=== PATIENT | male | born 1930 | race Caucasian/White ===

== ENCOUNTER 2016-03-10 13:43 | Inpatient (IN) | payer MEDICARE ==
--- NOTE | 2016-03-10 16:01 | RAD ---
INDICATION: Dizziness, trauma. COMPARISON: Comparison is made with prior CT of the brain from January 07, 2003. TECHNIQUE: Contiguous axial sections of the brain were obtained from the skull base to the vertex without contrast. FINDINGS: The ventricles, cisterns and sulci are enlarged consistent with age-related atrophy. There are small areas of decreased density in the subcortical and periventricular white matter suggestive of mild chronic small vessel ischemic changes. In addition there is a focal area of decreased density in the medial right temporal lobe which is unchanged from the prior exam consistent with an old lacunar infarct or prominent perivascular space. There is no evidence for hemorrhage. 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 No significant focal osseous abnormality is seen. The visualized portion of the paranasal sinuses and mastoid air cells appear clear. IMPRESSION: 1. NO EVIDENCE FOR GROSS ACUTE INFARCT, MASS EFFECT OR HEMORRHAGE. 2. FINDINGS CONSISTENT WITH MILD CHRONIC SMALL VESSEL ISCHEMIC CHANGES.
--- NOTE | 2016-03-10 16:03 | RAD ---
Indication: Multiple falls. Tachycardia, weakness. Assess for pneumonia. Comparison: May 09, 2006 Technique: Upright AP 1542 hours Report: Patchy bilateral pulmonary opacities greatest in the RIGHT infrahilar region suspicious for bronchopneumonia given the clinical context. Mild linear RIGHT basilar atelectasis. Costochondral calcification superimposed at the level of the LEFT lower lung zone. Potential small LEFT pleural effusion. Negative for pneumothorax. The heart, pulmonary vasculature, and mediastinal contours are unremarkable. IMPRESSION: The constellation of findings is suspicious for bronchopneumonia.
[2016-03-10 16:12] LABS: Hematocrit 47 % (42-52); Hemoglobin 15.2 g/dl (14.0-18.0); Mean Corpuscular HGB Conc 32 g/dl (31-36); Mean Corpuscular Hemoglobin 25 pg (27-31); Mean Corpuscular Volume 77 fL (80-94); Mean Platelet Volume 9 um3 (7.4-10.4); Red Blood Count 6.08 10^6/ul (4.0-5.4); Red Cell Distribution Width 18 % (10.5-15); White Blood Count 27.2 10^3/ul (3.5-10.8)
[2016-03-10 16:14] LABS: Add Diff/Slide Review? Slide Review Added; Comments Flag Yes
[2016-03-10 16:21] LABS: Urine Bilirubin Negative (Negative); Urine Glucose Negative (Negative); Urine Nitrite Negative (Negative)
[2016-03-10 16:27] LABS: Albumin 3.9 g/dL (3.2-5.2); BUN/Creatinine Ratio 19.3 (8-20); Calcium 9.8 mg/dL (8.6-10.3); EGFR African American 83.1 (>60); EGFR Non-African American 64.6 (>60); Globulin 3.9 g/dL (2-4); Potassium 3.7 mmol/L (3.5-5.0); Total Bilirubin 0.7 mg/dL (0.2-1.0); Total Protein 7.8 g/dL (6.4-8.9)
[2016-03-10 16:29] LABS: Troponin I 0.03 ng/mL (<0.04)
[2016-03-10 16:47] LABS: Immature Granulocytes 7 % (0-9); Metamyelocytes % 3 % (0-2); Myelocytes % 1 % (0-1); Neutrophil % 81 % (38-83); RBC Morphology Normal (Normal)
[2016-03-10] MEDS ORDERED: Piperac/Tazob 3.375 gm in NS* 3.375 GM/100 ML BAG IVPB ONE (16:55)
[2016-03-10] MEDS ORDERED: NS 0.9% 1000 ML* 1,000 ML IV ONE ×2 (17:02)
[2016-03-10] MEDS ORDERED: Acetaminophen TAB* 325 MG PO ONE (17:55)
[2016-03-10] MEDS ORDERED: Acetaminophen TAB* 325 MG ONE (17:56)
[2016-03-10] MEDS ORDERED: Albuterol 2.5 MG/3 ML NEB.SOL* (0.083%) INH PRN (18:27)
[2016-03-10 18:29] LABS: TSH (Thyroid Stimulating Horm) 2.87 mcIU/mL (0.34-5.60)
[2016-03-10] MEDS: NS 0.9% 1000 ML* 1,000 ML IV SCH (20:08)
[2016-03-10] MEDS: predniSONE TAB* 10 MG PO SCH (20:08)
[2016-03-10] MEDS: Omeprazole CAP* 20 MG PO SCH (20:08)
[2016-03-10] MEDS ORDERED: Levofloxacin 500 MG IVPREMIX(* 500 MG/100 ML BAG IVPB SCH (21:00)
[2016-03-10] MEDS ORDERED: Levofloxacin 750 MG IVPREMIX(* 750 MG/150 ML BAG IVPB ONE (21:00)
[2016-03-10] MEDS: cefTRIAXone VIAL(*) 1,000 MG in NS 0.9% 50 ML* 50 ML IVPB SCH (21:18)
[2016-03-10] MEDS ORDERED: Aspirin EC TAB* 325 MG PO ONE (21:26)
--- NOTE | 2016-03-10 21:37 | ED ---
Ashlie Flores Erika, scribed for Beto Phillips MD on 03/10/16 at 1608 . Dizziness - HPI Summary HPI Summary: Patient is an 85-year-old male presenting to the ED with a CC of lightheadedness starting yesterday. Patient reports he has fallen 3x today due to the lightheadedness. Symptoms are aggravated by supine to erect position change. He also reports that he has had similar symptoms intermittently for a long time. Patient reports that he has been taking prednisone for the past year , but cannot state why besides "I feel bad when I stop taking it." He states he has recently been tapering the prednisone, and has noted increased episodes of lightheadedness since he began to taper the prednisone. Pt denies vomiting, diarrhea, decreased PO intake, and pain. Pt also now states that when he was trying to hammer a nail yesterday, he kept missing the nail to the right side. He does not drink alcohol. FHx aneurysm. Prior records reviewed: December 2011 - left inguinal hernia repair. At that point, past medical was only HTN and GERD. Mother in 80s from natural causes, father in 70s from aneurysm. - History Of Current Complaint Chief Complaint: EDDizziness Stated Complaint: DIZZY Time Seen by Provider: 03/10/16 15:28 Hx Obtained From: Patient Timing: Intermittent Episode Lasting Severity Currently: Moderate Character: Lightheaded Aggravating Factor(s): Supine To Erect Associated Signs And Symptoms: Negative: Vomiting, Diarrhea, Decreased Oral Intake - Allergies/Home Medications Allergies/Adverse Reactions: Allergies Allergy/AdvReac Type Severity Reaction Status Date / Time No Known Allergies Allergy Verified 01/09/12 08:16 Home Medications: Home Medications Aspirin [Aspirin Childrens] 81 mg PO DAILY 03/10/16 [History Confirmed 03/10/16] Losartan Potassium & Hydrochlo [Hyzaar 50/12.5 mg] 1 tab PO DAILY 03/10/16 [ History Confirmed 03/10/16] Omeprazole CAP* [Prilosec CAP* 20 MG] 40 mg PO BID 03/10/16 [History Confirmed 03/10/16] predniSONE TAB* [Deltasone TAB*] 10 mg PO BID 03/10/16 [History Confirmed ] PMH/Surg Hx/FS Hx/Imm Hx Cardiovascular History: Reports: Hx Hypertension - TAKING MEDICATION GI History: Reports: Hx Gastroesophageal Reflux Disease - HAD SURGERY NOT SURE WHAT WAS DONE. ON NEXIUM. Sensory History: Reports: Hx Contacts or Glasses - GLASSES, Hx Hearing Aid Opthamlomology History: Reports: Hx Contacts or Glasses - GLASSES - Surgical History Surgery Procedure, Year, and Place: 2000 LAP CRISTIAN FUNDOPLICATION [facility]. 2000 L HIP FRACTURE [facility]. 07/29 RIGHT INGUINAL HERNAI REPAIR Hx Anesthesia Reactions: No Infectious Disease History: No Infectious Disease History: Denies: Traveled Outside the [place] in Last 30 Days - Family History Known Family History: Positive: Other - aneurysm - Social History Alcohol Use: None Hx Substance Use: No Substance Use Type: Reports: None Review of Systems Negative: Vomiting, Diarrhea Negative: Arthralgia, Myalgia Neurological: Other - lightheadedness All Other Systems Reviewed And Are Negative: Yes Physical Exam - Summary Physical Exam Summary: Constitutional: Comfortable, pleasant, alert HEENT: moist mucosa, HOA Neck: Soft, supple, no adenopathy, no edema Heart: S1, S2, HR is 100 bpm currently while lying down, and does not change with sitting up. He does note slight lightheadedness with sitting. No murmurs, rubs, or gallops Lungs: clear, breathing comfortably, no wheezes, no rales Abdomen: Soft, flat, non-tender. Extremities: No edema, calves non-tender Neurological: A&Ox3. CN III-XII intact. Strength 5/5 throughout. Negative pronator drift. Finger to nose intact. Psychological: logical, coherent Triage Information Reviewed: Yes Vital Signs On Initial Exam: Initial Vitals Temp Pulse Resp BP Pulse Ox 98.1 F 101 18 143/83 91 03/10/16 14:28 03/10/16 14:28 03/10/16 14:28 03/10/16 14:28 03/10/16 14:28 Vital Signs Reviewed: Yes Diagnostics - Vital Signs Vital Signs Temp Pulse Resp BP Pulse Ox 03/10/16 14:28 98.1 F 101 18 143/83 91 - Laboratory Lab Results: Lab Results 03/10/16 03/10/16 03/10/16 Range/Units 16:00 16:00 16:00 WBC 27.2 H (3.5-10.8) 10^3/ul RBC 6.08 H (4.0-5.4) 10^6/ul Hgb 15.2 (14.0-18.0) g/dl Hct 47 (42-52) % MCV 77 L (80-94) fL MCH 25 L (27-31) pg MCHC 32 (31-36) g/dl RDW 18 H (10.5-15) % Plt Count 389 (150-450) 10^3/ul MPV 9 (7.4-10.4) um3 Immature Gran % (Auto) 7 (0-9) % Neut % (Auto) 80.0 (38-83) % Lymph % (Auto) 5.5 L (25-47) % [place] % (Auto) 13.1 H (1-9) % Eos % (Auto) 0.7 (0-6) % Baso % (Auto) 0.7 (0-2) % Absolute Neuts (auto) 21.8 H (1.5-7.7) 10^3/ul Absolute Lymphs (auto) 1.5 (1.0-4.8) 10^3/ul Absolute Monos (auto) 3.6 H (0-0.8) 10^3/ul Absolute Eos (auto) 0.2 (0-0.6) 10^3/ul Absolute Basos (auto) 0.2 (0-0.2) 10^3/ul Absolute Nucleated RBC 0 10^3/ul Neutrophils % 81 (38-83) % Band Neutrophils % 3 (0-8) % Lymphocytes % 7 L (25-47) % Monocytes % 5 (0-13) % Metamyelocytes % 3 H (0-2) % Myelocytes % 1 (0-1) % Nucleated RBC % 0 Normal RBC Morphology Normal (Normal) INR (Anticoag Therapy) 1.02 (0.89-1.11) APTT 26.8 (26.0-36.3) seconds Sodium (133-145) mmol/L Potassium (3.5-5.0) mmol/L Chloride (101-111) mmol/L Carbon Dioxide (22-32) mmol/L Anion Gap (2-11) mmol/L BUN (6-24) mg/dL Creatinine (0.67-1.17) mg/dL Est GFR ( Amer) (>60) Est GFR (Non-Af Amer) (>60) BUN/Creatinine Ratio (8-20) Glucose (70-100) mg/dL Lactic Acid (0.5-2.0) mmol/L Calcium (8.6-10.3) mg/dL Total Bilirubin (0.2-1.0) mg/dL AST (13-39) U/L ALT (7-52) U/L Alkaline Phosphatase (34-104) U/L Troponin I (<0.04) ng/mL Total Protein (6.4-8.9) g/dL Albumin (3.2-5.2) g/dL Globulin (2-4) g/dL Albumin/Globulin Ratio (1-3) Procalcitonin (<0.6) ng/mL TSH (0.34-5.60) mcIU/mL Urine Color Yellow Urine Appearance Clear Urine pH 6.0 (5-9) Ur Specific [place] 1.014 (1.010-1.030) Urine Protein Negative (Negative) Urine Ketones Negative (Negative) Urine Blood Negative (Negative) Urine Nitrate Negative (Negative) Urine Bilirubin Negative (Negative) Urine Urobilinogen Negative (Negative) Ur Leukocyte Esterase Negative (Negative) Urine Glucose Negative (Negative) 03/10/16 03/10/16 03/10/16 Range/Units 16:00 16:00 16:00 WBC (3.5-10.8) 10^3/ul RBC (4.0-5.4) 10^6/ul Hgb (14.0-18.0) g/dl Hct (42-52) % MCV (80-94) fL MCH (27-31) pg MCHC (31-36) g/dl RDW (10.5-15) % Plt Count (150-450) 10^3/ul MPV (7.4-10.4) um3 Immature Gran % (Auto) (0-9) % Neut % (Auto) (38-83) % Lymph % (Auto) (25-47) % Daggett % (Auto) (1-9) % Eos % (Auto) (0-6) % Baso % (Auto) (0-2) % Absolute Neuts (auto) (1.5-7.7) 10^3/ul Absolute Lymphs (auto) (1.0-4.8) 10^3/ul Absolute Monos (auto) (0-0.8) 10^3/ul Absolute Eos (auto) (0-0.6) 10^3/ul Absolute Basos (auto) (0-0.2) 10^3/ul Absolute Nucleated RBC 10^3/ul Neutrophils % (38-83) % Band Neutrophils % (0-8) % Lymphocytes % (25-47) % Monocytes % (0-13) % Metamyelocytes % (0-2) % Myelocytes % (0-1) % Nucleated RBC % Normal RBC Morphology (Normal) INR (Anticoag Therapy) (0.89-1.11) APTT (26.0-36.3) seconds Sodium 132 L (133-145) mmol/L Potassium 3.7 (3.5-5.0) mmol/L Chloride 98 L (101-111) mmol/L Carbon Dioxide 26 (22-32) mmol/L Anion Gap 8 (2-11) mmol/L BUN 21 (6-24) mg/dL Creatinine 1.09 (0.67-1.17) mg/dL Est GFR ( Amer) 83.1 (>60) Est GFR (Non-Af Amer) 64.6 (>60) BUN/Creatinine Ratio 19.3 (8-20) Glucose 91 (70-100) mg/dL Lactic Acid 1.2 (0.5-2.0) mmol/L Calcium 9.8 (8.6-10.3) mg/dL Total Bilirubin 0.70 (0.2-1.0) mg/dL AST 20 (13-39) U/L ALT 16 (7-52) U/L Alkaline Phosphatase 64 (34-104) U/L Troponin I 0.03 (<0.04) ng/mL Total Protein 7.8 (6.4-8.9) g/dL Albumin 3.9 (3.2-5.2) g/dL Globulin 3.9 (2-4) g/dL Albumin/Globulin Ratio 1.0 (1-3) Procalcitonin 0.1 (<0.6) ng/mL TSH 2.87 (0.34-5.60) mcIU/mL Urine Color Urine Appearance Urine pH (5-9) Ur Specific [place] (1.010-1.030) Urine Protein (Negative) Urine Ketones (Negative) Urine Blood (Negative) Urine Nitrate (Negative) Urine Bilirubin (Negative) Urine Urobilinogen (Negative) Ur Leukocyte Esterase (Negative) Urine Glucose (Negative) Result Diagrams: 03/10/16 16:00 03/10/16 16:00 Lab Statement: Any lab studies that have been ordered have been reviewed, and results considered in the medical decision making process. - Radiology CXR Radiology Interpretation Completed By: Radiologist - IMPRESSION: The constellation of findings is suspicious for bronchopneumonia. - CT Brain CT CT Interpretation Completed By: Radiologist - IMPRESSION: 1. NO EVIDENCE FOR GROSS ACUTE INFARCT, MASS EFFECT OR HEMORRHAGE. 2. FINDINGS CONSISTENT WITH MILD CHRONIC SMALL VESSEL ISCHEMIC CHANGES. - EKG 13:51 Cardiac Rate: Tachycardia - at 100 bpm EKG Rhythm: Sinus Tachycardia EKG Interpretation: ST depressions in lateral leads, J point elevation V1 V2 17:53 Cardiac Rate: NL - 86 bpm EKG Interpretation: Unchanged from prior Dizzy Course/Dx - Course Assessment/Plan: His Hx is difficult to decipher - he states he has had falls in the past and lightheadedness related to DC-ing his prednisone. He does not know why he is on prednisone, but he thinks he has been on it for about 9 months. He has decreased his dose from 20 mg to 15 mg, which should not really make him symptomatic. His white count is increased markedly. He presents with tachycardia. As far as he can tell he has been afebrile at home. We will treat him as sepsis until blood cultures tell us otherwise. CXR is suspicious for pneumonia. EKG shows ST depressions in the lateral leads and J point elevation in V1, V2. Without cardiac Sx or an elevated troponin, I do not believe this is NSTEMI. He will be admitted by Dr. Skaggs. - Diagnoses Provider Diagnoses: Imbalance, Tachycardia, Lymphocytosis - Provider Notifications Discussed Care Of Patient with: Dr. Skaggs (hospitalist) at 17:00 - agrees to admit Discharge - Discharge Plan Condition: Stable Disposition: ADMITTED TO [facility] The documentation as recorded by the Ashlie guerra Erika accurately reflects the service I personally performed and the decisions made by me, Beto Phillips MD.
[2016-03-10] MEDS: Azithromycin IV(*) 500 MG in NS 0.9% 250 ML* 250 ML IVPB SCH (21:56)
--- NOTE | 2016-03-10 22:45 | HP ---
HISTORY AND PHYSICAL: DATE OF ADMISSION: 03/10/16 PROVIDER: Valentine Pedroza NP ATTENDING PHYSICIAN: Dr. Peterson *(reported dictated by Valentine Pedroza NP). PRIMARY CARE PHYSICIAN: Dr. Wilson. CHIEF COMPLAINT: Weakness and falls. HISTORY OF PRESENT ILLNESS: Mr. Chavez is an 85-year-old male with a past medical history of hypertension and GERD who presents to the emergency department with reports of falls and weakness starting yesterday. The patient reports he fell 3 times a day due to lightheadedness. He denies dizziness or numbness or tingling, but reports generalized weakness when he feels lightheaded. The patient denies any speech difficulties or visual complaints. He denies arthralgias or myalgias. The patient reports that yesterday, he had a headache and lightheadedness. The patient reports he has a history of lightheadedness and when he goes from sitting to standing, he frequently gets dizzy. He denies passing out. Today, the patient reports that he went to see his primary care who sent him to the hospital for further evaluation. The patient denies any fevers or chills. No anorexia. Denies cough, shortness of breath, or chest pain. The patient now in the emergency department does feel like he has a slight fever for the first time. No open wounds, rashes, or lesions. Per , who is at the bedside, she reports that her has had a long history of lightheadedness and falls, but he is not feeling well and this is not uncommon. In the emergency department, the patient underwent a chest x-ray that is suspicious for bronchial pneumonia. He is noted to be slightly tachycardic in the emergency department and he presents with the white blood cell count of 27.2. The patient is on prednisone at home. However, he nor his know the reason why he is on the prednisone and states he thinks he has been on it for approximately 9 months. His primary care provider has been tapering him down over the last several weeks. PAST MEDICAL HISTORY: 1. Hypertension. 2. GERD. 3. History of left hernia. 4. Hip ORIF in 2006. 5. Laparoscopic Elias fundoplication in 2000. HOME MEDICATIONS: 1. Calcium plus D 600-200 mg-unit one tab p.o. daily. 2. Aspirin 81 mg p.o. daily. 3. Prednisone 10 mg p.o. b.i.d. 4. Multivitamin/mineral one tab p.o. daily. 5. Omeprazole 40 mg p.o. b.i.d. 6. Losartan potassium and hydrochlorothiazide 50-12.5 mg one tab p.o. b.i.d. ALLERGIES: No known allergies. FAMILY HISTORY: His father at a young age of a brain aneurysm. His mother at age 85 he believes of alcoholism and she was a heavy smoker. SOCIAL HISTORY: Distant history of smoking, quitting over 40 years ago. No alcohol use. He currently lives at home with his , who is his healthcare proxy. He has 3 grown children. REVIEW OF SYSTEMS: A 14-point review of systems were performed. All the pertinent positives and negatives are mentioned in the history of present illness. All the remaining systems are negative. PHYSICAL EXAMINATION APPEARANCE: An 85-year-old male, sitting on the emergency department stretcher , alert and oriented x3, in no acute distress. Appears to have a flushed face. VITAL SIGNS: Temperature 100.0, heart rate 102, respirations 18, O2 sat 96% on room air, blood pressure 132/67. HEENT: Head is normocephalic, atraumatic. Pupils are equal and reactive to light. Oropharynx is clear. No oropharyngeal edema or erythema noted. No exudate noted. Dentures noted. NECK: No cervical or supraclavicular lymphadenopathy. RESPIRATORY: No accessory muscle use. Right lower lobe crackles and it is diminished. Left lung is clear throughout. No accessory muscle use. CARDIAC: S1, S2. No murmurs, rubs or gallops appreciated. No lower extremity edema. 2+ DP pulses bilaterally. ABDOMEN: Soft, nontender, nondistended. Normal bowel sounds x4. MUSCULOSKELETAL: Strength is 5/5 throughout. No abnormalities. Full range of motion in all extremities. SKIN: No rashes, lesions, or open wounds noted. Warm, pink, dry. NEUROLOGIC: Cranial nerves II through XII are intact. Moves all extremities equally. Sensation to lower extremities is intact to light touch. Tongue is midline. No facial droop, no pronator drift. PSYCH: Alert and oriented x3, appropriate to situation. DIAGNOSTIC STUDIES/LABORATORY DATA: WBC is 27.2, RBC is 6.08, Hgb 15.2, HCT 47 , MCV 77, MCH 25, MCHC 32, RDW 18, platelet count 389. INR 1.02. Sodium 132, potassium 3.7, chloride 98, carbon dioxide 26, anion gap 8, BUN 21, creatinine 1.09, glucose 91, lactic acid 1.2, calcium 9.8, total bilirubin 0.70, AST 20, ALT 16, alkaline phosphatase 64, troponin 0.03, total protein 7.8, albumin 3.9. TSH 2.87. Urinalysis negative. Chest x-ray, impression. The constellation of findings suspicious for bronchial pneumonia. Brain CT, no evidence for gross acute infarct, mass effect, or hemorrhage. Findings consistent with mild chronic small vessel ischemic changes. EKG: Sinus rhythm with the rate of 86. In comparison to prior EKG, no acute ischemic changes noted. ASSESSMENT AND PLAN: Mr. Chavez is an 85-year-old male with a past medical history of hypertension and gastroesophageal reflux disease who presents to the emergency department today with complaint of lightheadedness, headache, and falls, who was found to have a suspicion for right bronchial pneumonia. 1. Weakness, falls, and lightheadedness. I suspect this is secondary to infection. It appears that he does have pneumonia as evidenced of the chest x- ray as well as clinically, he does appear to possibly be mildly ill with a flushed face, mild tachycardia and presents with a leukocytosis of 27,000. The patient does not have other symptoms of pneumonia such as coughing or sputum production. I will add on procalcitonin level. He received Zosyn in the emergency department. We will continue ceftriaxone, azithromycin. We will continue gentle IV fluids overnight. Per the patient and , the patient's symptoms of lightheadedness and dizzy and falls are not new for him. Could consider Neuro consult. We will add on neuro checks. PT consult, check orthostatics. Monitor on telemetry. Obtain echocardiogram. 2. Abnormal peripheral smear with noted metamyelocytes. Please call Hematology tomorrow to review smear. 3. Hypertension. Controlled, continue losartan, hold hydrochlorothiazide. 4. Prednisone therapy. Unclear why the patient is chronically on prednisone, obtain records from PCP. It may be difficulty to do that as it is the weekend. 5. DVT prophylaxis. Heparin subcu. 6. Code status. DNR. MOLST has been signed and is on the chart. TIME SPENT: Approximately 60 minutes were spent on this admission. This case is reviewed with Dr. Peterson, attending physician, who agrees with plan of care. VALENTINE PEDROZA NP CC: Dr. Wilson * [id number]/CPS #: [id number] LAMIN
[2016-03-11 07:18] LABS: Hematocrit 41 % (42-52); Hemoglobin 13.2 g/dl (14.0-18.0); Mean Corpuscular HGB Conc 33 g/dl (31-36); Mean Corpuscular Hemoglobin 25 pg (27-31); Mean Corpuscular Volume 78 fL (80-94); Mean Platelet Volume 9 um3 (7.4-10.4); Red Blood Count 5.22 10^6/ul (4.0-5.4); Red Cell Distribution Width 18 % (10.5-15); White Blood Count 20.7 10^3/ul (3.5-10.8)
[2016-03-11 07:22] LABS: Add Diff/Slide Review? Slide Review Added; Comments Flag Yes
[2016-03-11 07:28] LABS: Calcium 8.7 mg/dL (8.6-10.3); EGFR African American 85.8 (>60); EGFR Non-African American 66.7 (>60); Potassium 3.8 mmol/L (3.5-5.0)
[2016-03-11] MEDS: NS 0.9% 1000 ML* 1,000 ML IV SCH (09:04)
[2016-03-11] MEDS: Omeprazole CAP* 20 MG PO SCH ×2 (09:07→17:27)
[2016-03-11] MEDS: Multivitamins/Minerals TAB PO SCH (09:07)
[2016-03-11] MEDS: Aspirin Low Dose CHEW TAB* 81 MG PO SCH (09:08)
[2016-03-11] MEDS: predniSONE TAB* 10 MG PO SCH ×2 (09:08→21:55)
[2016-03-11] MEDS: Losartan TAB* 25 MG PO SCH (09:08)
--- NOTE | 2016-03-11 15:44 | PN ---
Subjective Date of Service: 03/11/16 Interval History: Patient seen and examined at bedside. He still reports some lightheadedness but is feeling better. Denies fever/chills, chest pain, SOB, abd pain, n/v. He reports that he was started on prednisone for generalized muscle pain. His PCP has reportedly attempted to wean him in the past but his symptoms returned. He is now in the weaning process again, and he feels this may be contributing to his lightheadedness. Telemetry: SR with PVCs, 80s Family History: Unchanged from Admission Social History: Unchanged from Admission Past Medical History: Unchanged from Admission Objective Active Medications: Albuterol (Ventolin 2.5 Mg/3 Ml Neb.Zina*) 2.5 mg INH Q4H PRN PRN Reason: SOB/WHEEZING Aspirin (Aspirin Low Dose Tab*) 81 mg PO DAILY [facility] Last Admin: 03/11/16 09:08 Dose: 81 mg Sodium Chloride (Ns 0.9% 1000 Ml*) 1,000 mls @ 100 mls/hr IV PER RATE [facility] Stop: 03/12/16 04:29 Last Admin: 03/11/16 09:04 Dose: 100 mls/hr Ceftriaxone Sodium 1,000 mg/ (Sodium Chloride) 50 mls @ 200 mls/hr IVPB Q24H [facility] Last Admin: 03/10/16 21:18 Dose: 200 mls/hr Azithromycin 500 mg/ Sodium (Chloride) 250 mls @ 250 mls/hr IVPB Q24H [facility] Last Admin: 03/10/16 21:56 Dose: 250 mls/hr Losartan Potassium (Cozaar Tab*) 50 mg PO DAILY [facility] Last Admin: 03/11/16 09:08 Dose: 50 mg Multivitamins/Minerals (Theragran/Minerals Tab*) 1 tab PO DAILY [facility] Last Admin: 03/11/16 09:07 Dose: 1 tab Omeprazole (Prilosec Cap*) 40 mg PO BID@0730,1630 [facility] Last Admin: 03/11/16 09:07 Dose: 40 mg Prednisone (Deltasone Tab*) 10 mg PO BID [facility] Last Admin: 03/11/16 09:08 Dose: 10 mg Vital Signs 03/10/16 03/10/16 03/10/16 19:55 22:50 23:38 Temperature 98.4 F Pulse Rate 83 Respiratory 16 18 Rate Blood Pressure 145/70 (mmHg) O2 Sat by Pulse 93 96 Oximetry 03/11/16 03/11/16 03/11/16 00:32 04:04 06:27 Temperature 98.3 F 98.0 F Pulse Rate 71 66 77 Respiratory 16 16 Rate Blood Pressure 116/44 101/55 131/64 (mmHg) O2 Sat by Pulse 93 93 Oximetry 03/11/16 03/11/16 03/11/16 08:00 08:26 11:08 Temperature 98.0 F Pulse Rate 76 64 Respiratory 14 16 Rate Blood Pressure 115/58 (mmHg) O2 Sat by Pulse 96 96 93 Oximetry Oxygen Devices in Use Now: None Appearance: Male patient, lying in bed, in NAD Eyes: PERRLA Ears/Nose/Mouth/Throat: Clear Oropharnyx, Mucous Membranes Moist Neck: NL Appearance and Movements; NL JVP Respiratory: Symmetrical Chest Expansion and Respiratory Effort, Clear to Auscultation - RLL rales Cardiovascular: NL Sounds; No Murmurs; No JVD, RRR Abdominal: NL Sounds; No Tenderness; No Distention Extremities: No Edema Skin: No Rash or Ulcers Neurological: Alert and Oriented x 3 Lines/Tubes/Other Access: Clean, Dry and Intact Peripheral IV Nutrition: Taking PO's Result Diagrams: 03/11/16 05:44 03/11/16 05:44 Additional Lab and Data: Lab Results 03/10/16 03/10/16 03/10/16 Range/Units 16:00 16:00 16:00 WBC 27.2 H (3.5-10.8) 10^3/ul RBC 6.08 H (4.0-5.4) 10^6/ul Hgb 15.2 (14.0-18.0) g/dl Hct 47 (42-52) % MCV 77 L (80-94) fL MCH 25 L (27-31) pg MCHC 32 (31-36) g/dl RDW 18 H (10.5-15) % Plt Count 389 (150-450) 10^3/ul MPV 9 (7.4-10.4) um3 Immature Gran % (Auto) 7 (0-9) % Neut % (Auto) 80.0 (38-83) % Lymph % (Auto) 5.5 L (25-47) % [place] % (Auto) 13.1 H (1-9) % Eos % (Auto) 0.7 (0-6) % Baso % (Auto) 0.7 (0-2) % Absolute Neuts (auto) 21.8 H (1.5-7.7) 10^3/ul Absolute Lymphs (auto) 1.5 (1.0-4.8) 10^3/ul Absolute Monos (auto) 3.6 H (0-0.8) 10^3/ul Absolute Eos (auto) 0.2 (0-0.6) 10^3/ul Absolute Basos (auto) 0.2 (0-0.2) 10^3/ul Absolute Nucleated RBC 0 10^3/ul Neutrophils % 81 (38-83) % Band Neutrophils % 3 (0-8) % Lymphocytes % 7 L (25-47) % Monocytes % 5 (0-13) % Metamyelocytes % 3 H (0-2) % Myelocytes % 1 (0-1) % Nucleated RBC % 0 Normal RBC Morphology Normal (Normal) INR (Anticoag Therapy) 1.02 (0.89-1.11) APTT 26.8 (26.0-36.3) seconds Sodium (133-145) mmol/L Potassium (3.5-5.0) mmol/L Chloride (101-111) mmol/L Carbon Dioxide (22-32) mmol/L Anion Gap (2-11) mmol/L BUN (6-24) mg/dL Creatinine (0.67-1.17) mg/dL Est GFR ( Amer) (>60) Est GFR (Non-Af Amer) (>60) BUN/Creatinine Ratio (8-20) Glucose (70-100) mg/dL Lactic Acid (0.5-2.0) mmol/L Calcium (8.6-10.3) mg/dL Total Bilirubin (0.2-1.0) mg/dL AST (13-39) U/L ALT (7-52) U/L Alkaline Phosphatase (34-104) U/L Troponin I (<0.04) ng/mL Total Protein (6.4-8.9) g/dL Albumin (3.2-5.2) g/dL Globulin (2-4) g/dL Albumin/Globulin Ratio (1-3) Procalcitonin (<0.6) ng/mL TSH (0.34-5.60) mcIU/mL Urine Color Yellow Urine Appearance Clear Urine pH 6.0 (5-9) Ur Specific [place] 1.014 (1.010-1.030) Urine Protein Negative (Negative) Urine Ketones Negative (Negative) Urine Blood Negative (Negative) Urine Nitrate Negative (Negative) Urine Bilirubin Negative (Negative) Urine Urobilinogen Negative (Negative) Ur Leukocyte Esterase Negative (Negative) Urine Glucose Negative (Negative) 03/10/16 03/10/16 03/10/16 Range/Units 16:00 16:00 16:00 WBC (3.5-10.8) 10^3/ul RBC (4.0-5.4) 10^6/ul Hgb (14.0-18.0) g/dl Hct (42-52) % MCV (80-94) fL MCH (27-31) pg MCHC (31-36) g/dl RDW (10.5-15) % Plt Count (150-450) 10^3/ul MPV (7.4-10.4) um3 Immature Gran % (Auto) (0-9) % Neut % (Auto) (38-83) % Lymph % (Auto) (25-47) % [place] % (Auto) (1-9) % Eos % (Auto) (0-6) % Baso % (Auto) (0-2) % Absolute Neuts (auto) (1.5-7.7) 10^3/ul Absolute Lymphs (auto) (1.0-4.8) 10^3/ul Absolute Monos (auto) (0-0.8) 10^3/ul Absolute Eos (auto) (0-0.6) 10^3/ul Absolute Basos (auto) (0-0.2) 10^3/ul Absolute Nucleated RBC 10^3/ul Neutrophils % (38-83) % Band Neutrophils % (0-8) % Lymphocytes % (25-47) % Monocytes % (0-13) % Metamyelocytes % (0-2) % Myelocytes % (0-1) % Nucleated RBC % Normal RBC Morphology (Normal) INR (Anticoag Therapy) (0.89-1.11) APTT (26.0-36.3) seconds Sodium 132 L (133-145) mmol/L Potassium 3.7 (3.5-5.0) mmol/L Chloride 98 L (101-111) mmol/L Carbon Dioxide 26 (22-32) mmol/L Anion Gap 8 (2-11) mmol/L BUN 21 (6-24) mg/dL Creatinine 1.09 (0.67-1.17) mg/dL Est GFR ( Amer) 83.1 (>60) Est GFR (Non-Af Amer) 64.6 (>60) BUN/Creatinine Ratio 19.3 (8-20) Glucose 91 (70-100) mg/dL Lactic Acid 1.2 (0.5-2.0) mmol/L Calcium 9.8 (8.6-10.3) mg/dL Total Bilirubin 0.70 (0.2-1.0) mg/dL AST 20 (13-39) U/L ALT 16 (7-52) U/L Alkaline Phosphatase 64 (34-104) U/L Troponin I 0.03 (<0.04) ng/mL Total Protein 7.8 (6.4-8.9) g/dL Albumin 3.9 (3.2-5.2) g/dL Globulin 3.9 (2-4) g/dL Albumin/Globulin Ratio 1.0 (1-3) Procalcitonin 0.1 (<0.6) ng/mL TSH 2.87 (0.34-5.60) mcIU/mL Urine Color Urine Appearance Urine pH (5-9) Ur Specific [place] (1.010-1.030) Urine Protein (Negative) Urine Ketones (Negative) Urine Blood (Negative) Urine Nitrate (Negative) Urine Bilirubin (Negative) Urine Urobilinogen (Negative) Ur Leukocyte Esterase (Negative) Urine Glucose (Negative) Microbiology and Other Data: Microbiology 03/11/16 00:40 Legionella Urinary Antigen - Final Urine Negative Legionella Streptococcus pneumoniae Ag Screen - Final Negative S. pneumo Antigen Assess/Plan/Problems-Billing Assessment: Mr. Chavez is an 85 yo male with a PMH of HTN, GERD, left hernia, and Elias fundoplication who presented to the ED on 03/10/16 with weakness and falls secondary to dizziness. - Patient Problems (1) Community acquired pneumonia Code(s): J18.9 - PNEUMONIA, UNSPECIFIED ORGANISM Comment: Improvement in WBC today, procalcitonin negative CXR shows right bronchopneumonia Continue IVF, ceftriaxone and azithromycin Tmax 100.0 in ED Urine legionella and strep pneumo antigens negative (2) Falls Comment: Unclear etiology Orthostatic VS negative Echocardiogram pending Telemetry WNL CT brain negative for acute processes Continue PT - PT recommends 1-2 additional inpatient days and work on stairs (3) Hematologic abnormality Code(s): R79.9 - ABNORMAL FINDING OF BLOOD CHEMISTRY, UNSPECIFIED Comment: I discussed the results with Dr. Moulton, who will review the smear Per hematology, suspect it may be secondary to acute illness Plan to trend CBC, check FISH BCR abl Appreciate hematology guidance and input (4) HTN (hypertension) Code(s): I10 - ESSENTIAL (PRIMARY) HYPERTENSION Comment: Normotensive, continue losartan (5) GERD (gastroesophageal reflux disease) Code(s): K21.9 - GASTRO-ESOPHAGEAL REFLUX DISEASE WITHOUT ESOPHAGITIS Comment : Stable, continue omeprazole. (6) Chronic use of steroids Code(s): PFW2957 - Comment: Continue prednisone at 10 mg. Unclear as to why patient taking medication; awaiting progress notes from PCP; unable to obtain until Sunday Patient states he takes prednisone for chronic muscle pain and inflammation He states his symptoms worsened when prednisone was tapered. CT brain negative for acute processes. (7) DVT prophylaxis Comment: SQ heparin Status and Disposition: OBV admit. Plan for d/c to home when medically stable.
[2016-03-11] MEDS: cefTRIAXone VIAL(*) 1,000 MG in NS 0.9% 50 ML* 50 ML IVPB SCH (21:46)
[2016-03-11] MEDS: Heparin VIAL(*) 5000 UNITS/ML VIAL (FIVE THOUSAND) SUBCUT SCH (21:55)
[2016-03-11] MEDS: Azithromycin IV(*) 500 MG in NS 0.9% 250 ML* 250 ML IVPB SCH (22:25)
[2016-03-12] MEDS: Heparin VIAL(*) 5000 UNITS/ML VIAL (FIVE THOUSAND) SUBCUT SCH ×3 (05:09→21:48)
[2016-03-12 06:17] LABS: Hematocrit 41 % (42-52); Hemoglobin 13.4 g/dl (14.0-18.0); Mean Corpuscular HGB Conc 32 g/dl (31-36); Mean Corpuscular Hemoglobin 25 pg (27-31); Mean Corpuscular Volume 78 fL (80-94); Mean Platelet Volume 9 um3 (7.4-10.4); Red Blood Count 5.29 10^6/ul (4.0-5.4); Red Cell Distribution Width 18 % (10.5-15); White Blood Count 14.6 10^3/ul (3.5-10.8)
[2016-03-12 06:23] LABS: Add Diff/Slide Review? Slide Review Added; Comments Flag Yes
[2016-03-12] MEDS: Multivitamins/Minerals TAB PO SCH (07:40)
[2016-03-12] MEDS: Omeprazole CAP* 20 MG PO SCH ×2 (07:40→15:15)
[2016-03-12] MEDS: Losartan TAB* 25 MG PO SCH (07:40)
[2016-03-12] MEDS: Aspirin Low Dose CHEW TAB* 81 MG PO SCH (07:41)
[2016-03-12] MEDS: predniSONE TAB* 10 MG PO SCH ×2 (07:41→21:47)
--- NOTE | 2016-03-12 10:27 | PN ---
Subjective Date of Service: 03/12/16 Interval History: Patient seen and examined at bedside. He reports feeling better this morning and denies any dizziness. He reports waking up with a headache that was "mild" and now it is gone. He states that he feels that his headaches and dizziness worsened 2-3 weeks ago as his prednisone dose was cut down. He cannot determine if the headache and dizziness present together. He reports a remote history of dizziness and vertigo maybe 40 years ago while skiing; he recalls that this incident was preceded by a headache. Denies fever/chills, vomiting, abd pain, chest pain, SOB. Reports minimally productive cough. Telemetry: SR 80s with PVCs Family History: Unchanged from Admission Social History: Unchanged from Admission Past Medical History: Unchanged from Admission Objective Active Medications: Albuterol (Ventolin 2.5 Mg/3 Ml Neb.Zina*) 2.5 mg INH Q4H PRN PRN Reason: SOB/WHEEZING Aspirin (Aspirin Low Dose Tab*) 81 mg PO DAILY [facility] Last Admin: 03/12/16 07:41 Dose: 81 mg Heparin Sodium (Porcine) (Heparin Vial(*)) 5,000 units SUBCUT Q8HR [facility] Last Admin: 03/12/16 05:09 Dose: 5,000 units Ceftriaxone Sodium 1,000 mg/ (Sodium Chloride) 50 mls @ 200 mls/hr IVPB Q24H [facility] Last Admin: 03/11/16 21:46 Dose: 200 mls/hr Azithromycin 500 mg/ Sodium (Chloride) 250 mls @ 250 mls/hr IVPB Q24H [facility] Last Admin: 03/11/16 22:25 Dose: 250 mls/hr Losartan Potassium (Cozaar Tab*) 50 mg PO DAILY [facility] Last Admin: 03/12/16 07:40 Dose: 50 mg Multivitamins/Minerals (Theragran/Minerals Tab*) 1 tab PO DAILY [facility] Last Admin: 03/12/16 07:40 Dose: 1 tab Omeprazole (Prilosec Cap*) 40 mg PO BID@0730,1630 [facility] Last Admin: 03/12/16 07:40 Dose: 40 mg Prednisone (Deltasone Tab*) 10 mg PO BID [facility] Last Admin: 03/12/16 07:41 Dose: 10 mg Vital Signs 03/11/16 03/11/16 03/11/16 11:08 16:14 19:25 Temperature 98.0 F 98.3 F 98.0 F Pulse Rate 64 63 74 Respiratory 16 16 16 Rate Blood Pressure 115/58 126/62 126/52 (mmHg) O2 Sat by Pulse 93 95 93 Oximetry 03/12/16 03/12/16 03/12/16 00:08 00:44 03:55 Temperature 97.7 F 97.9 F Pulse Rate 65 54 66 Respiratory 20 20 20 Rate Blood Pressure 120/59 119/54 (mmHg) O2 Sat by Pulse 96 97 96 Oximetry 03/12/16 03/12/16 07:24 07:28 Temperature 97.6 F Pulse Rate 55 Respiratory 16 Rate Blood Pressure 138/66 (mmHg) O2 Sat by Pulse 94 95 Oximetry Oxygen Devices in Use Now: None Appearance: Male patient, OOB to chair, in NAD Eyes: PERRLA Ears/Nose/Mouth/Throat: Clear Oropharnyx, Mucous Membranes Moist Neck: NL Appearance and Movements; NL JVP Respiratory: Symmetrical Chest Expansion and Respiratory Effort, Clear to Auscultation - RLL rales Cardiovascular: NL Sounds; No Murmurs; No JVD - soft, 1/6 systolic murmur, RRR Abdominal: NL Sounds; No Tenderness; No Distention Extremities: No Edema Skin: No Rash or Ulcers Neurological: Alert and Oriented x 3 Lines/Tubes/Other Access: Clean, Dry and Intact Peripheral IV Nutrition: Taking PO's Result Diagrams: 03/12/16 05:24 03/11/16 05:44 Additional Lab and Data: Lab Results 03/10/16 03/10/16 03/10/16 Range/Units 16:00 16:00 16:00 WBC 27.2 H (3.5-10.8) 10^3/ul RBC 6.08 H (4.0-5.4) 10^6/ul Hgb 15.2 (14.0-18.0) g/dl Hct 47 (42-52) % MCV 77 L (80-94) fL MCH 25 L (27-31) pg MCHC 32 (31-36) g/dl RDW 18 H (10.5-15) % Plt Count 389 (150-450) 10^3/ul MPV 9 (7.4-10.4) um3 Immature Gran % (Auto) 7 (0-9) % Neut % (Auto) 80.0 (38-83) % Lymph % (Auto) 5.5 L (25-47) % [place] % (Auto) 13.1 H (1-9) % Eos % (Auto) 0.7 (0-6) % Baso % (Auto) 0.7 (0-2) % Absolute Neuts (auto) 21.8 H (1.5-7.7) 10^3/ul Absolute Lymphs (auto) 1.5 (1.0-4.8) 10^3/ul Absolute Monos (auto) 3.6 H (0-0.8) 10^3/ul Absolute Eos (auto) 0.2 (0-0.6) 10^3/ul Absolute Basos (auto) 0.2 (0-0.2) 10^3/ul Absolute Nucleated RBC 0 10^3/ul Neutrophils % 81 (38-83) % Band Neutrophils % 3 (0-8) % Lymphocytes % 7 L (25-47) % Monocytes % 5 (0-13) % Metamyelocytes % 3 H (0-2) % Myelocytes % 1 (0-1) % Nucleated RBC % 0 Normal RBC Morphology Normal (Normal) INR (Anticoag Therapy) 1.02 (0.89-1.11) APTT 26.8 (26.0-36.3) seconds Sodium (133-145) mmol/L Potassium (3.5-5.0) mmol/L Chloride (101-111) mmol/L Carbon Dioxide (22-32) mmol/L Anion Gap (2-11) mmol/L BUN (6-24) mg/dL Creatinine (0.67-1.17) mg/dL Est GFR ( Amer) (>60) Est GFR (Non-Af Amer) (>60) BUN/Creatinine Ratio (8-20) Glucose (70-100) mg/dL Lactic Acid (0.5-2.0) mmol/L Calcium (8.6-10.3) mg/dL Total Bilirubin (0.2-1.0) mg/dL AST (13-39) U/L ALT (7-52) U/L Alkaline Phosphatase (34-104) U/L Troponin I (<0.04) ng/mL Total Protein (6.4-8.9) g/dL Albumin (3.2-5.2) g/dL Globulin (2-4) g/dL Albumin/Globulin Ratio (1-3) Procalcitonin (<0.6) ng/mL TSH (0.34-5.60) mcIU/mL Urine Color Yellow Urine Appearance Clear Urine pH 6.0 (5-9) Ur Specific [place] 1.014 (1.010-1.030) Urine Protein Negative (Negative) Urine Ketones Negative (Negative) Urine Blood Negative (Negative) Urine Nitrate Negative (Negative) Urine Bilirubin Negative (Negative) Urine Urobilinogen Negative (Negative) Ur Leukocyte Esterase Negative (Negative) Urine Glucose Negative (Negative) 03/10/16 03/10/16 03/10/16 Range/Units 16:00 16:00 16:00 WBC (3.5-10.8) 10^3/ul RBC (4.0-5.4) 10^6/ul Hgb (14.0-18.0) g/dl Hct (42-52) % MCV (80-94) fL MCH (27-31) pg MCHC (31-36) g/dl RDW (10.5-15) % Plt Count (150-450) 10^3/ul MPV (7.4-10.4) um3 Immature Gran % (Auto) (0-9) % Neut % (Auto) (38-83) % Lymph % (Auto) (25-47) % [place] % (Auto) (1-9) % Eos % (Auto) (0-6) % Baso % (Auto) (0-2) % Absolute Neuts (auto) (1.5-7.7) 10^3/ul Absolute Lymphs (auto) (1.0-4.8) 10^3/ul Absolute Monos (auto) (0-0.8) 10^3/ul Absolute Eos (auto) (0-0.6) 10^3/ul Absolute Basos (auto) (0-0.2) 10^3/ul Absolute Nucleated RBC 10^3/ul Neutrophils % (38-83) % Band Neutrophils % (0-8) % Lymphocytes % (25-47) % Monocytes % (0-13) % Metamyelocytes % (0-2) % Myelocytes % (0-1) % Nucleated RBC % Normal RBC Morphology (Normal) INR (Anticoag Therapy) (0.89-1.11) APTT (26.0-36.3) seconds Sodium 132 L (133-145) mmol/L Potassium 3.7 (3.5-5.0) mmol/L Chloride 98 L (101-111) mmol/L Carbon Dioxide 26 (22-32) mmol/L Anion Gap 8 (2-11) mmol/L BUN 21 (6-24) mg/dL Creatinine 1.09 (0.67-1.17) mg/dL Est GFR ( Amer) 83.1 (>60) Est GFR (Non-Af Amer) 64.6 (>60) BUN/Creatinine Ratio 19.3 (8-20) Glucose 91 (70-100) mg/dL Lactic Acid 1.2 (0.5-2.0) mmol/L Calcium 9.8 (8.6-10.3) mg/dL Total Bilirubin 0.70 (0.2-1.0) mg/dL AST 20 (13-39) U/L ALT 16 (7-52) U/L Alkaline Phosphatase 64 (34-104) U/L Troponin I 0.03 (<0.04) ng/mL Total Protein 7.8 (6.4-8.9) g/dL Albumin 3.9 (3.2-5.2) g/dL Globulin 3.9 (2-4) g/dL Albumin/Globulin Ratio 1.0 (1-3) Procalcitonin 0.1 (<0.6) ng/mL TSH 2.87 (0.34-5.60) mcIU/mL Urine Color Urine Appearance Urine pH (5-9) Ur Specific [place] (1.010-1.030) Urine Protein (Negative) Urine Ketones (Negative) Urine Blood (Negative) Urine Nitrate (Negative) Urine Bilirubin (Negative) Urine Urobilinogen (Negative) Ur Leukocyte Esterase (Negative) Urine Glucose (Negative) Microbiology and Other Data: Microbiology 03/11/16 00:40 Legionella Urinary Antigen - Final Urine Negative Legionella Streptococcus pneumoniae Ag Screen - Final Negative S. pneumo Antigen Assess/Plan/Problems-Billing Assessment: Mr. Chavez is an 85 yo male with a PMH of HTN, GERD, left hernia, and Elias fundoplication who presented to the ED on 03/10/16 with weakness and falls secondary to dizziness. - Patient Problems (1) Community acquired pneumonia Code(s): J18.9 - PNEUMONIA, UNSPECIFIED ORGANISM Comment: WBC trending down, procalcitonin negative, afebrile CXR shows right bronchopneumonia Continue IVF, ceftriaxone and azithromycin Urine legionella and strep pneumo antigens negative (2) Falls Comment: Unclear etiology, pt reports headache and dizzines that has increased since weaning down his prednisone Check ESR Orthostatic VS negative Echocardiogram shows normal LV function with EF 60-65%, mild AR, unable to evaluate . Discussed with Dr. Blanco - will repeat echo as limited study for evaluation of Telemetry WNL CT brain negative for acute processes Continue PT - PT recommends 1-2 additional inpatient days and work on stairs (3) Hematologic abnormality Code(s): R79.9 - ABNORMAL FINDING OF BLOOD CHEMISTRY, UNSPECIFIED Comment: I discussed the results with Dr. Moulton, who will review the smear Per hematology, suspect it may be secondary to acute illness Plan to trend CBC, check FISH BCR abl Appreciate hematology guidance and input (4) HTN (hypertension) Code(s): I10 - ESSENTIAL (PRIMARY) HYPERTENSION Comment: Normotensive, continue losartan (5) GERD (gastroesophageal reflux disease) Code(s): K21.9 - GASTRO-ESOPHAGEAL REFLUX DISEASE WITHOUT ESOPHAGITIS Comment : Stable, continue omeprazole. (6) Chronic use of steroids Code(s): [id number] - Comment: Continue prednisone at 10 mg. Unclear as to why patient taking medication; awaiting progress notes from PCP; unable to obtain until Sunday Patient states he takes prednisone for chronic muscle pain and inflammation He states his symptoms worsened when prednisone was tapered. CT brain negative for acute processes, check ESR. (7) DVT prophylaxis Comment: SQ heparin Status and Disposition: OBV to inpatient admit. Anticipate d/c in 1-2 days.
--- NOTE | 2016-03-12 14:09 | ECHO ---
Patient: KATHI MILLER [facility] Rec#: [id number] : 1930 Date: 03/12/2016 Age: 85y Height: 182.88 cm / 72.0 in Weight: 80.74 kg / 178.0 lbs Sex: M BSA: 2.03 Room#: 451 Admit Date#: 03/10/2016 Type: Inpatient Referring: Diamante Guido Reading: Dennis Blanco DO Reading: Dennis Blanco DO [employer] Service Supervisor: Nancy Hunt RDCS CC: Nathaniel Wilson MD Transthoracic Echocardiogram Indication: Resp. Abn BP: 138/66 HR: 95 Rhythm: NSR with PVCs Findings History: Admitted with right pneumonia. Dizziness,HTN,GERD. Technical Comments: The study is technically limited due to poor parasternal windows. Completed at 1250. Left Ventricle: The left ventricular chamber size is normal. Mild concentric left ventricular hypertrophy is observed. Global left ventricular wall motion and contractility are within normal limits. There is normal left ventricular systolic function. The estimated ejection fraction is 60-65%. Abnormal left ventricular diastolic function is observed. Left Atrium: The left atrium is mildly dilated. Right Ventricle: The right ventricular chamber size and systolic function are within normal limits. Right Atrium: The right atrium is slightly dilated. Aortic Valve: The aortic valve structure is not well visualized.with regards to bicupsid vs. tricupsid valve The aortic valve leaflets are mildly thickened. Mild aortic leaflet calcification is visualized. Systolic excursion of the aortic valve cusps is reduced. There is mild aortic regurgitation. The highest aortic valve velocity was obtained with the standard probe from the A5C view. Mitral Valve: The mitral valve leaflets are mildly thickened. There is a trace of mitral regurgitation. There is no evidence of mitral stenosis. Tricuspid Valve: The tricuspid valve leaflets are normal. There is trace tricuspid regurgitation. Unable to estimate the right ventricular systolic pressure. There is no tricuspid stenosis. Pulmonic Valve: The pulmonic valve appears normal. There is no evidence of pulmonic regurgitation. There is no pulmonic stenosis. Pericardium: There is no significant pericardial effusion. Aorta: The ascending aorta is not well visualized. There is no dilatation of the aortic arch. There is no dilation of the aortic root. Pulmonary Artery: The main pulmonary artery is not well visualized. Venous: The inferior vena cava is dilated. There is a greater than 50% respiratory change in the inferior vena cava dimension. Conclusions The left ventricular chamber size is normal. Mild concentric left ventricular hypertrophy is observed. There is normal left ventricular systolic function with an estimated ejection fraction of 60-65%. The left atrium is mildly dilated. There is mild aortic regurgitation. Study is non-diagnostic to evaluate for aortic stenosis Unable to estimate the right ventricular systolic pressure. Compared to prior study from 11/2014, this study is non-diagnostic to evaluate the severity of aortic stenosis. Previous study with similar LVEF had a peak velocity of 3.1 m/s (calculated mild-moderate ), this study peak velocity is 2.3 m/s with similar LVEF suggestive of non-parallel doppler alignment Measurements Name Value Normal Range RVIDd (AP) 2D 3.1 cm (0.9 - 2.6) RVDdMajor (2D) 3.5 cm (2.2 - 4.4) RAd ISD 4CH 5.2 cm (3.4 - 4.9) RA (A4C)W 3.7 cm (2.9 - 4.6) IVSd (2D) 1.2 cm (0.6 - 1) LVPWd (2D) 1.2 cm (0.6 - 1) LVIDd (2D) 4.8 cm (3.6 - 5.4) LVIDs (2D) 3.9 cm - LV FS (2D) 19 % (25 - 45) Aortic Annulus 2.2 cm (1.4 - 2.6) Ao root diameter (2D) 3.2 cm (2.1 - 3.5) Aortic arch 3.3 cm (1.8 - 3.4) Descending Ao 1 cm - LA dimension (AP) 2D 5.4 cm (2.3 - 3.8) LAd ISD 4CH 5.9 cm (2.9 - 5.3) LA ISD 4CH W 4.4 cm (2.5 - 4.5) Name Value Normal Range LA ESV SP 4CH (A/L) 54 ml - LA ESV SP 2CH (A/L) 52 ml - LA ESV BP (A/L) 53 ml - LA ESV BP (A/L) index 26.03 ml/m2 - LA ESV SP 4CH (MOD) 51 ml - LA ESV SP 2CH (MOD) 48 ml - Name Value Normal Range MV E-wave Vmax 0.8 m/sec - MV deceleration time 210 msec - MV A-wave Vmax 1 m/sec - MV E:A ratio 0.81 ratio - LV septal e' Vmax 0.1 m/sec - LV lateral e' Vmax 0.07 m/sec - LV E:e' septal ratio 8 ratio - LV E:e' lateral ratio 11.42 ratio - Name Value Normal Range AV VTI 54.3 cm - LVOT diameter 1.9 cm - LVOT Vmax 1.3 m/sec - LVOT VTI 32.1 cm - LVOT peak gradient 6.36 mmHg - LVOT mean gradient 3.17 mmHg - AR PHT 549 msec - AR peak gradient 55.33 mmHg - Name Value Normal Range TR peak gradient 36 mmHg - RAP 8 mmHg - IVC diameter 2.8 cm - Name Value Normal Range PV Vmax 0.7 m/sec - PV peak gradient 1.85 mmHg -
[2016-03-12] MEDS ORDERED: Acetaminophen TAB* 325 MG PO PRN (15:21)
[2016-03-12 16:01] LABS: Erythrocyte Sed Rate 10 mm/Hr (0-40)
[2016-03-12] MEDS: Azithromycin IV(*) 500 MG in NS 0.9% 250 ML* 250 ML IVPB SCH (21:40)
[2016-03-12] MEDS: ceFUROXime TAB(*) 250 MG PO SCH (21:46)
[2016-03-12] MEDS: Azithromycin TAB* 250 MG PO SCH (21:47)
[2016-03-13] MEDS: Heparin VIAL(*) 5000 UNITS/ML VIAL (FIVE THOUSAND) SUBCUT SCH ×2 (06:12→12:58)
[2016-03-13 06:40] LABS: Comments Flag Yes; Hematocrit 44 % (42-52); Hemoglobin 14.1 g/dl (14.0-18.0); Mean Corpuscular HGB Conc 32 g/dl (31-36); Mean Corpuscular Hemoglobin 25 pg (27-31); Mean Corpuscular Volume 78 fL (80-94); Mean Platelet Volume 9 um3 (7.4-10.4); Red Blood Count 5.59 10^6/ul (4.0-5.4); Red Cell Distribution Width 18 % (10.5-15); White Blood Count 12.5 10^3/ul (3.5-10.8)
[2016-03-13 06:41] LABS: Add Diff/Slide Review? Slide Review Added
[2016-03-13 07:19] LABS: Immature Granulocytes 6 % (0-9); Myelocytes % 4 % (0-1); Neutrophil % 65 % (38-83); RBC Morphology Normal (Normal); Reactive Lymph % 2 % (0-6)
[2016-03-13] MEDS: Omeprazole CAP* 20 MG PO SCH ×2 (10:13→15:34)
[2016-03-13] MEDS: Aspirin Low Dose CHEW TAB* 81 MG PO SCH (10:14)
[2016-03-13] MEDS: Azithromycin TAB* 250 MG PO SCH (10:15)
[2016-03-13] MEDS: ceFUROXime TAB(*) 250 MG PO SCH (10:15)
[2016-03-13] MEDS: Losartan TAB* 25 MG PO SCH (10:16)
[2016-03-13] MEDS: predniSONE TAB* 10 MG PO SCH (10:17)
[2016-03-13] MEDS: Multivitamins/Minerals TAB PO SCH (10:17)
[2016-03-13 15:11] VITALS: BP 143/78
--- NOTE | 2016-03-13 15:58 | PN ---
Subjective Date of Service: 03/13/16 Interval History: Patient seen and examined at bedside. He reports less headaches and states the acetaminophen helps. He denies minimal dizziness while here. He denies pain over the temporal arteries, scalp tenderness, jaw claudication, visual changes, fever/cough, chest pain, SOB, abd pain, n/v. He feels steadier and is hopeful for discharge. Family History: Unchanged from Admission Social History: Unchanged from Admission Past Medical History: Unchanged from Admission Objective Active Medications: Acetaminophen (Tylenol Tab*) 650 mg PO Q4H PRN PRN Reason: FEVER/PAIN Last Admin: 03/12/16 16:22 Dose: 650 mg Albuterol (Ventolin 2.5 Mg/3 Ml Neb.Zina*) 2.5 mg INH Q4H PRN PRN Reason: SOB/WHEEZING Aspirin (Aspirin Low Dose Tab*) 81 mg PO DAILY [facility] Last Admin: 03/13/16 10:14 Dose: 81 mg Azithromycin (Zithromax Tab*) 500 mg PO DAILY [facility] Stop: 03/16/16 09:01 Last Admin: 03/13/16 10:15 Dose: 500 mg Cefuroxime Axetil (Ceftin Tab(*)) 500 mg PO BID [facility] Last Admin: 03/13/16 10:15 Dose: 500 mg Heparin Sodium (Porcine) (Heparin Vial(*)) 5,000 units SUBCUT Q8HR [facility] Last Admin: 03/13/16 12:58 Dose: 5,000 units Losartan Potassium (Cozaar Tab*) 50 mg PO DAILY [facility] Last Admin: 03/13/16 10:16 Dose: 50 mg Multivitamins/Minerals (Theragran/Minerals Tab*) 1 tab PO DAILY [facility] Last Admin: 03/13/16 10:17 Dose: 1 tab Omeprazole (Prilosec Cap*) 40 mg PO BID@0730,1630 [facility] Last Admin: 03/13/16 15:34 Dose: 40 mg Prednisone (Deltasone Tab*) 10 mg PO BID [facility] Last Admin: 03/13/16 10:17 Dose: 10 mg Vital Signs 03/12/16 03/12/16 03/12/16 19:44 20:00 23:12 Temperature 98.1 F 97.7 F Pulse Rate 69 68 Respiratory 20 20 16 Rate Blood Pressure 129/51 123/68 (mmHg) O2 Sat by Pulse 96 96 94 Oximetry 03/13/16 03/13/16 03/13/16 00:36 03:41 07:33 Temperature 97.3 F 97.9 F Pulse Rate 55 56 54 Respiratory 20 16 20 Rate Blood Pressure 128/75 144/72 (mmHg) O2 Sat by Pulse 94 96 95 Oximetry 03/13/16 03/13/16 08:00 15:07 Temperature 97.7 F Pulse Rate 66 Respiratory 17 20 Rate Blood Pressure 143/78 (mmHg) O2 Sat by Pulse 94 Oximetry Oxygen Devices in Use Now: None Appearance: Older male patient, lying in bed, in NAD Eyes: PERRLA Ears/Nose/Mouth/Throat: Clear Oropharnyx, Mucous Membranes Moist Neck: NL Appearance and Movements; NL JVP Respiratory: Symmetrical Chest Expansion and Respiratory Effort, Clear to Auscultation - RLL rales Cardiovascular: NL Sounds; No Murmurs; No JVD, RRR - 1-2/6 systolic murmur Abdominal: NL Sounds; No Tenderness; No Distention Extremities: No Edema Skin: No Rash or Ulcers Neurological: Alert and Oriented x 3, NL Gait Lines/Tubes/Other Access: Clean, Dry and Intact Peripheral IV Nutrition: Taking PO's Result Diagrams: 03/13/16 04:57 03/11/16 05:44 Additional Lab and Data: Lab Results 03/10/16 03/10/16 03/10/16 Range/Units 16:00 16:00 16:00 WBC 27.2 H (3.5-10.8) 10^3/ul RBC 6.08 H (4.0-5.4) 10^6/ul Hgb 15.2 (14.0-18.0) g/dl Hct 47 (42-52) % MCV 77 L (80-94) fL MCH 25 L (27-31) pg MCHC 32 (31-36) g/dl RDW 18 H (10.5-15) % Plt Count 389 (150-450) 10^3/ul MPV 9 (7.4-10.4) um3 Immature Gran % (Auto) 7 (0-9) % Neut % (Auto) 80.0 (38-83) % Lymph % (Auto) 5.5 L (25-47) % [place] % (Auto) 13.1 H (1-9) % Eos % (Auto) 0.7 (0-6) % Baso % (Auto) 0.7 (0-2) % Absolute Neuts (auto) 21.8 H (1.5-7.7) 10^3/ul Absolute Lymphs (auto) 1.5 (1.0-4.8) 10^3/ul Absolute Monos (auto) 3.6 H (0-0.8) 10^3/ul Absolute Eos (auto) 0.2 (0-0.6) 10^3/ul Absolute Basos (auto) 0.2 (0-0.2) 10^3/ul Absolute Nucleated RBC 0 10^3/ul Neutrophils % 81 (38-83) % Band Neutrophils % 3 (0-8) % Lymphocytes % 7 L (25-47) % Monocytes % 5 (0-13) % Metamyelocytes % 3 H (0-2) % Myelocytes % 1 (0-1) % Nucleated RBC % 0 Normal RBC Morphology Normal (Normal) INR (Anticoag Therapy) 1.02 (0.89-1.11) APTT 26.8 (26.0-36.3) seconds Sodium (133-145) mmol/L Potassium (3.5-5.0) mmol/L Chloride (101-111) mmol/L Carbon Dioxide (22-32) mmol/L Anion Gap (2-11) mmol/L BUN (6-24) mg/dL Creatinine (0.67-1.17) mg/dL Est GFR ( Amer) (>60) Est GFR (Non-Af Amer) (>60) BUN/Creatinine Ratio (8-20) Glucose (70-100) mg/dL Lactic Acid (0.5-2.0) mmol/L Calcium (8.6-10.3) mg/dL Total Bilirubin (0.2-1.0) mg/dL AST (13-39) U/L ALT (7-52) U/L Alkaline Phosphatase (34-104) U/L Troponin I (<0.04) ng/mL Total Protein (6.4-8.9) g/dL Albumin (3.2-5.2) g/dL Globulin (2-4) g/dL Albumin/Globulin Ratio (1-3) Procalcitonin (<0.6) ng/mL TSH (0.34-5.60) mcIU/mL Urine Color Yellow Urine Appearance Clear Urine pH 6.0 (5-9) Ur Specific [place] 1.014 (1.010-1.030) Urine Protein Negative (Negative) Urine Ketones Negative (Negative) Urine Blood Negative (Negative) Urine Nitrate Negative (Negative) Urine Bilirubin Negative (Negative) Urine Urobilinogen Negative (Negative) Ur Leukocyte Esterase Negative (Negative) Urine Glucose Negative (Negative) 03/10/16 03/10/16 03/10/16 Range/Units 16:00 16:00 16:00 WBC (3.5-10.8) 10^3/ul RBC (4.0-5.4) 10^6/ul Hgb (14.0-18.0) g/dl Hct (42-52) % MCV (80-94) fL MCH (27-31) pg MCHC (31-36) g/dl RDW (10.5-15) % Plt Count (150-450) 10^3/ul MPV (7.4-10.4) um3 Immature Gran % (Auto) (0-9) % Neut % (Auto) (38-83) % Lymph % (Auto) (25-47) % [place] % (Auto) (1-9) % Eos % (Auto) (0-6) % Baso % (Auto) (0-2) % Absolute Neuts (auto) (1.5-7.7) 10^3/ul Absolute Lymphs (auto) (1.0-4.8) 10^3/ul Absolute Monos (auto) (0-0.8) 10^3/ul Absolute Eos (auto) (0-0.6) 10^3/ul Absolute Basos (auto) (0-0.2) 10^3/ul Absolute Nucleated RBC 10^3/ul Neutrophils % (38-83) % Band Neutrophils % (0-8) % Lymphocytes % (25-47) % Monocytes % (0-13) % Metamyelocytes % (0-2) % Myelocytes % (0-1) % Nucleated RBC % Normal RBC Morphology (Normal) INR (Anticoag Therapy) (0.89-1.11) APTT (26.0-36.3) seconds Sodium 132 L (133-145) mmol/L Potassium 3.7 (3.5-5.0) mmol/L Chloride 98 L (101-111) mmol/L Carbon Dioxide 26 (22-32) mmol/L Anion Gap 8 (2-11) mmol/L BUN 21 (6-24) mg/dL Creatinine 1.09 (0.67-1.17) mg/dL Est GFR ( Amer) 83.1 (>60) Est GFR (Non-Af Amer) 64.6 (>60) BUN/Creatinine Ratio 19.3 (8-20) Glucose 91 (70-100) mg/dL Lactic Acid 1.2 (0.5-2.0) mmol/L Calcium 9.8 (8.6-10.3) mg/dL Total Bilirubin 0.70 (0.2-1.0) mg/dL AST 20 (13-39) U/L ALT 16 (7-52) U/L Alkaline Phosphatase 64 (34-104) U/L Troponin I 0.03 (<0.04) ng/mL Total Protein 7.8 (6.4-8.9) g/dL Albumin 3.9 (3.2-5.2) g/dL Globulin 3.9 (2-4) g/dL Albumin/Globulin Ratio 1.0 (1-3) Procalcitonin 0.1 (<0.6) ng/mL TSH 2.87 (0.34-5.60) mcIU/mL Urine Color Urine Appearance Urine pH (5-9) Ur Specific [place] (1.010-1.030) Urine Protein (Negative) Urine Ketones (Negative) Urine Blood (Negative) Urine Nitrate (Negative) Urine Bilirubin (Negative) Urine Urobilinogen (Negative) Ur Leukocyte Esterase (Negative) Urine Glucose (Negative) Microbiology and Other Data: Microbiology 03/11/16 00:40 Legionella Urinary Antigen - Final Urine Negative Legionella Streptococcus pneumoniae Ag Screen - Final Negative S. pneumo Antigen Assess/Plan/Problems-Billing Assessment: Mr. Chavez is an 85 yo male with a PMH of HTN, GERD, left hernia, and Elias fundoplication who presented to the ED on 03/10/16 with weakness and falls secondary to dizziness. - Patient Problems (1) Community acquired pneumonia Code(s): J18.9 - PNEUMONIA, UNSPECIFIED ORGANISM Comment: WBC trending down, procalcitonin negative, afebrile CXR shows right bronchopneumonia Switch to PO ceftin, azithromycin Urine legionella and strep pneumo antigens negative (2) Falls Comment: Unclear etiology, pt reports headache and dizziness that has increased since weaning down his prednisone I spoke with Dr. Wilson, who states she was treating him with prednisone for suspected PMR Pt denies jaw claudication, scalp tenderness, temporal artery pain ESR, orthostatic VS negative Echocardiogram shows normal LV function with EF 60-65%, mild AR, unable to evaluate . Repeat echo show mild aortic stenosis. Telemetry WNL CT brain negative for acute processes (3) Hematologic abnormality Code(s): R79.9 - ABNORMAL FINDING OF BLOOD CHEMISTRY, UNSPECIFIED Comment: Suspect it may be secondary to acute illness Improving CBC, FISH BCR abl pending Recommend outpatient CBC on Sunday to monitor for resolution of bandemia (4) HTN (hypertension) Code(s): I10 - ESSENTIAL (PRIMARY) HYPERTENSION Comment: Normotensive, continue losartan (5) GERD (gastroesophageal reflux disease) Code(s): K21.9 - GASTRO-ESOPHAGEAL REFLUX DISEASE WITHOUT ESOPHAGITIS Comment : Stable, continue omeprazole. (6) Chronic use of steroids Code(s): LXU5729 - Comment: Continue prednisone at 10 mg. Patient being treated for suspected PMR Patient states he takes prednisone for chronic muscle pain and inflammation CT brain negative for acute processes, ESR WNL. (7) DVT prophylaxis Comment: SQ heparin Status and Disposition: Inpatient admission. D/c to home.
--- NOTE | 2016-03-13 16:09 | ECHO ---
Patient: KATHI MILLER [facility] Rec#: [id number] : 1930 Date: 03/13/2016 Age: 85y Height: 183 cm / 72.0 in Weight: 80.7 kg / 177.9 lbs Sex: M BSA: 2.03 Room#: [facility] Admit Date#: 03/10/2016 Type: Inpatient Referring: Yisel Joseph Reading: Isidro Guerrero MD Sewer Digger: Reynaldo Gao RDCS Transthoracic Echocardiogram Indication: BP: 138/66 HR: 79 Rhythm: NSR Findings History: PNEUMONIA Technical Comments: The study quality is fair. Aortic Valve: The aortic valve is trileaflet. There is trace to mild aortic regurgitation. There is mild aortic stenosis. The mean gradient of the aortic valve is 17 mmHg. The peak instantaneous gradient of the aortic valve is 29 mmHg. The aortic valve area, by peak velocities, is calculated at 1.4 cm2. Conclusions The aortic valve is trileaflet. There is trace to mild aortic regurgitation. There is mild aortic stenosis. The mean gradient of the aortic valve is 17 mmHg. Peak velocity 2.04 m/sec Measurements Name Value Normal Range AV Vmax 2.7 m/sec - AV VTI 61 cm - AV peak gradient 29 mmHg - AV mean gradient 17 mmHg - LVOT diameter 2 cm - LVOT Vmax 0.31 m/sec - CRIS (continuity Vmax) 1.4 cm2 - CRIS (continuity VTI) 1.4 cm2 -
--- NOTE | 2016-03-14 13:09 | DS ---
MEDICINE DISCHARGE SUMMARY: DATE OF ADMISSION: 03/10/16 DATE OF DISCHARGE: 03/13/16 PRIMARY CARE PHYSICIAN: Dr. Nathaniel Wilson PROVIDER: Arden Buckley NP ATTENDING PHYSICIAN: Matti Liu MD *(as dictated by Arden Buckley NP) PRIMARY DISCHARGE DIAGNOSES: 1. Community-acquired pneumonia. 2. Dizziness and fall. SECONDARY DISCHARGE DIAGNOSES: 1. Hypertension. 2. Gastroesophageal reflux disease. 3. History of left hernia. 4. History of laparoscopic Elias fundoplication in 2000. 5. History of hip ORIF in 2006. 6. Concern of polymyalgia rheumatica, on prednisone therapy, now being tapered by PCP. MEDICATIONS AT DISCHARGE: 1. Calcium with vitamin D supplement 1 tab daily. 2. Aspirin 81 mg daily. 3. Prednisone 10 mg b.i.d. 4. Multivitamin 1 tab daily. 5. Omeprazole 40 mg b.i.d. 6. Hyzaar 50/12.5 mg 1 tab daily. 7. Ceftin 500 mg b.i.d. This is a new medication. 8. Azithromycin 500 mg daily. This is a new medication. 9. Cefuroxime and azithromycin prescribed to finish a 7-day course of antibiotics. DIAGNOSTIC TESTING DONE DURING THIS ADMISSION: Chest x-ray on 03/10/16 shows a constellation of findings suspicious for bronchial pneumonia. CT brain on 03/10 shows no evidence for gross acute infarcts, mass effects, or hemorrhage. Findings consistent with mild chronic small vessel ischemic changes. Transthoracic echocardiogram. Conclusions: The left ventricular chamber size is normal. Mild concentric left ventricular hypertrophy is observed. There is normal left ventricular systolic function with an estimated ejection fraction of 60% to 65%. The left atrium is mildly dilated. There is mild aortic regurgitation. Study is nondiagnostic to evaluate for aortic stenosis. Unable to estimate the right ventricular systolic pressure. This was compared to prior studies from November 2014 and the study is nondiagnostic to evaluate the severity of the aortic stenosis. A repeat echo was done to focus on the aortic valve. Conclusions: The aortic valve is trileaflet. There is [id number] aortic regurgitation. There is mild aortic stenosis. The mean gradient of the aortic valve is 17 mmHg. Peak velocity is 2.04 m/sec. HOSPITAL COURSE OF STAY: For full details, please refer to the H and P provided by Diamante Guido NP, on 03/10/16. In summary, Mr. Chavez is an 85- year-old man who presented to the ED with reports of falls and weakness. The patient was evaluated in the outpatient setting by his PCP and was sent to the ED for further evaluation. As a suspicion for pneumonia, the patient had a chest x-ray that was suspicious for bronchial pneumonia and was noted to be slightly tachycardic. He also had an elevated white blood cell count of 27, 000. It was noted on admission that the patient was on prednisone, but he was unable to tell the admitting provider as to why he was on prednisone. Later on , he states that it was for generalized aches and pains and this did resolve with prednisone. He is currently being tapered off of his prednisone. Per information, he continued to express concerns for headaches and dizziness. He had dizziness at home that resulted in falls, although he could find no pattern. He said it will happen when he is sitting or when he was walking and does feel dizzy. Here in the hospital, the patient had Physical Therapy working with him and the patient was advised to continue to work with the PT. He did improve over his course of stay. He was able to get on the stairs and safely ambulate. The patient declined home services at this time, but I do recommend that he continue to follow up with his PCP as he may benefit from an outpatient or home physical therapy in the future. In terms of his headaches and dizziness, the patient states that the headaches are mostly frontal and inconsistent in timing and severity. They did resolve with Tylenol. He denied any scalp tenderness, temporal pain, jaw claudication, hearing changes, or visual changes. The patient states the headaches often happen in the morning. The patient had no falls or episodes of dizziness here in the hospital of concern. Prior to discharge, he was able to ambulate safely in his room and was seen by the nursing and ancillary staff. He had no increased oxygen requirements and has been afebrile. His while blood cell count has improved during the course of his stay; however, the patient does still have some bandemia. I did recommend that he have a followup CBC on 03/17/16, prior to his followup appointment with his PCP in order to monitor the resolution of the bandemia and his white blood cell count as well as the patient 's ESR is also negative when checked. At the time discharge, the patient is alert, oriented. His vital signs are stable with most recent vital signs posted with a temperature of 97.7, heart rate 66, respiratory rate 20, blood pressure 143/78, and O2 saturation 95% on room air. The patient was without complaint and felt well and safe enough to go home. CONCERNS AT DISCHARGE: The patient will be discharged to home on 03/13/16 with a plan to followup with his PCP next week on 03/21/16. DIET: Heart-healthy diet. ACTIVITY: As tolerated. The patient is advised to move slowly and carefully. CONDITION: Improved, stable. DISPOSITION: To home. TIME SPENT: Time spent on this discharge was approximately 45 minutes. Again, this is only a brief summary of the patient's hospital course of stay. For full details, please refer to the full medical record. If you have any further questions, please feel free to contact me at . ARDEN BUCKLEY NP CC: Dr. Nathaniel Wilson* [id number]/CPS #: [id number] LAMIN
[2016-03-16 13:22] LABS: BCR/abl (FISH) Referral Reason high white count; BCR/abl (FISH) Result Summary Normal; BCR/abl (FISH) Specimen Blood
== END 2016-03-13 17:50 | disposition home or self-care (01) | DRG 195 ==
LOC: ED 13:43 → MEDTELE 18:23 → OBSVTOIN 03-12 12:00
PROVIDERS: ADMIT Hospitalist; ATTEND Hospitalist
DX: J18.8 Other pneumonia, unspecified organism (principal); K21.9 Gastro-esophageal reflux disease without esophagitis; R42 Dizziness and giddiness; R79.9 Abnormal finding of blood chemistry, unspecified; W18.30XA Fall on same level, unspecified, initial encounter; Y92.009 Unspecified place in unspecified non-institutional (private) residence as the place of occurrence of the external cause; Z79.82 Long term (current) use of aspirin; Z79.52 Long term (current) use of systemic steroids; Z87.891 Personal history of nicotine dependence; Z79.899 Other long term (current) drug therapy; Z81.1 Family history of alcohol abuse and dependence; Z81.2 Family history of tobacco abuse and dependence
CPT/HCPCS: 36415; 70450; 71010; 80048; 80053; 81003; 83605; 84145; 84443; 84484; 85025; 85610; 85652; 85730; 87040; 87899; 88271; 88275; 93005; 93306; 93308; 94760; A9270-GY; G0378; G8978-GP-CJ; G8979-GP-CI; J0456; J0696; J1644; J2543; J7512

== ENCOUNTER 2016-07-28 06:48 | Inpatient (IN) | payer MEDICARE ==
[2016-07-28 08:07] LABS: Hematocrit 48 % (42-52); Hemoglobin 15.4 g/dl (14.0-18.0); Mean Corpuscular HGB Conc 32 g/dl (31-36); Mean Corpuscular Hemoglobin 23 pg (27-31); Mean Corpuscular Volume 73 fL (80-94); Mean Platelet Volume 8 um3 (7.4-10.4); Red Blood Count 6.63 10^6/ul (4.0-5.4); Red Cell Distribution Width 17 % (10.5-15); White Blood Count 14.6 10^3/ul (3.5-10.8)
[2016-07-28 08:10] LABS: Add Diff/Slide Review? Slide Review Added; Comments Flag Yes
[2016-07-28 08:18] LABS: Albumin 3.8 g/dL (3.2-5.2); BUN/Creatinine Ratio 12.1 (8-20); C Reactive Protein 56.34 mg/L (< 5.00); Calcium 9.5 mg/dL (8.6-10.3); EGFR African American 77.1 (>60); Globulin 4.6 g/dL (2-4); Magnesium 1.8 mg/dL (1.9-2.7); Potassium 3.9 mmol/L (3.5-5.0); Total Bilirubin 0.9 mg/dL (0.2-1.0); Total Protein 8.4 g/dL (6.4-8.9)
[2016-07-28 08:21] LABS: Troponin I 0.01 ng/mL (<0.04)
--- NOTE | 2016-07-28 08:28 | RAD ---
HISTORY: Weakness COMPARISONS: March 10, 2016 TECHNIQUE: Multiple contiguous axial CT scans were obtained of the head without intravenous contrast. FINDINGS: HEMORRHAGE/INFARCT: There is no hemorrhage or acute infarct. MASSES/SHIFT: There is no mass or shift. EXTRA-AXIAL SPACES: There are no extra-axial fluid collections. SULCI AND VENTRICLES: The sulci and ventricles are normal in size and position for the patient's stated age. CEREBRUM: There is hypoattenuation of the periventricular and subcortical white matter. BRAINSTEM: There are no focal parenchymal abnormalities. CEREBELLUM: There are no focal parenchymal abnormalities. VESSELS: The vessels are grossly normal. PARANASAL SINUSES: The paranasal sinuses are clear. ORBITS: The orbits are unremarkable. BONES AND SOFT TISSUE: No bone or soft tissue abnormalities are noted. OTHER: None IMPRESSION: NO ACUTE INTRACRANIAL PATHOLOGY. CHRONIC SMALL VESSEL ISCHEMIC CHANGES.
--- NOTE | 2016-07-28 08:45 | RAD ---
INDICATION: Weakness COMPARISON: Similar chest x-ray April 11, 2016 TECHNIQUE: PA and lateral views of the chest were obtained. FINDINGS: Similar the previous chest x-ray there is a mild degree of cardiomegaly. There is coarse calcification overlying the arch of the aorta. The pulmonary vasculature is slightly indistinct relative to the previous chest x-ray. There is density overlying the lateral most aspect of the left lung base. Visualized bones are normal for the patient's age. There is no radiographic evidence of free air beneath the diaphragm IMPRESSION: THERE IS POSSIBLY A SMALL AMOUNT OF ATELECTASIS AT THE LATERAL LEFT LUNG BASE BUT NO DEFINITE ACUTE CARDIOPULMONARY ABNORMALITIES.
[2016-07-28 09:18] LABS: TSH (Thyroid Stimulating Horm) 1.83 mcIU/mL (0.34-5.60)
[2016-07-28] MEDS ORDERED: NS 0.9% 1000 ML* 1,000 ML IV ONE ×2 (10:52→11:44)
[2016-07-28 11:37] LABS: Urine Bacteria Absent (Absent); Urine Bilirubin Negative (Negative); Urine Glucose Negative (Negative); Urine Nitrite Negative (Negative)
[2016-07-28] MEDS ORDERED: NS 0.9% 1000 ML* 1,000 ML IV SCH (11:45)
[2016-07-28] MEDS ORDERED: Magnesium Sulfate 2 GM IV* 2 GM/50 ML BAG IVPB ONE (11:53)
--- NOTE | 2016-07-28 14:42 | HP ---
ATTENDING PHYSICIAN'S ADDENDUM NOW INCLUDED ON THIS REPORT CC: Dr. Wilson * HISTORY AND PHYSICAL: DATE OF ADMISSION: 07/28/16 PRIMARY CARE PROVIDER: Dr. Wilson. ATTENDING PHYSICIAN: Dr. Elissa Sadler* (report being dictated by Dung Glasgow NP) CHIEF COMPLAINT: Weakness. HISTORY OF PRESENT ILLNESS: Mr. Chavez is an 86-year-old male patient. 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 By the time he got off the tractor, he felt dizzy, weak. He made it to home, but throughout the night, he was having difficulty. He was so weak that he tried getting up to go to the bathroom but he could not make it and actually lost control of his bowels in the hallway. He denied having any chest pain or shortness of breath. He does state that he has a headache. He feels like he is stuffed up. He states he had a fever this morning. He was in touch with his primary. They were concerned because of the weakness and he came into the hospital. He denied having any chest pain or any shortness of breath. He states he did not have any episode of syncope. He states he felt nauseous yesterday, but no vomiting or diarrhea, and he also stated that he did not have any change in his medications. He states to his knowledge he thinks he drank enough fluids yesterday. His was concerned because he was acting very similar to his previous episode of pneumonia earlier this year, so they came into the hospital. PAST MEDICAL HISTORY: Significant for: 1. Hypertension. 2. GERD. 3. Hiatal hernia. 4. Question of PMR, although he states he is not currently taking anymore steroids. PAST SURGICAL HISTORY: 1. He has had a hip ORIF. 2. He has had a laparoscopic Elias fundoplication. 3. He has had a hernia repair. HOME MEDICATIONS: Include: 1. Omeprazole 40 mg p.o. b.i.d. 2. Multivitamin 1 tablet daily. 3. Losartan/hydrochlorothiazide 1 tablet p.o. daily. 4. Calcium with vitamin D 1 tablet p.o. daily. 5. Aspirin 81 mg daily. ALLERGIES TO MEDICATIONS: No known drug allergies. FAMILY HISTORY: His mother had a history of alcohol and father had a history of brain aneurysm. SOCIAL HISTORY: He is a former smoker. He does not drink alcohol. Surrogate decision maker is his . REVIEW OF SYSTEMS: There is no documented fever here. He does admit to having one at home. He denied having any significant weight change. There was no double vision. He denies having any ear discharge. He denied having any rhinorrhea. No sore throat. No thyroid enlargement. Denied having any chest pain. There was no orthopnea. No current dyspnea. There was no abdominal pain. There was nausea, but no vomiting. No dysuria. No frequency. There was no loss of consciousness. No seizures. No pruritus and no skin ulcerations. Review of 14 systems completed, all others negative. PHYSICAL EXAMINATION GENERAL: At this time, Mr. Chavez is an 86-year-old male patient who appears to be well nourished, well developed. He does not appear to be in any acute distress. VITAL SIGNS: Blood pressure 133/77, pulse 74, respirations 20, O2 sat 99%, and temperature 98.1. HEENT: Head is atraumatic, normocephalic. Eyes, EOMs are intact. Sclerae anicteric and not pale. Throat, oral mucosa appears to be dry. No oropharyngeal erythema. NECK: Supple. LUNGS: Clear to auscultation bilaterally. He was diminished in the bases. No wheezes, rales, or rhonchi. HEART: Heart sounds S1 and S2. Regular rate and rhythm. No murmurs, rubs, or gallops were appreciated. ABDOMEN: Soft. It was flat, nontender. Bowel sounds were present. EXTREMITIES: Pulses were 2+ throughout. He was able to move all 4 extremities , 5/5 strength. SKIN: Intact. NEUROLOGIC: He is awake. He is alert. He is oriented x3. His tongue was midline. Lead Trainer were equal. No gross focal deficits. LABORATORY DATA: Labs today revealed a WBC of 14.6, RBC of 6.63, hemoglobin of 15.4, hematocrit of 48, platelet count of 419. Sodium 127, potassium 3.9, chloride 95, bicarb of 25, BUN 14, creatinine 1.16, glucose 106, lactate 0.8, calcium 9.5, mag 1.8, total bili 0.9. AST 20, ALT 12, alk phos 104, CK 68, troponin 0.01, albumin of 3.8. Urine showed 1+ blood, 1+ rbc. He had a chest x-ray obtained today, Radiology read as possibility of small amount of atelectasis in the lateral left lung base but no definite or acute cardiopulmonary abnormalities. He had an EKG, which showed a normal sinus rhythm with a rate of 61. No ST elevations or Q-wave inversions. He had a brain CT obtained today as well, which showed no acute intracranial pathology, chronic small vessel ischemic changes. Old medical records were reviewed. ASSESSMENT AND PLAN: Mr. Chavez is an 86-year-old male patient coming into the ER today with complaints of having weakness. On evaluation, there was atelectasis noted on the left lateral lung field on chest x-ray and there was concern because of the weakness and elevated white count. We were asked to evaluate for admission. He will be admitted under observation status. 1. At this point, I am concerned that he may have underlying pneumonia again. The said that he presented similarly this way in the past and there is questionable atelectasis. He has been very weak. He had a fever reported at home. I think to be on the safe side I am going to put him on azithromycin and Rocephin. I will check legionella and Strep pneumo antigens. I will go ahead and continue to follow him closely. I have ordered a PT evaluation. We will hydrate him. 2. Hyponatremia, probably secondary to the hydrochlorothiazide that is in his blood pressure medication. I will go ahead and hydrate him and repeat his BMP in the morning. If it is still low, we may need to send off further labs. 3. Hypertension. Continue his losartan. 4. Gastroesophageal reflux disease and hiatal hernia. Continue PPI therapy. 5. History of polymyalgia rheumatica. The patient states he is no longer taking any prednisone. We will hold off on this. 6. DVT prophylaxis: He is high risk. He will be placed on heparin subcu. 7. Code status: Full code. 8. Fluid, electrolyte, nutrition: He can have a regular diet. TIME SPENT: Time spent on the admission is approximately 60 minutes, greater than half the time spent [id number] with the patient obtaining my history and physical, other half time spent going over the plan of care with the patient and implementing the plan of care. I discussed the plan of care with my attending, Dr. Sadler; she is in agreement. 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 Today he presents with generalized weakness. His C-reactive protein is slightly elevated at 56. There is a question of atelectasis was noted on his x-ray. The patient is also hyponatremic with mild leukocytosis. He is going to be admitted with a working diagnosis of possible pneumonia. He is going to be placed on intravenous hydration. I suspect that at least part of patient's presentation is to dehydration and this and age of 86 , he probably should not be working in hot weather for several hours without stopping, without air conditioning. For further details of the patient's presentation and plan, please see history and physical dictated by Dung Glasgow on 07/28/16, with which I agree. ELISSA SADLER MD [id number]/CPS #: [id number]/[id number] #: [id number] LAMIN
--- NOTE | 2016-07-28 14:51 | HP ---
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 Today he presents with generalized weakness. His C-reactive protein is slightly elevated at 56. There is a question of atelectasis was noted on his x-ray. The patient is also hyponatremic with mild leukocytosis. He is going to be admitted with a working diagnosis of possible pneumonia. He is going to be placed on intravenous hydration. I suspect that at least part of patient's presentation is to dehydration and this and age of 86 , he probably should not be working in hot weather for several hours without stopping, without air conditioning. For further details of the patient's presentation and plan, please see history and physical dictated by Dung Glasgow on 07/28/16, with which I agree. [id number]/CPS #: [id number] MTDD
[2016-07-28] MEDS: Heparin VIAL(*) 5000 UNITS/ML VIAL (FIVE THOUSAND) SUBCUT SCH ×2 (15:00→22:32)
[2016-07-28] MEDS: Ondansetron INJ* 2 MG/ML VIAL IV PRN (15:00)
[2016-07-28] MEDS: Acetaminophen TAB* 325 MG PO PRN (15:00)
[2016-07-28] MEDS: cefTRIAXone VIAL(*) 1,000 MG in NS 0.9% 50 ML* 50 ML IVPB SCH (15:53)
[2016-07-28] MEDS: Azithromycin IV(*) 500 MG in NS 0.9% 250 ML* 250 ML IVPB SCH (16:18)
[2016-07-28] MEDS: Omeprazole CAP* 20 MG PO SCH (17:33)
--- NOTE | 2016-07-28 18:47 | ED ---
Homer Flores Auryana, scribed for Evangelista Toledo MD on 07/28/16 at 0755 . Neurological HPI - HPI Summary HPI Summary: 86 year old male presents with dizziness and general weakness starting yesterday afternoon. states that he has felt unsteady for the last day. Patient also reports blurred vision but denies any MORRISON, cough, CP, SOB, or palpitations. Patient reports fever but none on arrival vitals. Per - patient has had 1 episode prior - reports that he ended up here after this episode. reports that he is at baseline. - History of Current Complaint Chief Complaint: EDWeakness Stated Complaint: GENERAL ILLNESS Time Seen by Provider: 07/28/16 07:42 Last Known Well Date: 07/27/16 Hx Obtained From: Patient Onset/Duration: Gradual Onset, Started days ago - yesterday afternoon Timing: Constant Onset Severity: Mild Current Severity: Mild Pain Intensity: 0 Pain Scale Used: 0-10 Numeric Character: Dizzy, Visual Changes - blurred vision, Other: - general weakness Associated Signs and Symptoms: Positive: Unsteady Gait - per , Visual Changes - blurred vision, Weakness - general, Dizziness. Negative: Headache, Fever - patient reports fever but none on arrival, Chest Pain, Shortness of Breath, Palpitations Similar Episode/Dx as: YES SEE HPI - Additional Pertinent History Primary Care Physician: [id number] - Allergy/Home Medications Allergies/Adverse Reactions: Allergies Allergy/AdvReac Type Severity Reaction Status Date / Time No Known Allergies Allergy Verified 01/09/12 08:16 Home Medications: Home Medications Aspirin Low Dose CHEW TAB* [Aspirin Low Dose TAB*] 81 mg PO DAILY 07/28/16 [ History Confirmed 07/28/16] Losartan Potassium & Hydrochlo [Hyzaar 50/12.5 mg] 1 tab PO DAILY 07/28/16 [ History Confirmed 07/28/16] PMH/Surg Hx/FS Hx/Imm Hx Cardiovascular History: Reports: Hx Hypertension - TAKING MEDICATION GI History: Reports: Hx Gastroesophageal Reflux Disease - HAD SURGERY NOT SURE WHAT WAS DONE. ON NEXIUM. Musculoskeletal History: Reports: Hx Arthritis Sensory History: Reports: Hx Contacts or Glasses - GLASSES, Hx Hearing Aid Opthamlomology History: Reports: Hx Contacts or Glasses - GLASSES - Surgical History Surgery Procedure, Year, and Place: [address] [facility] [place] [address] [facility] [place] RIGHT INGUINAL HERNAI REPAIR Hx Anesthesia Reactions: No Infectious Disease History: No Infectious Disease History: Denies: Traveled Outside the [place] in Last 30 Days - Family History Known Family History: Positive: Other - aneurysm - Social History Occupation: Employed Full-time - Little Lives: With Family - Alcohol Use: None Hx Substance Use: No Substance Use Type: Reports: None Smoking Status (MU): Former Smoker Review of Systems Positive: Other - general weakness, dizziness. Negative: Fever Positive: Blurred Vision ENT: Negative Cardiovascular: Negative Negative: Palpitations, Chest Pain Respiratory: Negative Negative: Shortness Of Breath Gastrointestinal: Negative Genitourinary: Negative Musculoskeletal: Negative Skin: Negative Negative: Headache Psychological: Normal All Other Systems Reviewed And Are Negative: Yes Physical Exam - Summary Physical Exam Summary: VITAL SIGNS: Reviewed. GENERAL: Patient is a well-developed, nourished, elderly male who is lying comfortable in the stretcher. Patient is not in any acute respiratory distress. HEAD AND FACE: No signs of trauma. ~No ecchymosis, hematomas or skull depressions. No sinus tenderness. EYES: PERRLA, EOMI x 2, No injected conjunctiva, no nystagmus. No photophobia. EARS: Hearing grossly intact. Ear canals and tympanic membranes are within normal limits. MOUTH: Oropharynx within normal limits. NECK: Supple, trachea is midline, no adenopathy, no JVD, no carotid bruit, no c- spine tenderness, neck with full ROM. No meningeal signs, no Kernig's or brudzinskis signs. CHEST: Symmetric, no tenderness at palpation LUNGS: Clear to auscultation bilaterally. No wheezing or crackles. CVS: Regular rate and rhythm, S1 and S2 present, no murmurs or gallops appreciated. ABDOMEN: Soft, non-tender. No signs of distention. No rebound no guarding, and no masses palpated. Bowel sounds are normal. EXTREMITIES: FROM in all major joints, no edema, no cyanosis or clubbing. NEURO: Alert and oriented x 3. No acute neurological deficits. Speech is normal and follows commands. SKIN: Dry and warm Triage Information Reviewed: Yes Vital Signs On Initial Exam: Initial Vitals Temp Pulse Resp BP Pulse Ox 97.7 F 68 20 124/54 96 07/28/16 06:51 07/28/16 06:51 07/28/16 06:51 07/28/16 06:51 07/28/16 06:51 Vital Signs Reviewed: Yes - Dierks Coma Scale Coma Scale Total: 15 Diagnostics - Vital Signs Vital Signs Temp Pulse Resp BP Pulse Ox 07/28/16 06:53 97.7 F 68 20 124/54 96 07/28/16 06:51 97.7 F 68 20 124/54 96 - Laboratory Lab Results: Lab Results 07/28/16 07/28/16 07/28/16 Range/Units 07:55 07:55 07:55 WBC 14.6 H (3.5-10.8) 10^3/ul RBC 6.63 H (4.0-5.4) 10^6/ul Hgb 15.4 (14.0-18.0) g/dl Hct 48 (42-52) % MCV 73 L (80-94) fL MCH 23 L (27-31) pg MCHC 32 (31-36) g/dl RDW 17 H (10.5-15) % Plt Count 419 (150-450) 10^3/ul MPV 8 (7.4-10.4) um3 Neut % (Auto) 77.4 (38-83) % Lymph % (Auto) 3.7 L (25-47) % Dougherty % (Auto) 16.5 H (1-9) % Eos % (Auto) 1.5 (0-6) % Baso % (Auto) 0.9 (0-2) % Absolute Neuts (auto) 11.3 H (1.5-7.7) 10^3/ul Absolute Lymphs (auto) 0.5 L (1.0-4.8) 10^3/ul Absolute Monos (auto) 2.4 H (0-0.8) 10^3/ul Absolute Eos (auto) 0.2 (0-0.6) 10^3/ul Absolute Basos (auto) 0.1 (0-0.2) 10^3/ul Absolute Nucleated RBC 0.01 10^3/ul Nucleated RBC % 0.1 Sodium 127 L (133-145) mmol/L Potassium 3.9 (3.5-5.0) mmol/L Chloride 95 L (101-111) mmol/L Carbon Dioxide 25 (22-32) mmol/L Anion Gap 7 (2-11) mmol/L BUN 14 (6-24) mg/dL Creatinine 1.16 (0.67-1.17) mg/dL Est GFR ( Amer) 77.1 (>60) Est GFR (Non-Af Amer) 60.0 (>60) BUN/Creatinine Ratio 12.1 (8-20) Glucose 106 H (70-100) mg/dL Lactic Acid 0.8 (0.5-2.0) mmol/L Calcium 9.5 (8.6-10.3) mg/dL Magnesium 1.8 L (1.9-2.7) mg/dL Total Bilirubin 0.90 (0.2-1.0) mg/dL AST 22 (13-39) U/L ALT 12 (7-52) U/L Alkaline Phosphatase 104 (34-104) U/L Total Creatine Kinase 68 (10-223) U/L Troponin I 0.01 (<0.04) ng/mL C-Reactive Protein 56.34 H (< 5.00) mg/L B-Natriuretic Peptide ( - 100) pg/mL Total Protein 8.4 (6.4-8.9) g/dL Albumin 3.8 (3.2-5.2) g/dL Globulin 4.6 H (2-4) g/dL Albumin/Globulin Ratio 0.8 L (1-3) TSH 1.83 (0.34-5.60) mcIU/mL Urine Color Urine Appearance Urine pH (5-9) Ur Specific [place] (1.010-1.030) Urine Protein (Negative) Urine Ketones (Negative) Urine Blood (Negative) Urine Nitrate (Negative) Urine Bilirubin (Negative) Urine Urobilinogen (Negative) Ur Leukocyte Esterase (Negative) Urine WBC (Auto) (Absent) Urine RBC (Auto) (Absent) Urine Bacteria (Absent) Urine Glucose (Negative) 07/28/16 07/28/16 Range/Units 07:55 10:55 WBC (3.5-10.8) 10^3/ul RBC (4.0-5.4) 10^6/ul Hgb (14.0-18.0) g/dl Hct (42-52) % MCV (80-94) fL MCH (27-31) pg MCHC (31-36) g/dl RDW (10.5-15) % Plt Count (150-450) 10^3/ul MPV (7.4-10.4) um3 Neut % (Auto) (38-83) % Lymph % (Auto) (25-47) % Dougherty % (Auto) (1-9) % Eos % (Auto) (0-6) % Baso % (Auto) (0-2) % Absolute Neuts (auto) (1.5-7.7) 10^3/ul Absolute Lymphs (auto) (1.0-4.8) 10^3/ul Absolute Monos (auto) (0-0.8) 10^3/ul Absolute Eos (auto) (0-0.6) 10^3/ul Absolute Basos (auto) (0-0.2) 10^3/ul Absolute Nucleated RBC 10^3/ul Nucleated RBC % Sodium (133-145) mmol/L Potassium (3.5-5.0) mmol/L Chloride (101-111) mmol/L Carbon Dioxide (22-32) mmol/L Anion Gap (2-11) mmol/L BUN (6-24) mg/dL Creatinine (0.67-1.17) mg/dL Est GFR ( Amer) (>60) Est GFR (Non-Af Amer) (>60) BUN/Creatinine Ratio (8-20) Glucose (70-100) mg/dL Lactic Acid (0.5-2.0) mmol/L Calcium (8.6-10.3) mg/dL Magnesium (1.9-2.7) mg/dL Total Bilirubin (0.2-1.0) mg/dL AST (13-39) U/L ALT (7-52) U/L Alkaline Phosphatase (34-104) U/L Total Creatine Kinase (10-223) U/L Troponin I (<0.04) ng/mL C-Reactive Protein (< 5.00) mg/L B-Natriuretic Peptide 82 ( - 100) pg/mL Total Protein (6.4-8.9) g/dL Albumin (3.2-5.2) g/dL Globulin (2-4) g/dL Albumin/Globulin Ratio (1-3) TSH (0.34-5.60) mcIU/mL Urine Color Yellow Urine Appearance Clear Urine pH 6.0 (5-9) Ur Specific [place] 1.013 (1.010-1.030) Urine Protein Negative (Negative) Urine Ketones Negative (Negative) Urine Blood 1+ H (Negative) Urine Nitrate Negative (Negative) Urine Bilirubin Negative (Negative) Urine Urobilinogen Negative (Negative) Ur Leukocyte Esterase Negative (Negative) Urine WBC (Auto) Absent (Absent) Urine RBC (Auto) 1+(3-5/hpf) H (Absent) Urine Bacteria Absent (Absent) Urine Glucose Negative (Negative) Result Diagrams: 07/28/16 07:55 07/28/16 07:55 Lab Statement: Any lab studies that have been ordered have been reviewed, and results considered in the medical decision making process. - Radiology CXR Xray Interpretation: Positive (See Comments) - IMPRESSION: THERE IS POSSIBLY A SMALL AMOUNT OF ATELECTASIS AT THE LATERAL LEFT LUNG BASE BUT NO DEFINITE ACUTE CARDIOPULMONARY ABNORMALITIES. Radiology Interpretation Completed By: Radiologist - CT BRAIN CT Interpretation: No Acute Changes - IMPRESSION: NO ACUTE INTRACRANIAL PATHOLOGY. CHRONIC SMALL VESSEL ISCHEMIC CHANGES. CT Interpretation Completed By: Radiologist - EKG 08:02 EKG Interpretation: NSR @61 BPM, no ST elevation Course/Dx - Course Course Of Treatment: 86 year old male presents with dizziness and general weakness starting yesterday afternoon. states that he has felt unsteady for the last day. Patient also reports blurred vision but denies any MORRISON, cough, CP, SOB, or palpitations. Patient reports fever but none on arrival vitals. Per - patient has had 1 episode prior - reports that he ended up here after this episode. reports that he is at baseline. Assessment/Plan: Test results WNL except WBC 14.6 without bands, Sodium 127, glucose 106, Mg 1.8 - given Mg PO, CRP 56. UA- negative for U.T.I. CXR IMPRESSION-IMPRESSION: THERE IS POSSIBLY A SMALL AMOUNT OF ATELECTASIS AT THE LATERAL LEFT LUNG BASE BUT NO DEFINITE ACUTE CARDIOPULMONARY ABNORMALITIES. CT BRAIN IMPRESSION-NO ACUTE INTRACRANIAL PATHOLOGY. CHRONIC SMALL VESSEL ISCHEMIC CHANGES. EKG - NSR @61 BPM, no ST elevation. Patient is still weak and has difficulty getting up from bed. Patient is occasionally confused - possibly secondary to hypernatremia. I discussed my physical exam and findings with Dr. Sadler who accepts the patient for admission. Patient is hemodynamically stable and A&O x3. - Differential Dx Differential Diagnoses Neuro: Positive: Cerebrovascular Accident, Medication Reaction, Seizure Disorder, Transient Ischemic Attack - Diagnoses Provider Diagnoses: Weakness, Confusion - Physician Notifications Discussed Care Of Patient With: Elissa Sadler - agrees to admit Time Discussed With Above Provider: 10:50 Discharge - Discharge Plan Condition: Stable Disposition: ADMITTED TO [facility] The documentation as recorded by the Homer guerra Auryana accurately reflects the service I personally performed and the decisions made by me, Evangelista Toledo MD.
[2016-07-29] MEDS: Ondansetron INJ* 2 MG/ML VIAL IV PRN ×2 (00:08→19:53)
[2016-07-29] MEDS: Heparin VIAL(*) 5000 UNITS/ML VIAL (FIVE THOUSAND) SUBCUT SCH ×3 (05:56→21:26)
[2016-07-29 07:22] LABS: Hematocrit 43 % (42-52); Hemoglobin 13.7 g/dl (14.0-18.0); Mean Corpuscular HGB Conc 32 g/dl (31-36); Mean Corpuscular Hemoglobin 24 pg (27-31); Mean Platelet Volume 9 um3 (7.4-10.4); Red Blood Count 5.83 10^6/ul (4.0-5.4); Red Cell Distribution Width 17 % (10.5-15); White Blood Count 15.9 10^3/ul (3.5-10.8)
[2016-07-29 07:23] LABS: Comments Flag Yes
[2016-07-29 07:24] LABS: Mean Corpuscular Volume 74 fL (80-94)
[2016-07-29 07:37] LABS: Calcium 8.5 mg/dL (8.6-10.3); EGFR African American 83.8 (>60); EGFR Non-African American 65.1 (>60); Potassium 3.8 mmol/L (3.5-5.0)
--- NOTE | 2016-07-29 08:01 | PN ---
Subjective Date of Service: 07/29/16 Interval History: Patient seen this morning. Says he is still not feeling well. Still feels weak. Had chills overnight, also a few episodes of N/V when attempting to eat. No diarrhea, no chest pain, not coughing much. Family History: Unchanged from Admission Social History: Unchanged from Admission Past Medical History: Unchanged from Admission Objective Active Medications: Acetaminophen (Tylenol Tab*) 650 mg PO Q4H PRN Aspirin (Aspirin Low Dose Tab*) 81 mg PO DAILY LOBO Heparin Sodium (Porcine) (Heparin Vial(*)) 5,000 units SUBCUT Q8HR LOBO Sodium Chloride (Ns 0.9% 1000 Ml*) 1,000 mls @ 100 mls/hr IV PER RATE LOBO Ceftriaxone Sodium 1,000 mg/ (Sodium Chloride) 50 mls @ 200 mls/hr IVPB Q24H LOBO Azithromycin 500 mg/ Sodium (Chloride) 250 mls @ 250 mls/hr IVPB Q24H LOBO Losartan Potassium (Cozaar Tab*) 50 mg PO DAILY LOBO Omeprazole (Prilosec Cap*) 40 mg PO 0730,1630 LOBO Ondansetron HCl (Zofran Inj*) 4 mg IV Q6H PRN Vital Signs 07/28/16 07/28/16 07/28/16 11:30 12:00 12:30 Temperature Pulse Rate 73 73 68 Respiratory 23 17 Rate Blood Pressure 133/77 133/63 125/71 (mmHg) O2 Sat by Pulse 99 98 97 Oximetry 07/29/16 07/29/16 04:07 07:28 Temperature 99.2 F 98.1 F Pulse Rate 83 73 Respiratory 16 18 Rate Blood Pressure 129/68 118/59 (mmHg) O2 Sat by Pulse 95 96 Oximetry Oxygen Devices in Use Now: None Appearance: Elderly, M, appears younger than stated age, laying in bed in NAD Eyes: No Scleral Icterus Ears/Nose/Mouth/Throat: Mucous Membranes Moist Neck: NL Appearance and Movements; NL JVP Respiratory: Symmetrical Chest Expansion and Respiratory Effort, - - LLL rales Cardiovascular: NL Sounds; No Murmurs; No JVD, RRR Abdominal: NL Sounds; No Tenderness; No Distention Lymphatic: No Cervical Adenopathy Extremities: No Edema Skin: No Rash or Ulcers Neurological: Alert and Oriented x 3 Result Diagrams: 07/29/16 06:47 07/29/16 06:47 Microbiology and Other Data: Microbiology 07/28/16 15:10 Legionella Urinary Antigen - Final Urine Negative Legionella Streptococcus pneumoniae Ag Screen - Final Negative S. pneumo Antigen Assess/Plan/Problems-Billing Assessment: CAP, hyponatremia in an 86 yo M with hx of HTN, GERD, PMR - Patient Problems (1) Community acquired pneumonia Current Visit: No Comment: Continue IV CTX and Azithromycin. Not requiring O2. WBC up a bit today. Urine legionella and strep pneumo antigens negative (2) Hyponatremia Current Visit: Yes Comment: Trending back up. With continued N/V will continue NS at 100 cc/hr. (3) HTN (hypertension) Current Visit: No Comment: Continue losartan (4) GERD (gastroesophageal reflux disease) Current Visit: No Comment: Continue omeprazole. (5) PMR (polymyalgia rheumatica) Current Visit: Yes Comment: Seems stable. No longer on outpatient steroids. (6) Weakness Current Visit: Yes Comment: Likely 2/2 PNA. PT eval pending . (7) DVT prophylaxis Current Visit: No Comment: SQ heparin Status and Disposition: Inpatient for CAP, persistent N/V
[2016-07-29] MEDS: NS 0.9% 1000 ML* 1,000 ML IV SCH ×2 (08:17→21:26)
[2016-07-29] MEDS: Acetaminophen TAB* 325 MG PO PRN ×2 (08:17→19:47)
[2016-07-29] MEDS: Aspirin Low Dose CHEW TAB* 81 MG PO SCH (08:17)
[2016-07-29] MEDS: Losartan TAB* 25 MG PO SCH (08:17)
[2016-07-29] MEDS: Omeprazole CAP* 20 MG PO SCH ×2 (08:18→17:00)
[2016-07-29] MEDS ORDERED: Ibuprofen TAB* 400 MG PO PRN (08:45)
[2016-07-29] MEDS: cefTRIAXone VIAL(*) 1,000 MG in NS 0.9% 50 ML* 50 ML IVPB SCH (13:01)
[2016-07-29] MEDS: Azithromycin IV(*) 500 MG in NS 0.9% 250 ML* 250 ML IVPB SCH (13:18)
[2016-07-30] MEDS: Heparin VIAL(*) 5000 UNITS/ML VIAL (FIVE THOUSAND) SUBCUT SCH ×3 (05:40→20:52)
[2016-07-30 06:55] LABS: Hematocrit 44 % (42-52); Hemoglobin 13.9 g/dl (14.0-18.0); Mean Corpuscular HGB Conc 32 g/dl (31-36); Mean Corpuscular Hemoglobin 24 pg (27-31); Mean Platelet Volume 9 um3 (7.4-10.4); Red Cell Distribution Width 17 % (10.5-15); White Blood Count 14.6 10^3/ul (3.5-10.8)
[2016-07-30 07:00] LABS: Comments Flag Yes
[2016-07-30 07:01] LABS: Add Diff/Slide Review? Manual Diff Added; Mean Corpuscular Volume 74 fL (80-94)
[2016-07-30 07:03] LABS: BUN/Creatinine Ratio 10.8 (8-20); Calcium 8.8 mg/dL (8.6-10.3); EGFR African American 81.2 (>60); EGFR Non-African American 63.1 (>60); Potassium 3.8 mmol/L (3.5-5.0)
[2016-07-30 08:11] LABS: Immature Granulocytes 10 % (0-9); Neutrophil % 68 % (38-83)
[2016-07-30 08:13] LABS: RBC Morphology Normal (Normal)
[2016-07-30] MEDS ORDERED: Pneumococcal Vac Polyvalent* 0.5 ML VIAL IM ONE (09:00)
--- NOTE | 2016-07-30 09:18 | PN ---
Subjective Date of Service: 07/30/16 Interval History: Patient seen this morning, states he is feeling better this morning. He is eating breakfast. No fever overnight. Chronic cough unchanged. Ambulated in the hallway yesterday. Still complaining of intermittent headache. Family History: Unchanged from Admission Social History: Unchanged from Admission Past Medical History: Unchanged from Admission Objective Active Medications: Acetaminophen (Tylenol Tab*) 650 mg PO Q4H PRN Aspirin (Aspirin Low Dose Tab*) 81 mg PO DAILY LOBO Heparin Sodium (Porcine) (Heparin Vial(*)) 5,000 units SUBCUT Q8HR LOBO Ceftriaxone Sodium 1,000 mg/ (Sodium Chloride) 50 mls @ 200 mls/hr IVPB Q24H LOBO Azithromycin 500 mg/ Sodium (Chloride) 250 mls @ 250 mls/hr IVPB Q24H LOBO Sodium Chloride (Ns 0.9% 1000 Ml*) 1,000 mls @ 100 mls/hr IV PER RATE LOBO Ibuprofen (Motrin Tab*) 400 mg PO Q6H PRN Losartan Potassium (Cozaar Tab*) 50 mg PO DAILY LOBO Omeprazole (Prilosec Cap*) 40 mg PO 0730,1630 LOBO Ondansetron HCl (Zofran Inj*) 4 mg IV Q6H PRN Vital Signs 07/29/16 07/29/16 07/29/16 11:26 15:37 19:51 Temperature 98.2 F 97.6 F 97.6 F Pulse Rate 56 60 69 Respiratory 16 20 20 Rate Blood Pressure 116/54 109/67 146/67 (mmHg) O2 Sat by Pulse 96 100 95 Oximetry 07/29/16 07/29/16 07/30/16 20:00 23:59 03:53 Temperature 97.8 F 98.4 F Pulse Rate 68 64 Respiratory 18 16 18 Rate Blood Pressure 125/61 156/73 (mmHg) O2 Sat by Pulse 93 97 Oximetry Oxygen Devices in Use Now: None Appearance: Elderly, M, sitting in bed in NAD Eyes: No Scleral Icterus Ears/Nose/Mouth/Throat: Mucous Membranes Moist Neck: NL Appearance and Movements; NL JVP Respiratory: Symmetrical Chest Expansion and Respiratory Effort, - - LLL rales, otherwise clear Cardiovascular: NL Sounds; No Murmurs; No JVD, RRR Abdominal: NL Sounds; No Tenderness; No Distention Lymphatic: No Cervical Adenopathy Extremities: No Edema Skin: No Rash or Ulcers Neurological: Alert and Oriented x 3, - - CN II-XII intact, strength 5/5 throughtout B/L UEs and LEs, sensation intact and symmetric Result Diagrams: 07/30/16 06:19 07/30/16 06:20 Additional Lab and Data: Assess/Plan/Problems-Billing Assessment: CAP, hyponatremia in an 86 yo M with hx of HTN, GERD, PMR - Patient Problems (1) Community acquired pneumonia Current Visit: No Comment: Continue IV CTX and Azithromycin for now. Not requiring O2. WBC trending back down, slight bandemia. Urine legionella and strep pneumo antigens negative (2) Hyponatremia Current Visit: Yes Comment: Improved. Taking PO. Stop IVF (3) HTN (hypertension) Current Visit: No Comment: Continue losartan, holding HCTZ. (4) GERD (gastroesophageal reflux disease) Current Visit: No Comment: Continue omeprazole. (5) PMR (polymyalgia rheumatica) Current Visit: Yes Comment: Seems stable. No longer on outpatient steroids. (6) Weakness Current Visit: Yes Comment: 2/2 PNA. PT cleared patient for home. (7) DVT prophylaxis Current Visit: No Comment: SQ heparin Status and Disposition: Inpatient for CAP, potential discharge today or tomorrow
[2016-07-30] MEDS: Aspirin Low Dose CHEW TAB* 81 MG PO SCH (09:32)
[2016-07-30] MEDS: Losartan TAB* 25 MG PO SCH (09:32)
[2016-07-30] MEDS: Omeprazole CAP* 20 MG PO SCH ×2 (09:32→16:50)
[2016-07-30] MEDS: cefTRIAXone VIAL(*) 1,000 MG in NS 0.9% 50 ML* 50 ML IVPB SCH (13:10)
[2016-07-30] MEDS: Azithromycin IV(*) 500 MG in NS 0.9% 250 ML* 250 ML IVPB SCH (13:34)
--- NOTE | 2016-07-30 14:07 | PN ---
Hospitalist Progress Note Patient reported some difficulty with coordination this morning with breakfast and then had some problems with balance while ambulating, no significant findings on neuro exam although maybe some difficulty with [id number]. ? vestibular neuritis but will r/o CVA with MRI.
[2016-07-30] MEDS ORDERED: Meclizine TAB* 12.5 MG PO PRN (14:13)
[2016-07-30] MEDS: Ondansetron INJ* 2 MG/ML VIAL IV PRN (20:52)
[2016-07-30] MEDS: Acetaminophen TAB* 325 MG PO PRN (20:52)
[2016-07-31 06:15] LABS: Hematocrit 42 % (42-52); Hemoglobin 13.4 g/dl (14.0-18.0); Mean Corpuscular HGB Conc 32 g/dl (31-36); Mean Corpuscular Hemoglobin 23 pg (27-31); Mean Platelet Volume 9 um3 (7.4-10.4); Red Blood Count 5.73 10^6/ul (4.0-5.4); Red Cell Distribution Width 17 % (10.5-15); White Blood Count 15.1 10^3/ul (3.5-10.8)
[2016-07-31] MEDS: Heparin VIAL(*) 5000 UNITS/ML VIAL (FIVE THOUSAND) SUBCUT SCH ×3 (06:25→22:55)
[2016-07-31 06:27] LABS: Add Diff/Slide Review? Slide Review Added; Comments Flag Yes; Mean Corpuscular Volume 73 fL (80-94)
[2016-07-31 06:55] LABS: BUN/Creatinine Ratio 11.9 (8-20); Calcium 8.8 mg/dL (8.6-10.3); EGFR African American 90.5 (>60); EGFR Non-African American 70.4 (>60); Potassium 3.9 mmol/L (3.5-5.0)
[2016-07-31 07:40] LABS: Eosinophils % 5 % (0-6); Immature Granulocytes 1 % (0-9); Microcytosis 1+; Neutrophil % 63 % (38-83); Reactive Lymph % 4 % (0-6)
[2016-07-31] MEDS: Aspirin Low Dose CHEW TAB* 81 MG PO SCH (07:59)
[2016-07-31] MEDS: Losartan TAB* 25 MG PO SCH (08:00)
[2016-07-31] MEDS: Omeprazole CAP* 20 MG PO SCH ×2 (08:00→17:35)
--- NOTE | 2016-07-31 09:10 | PN ---
Subjective Date of Service: 07/31/16 Interval History: Patient seen this morning. Says he is feeling better overall. No MORRISON. No further N/V although did not eat much yesterday, finished his breakfast this morning. Has not been ambulating much again since yesterday. Family History: Unchanged from Admission Social History: Unchanged from Admission Past Medical History: Unchanged from Admission Objective Active Medications: Acetaminophen (Tylenol Tab*) 650 mg PO Q4H PRN Aspirin (Aspirin Low Dose Tab*) 81 mg PO DAILY LOBO Heparin Sodium (Porcine) (Heparin Vial(*)) 5,000 units SUBCUT Q8HR LOBO Ceftriaxone Sodium 1,000 mg/ (Sodium Chloride) 50 mls @ 200 mls/hr IVPB Q24H LOBO Azithromycin 500 mg/ Sodium (Chloride) 250 mls @ 250 mls/hr IVPB Q24H LOBO Ibuprofen (Motrin Tab*) 400 mg PO Q6H PRN Losartan Potassium (Cozaar Tab*) 50 mg PO DAILY LOBO Meclizine HCl (Antivert Tab*) 12.5 mg PO Q8HR PRN Omeprazole (Prilosec Cap*) 40 mg PO 0730,1630 LOBO Ondansetron HCl (Zofran Inj*) 4 mg IV Q6H PRN Vital Signs 07/30/16 07/30/16 07/30/16 13:39 15:41 19:39 Temperature 98.1 F 100.9 F Pulse Rate 71 81 Respiratory 20 20 Rate Blood Pressure 135/62 145/72 (mmHg) O2 Sat by Pulse 92 100 96 Oximetry 07/30/16 07/30/16 07/30/16 20:00 22:33 23:50 Temperature 99.2 F 99.0 F Pulse Rate 57 Respiratory 20 18 Rate Blood Pressure 111/50 (mmHg) O2 Sat by Pulse 97 Oximetry 07/31/16 07/31/16 07/31/16 01:20 03:46 07:32 Temperature 98.6 F 99.4 F Pulse Rate 56 78 Respiratory 20 22 Rate Blood Pressure 120/58 138/69 (mmHg) O2 Sat by Pulse 97 97 95 Oximetry Oxygen Devices in Use Now: None Appearance: Elderly, M, sitting in chair in NAD Eyes: No Scleral Icterus Ears/Nose/Mouth/Throat: Mucous Membranes Moist Neck: NL Appearance and Movements; NL JVP Respiratory: Symmetrical Chest Expansion and Respiratory Effort, - - LLL rales Cardiovascular: NL Sounds; No Murmurs; No JVD, RRR Abdominal: NL Sounds; No Tenderness; No Distention Lymphatic: No Cervical Adenopathy Extremities: No Edema Skin: No Rash or Ulcers Neurological: Alert and Oriented x 3, - - Some lateral nystagmus on exam, head thrust negative, some difficulty with finger to nose on L>R Result Diagrams: 07/31/16 05:57 07/31/16 05:57 Additional Lab and Data: Assess/Plan/Problems-Billing Assessment: CAP, hyponatremia in an 86 yo M with hx of HTN, GERD, PMR - Patient Problems (1) Community acquired pneumonia Current Visit: No Comment: Continue IV CTX and Azithromycin for now. Not requiring O2. WBC stable, bandemia resolved. Low grade fever yesterday evening. Urine legionella and strep pneumo antigens negative (2) Dizziness Current Visit: Yes Comment: nausea. ?vertigo, vestibluar neuritis. Meclizine started yesterday. Will get MRI/MRA to eval for possible posterior CVA. Continue zofran. Ambulate patient again today. (3) Hyponatremia Current Visit: Yes Comment: Improving, taking PO today (4) HTN (hypertension) Current Visit: No Comment: Continue losartan, holding HCTZ. (5) GERD (gastroesophageal reflux disease) Current Visit: No Comment: Continue omeprazole. (6) PMR (polymyalgia rheumatica) Current Visit: Yes Comment: Seems stable. No longer on outpatient steroids. (7) DVT prophylaxis Current Visit: No Comment: SQ heparin Status and Disposition: Inpatient for CAP, N/V/dizziness
--- NOTE | 2016-07-31 12:14 | RAD ---
Indication: Shoulder, machine setter sheet metal. 2 views of the orbits demonstrates no radiopaque foreign body. Paranasal sinuses are otherwise unremarkable. IMPRESSION: No radiopaque foreign body is identified.
--- NOTE | 2016-07-31 12:16 | RAD ---
Indication: Dizziness. Clinical concern for posterior distribution CVA. Comparison: MRI brain of the same date negative for restricted diffusion to indicate acute or subacute ischemia. Technique: ID90Ta 1.5 Barb [id number] with GEM suite. MR angiography 3-D [id number] data was obtained with rotational display of the bill moore's slough of [place] and posterior fossa arteries. Report: Patent bilateral intracranial internal carotid arteries as well as the M1 and M2 middle cerebral artery segments. The bilateral A2 anterior to artery segments are supplied by a unilateral dominant LEFT A1 segment with patent anterior communicating artery. RIGHT dominant vertebral artery with both vertebral arteries contributing to the basilar artery. 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 Only limited flow appreciated in the bilateral posterior cerebral arteries. Associated hypoperfusion at the bilateral posterior cerebral arteries. The RIGHT posterior cerebral artery is supplied primarily by a RIGHT posterior communicating artery and the LEFT posterior cerebral artery is supplied primarily by the P1 segment from the posterior circulation. No intracranial aneurysms evident. IMPRESSION: 1. 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 2. Associated hypoperfusion at the bilateral posterior cerebral arteries. The RIGHT posterior cerebral artery is supplied primarily by a RIGHT posterior communicating artery and the LEFT posterior cerebral artery is supplied primarily by the P1 segment from the posterior circulation.
--- NOTE | 2016-07-31 12:18 | RAD ---
HISTORY: Dizziness. Clinical concern for posterior circulation CVA. COMPARISONS: CT brain July 28, 2016 TECHNIQUE: The following sequences were obtained of the head: Sagittal T1-weighted images, axial T2-weighted images, axial FLAIR images, axial susceptibility weighted images, axial T1-weighted images. Additionally, axial diffusion-weighted images were obtained with calculated apparent diffusion coefficients.. FINDINGS: HEMORRHAGE/INFARCT: There is no hemorrhage or acute infarct. MASSES/SHIFT: There is no mass or shift. EXTRA-AXIAL SPACES/MENINGES: There are no extra-axial fluid collections. SULCI AND VENTRICLES: The sulci and ventricles exhibit appropriate and symmetric involutional changes for the patient's stated age. CEREBRUM: There is widespread subcortical and periventricular white matter T2 bright foci as well as more confluent areas adjacent to the ventricles. More peripherally the wilson-white matter differentiation appears to be adequately maintained. At the left frontal parietal white matter tracts there is a 4 mm T2 bright focus (image 23 of 32) that corresponds to dark signal on diffusion-weighted imaging and bright signal on ADC. This is most consistent with an old lacunar infarction or enlarged perivascular space. BRAINSTEM: There are no focal parenchymal abnormalities. CEREBELLUM: There are no focal parenchymal abnormalities. The cerebellar tonsils are normal in size and position. SELLA: The sella is normal. PINEAL: The pineal region is clear. CP ANGLE/TEMPORAL BONES: The labyrinthine structures are grossly normal. VESSELS: Normal flow-voids are noted within the visualized vertebral vasculature. DIFFUSION ABNORMALITIES: There are no diffusion abnormalities. PARANASAL SINUSES/MASTOIDS: The paranasal sinuses are clear. ORBITS: The orbits are unremarkable. BONES AND SOFT TISSUE: No bone or soft tissue abnormalities are noted. IMPRESSION: 1. NO MRI EVIDENCE OF ACUTE TERRITORIAL INFARCTION. 2. 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 IF CLINICALLY WARRANTED FURTHER CHARACTERIZATION CAN BE MADE WITH CONTRAST-ENHANCED MRI OF THE BRAIN TO EVALUATE FOR POTENTIAL DEMYELINATING DISEASE.
--- NOTE | 2016-07-31 12:23 | RAD ---
Indication: Dizziness. MRA of the neck was performed utilizing no intravenous contrast. The cervical carotid arteries and intracranial carotid arteries were visualized are unremarkable. No evidence of occlusion or stenosis is noted. Vertebral artery demonstrates a dominant right vertebral artery. The visualized portions of the basilar artery are grossly unremarkable. IMPRESSION: The internal carotid artery within the neck are grossly unremarkable with no significant stenosis. Dominant right vertebral artery is noted.
[2016-07-31] MEDS: cefTRIAXone VIAL(*) 1,000 MG in NS 0.9% 50 ML* 50 ML IVPB SCH (14:47)
[2016-07-31] MEDS: Azithromycin IV(*) 500 MG in NS 0.9% 250 ML* 250 ML IVPB SCH (14:49)
--- NOTE | 2016-07-31 16:36 | CONS ---
CC: Dr. Wilson * CONSULTATION NOTE: DATE OF CONSULT: DATE OF DICTATION: 07/31/16 REQUESTING PHYSICIAN: Dr. Cesar Peterson. HISTORY OF PRESENT ILLNESS: Mr. José Luis Chavez is an 86-year-old gentleman with history of hypertension who was admitted to the hospital on 07/29/16 when he felt weak and dizzy after being on a tractor. In further review of his history , he was previously admitted in February 2016 with similar symptoms, at which point he was diagnosed with pneumonia. He had an elevated white count. At that time, he had been on a pickup truck and he had not been feeling well and his friend had driven the pickup truck. When he tried to get out of the pickup truck, he felt weak. After discharge, it took him 2 months before he felt back to normal. His white count did normalize according to records in the hospital. This time, he was fine until the day prior to this admission. He had not felt well and gone to bed at 7 o'clock in the evening. The day of admission, he was on a tractor and felt thickheaded and faint, was so weak he had to crawl back to the house. He felt like his arms and legs did work. There was no numbness. No lack of vision or double vision. When he got to the house, he crawled to get to the bathroom, but did not make it there in time. At baseline, he does take baby aspirin on occasion, but not on a regular basis because he feels like when he cuts himself, it takes longer to stop the bleeding. He has a remote history of smoking, with last smoking 25 years ago. At home, he is on losartan and hydrochlorothiazide and indicates he has been on this for 15 years. Since in hospital, he has noted that he has had difficulty knowing where his feet are in space when he was walking and difficulty reaching toward objects on his tray, feeling he could not cam specialist distances. This has improved. He went from having difficulty walking just to the bathroom yesterday to walking around the floor today. His initial blood pressure was noted to be 113/55; today is 138/68. He indicates at home his systolic blood pressure is often in the 150s, 160s when he records it. In workup of his symptoms, he had an MRI/MRA of the brain. 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 PAST MEDICAL HISTORY: Mr. Chavez's past medical history includes: 1. Hypertension. 2. GERD. 3. Hiatal hernia. 4. Question of PMR, on steroids up to 1 month before his February admission. 5. History of hip surgery. 6. Laparoscopic surgery for Elias fundoplication. 7. Hiatal hernia. ALLERGIES: He has no known drug allergies. FAMILY HISTORY: Includes mother with a history of alcohol use. Father who had a brain aneurysm. SOCIAL HISTORY: Mr. Chavez is . 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 He stopped smoking age 27. He does not drink alcohol. REVIEW OF SYSTEMS: When asked about double vision, only time he felt he had double vision was when he was first admitted and it was dark in the room and he thought he saw two faces when he was looking at someone. Otherwise, there has been no diplopia. He does have some decline in his vision over years and his glasses do not seem to be working as well, and he has been told he has cataracts and needs to have repair. There has been no new numbness or weakness of arms or legs, change in bowel or bladder habits, chest pain, chest pressure, palpitations, shortness of breath, or recent rashes. He denies any change in cognition or mood. PHYSICAL EXAM: On examination today, Mr. Chavez is a very pleasant gentleman who is sitting in his chair next to his bed. His most recent blood pressure was 138/68, his pulse was 78, respiratory rate was 22, saturation was 95%, temperature was 99.4 degrees Fahrenheit. He had a regular cardiac rhythm. His lungs were clear to auscultation. There was no carotid bruit. He was awake, alert, showed appropriate concern. He knew he was in hospital. He knew details regarding his history. No rashes were noted. Some toe nail changes were noted. He had full extraocular movements with full kam to confrontation. His facial expression, sensation, and hearing were equal. Palate was upgoing. Tongue was midline. Sternocleidomastoid and trapezius were 5/5 in strength. There was normal bulk and tone. No pronator drift. Full strength in the upper and lower extremities with normal [id number] and [id number]-[id number] movements. Reflexes were 2+ in the upper extremities, absent in the lower extremities. Vibration was absent at the toes and ankles, decreased at the knees and distal interphalangeal joints in the second finger of the hands at 15 seconds. Proprioception was intact. He denied any asymmetries to cold, light touch, or sharp. His toes were flexor response. He walked with a walker with increased stance at approximately 6 inches. He was able to do so independently. No evidence of dysmetria was noted. DIAGNOSTIC STUDIES/LAB DATA: Data includes white count with persistent elevated white count at 15.5, hemoglobin and hematocrit 13.4 and 42 respectively , platelet count was 332,000. His monocytes remain elevated at 29.1%. His basic metabolic panel shows sodium of 131 which is improved from admission labs when Sodium was 127. His urinalysis on admission did not show white count, esterase or nitrites. His MRA of the brain and neck showed 90% stenosis of the proximal basilar artery. Please see report for details including variance noted on blood vessels. MRI Brain showed old periventricular subcortical white matter changes. These films were both reviewed directly. IMPRESSION: Mr. Chavez is an 86-year-old gentleman with repeat admission with a thick fuzzy feeling in the head, dizziness, and feeling faint and weak in February in the setting of a diagnosed pneumonia and now in the setting of low- grade fever, elevated white count, increased monocytes. 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 One must question if it is symptomatic in the setting of hypoperfusion and the setting of illness, as well as continuing to work. His blood pressure was 113/55. He is on losartan combined with hydrochlorothiazide and I agree with stopping the diuretic. He reports that he usually runs a higher systolic blood pressure of 150 to 160 at home which is appropriate in the setting of a significant stenosis. We talked about conservative and interventional approaches to basilar stenosis. No clear focal findings are noted on examination or MRI Brain at this time. The history of difficulty being able to control his hands and feet does raise the question of being symptomatic with hypoperfusion. It is essential to keep the basilar artery open, and I have talked with him about the importance of a minimum baby aspirin a day; however, we might have to progress to combination therapy with Plavix. We will check a fasting lipid profile and consider statin. We will need to optimize his blood pressure by at minimum stop hydrochlorothiazide. Would allow systolic to run up to 150-160, and avoid hypotension. We will continue on losartan at 50 mg for now. We will check an echocardiogram and optimize medication accordingly. The patient should avoid being out in the heat in the day and focus on hydration and blood pressure should be monitored closely. Certainly, if there is progression of symptoms, intervention would need to be considered and at which point, I would refer to [place]. There are significant risks with basilar artery intervention including stroke. According to symptoms , we will consider outpatient consultation. At this point, I do suspect a multifactorial cause for decline, as Mr. Chavez was quite fatigued with a low-grade fever and elevated white count noted suggesting superimposed infection in both February and now, this may have contributed to his overall status. Of note, his white count did normalize between the admissions. TIME SPENT: Over an hour and a half was spent in direct [id number] patient care and review of records. All questions were answered. [id number]/[facility] #: [id number] LAMIN
--- NOTE | 2016-07-31 19:21 | ECHO ---
Amended Report Patient: KATHI MILLER [facility] Rec#: [id number] : 1930 Date: 07/31/2016 Age: 86y Height: 177.8 cm / 70.0 in Weight: 81.65 kg / 180.0 lbs Sex: M BSA: 2 Room#: 420 2 Admit Date#: 07/30/2016 Type: Inpatient Referring: Nancy Nicole MD Reading: Isidro Guerrero MD Director Community Organization: Nancy Paniagua,[facility],RDMS CC: Nathaniel Wilson MD Transthoracic Echocardiogram Indication: AOV disorder, TIA BP: 138/67 HR: 60 Rhythm: NSR Findings History: GERD, HTN Technical Comments: The study quality is fair. Completed 1600 Left Ventricle: The left ventricular chamber size is normal. Mild concentric left ventricular hypertrophy is observed. There is normal left ventricular systolic function. The estimated ejection fraction is 55-60%. Abnormal left ventricular diastolic function is observed. The left ventricular diastolic filling pattern is consistent with pseudonormalization. Left Atrium: The left atrium is moderately dilated. Right Ventricle: The right ventricular chamber size and systolic function are within normal limits. Right Atrium: The right atrium is mild to moderately dilated. Aortic Valve: The aortic valve leaflets are moderately thickened. Systolic excursion of the aortic valve cusps is reduced. There is mild aortic regurgitation. There is moderate aortic stenosis. The mean gradient of the aortic valve is 21 mmHg. The aortic valve area, by peak velocities, is calculated at 1.3 cm2. Highest aortic valve velocity was acquired with Pedoff in apical position. Mitral Valve: The mitral valve leaflets are mildly thickened. There is a trace of mitral regurgitation. There is no evidence of mitral stenosis. Tricuspid Valve: The tricuspid valve leaflets are normal. There is trace tricuspid regurgitation. Unable to estimate the right ventricular systolic pressure. Pulmonic Valve: The pulmonic valve structure is not well visualized. There is a trace pulmonic regurgitation. Pericardium: There is no significant pericardial effusion. Aorta: The aortic root appears normal. There is no dilatation of the aortic arch. Pulmonary Artery: The main pulmonary artery is not well visualized. Venous: The inferior vena cava is dilated. There is less than 50% respiratory change in the inferior vena cava dimension. Conclusions Mild concentric left ventricular hypertrophy is observed. The estimated ejection fraction is 55-60%. The left ventricular diastolic filling pattern is consistent with pseudonormalization. The left atrium is moderately dilated. Systolic excursion of the aortic valve cusps is reduced. There is moderate aortic stenosis. The mean gradient of the aortic valve is 21 mmHg. There is a trace of mitral regurgitation. There is trace tricuspid regurgitation. Unable to estimate the right ventricular systolic pressure. There is no significant pericardial effusion. Measurements Name Value Normal Range RVIDd (AP) 2D 2.7 cm (0.9 - 2.6) RVDdMajor (2D) 4.2 cm (2.2 - 4.4) RAd ISD 4CH 5.7 cm (3.4 - 4.9) RA (A4C)W 5.8 cm (2.9 - 4.6) IVSd (2D) 1.4 cm (0.6 - 1) LVPWd (2D) 1.2 cm (0.6 - 1) LVIDd (2D) 4.4 cm (3.6 - 5.4) LVIDs (2D) 3 cm - LV FS (2D) 32 % (25 - 45) Aortic Annulus 2 cm (1.4 - 2.6) Ao root diameter (2D) 2.9 cm (2.1 - 3.5) Ascending Ao 2.7 cm (2.1 - 3.4) Aortic arch 3.1 cm (1.8 - 3.4) LA dimension (AP) 2D 3.9 cm (2.3 - 3.8) LAd ISD 4CH 5.8 cm (2.9 - 5.3) LA ISD 4CH W 5.3 cm (2.5 - 4.5) Name Value Normal Range LA ESV SP 4CH (A/L) 100.16 ml - LA ESV SP 2CH (A/L) 91.94 ml - LA ESV BP (A/L) 99.54 ml - LA ESV BP (A/L) index 50 ml/m2 - LA ESV SP 4CH (MOD) 90.57 ml - LA ESV SP 2CH (MOD) 84.53 ml - Name Value Normal Range MV E-wave Vmax 0.9 m/sec - MV deceleration time 189 msec - MV A-wave Vmax 0.8 m/sec - MV E:A ratio 1.1 ratio - P. vein S-wave Vmax 0.5 m/sec - P. vein D-wave Vmax 0.3 m/sec - P. vein S:D Vmax ratio 1.8 ratio - P. vein A-wave duration 133 msec - Name Value Normal Range AV Vmax 3 m/sec - AV VTI 67.4 cm - AV peak gradient 36 mmHg - AV mean gradient 21 mmHg - LVOT diameter 1.9 cm - LVOT Vmax 1.4 m/sec - LVOT VTI 31.2 cm - LVOT peak gradient 8 mmHg - LVOT mean gradient 3.7 mmHg - DOI (VTI) 0.5 ratio - SV LVOT 91.66 ml - CRIS (continuity Vmax) 1.3 cm2 - CRIS (continuity VTI) 1.3 cm2 - AR PHT 466.85 msec - AR peak gradient 62.85 mmHg - ELODIA Vmax 1.2 m/sec - Name Value Normal Range RAP 8 mmHg - IVC diameter 3.3 cm - Name Value Normal Range PV Vmax 0.9 m/sec - PV peak gradient 3.2 mmHg -
[2016-07-31 20:16] LABS: HDL Cholesterol 22.9 mg/dL
[2016-07-31 20:51] LABS: HDL Cholesterol 24.6 mg/dL
[2016-08-01] MEDS: Heparin VIAL(*) 5000 UNITS/ML VIAL (FIVE THOUSAND) SUBCUT SCH ×3 (06:38→22:02)
--- NOTE | 2016-08-01 09:21 | PN ---
Subjective Date of Service: 08/01/16 Interval History: Patient seen this morning. Says he is feeling alright this AM. Walked around yesterday, still feels a bit weak. No fever or chills. No cough. Family History: Unchanged from Admission Social History: Unchanged from Admission Past Medical History: Unchanged from Admission Objective Active Medications: Acetaminophen (Tylenol Tab*) 650 mg PO Q4H PRN Aspirin (Aspirin Low Dose Tab*) 81 mg PO DAILY LOBO Heparin Sodium (Porcine) (Heparin Vial(*)) 5,000 units SUBCUT Q8HR LOBO Ceftriaxone Sodium 1,000 mg/ (Sodium Chloride) 50 mls @ 200 mls/hr IVPB Q24H LOBO Ibuprofen (Motrin Tab*) 400 mg PO Q6H PRN Meclizine HCl (Antivert Tab*) 12.5 mg PO Q8HR PRN Omeprazole (Prilosec Cap*) 40 mg PO 0730,1630 LOBO Ondansetron HCl (Zofran Inj*) 4 mg IV Q6H PRN Vital Signs 07/31/16 07/31/16 07/31/16 12:40 15:22 20:04 Temperature 97.5 F 98.2 F 98.3 F Pulse Rate 61 69 64 Respiratory 20 18 16 Rate Blood Pressure 136/51 129/57 142/77 (mmHg) O2 Sat by Pulse 98 95 95 Oximetry 08/01/16 03:29 Temperature Pulse Rate 59 Respiratory 17 Rate Blood Pressure 158/66 (mmHg) O2 Sat by Pulse 96 Oximetry Oxygen Devices in Use Now: None Appearance: Elderly, M, sitting in chair in NAD Eyes: No Scleral Icterus Ears/Nose/Mouth/Throat: Mucous Membranes Moist Neck: NL Appearance and Movements; NL JVP Respiratory: Symmetrical Chest Expansion and Respiratory Effort, Clear to Auscultation Cardiovascular: NL Sounds; No Murmurs; No JVD, RRR Abdominal: NL Sounds; No Tenderness; No Distention Lymphatic: No Cervical Adenopathy Extremities: No Edema Skin: No Rash or Ulcers Neurological: Alert and Oriented x 3, - - No focal deficits, did not ambulate patient today Result Diagrams: 07/31/16 05:57 07/31/16 05:57 Additional Lab and Data: Assess/Plan/Problems-Billing Assessment: CAP, hyponatremia, basilar artery stenosis in an 86 yo M with hx of HTN, GERD, PMR - Patient Problems (1) Basilar artery stenosis Current Visit: Yes Comment: Likely contributing to his symptoms. Appreciate Neuro assistance. Continue ASA daily for now. Will hold Losartan today in addition to home HCTZ to see what his BPs do. Echo with some moderate aortic stenosis. Will discuss further with Neuro today. (2) Community acquired pneumonia Current Visit: No Comment: Continue IV CTX. Procalcitonin 0.9 yesterday after a number of days of ABx. Completed Azithromycin. CBC pending. (3) Hyponatremia Current Visit: Yes Comment: Improving, recheck BMP tomorrow (4) HTN (hypertension) Current Visit: No Comment: Hold Losartan, holding HCTZ. (5) GERD (gastroesophageal reflux disease) Current Visit: No Comment: Continue omeprazole. (6) PMR (polymyalgia rheumatica) Current Visit: Yes Comment: Seems stable. No longer on outpatient steroids. (7) DVT prophylaxis Current Visit: No Comment: SQ heparin Status and Disposition: Inpatient for CAP, N/V/dizziness
[2016-08-01] MEDS: Losartan TAB* 25 MG PO SCH (09:31)
[2016-08-01] MEDS: Aspirin Low Dose CHEW TAB* 81 MG PO SCH (10:00)
[2016-08-01] MEDS: Omeprazole CAP* 20 MG PO SCH ×2 (10:00→16:55)
[2016-08-01] MEDS: cefTRIAXone VIAL(*) 1,000 MG in NS 0.9% 50 ML* 50 ML IVPB SCH (13:26)
--- NOTE | 2016-08-01 23:59 | PN ---
NEUROLOGICAL FOLLOWUP: DATE OF SERVICE/DICTATION: 08/01/16 PATIENT OF: Dr. Cesar Peterson. HISTORY: This 86-year-old man, who I am doing neurological followup for his weakness and dizziness. His blood pressure has been running somewhat low and he has had basilar artery stenosis of 90%. This has been addressed by Dr. Nicole, who wanted me to see in followup. MEDICATIONS: Included: 1. Aspirin 81 mg daily. 2. Ceftriaxone IV push. 3. Meclizine 12.5 mg q.8 hours p.r.n. 4. Prilosec 40 mg daily. 5. No losartan today. PAST MEDICAL HISTORY: He has had a history of hypertension and PMR. Unchanged. FAMILY HISTORY: Unchanged. SOCIAL HISTORY: Unchanged. PHYSICAL EXAM: Temperature 98, pulse 57, respirations 16, blood pressure 123/ 56. He was alert and oriented with normal speech. Cranial nerves II through XII are intact. Motor exam revealed normal tone, strength, coordination. Sensation intact to light touch. Chest: Clear. Cardiovascular: Regular rate and rhythm. Reflexes were 1 and equal. DIAGNOSTIC DATA/LABORATORY DATA: His transthoracic echo showed a moderate dilated left atrium, otherwise no significant findings. There were no labs done today. IMPRESSION: It is by no means proved but it is very possible that basilar artery stenosis is causing brainstem hypoperfusion and causing his symptoms of dizziness and I agree it is reasonable to back off his blood pressure medications and with blood pressure of 123/56, I would probably hold his antihypertensives and see if he needs them at all. This will need to be followed as an outpatient because it may be different as an outpatient as well. He will need to see his primary care doctor in close followup. If he continues to be symptomatic, it would be appropriate that Dr. Nicole see him in followup, but I am not sure if there are no further symptoms this needs to happen. Thank you for sharing his case. [id number]/[facility] #: [id number] LAMIN
[2016-08-02 04:46] LABS: Hematocrit 44 % (42-52); Mean Corpuscular HGB Conc 32 g/dl (31-36); Mean Corpuscular Hemoglobin 23 pg (27-31); Mean Corpuscular Volume 74 fL (80-94); Mean Platelet Volume 9 um3 (7.4-10.4); Red Blood Count 6.03 10^6/ul (4.0-5.4); Red Cell Distribution Width 16 % (10.5-15); White Blood Count 11.1 10^3/ul (3.5-10.8)
[2016-08-02 04:47] LABS: Add Diff/Slide Review? Slide Review Added; Comments Flag Yes
[2016-08-02] MEDS: Heparin VIAL(*) 5000 UNITS/ML VIAL (FIVE THOUSAND) SUBCUT SCH ×2 (04:55→16:33)
[2016-08-02 04:56] LABS: BUN/Creatinine Ratio 12.5 (8-20); Calcium 9.1 mg/dL (8.6-10.3); EGFR Non-African American 74.6 (>60); Potassium 4.2 mmol/L (3.5-5.0)
[2016-08-02] MEDS: Omeprazole CAP* 20 MG PO SCH ×2 (07:51→16:33)
[2016-08-02] MEDS: Acetaminophen TAB* 325 MG PO PRN (07:51)
[2016-08-02] MEDS: Aspirin Low Dose CHEW TAB* 81 MG PO SCH (07:52)
--- NOTE | 2016-08-02 09:04 | DCNOTE ---
Patient seen this morning. Says he is feeling well today. No fever or chills. No cough. Ambulating with walker, feels stronger and steady. On exam, RRR, s1 and s2 present, no m/g/r, abd soft, NTND, BS+, lungs CTA B/L, no w/r/r, no LE edema Will discharge home today off of anti-HTN medications. Will discharge with a few additional days of ABx. Will need close PCP f/u.
[2016-08-02] MEDS: cefTRIAXone VIAL(*) 1,000 MG in NS 0.9% 50 ML* 50 ML IVPB SCH (16:33)
[2016-08-02 16:34] VITALS: BP 135/63
--- NOTE | 2016-08-03 05:20 | DS ---
CC: Dr. Nathaniel Wilson * DISCHARGE SUMMARY: DATE OF ADMISSION: 07/28/16 DATE OF DISCHARGE: 08/02/16 PRIMARY CARE PHYSICIAN: Dr. Nathaniel Wilson. PRINCIPAL DISCHARGE DIAGNOSES: 1. Community-acquired pneumonia. 2. Basilar artery stenosis. SECONDARY DIAGNOSES: 1. Hypertension. 2. GERD. 3. Hiatal hernia. 4. Possible PMR. DISCHARGE MEDICATIONS REGIMEN: 1. Cefpodoxime 200 mg by mouth 2 times daily. 2. Omeprazole 40 mg by mouth 2 times daily. 3. Calcium carbonate and vitamin D 1 tablet by mouth daily. 4. Multivitamin 1 tablet by mouth daily. 5. Aspirin 81 mg by mouth daily. STUDIES DURING HOSPITALIZATION: 1. CT of the brain, impression: No acute intracranial pathology, chronic small vessel ischemic changes. 2. Chest x-ray, impression: There is possibly a small amount of atelectasis to the lateral left lung base but no definite acute cardiopulmonary abnormalities. 3. Screening orbit x-ray, impression: No radiopaque foreign body has been identified. 4. MRI of the brain without contrast, impression: No MRI findings of acute territorial infarction. Findings are most consistent with chronic microvascular disease and age appropriate involutional changes. 5. MRI of the head, impression: High-grade stenosis of the proximal segment of the basilar artery estimated up to 90%, associated hyperperfusion of the bilateral posterior cerebral arteries, the right posterior cerebral artery supplied primarily by a right posterior communicating artery and the left posterior cerebral artery supplied primarily by the P1 segment from the posterior circulation. 6. MRA of the neck, impression: Internal carotid artery within the neck are grossly unremarkable with no significant stenosis, dominant right vertebral artery is noted. 7. Transthoracic echocardiogram, impression: Mild concentric LVH observed, estimated ejection fraction of 55% to 60%, left ventricular diastolic filling pattern consistent with pseudonormalization. Left atrium was moderately dilated. Systolic excursion of the aortic valve cusps is reduced, moderate aortic stenosis, trace mitral regurgitation, trace tricuspid regurgitation, There is no significant pericardial effusion. HISTORY OF PRESENT ILLNESS AND HOSPITAL SUMMARY: Please see the full history and physical by YEIMY Andrade for full details. Briefly, Mr. Chavez is an 86 -year- old man with past medical history as above, who presented to the hospital with weakness and dizziness as well as some headache and nausea, these symptoms came out after the patient was working out in the sun all day. He was brought to the hospital and these symptoms were similar to the previous episode of pneumonia. He did have an elevated white blood cell count and developed a low-grade fever. During the admission he was started on antibiotics, over the following days he continued to have some symptoms of nausea and dizziness and had difficulty ambulating. This prompted a workup of arteries in his head and neck, which showed significant basilar artery stenosis. Neurology was consulted. They recommended us going back on the patient's antihypertensive medications. Over the following days he had significant improvement in his symptoms. He had no further nausea or vomiting, was having good p.o. intake, was able to ambulate around the unit. His leukocytosis resolved. He will be discharged home off of any antihypertensive medications. He was encouraged to take his aspirin daily and he will complete a course of oral antibiotics at home for his possible pneumonia. TIME SPENT: Total time spent on this discharge 45 minutes. This is a summary of the hospitalization. Please see the full medical record for further details. [id number]/[facility] #: [id number] LAMIN
== END 2016-08-02 16:20 | disposition home or self-care (01) | DRG 194 ==
LOC: ED 06:48 → MED 11:28 → OBSVTOIN 07-29 08:01
PROVIDERS: ADMIT Internal Medicine; ATTEND Hospitalist
PROC: 3E0234Z Introduction of Serum, Toxoid and Vaccine into Muscle, Percutaneous Approach (ICD-10-PCS; principal; 2016-07-30)
DX: J18.9 Pneumonia, unspecified organism (principal); J98.11 Atelectasis; E87.1 Hypo-osmolality and hyponatremia; I10 Essential (primary) hypertension; K21.9 Gastro-esophageal reflux disease without esophagitis; M35.3 Polymyalgia rheumatica; M19.90 Unspecified osteoarthritis, unspecified site; R40.2412 Glasgow coma scale score 13-15, at arrival to emergency department; R53.1 Weakness; R42 Dizziness and giddiness; I65.1 Occlusion and stenosis of basilar artery; I08.3 Combined rheumatic disorders of mitral, aortic and tricuspid valves; Z87.01 Personal history of pneumonia (recurrent); Z81.1 Family history of alcohol abuse and dependence; Z83.2 Family history of diseases of the blood and blood-forming organs and certain disorders involving the immune mechanism; Z82.49 Family history of ischemic heart disease and other diseases of the circulatory system; Z87.891 Personal history of nicotine dependence; Z23 Encounter for immunization; Z79.82 Long term (current) use of aspirin
CPT/HCPCS: 36415; 70030; 70450; 70544; 70547; 70551; 71020; 80048; 80053; 80061; 81003; 81015; 82550; 83605; 83735; 83880; 84145; 84443; 84484; 85025; 86140; 87040; 87899; 90732; 93005; 93306; 94760; A9270-GY; G0378; J0456; J0696; J1644; J2405

== ENCOUNTER 2016-08-30 10:15 | Day surgery (SDC) | payer MEDICARE ==
[~2016-08-30 10:15] MED LIST: Acetaminophen TAB* 325 MG PO PRN; Buffered Lidocaine 0.9% SYRIN* 5 ML/SYR SYRINGE INTRADERM ONE
[2016-08-30] MEDS ORDERED: Midazolam* 1 MG/ML 2 ML VIAL (2 MG) ONE (11:48)
[2016-08-30] MEDS ORDERED: fentaNYL* 50 MCG/ML 2 ML VIAL (100 MCG VIAL) ONE (11:48)
[2016-08-30] MEDS ORDERED: Flurbiprofen 0.03% OPTH.SOL* 2.5 ML BTL ONE (13:29)
[2016-08-30] MEDS ORDERED: Buffered Lidocaine 0.9% SYRIN* 5 ML/SYR SYRINGE ONE (13:29)
[2016-08-30] MEDS ORDERED: Lidocaine 2% EPI 1:200000 MPF* 20 ML VIAL ONE (13:29)
[2016-08-30] MEDS ORDERED: Proparacaine 0.5% OPHTH.SOL* 15 ML BTL ONE (13:29)
[2016-08-30] MEDS ORDERED: acetaZOLAMIDE TAB* 250 MG ONE (13:29)
[2016-08-30] MEDS ORDERED: Lidocaine 1% MPF* 2 ML VIAL ONE (13:29)
[2016-08-30] MEDS ORDERED: Cyclopentolate 1% OPTH.SOL* 2 ML BTL ONE (13:29)
[2016-08-30] MEDS ORDERED: Povidone Iodine 5% OPTH* 30 ML BTL ONE (13:29)
[2016-08-30] MEDS ORDERED: Neomycin/Polymy/Dex OPTH.SUSP* MAXITROL 0.1% 5 ML ONE (13:29)
[2016-08-30] MEDS ORDERED: Phenylephrine 2.5% OPTH.SOL* 2 ML BTL ONE (13:29)
[2016-08-30 13:45] VITALS: BP 123/60
--- NOTE | 2016-08-31 02:28 | OP ---
DATE OF OPERATION: 08/30/16 - [facility] DATE OF : 34 SURGEON: Huber Lopez MD PREOPERATIVE DIAGNOSIS: Cataract, right eye. POSTOPERATIVE DIAGNOSIS: Cataract, right eye. OPERATIVE PROCEDURE: Phacoemulsification, right eye with IOL. DESCRIPTIO OF PROCEDURE: The patient was brought to the operating room after being given 1/2% Alcaine with epinephrine drops in the preoperative area. The eye was prepped and draped in the usual sterile fashion. Sterile drape and eyelid speculum were placed. Again, topical 1/2% Alcaine with epinephrine was given. A paracentesis incision was made at the 9 o'clock position with the No.75 blade. Clear cornea incision 2.2 x 2.2-mm was created at the 12 o'clock position starting at the anterior limbus using the 2.2-mm keratome. The anterior chamber was irrigated with 0.4 mL of 1% non-preservative intracameral lidocaine and filled with DisCoVisc. A capsulorrhexis was completed using the cystotome and the Utrata forceps. Hydrodissection was performed with balanced salt solution. The lens nucleus was removed with the Phacoemulsification handpiece without incident. Cortex was removed with the irrigation-aspiration handpiece. The capsular bag was re-inflated using DisCoVisc and an SN60WF 19.5 implant was inserted with the shooter. The irrigation-aspiration handpiece was used to remove all residual DisCoVisc. The eye was refilled with balanced salt solution and the wound checked and found to be watertight. Topical Maxitrol drops were given. [id number]/[facility] #: [id number] [facility]
== END 2016-08-30 14:01 | disposition home or self-care (01) ==
LOC: OREAST 10:15
PROVIDERS: ATTEND Specialist
DX: H25.811 Combined forms of age-related cataract, right eye (principal); I10 Essential (primary) hypertension; I65.1 Occlusion and stenosis of basilar artery
CPT/HCPCS: A9270-GY; J2250; J3010; V2632

== ENCOUNTER 2016-09-06 09:19 | Day surgery (SDC) | payer MEDICARE ==
[2016-09-06] MEDS ORDERED: Midazolam* 1 MG/ML 2 ML VIAL (2 MG) ONE (11:23)
[2016-09-06 12:02] VITALS: BP 137/63
[2016-09-06] MEDS ORDERED: Neomycin/Polymy/Dex OPTH.SUSP* MAXITROL 0.1% 5 ML ONE (14:46)
[2016-09-06] MEDS ORDERED: Phenylephrine 2.5% OPTH.SOL* 2 ML BTL ONE (14:46)
[2016-09-06] MEDS ORDERED: Lidocaine 1% MPF* 2 ML VIAL ONE (14:46)
[2016-09-06] MEDS ORDERED: acetaZOLAMIDE TAB* 250 MG ONE (14:46)
[2016-09-06] MEDS ORDERED: Buffered Lidocaine 0.9% SYRIN* 5 ML/SYR SYRINGE ONE (14:46)
[2016-09-06] MEDS ORDERED: Proparacaine 0.5% OPHTH.SOL* 15 ML BTL ONE (14:46)
[2016-09-06] MEDS ORDERED: Cyclopentolate 1% OPTH.SOL* 2 ML BTL ONE (14:46)
[2016-09-06] MEDS ORDERED: Povidone Iodine 5% OPTH* 30 ML BTL ONE (14:46)
[2016-09-06] MEDS ORDERED: Lidocaine 2% EPI 1:200000 MPF* 20 ML VIAL ONE (14:46)
[2016-09-06] MEDS ORDERED: Flurbiprofen 0.03% OPTH.SOL* 2.5 ML BTL ONE (14:46)
--- NOTE | 2016-09-07 08:29 | OP ---
DATE OF OPERATION: 09/06/16 [facility] DATE OF : 34 SURGEON: Huber Lopez MD PREOPERATIVE DIAGNOSIS: Cataract, left eye. POSTOPERATIVE DIAGNOSIS: Cataract, left eye. OPERATIVE PROCEDURE: Phacoemulsification, left eye with IOL. DESCRIPTION OF PROCEDURE: The patient was brought to the operating room after being given 1/2% Alcaine with epinephrine drops in the preoperative area. The eye was prepped and draped in the usual sterile fashion. Sterile drape and eyelid speculum were placed. Again, topical 1/2% Alcaine with epinephrine was given. A paracentesis incision was made at the 3 o'clock position with the No.75 blade. Clear cornea incision 2.2 x 2.2-mm was created at the 6 o'clock position starting at the anterior limbus using the 2.2-mm keratome. The anterior chamber was irrigated with 0.4 mL of 1% non-preservative intracameral lidocaine and filled with DisCoVisc. A capsulorrhexis was completed using the cystotome and the Utrata forceps. Hydrodissection was performed with balanced salt solution. The lens nucleus was removed with the Phacoemulsification handpiece without incident. Cortex was removed with the irrigation-aspiration handpiece. The capsular bag was re-inflated using DisCoVisc and an [id number] 20 implant was inserted with the shooter. The irrigation-aspiration handpiece was used to remove all residual DisCoVisc. The eye was refilled with balanced salt solution and the wound checked and found to be watertight. Topical Maxitrol drops were given. [id number]/[facility] #: [id number] [facility]NER[facility]
== END 2016-09-06 12:15 | disposition home or self-care (01) ==
LOC: OREAST 09:19
PROVIDERS: ATTEND Specialist
DX: H25.812 Combined forms of age-related cataract, left eye (principal); I10 Essential (primary) hypertension; I65.1 Occlusion and stenosis of basilar artery
CPT/HCPCS: A9270-GY; J2250; V2632

== ENCOUNTER 2016-09-08 11:28 | Emergency (ER) | payer MEDICARE ==
--- NOTE | 2016-09-08 12:31 | UC ---
Lower Extremity/Ankle HPI - History of Current Complaint Chief Complaint: EDExtremityLower Stated Complaint: LT LEG SWELLING / PAIN Time Seen by Provider: 09/08/16 11:40 Pain Intensity: 0 - Allergies/Home Medications Allergies/Adverse Reactions: Allergies Allergy/AdvReac Type Severity Reaction Status Date / Time No Known Allergies Allergy Verified 09/06/16 10:02 PMH/Surg Hx/FS Hx/Imm Hx - Surgical History Surgical History: Yes Surgery Procedure, Year, and Place: 2000 LAP CRISTIAN FUNDOPLICATION [facility]. 2000 L HIP FRACTURE [facility]. 07/29 RIGHT INGUINAL HERNAI REPAIR - Family History Known Family History: Positive: Other - aneurysm - Social History Alcohol Use: None Substance Use Type: None Smoking Status (MU): Former Smoker Amount Used/How Often: light smoker for approx 6 yrs When Did the Patient Quit Smoking/Using Tobacco: quit when pt was 27 yrs old - Immunization History Most Recent Influenza Vaccination: Not this year Most Recent Pneumonia Vaccination: Never Physical Exam Vital Signs: Initial Vital Signs Temp 97.6 F 09/08/16 11:30 Pulse 67 09/08/16 11:30 Resp 20 09/08/16 11:30 BP 128/61 09/08/16 11:30 Pulse Ox 96 09/08/16 11:30
--- NOTE | 2016-09-08 12:32 | ED ---
Lower Extremity - HPI Summary HPI Summary: 73 male presents with complaints of left upper leg pain that began last night and got much worse today 09/08. Patient states it is swollen, hard and painful with movement or when bearing weight/walking. Denies any known recent trauma or injury. Was seen at PCP who suggested he be seen in ED for further evaluation. Patient had hip surgery 10 years ago for a fractured hip, PCP thought it had to do with that. Denies any medication use. States pain feels like pressure and aching. Denies redness or bruising. No other complaints or injuries. NO numbness or tingling. No pain in groin, normal genitalia. Denies SOB, no chest pain. Non smoker, no recent travel. Denies nausea or vomiting. Has history of DVT. - History of Current Complaint Chief Complaint: EDExtremityLower Stated Complaint: LT LEG SWELLING / PAIN Time Seen by Provider: 09/08/16 11:40 Hx Obtained From: Patient, Family/Physicians Assistant - Mechanism Of Injury: Unknown Onset of Pain: Days - 2 Onset/Duration: Days - 2 Severity Initially: Severe Severity Currently: Mild Pain Intensity: 3 Pain Scale Used: 0-10 Numeric Timing: Intermittent - with movement and walking Location: Is Discrete @ - left thigh Character Of Pain: Sharp, Aching, Throbbing Associated Signs And Symptoms: Positive: Swelling Aggravating Factor(s): Standing, Ambulation, Weight Bearing Alleviating Factor(s): Rest, Elevation Able to Bear Weight: No - due to pain, was ablle prior to arrival without choice - Risk Factors Gout Risk Factors: Age Over 40, Male, Hypertension DVT Risk Factors: Prior DVT Septic Arthritis Risk Factor: Negative - Allergies/Home Medications Allergies/Adverse Reactions: Allergies Allergy/AdvReac Type Severity Reaction Status Date / Time No Known Allergies Allergy Verified 09/06/16 10:02 PMH/Surg Hx/FS Hx/Imm Hx Endocrine/Hematology History: Reports: Hx Anemia - iron def., taking supplement Cardiovascular History: Reports: Hx Coronary Artery Disease, Hx Hypertension - no longer taking BP medication, Other Cardiovascular Problems/Disorders - mild aortic stenosis Denies: Hx Pacemaker/ICD Respiratory History: Reports: Other Respiratory Problems/Disorders - RECENT PNEUMONIA 07/2016, and also in 2016, DR. DELMER CLARK GI History: Reports: Hx Gastroesophageal Reflux Disease - FUNDOPLICATION SURGERY 2000, ON NEXIUM. History: Reports: Other Problems/Disorders - BPH Musculoskeletal History: Reports: Hx Arthritis Sensory History: Reports: Hx Cataracts, Hx Contacts or Glasses, Hx Hearing Aid Opthamlomology History: Reports: Hx Cataracts, Hx Contacts or Glasses Neurological History: Reports: Hx Headaches - MORRISON once a day, "poor circulation back of head", Other Neuro Impairments/Disorders - basilar artery occlusion & stenosis Psychiatric History: Denies: Hx Panic Disorder - Surgical History Surgery Procedure, Year, and Place: [place] [facility] [place] [facility] [place] RIGHT INGUINAL HERNAI REPAIR Hx Anesthesia Reactions: No - Immunization History Immunizations Up to Date: Yes Infectious Disease History: No Infectious Disease History: Denies: Traveled Outside the [place] in Last 30 Days - Family History Known Family History: Positive: None, Other - aneurysm - Social History Alcohol Use: None Hx Substance Use: No Substance Use Type: Reports: None Smoking Status (MU): Former Smoker Amount Used/How Often: light smoker for approx 6 yrs Review of Systems Constitutional: Negative Cardiovascular: Negative Respiratory: Negative Gastrointestinal: Negative Positive: Arthralgia - left leg , Myalgia, Decreased ROM, Edema Skin: Negative Neurological: Negative All Other Systems Reviewed And Are Negative: Yes Physical Exam Triage Information Reviewed: Yes Vital Signs On Initial Exam: Initial Vitals Temp Pulse Resp BP Pulse Ox 97.6 F 67 20 128/61 96 09/08/16 11:30 09/08/16 11:30 09/08/16 11:30 09/08/16 11:30 09/08/16 11:30 Vital Signs Reviewed: Yes Appearance: Positive: Well-Appearing, Well-Nourished, Pain Distress - moderate with movement or weight bearing. however laying comortable minimal pain when resting and in stretcher Skin: Positive: Warm, Skin Color Reflects Adequate Perfusion, Dry, Other - very firm to touch upper entire thigh of left LE. no erythema, ecchymosis, obvious deformity or signs of trauma, step off or crepitus. not hot to touch.. Negative : Cold, Numb, Cyanosis @, Diaphoretic, Pale Head/Face: Positive: Normal Head/Face Inspection Eyes: Positive: Conjunctiva Clear ENT: Positive: Hearing grossly normal Neck: Positive: Supple, Nontender, No Lymphadenopathy Respiratory/Lung Sounds: Positive: Clear to Auscultation, Breath Sounds Present. Negative: Rales, Rhonchi, Wheezes Cardiovascular: Positive: Normal, RRR, Pulses are Symmetrical in both Upper and Lower Extremities - pedal weak and difficult to palpate however dorsalis pedis 2 + b/l. Negative: Murmur, Rub, Leg Edema Left, Leg Edema Right Bowel Sounds: Positive: Present Musculoskeletal: Positive: Limited @ - left leg with flexion of hip and knee due to pain and swelling, Pain @ - left thigh with movement, Edema Left, Other - 5 P's not present for compartment syndrome rule out Neurological: Positive: Normal, Sensory/Motor Intact - sensation intact, Alert, Oriented to Person Place, Time, CN Intact II-III, Reflexes Intact, NV Bundle Intact Distally, Unable to Assess Gait - due to pain in left leg Psychiatric: Positive: Affect/Mood Appropriate Diagnostics - Vital Signs Vital Signs Temp Pulse Resp BP Pulse Ox 09/08/16 12:00 60 115/48 94 09/08/16 11:47 98 F 64 16 149/66 95 09/08/16 11:45 149/66 09/08/16 11:30 97.6 F 67 20 128/61 96 - Laboratory Lab Statement: Any lab studies that have been ordered have been reviewed, and results considered in the medical decision making process. - Radiology femur Xray Interpretation: No Acute Changes Radiology Interpretation Completed By: Radiologist - CT lower extremity CT Interpretation: Positive (See Comments) - ILL-DEFINED AREA OF INCREASED DENSITY ADJACENT TO THE ANTEROLATERAL ASPECT OF THE MID DIAPHYSIS OF THE FEMUR SUSPICIOUS FOR A HEMATOMA LESS LIKELY SOFT TISSUE DENSITY MASS. RECOMMEND CLINICAL FOLLOW-UP TO RESOLUTION. IF THIS DOES NOT RESOLVE RECOMMEND AN MRI OF THE THIGH FOR FURTHER EVALUATION. CT Interpretation Completed By: Radiologist - Ultrasound No standard instances Ultrasound Interpretation: No Acute Changes - NO LEFT LOWER EXTREMITY DEEP VEIN THROMBOSIS Ultrasound Interpretation Completed By: Radiologist Lower Extremity Course/Dx - Course Course Of Treatment: patient was comfortable and did not want pain management at this time. obtained U/S to rule out DVT and was negative. X-ray and CT which showed possible hematoma of left thigh area. Dr Toledo also evaluated patient and is aware with current plan of action. Tylenol for pain management and follow up with orthopedics on Sunday. Not on blood thinners. Aware of worsening signs and symptoms. Rest and do not bear weight. Elevate. ice - Diagnoses Differential Diagnosis/HQI/PQRI: Positive: Contusion, Dislocation, DVT, Fracture (Closed), Gout, Infection, Sprain, Strain, Tendonitis Provider Diagnoses: Hematoma of left thigh - Physician Notifications Discussed Care Of Patient With: Dr Toledo Discharge - Discharge Plan Condition: Stable Disposition: HOME Patient Education Materials: Leg Pain (ED), Hematoma (ED) Referrals: Nathaniel Wilson MD [Primary Care Provider] - Delia Claudio MD [Medical Doctor] - Additional Instructions: Please make an appointment to follow up with orthopedics and primary care for further evaluation and imaging. If symptoms worsen or new symptoms develop such as increased pain, pale colored skin or redness please seek medical attention promptly. Rest, elevate and take tylenol for pain.
--- NOTE | 2016-09-08 14:13 | RAD ---
INDICATION: Left femur swelling and pain. COMPARISON: Comparison is made with a prior x-ray study of the left hip from May 22, 2006. TECHNIQUE: 2 views of the left femur were obtained. FINDINGS: The patient is status post post remote operative reduction and internal fixation of an intertrochanteric fracture. Note is made of a femoral head nail and sideplate transfixed with multiple screws. The fracture is healed. The bones are in normal alignment. There is soft tissue swelling present along the lateral aspect of the thigh at the level of the mid and distal diaphysis of the femur. No focal osseous abnormality is seen. IMPRESSION: POSTSURGICAL CHANGES AND SOFT TISSUE SWELLING. NO FOCAL OSSEOUS ABNORMALITY IS SEEN.
--- NOTE | 2016-09-08 14:49 | RAD ---
HISTORY: Left lower extremity pain COMPARISONS: None relevant TECHNIQUE: Multiple transverse and longitudinal ultrasound images were obtained of the left lower extremity from the level of the common femoral vein inferiorly through to the infrapopliteal veins using grayscale, color Doppler, and spectral Doppler imaging with and without compression and with augmentation. Comparison images were obtained of the contralateral common femoral vein. FINDINGS: VEINS: The venous system of the left lower extremity is compressible throughout its course, with normal flow on color Doppler imaging and normal response to augmentation on spectral Doppler imaging. Reflux is noted into the popliteal vein. SOFT TISSUES: Unremarkable. OTHER FINDINGS: None. IMPRESSION: NO LEFT LOWER EXTREMITY DEEP VEIN THROMBOSIS
--- NOTE | 2016-09-08 15:41 | RAD ---
INDICATION: Left thigh swelling and pain. COMPARISON: Comparison is made of a fracture study of the left femur from September 08, 2016. TECHNIQUE: Contiguous axial sections were obtained of the left thigh. Images were reconstructed in the sagittal and coronal planes. FINDINGS: There is a focal ill-defined area of increased density present adjacent to the anterolateral aspect of the mid diaphysis of the femur in the quadriceps muscle. The borders are not well-defined. This is nonspecific finding likely represents hematoma although a soft tissue mass cannot be excluded. This appears to measure at least 8.8 x 5.8 x 4.2 cm. Postsurgical changes are noted in the proximal humeral left femur from a prior intertrochanteric fracture reduction. The fracture is no longer visualized. No significant focal osseous abnormality is seen. IMPRESSION: ILL-DEFINED AREA OF INCREASED DENSITY ADJACENT TO THE ANTEROLATERAL ASPECT OF THE MID DIAPHYSIS OF THE FEMUR SUSPICIOUS FOR A HEMATOMA LESS LIKELY SOFT TISSUE DENSITY MASS. RECOMMEND CLINICAL FOLLOW-UP TO RESOLUTION. IF THIS DOES NOT RESOLVE RECOMMEND AN MRI OF THE THIGH FOR FURTHER EVALUATION.
[2016-09-08 16:21] VITALS: BP 136/55
== END 2016-09-08 16:26 | disposition home or self-care (01) ==
LOC: ED 11:28
DX: S70.12XA Contusion of left thigh, initial encounter (principal); M79.605 Pain in left leg; Z87.891 Personal history of nicotine dependence
CPT/HCPCS: 99282

== ENCOUNTER 2017-10-05 10:05 | Emergency (ER) | payer MEDICARE ==
[2017-10-05] MEDS ORDERED: Labetalol IV* 5 MG/ML 20 ML VIAL IV PUSH ONE (10:27)
--- NOTE | 2017-10-05 10:35 | ED ---
Hypertension - HPI Summary HPI Summary: This is scribe [facility] documenting for attending Evangelista Toledo. Pt is an 87 y/o M c/o HTN and MORRISON onset ~3 days ago. He notes that he has measured his BP at home as high as "180" but sits around "160" usually. Per triage, pain of MORRISON is rated a 4/10. Assoc. Sx: MORRISON, back pain. Denies: SOB. Patient has a Hx of HTN and notes regulating it with the medication, Verapamil. Per personal development educator, the patient fell last week and has associated upper back pain that radiates to R-side of chest sometimes. I, Dr. Toledo, personally performed the services described in this documentation as scribed in my presence and it is both accurate and complete. - History of Current Complaint Chief Complaint: EDHypertension Stated Complaint: HIGH BP,DIZZINESS Time Seen by Provider: 10/05/17 10:17 Hx Obtained From: Patient Onset/Duration: Started Days Ago - 3 days Timing: Intermittent Aggravating Factor(s): Nothing Alleviating Factor(s): Other - POS: medication. Associated Signs & Symptoms: Headaches, Other: - NEG: SOB POS: back pain - Allergies/Home Medications Allergies/Adverse Reactions: Allergies Allergy/AdvReac Type Severity Reaction Status Date / Time No Known Allergies Allergy Verified 10/05/17 10:15 PMH/Surg Hx/FS Hx/Imm Hx Endocrine/Hematology History: Reports: Hx Anemia - iron def., taking supplement Denies: Hx Diabetes Cardiovascular History: Reports: Hx Hypertension - no longer taking BP medication, Other Cardiovascular Problems/Disorders - mild aortic stenosis Denies: Hx Angina, Hx Coronary Artery Disease, Hx Hypercholesterolemia, Hx Myocardial Infarction, Hx Pacemaker/ICD Respiratory History: Reports: Other Respiratory Problems/Disorders - RECENT PNEUMONIA 07/2016, and also in 2016, DR. DOWELL AWARE Denies: Hx Asthma, Hx Chronic Obstructive Pulmonary Disease (COPD) GI History: Reports: Hx Gastroesophageal Reflux Disease - FUNDOPLICATION SURGERY 2000, ON NEXIUM. 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 2000 L HIP FRACTURE [facility] [place]. 07/29 RIGHT INGUINAL HERNAI REPAIR Hx Anesthesia Reactions: No Infectious Disease History: No Infectious Disease History: Denies: Traveled Outside the [place] in Last 30 Days - Family History Known Family History: Positive: Other - aneurysm - Social History Occupation: Retired Lives: With Family Alcohol Use: None Hx Substance Use: No Substance Use Type: Reports: None Smoking Status (MU): Former Smoker Amount Used/How Often: light smoker for approx 6 yrs Review of Systems Negative: Shortness Of Breath Positive: Other - POS: back pain Positive: Headache All Other Systems Reviewed And Are Negative: Yes Physical Exam - Summary Physical Exam Summary: VITAL SIGNS: Reviewed. GENERAL: Patient is an obese Male who is lethargic, unable to answer questions in the stretcher. Patient is not in any acute respiratory distress. HEAD AND FACE: No signs of trauma. No ecchymosis, hematomas or skull depressions. No sinus tenderness. EYES: Pupils are "pinpoint" EARS: Hearing grossly intact. Ear canals and tympanic membranes are within normal limits. MOUTH: Oropharynx within normal limits. NECK: Supple, trachea is midline, no adenopathy, no JVD, no carotid bruit, no c- spine tenderness, neck with full ROM. CHEST: Symmetric, no tenderness at palpation LUNGS: Clear to auscultation bilaterally. No wheezing or crackles. CVS: Regular rate and rhythm, S1 and S2 present, no murmurs or gallops appreciated. ABDOMEN: Soft, non-tender. No signs of distention. No rebound no guarding, and no masses palpated. Bowel sounds are normal. EXTREMITIES: RLE posterior erythema, swelling and warm. NEURO: Alert and oriented x 3. No acute neurological deficits. Speech is normal and follows commands. SKIN: Dry and warm GCS: 14 Triage Information Reviewed: Yes Vital Signs On Initial Exam: Initial Vitals Temp Pulse Resp BP Pulse Ox 97.3 F 74 16 163/92 96 10/05/17 10:13 10/05/17 10:13 10/05/17 10:13 10/05/17 10:13 10/05/17 10:13 Vital Signs Reviewed: Yes Diagnostics - Vital Signs Vital Signs Temp Pulse Resp BP Pulse Ox 10/05/17 10:13 97.3 F 74 16 163/92 96 - Laboratory Result Diagrams: 10/05/17 11:01 10/05/17 11:01 Lab Statement: Any lab studies that have been ordered have been reviewed, and results considered in the medical decision making process. - Radiology CXR Xray Interpretation: Positive (See Comments) - IMPRESSION: Stigmata of chronic obstructive pulmonary disease with probable associated interstitial fibrosis. Relative low lung volumes for this patient compared with the prior exam with mild subsegmental atelectasis. Cardiomegaly without evidence for pulmonary edema. Radiology Interpretation Completed By: Radiologist - Report has been reviewed by ED provider and Radiologist. - EKG 1024 Cardiac Rate: NL - 69 bpm EKG Rhythm: Sinus Rhythm EKG Interpretation: Hyper QT waves V2-V3, evidence for LVH, nml axis Re-Evaluation - Re-Evaluation First Eval Re-Evaluation Time: 11:30 Change: Improved Comment: Patient reports feeling better and BP has been lowered to 129/69 Hypertension Course/Dx - Course Assessment/Plan: This patient is an 87-year-old male who presents to the emergency department with a chief complaint of having headaches and increased blood pressure. Patient reports that his blood pressure is more than 160/90. Patient has past medical history significant for community acquired pneumonia, hypertension, GERD, history of chronic use of esterase, hyponatremia, polymyalgia rheumatica, and dizziness. Blood test results shows a white blood cell count of 36.3, hemoglobin of 13 hematocrit 43 MCV is 66. 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 He is following with Dr. Moulton from oncology for the seizures. Creatinine is 1.26 which is improved from a previous on September 04, 2017. Alkaline phosphatase is 159. Initially I decided to give labetalol for better control the blood pressure however after approximately 15 minutes while the patient was lying in the stretcher the blood pressure is only 126/69. Subsequent blood pressures continues to be in the 120s over 60s range. Therefore I will discharge the patient home with follow-up with the primary care physician and Dr. Moulton. I discussed all the findings and test results with the patient. Patient was instructed to return to the emergency room immediately if any of the symptoms return or worsens. Plan of care was discussed with the patient and understands and agrees. All questions were answered at patient satisfaction. There were no further complaints or concerns. Lung exam before discharge: CTA B/L. Good air exchange. No wheezing or crackles heard. CVS: S1 and S2 present. No murmurs appreciated. Patient is alert and oriented x 3. Patient is hemodynamically stable. Patient will be discharged home with follow up PCP in the next 2-3 days - Diagnoses Differential Diagnosis/HQI PQRI: Hypertension, Hypertensive Crisis, Hypertensive Urgency Provider Diagnoses: Uncontrolled hypertension, Leukocytosis Discharge - Sign-Out/Discharge Documenting (check all that apply): Patient Departure - Discharge Plan Condition: Stable Disposition: HOME Patient Education Materials: Chronic Hypertension (ED) Referrals: Nathaniel Wilson MD [Primary Care Provider] - 3 Days Additional Instructions: FOLLOW UP WITH YOUR PRIMARY CARE PROVIDER WITHIN ONE WEEK FOR HIGH BLOOD PRESSURE NOTED TODAY. RETURN TO THE ED FOR ANY WORSENING OR NEW SYMPTOMS. - Billing Disposition and Condition Condition: STABLE Disposition: Home Attestation Statement Scribe Attestation: I, Dr. Toledo personally performed the services described in this documentation as scribed in my presence and it is both accurate and complete.
--- NOTE | 2017-10-05 10:53 | RAD ---
Indication: Hypertension. Dizziness. Mild aortic stenosis. Previous pneumonia. Comparison: June 05, 2017 Technique: Upright AP 1030 hours Report: Moderately severe prominence of the interstitial markings as on the prior exam. Decreased lung volume compared with the prior exam with associated mild crowding of the pulmonary markings and minimal subsegmental atelectasis. No compelling alveolar inflammatory infiltrate, suspicious focal pulmonary lesion, pleural effusion, pneumothorax. Cardiomegaly. Unremarkable central pulmonary vasculature. Healed LEFT fifth rib fracture posteriorly. IMPRESSION: #. Stigmata of chronic obstructive pulmonary disease with probable associated interstitial fibrosis. #. Relative low lung volumes for this patient compared with the prior exam with mild subsegmental atelectasis. #. Cardiomegaly without evidence for pulmonary edema.
[2017-10-05 11:19] LABS: Hematocrit 43 % (42-52); Mean Corpuscular HGB Conc 31 g/dl (31-36); Mean Corpuscular Hemoglobin 20 pg (27-31); Mean Corpuscular Volume 66 fL (80-94); Mean Platelet Volume 8.6 um3 (7.4-10.4); Platelet Count 508 10^3/ul (150-450); Red Blood Count 6.48 10^6/ul (4.00-5.40); Red Cell Distribution Width 20 % (10.5-15); White Blood Count 36.3 10^3/ul (3.5-10.8)
[2017-10-05 11:44] LABS: EGFR Non-African American 54.4 (>60)
[2017-10-05 12:12] LABS: ABS Basophils 0.3 10^3/ul (0-0.2); ABS Eosinophils 0.6 10^3/ul (0-0.6); ABS Lymphocytes 1.7 10^3/ul (1.0-4.8); ABS Monocytes 2.8 10^3/ul (0-0.8); ABS Neutrophils 30.8 10^3/ul (1.5-7.7)
[2017-10-05 12:16] LABS: ABS Basophils 1.8 10^3/ul (0-0.2); ABS Neutrophils 28.7 10^3/ul (1.5-7.7); Monocytes % 6 % (0-7)
[2017-10-05 12:36] VITALS: BP 145/76
== END 2017-10-05 12:37 | disposition home or self-care (01) ==
LOC: ED 10:05
DX: I10 Essential (primary) hypertension (principal); D72.829 Elevated white blood cell count, unspecified; I51.7 Cardiomegaly; R51 Headache; K21.9 Gastro-esophageal reflux disease without esophagitis; Z87.891 Personal history of nicotine dependence; D47.3 Essential (hemorrhagic) thrombocythemia
CPT/HCPCS: 36415; 71045; 80053; 83735; 84443; 84484; 85025; 85060; 93005; 99283

== ENCOUNTER 2017-10-13 21:01 | Emergency (ER) | payer MEDICARE ==
[2017-10-13 21:11] VITALS: BP 172/77
--- NOTE | 2017-10-13 21:21 | UC ---
Skin Complaint HPI - HPI Summary HPI Summary: injured left lower anterior leg on a fence post about one week ago---has had progressive redness swelling and pain - History of Current Complaint Chief Complaint: UCLowerExtremity Time Seen by Provider: 10/13/17 21:16 Stated Complaint: L LEG COMPLAINT Hx Obtained From: Patient Onset/Duration: Gradual Onset, Lasting Weeks - 1, Still Present Timing: Constant Onset Severity: Mild Current Severity: Moderate Location: Discrete - left lower leg Character: Swelling, Pain, Redness Aggravating Factor(s): Nothing Alleviating Factor(s): Nothing Associated Signs & Symptoms: Positive: Tenderness - Allergy/Home Medications Allergies/Adverse Reactions: Allergies Allergy/AdvReac Type Severity Reaction Status Date / Time No Known Allergies Allergy Verified 10/13/17 21:12 Home Medications: Home Medications Acetaminophen [Acetaminophen Extra Strength] 500 mg PO PRN 10/13/17 [History] Review of Systems Constitutional: Negative Skin: Negative, Other - open are arnterior lower leg Eyes: Negative ENT: Negative Respiratory: Negative Cardiovascular: Negative Gastrointestinal: Negative Genitourinary: Negative Motor: Negative Neurovascular: Negative Musculoskeletal: Negative, Edema, Myalgia Neurological: Negative Psychological: Negative Is Patient Immunocompromised?: No All Other Systems Reviewed And Are Negative: Yes PMH/Surg Hx/FS Hx/Imm Hx Previously Healthy: No - polycythema vera Cardiovascular History: Hypertension GI/ History: Gastroesophageal Reflux - Surgical History Surgical History: Yes Surgery Procedure, Year, and Place: 2000 LAP CRISTIAN FUNDOPLICATION [facility]. 2000 L HIP FRACTURE [facility]. 07/29 RIGHT INGUINAL HERNAI REPAIR - Family History Known Family History: Positive: None, Other - aneurysm - Social History Occupation: Retired Lives: With Family Alcohol Use: None Substance Use Type: None Smoking Status (MU): Former Smoker Amount Used/How Often: light smoker for approx 6 yrs When Did the Patient Quit Smoking/Using Tobacco: quit when pt was 27 yrs old - Immunization History Most Recent Influenza Vaccination: Not this year Most Recent Pneumonia Vaccination: Never Physical Exam Triage Information Reviewed: Yes Appearance: Well-Appearing, No Pain Distress, Well-Nourished Vital Signs: Initial Vital Signs Temp 98.5 F 10/13/17 21:06 Pulse 74 10/13/17 21:06 Resp 16 10/13/17 21:06 BP 172/77 10/13/17 21:06 Pulse Ox 97 10/13/17 21:06 Eye Exam: Normal ENT Exam: Normal Dental Exam: Normal Neck exam: Normal Neck: Positive: 1 Respiratory Exam: Normal Cardiovascular Exam: Normal Abdominal Exam: Normal Musculoskeletal Exam: Normal Musculoskeletal: Positive: Edema @ - left lower leg Neurological Exam: Normal Psychological Exam: Normal Skin Exam: Normal Skin: Positive: Other - skin avulsion left lower leg Course/Dx - Course Course Of Treatment: to [facility] ED by private car for further evaluation and treatment - Diagnoses Provider Diagnoses: cellulitis left lower leg Discharge - Sign-Out/Discharge Documenting (check all that apply): Patient Departure All imaging exams completed and their final reports reviewed: No Studies - Discharge Plan Condition: Stable Disposition: HOME Patient Education Materials: Cellulitis (ED) Referrals: Nathaniel Wilson MD [Primary Care Provider] - Additional Instructions: You are being discharged from the urgent care to go directly to the emergency department at [facility] for further treatment of you leg - Billing Disposition and Condition Condition: STABLE Disposition: Home
== END 2017-10-13 21:30 | disposition home or self-care (01) ==
LOC: UCEAST 21:01
DX: L03.116 Cellulitis of left lower limb (principal); I10 Essential (primary) hypertension; Z87.891 Personal history of nicotine dependence
CPT/HCPCS: 99212; G0463

== ENCOUNTER 2017-10-13 21:52 | Inpatient (IN) | payer MEDICARE ==
[2017-10-14] MEDS ORDERED: Cefepime 2 GM in Dextrose(*) 2 GM/50 ML BAG IV ONE (00:19)
[2017-10-14] MEDS ORDERED: NS 0.9% 1000 ML* 1,000 ML IV ONE ×2 (00:19→00:37)
[2017-10-14] MEDS ORDERED: Vancomycin(*) 1,250 MG in NS 0.9% 250 ML* 250 ML IVPB ONE (00:19)
[2017-10-14] MEDS ORDERED: metroNIDAZOLE IV 500 MG/100ML* 500 MG/100 ML BAG IVPB ONE (00:20)
[2017-10-14 02:06] LABS: ABS Basophils 0.5 10^3/ul (0-0.2); ABS Eosinophils 0.6 10^3/ul (0-0.6); ABS Monocytes 2.8 10^3/ul (0-0.8); ABS Neutrophils 31.5 10^3/ul (1.5-7.7); ABS Nucleated RBC 0 10^3/ul; Hematocrit 41 % (42-52); Hemoglobin 12.3 g/dl (14.0-18.0); Mean Corpuscular HGB Conc 30 g/dl (31-36); Mean Corpuscular Hemoglobin 20 pg (27-31); Mean Corpuscular Volume 66 fL (80-94); Mean Platelet Volume 8.6 um3 (7.4-10.4); Platelet Count 576 10^3/ul (150-450); Red Blood Count 6.23 10^6/ul (4.00-5.40); Red Cell Distribution Width 20 % (10.5-15); White Blood Count 37.2 10^3/ul (3.5-10.8)
[2017-10-14 02:55] LABS: Eosinophil % 1.5 % (0-6); Lymphocyte % 5.2 % (25-47); Nucleated Red Blood Cells % 0
--- NOTE | 2017-10-14 03:15 | ED ---
Skin Complaint - HPI Summary HPI Summary: Patient is an 87-year-old male presenting to the ED with with concern of left lower extremity erythema with the past week. He is currently being treated for polycythemia vera by Dr. Moulton. He states he has been otherwise healthy. Denies any fevers, sweats, chills. 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 The fence was very dirty, and he does not recall cleaning it right away. Over the past week the area became more red and indurated. He endorses now the area is very swollen very red, warm to the touch and is extending up just below the knee and just superiorly to the ankle with significant foot swelling and pitting edema. He endorses pain with ambulation, although mild. Painful to touch. He states he is feeling otherwise well. - History of Current Complaint Chief Complaint: EDExtremityLower Time Seen by Provider: 10/13/17 23:08 Stated Complaint: LT LEG SWELLING Hx Obtained From: Patient Onset/Duration: Started Hours Ago Skin Exposure Onset/Duration: Hours Ago Timing: Constant Onset Severity: Moderate Current Severity: Moderate Pain Intensity: 5 Pain Scale Used: 0-10 Numeric Skin Location: Discrete - left lower extremity erythema Character: Swelling, Pain, Redness Aggravating Symptom(s): Touch Alleviating Symptom(s): Nothing Associated Signs & Symptoms: Negative Related History: Trauma - Additional Pertinent History Primary Care Physician: [id number] - Allergy/Home Medications Allergies/Adverse Reactions: Allergies Allergy/AdvReac Type Severity Reaction Status Date / Time No Known Allergies Allergy Verified 10/13/17 21:12 PMH/Surg Hx/FS Hx/Imm Hx Previously Healthy: Yes Endocrine/Hematology History: Reports: Hx Anemia - iron def., taking supplement Denies: Hx Diabetes Cardiovascular History: Reports: Hx Hypertension, Other Cardiovascular Problems/ Disorders - mild aortic stenosis Denies: Hx Angina, Hx Coronary Artery Disease, Hx Hypercholesterolemia, Hx Myocardial Infarction, Hx Pacemaker/ICD Respiratory History: Reports: Other Respiratory Problems/Disorders - RECENT PNEUMONIA 07/2016, and also in 2016, DR. DOWELL AWARE Denies: Hx Asthma, Hx Chronic Obstructive Pulmonary Disease (COPD) GI History: Reports: Hx Gastroesophageal Reflux Disease - FUNDOPLICATION SURGERY 2000, ON NEXIUM. 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 2000 L HIP FRACTURE [facility]. 07/29 RIGHT INGUINAL HERNAI REPAIR Hx Anesthesia Reactions: No - Immunization History Date of Tetanus Vaccine: utd Date of Influenza Vaccine: fall 2016 Hx Pertussis Vaccination: No Immunizations Up to Date: Unable to Obtain/Confirm Infectious Disease History: No Infectious Disease History: Denies: Traveled Outside the [place] in Last 30 Days - Family History Known Family History: Positive: None, Other - aneurysm - Social History Occupation: Unemployed Lives: With Family Alcohol Use: None Hx Substance Use: No Substance Use Type: Reports: None Smoking Status (MU): Former Smoker Amount Used/How Often: light smoker for approx 6 yrs Review of Systems Constitutional: Negative Negative: Fever, Chills, Fatigue, Skin Diaphoresis Negative: Palpitations, Chest Pain Negative: Shortness Of Breath, Cough Genitourinary: Negative Positive: no symptoms reported, see HPI Negative: Arthralgia Positive: Other - erythema and warmth to the L lower ext Neurological: Negative All Other Systems Reviewed And Are Negative: Yes Physical Exam Triage Information Reviewed: Yes Vital Signs On Initial Exam: Initial Vitals Temp Pulse Resp BP Pulse Ox 97.6 F 70 15 187/75 96 10/13/17 22:08 10/13/17 22:08 10/13/17 22:08 10/13/17 22:08 10/13/17 22:08 Vital Signs Reviewed: Yes Appearance: Positive: Well-Appearing, Well-Nourished Skin: Positive: Warm, Skin Color Reflects Adequate Perfusion, Other - erythema and warmth to L lower ext Eyes: Positive: EOMI, HOA, Conjunctiva Clear Neck: Positive: Supple Respiratory/Lung Sounds: Positive: Clear to Auscultation, Breath Sounds Present Cardiovascular: Positive: RRR, Pulses are Symmetrical in both Upper and Lower Extremities Musculoskeletal: Positive: Normal, Strength/ROM Intact Neurological: Positive: Speech Normal Psychiatric: Positive: Normal, Affect/Mood Appropriate AVPU Assessment: Alert Diagnostics - Vital Signs Vital Signs Temp Pulse Resp BP Pulse Ox 10/14/17 02:18 18 151/68 10/14/17 02:00 69 11 94 10/14/17 01:47 71 13 151/84 95 10/14/17 01:17 69 24 157/79 94 10/14/17 01:00 69 19 95 10/14/17 00:47 67 24 161/73 94 10/14/17 00:17 68 19 161/81 95 10/14/17 00:00 68 15 95 10/13/17 23:51 24 10/13/17 23:47 71 23 178/87 96 10/13/17 22:08 97.6 F 70 15 187/75 96 - Laboratory Lab Results: Lab Results 10/14/17 10/14/17 10/14/17 Range/Units 00:56 00:56 00:56 WBC 37.2 H (3.5-10.8) 10^3/ul RBC 6.23 H (4.00-5.40) 10^6/ul Hgb 12.3 L (14.0-18.0) g/dl Hct 41 L (42-52) % MCV 66 L (80-94) fL MCH 20 L (27-31) pg MCHC 30 L (31-36) g/dl RDW 20 H (10.5-15) % Plt Count 576 H D (150-450) 10^3/ul MPV 8.6 (7.4-10.4) um3 Neut % (Auto) 84.7 H (38-83) % Lymph % (Auto) 5.2 L (25-47) % Arroyo % (Auto) 7.4 H (0-7) % Eos % (Auto) 1.5 (0-6) % Baso % (Auto) 1.2 (0-2) % Absolute Neuts (auto) 31.5 H (1.5-7.7) 10^3/ul Absolute Lymphs (auto) 2.0 (1.0-4.8) 10^3/ul Absolute Monos (auto) 2.8 H (0-0.8) 10^3/ul Absolute Eos (auto) 0.6 (0-0.6) 10^3/ul Absolute Basos (auto) 0.5 H (0-0.2) 10^3/ul Absolute Nucleated RBC 0 10^3/ul Nucleated RBC % 0 ESR Pending Sodium 136 (135-145) mmol/L Potassium 3.9 (3.5-5.0) mmol/L Chloride 104 (101-111) mmol/L Carbon Dioxide 25 (22-32) mmol/L Anion Gap 7 (2-11) mmol/L BUN 25 H (6-24) mg/dL Creatinine 1.38 H (0.67-1.17) mg/dL Est GFR ( Amer) 59.3 (>60) Est GFR (Non-Af Amer) 49.0 (>60) BUN/Creatinine Ratio 18.1 (8-20) Glucose 109 H (70-100) mg/dL Lactic Acid 1.0 (0.5-2.0) mmol/L Calcium 8.9 (8.6-10.3) mg/dL Total Bilirubin 0.40 (0.2-1.0) mg/dL AST 25 (13-39) U/L ALT 14 (7-52) U/L Alkaline Phosphatase 163 H (34-104) U/L C-Reactive Protein 18.89 H (<8.01) mg/L Total Protein 7.8 (6.4-8.9) g/dL Albumin 3.6 (3.2-5.2) g/dL Globulin 4.2 H (2-4) g/dL Albumin/Globulin Ratio 0.9 L (1-3) Result Diagrams: 10/14/17 00:56 10/14/17 00:56 Lab Statement: Any lab studies that have been ordered have been reviewed, and results considered in the medical decision making process. Course/Dx - Course Course Of Treatment: During the course of treatment, the patient's evaluated for left lower extremity cellulitis. Blood cultures obtained. 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 Discussed with patient his past medical history and he states he has had high blood pressure, and is being treated for the polycythemia, however denies any other diagnoses through Dr. Moulton. There is a dusky erythema extending just inferior to the left knee and just superior to the left ankle to the dorsum of the left lower extremity, sparing the calf. Endorses painful to touch. Very warm to the touch with open wounds exposed with overlying scabs. Ipsilateral foot with significant swelling and +3 pitting edema. Patient denies any fevers , sweats, chills. Discussed the case with Dr. Lora, hospitalist, who agrees to admit to his service. Fluids given as well as cefepime, metronidazole and vancomycin to cover all pathogens related with open wound cellulitis. - Differential Diagnoses - Skin Complaint Differential Diagnoses: Cellulitis - Diagnoses Provider Diagnoses: Cellulitis Discharge - Sign-Out/Discharge Documenting (check all that apply): Patient Departure - Discharge Plan Condition: Stable Disposition: ADMITTED TO [facility] Referrals: Nathaniel Wilson MD [Primary Care Provider] - - Billing Disposition and Condition Condition: STABLE Disposition: Admitted to [facility]
[2017-10-14] MEDS ORDERED: Tetan/Diph/Pertus SYR(Tdap)* 0.5 ML SYR(BOOSTRIX) use SYR IM ONE (08:29)
[2017-10-14] MEDS ORDERED: Vancomycin per Pharmacy* NOTE FOLLOW UP SCH (09:00)
--- NOTE | 2017-10-14 09:55 | HP ---
CC: Dr. Wilson HISTORY AND PHYSICAL: DATE OF ADMISSION: 10/14/17 TIME OF EVALUATION: 07:55 a.m. PRIMARY CARE PROVIDER: Dr. Wilson. CHIEF COMPLAINT: "My leg is swollen." HISTORY OF PRESENT ILLNESS: Mr. Chavez is a an 87-year-old male with a past medical history of hypert ension, GERD, hiatal hernia, questionable PMR, who presents to the emergency room with complaints of left lower extremity pain, swelling, and redness. The patient is a gary and he states that 10 days ago, he was working on his field and he fell and s craped his leg on the metal horseman fence. He states that he cleansed the wound, applied some antib iotic ointment with no improvement. He then decided to use a horse poultice, but the leg continued t o swell and the redness continued to spread. He states he only has pain when he bears weight on that leg, but otherwise, he feels well. He denies fever, chills, nausea, vomiting, shortness of breath, palpitations, chest pain, or any other complaints. He states that the leg is not really bothering him a lot, but his told him to come to the emerge ncy room, reason why he presented today. PAST MEDICAL HISTORY: 1. Hypertension. 2. GERD. 3. Hiatal hernia. 4. Question of history of PMR. 5. Moderate aortic stenosis. 6. Status post hip ORIF. 7. Status post hernia repair. 8. Status post Elias fundoplication. 9. Polycythemia vera followed by Dr. Moulton. MEDICATION LIST: 1. Acetaminophen Extra Strength 500 mg p.o. q.4 hours. 2. Aspirin 81 mg p.o. twice a week. The dose was reduced after the patient had the GI bleed. 3. Nexium 40 mg p.o. b.i.d. 4. Magnesium oxide 1 tablet 400 mg p.o. daily. 5. Multivitamin 1 tablet p.o. daily. 6. Verapamil 120 mg p.o. daily. ALLERGIES: No known drug allergies. FAMILY HISTORY: His mother had a history of alcohol abuse. Father of brain aneurysm. SOCIAL HISTORY: The patient is a former smoker. No history of alcohol or drug use. Surrogate decisi on maker is his , Ellen Chavez, phone number is [phone]. REVIEW OF SYSTEMS: A 14-point review of systems was performed and all the pertinent negative and pos itive findings are in the HPI. PHYSICAL EXAMINATION GENERAL: The patient is a pleasant gentleman, lying in the ED stretcher, in no acute distress. VITAL SIGNS: Temperature 97.6, heart rate is 77, respiratory rate is 17, oxygen saturation is 97% on room air, blood pressure is 157/78. HEENT: Pupils are equal. Moist mucous membranes. CHEST: Breath sounds present bilaterally with no added sounds. CVS: Normal S1, S2. Regular rate and rhythm with a systolic murmur. ABDOMEN: Soft, nontender. Bowel sounds are present. EXTREMITIES: There is edema of the left lower extremity with significant circumferential erythema ex tending from the foot all the way up to his knee. He has multiple excoriations to his martinez. At this point, there is no area of fluctuation or drainage. The area is tender to palpation. He has good pu lses and good capillary refill. NEURO: He is alert and oriented x3. Able to move all 4 extremities. LABORATORY DATA: The patient had a CBC that showed WBC of 37.2, hemoglobin of 12.3, hematocrit 41, platelets 576 with 84% neutrophils. ESR is 31. Chemistry showed sodium of 136, potassium of 3.9, chl oride of 104, bicarb was 25, BUN was 25, creatinine of 1.38, glucose of 109, lactic acid of 1, calciu m of 8.9. LFTs are normal, except for alk phos of 163. CRP is 18.8. ASSESSMENT AND PLAN: Mr. Chavez is an 87-year-old male with a past medical history that includes hype rtension, gastroesophageal reflux disease, hiatal hernia, possible polymyalgia rheumatica, polycythem ia vera, moderate aortic stenosis that presents to the emergency room with complaints of left leg lisa ma, erythema after sustaining a fall with multiple martinez excoriations 10 days ago. 1. Left lower extremity cellulitis. The patient will receive broad-spectrum antibiotics as it started with his excoriation against a meta l fence and the patient has used different home remedies on it. He does not remember when he last to ok a tetanus vaccination, so he received a Tdap booster as he does not recall when he last took it. He will receive broad antibiotics therapy with vancomycin, cefepime, and metronidazole. I am going t o request Infectious Disease evaluation. The patient will have an ultrasound of his lower extremity to rule out an abscess and DVT. The patient has significant leukocytosis, but this is a chronic finding, likely related to his polycy themia. 2. Hypertension. We will continue verapamil. 3. Gastroesophageal reflux disease. We will continue PPI. 4. DVT prophylaxis. The patient has a score of 3 on the DVT Prophylaxis Risk Assessment Guide and h e will be started on subcutaneous heparin. 5. Code status. The patient is full code. TIME SPENT: Approximately 55 minutes was spent with the patient's interview, medical records review, physical examination to complete the admission, more than half of this time was spent [id number] w ith the patient and coordination of care. [id number]/[facility] #: [id number]
--- NOTE | 2017-10-14 10:17 | RAD ---
HISTORY: Left lower extremity pain TECHNIQUE: Multiple transverse and longitudinal ultrasound images were obtained of the veins of the left lower extremity using grayscale, color Doppler, and spectral Doppler imaging with and without compression and with augmentation. FINDINGS: VEINS: The common femoral vein, deep femoral vein, femoral vein and popliteal vein are compressible throughout their course, with normal flow on color Doppler imaging and normal response to augmentation on spectral Doppler imaging. SOFT TISSUES: There is a mild degree of subcutaneous edema at the subcutaneous tissue of the left lower leg. IMPRESSION: No sonographic evidence of deep vein thrombosis.
--- NOTE | 2017-10-14 10:20 | RAD ---
INDICATION: Erythematous and palpable lump overlying the proximal anterior left tibia COMPARISON: None TECHNIQUE: Real time ultrasound images of the subcutaneous tissue overlying the anterior left lower leg were acquired with lindsey scale and Doppler color flow imaging. FINDINGS: Corresponding to the site of erythema and palpation, there is a subcutaneous mostly anechoic and avascular fluid collection measuring approximately 4.6 x 1.0 cm in the axial plane and 6.1 cm in length. IMPRESSION: There is a mostly anechoic fluid collection within the subcutaneous tissue of the anterior left lower leg. Please correspond to recent trauma to the area with subsequent hematoma.
[2017-10-14] MEDS: Acetaminophen TAB* 325 MG PO PRN (10:58)
[2017-10-14] MEDS: Omeprazole CAP* 20 MG PO SCH ×2 (10:58→20:22)
[2017-10-14] MEDS: Multivitamins/Minerals TAB PO SCH (10:58)
[2017-10-14] MEDS: Verapamil SR TAB* 240 MG PO SCH (10:58)
[2017-10-14] MEDS: Magnesium Oxide TAB* 400 MG PO SCH (10:59)
[2017-10-14] MEDS: NS 0.9% 1000 ML* 1,000 ML IV SCH (11:00)
[2017-10-14] MEDS: metroNIDAZOLE IV 500 MG/100ML* 500 MG/100 ML BAG IVPB SCH ×2 (12:07→17:56)
[2017-10-14] MEDS: Heparin VIAL(*) 5000 UNITS/ML VIAL (FIVE THOUSAND) SUBCUT SCH ×2 (14:26→21:49)
[2017-10-14] MEDS ORDERED: Vancomycin(*) 1,250 MG in NS 0.9% 250 ML* 250 ML IVPB SCH (22:00)
[2017-10-15] MEDS: Cefepime 2 GM in Dextrose(*) 2 GM/50 ML BAG IV SCH (00:39)
[2017-10-15] MEDS: Acetaminophen TAB* 325 MG PO PRN (02:32)
[2017-10-15] MEDS: metroNIDAZOLE IV 500 MG/100ML* 500 MG/100 ML BAG IVPB SCH ×3 (02:40→18:32)
[2017-10-15] MEDS: NS 0.9% 1000 ML* 1,000 ML IV SCH ×2 (05:15→20:40)
[2017-10-15] MEDS: Heparin VIAL(*) 5000 UNITS/ML VIAL (FIVE THOUSAND) SUBCUT SCH ×3 (05:20→22:06)
[2017-10-15 05:46] LABS: ABS Basophils 0.6 10^3/ul (0-0.2); ABS Eosinophils 0.7 10^3/ul (0-0.6); ABS Lymphocytes 2.2 10^3/ul (1.0-4.8); ABS Monocytes 2.6 10^3/ul (0-0.8); ABS Nucleated RBC 0 10^3/ul; Hematocrit 41 % (42-52); Hemoglobin 12.5 g/dl (14.0-18.0); Mean Corpuscular HGB Conc 31 g/dl (31-36); Mean Corpuscular Hemoglobin 20 pg (27-31); Mean Corpuscular Volume 65 fL (80-94); Mean Platelet Volume 8.9 um3 (7.4-10.4); Platelet Count 538 10^3/ul (150-450); Red Blood Count 6.24 10^6/ul (4.00-5.40); Red Cell Distribution Width 20 % (10.5-15); White Blood Count 40.1 10^3/ul (3.5-10.8)
[2017-10-15 05:55] LABS: EGFR Non-African American 51.1 (>60)
[2017-10-15 06:07] LABS: Eosinophil % 1.6 % (0-6); Lymphocyte % 5.4 % (25-47); Nucleated Red Blood Cells % 0.1
[2017-10-15] MEDS: Omeprazole CAP* 20 MG PO SCH ×2 (08:17→20:57)
[2017-10-15] MEDS: Verapamil SR TAB* 240 MG PO SCH (08:18)
[2017-10-15] MEDS: Magnesium Oxide TAB* 400 MG PO SCH (08:18)
[2017-10-15] MEDS: Multivitamins/Minerals TAB PO SCH (08:19)
[2017-10-15] MEDS ORDERED: Aspirin 81 mg CHEW TAB* 81 MG TAB.CHEW PO SCH (09:00)
--- NOTE | 2017-10-15 12:10 | CONS ---
CONSULTATION REPORT: DATE OF CONSULT: 10/15/17 REQUESTING PHYSICIAN: Brandi Schaeffer MD CONSULTING SERVICE: Infectious Disease. REASON FOR CONSULTATION: Cellulitis. IMPRESSION: 1. Left lower leg cellulitis and non-pressure related wounds, improving on broad spectrum antibiotics. 2. Polycythemia vera. 3. Chronic leukocytosis, mostly neutrophils, had a bone marrow biopsy. 4. Moderate aortic stenosis. RECOMMENDATIONS: 1. Stop vancomycin. 2. Continue cefepime and Flagyl. 3. Follow his leg here. As long as he is continued to improve each day, we can change him to an oral antibiotic. His left ankle is not tender and he is able to bear weight without pain. HISTORY OF PRESENT ILLNESS: This is an 87-year-old man admitted with left leg cellulitis. About a week to 10 days ago, he fell, scraped his leg on a fence and had a gash in his anterior left leg. He was put in his some topical treatments on it to no avail. Because of persistent redness, worsening swelling , and pain, he came to the hospital on . He had a white blood cell count of 37,000, 40,000 today. His white count in mid September was 36,000. He had blood cultures taken that are negative. He was started on vancomycin, cefepime , and Flagyl. The intensity of the redness in his leg is easing off a bit. He has some scabs on the anterior lower leg, which he thinks has been getting small over the last couple of weeks. He does not have any fevers, chills or sweats. PAST MEDICAL HISTORY: 1. Polycythemia vera with regular phlebotomy. 2. Chronic leukocytosis. 3. Hypertension. 4. Gastroesophageal reflux disease. 5. Hiatal hernia. 6. Moderate aortic stenosis. 7. Status post open reduction internal fixation of the hip. 8. Status post hernia repair. 9. Status post Elias fundoplication. ALLERGIES: No known drug allergies. MEDICATIONS: 1. Tylenol. 2. Aspirin. 3. Cefepime 2 g daily. 4. Heparin subcutaneous injection. 5. Magnesium. 6. Flagyl 500 mg IV every 8 hours. 7. Multivitamin. 8. Omeprazole. 9. Vancomycin 1250 mg daily. SOCIAL HISTORY: He was in [place]. He has no travel or sick contact. FAMILY HISTORY: No recurrent infections. Father from brain aneurysm. REVIEW OF SYSTEMS: All negative in 14-point review of systems except as noted above in the history of present illness. PHYSICAL EXAM: Vital Signs: Temperature 36.4, heart rate 60, respiratory rate 16, blood pressure 140/75, oxygen saturation 96% on room air. In general, he is awake, not in distress. Neurologic: He is oriented x3. Follows all commands. HEENT: There is no conjunctival hemorrhage. Oropharynx without lesions. Neck is supple without mass. Heart is regular rate and rhythm without murmurs, rubs or gallops. Lungs are clear to auscultation bilaterally. Abdomen: Soft, nontender, and nondistended. There are bowel sounds present. Skin: There is no splinter hemorrhage. He has mild blanching erythema that extends from the knee to just above the ankle on the left. There is diffuse edema. There is anterior small eschar. Musculoskeletal: There is no left ankle tenderness to palpation or pain with range of motion. LABORATORY DATA: White blood cell count 40, hemoglobin 12.5, platelets 538, MCV 65. Creatinine 1.3, CRP 19. Please see impressions and recommendations as outlined above, which I have discussed with Dr. Schaeffer. Thanks for asking me to see Mr. Chavez in consultation. [id number]/[facility] #: [id number] LAMIN
--- NOTE | 2017-10-15 17:26 | PN ---
Subjective Date of Service: 10/15/17 Interval History: Patient was seen and examined earlier today. Reports doing well, denies any complaints. Able to bear weight on his left leg, denies fever or chills. Labs noted, WBCs elevated, chronic issue for patient with hx polycythemia vera. Seen earlier by Dr. Galan for consultation. He has no new complaints today. Family History: Unchanged from Admission Social History: Unchanged from Admission Past Medical History: Unchanged from Admission Objective Active Medications: Acetaminophen (Tylenol Tab*) 650 mg PO Q6H PRN PRN Reason: pain/fever Last Admin: 10/15/17 02:32 Dose: 650 mg Aspirin (Aspirin 81 Mg Chew Tab*) 81 mg PO MoTh [facility] Last Admin: 10/15/17 08:18 Dose: 81 mg Heparin Sodium (Porcine) (Heparin Vial(*)) 5,000 units SUBCUT Q8HR [facility] Last Admin: 10/15/17 15:24 Dose: 5,000 units Cefepime HCl (Maxipime 2 Gm In Dextrose Duplex (*)) 2 gm in 50 mls @ 100 mls/ hr IV Q24H [facility] Last Admin: 10/15/17 00:39 Dose: 100 mls/hr Metronidazole/Sodium Chloride (Flagyl 500 Mg Ivpb*) 500 mg in 100 mls @ 100 mls /hr IVPB Q8H [facility] Last Admin: 10/15/17 11:10 Dose: 100 mls/hr Sodium Chloride (Ns 0.9% 1000 Ml*) 1,000 mls @ 100 mls/hr IV PER RATE [facility] Last Admin: 10/15/17 05:15 Dose: 100 mls/hr Magnesium Oxide (Magox 400 Tab*) 400 mg PO DAILY [facility] Last Admin: 10/15/17 08:18 Dose: 400 mg Multivitamins/Minerals (Theragran/Minerals Tab*) 1 tab PO QAM [facility] Last Admin: 10/15/17 08:19 Dose: 1 tab Omeprazole (Prilosec Cap*) 20 mg PO BID [facility]; Protocol Last Admin: 10/15/17 08:17 Dose: 20 mg Verapamil HCl (Calan Sr Tab*) 120 mg PO DAILY [facility] Last Admin: 10/15/17 08:18 Dose: 120 mg Oxygen Devices in Use Now: None Appearance: Appears comfortable and in NAD. Eyes: No Scleral Icterus, PERRLA Ears/Nose/Mouth/Throat: Clear Oropharnyx, Mucous Membranes Moist Neck: NL Appearance and Movements; NL JVP, Trachea Midline Respiratory: Symmetrical Chest Expansion and Respiratory Effort, Clear to Auscultation Cardiovascular: NL Sounds; No Murmurs; No JVD, RRR Abdominal: NL Sounds; No Tenderness; No Distention Extremities: No Edema, - - Left lower extreminty with large area of erythema over anterior and lateral aspects of tibia, from just above the ankle to just below the knee. It appears to be diminished based on prior ink outline. No tenderness, No warmth or induration. Clean and dry linear scabs with no bleeding or discharge noted. N/V intact distally. Neurological: Alert and Oriented x 3 Nutrition: Taking PO's Result Diagrams: 10/15/17 04:50 10/15/17 04:50 Additional Lab and Data: Lab Results 10/14/17 10/14/17 10/14/17 Range/Units 00:56 00:56 00:56 WBC 37.2 H (3.5-10.8) 10^3/ul RBC 6.23 H (4.00-5.40) 10^6/ul Hgb 12.3 L (14.0-18.0) g/dl Hct 41 L (42-52) % MCV 66 L (80-94) fL MCH 20 L (27-31) pg MCHC 30 L (31-36) g/dl RDW 20 H (10.5-15) % Plt Count 576 H D (150-450) 10^3/ul MPV 8.6 (7.4-10.4) um3 Neut % (Auto) 84.7 H (38-83) % Lymph % (Auto) 5.2 L (25-47) % Park % (Auto) 7.4 H (0-7) % Eos % (Auto) 1.5 (0-6) % Baso % (Auto) 1.2 (0-2) % Absolute Neuts (auto) 31.5 H (1.5-7.7) 10^3/ul Absolute Lymphs (auto) 2.0 (1.0-4.8) 10^3/ul Absolute Monos (auto) 2.8 H (0-0.8) 10^3/ul Absolute Eos (auto) 0.6 (0-0.6) 10^3/ul Absolute Basos (auto) 0.5 H (0-0.2) 10^3/ul Absolute Nucleated RBC 0 10^3/ul Nucleated RBC % 0 ESR Pending Sodium 136 (135-145) mmol/L Potassium 3.9 (3.5-5.0) mmol/L Chloride 104 (101-111) mmol/L Carbon Dioxide 25 (22-32) mmol/L Anion Gap 7 (2-11) mmol/L BUN 25 H (6-24) mg/dL Creatinine 1.38 H (0.67-1.17) mg/dL Est GFR ( Amer) 59.3 (>60) Est GFR (Non-Af Amer) 49.0 (>60) BUN/Creatinine Ratio 18.1 (8-20) Glucose 109 H (70-100) mg/dL Lactic Acid 1.0 (0.5-2.0) mmol/L Calcium 8.9 (8.6-10.3) mg/dL Total Bilirubin 0.40 (0.2-1.0) mg/dL AST 25 (13-39) U/L ALT 14 (7-52) U/L Alkaline Phosphatase 163 H (34-104) U/L C-Reactive Protein 18.89 H (<8.01) mg/L Total Protein 7.8 (6.4-8.9) g/dL Albumin 3.6 (3.2-5.2) g/dL Globulin 4.2 H (2-4) g/dL Albumin/Globulin Ratio 0.9 L (1-3) Microbiology and Other Data: Microbiology 10/14/17 00:56 Aerobic Blood Culture - Preliminary Blood Venous No Growth Day 1 Anaerobic Blood Culture - Preliminary No Growth Day 1 10/14/17 00:56 Aerobic Blood Culture - Preliminary Blood Venous No Growth Day 1 Anaerobic Blood Culture - Preliminary No Growth Day 1 Diagnostic Imaging: Patient Name: KATHI MILLER V Medical Record#: [id number] Ordering Physician: Brandi Valdez MD Acct.#: [id number] : 1930 Age: 87 Sex: M Location: [address] [place] [address] - MEDICAL Exam Date: 10/14/17812 ADM Status: ADM IN Order Information: US SOFT TISSUE LIMITED EXT-LT Accession Number: [id number] CPT: 05419 INDICATION: Erythematous and palpable lump overlying the proximal anterior left tibia IMPRESSION: There is a mostly anechoic fluid collection within the subcutaneous tissue of the anterior left lower leg. Please correspond to recent trauma to the area with subsequent hematoma. <Electronically signed by Benoit Rubio MD in OV> 10/14/17 1016 Order Information: VL LOWER EXT VEINS LEFT Accession Number: [id number] CPT: 36099 HISTORY: Left lower extremity pain IMPRESSION: No sonographic evidence of deep vein thrombosis. <Electronically signed by Benoit Rubio MD in OV> 10/14/17 1014 EKG Data: . Assess/Plan/Problems-Billing Assessment: An 87 y/o male with PMH HTN, GERD, PMR and polycythemia vera, who sustained a fall with multiple skin excoriations of the left leg 10 days ago, presents to the ED with increasing left lower extremity swelling and redness. - Patient Problems (1) Cellulitis of left lower extremity Current Visit: Yes Status: Acute Comment: - Appears to be clinically improving on IV antibiotics - ID consult appreciated, will d/c Vanco and continue Cefepime and Metronidazole - Tdap was given in ED - Chronic leukocytosis likely secondary to polycythemia vera (2) Hypertension Current Visit: Yes Status: Acute Comment: - Continue verapamil (3) Hx of polycythemia vera Current Visit: Yes Status: Acute Comment: - Likely causing secondary leukocytosis - Stable (4) GERD (gastroesophageal reflux disease) Current Visit: No Status: Chronic Comment: - Continue PPI coverage (5) DVT prophylaxis Current Visit: Yes Status: Acute Comment: - SubQ heparin (6) Full code status Current Visit: Yes Status: Acute Status and Disposition: Inpatient for IV Antibiotics. Anticipate discharge to home when medically stable.
[2017-10-16] MEDS: Cefepime 2 GM in Dextrose(*) 2 GM/50 ML BAG IV SCH (01:21)
[2017-10-16] MEDS: metroNIDAZOLE IV 500 MG/100ML* 500 MG/100 ML BAG IVPB SCH ×2 (02:54→12:09)
[2017-10-16] MEDS: Heparin VIAL(*) 5000 UNITS/ML VIAL (FIVE THOUSAND) SUBCUT SCH ×3 (05:21→21:19)
[2017-10-16 07:11] LABS: Hematocrit 42 % (42-52); Mean Corpuscular HGB Conc 31 g/dl (31-36); Mean Corpuscular Hemoglobin 20 pg (27-31); Mean Corpuscular Volume 65 fL (80-94); Mean Platelet Volume 9.2 um3 (7.4-10.4); Platelet Count 635 10^3/ul (150-450); Red Blood Count 6.41 10^6/ul (4.00-5.40); Red Cell Distribution Width 20 % (10.5-15); White Blood Count 44.9 10^3/ul (3.5-10.8)
[2017-10-16 07:12] LABS: EGFR Non-African American 53.4 (>60)
[2017-10-16] MEDS: NS 0.9% 1000 ML* 1,000 ML IV SCH ×2 (07:58→21:18)
[2017-10-16] MEDS: Omeprazole CAP* 20 MG PO SCH ×2 (08:08→21:19)
[2017-10-16] MEDS: Verapamil SR TAB* 240 MG PO SCH (08:08)
[2017-10-16] MEDS: Multivitamins/Minerals TAB PO SCH (08:09)
[2017-10-16] MEDS: Magnesium Oxide TAB* 400 MG PO SCH (08:09)
[2017-10-16 08:29] LABS: ABS Basophils 0.4 10^3/ul (0-0.2); ABS Eosinophils 0.6 10^3/ul (0-0.6); ABS Lymphocytes 1.5 10^3/ul (1.0-4.8); ABS Monocytes 4.4 10^3/ul (0-0.8); ABS Neutrophils 37.9 10^3/ul (1.5-7.7); ABS Nucleated RBC 0.1 10^3/ul; Nucleated Red Blood Cells % 0.1
[2017-10-16 08:35] LABS: ABS Basophils 1.3 10^3/ul (0-0.2); ABS Neutrophils 35.9 10^3/ul (1.5-7.7); Monocytes % 10 % (0-7)
--- NOTE | 2017-10-16 13:38 | PN ---
Subjective Date of Service: 10/16/17 Interval History: Mr. Chavez is reports doing well today. Has been ambulatory with minimal pain to left leg. Denies fever or chills. He has no complaints today. Family History: Unchanged from Admission Social History: Unchanged from Admission Past Medical History: Unchanged from Admission Objective Active Medications: Acetaminophen (Tylenol Tab*) 650 mg PO Q6H PRN PRN Reason: pain/fever Last Admin: 10/15/17 02:32 Dose: 650 mg Aspirin (Aspirin 81 Mg Chew Tab*) 81 mg PO MoTh [facility] Last Admin: 10/15/17 08:18 Dose: 81 mg Heparin Sodium (Porcine) (Heparin Vial(*)) 5,000 units SUBCUT Q8HR [facility] Last Admin: 10/16/17 05:21 Dose: 5,000 units Cefepime HCl (Maxipime 2 Gm In Dextrose Duplex (*)) 2 gm in 50 mls @ 100 mls/ hr IV Q24H [facility] Last Admin: 10/16/17 01:21 Dose: 100 mls/hr Metronidazole/Sodium Chloride (Flagyl 500 Mg Ivpb*) 500 mg in 100 mls @ 100 mls /hr IVPB Q8H [facility] Last Admin: 10/16/17 12:09 Dose: 100 mls/hr Sodium Chloride (Ns 0.9% 1000 Ml*) 1,000 mls @ 100 mls/hr IV PER RATE [facility] Last Admin: 10/16/17 07:58 Dose: 100 mls/hr Magnesium Oxide (Magox 400 Tab*) 400 mg PO DAILY [facility] Last Admin: 10/16/17 08:09 Dose: 400 mg Multivitamins/Minerals (Theragran/Minerals Tab*) 1 tab PO QAM [facility] Last Admin: 10/16/17 08:09 Dose: 1 tab Omeprazole (Prilosec Cap*) 20 mg PO BID [facility]; Protocol Last Admin: 10/16/17 08:08 Dose: 20 mg Verapamil HCl (Calan Sr Tab*) 120 mg PO DAILY [facility] Last Admin: 10/16/17 08:08 Dose: 120 mg Vital Signs - 8 hr 10/16/17 10/16/17 07:26 08:00 Temperature 99.0 F Pulse Rate 76 Respiratory 20 20 Rate Blood Pressure 141/65 (mmHg) O2 Sat by Pulse 94 Oximetry Oxygen Devices in Use Now: None Appearance: Appears comfortable and in NAD Eyes: No Scleral Icterus, PERRLA Ears/Nose/Mouth/Throat: Clear Oropharnyx, Mucous Membranes Moist Neck: NL Appearance and Movements; NL JVP, Trachea Midline Respiratory: Symmetrical Chest Expansion and Respiratory Effort, Clear to Auscultation Cardiovascular: RRR, - - Moderate systolic murmur noted Abdominal: NL Sounds; No Tenderness; No Distention Extremities: - - LLE with improved erythema to anterior and lateral tibia compared to prior exam. Minimal tenderess, no induration noted. Neurological: Alert and Oriented x 3 Nutrition: Taking PO's Result Diagrams: 10/16/17 06:31 10/16/17 06:31 Additional Lab and Data: Lab Results 10/14/17 10/14/17 10/14/17 Range/Units 00:56 00:56 00:56 WBC 37.2 H (3.5-10.8) 10^3/ul RBC 6.23 H (4.00-5.40) 10^6/ul Hgb 12.3 L (14.0-18.0) g/dl Hct 41 L (42-52) % MCV 66 L (80-94) fL MCH 20 L (27-31) pg MCHC 30 L (31-36) g/dl RDW 20 H (10.5-15) % Plt Count 576 H D (150-450) 10^3/ul MPV 8.6 (7.4-10.4) um3 Neut % (Auto) 84.7 H (38-83) % Lymph % (Auto) 5.2 L (25-47) % Bailey % (Auto) 7.4 H (0-7) % Eos % (Auto) 1.5 (0-6) % Baso % (Auto) 1.2 (0-2) % Absolute Neuts (auto) 31.5 H (1.5-7.7) 10^3/ul Absolute Lymphs (auto) 2.0 (1.0-4.8) 10^3/ul Absolute Monos (auto) 2.8 H (0-0.8) 10^3/ul Absolute Eos (auto) 0.6 (0-0.6) 10^3/ul Absolute Basos (auto) 0.5 H (0-0.2) 10^3/ul Absolute Nucleated RBC 0 10^3/ul Nucleated RBC % 0 ESR Pending Sodium 136 (135-145) mmol/L Potassium 3.9 (3.5-5.0) mmol/L Chloride 104 (101-111) mmol/L Carbon Dioxide 25 (22-32) mmol/L Anion Gap 7 (2-11) mmol/L BUN 25 H (6-24) mg/dL Creatinine 1.38 H (0.67-1.17) mg/dL Est GFR ( Amer) 59.3 (>60) Est GFR (Non-Af Amer) 49.0 (>60) BUN/Creatinine Ratio 18.1 (8-20) Glucose 109 H (70-100) mg/dL Lactic Acid 1.0 (0.5-2.0) mmol/L Calcium 8.9 (8.6-10.3) mg/dL Total Bilirubin 0.40 (0.2-1.0) mg/dL AST 25 (13-39) U/L ALT 14 (7-52) U/L Alkaline Phosphatase 163 H (34-104) U/L C-Reactive Protein 18.89 H (<8.01) mg/L Total Protein 7.8 (6.4-8.9) g/dL Albumin 3.6 (3.2-5.2) g/dL Globulin 4.2 H (2-4) g/dL Albumin/Globulin Ratio 0.9 L (1-3) Microbiology and Other Data: Microbiology 10/14/17 00:56 Aerobic Blood Culture - Preliminary Blood Venous No Growth Day 1 Anaerobic Blood Culture - Preliminary No Growth Day 1 10/14/17 00:56 Aerobic Blood Culture - Preliminary Blood Venous No Growth Day 1 Anaerobic Blood Culture - Preliminary No Growth Day 1 Diagnostic Imaging: . EKG Data: . Assess/Plan/Problems-Billing Assessment: An 87 y/o male with PMH HTN, GERD, PMR and polycythemia vera, who sustained a fall with multiple skin excoriations of the left leg 10 days ago, presents to the ED with increasing left lower extremity swelling and redness. - Patient Problems (1) Cellulitis of left lower extremity Current Visit: Yes Status: Acute Comment: - Appears to be clinically improving on IV antibiotics - ID consult appreciated, will d/c Vanco and continue Cefepime and Metronidazole - Tdap was given in ED - Chronic leukocytosis likely secondary to polycythemia vera - Likely to convert to PO Abx tomorrow in anticipation for discharge to home (2) Hypertension Current Visit: Yes Status: Acute Comment: - Continue verapamil (3) Hx of polycythemia vera Current Visit: Yes Status: Acute Comment: - Likely causing secondary leukocytosis - Stable (4) GERD (gastroesophageal reflux disease) Current Visit: No Status: Chronic Comment: - Continue PPI coverage (5) DVT prophylaxis Current Visit: Yes Status: Acute Comment: - SubQ heparin (6) Full code status Current Visit: Yes Status: Acute Status and Disposition: Inpatient for IV Antibiotics. Anticipate discharge to home when medically stable.
--- NOTE | 2017-10-16 13:51 | PN ---
Progress Note - Progress Note Date of Service: 10/16/17 SOAP: Subjective: CC: cellulitis HPI: 87 year old man with recent left leg abrasion and now cellulitis which is improving since he's been here. No fever, rash, or diarrhea. Objective: Vital Signs Temp 37.2 C 10/16/17 07:26 Pulse 76 10/16/17 07:26 Resp 20 10/16/17 08:00 BP 141/65 10/16/17 07:26 Pulse Ox 94 10/16/17 07:26 Intake & Output 10/15/17 10/16/17 10/16/17 18:59 06:59 18:59 Intake Total 2520 2742 660 Output Total 400 2150 400 Balance 2120 592 260 Intake: IV Fluids 600 2742 ABX - FLAGYL 100 NS 500 2742 Oral 1920 0 660 Output: Urine 400 2150 400 Other: Estimated Void Large Date of Last Bowel 10/14/17 Movement # Bowel Movements 0 0 # Voids 1 Gen:awake HEENT: no thrush Heart:RRR no murmur Lungs:CTA BL Abd:+BS NTND soft Skin: Left lower leg diffuse blanching erythema; central eschar Laboratory Results - last 24 hr 10/16/17 10/16/17 06:31 06:31 WBC 44.9 H RBC 6.41 H Hgb 13.0 L Hct 42 MCV 65 L MCH 20 L MCHC 31 RDW 20 H Plt Count 635 H D MPV 9.2 Neut % (Auto) Not Reportable Lymph % (Auto) Not Reportable [place] % (Auto) Not Reportable Eos % (Auto) Not Reportable Baso % (Auto) Not Reportable Absolute Neuts (auto) 37.9 H Absolute Lymphs (auto) 1.5 Absolute Monos (auto) 4.4 H Absolute Eos (auto) 0.6 Absolute Basos (auto) 0.4 H Absolute Nucleated RBC 0.1 Immature Gran % 3 Neutrophils % 80 Lymphocytes % 3 L Monocytes % 10 H Eosinophils % 1 Basophils % 3 H Metamyelocytes % 3 H Nucleated RBC % 0.1 Abs Neuts (Manual) 35.9 H Abs Lymphs (Manual) 1.3 Abs Monocytes (Manual) 4.5 H Absolute Eos (Manual) 0.4 Abs Basophils (Manual) 1.3 H Normal RBC Morphology Not Reportable Microcytosis 1+ Sodium 136 Potassium 3.7 Chloride 103 Carbon Dioxide 24 Anion Gap 9 BUN 19 Creatinine 1.28 H Est GFR ( Amer) 64.6 Est GFR (Non-Af Amer) 53.4 BUN/Creatinine Ratio 14.8 Glucose 87 Calcium 8.8 Assessment: 1. left leg cellulitis, improving 2. Polycthemia vera with neutrophilia Plan: 1. keflex 500 mg po tid for 10 days on discharge, keep leg elevated
[2017-10-17] MEDS: Cefepime 2 GM in Dextrose(*) 2 GM/50 ML BAG IV SCH (01:18)
[2017-10-17] MEDS: Heparin VIAL(*) 5000 UNITS/ML VIAL (FIVE THOUSAND) SUBCUT SCH (06:29)
[2017-10-17 09:05] VITALS: BP 157/72
[2017-10-17] MEDS: Acetaminophen TAB* 325 MG PO PRN (09:15)
[2017-10-17] MEDS: Magnesium Oxide TAB* 400 MG PO SCH (09:16)
[2017-10-17] MEDS: Multivitamins/Minerals TAB PO SCH (09:16)
[2017-10-17] MEDS: Omeprazole CAP* 20 MG PO SCH (09:16)
[2017-10-17] MEDS: Verapamil SR TAB* 240 MG PO SCH (09:17)
[2017-10-17] MEDS ORDERED: Vancomycin Trough Check NOTE FOLLOW UP ONE (21:30)
--- NOTE | 2017-10-18 00:34 | DS ---
CC: Dr. Wilson; Dr. Galan; Dr. Moulton * DISCHARGE SUMMARY: DATE OF ADMISSION: 10/14/17 DATE OF DISCHARGE: 10/17/17 PATIENT OF: Admitting hospitalist, Dr. Brandi Schaeffer. ATTENDING HOSPITALIST: Dr. Chantal Veloz.* (DICTATED BY YEIMY NORRIS) PRIMARY CARE PROVIDER: Dr. Wilson. CONSULTATION: Dr. Galan, GABRIEL CHIEF COMPLAINT: Left leg swelling and redness. ADMISSION DIAGNOSES: 1. Left leg swelling and erythema. 2. Hypertension. 3. Gastroesophageal reflux disease. 4. Hiatal hernia. 5. Questionable history of polymyalgia rheumatica. 6. 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 oMulton. 7. History of moderate aortic stenosis. DISCHARGE DIAGNOSES: 1. Left lower extremity cellulitis. 2. Hypertension. 3. Gastroesophageal reflux disease. 4. Hiatal hernia. 5. Questionable history of polymyalgia rheumatica. 6. 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 Moulton. 7. History of moderate aortic stenosis. ADMITTING PHYSICIAN: Dr. Brandi Schaeffer. ATTENDING HOSPITALIST: Dr. Chantal Veloz. CONSULTATION: Dr. Galan. PROCEDURE: None. HISTORY OF PRESENT ILLNESS: Mr. Chavez is an 87-year-old male with past medical history of hypertension, GERD, hiatal hernia, who presented to the emergency room on 10/14/17 with complaints of left lower extremity pain, swelling, and redness. 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 He states that about 10 days ago, he was working on his field when he fell and scraped his left leg on a middle horse fence. He had multiple small abrasions and excoriation of the left leg that was cleansed at home and he applied some antibiotic ointment that he occasionally use for horses with no improvement. His leg continued to have some swelling and redness that has gotten worse every day. He started to have some pain that appears to be worse with weightbearing, for which he presented to the emergency room for further evaluation. He denied any fever, chills, calf pain, or history of similar complaints in the past. He had laboratory workup that revealed significant leukocytosis; however, compared to his baseline from prior laboratory workup, it appears to be normal. He also had a stable hemoglobin and hematocrit of 12.3 and 41 respectively. His CRP was elevated at 18. He had a left lower extremity x-ray that showed soft tissue swelling and possibly a small subcutaneous hematoma without evidence of abscess or bony involvement. He also had a Doppler ultrasound that revealed no evidence of DVT. Given his clinical presentation of cellulitis and leukocytosis as well as worsening erythema, we were asked to see the patient to consider admission. HOSPITAL COURSE: The patient was admitted under hospitalist services and started on IV antibiotics. He initially had vancomycin, cefepime, and metronidazole on board. He started to improve immediately after the first dose of antibiotics with some improvement of his lower extremity cellulitis and swelling. Consultation by Dr. Galan was obtained for further recommendation regarding outpatient treatment. His vancomycin eventually stopped and he continued to receive cephalosporin treatment that appeared to be covering well with clinical improvement of his cellulitis. He had blood cultures that revealed no evidence of any growth for 3 days. He had laboratory workup repeated while he stayed in the hospital that revealed consistent leukocytosis that appears to be at baseline for the patient ranging around 40,000 for white count. He tells me that he missed his appointment with Dr. Moulton the day prior to discharge, for which we contacted her office and he will be seen later this week or early next week for a followup for his missed appointment. The patient frequently gets venipuncture for treatment of his polycythemia vera. I also arranged for him to be seen at [facility] for a followup. At discharge day, he appeared to be comfortable and his vitals were stable. His left lower extremity showed decreased amount of erythema. He was ambulatory, out of bed. His lungs were clear to auscultation bilaterally. His heart was regular rate and rhythm without rubs, murmurs, or gallops. We went through the discharge instructions and he will be sent home today and will follow up with [facility] next week with Dr. Moulton later this week or early next week, as well as primary care provider too. DISCHARGE MEDICATIONS: 1. Tylenol 500 mg p.o. q.4 hours as needed for pain or fever. 2. Aspirin 81 mg p.o. daily. 3. Nexium 40 mg p.o. b.i.d. 4. Magnesium 400 mg 1 tablet daily. 5. Multivitamin with minerals 1 tablet p.o. daily. 6. Verapamil 120 mg p.o. daily. 7. Keflex 500 mg p.o. t.i.d. x10 days. YEIMY NORRIS [id number]/[facility] #: [id number] MTDD
== END 2017-10-17 12:30 | disposition home or self-care (01) | DRG 603 ==
LOC: ED 21:52 → MED 10-14 09:24
PROVIDERS: ADMIT Internal Medicine; ATTEND Internal Medicine
DX: L03.116 Cellulitis of left lower limb (principal); D72.0 Genetic anomalies of leukocytes; D45 Polycythemia vera; I10 Essential (primary) hypertension; I35.0 Nonrheumatic aortic (valve) stenosis; K21.9 Gastro-esophageal reflux disease without esophagitis; M19.90 Unspecified osteoarthritis, unspecified site; H26.9 Unspecified cataract; K44.9 Diaphragmatic hernia without obstruction or gangrene; M35.3 Polymyalgia rheumatica; S80.812A Abrasion, left lower leg, initial encounter; W17.89XA Other fall from one level to another, initial encounter; S80.12XA Contusion of left lower leg, initial encounter; Z87.01 Personal history of pneumonia (recurrent); Z97.4 Presence of external hearing-aid; Z82.49 Family history of ischemic heart disease and other diseases of the circulatory system; Z87.891 Personal history of nicotine dependence; Z81.1 Family history of alcohol abuse and dependence; Y92.73 Farm field as the place of occurrence of the external cause; Z79.82 Long term (current) use of aspirin
CPT/HCPCS: 36415; 80048; 80053; 83605; 85025; 85060; 85652; 86140; 87040; 90715; 99212; 99284; A9270-GY; G0463; J0692; J1644; J3370; J3490

== ENCOUNTER 2017-12-13 23:13 | Emergency (ER) | payer MEDICARE ==
[2017-12-14] MEDS ORDERED: Gelfoam Sponge SIZE 100* SPONGE TOPICAL ONE (02:29)
[2017-12-14 03:01] VITALS: BP 131/66
--- NOTE | 2017-12-14 04:16 | ED ---
Throat Pain/Nasal Congestion - HPI Summary HPI Summary: Patient complains of persistent bleeding from site of tooth extraction on . Patient has tried applying gauze but is unable to control bleeding. History patient has history of polycythema vera. Patient has no anti-coag, but was on aspirin but has stopped aspirin for 2 days. Patient currently on penicillin status post dental surgery. Denies fever, cough, sore throat, CP, SOB, N/V/D, bowel pain, change in urine, change in BM. Medical history is HTN. - History of Current Complaint Chief Complaint: EDDentalPain Time Seen by Provider: 12/14/17 00:50 Hx Obtained From: Patient Onset/Duration: Lasting Days Severity: Moderate Associated Signs And Symptoms: Positive: Dysphagia Cough: None - Allergies/Home Medications Allergies/Adverse Reactions: Allergies Allergy/AdvReac Type Severity Reaction Status Date / Time No Known Allergies Allergy Verified 10/13/17 21:12 Home Medications: Home Medications Penicillin V Potassium 500 mg PO TID 12/14/17 [History Confirmed 12/14/17] PMH/Surg Hx/FS Hx/Imm Hx Endocrine/Hematology History: Reports: Hx Anemia - iron def., taking supplement Denies: Hx Anticoagulant Therapy, Hx Diabetes Cardiovascular History: Reports: Hx Hypertension, Other Cardiovascular Problems/ Disorders - mild aortic stenosis Denies: Hx Angina, Hx Coronary Artery Disease, Hx Hypercholesterolemia, Hx Myocardial Infarction, Hx Pacemaker/ICD Respiratory History: Reports: Other Respiratory Problems/Disorders - RECENT PNEUMONIA 07/2016, and also in 2016, DR. DOWELL AWARE Denies: Hx Asthma, Hx Chronic Obstructive Pulmonary Disease (COPD) GI History: Reports: Hx Gastroesophageal Reflux Disease - FUNDOPLICATION SURGERY 2000, ON NEXIUM. History: Reports: Other Problems/Disorders - BPH Musculoskeletal History: Reports: Hx Arthritis Sensory History: Reports: Hx Cataracts, Hx Contacts or Glasses, Hx Hearing Aid - No hearing aides in the hospital. 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 [facility] [place] RIGHT INGUINAL HERNAI REPAIR Hx Anesthesia Reactions: No - Immunization History Date of Tetanus Vaccine: utd Date of Influenza Vaccine: fall 2016 Infectious Disease History: No Infectious Disease History: Denies: Traveled Outside the [place] in Last 30 Days - Family History Known Family History: Positive: None, Other - aneurysm - Social History Alcohol Use: Occasionally Hx Substance Use: No Substance Use Type: Reports: None Smoking Status (MU): Former Smoker Amount Used/How Often: light smoker for approx 6 yrs Review of Systems Constitutional: Negative Eyes: Negative Positive: Other Cardiovascular: Negative Respiratory: Negative Gastrointestinal: Negative Genitourinary: Negative Musculoskeletal: Negative Skin: Negative Neurological: Negative Psychological: Normal All Other Systems Reviewed And Are Negative: Yes Physical Exam - Summary Physical Exam Summary: Persistent bleeding from tooth extraction site on right lower gum. No evidence of infection. Triage Information Reviewed: Yes Vital Signs On Initial Exam: Initial Vitals Temp Pulse Resp BP Pulse Ox 97.0 F 88 15 167/82 96 12/13/17 23:16 12/13/17 23:16 12/13/17 23:16 12/13/17 23:16 12/13/17 23:16 Vital Signs Reviewed: Yes Appearance: Positive: Well-Appearing Skin: Positive: Warm Head/Face: Positive: Normal Head/Face Inspection Eyes: Positive: Normal ENT: Positive: Normal ENT inspection Neck: Positive: Supple Respiratory/Lung Sounds: Positive: Clear to Auscultation Cardiovascular: Positive: Normal Abdomen Description: Positive: Nontender Musculoskeletal: Positive: Normal Neurological: Positive: Normal Psychiatric: Positive: Normal AVPU Assessment: Alert - [place] Coma Scale Best Eye Response: 4 - Spontaneous Best Motor Response: 6 - Obeys Commands Best Verbal Response: 5 - Oriented Coma Scale Total: 15 Diagnostics - Vital Signs Vital Signs Temp Pulse Resp BP Pulse Ox 12/14/17 02:14 74 131/66 94 12/14/17 02:00 78 94 12/14/17 01:44 72 136/71 92 12/14/17 01:14 74 143/74 93 12/14/17 01:00 83 93 12/14/17 00:44 85 161/88 95 12/14/17 00:43 81 96 12/13/17 23:16 97.0 F 88 15 167/82 96 - Laboratory Lab Statement: Any lab studies that have been ordered have been reviewed, and results considered in the medical decision making process. EENT Course/Dx - Course Course Of Treatment: Patient complains of persistent bleeding from site of tooth extraction on 12/12. Patient has tried applying gauze but is unable to control bleeding. History patient has history of polycythema vera. Patient has no anti-coag, but was on aspirin but has stopped aspirin for 2 days. Patient currently on penicillin status post dental surgery. Denies fever, cough , sore throat, CP, SOB, N/V/D, bowel pain, change in urine, change in BM. Medical history is HTN. physical exam: Persistent bleeding from tooth extraction site on right lower gum. No evidence of infection. Vital signs within normal limits. [id number] suture using 4. 0 chromic placed in surgical site. Bleeding is controlled. Follow-up with her dental surgeon. - Diagnoses Provider Diagnoses: Surgical wound hemorrhage after dental procedure Discharge - Sign-Out/Discharge Documenting (check all that apply): Patient Departure - Discharge Plan Condition: Stable Disposition: HOME Patient Education Materials: Toothache (ED) Referrals: Nathaniel Wilson MD [Primary Care Provider] - Additional Instructions: Follow-up with your dentist as soon as possible. Return to the ED for any new or worsening symptoms - Billing Disposition and Condition Condition: STABLE Disposition: Home
== END 2017-12-14 05:08 | disposition home or self-care (01) ==
LOC: ED 23:13
DX: K91.840 Postprocedural hemorrhage of a digestive system organ or structure following a digestive system procedure (principal); Z98.818 Other dental procedure status; R13.10 Dysphagia, unspecified; I10 Essential (primary) hypertension; Z87.891 Personal history of nicotine dependence
CPT/HCPCS: 99282

== ENCOUNTER 2018-06-03 09:50 | Inpatient (IN) | payer MEDICARE ==
[2018-06-03] MEDS ORDERED: NS 0.9% 1000 ML** 1,000 ML IV ONE ×2 (09:52→18:13)
[2018-06-03] MEDS ORDERED: Aspirin 81 mg CHEW TAB* 81 MG TAB.CHEW PO ONE (10:01)
[2018-06-03] MEDS ORDERED: Metoprolol Tartrate IV* 1 MG/ML 5 ML VIAL IV ONE (10:01)
--- NOTE | 2018-06-03 10:09 | ED ---
Dizziness - HPI Summary HPI Summary: Pt is an 88 y/o male brought in by EMS who presents to the ED c/o dizziness. He was sent here by Dr. Graves for a cardiac workup. As per EMS pt went to the seat cover maker this morning because he thought he had an appointment, and he was too weak to get out of his car. An EKG at the seat cover maker revealed LBBB and ectopy, however an EKG done by EMS revealed NSR. As per patient, he was laying down gravel in his driveway yesterday afternoon and felt dizzy, weak, and nauseated. Pt then went to bed and was not able to get out of bed. The nausea has resolved but he still feels weak and dizzy. As per Dr. Blanco pt was also confused. Pt also reports mild right-sided abdominal pain but this is due to a recent fall 2 months ago. He denies any vomiting, diaphoresis, CP, or MORRISON. Pt is a former smoker. He is mildly tachycardic in the room with a rate of 102 bpm. PMHx aortic stenosis, HTN, TIA, dizziness. Pt takes daily ASA. - History Of Current Complaint Stated Complaint: WEAKNESS PER EMS Time Seen by Provider: 06/03/18 09:52 Hx Obtained From: Patient, EMS Onset/Duration: Still Present Timing: Constant - Yesterday afternoon Character: Weak, Dizzy Aggravating Factor(s): Exertion - laying down gravel Associated Signs And Symptoms: Positive: Nausea. Negative: Vomiting, Diaphoresis, Chest Pain Related History: Similar Episode/Dx as - dizziness - Allergies/Home Medications Allergies/Adverse Reactions: Allergies Allergy/AdvReac Type Severity Reaction Status Date / Time No Known Allergies Allergy Verified 10/13/17 21:12 Home Medications: Home Medications Acetaminophen [Acetaminophen Extra Strength] 500 mg PO BID PRN 06/03/18 [ History Confirmed 06/03/18] Calcium Carbonate/Vitamin D3 [Calcium 600-Vit D3 800 [place]] 1 tab PO DAILY [History Confirmed 06/03/18] Magnesium Oxide TAB* [MagOx 400 TAB*] 400 mg PO DAILY 06/03/18 [History Confirmed 06/03/18] Omeprazole (Nf) [Prilosec (NF)] 40 mg PO DAILY 06/03/18 [History Confirmed 06/03] Verapamil HCl [Verapamil ER] 60 mg PO DAILY 06/03/18 [History Confirmed 06/03/18 ] amLODIPine TAB* [Norvasc 5 mg TAB*] 2.5 mg PO DAILY 06/03/18 [History Confirmed 06/03/18] PMH/Surg Hx/FS Hx/Imm Hx Endocrine/Hematology History: Reports: Hx Anemia - iron def., taking supplement Denies: Hx Anticoagulant Therapy, Hx Diabetes Cardiovascular History: Reports: Hx Hypertension, Other Cardiovascular Problems/ Disorders - mild aortic stenosis Denies: Hx Angina, Hx Coronary Artery Disease, Hx Hypercholesterolemia, Hx Myocardial Infarction, Hx Pacemaker/ICD Respiratory History: Reports: Other Respiratory Problems/Disorders - RECENT PNEUMONIA 07/2016, and also in 2016, DR. DOWELL AWARE Denies: Hx Asthma, Hx Chronic Obstructive Pulmonary Disease (COPD) GI History: Reports: Hx Gastroesophageal Reflux Disease - FUNDOPLICATION SURGERY 2000, ON NEXIUM., Hx Hiatal Hernia History: Reports: Other Problems/Disorders - BPH Musculoskeletal History: Reports: Hx Arthritis, Other Musculoskeletal History - polymyalgia rheumatica Sensory History: Reports: Hx Cataracts, Hx Contacts or Glasses, Hx Hearing Aid - No hearing aides in the hospital. 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 2000 [place] [facility] [place] RIGHT INGUINAL HERNAI REPAIR Hx Anesthesia Reactions: No - Immunization History Date of Tetanus Vaccine: utd Date of Influenza Vaccine: fall 2016 Infectious Disease History: No Infectious Disease History: Denies: Traveled Outside the [place] in Last 30 Days - Family History Known Family History: Positive: Other - aneurysm, alcoholism - Social History Alcohol Use: Occasionally Hx Substance Use: No Substance Use Type: Reports: None Hx Tobacco Use: Yes Smoking Status (MU): Former Smoker Amount Used/How Often: light smoker for approx 6 yrs Review of Systems Negative: Skin Diaphoresis Negative: Chest Pain Positive: Abdominal Pain, Nausea - resolved. Negative: Vomiting Neurological: Other - Dizziness, confusion Positive: Weakness - generalized. Negative: Headache All Other Systems Reviewed And Are Negative: Yes Physical Exam - Summary Physical Exam Summary: Appearance: well appearing, no pain distress Skin: warm, dry, reflects adequate perfusion Head/face: normal Eyes: EOMI, HOA ENT: mucous membranes moist Neck: supple, non-tender Respiratory: CTA, breath sounds present Cardiovascular: tachycardic but regular rhythm, pulses symmetrical, systolic murmur Abdomen: no RUQ tenderness, soft Bowel Sounds: present Musculoskeletal: normal, strength/ROM intact Neuro: sensory motor intact, A&Ox3, mildly hard of hearing, difficult to understand speech Triage Information Reviewed: Yes Vital Signs On Initial Exam: Initial Vitals Temp Pulse Resp BP Pulse Ox 100.4 F 100 23 147/76 93 06/03/18 09:58 06/03/18 09:58 06/03/18 09:58 06/03/18 09:58 06/03/18 09:58 Vital Signs Reviewed: Yes - [place] Coma Scale Best Eye Response: 4 - Spontaneous Best Motor Response: 6 - Obeys Commands Best Verbal Response: 5 - Oriented Coma Scale Total: 15 Diagnostics - Vital Signs Vital Signs Temp Pulse Resp BP Pulse Ox 06/03/18 09:58 100.4 F 100 23 147/76 93 - Laboratory Result Diagrams: 06/03/18 10:15 06/03/18 10:15 Lab Statement: Any lab studies that have been ordered have been reviewed, and results considered in the medical decision making process. - Radiology CXR Radiology Interpretation Completed By: Radiologist Summary of Radiographic Findings: RIGHT LUNG INFILTRATE. ED physician reviewed radiology report. - CT Brain CT CT Interpretation Completed By: Radiologist Summary of CT Findings: NO ACUTE INTRACRANIAL PATHOLOGY. CHRONIC SMALL VESSEL ISCHEMIC CHANGES. ED physician reviewed radiology report. - Ultrasound No standard instances Ultrasound Interpretation Completed By: ED Physician Summary of Ultrasound Findings: US performed at bedside by ED physician: gallbladder mildly distended, gallstone seen but wall not thickened, no sonographic Gomez's sign, right kidney normal - EKG 9:55 Cardiac Rate: NL - 99 bpm EKG Rhythm: Sinus Rhythm Summary of EKG Findings: Nl axis, tall T waves anteriorly, ST depressions laterally Dizzy Course/Dx - Course Course Of Treatment: Nurse's notes reviewed. Patient with delirium and ectopy. His bundle-branch block that was witnessed prehospital has now resolved. He has a lobar infiltrate seen on x-ray. He also has grossly elevated WBC which is consistent with history of the same. IV antibiotics started, IV fluids. Admit to the hospitalist. - Diagnoses Differential Diagnosis/HQI/PQRI: Hypovolemia, Metabolic Abnormality, Seizure, Other - ACS, sepsis, infection (UTI/pneumonia) Provider Diagnoses: Pneumonia, Delirium, History of leukocytosis, Sepsis - Provider Notifications Discussed Care Of Patient With: Dennis Blanco Time Discussed With Above Provider: 10:02 Instructed by Provider To: Other - Discussed pt's history. He recommends a brain CT because of the confusion. They will not take him to the cardiac laundry laborer right now. At 11:00 Dr. Velarde accepted pt for admission. Discharge - Sign-Out/Discharge Documenting (check all that apply): Patient Departure - Admit Patient Received Moderate/Deep Sedation with Procedure: No - Discharge Plan Condition: Guarded Disposition: ADMITTED TO [facility] - Billing Disposition and Condition Condition: GUARDED Disposition: Admitted to [facility] - Attestation Statements Document Initiated by Scribe: Yes Documenting Scribe: Daphne Garza Provider For Whom Scribe is Documenting (Include Credential): Agustín Payne MD Scribe Attestation: Daphne Flores, scribed for Agustín Payne MD on 06/03/18 at 1456. Scribe Documentation Reviewed: Yes Provider Attestation: The documentation as recorded by the Daphne guerra accurately reflects the service I personally performed and the decisions made by me, Agustín Payne MD Status of Scribe Document: Viewed
[2018-06-03] MEDS ORDERED: cefTRIAXone(*) 1 GM in NS 0.9% 50 ML* 50 ML IVPB ONE (10:17)
[2018-06-03] MEDS ORDERED: Azithromycin 500 mg/250 ml NS 500 MG/250 ML BAG IVPB ONE (10:17)
[2018-06-03 10:45] LABS: Hematocrit 44 % (36-46); Hemoglobin 13.8 g/dL (14.0-18.0); Mean Corpuscular HGB Conc 32 g/dL (31-36); Mean Corpuscular Hemoglobin 24 pg (27-31); Mean Corpuscular Volume 77 fL (80-94); Mean Platelet Volume 8.5 fL (7.4-10.4); Platelet Count 318 10^3/uL (150-450); Red Blood Count 5.72 10^6 /uL (4.18-5.48); Red Cell Distribution Width 24 % (10.5-15); White Blood Count 44.5 10^3/uL (3.5-10.8)
[2018-06-03 10:55] LABS: Albumin/Globulin Ratio 0.8 (1-3); BUN/Creatinine Ratio 16.8 (8-20); C Reactive Protein 11.17 mg/L (<8.01); Calcium 9.7 mg/dL (8.6-10.3); EGFR African American 66.3 (>60); EGFR Non-African American 54.8 (>60); Globulin 4.9 g/dL (2-4); Magnesium 1.4 mg/dL (1.9-2.7); Potassium 3.4 mmol/L (3.5-5.0); Total Bilirubin 0.6 mg/dL (0.2-1.0); Total Protein 8.9 g/dL (6.4-8.9)
[2018-06-03 10:59] LABS: Troponin I 0.04 ng/mL (<0.04)
[2018-06-03 11:01] LABS: INR 1.14 (0.77-1.02)
[2018-06-03 11:19] LABS: ABS Basophils 0.4 10^3/ul (0-0.2); ABS Eosinophils 0 10^3/ul (0-0.6); ABS Lymphocytes 0.4 10^3/ul (1.0-4.8); ABS Monocytes 3.9 10^3/ul (0-0.8); ABS Neutrophils 39.7 10^3/ul (1.5-7.7); ABS Nucleated RBC 0 10^3/ul; Eosinophil % 0.1 %; Nucleated Red Blood Cells % 0
[2018-06-03 11:21] LABS: Urine Appearance Cloudy; Urine Bacteria Absent (Absent); Urine Bilirubin Negative (Negative); Urine Blood 1+ (Negative); Urine Color Yellow; Urine Glucose Negative (Negative); Urine Ketones Negative (Negative); Urine Nitrite Negative (Negative); Urine Protein 2+(100 mg/dL) (Negative); Urine Red Blood Cell 2+(6-10/hpf) (Absent); Urine Specific Gravity 1.013 (1.010-1.030); Urine Urobilinogen Negative (Negative); Urine White Blood Cell Trace(0-5/hpf) (Absent)
[2018-06-03 11:32] LABS: TSH (Thyroid Stimulating Horm) 3.38 mcIU/mL (0.34-5.60)
[2018-06-03] MEDS ORDERED: Acetaminophen TAB* 325 MG PO PRN (13:47)
[2018-06-03] MEDS ORDERED: Magnesium Sulfate 2 GM IV* 2 GM/50 ML BAG IVPB ONE ×2 (13:55→18:13)
[2018-06-03] MEDS ORDERED: Potassium Chloride LIQUID* 20 MEQ PACKET PO ONE (13:56)
[2018-06-03] MEDS: Enoxaparin(*) 40 MG/0.4 ML SYR SUBCUT SCH (15:36)
[2018-06-03 16:14] LABS: Anion Gap 9 mmol/L (2-11); BUN/Creatinine Ratio 16.3 (8-20); Blood Urea Nitrogen 23 mg/dL (6-24); CO2 Carbon Dioxide 24 mmol/L (22-32); Calcium 8.9 mg/dL (8.6-10.3); Chloride 102 mmol/L (101-111); EGFR African American 57.7 (>60); EGFR Non-African American 47.7 (>60); Glucose 97 mg/dL (70-100); Magnesium 1.6 mg/dL (1.9-2.7); Potassium 3.9 mmol/L (3.5-5.0); Sodium 135 mmol/L (135-145)
[2018-06-03 16:16] LABS: Troponin I 0.07 ng/mL (<0.04)
[2018-06-03 16:28] LABS: Influenza A Molecular NEGATIVE (Negative); Influenza B Molecular NEGATIVE (Negative)
--- NOTE | 2018-06-03 16:30 | HP ---
CC: Dr. Nathaniel Wilson; Dr. Arelis Moulton; Dr. Bora Graves HISTORY AND PHYSICAL: DATE OF ADMISSION: 06/03/18 PRIMARY CARE PHYSICIAN: Dr. Nathaniel Wilson. ONCOLOGIST: Dr. Arelis Moulton. PEDIATRIC NP: Dr. Bora Graves. HEALTHCARE PROXY: Ellen, . CODE STATUS: Full code. CHIEF COMPLAINT: Acute weakness, chills, nausea, and headache. HISTORY OF PRESENT ILLNESS: Mr. Baron is an 88-year-old male with history of aortic stenosis, hypertension, GERD, possible polymyalgia rheumatica, polycythemia vera, who is presenting to the emergency room from [facility] with weakness and chills. The patient states that since last night, he has been experiencing worsening of his baseline weakness associated with new chills, nausea, and worsening of his chronic headache. He denies chest pain, cough. He did not check his temperature at home. Of note, he and his do report that he has baseline weakness and headaches for years associated with falls for which a workup has been unrevealing. Today, he was going to see his chief load dispatcher, Dr. Graves. In the parking lot, he had difficulty getting out of his car secondary to weakness. He was assisted into the clinic from his car and noted to be tachycardic and hypertensive. His EKG in the clinic revealed sinus tachycardia at 111 beats per minute with a new LBBB and APCs. He was transferred to the emergency room for further evaluation. He report decreased appetite but denies chest pain, SOB, light headedness, n/v/c/d,abdominal pain. Other than above, 10-point ROS was negative. In the emergency room, a repeat EKG revealed normal sinus rhythm. He was noted to have a heart rate of 102. He had a chest x-ray done, which showed patchy infiltrates present in the right upper lobe and at the right lung base without associated pleural effusion. A brain CT was also performed given history of headache, acutely worsening recently, although it showed no acute intracranial pathology. He was given ceftriaxone and azithromycin, and admitted to Medicine. PAST MEDICAL HISTORY: 1. Aortic stenosis. 2. Hypertension. 3. GERD and hiatal hernia. 4. Polycythemia vera, followed by Dr. Moulton. 5. Possible history of PMR. 6. Status post ORIF. 7. Status post hernia repair. 8. Status post Elias fundoplication. HOME MEDICATIONS: 1. Amlodipine 2.5 mg daily. 2. Verapamil ER 60 mg daily. 3. Omeprazole 40 mg daily. 4. Multivitamin. 5. Magnesium, calcium, and vitamin D supplements. ALLERGIES: He has no known drug allergies. FAMILY HISTORY: Reviewed and noncontributory. SOCIAL HISTORY: He recently retired as a gary. He lives with his . He quit smoking tobacco in his 30s, rarely drinks alcohol, never any other drugs. PHYSICAL EXAMINATION GENERAL: A chronically ill-appearing elderly man, in no acute distress. Alert and interactive. VITAL SIGNS: T-max 100.4, heart rate 70, blood pressure 110/58, respiratory rate 13, SaO2 95% on room air. HEENT: OP clear, moist mucous membranes. NECK: No JVD. LUNGS: Clear to auscultation bilaterally. HEART: Regular rate and rhythm. Systolic murmur loudest at RUSB. ABDOMEN: Soft, nontender, nondistended. EXTREMITIES: Warm and well perfused. No edema. DIAGNOSTIC STUDIES/LAB DATA: Labs reviewed and significant for WBC 44, hemoglobin of 13.8, microcytic at baseline. Potassium 3.4, creatinine 1.25 at baseline, magnesium 1.4. Troponin is 0.04. BNP is 365. CRP is 11. UA is clear. Flu negative. EKG with NSR 99, LVH with repol abnormalities unchanged from priors Chest x-ray with patchy infiltrates in the right upper lobe and at the right lung base. Head CT showed no acute intracranial pathology, chronic small vessel ischemic changes. ASSESSMENT AND PLAN: An 88-year-old man with history of hypertension, , polycythemia vera, and gastroesophageal reflux disease, is presenting with acute weakness, chills, and nausea, found with fever, elevated WBC, and chest x- ray concerning for right lung infiltrate. 1. Pneumonia, complicated by sepsis. Significantly elevated WBC likely leukemoid reaction from infection on top of known history of myeloproliferative disorder. We will continue the patient on empiric coverage for community- acquired pneumonia: ceftriaxone and azithromycin. We will continue to monitor vital signs closely. Follow up blood and sputum cultures and follow up legionella and Streptococcus pneumoniae antigens. 2. Troponin elevation. In the setting of no chest pain and no concerning EKG changes, likely that this is demand ischemia in the setting of tachycardia from sepsis. However, given new LBBB seen in clinic (not on repeat in ER), will order TTE, although likely rate-related LBBB. 3. . Polycythemia vera. We will hold hydroxyurea while the patient is on antibiotics. The patient has appointment with Dr. Moulton on 06/10/18 at 9 a.m. 4. Hypertension. Continue home amlodipine 2.5 and switch verapamil to formulary 30 mg b.i.d. 5. Gastroesophageal reflux disease. Continue home PPI. 6. Hypokalemia, hypomagnesemia. Repeat electrolytes. Follow up BMP. 7. H/o falls and deconditioning: PT 8. DVT prophylaxis. Start Lovenox daily. 9. The patient is a full code. TIME SPENT: Approximately 60 minutes was spent on admission of this patient, over half of which was spent at bedside for interview and exam. [id number]/[facility] #: [id number] LAMIN
[2018-06-04 07:07] LABS: Hematocrit 39 % (36-46); Hemoglobin 11.8 g/dL (14.0-18.0); Mean Corpuscular HGB Conc 31 g/dL (31-36); Mean Corpuscular Hemoglobin 24 pg (27-31); Mean Corpuscular Volume 78 fL (80-94); Mean Platelet Volume 8.6 fL (7.4-10.4); Platelet Count 281 10^3/uL (150-450); Red Blood Count 4.93 10^6 /uL (4.18-5.48); Red Cell Distribution Width 24 % (10.5-15); White Blood Count 33.3 10^3/uL (3.5-10.8)
[2018-06-04 07:20] LABS: Anion Gap 6 mmol/L (2-11); BUN/Creatinine Ratio 15.4 (8-20); Blood Urea Nitrogen 22 mg/dL (6-24); CO2 Carbon Dioxide 26 mmol/L (22-32); Calcium 8.9 mg/dL (8.6-10.3); Chloride 105 mmol/L (101-111); EGFR African American 56.7 (>60); EGFR Non-African American 46.9 (>60); Glucose 85 mg/dL (70-100); Magnesium 2.5 mg/dL (1.9-2.7); Phosphorus 2.8 mg/dL (2.5-5.0); Potassium 4.5 mmol/L (3.5-5.0); Sodium 137 mmol/L (135-145)
[2018-06-04 07:24] LABS: Troponin I 0.05 ng/mL (<0.04)
[2018-06-04 07:37] LABS: ABS Basophils 0.2 10^3/ul (0-0.2); ABS Eosinophils 0.2 10^3/ul (0-0.6); ABS Lymphocytes 1.7 10^3/ul (1.0-4.8); ABS Monocytes 3.7 10^3/ul (0-0.8); ABS Neutrophils 27.6 10^3/ul (1.5-7.7); ABS Nucleated RBC 0 10^3/ul; Eosinophil % 0.5 %; Lymphocyte % 5.1 %; Nucleated Red Blood Cells % 0
[2018-06-04] MEDS: Multivitamins/Minerals TAB PO SCH (10:03)
[2018-06-04] MEDS: amLODIPine TAB* 5 MG PO SCH (10:03)
[2018-06-04] MEDS: Azithromycin TAB* 250 MG PO SCH (10:03)
[2018-06-04] MEDS: cefTRIAXone(*) 1 GM in NS 0.9% 50 ML* 50 ML IVPB SCH (10:03)
[2018-06-04] MEDS: Pantoprazole TAB * 40 MG TAB PO SCH (10:03)
[2018-06-04] MEDS: Verapamil TAB* 120 MG PO SCH ×2 (10:51→21:09)
--- NOTE | 2018-06-04 12:23 | ECHO ---
Patient: KATHI MILLER V [facility] Rec#: [id number] : 1930 Date: 06/04/2018 Age: 88y Height: 183 cm / 72.0 in Weight: 78 kg / 171.9 lbs Sex: M BSA: 2 Room#: [facility] Admit Date#: 06/03/2018 Type: Inpatient Referring: CAROLINA Reading: Bora Graves MD Coat Fitter: Saige Andrade RDCS CC: Nathaniel Wilson MD CC: Bora Graves MD Transthoracic Echocardiogram Indication: Abnormal EKG BP: 124/47 HR: 70 Rhythm: NSR Findings History: Aortic stenosis, HTN, TIA, polycythemia vera. Technical Comments: The study quality is fair. Completed at 0945. Left Ventricle: The left ventricular chamber size is normal. Mild concentric left ventricular hypertrophy is observed. Global left ventricular wall motion and contractility are within normal limits. There is normal left ventricular systolic function. The estimated ejection fraction is 60-65%. There is a left ventricular septal wall motion abnormality observed, possibly due to the presence of a left bundle branch block. The assessment of diastolic function is non-diagnostic.for grade. Probable diastolic dysfunction. Left Atrium: The left atrium is mildly dilated. Right Ventricle: Moderator Band present. The right ventricle is mild to moderately dilated. The right ventricular global systolic function is normal. Right Atrium: The right atrium is mildly dilated. Aortic Valve: The aortic valve is trileaflet. Moderate aortic leaflet calcification is visualized. There is moderate aortic regurgitation. There is moderate aortic stenosis. The mean gradient of the aortic valve is 21 mmHg. The peak instantaneous gradient of the aortic valve is 38 mmHg. The aortic valve area, by peak velocities, is calculated at 1.3 cm2. The aortic valve area, by VTI's, is calculated at 1.2 cm2. The measured aortic regurgitation pressure half-time is 286 msec. Mitral Valve: The mitral valve leaflets are mildly thickened. There is a trace of mitral regurgitation. There is no evidence of mitral stenosis. Tricuspid Valve: The tricuspid valve leaflets are normal. There is trace tricuspid regurgitation. Unable to estimate the right ventricular systolic pressure. There is no tricuspid stenosis. Pulmonic Valve: The pulmonic valve appears normal. There is a trace pulmonic regurgitation. There is no pulmonic stenosis. Pericardium: There is no significant pericardial effusion. Aorta: There is no dilatation of the ascending aorta. There is no dilatation of the aortic arch. The aortic root is normal in size. Pulmonary Artery: The main pulmonary artery appears normal. Venous: The inferior vena cava is dilated. There is a greater than 50% respiratory change in the inferior vena cava dimension. Conclusions Mild concentric left ventricular hypertrophy is observed. The estimated ejection fraction is 60-65%. There is a left ventricular septal wall motion abnormality observed, possibly due to the presence of a left bundle branch block. Probable diastolic dysfunction The assessment of diastolic function is non-diagnostic.for grade of diastolic dysfunction. The left atrium is mildly dilated. The right ventricle is mild to moderately dilated. The right ventricular global systolic function is normal. The right atrium is mildly dilated. There is moderate aortic stenosis. There is moderate aortic regurgitation. There is a trace of mitral regurgitation. There is trace tricuspid regurgitation. Interval mild progression in aortic stenosis c/t 06/2017. Measurements Name Value Normal Range RVIDd (AP) 2D 4.1 cm (0.9 - 2.6) RVDdMajor (2D) 5 cm (2.2 - 4.4) RAd ISD 4CH 5.3 cm (3.4 - 4.9) RA (A4C)W 4.8 cm (2.9 - 4.6) IVSd (2D) 1.1 cm (0.6 - 1) LVPWd (2D) 1.2 cm (0.6 - 1) LVIDd (2D) 4.2 cm (3.6 - 5.4) LVIDs (2D) 3.1 cm - LV FS (2D) 26 % (25 - 45) Aortic Annulus 2.2 cm (1.4 - 2.6) Ao root diameter (2D) 3.4 cm (2.1 - 3.5) Ascending Ao 3.3 cm (2.1 - 3.4) Aortic arch 2.3 cm (1.8 - 3.4) LA dimension (AP) 2D 4.4 cm (2.3 - 3.8) LAd ISD 4CH 6.4 cm (2.9 - 5.3) LA ISD 4CH W 5.3 cm (2.5 - 4.5) Name Value Normal Range LA ESV BP (A/L) index 39 ml/m2 - Name Value Normal Range MV E-wave Vmax 0.6 m/sec - MV deceleration time 254 msec - MV A-wave Vmax 1 m/sec - MV E:A ratio 0.6 ratio - LV septal e' Vmax 0.05 m/sec - LV lateral e' Vmax 0.05 m/sec - Name Value Normal Range AV Vmax 3.1 m/sec - AV VTI 72 cm - AV peak gradient 38 mmHg - AV mean gradient 21 mmHg - LVOT diameter 2 cm - LVOT Vmax 1.3 m/sec - LVOT VTI 28 cm - LVOT peak gradient 7 mmHg - LVOT mean gradient 3 mmHg - DOI (VTI) 0.39 ratio - CRIS (continuity Vmax) 1.3 cm2 - CRIS (continuity VTI) 1.2 cm2 - AR PHT 286 msec - ELODIA Vmax 1.2 m/sec - Name Value Normal Range IVC diameter 2.6 cm - Name Value Normal Range PV Vmax 1.2 m/sec - PV peak gradient 5 mmHg -
[2018-06-04] MEDS: Enoxaparin(*) 40 MG/0.4 ML SYR SUBCUT SCH (15:45)
--- NOTE | 2018-06-04 19:43 | PN ---
Subjective Interval History: No events overnight. Pt feeling significantly improved and stronger, although with dizziness on standing. Objective Active Medications: Acetaminophen (Tylenol Tab*) 650 mg PO Q4H PRN PRN Reason: FEVER/PAIN Amlodipine Besylate (Norvasc Tab*) 2.5 mg PO DAILY [facility] Last Admin: 06/04/18 10:03 Dose: 2.5 mg Azithromycin (Zithromax Tab*) 250 mg PO DAILY [facility] Stop: 06/08/18 08:59 Last Admin: 06/04/18 10:03 Dose: 250 mg Enoxaparin Sodium (Lovenox(*)) 40 mg SUBCUT Q24H [facility] Last Admin: 06/04/18 15:45 Dose: 40 mg Ceftriaxone Sodium 1 gm/ (Sodium Chloride) 50 mls @ 200 mls/hr IVPB Q24H [facility] Last Admin: 06/04/18 10:03 Dose: 200 mls/hr Multivitamins/Minerals (Theragran/Minerals Tab*) 1 tab PO QAM [facility] Last Admin: 06/04/18 10:03 Dose: 1 tab Pantoprazole Sodium (Protonix Tab*) 40 mg PO DAILY [facility] Last Admin: 06/04/18 10:03 Dose: 40 mg Verapamil HCl (Calan Tab*) 30 mg PO BID [facility] Last Admin: 06/04/18 10:51 Dose: 30 mg Vital Signs - 8 hr 06/04/18 15:20 Temperature 97.7 F Pulse Rate 57 Respiratory 16 Rate Blood Pressure 130/62 (mmHg) O2 Sat by Pulse 96 Oximetry Oxygen Devices in Use Now: None Appearance: well appearing, making jokes Ears/Nose/Mouth/Throat: Mucous Membranes Moist Neck: NL Appearance and Movements; NL JVP Respiratory: Clear to Auscultation Cardiovascular: RRR Extremities: No Edema Result Diagrams: 06/04/18 06:46 06/04/18 06:46 Microbiology and Other Data: Microbiology 06/03/18 10:48 Urine Culture - Final Urine No Growth (<1,000 CFU/mL) 06/03/18 10:15 Aerobic Blood Culture - Preliminary Blood Venous No Growth Day 1 Anaerobic Blood Culture - Preliminary No Growth Day 1 06/03/18 10:14 Aerobic Blood Culture - Preliminary Blood Venous No Growth Day 1 Anaerobic Blood Culture - Preliminary No Growth Day 1 06/03/18 20:00 Gram Stain - Final Sputum Expectorated 06/03/18 10:48 Legionella Urinary Antigen - Final Urine Negative Legionella Antigen Streptococcus pneumoniae Ag Screen - Final Negative S. pneumo Antigen Assess/Plan/Problems-Billing Assessment: 88M with HTN, , polycythemia vera, and GERD, presents with weakness, chills, nausea, found with fever, leukocytosis, and CXR concerning for PNA. - Patient Problems (1) Community acquired pneumonia Comment: Continue IV CTX/azithro (06/03 - ). Responded significantly. (2) Hypertension Comment: - Continue verapamil, low-dose amlodipine Status and Disposition: To home on discharge - possibly tomorrow. Would benefit from home PT.
[2018-06-05 08:42] LABS: ABS Basophils 0.1 10^3/ul (0-0.2); ABS Eosinophils 0.2 10^3/ul (0-0.6); ABS Lymphocytes 1.5 10^3/ul (1.0-4.8); ABS Monocytes 2.4 10^3/ul (0-0.8); ABS Neutrophils 23.2 10^3/ul (1.5-7.7); ABS Nucleated RBC 0 10^3/ul; Eosinophil % 0.8 %; Hematocrit 40 % (36-46); Hemoglobin 12.3 g/dL (14.0-18.0); Lymphocyte % 5.4 %; Mean Corpuscular HGB Conc 31 g/dL (31-36); Mean Corpuscular Hemoglobin 24 pg (27-31); Mean Corpuscular Volume 78 fL (80-94); Mean Platelet Volume 8.6 fL (7.4-10.4); Nucleated Red Blood Cells % 0; Platelet Count 330 10^3/uL (150-450); Red Blood Count 5.19 10^6 /uL (4.18-5.48); Red Cell Distribution Width 24 % (10.5-15); White Blood Count 27.4 10^3/uL (3.5-10.8)
[2018-06-05 09:06] LABS: BUN/Creatinine Ratio 16.8 (8-20); EGFR African American 56.7 (>60); EGFR Non-African American 46.9 (>60)
[2018-06-05] MEDS: amLODIPine TAB* 5 MG PO SCH (09:29)
[2018-06-05] MEDS: Multivitamins/Minerals TAB PO SCH (09:29)
[2018-06-05] MEDS: Azithromycin TAB* 250 MG PO SCH (09:29)
[2018-06-05] MEDS: Verapamil TAB* 120 MG PO SCH (09:31)
[2018-06-05] MEDS: Pantoprazole TAB * 40 MG TAB PO SCH (09:32)
[2018-06-05] MEDS: cefTRIAXone(*) 1 GM in NS 0.9% 50 ML* 50 ML IVPB SCH (10:55)
[2018-06-05 11:52] VITALS: BP 135/48
--- NOTE | 2018-06-06 03:17 | DS ---
CC: Dr. Nathaniel Wilson; Dr. Dennis Blanco * DISCHARGE SUMMARY: DATE OF ADMISSION: 06/03/18 DATE OF DISCHARGE: 06/05/18 PRIMARY CARE PHYSICIAN: Dr. Nathaniel Wilson. LEATHER SCRUBBER: Dennis Blanco MD. DISPOSITION: To home. CONDITION: Good. PRIMARY DIAGNOSIS: Pneumonia with sepsis. SECONDARY DIAGNOSES: 1. Hypertension. 2. Aortic stenosis. 3. Polycythemia vera. PERTINENT STUDIES AND LABS: EKG with normal sinus rhythm with LVH and secondary repolarization changes, otherwise unchanged from baseline. Chest x-ray with right lung infiltrate. Transthoracic echocardiogram with mild concentric LVH, estimated EF 60% to 65%, left ventricular septal wall motion abnormality observed, probable diastolic dysfunction but is nondiagnostic for grade of dysfunction, LA mildly dilated, RV mild to moderately dilated, RV global systolic function is normal, RA mildly dilated, moderate aortic stenosis and regurgitation, interval change with mild progression in aortic stenosis. Brain CT without contrast without acute intracranial pathology. Chronic small vessel ischemic changes. HISTORY OF PRESENT ILLNESS: This is an 88-year-old man with history of aortic stenosis, hypertension, GERD, polycythemia vera, possible polymyalgia rheumatica , presented to the emergency room from Cardiology Clinic with weakness and chills. The patient states that since one day prior to admission, he was experiencing worsening of his baseline weakness associated with new chills, nausea and worsening of his chronic headache. He did deny chest pain or cough , although he states he has had pneumonia in the past without cough. He did not check his temperature at home, although he felt feverish. Today, he went to see his outpatient axle inspector, Dr. Blanco, 1 week before scheduled appointment and in the parking lot, he was having difficulty getting out of his car secondary to weakness. Another patron in the parking lot assisted him to the clinic where he was noted to be tachycardic and hypertensive with EKG revealing sinus tachycardia at 110 beats per minute with new left bundle-branch block, so he was transferred to the emergency room for further evaluation. HOSPITAL COURSE: In the emergency room, repeat EKG revealed normal sinus rhythm unchanged from prior. He had a chest x-ray performed which showed patchy infiltrates in the right upper and lower lobes. He was started on empiric for community-acquired pneumonia treatment and given sepsis dose fluids and admitted to the medical service. His fever quickly resolved and his symptoms quickly reversed with antibiotics and fluids. He was noted to have a troponin peak of 0.07, which was deemed due to demand ischemia in the setting of sepsis. The patient remained without chest pain throughout admission or concerning EKG findings. The patient had repeat echo, which was without focal wall motion abnormalities but did show progression of aortic stenosis. Discussed ordering inpatient exercise stress test but patient preferred to defer. Further cardiology workup to outpatient. He reports he has an appointment with his axle inspector next week and his heart "feels fine." He updated his MOLST form with medical team, which is signed in his chart. On day 2 of admission, he did report mild dizziness on standing, so he was evaluated by physical therapy, who recommended outpatient physical therapy for endurance and balance training, which patient was amenable to. On day of discharge, he reports feeling back to his normal level of strength. He denied chills, nausea , or cough. He reports being able to walk around the floor without dyspnea on exertion. He does report mild chronic headache unchanged from previous, which he was told was related to his hematologic disorder. Otherwise, 10-point review of systems was negative. PHYSICAL EXAMINATION: Afebrile. Heart rate 60s, blood pressure 136/68, respiratory rate 12, oxygen saturation 97% on room air. General: Elderly appearing gentleman in good spirits, alert and interactive. Heart: Regular rate and rhythm. No murmurs, gallops, or rubs. Lungs: Clear to auscultation bilaterally. Abdomen: Soft, nontender, nondistended. Lower Extremities: Without evidence of edema. Warm and well perfused. DISCHARGE PLAN: The patient has appointment with his oncologist, Dr. Arelis Moulton, this Sunday and has an appointment with his axle inspector, Dr. Dennis Blanco, later next week. He reports not realizing that he should still followup with the primary care physician, but he was educated on importance of having a PCP, so he plans to follow up in that office as well. He will complete an oral antibiotic course for community-acquired pneumonia. DISCHARGE MEDICATIONS: 1. Cefdinir 300 mg b.i.d. for 4 more days. 2. Verapamil 60 mg daily ER. 3. Amlodipine 2.5 mg daily. 4. Omeprazole 40 mg daily. 5. Multivitamins, magnesium, calcium and vitamin D3 supplements. The patient was educated on return precautions. Told to return to the hospital with recurrence of presenting symptoms, fevers, or chest pain. He is to resume normal diet and level of activity. TIME SPENT: Approximately 60 minutes spent on discharge of this patient, more of than half of which was spent with care coordination at bedside for interview and exam. [id number]/[facility] #: [id number] LAMIN
== END 2018-06-05 15:00 | disposition home or self-care (01) | DRG 871 ==
LOC: ED 09:50 → MED 13:47
PROVIDERS: ADMIT Internal Medicine; ATTEND Internal Medicine
DX: A41.9 Sepsis, unspecified organism (principal); J18.9 Pneumonia, unspecified organism; I24.8 Other forms of acute ischemic heart disease; I10 Essential (primary) hypertension; I35.0 Nonrheumatic aortic (valve) stenosis; D45 Polycythemia vera; R42 Dizziness and giddiness; I44.7 Left bundle-branch block, unspecified; N40.0 Benign prostatic hyperplasia without lower urinary tract symptoms; M19.90 Unspecified osteoarthritis, unspecified site; M35.3 Polymyalgia rheumatica; H26.9 Unspecified cataract; I49.1 Atrial premature depolarization; E87.6 Hypokalemia; E83.42 Hypomagnesemia; Z81.1 Family history of alcohol abuse and dependence; Z82.49 Family history of ischemic heart disease and other diseases of the circulatory system; Z87.891 Personal history of nicotine dependence; Z97.4 Presence of external hearing-aid; Z86.73 Personal history of transient ischemic attack (TIA), and cerebral infarction without residual deficits; Z72.89 Other problems related to lifestyle
CPT/HCPCS: 36415; 70450; 71045; 80048; 80053; 81003; 81015; 83605; 83735; 83880; 84100; 84443; 84484; 85025; 85060; 85610; 86140; 87040; 87086; 87205; 87899; 93005; 93306; 99284; A9270-GY; J0456; J0696; J1650; J3475; J3490

== ENCOUNTER 2019-01-21 14:15 | Emergency (ER) | payer MEDICARE ==
--- NOTE | 2019-01-21 15:04 | ED ---
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 Patient is present with his . Patient was recommended to go to the ED for his headaches by his PCP, Dr. Cooley. He also saw a specialist, Dr. Horton today for his stenosis for which he was told there is no additional interventions available. Patient reports chronic hx headaches, today he describes his headaches as a pressure sensation. He admits mild blurry vision and dizziness with his headaches. Patients was also concerned for slurred speech, which she reports he has had in the past. The headache was first noticed 4 years ago, but has worsened in the last week. He denies any aggravating or alleviating factors. He has seen Dr. Rivero for his headaches. PMHx is significant for polycythemia vera, HTN, and basilar artery insufficiency, but denies DM. - History Of Current Complaint Chief Complaint: EDHeadache Stated Complaint: SEVERE HEADACHE PER PT Time Seen by Provider: 01/21/19 14:52 Hx Obtained From: Patient Onset/Duration: Sudden Onset, Still Present Initially Headache Was: Moderate Currently Pain Is: Moderate Timing: Constant Character: Pressure Location of Headache: Diffuse Aggravating Factor: Nothing Allevating Factors: Nothing Associated Signs And Symptoms: Dizziness, Visual Changes - Blurred vision - Allergies/Home Medications Allergies/Adverse Reactions: Allergies Allergy/AdvReac Type Severity Reaction Status Date / Time No Known Allergies Allergy Verified 01/21/19 14:46 Home Medications: Home Medications Atorvastatin* [Lipitor*] 40 mg PO QPM 01/21/19 [History Confirmed 01/21/19] Calcium Carb/D3/Magnesium/Zinc [Lj Mag Zinc + D3 Tablet] 1 each PO DAILY [History Confirmed 01/21/19] Clopidogrel TAB* [Plavix TAB*] 75 mg PO DAILY 01/21/19 [History Confirmed ] HydroxyUREA CAP* [Hydrea CAP*] 500 mg PO EVERY OTHER DAY 01/21/19 [History Confirmed 01/21/19] Pantoprazole TAB * [Protonix TAB*] 80 mg PO DAILY 01/21/19 [History Confirmed ] Topiramate TAB(*) [Topamax 25 MG tab] 25 mg PO QAM 01/21/19 [History Confirmed 01/21/19] Topiramate TAB(*) [Topamax 25 MG tab] 50 mg PO BEDTIME 01/21/19 [History Confirmed 01/21/19] PMH/Surg Hx/FS Hx/Imm Hx Previously Healthy: Yes Endocrine/Hematology History: Reports: Hx Anemia - iron def., taking supplement , Other Endocrine/Hematological Disorders - Polycythemia vera Denies: Hx Anticoagulant Therapy, Hx Diabetes Cardiovascular History: Reports: Hx Hypertension, Other Cardiovascular Problems/ Disorders - mild aortic stenosis Denies: Hx Angina, Hx Coronary Artery Disease, Hx Hypercholesterolemia, Hx Myocardial Infarction, Hx Pacemaker/ICD Respiratory History: Reports: Other Respiratory Problems/Disorders - RECENT PNEUMONIA 07/2016, and also in 2016, DR. DOWELL AWARE Denies: Hx Asthma, Hx Chronic Obstructive Pulmonary Disease (COPD) GI History: Reports: Hx Gastroesophageal Reflux Disease - FUNDOPLICATION SURGERY 2000, ON NEXIUM., Hx Hiatal Hernia History: Reports: Other Problems/Disorders - BPH Musculoskeletal History: Reports: Hx Arthritis, Other Musculoskeletal History - polymyalgia rheumatica Sensory History: Reports: Hx Cataracts, Hx Contacts or Glasses, Hx Hearing Aid - No hearing aides in the hospital. Pt left @ home, Hx Hearing Problem Denies: Hx Legally Blind, Hx Deafness, Other Sensory Impairments Opthamlomology History: Reports: Hx Cataracts, Hx Contacts or Glasses Denies: Hx Legally Blind, Other Sensory Impairments EENT History: Denies: Hx Deafness Neurological History: Reports: Hx Headaches - MORRISON once a day, "poor circulation back of head", Hx Transient Ischemic Attacks (TIA), Other Neuro Impairments/ Disorders - basilar artery occlusion & stenosis, dizziness Psychiatric History: Denies: Hx Panic Disorder - Surgical History Surgical History: Yes Surgery Procedure, Year, and Place: 2000 LAP CRISTIAN FUNDOPLICATION [facility]. 2000 L HIP FRACTURE [facility]. 07/29 RIGHT INGUINAL HERNAI REPAIR Hx Anesthesia Reactions: No - Immunization History Date of Tetanus Vaccine: utd Date of Influenza Vaccine: fall 2016 Infectious Disease History: No Infectious Disease History: Denies: Traveled Outside the [place] in Last 30 Days - Family History Known Family History: Positive: Other - aneurysm, alcoholism - Social History Occupation: Retired Lives: With Family Alcohol Use: Occasionally Alcohol Amount: wine or beer Hx Substance Use: No Substance Use Type: Reports: None Hx Tobacco Use: Yes Smoking Status (MU): Former Smoker Amount Used/How Often: light smoker for approx 6 yrs Review of Systems Positive: Blurred Vision - With headache Neurological: Other - Positive dizziness Positive: Headache, Slurred Speech - Per All Other Systems Reviewed And Are Negative: Yes Physical Exam - Summary Physical Exam Summary: Constitutional: Well-developed, Well-nourished, Elderly male. (-) Distressed Skin: Warm, Dry HENT: Normocephalic; Atraumatic Eyes: Conjunctiva normal Neck: Musculoskeletal ROM normal neck. (-) JVD, (-) Stridor, (-) Nuchal rigidity Cardio: Rhythm regular, rate normal, Heart sounds normal; Intact distal pulses; Radial pulses are 2+ and symmetric. (-) Murmur Pulmonary/Chest wall: Effort normal. (-) Respiratory distress, (-) Wheezes, (-) Rales Abd: Soft, (-) tenderness, (-) Distension, (-) Guarding, (-) Rebound Musculoskeletal: (-) Edema Lymph: (-) Cervical adenopathy Neuro: Alert, Oriented x3, mild dysarthria otherwise CN2-12 grossly intact, Psych: Mood and affect Normal Triage Information Reviewed: Yes Vital Signs On Initial Exam: Initial Vitals Temp Pulse Resp BP Pulse Ox 98.4 F 65 16 124/58 98 01/21/19 14:42 01/21/19 14:42 01/21/19 14:42 01/21/19 14:42 01/21/19 14:42 Vital Signs Reviewed: Yes - Tevin Coma Scale Best Eye Response: 4 - Spontaneous Best Motor Response: 6 - Obeys Commands Best Verbal Response: 5 - Oriented Coma Scale Total: 15 Procedures - Sedation Patient Received Moderate/Deep Sedation with Procedure: No Diagnostics - Vital Signs Vital Signs Temp Pulse Resp BP Pulse Ox 01/21/19 14:42 98.4 F 65 16 124/58 98 - Laboratory Result Diagrams: 01/21/19 16:21 01/21/19 16:21 Lab Statement: Any lab studies that have been ordered have been reviewed, and results considered in the medical decision making process. - CT Brain CT CT Interpretation Completed By: Radiologist Summary of CT Findings: Brain CT IMPRESSION: NO ACUTE INTRACRANIAL PATHOLOGY. CHRONIC SMALL VESSEL ISCHEMIC CHANGE. Reviewed by Dr. Sigel. Head CTA CT Interpretation Completed By: Radiologist Summary of CT Findings: Head CTA IMPRESSION: #. 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 This appears grossly unchanged compared with MRI exam from July 31, 2016. #. The LEFT vertebral artery is diminutive in size and appears to terminate in the. posterior inferior cerebellar artery representing a normal variant. #. No large vessel anterior circulation significant stenosis or occlusion evident. #. No evidence for dural venous sinus thrombosis. Reviewed by Dr. Varela. - EKG 15:45 Cardiac Rate: NL - 65 BPM EKG Rhythm: Sinus Rhythm ST Segment: Normal Ectopy: None EKG Comparison: No Significant Change - From 06/03/18 Summary of EKG Findings: An EKG at 15:45 reveals normal sinus rhythm with 65 BPM , nml axis, nml intervals. No STEMI. No acute changes. T wave inversions in aVF. No change from 06/03/18. Reviewed and interpreted by Dr. Varela. Re-Evaluation - Re-Evaluation First Eval Re-Evaluation Time: 15:40 Comment: pharmacy technology instructor changed CT brain order to CTA w venogram protocol Headache Course/Dx - Course Course Of Treatment: 88 y/o male w hx PCV, basilar stenosis, HTN p/w headache. - patient has hx of similar headaches in past, follows w neurology. NIHSS 1 for dysarthria (which he has intermittently). Neurology saw in ED and recommended CT brain which was negative. Given symptomatic txt with improvement in symptoms. CTV obtained given hx PCV, (via CTA w venogram protocol) which shows his chronic basilar stenosis. Topamax inc by neurology. Patient can f/u w PCP and return for worsening symptoms. - Diagnoses Provider Diagnoses: Headache, Polycythemia vera - Physician Notifications Discussed Care Of Patient With: Marck Rivero - At 15:45, Dr. Rivero recommends a head CTA. Time Discussed With Above Provider: 15:45 Discharge ED - Sign-Out/Discharge Documenting (check all that apply): Patient Departure - Discharge - Discharge Plan Condition: Stable Disposition: HOME Patient Education Materials: Acute Headache (ED) Referrals: Deidre Cooley DO [Primary Care Provider] - Additional Instructions: You were seen in the emergency department for headache. Your CT did not show any acute changes. Please follow up with youtr neurologist and increased your Topamax as prescribed. If any studies were not completed at the time of discharge you will be called with the relevant results. Please follow up with your primary care doctor in next 2-3 days and return to emergency department for worsening headaches, fevers, confusion, or concerning symptoms. It was a pleasure taking care of you today. - Billing Disposition and Condition Condition: STABLE Disposition: Home - Attestation Statements Document Initiated by Kyle: Yes Documenting Scribe: Nancy Bang Provider For Whom Kyle is Documenting (Include Credential): Lupillo Varela MD Scribe Attestation: INancy, scribed for Lupillo Varela MD on 01/23/19 at 1547. Scribe Documentation Reviewed: Yes Provider Attestation: The documentation as recorded by the Nancy guerra accurately reflects the service I personally performed and the decisions made by , Lupillo Varela MD Status of Scribe Document: Viewed
[2019-01-21] MEDS ORDERED: Acetaminophen TAB* 325 MG PO ONE (16:03)
[2019-01-21] MEDS ORDERED: NS 0.9% 1000 ML** 1,000 ML IV ONE (16:03)
[2019-01-21 16:44] LABS: BUN/Creatinine Ratio 16.5 (8-20); Calcium 9.2 mg/dL (8.6-10.3); EGFR African American 44.6 (>60); EGFR Non-African American 36.9 (>60); Potassium 3.9 mmol/L (3.5-5.0)
--- OUTSIDE RECORDS SUMMARY | 2019-01-21 16:47 | XMS REPORT ---
:1930 Author Organization [facility] Care Team Providers Name Role Phone Unavailable Unavailable Unavailable Problems This patient has no known problems. Allergies, Adverse Reactions, Alerts Allergy Allergy Status Severity Reaction(s) Onset Inactive Treating Comments Name Type Date Date Clinician Uncoded Unknown Active Unknown Reaction 2018-05 Interface free-text -18 allergy Medications Ordered Filled Start Stop Current Ordering Indication Dosage Frequency Signature Comments Components Medication Medication Date Date Medication? Clinician (SIG) Name Name Multivitami Multivitami 2011-02 No Unknown Unknown Unknown ns/Minerals ns/Minerals - Tab* Tab* amLODIPine amLODIPine No Unknown Unknown Unknown 5 mg tablet 5 mg tablet 4-15 acetaminoph acetaminoph No Unknown Unknown Unknown en 500 mg en 500 mg 4-15 tablet tablet magnesium magnesium No Unknown Unknown Unknown oxide 400 oxide 400 4-15 mg (241.3 mg (241.3 mg mg magnesium) magnesium) tablet tablet omeprazole omeprazole No Unknown Unknown Unknown 40 mg 40 mg 4-15 capsule,del capsule,del ayed ayed release release verapamil verapamil No Unknown Unknown Unknown ER 120 mg ER 120 mg 4-15 capsule,ext capsule,ext ended ended release release Calcium Calcium No Unknown Unknown Unknown Carbonate/V Carbonate/V 4-15 itamin D3 itamin D3 cefdinir cefdinir No Unknown Unknown Unknown 300 mg 300 mg 4-17 capsule capsule Vital Signs Vital Name Observation Time Observation Value Comments SYSTOLIC mm[Hg] 2018-06-06 18:05:21 135 mm[Hg] mm[Hg] Method: Sit DIASTOLIC mm[Hg] 2018-06-06 18:05:21 48 mm[Hg] mm[Hg] Method: Sit PULSE 2018-06-06 18:05:21 63 /min /min RESP RATE 2018-06-06 18:05:21 16 /min /min TEMP 2018-06-06 18:05:21 97.4 [degF] Procedures This patient has no known procedures. Results Test Description Test Time Test Comments Text Results Atomic Results Result Comments Laboratory Studies 2018-06-05 08:13:00 Identifier [id number] Result Time Unknown 2018-06-05 08:13:00 Test Item Value Reference Range Comments Unknown (test code = 2951-2) 136 mmol/L Unknown 135-145 F Ordering Physician UnknownLaboratory Ziquckm3426-20-24 08:13:00Identifier [id number] Result Time 2018-06-05 08:13:00Unknown Test Item Value Reference Range Comments Unknown (test code = 2823-3) 4.0 mmol/L Unknown 3.5-5.0 F Ordering Physician UnknownLaboratory Enitiue6274-44-16 08:13:00Identifier [id number] 6 Result Time 2018-06-05 08:13:00Unknown Test Item Value Reference Range Comments Unknown (test code = 2345-7) 87 mg/dL Unknown 70-100 F Ordering Physician UnknownLaboratory Cefnsbm4905-22-37 08:13:00Identifier [id number]- 6 Result Time 2018-06-05 08:13:00Unknown Test Item Value Reference Range Comments Unknown (test code = 29859-6) 46.9 Unknown Unknown F Ordering Physician UnknownLaboratory Liusrzx1785-31-44 08:13:00Identifier [id number] Result Time 2018-06-05 08:13:00Unknown Test Item Value Reference Range Comments Unknown (test code = NullTestCode) 56.7 Unknown Unknown F Ordering Physician UnknownLaboratory Qrmtqxa9571-73-51 08:13:00Identifier [id number] 6 Result Time 2018-06-05 08:13:00Unknown Test Item Value Reference Range Comments Unknown (test code = 2160-0) 1.43 mg/dL Unknown 0.67-1.17 F Ordering Physician UnknownLaboratory Vqntzjm4432-25-91 08:13:00Identifier [id number] 6 Result Time 2018-06-05 08:13:00Unknown Test Item Value Reference Range Comments Unknown (test code = 2075-0) 104 mmol/L Unknown 101-111 F Ordering Physician UnknownLaboratory Kjgozzm5725-65-25 08:13:00Identifier [id number] 6 Result Time 2018-06-05 08:13:00Unknown Test Item Value Reference Range Comments Unknown (test code = 2028-9) 24 mmol/L Unknown 22-32 F Ordering Physician UnknownLaboratory Xekuxuy4398-48-94 08:13:00Identifier [id number]- 6 Result Time 2018-06-05 08:13:00Unknown Test Item Value Reference Range Comments Unknown (test code = 13562-2) 9.0 mg/dL Unknown 8.6-10.3 F Ordering Physician UnknownLaboratory Mctngop2367-93-03 08:13:00Identifier [id number]- 6 Result Time 2018-06-05 08:13:00Unknown Test Item Value Reference Range Comments Unknown (test code = 3094-0) 24 mg/dL Unknown 6-24 F Ordering Physician UnknownLaboratory Kqlmado7931-98-51 08:13:00Identifier [id number]- 6 Result Time 2018-06-05 08:13:00Unknown Test Item Value Reference Range Comments Unknown (test code = 3097-3) 16.8 Unknown 8-20 F Ordering Physician UnknownLaboratory Wykcxpk3442-23-52 08:13:00Identifier [id number]- 6 Result Time 2018-06-05 08:13:00Unknown Test Item Value Reference Range Comments Unknown (test code = 25639-3) 8 mmol/L Unknown 2-11 F Ordering Physician UnknownLaboratory Wtowqhn4265-18-38 08:13:00Identifier [id number]- 6 Result Time 2018-06-05 08:13:00Unknown Test Item Value Reference Range Comments Unknown (test code = 20627-9) 27.4 10^3/uL Unknown 3.5-10.8 F Ordering Physician UnknownLaboratory Muyzcmw6263-20-11 08:13:00Identifier [id number]- 6 Result Time 2018-06-05 08:13:00Unknown Test Item Value Reference Range Comments Unknown (test code = 788-0) 24 % Unknown 10.5-15 F Ordering Physician UnknownLaboratory Dppwfpd0581-72-46 08:13:00Identifier [id number]- 6 Result Time 2018-06-05 08:13:00Unknown Test Item Value Reference Range Comments Unknown (test code = 789-8) 5.19 10^6 /uL Unknown 4.18-5.48 F Ordering Physician UnknownLaboratory Hxxgdho1074-49-95 08:13:00Identifier [id number]- 6 Result Time 2018-06-05 08:13:00Unknown Test Item Value Reference Range Comments Unknown (test code = 777-3) 330 10^3/uL Unknown 150-450 F Ordering Physician UnknownLaboratory Aujcoxw8862-61-77 08:13:00Identifier [id number]- 6 Result Time 2018-06-05 08:13:00Unknown Test Item Value Reference Range Comments Unknown (test code = 78046-3) 0 Unknown Unknown F Ordering Physician UnknownLaboratory Wkzydbh6545-09-05 08:13:00Identifier [id number]- 6 Result Time 2018-06-05 08:13:00Unknown Test Item Value Reference Range Comments Unknown (test code = 771-6) 0 10^3/ul Unknown Unknown F Ordering Physician UnknownLaboratory Iopdgzn4432-48-50 08:13:00Identifier [id number]- 6 Result Time 2018-06-05 08:13:00Unknown Test Item Value Reference Range Comments Unknown (test code = 770-8) 84.7 % Unknown Unknown F Ordering Physician UnknownLaboratory Zdanxza4114-69-66 08:13:00Identifier [id number]- 6 Result Time 2018-06-05 08:13:00Unknown Test Item Value Reference Range Comments Unknown (test code = 5905-5) 8.6 % Unknown Unknown F Ordering Physician UnknownLaboratory Ynifvlj9196-96-04 08:13:00Identifier [id number]- 6 Result Time 2018-06-05 08:13:00Unknown Test Item Value Reference Range Comments Unknown (test code = 05094-6) 8.6 fL Unknown 7.4-10.4 F Ordering Physician UnknownLaboratory Ceqintz9356-68-65 08:13:00Identifier [id number]- 6 Result Time 2018-06-05 08:13:00Unknown Test Item Value Reference Range Comments Unknown (test code = 787-2) 78 fL Unknown 80-94 F Ordering Physician UnknownLaboratory Qvaetqp3045-91-12 08:13:00Identifier [id number]- 6 Result Time 2018-06-05 08:13:00Unknown Test Item Value Reference Range Comments Unknown (test code = 786-4) 31 g/dL Unknown 31-36 F Ordering Physician UnknownLaboratory Aohmxsz6192-45-09 08:13:00Identifier [id number]- 6 Result Time 2018-06-05 08:13:00Unknown Test Item Value Reference Range Comments Unknown (test code = 785-6) 24 pg Unknown 27-31 F Ordering Physician UnknownLaboratory Glwjltg5792-78-19 08:13:00Identifier [id number]- 6 Result Time 2018-06-05 08:13:00Unknown Test Item Value Reference Range Comments Unknown (test code = 736-9) 5.4 % Unknown Unknown F Ordering Physician UnknownLaboratory Pepiyli6458-32-78 08:13:00Identifier [id number]- 6 Result Time 2018-06-05 08:13:00Unknown Test Item Value Reference Range Comments Unknown (test code = 718-7) 12.3 g/dL Unknown 14.0-18.0 F Ordering Physician UnknownLaboratory Relssio0984-04-98 08:13:00Identifier [id number] 6 Result Time 2018-06-05 08:13:00Unknown Test Item Value Reference Range Comments Unknown (test code = 4544-3) 40 % Unknown 36-46 F Ordering Physician UnknownLaboratory Ypmrfnz6604-91-04 08:13:00Identifier [id number]- 6 Result Time 2018-06-05 08:13:00Unknown Test Item Value Reference Range Comments Unknown (test code = 713-8) 0.8 % Unknown Unknown F Ordering Physician UnknownLaboratory Svlkodv7365-75-23 08:13:00Identifier [id number]- 6 Result Time 2018-06-05 08:13:00Unknown Test Item Value Reference Range Comments Unknown (test code = 706-2) 0.5 % Unknown Unknown F Ordering Physician UnknownLaboratory Denlerc9801-77-52 08:13:00Identifier [id number]- 6 Result Time 2018-06-05 08:13:00Unknown Test Item Value Reference Range Comments Unknown (test code = GMO1603) 23.2 10^3/ul Unknown 1.5-7.7 F Ordering Physician UnknownLaboratory Wodcdlj9521-82-12 08:13:00Identifier [id number]- 6 Result Time 2018-06-05 08:13:00Unknown Test Item Value Reference Range Comments Unknown (test code = 742-7) 2.4 10^3/ul Unknown 0-0.8 F Ordering Physician UnknownLaboratory Bfbdfbz3875-39-05 08:13:00Identifier [id number]- 6 Result Time 2018-06-05 08:13:00Unknown Test Item Value Reference Range Comments Unknown (test code = 731-0) 1.5 10^3/ul Unknown 1.0-4.8 F Ordering Physician UnknownLaboratory Orlnijm8286-77-84 08:13:00Identifier [id number]- 6 Result Time 2018-06-05 08:13:00Unknown Test Item Value Reference Range Comments Unknown (test code = 711-2) 0.2 10^3/ul Unknown 0-0.6 F Ordering Physician UnknownLaboratory Wjntrvs8537-41-48 08:13:00Identifier [id number]- 6 Result Time 2018-06-05 08:13:00Unknown Test Item Value Reference Range Comments Unknown (test code = 704-7) 0.1 10^3/ul Unknown 0-0.2 F Ordering Physician UnknownLaboratory Jwmzdge0529-90-89 06:46:00Identifier [id number]- 6 Result Time 2018-06-04 06:46:00Unknown Test Item Value Reference Range Comments Unknown (test code = 98228-4) 0.05 ng/mL Unknown Unknown F Ordering Physician UnknownLaboratory Iyqqebe5096-72-42 06:46:00Identifier 08331- 6 Result Time 2018-06-04 06:46:00Unknown Test Item Value Reference Range Comments Unknown (test code = 2777-1) 2.8 mg/dL Unknown 2.5-5.0 F Ordering Physician UnknownLaboratory Wwjmcvx1682-88-09 06:46:00Identifier [id number]- 6 Result Time 2018-06-04 06:46:00Unknown Test Item Value Reference Range Comments Unknown (test code = 62180-4) 2.5 mg/dL Unknown 1.9-2.7 F Ordering Physician UnknownLaboratory Fdxamkz7081-22-85 10:48:00Identifier [id number]- 6 Result Time 2018-06-03 10:48:00Unknown Test Item Value Reference Range Comments Unknown (test code = NullTestCode) 6.0 Unknown 5-9 F Ordering Physician UnknownLaboratory Kjlwlva8051-89-44 10:48:00Identifier [id number]- 6 Result Time 2018-06-03 10:48:00Unknown Test Item Value Reference Range Comments Unknown (test code = 35622-3) 1.013 Unknown 1.010-1.030 F Ordering Physician UnknownLaboratory Ktjroaf3484-56-52 10:15:00Identifier [id number]- 6 Result Time 2018-06-03 10:15:00Unknown Test Item Value Reference Range Comments Unknown (test code = 3016-3) 3.38 mcIU/mL Unknown 0.34-5.60 F Ordering Physician UnknownLaboratory Vekwfad8311-15-52 10:15:00Identifier [id number]- 6 Result Time 2018-06-03 10:15:00Unknown Test Item Value Reference Range Comments Unknown (test code = 56454-3) 1.14 Unknown 0.77-1.02 F Ordering Physician UnknownLaboratory Xlfshaq4163-27-70 10:15:00Identifier [id number]- 6 Result Time 2018-06-03 10:15:00Unknown Test Item Value Reference Range Comments Unknown (test code = 45536-4) 365 pg/mL Unknown Unknown F Ordering Physician UnknownLaboratory Uihuxki8165-45-61 10:15:00Identifier [id number]- 6 Result Time 2018-06-03 10:15:00Unknown Test Item Value Reference Range Comments Unknown (test code = 2885-2) 8.9 g/dL Unknown 6.4-8.9 F Ordering Physician UnknownLaboratory Xctyvrl1927-96-04 10:15:00Identifier [id number]- 6 Result Time 2018-06-03 10:15:00Unknown Test Item Value Reference Range Comments Unknown (test code = 1975-2) 0.60 mg/dL Unknown 0.2-1.0 F Ordering Physician UnknownLaboratory Nuedocx4964-64-20 10:15:00Identifier [id number]- 6 Result Time 2018-06-03 10:15:00Unknown Test Item Value Reference Range Comments Unknown (test code = NullTestCode) 4.9 g/dL Unknown 2-4 F Ordering Physician UnknownLaboratory Jofjikn6930-50-09 10:15:00Identifier [id number]- 6 Result Time 2018-06-03 10:15:00Unknown Test Item Value Reference Range Comments Unknown (test code = 1988-5) 11.17 mg/L Unknown 0-8.00 F Ordering Physician UnknownLaboratory Qtpkxrj6517-42-13 10:15:00Identifier [id number]- 6 Result Time 2018-06-03 10:15:00Unknown Test Item Value Reference Range Comments Unknown (test code = 1920-8) 25 U/L Unknown 13-39 F Ordering Physician UnknownLaboratory Uumsbud4162-20-34 10:15:00Identifier [id number]- 6 Result Time 2018-06-03 10:15:00Unknown Test Item Value Reference Range Comments Unknown (test code = 6768-6) 153 U/L Unknown 34-104 F Ordering Physician UnknownLaboratory Hzedrzk6985-03-56 10:15:00Identifier [id number]- 6 Result Time 2018-06-03 10:15:00Unknown Test Item Value Reference Range Comments Unknown (test code = 1759-0) 0.8 Unknown 1-3 F Ordering Physician UnknownLaboratory Raxmkxz1262-45-96 10:15:00Identifier [id number]- 6 Result Time 2018-06-03 10:15:00Unknown Test Item Value Reference Range Comments Unknown (test code = 08000-2) 4.0 g/dL Unknown 3.2-5.2 F Ordering Physician UnknownLaboratory Tmnzaae7449-66-85 10:15:00Identifier [id number]- 6 Result Time 2018-06-03 10:15:00Unknown Test Item Value Reference Range Comments Unknown (test code = 1742-6) 13 U/L Unknown 7-52 F Ordering Physician UnknownLaboratory Modpeac0393-08-11 10:15:00Identifier 53396- 6 Result Time 2018-06-03 10:15:00Unknown Test Item Value Reference Range Comments Unknown (test code = 2524-7) 0.9 mmol/L Unknown 0.5-2.0 F Ordering Physician Unknown
--- OUTSIDE RECORDS SUMMARY | 2019-01-21 16:47 | XMS REPORT ---
:1930 Author Organization [facility] Care Team Providers Name Role Phone [...] Result Comments Laboratory Studies 2018-06-05 08:13:00 Identifier [id number] Result Time Unknown 2018-06-05 08:13:00 Test Item Value Reference Range Comments Unknown (test code = 2951-2) 136 mmol/L Unknown 135-145 F Ordering Physician UnknownLaboratory Amgbvch0144-60-90 08:13:00Identifier 77103- 6 Result Time 2018-06-05 08:13:00Unknown Test Item Value Reference Range Comments Unknown (test code = 2823-3) 4.0 mmol/L Unknown 3.5-5.0 F Ordering Physician UnknownLaboratory Rlamthk5277-42-31 08:13:00Identifier 59008- 6 Result Time 2018-06-05 08:13:00Unknown Test Item Value Reference Range Comments Unknown (test code = 2345-7) 87 mg/dL Unknown 70-100 F Ordering Physician UnknownLaboratory Bfpoodi3642-75-89 08:13:00Identifier 59420- 6 Result Time 2018-06-05 08:13:00Unknown Test Item Value Reference Range Comments Unknown (test code = 95810-7) 46.9 Unknown Unknown F Ordering Physician UnknownLaboratory Exibpqa9733-59-83 08:13:00Identifier 11815- 6 Result Time 2018-06-05 08:13:00Unknown Test Item Value Reference Range Comments Unknown (test code = NullTestCode) 56.7 Unknown Unknown F Ordering Physician UnknownLaboratory Tfhhjqv6546-08-85 08:13:00Identifier 23292- 6 Result Time 2018-06-05 08:13:00Unknown Test Item Value Reference Range Comments Unknown (test code = 2160-0) 1.43 mg/dL Unknown 0.67-1.17 F Ordering Physician UnknownLaboratory Lqxfmgy8215-79-84 08:13:00Identifier 51810- 6 Result Time 2018-06-05 08:13:00Unknown Test Item Value Reference Range Comments Unknown (test code = 2075-0) 104 mmol/L Unknown 101-111 F Ordering Physician UnknownLaboratory Yqpvqsw3624-28-26 08:13:00Identifier 46941- 6 Result Time 2018-06-05 08:13:00Unknown Test Item Value Reference Range Comments Unknown (test code = 2028-9) 24 mmol/L Unknown 22-32 F Ordering Physician UnknownLaboratory Wrddkqp5031-28-86 08:13:00Identifier 95616- 6 Result Time 2018-06-05 08:13:00Unknown Test Item Value Reference Range Comments Unknown (test code = 92124-3) 9.0 mg/dL Unknown 8.6-10.3 F Ordering Physician UnknownLaboratory Egoxaga3027-00-39 08:13:00Identifier 44324- 6 Result Time 2018-06-05 08:13:00Unknown Test Item Value Reference Range Comments Unknown (test code = 3094-0) 24 mg/dL Unknown 6-24 F Ordering Physician UnknownLaboratory Voknxjg2910-44-38 08:13:00Identifier 22146- 6 Result Time 2018-06-05 08:13:00Unknown Test Item Value Reference Range Comments Unknown (test code = 3097-3) 16.8 Unknown 8-20 F Ordering Physician UnknownLaboratory Rgifejn2473-04-12 08:13:00Identifier 41661- 6 Result Time 2018-06-05 08:13:00Unknown Test Item Value Reference Range Comments Unknown (test code = 69627-1) 8 mmol/L Unknown 2-11 F Ordering Physician UnknownLaboratory Lfgqyfh9805-91-78 08:13:00Identifier 93139- 6 Result Time 2018-06-05 08:13:00Unknown Test Item Value Reference Range Comments Unknown (test code = 51344-3) 27.4 10^3/uL Unknown 3.5-10.8 F Ordering Physician UnknownLaboratory Iimqvrn3642-93-99 08:13:00Identifier 59175- 6 Result Time 2018-06-05 08:13:00Unknown Test Item Value Reference Range Comments Unknown (test code = 788-0) 24 % Unknown 10.5-15 F Ordering Physician UnknownLaboratory Sasjyae3572-82-25 08:13:00Identifier 77138- 6 Result Time 2018-06-05 08:13:00Unknown Test Item Value Reference Range Comments Unknown (test code = 789-8) 5.19 10^6 /uL Unknown 4.18-5.48 F Ordering Physician UnknownLaboratory Vwssupx4791-85-31 08:13:00Identifier 42075- 6 Result Time 2018-06-05 08:13:00Unknown Test Item Value Reference Range Comments Unknown (test code = 777-3) 330 10^3/uL Unknown 150-450 F Ordering Physician UnknownLaboratory Spyowlj4225-31-97 08:13:00Identifier 57356- 6 Result Time 2018-06-05 08:13:00Unknown Test Item Value Reference Range Comments Unknown (test code = 54324-5) 0 Unknown Unknown F Ordering Physician UnknownLaboratory Umrekip0629-37-53 08:13:00Identifier 09520- 6 Result Time 2018-06-05 08:13:00Unknown Test Item Value Reference Range Comments Unknown (test code = 771-6) 0 10^3/ul Unknown Unknown F Ordering Physician UnknownLaboratory Yttxfpf5718-24-20 08:13:00Identifier 48666- 6 Result Time 2018-06-05 08:13:00Unknown Test Item Value Reference Range Comments Unknown (test code = 770-8) 84.7 % Unknown Unknown F Ordering Physician UnknownLaboratory Ftddsfd7785-18-12 08:13:00Identifier 32177- 6 Result Time 2018-06-05 08:13:00Unknown Test Item Value Reference Range Comments Unknown (test code = 5905-5) 8.6 % Unknown Unknown F Ordering Physician UnknownLaboratory Bmawhzd1706-99-06 08:13:00Identifier 85434- 6 Result Time 2018-06-05 08:13:00Unknown Test Item Value Reference Range Comments Unknown (test code = 44470-5) 8.6 fL Unknown 7.4-10.4 F Ordering Physician UnknownLaboratory Jziqgyf2598-08-20 08:13:00Identifier 77630- 6 Result Time 2018-06-05 08:13:00Unknown Test Item Value Reference Range Comments Unknown (test code = 787-2) 78 fL Unknown 80-94 F Ordering Physician UnknownLaboratory Umivrwj4272-99-70 08:13:00Identifier 13048- 6 Result Time 2018-06-05 08:13:00Unknown Test Item Value Reference Range Comments Unknown (test code = 786-4) 31 g/dL Unknown 31-36 F Ordering Physician UnknownLaboratory Jvnqzye3524-96-57 08:13:00Identifier 94729- 6 Result Time 2018-06-05 08:13:00Unknown Test Item Value Reference Range Comments Unknown (test code = 785-6) 24 pg Unknown 27-31 F Ordering Physician UnknownLaboratory Uaostpl2353-16-88 08:13:00Identifier 71011- 6 Result Time 2018-06-05 08:13:00Unknown Test Item Value Reference Range Comments Unknown (test code = 736-9) 5.4 % Unknown Unknown F Ordering Physician UnknownLaboratory Affwcod6902-24-58 08:13:00Identifier 54019- 6 Result Time 2018-06-05 08:13:00Unknown Test Item Value Reference Range Comments Unknown (test code = 718-7) 12.3 g/dL Unknown 14.0-18.0 F Ordering Physician UnknownLaboratory Vljxxpq3585-65-25 08:13:00Identifier 55441- 6 Result Time 2018-06-05 08:13:00Unknown Test Item Value Reference Range Comments Unknown (test code = 4544-3) 40 % Unknown 36-46 F Ordering Physician UnknownLaboratory Qiwrdqz2366-53-63 08:13:00Identifier 30509- 6 Result Time 2018-06-05 08:13:00Unknown Test Item Value Reference Range Comments Unknown (test code = 713-8) 0.8 % Unknown Unknown F Ordering Physician UnknownLaboratory Gotrdzo2626-56-57 08:13:00Identifier 30426- 6 Result Time 2018-06-05 08:13:00Unknown Test Item Value Reference Range Comments Unknown (test code = 706-2) 0.5 % Unknown Unknown F Ordering Physician UnknownLaboratory Lgsiczy8104-12-65 08:13:00Identifier 65103- 6 Result Time 2018-06-05 08:13:00Unknown Test Item Value Reference Range Comments Unknown (test code = NDT7715) 23.2 10^3/ul Unknown 1.5-7.7 F Ordering Physician UnknownLaboratory Orvhonn2848-07-31 08:13:00Identifier 55430- 6 Result Time 2018-06-05 08:13:00Unknown Test Item Value Reference Range Comments Unknown (test code = 742-7) 2.4 10^3/ul Unknown 0-0.8 F Ordering Physician UnknownLaboratory Vtlijgh0366-87-92 08:13:00Identifier 90226- 6 Result Time 2018-06-05 08:13:00Unknown Test Item Value Reference Range Comments Unknown (test code = 731-0) 1.5 10^3/ul Unknown 1.0-4.8 F Ordering Physician UnknownLaboratory Mvxomhv4985-00-45 08:13:00Identifier 09309- 6 Result Time 2018-06-05 08:13:00Unknown Test Item Value Reference Range Comments Unknown (test code = 711-2) 0.2 10^3/ul Unknown 0-0.6 F Ordering Physician UnknownLaboratory Gjklziz9224-82-16 08:13:00Identifier 40038- 6 Result Time 2018-06-05 08:13:00Unknown Test Item Value Reference Range Comments Unknown (test code = 704-7) 0.1 10^3/ul Unknown 0-0.2 F Ordering Physician UnknownLaboratory Nlgriqs6834-30-23 06:46:00Identifier 60823- 6 Result Time 2018-06-04 06:46:00Unknown Test Item Value Reference Range Comments Unknown (test code = 02322-7) 0.05 ng/mL Unknown Unknown F Ordering Physician UnknownLaboratory Ustoexx8239-59-72 06:46:00Identifier 12023- 6 Result Time 2018-06-04 06:46:00Unknown Test Item Value Reference Range Comments Unknown (test code = 2777-1) 2.8 mg/dL Unknown 2.5-5.0 F Ordering Physician UnknownLaboratory Srdjwju2407-73-10 06:46:00Identifier 87037- 6 Result Time 2018-06-04 06:46:00Unknown Test Item Value Reference Range Comments Unknown (test code = 27122-8) 2.5 mg/dL Unknown 1.9-2.7 F Ordering Physician UnknownLaboratory Pubnwwk3056-43-40 10:48:00Identifier 02030- 6 Result Time 2018-06-03 10:48:00Unknown Test Item Value Reference Range Comments Unknown (test code = NullTestCode) 6.0 Unknown 5-9 F Ordering Physician UnknownLaboratory Ktckprl5983-73-22 10:48:00Identifier 24082- 6 Result Time 2018-06-03 10:48:00Unknown Test Item Value Reference Range Comments Unknown (test code = 41850-6) 1.013 Unknown 1.010-1.030 F Ordering Physician UnknownLaboratory Erwfazk9978-84-94 10:15:00Identifier 51261- 6 Result Time 2018-06-03 10:15:00Unknown Test Item Value Reference Range Comments Unknown (test code = 3016-3) 3.38 mcIU/mL Unknown 0.34-5.60 F Ordering Physician UnknownLaboratory Xvtylqg3129-00-94 10:15:00Identifier 87108- 6 Result Time 2018-06-03 10:15:00Unknown Test Item Value Reference Range Comments Unknown (test code = 00362-9) 1.14 Unknown 0.77-1.02 F Ordering Physician UnknownLaboratory Csvtobw8068-43-58 10:15:00Identifier 57576- 6 Result Time 2018-06-03 10:15:00Unknown Test Item Value Reference Range Comments Unknown (test code = 14134-9) 365 pg/mL Unknown Unknown F Ordering Physician UnknownLaboratory Wgoaabb7845-76-98 10:15:00Identifier 00235- 6 Result Time 2018-06-03 10:15:00Unknown Test Item Value Reference Range Comments Unknown (test code = 2885-2) 8.9 g/dL Unknown 6.4-8.9 F Ordering Physician UnknownLaboratory Zqwwjsu6324-91-45 10:15:00Identifier 36938- 6 Result Time 2018-06-03 10:15:00Unknown Test Item Value Reference Range Comments Unknown (test code = 1975-2) 0.60 mg/dL Unknown 0.2-1.0 F Ordering Physician UnknownLaboratory Civdxdr1168-11-68 10:15:00Identifier 10452- 6 Result Time 2018-06-03 10:15:00Unknown Test Item Value Reference Range Comments Unknown (test code = NullTestCode) 4.9 g/dL Unknown 2-4 F Ordering Physician UnknownLaboratory Fquibkd4239-21-00 10:15:00Identifier 87580- 6 Result Time 2018-06-03 10:15:00Unknown Test Item Value Reference Range Comments Unknown (test code = 1988-5) 11.17 mg/L Unknown 0-8.00 F Ordering Physician UnknownLaboratory Bcqtwif7314-44-33 10:15:00Identifier 25949- 6 Result Time 2018-06-03 10:15:00Unknown Test Item Value Reference Range Comments Unknown (test code = 1920-8) 25 U/L Unknown 13-39 F Ordering Physician UnknownLaboratory Ijdggkd0588-21-98 10:15:00Identifier 24389- 6 Result Time 2018-06-03 10:15:00Unknown Test Item Value Reference Range Comments Unknown (test code = 6768-6) 153 U/L Unknown 34-104 F Ordering Physician UnknownLaboratory Pghjojz2982-45-83 10:15:00Identifier 85989- 6 Result Time 2018-06-03 10:15:00Unknown Test Item Value Reference Range Comments Unknown (test code = 1759-0) 0.8 Unknown 1-3 F Ordering Physician UnknownLaboratory Ycgcojn0366-01-30 10:15:00Identifier 58662- 6 Result Time 2018-06-03 10:15:00Unknown Test Item Value Reference Range Comments Unknown (test code = 74678-5) 4.0 g/dL Unknown 3.2-5.2 F Ordering Physician UnknownLaboratory Cpdjexj9649-73-61 10:15:00Identifier 31781- 6 Result Time 2018-06-03 10:15:00Unknown Test Item Value Reference Range Comments Unknown (test code = 1742-6) 13 U/L Unknown 7-52 F Ordering Physician UnknownLaboratory Ggtsieu1544-27-59 10:15:00Identifier 38038- 6 Result Time 2018-06-03 10:15:00Unknown Test Item Value Reference Range Comments Unknown (test code = 2524-7) 0.9 mmol/L Unknown 0.5-2.0 F Ordering Physician Unknown
--- OUTSIDE RECORDS SUMMARY | 2019-01-21 16:47 | XMS REPORT ---
:1930 Author Organization [facility] Care Team Providers Name Role Phone [...] Result Comments Laboratory Studies 2018-06-05 08:13:00 Identifier [id number] Result Time Unknown 2018-06-05 08:13:00 Test Item Value Reference Range Comments Unknown (test code = 2951-2) 136 mmol/L Unknown 135-145 F Ordering Physician UnknownLaboratory Sriggbh9624-16-64 08:13:00Identifier 15900- 6 Result Time 2018-06-05 08:13:00Unknown Test Item Value Reference Range Comments Unknown (test code = 2823-3) 4.0 mmol/L Unknown 3.5-5.0 F Ordering Physician UnknownLaboratory Ejvswaw1902-57-44 08:13:00Identifier 27287- 6 Result Time 2018-06-05 08:13:00Unknown Test Item Value Reference Range Comments Unknown (test code = 2345-7) 87 mg/dL Unknown 70-100 F Ordering Physician UnknownLaboratory Tknchwr7670-38-65 08:13:00Identifier 76804- 6 Result Time 2018-06-05 08:13:00Unknown Test Item Value Reference Range Comments Unknown (test code = 51027-7) 46.9 Unknown Unknown F Ordering Physician UnknownLaboratory Reudvsl5230-97-19 08:13:00Identifier 60075- 6 Result Time 2018-06-05 08:13:00Unknown Test Item Value Reference Range Comments Unknown (test code = NullTestCode) 56.7 Unknown Unknown F Ordering Physician UnknownLaboratory Wygaeaz0570-23-92 08:13:00Identifier 14146- 6 Result Time 2018-06-05 08:13:00Unknown Test Item Value Reference Range Comments Unknown (test code = 2160-0) 1.43 mg/dL Unknown 0.67-1.17 F Ordering Physician UnknownLaboratory Kfauziy8165-55-30 08:13:00Identifier 54998- 6 Result Time 2018-06-05 08:13:00Unknown Test Item Value Reference Range Comments Unknown (test code = 2075-0) 104 mmol/L Unknown 101-111 F Ordering Physician UnknownLaboratory Ymsdtdd0815-78-01 08:13:00Identifier 13113- 6 Result Time 2018-06-05 08:13:00Unknown Test Item Value Reference Range Comments Unknown (test code = 2028-9) 24 mmol/L Unknown 22-32 F Ordering Physician UnknownLaboratory Kepzvjd4072-89-04 08:13:00Identifier 81334- 6 Result Time 2018-06-05 08:13:00Unknown Test Item Value Reference Range Comments Unknown (test code = 66715-0) 9.0 mg/dL Unknown 8.6-10.3 F Ordering Physician UnknownLaboratory Zqnccho4511-76-88 08:13:00Identifier 21901- 6 Result Time 2018-06-05 08:13:00Unknown Test Item Value Reference Range Comments Unknown (test code = 3094-0) 24 mg/dL Unknown 6-24 F Ordering Physician UnknownLaboratory Viesvrc8919-71-06 08:13:00Identifier 09379- 6 Result Time 2018-06-05 08:13:00Unknown Test Item Value Reference Range Comments Unknown (test code = 3097-3) 16.8 Unknown 8-20 F Ordering Physician UnknownLaboratory Wnnnxcs6948-57-13 08:13:00Identifier 57344- 6 Result Time 2018-06-05 08:13:00Unknown Test Item Value Reference Range Comments Unknown (test code = 20016-2) 8 mmol/L Unknown 2-11 F Ordering Physician UnknownLaboratory Ayoggdy7254-83-69 08:13:00Identifier 73470- 6 Result Time 2018-06-05 08:13:00Unknown Test Item Value Reference Range Comments Unknown (test code = 12831-4) 27.4 10^3/uL Unknown 3.5-10.8 F Ordering Physician UnknownLaboratory Cetnyag7062-79-62 08:13:00Identifier 20509- 6 Result Time 2018-06-05 08:13:00Unknown Test Item Value Reference Range Comments Unknown (test code = 788-0) 24 % Unknown 10.5-15 F Ordering Physician UnknownLaboratory Odtopav0001-29-09 08:13:00Identifier 68410- 6 Result Time 2018-06-05 08:13:00Unknown Test Item Value Reference Range Comments Unknown (test code = 789-8) 5.19 10^6 /uL Unknown 4.18-5.48 F Ordering Physician UnknownLaboratory Hqrawur7328-68-30 08:13:00Identifier 23685- 6 Result Time 2018-06-05 08:13:00Unknown Test Item Value Reference Range Comments Unknown (test code = 777-3) 330 10^3/uL Unknown 150-450 F Ordering Physician UnknownLaboratory Swywecv6754-07-37 08:13:00Identifier 20474- 6 Result Time 2018-06-05 08:13:00Unknown Test Item Value Reference Range Comments Unknown (test code = 70174-0) 0 Unknown Unknown F Ordering Physician UnknownLaboratory Dfeekcu1087-64-38 08:13:00Identifier 34960- 6 Result Time 2018-06-05 08:13:00Unknown Test Item Value Reference Range Comments Unknown (test code = 771-6) 0 10^3/ul Unknown Unknown F Ordering Physician UnknownLaboratory Yyynnwa5617-04-15 08:13:00Identifier 82086- 6 Result Time 2018-06-05 08:13:00Unknown Test Item Value Reference Range Comments Unknown (test code = 770-8) 84.7 % Unknown Unknown F Ordering Physician UnknownLaboratory Ujfgrkk2447-29-76 08:13:00Identifier 98561- 6 Result Time 2018-06-05 08:13:00Unknown Test Item Value Reference Range Comments Unknown (test code = 5905-5) 8.6 % Unknown Unknown F Ordering Physician UnknownLaboratory Mffvazt8012-92-74 08:13:00Identifier 01713- 6 Result Time 2018-06-05 08:13:00Unknown Test Item Value Reference Range Comments Unknown (test code = 93013-3) 8.6 fL Unknown 7.4-10.4 F Ordering Physician UnknownLaboratory Jtcxtrr1120-49-26 08:13:00Identifier 35125- 6 Result Time 2018-06-05 08:13:00Unknown Test Item Value Reference Range Comments Unknown (test code = 787-2) 78 fL Unknown 80-94 F Ordering Physician UnknownLaboratory Qxycwru8399-24-62 08:13:00Identifier 12293- 6 Result Time 2018-06-05 08:13:00Unknown Test Item Value Reference Range Comments Unknown (test code = 786-4) 31 g/dL Unknown 31-36 F Ordering Physician UnknownLaboratory Vgfdwmr7067-25-58 08:13:00Identifier 40101- 6 Result Time 2018-06-05 08:13:00Unknown Test Item Value Reference Range Comments Unknown (test code = 785-6) 24 pg Unknown 27-31 F Ordering Physician UnknownLaboratory Qlwslxm4148-45-08 08:13:00Identifier 86101- 6 Result Time 2018-06-05 08:13:00Unknown Test Item Value Reference Range Comments Unknown (test code = 736-9) 5.4 % Unknown Unknown F Ordering Physician UnknownLaboratory Edcuwwi0245-60-52 08:13:00Identifier 82854- 6 Result Time 2018-06-05 08:13:00Unknown Test Item Value Reference Range Comments Unknown (test code = 718-7) 12.3 g/dL Unknown 14.0-18.0 F Ordering Physician UnknownLaboratory Qwrnsyj6547-69-85 08:13:00Identifier 87372- 6 Result Time 2018-06-05 08:13:00Unknown Test Item Value Reference Range Comments Unknown (test code = 4544-3) 40 % Unknown 36-46 F Ordering Physician UnknownLaboratory Sldqybx9100-34-87 08:13:00Identifier 05049- 6 Result Time 2018-06-05 08:13:00Unknown Test Item Value Reference Range Comments Unknown (test code = 713-8) 0.8 % Unknown Unknown F Ordering Physician UnknownLaboratory Rbadpmr4776-79-89 08:13:00Identifier 83521- 6 Result Time 2018-06-05 08:13:00Unknown Test Item Value Reference Range Comments Unknown (test code = 706-2) 0.5 % Unknown Unknown F Ordering Physician UnknownLaboratory Thivvuv7656-72-46 08:13:00Identifier 01658- 6 Result Time 2018-06-05 08:13:00Unknown Test Item Value Reference Range Comments Unknown (test code = AFZ8451) 23.2 10^3/ul Unknown 1.5-7.7 F Ordering Physician UnknownLaboratory Fzqhfuo0659-74-17 08:13:00Identifier 15589- 6 Result Time 2018-06-05 08:13:00Unknown Test Item Value Reference Range Comments Unknown (test code = 742-7) 2.4 10^3/ul Unknown 0-0.8 F Ordering Physician UnknownLaboratory Knquyfx2008-81-17 08:13:00Identifier 82249- 6 Result Time 2018-06-05 08:13:00Unknown Test Item Value Reference Range Comments Unknown (test code = 731-0) 1.5 10^3/ul Unknown 1.0-4.8 F Ordering Physician UnknownLaboratory Ibbrpys8964-56-11 08:13:00Identifier 03058- 6 Result Time 2018-06-05 08:13:00Unknown Test Item Value Reference Range Comments Unknown (test code = 711-2) 0.2 10^3/ul Unknown 0-0.6 F Ordering Physician UnknownLaboratory Oqcajbw8651-75-68 08:13:00Identifier 75441- 6 Result Time 2018-06-05 08:13:00Unknown Test Item Value Reference Range Comments Unknown (test code = 704-7) 0.1 10^3/ul Unknown 0-0.2 F Ordering Physician UnknownLaboratory Pwkmxhl0660-24-63 06:46:00Identifier 91027- 6 Result Time 2018-06-04 06:46:00Unknown Test Item Value Reference Range Comments Unknown (test code = 64301-9) 0.05 ng/mL Unknown Unknown F Ordering Physician UnknownLaboratory Mrutyqs5369-86-65 06:46:00Identifier 06781- 6 Result Time 2018-06-04 06:46:00Unknown Test Item Value Reference Range Comments Unknown (test code = 2777-1) 2.8 mg/dL Unknown 2.5-5.0 F Ordering Physician UnknownLaboratory Ngfmbme2918-90-26 06:46:00Identifier 51444- 6 Result Time 2018-06-04 06:46:00Unknown Test Item Value Reference Range Comments Unknown (test code = 94288-0) 2.5 mg/dL Unknown 1.9-2.7 F Ordering Physician UnknownLaboratory Vnkfrrt3281-59-27 10:48:00Identifier 38932- 6 Result Time 2018-06-03 10:48:00Unknown Test Item Value Reference Range Comments Unknown (test code = NullTestCode) 6.0 Unknown 5-9 F Ordering Physician UnknownLaboratory Jgdkrzs8554-12-04 10:48:00Identifier 69140- 6 Result Time 2018-06-03 10:48:00Unknown Test Item Value Reference Range Comments Unknown (test code = 77623-3) 1.013 Unknown 1.010-1.030 F Ordering Physician UnknownLaboratory Bhxilht3644-28-63 10:15:00Identifier 49850- 6 Result Time 2018-06-03 10:15:00Unknown Test Item Value Reference Range Comments Unknown (test code = 3016-3) 3.38 mcIU/mL Unknown 0.34-5.60 F Ordering Physician UnknownLaboratory Rebojes1749-12-19 10:15:00Identifier 84453- 6 Result Time 2018-06-03 10:15:00Unknown Test Item Value Reference Range Comments Unknown (test code = 93054-6) 1.14 Unknown 0.77-1.02 F Ordering Physician UnknownLaboratory Rvspcxj0768-25-26 10:15:00Identifier 03023- 6 Result Time 2018-06-03 10:15:00Unknown Test Item Value Reference Range Comments Unknown (test code = 62484-1) 365 pg/mL Unknown Unknown F Ordering Physician UnknownLaboratory Aytlhcg0728-44-49 10:15:00Identifier 23395- 6 Result Time 2018-06-03 10:15:00Unknown Test Item Value Reference Range Comments Unknown (test code = 2885-2) 8.9 g/dL Unknown 6.4-8.9 F Ordering Physician UnknownLaboratory Wodqera9710-56-59 10:15:00Identifier 00082- 6 Result Time 2018-06-03 10:15:00Unknown Test Item Value Reference Range Comments Unknown (test code = 1975-2) 0.60 mg/dL Unknown 0.2-1.0 F Ordering Physician UnknownLaboratory Ekftzlk7036-91-54 10:15:00Identifier 31350- 6 Result Time 2018-06-03 10:15:00Unknown Test Item Value Reference Range Comments Unknown (test code = NullTestCode) 4.9 g/dL Unknown 2-4 F Ordering Physician UnknownLaboratory Kgnkbxu0675-74-28 10:15:00Identifier 27270- 6 Result Time 2018-06-03 10:15:00Unknown Test Item Value Reference Range Comments Unknown (test code = 1988-5) 11.17 mg/L Unknown 0-8.00 F Ordering Physician UnknownLaboratory Jnylzto6885-49-60 10:15:00Identifier 49682- 6 Result Time 2018-06-03 10:15:00Unknown Test Item Value Reference Range Comments Unknown (test code = 1920-8) 25 U/L Unknown 13-39 F Ordering Physician UnknownLaboratory Waknrqb5577-59-56 10:15:00Identifier 00304- 6 Result Time 2018-06-03 10:15:00Unknown Test Item Value Reference Range Comments Unknown (test code = 6768-6) 153 U/L Unknown 34-104 F Ordering Physician UnknownLaboratory Vljsvbz6981-46-65 10:15:00Identifier 05334- 6 Result Time 2018-06-03 10:15:00Unknown Test Item Value Reference Range Comments Unknown (test code = 1759-0) 0.8 Unknown 1-3 F Ordering Physician UnknownLaboratory Vpqizzp6136-72-33 10:15:00Identifier 73182- 6 Result Time 2018-06-03 10:15:00Unknown Test Item Value Reference Range Comments Unknown (test code = 83451-2) 4.0 g/dL Unknown 3.2-5.2 F Ordering Physician UnknownLaboratory Tzlkxxr0261-17-52 10:15:00Identifier 96512- 6 Result Time 2018-06-03 10:15:00Unknown Test Item Value Reference Range Comments Unknown (test code = 1742-6) 13 U/L Unknown 7-52 F Ordering Physician UnknownLaboratory Jncyngx0491-61-91 10:15:00Identifier 45530- 6 Result Time 2018-06-03 10:15:00Unknown Test Item Value Reference Range Comments Unknown (test code = 2524-7) 0.9 mmol/L Unknown 0.5-2.0 F Ordering Physician Unknown
--- OUTSIDE RECORDS SUMMARY | 2019-01-21 16:47 | XMS REPORT ---
:1930 Author Organization [facility] Care Team Providers Name Role Phone Unavailable [...] Result Comments Laboratory Studies 2018-06-05 08:13:00 Identifier [id number] Result Time Unknown 2018-06-05 08:13:00 Test Item Value Reference Range Comments Unknown (test code = 2951-2) 136 mmol/L Unknown 135-145 F Ordering Physician UnknownLaboratory Jagxofi6452-46-08 08:13:00Identifier 05540- 6 Result Time 2018-06-05 08:13:00Unknown Test Item Value Reference Range Comments Unknown (test code = 2823-3) 4.0 mmol/L Unknown 3.5-5.0 F Ordering Physician UnknownLaboratory Cgdyebe7760-24-65 08:13:00Identifier 61141- 6 Result Time 2018-06-05 08:13:00Unknown Test Item Value Reference Range Comments Unknown (test code = 2345-7) 87 mg/dL Unknown 70-100 F Ordering Physician UnknownLaboratory Dekrcjw7814-47-78 08:13:00Identifier 47273- 6 Result Time 2018-06-05 08:13:00Unknown Test Item Value Reference Range Comments Unknown (test code = 38967-0) 46.9 Unknown Unknown F Ordering Physician UnknownLaboratory Grinved6008-01-30 08:13:00Identifier 78631- 6 Result Time 2018-06-05 08:13:00Unknown Test Item Value Reference Range Comments Unknown (test code = NullTestCode) 56.7 Unknown Unknown F Ordering Physician UnknownLaboratory Mwnhyir7957-68-45 08:13:00Identifier 64843- 6 Result Time 2018-06-05 08:13:00Unknown Test Item Value Reference Range Comments Unknown (test code = 2160-0) 1.43 mg/dL Unknown 0.67-1.17 F Ordering Physician UnknownLaboratory Bsearog9301-28-98 08:13:00Identifier 51378- 6 Result Time 2018-06-05 08:13:00Unknown Test Item Value Reference Range Comments Unknown (test code = 2075-0) 104 mmol/L Unknown 101-111 F Ordering Physician UnknownLaboratory Eaecshz6171-54-12 08:13:00Identifier 99094- 6 Result Time 2018-06-05 08:13:00Unknown Test Item Value Reference Range Comments Unknown (test code = 2028-9) 24 mmol/L Unknown 22-32 F Ordering Physician UnknownLaboratory Oxwgdrm8199-45-98 08:13:00Identifier 28011- 6 Result Time 2018-06-05 08:13:00Unknown Test Item Value Reference Range Comments Unknown (test code = 28231-2) 9.0 mg/dL Unknown 8.6-10.3 F Ordering Physician UnknownLaboratory Ylaobok2272-02-84 08:13:00Identifier 23723- 6 Result Time 2018-06-05 08:13:00Unknown Test Item Value Reference Range Comments Unknown (test code = 3094-0) 24 mg/dL Unknown 6-24 F Ordering Physician UnknownLaboratory Ieybecg2186-10-48 08:13:00Identifier 49473- 6 Result Time 2018-06-05 08:13:00Unknown Test Item Value Reference Range Comments Unknown (test code = 3097-3) 16.8 Unknown 8-20 F Ordering Physician UnknownLaboratory Igiivnm0261-75-85 08:13:00Identifier 07180- 6 Result Time 2018-06-05 08:13:00Unknown Test Item Value Reference Range Comments Unknown (test code = 56444-4) 8 mmol/L Unknown 2-11 F Ordering Physician UnknownLaboratory Rmnsglz7778-16-15 08:13:00Identifier 97825- 6 Result Time 2018-06-05 08:13:00Unknown Test Item Value Reference Range Comments Unknown (test code = 75217-6) 27.4 10^3/uL Unknown 3.5-10.8 F Ordering Physician UnknownLaboratory Zluqqcl8204-93-20 08:13:00Identifier 21041- 6 Result Time 2018-06-05 08:13:00Unknown Test Item Value Reference Range Comments Unknown (test code = 788-0) 24 % Unknown 10.5-15 F Ordering Physician UnknownLaboratory Bqliyrw8297-51-62 08:13:00Identifier 49759- 6 Result Time 2018-06-05 08:13:00Unknown Test Item Value Reference Range Comments Unknown (test code = 789-8) 5.19 10^6 /uL Unknown 4.18-5.48 F Ordering Physician UnknownLaboratory Nqpjhna1808-09-86 08:13:00Identifier 54074- 6 Result Time 2018-06-05 08:13:00Unknown Test Item Value Reference Range Comments Unknown (test code = 777-3) 330 10^3/uL Unknown 150-450 F Ordering Physician UnknownLaboratory Wwffwia3201-32-10 08:13:00Identifier 20574- 6 Result Time 2018-06-05 08:13:00Unknown Test Item Value Reference Range Comments Unknown (test code = 68089-3) 0 Unknown Unknown F Ordering Physician UnknownLaboratory Mgrmsjs9602-62-02 08:13:00Identifier 33098- 6 Result Time 2018-06-05 08:13:00Unknown Test Item Value Reference Range Comments Unknown (test code = 771-6) 0 10^3/ul Unknown Unknown F Ordering Physician UnknownLaboratory Urxlhbk6473-49-30 08:13:00Identifier 33228- 6 Result Time 2018-06-05 08:13:00Unknown Test Item Value Reference Range Comments Unknown (test code = 770-8) 84.7 % Unknown Unknown F Ordering Physician UnknownLaboratory Hkdlhsk0926-94-56 08:13:00Identifier 47222- 6 Result Time 2018-06-05 08:13:00Unknown Test Item Value Reference Range Comments Unknown (test code = 5905-5) 8.6 % Unknown Unknown F Ordering Physician UnknownLaboratory Kftamjh6333-39-41 08:13:00Identifier 02276- 6 Result Time 2018-06-05 08:13:00Unknown Test Item Value Reference Range Comments Unknown (test code = 05343-8) 8.6 fL Unknown 7.4-10.4 F Ordering Physician UnknownLaboratory Jcnhhwr9308-48-03 08:13:00Identifier 13461- 6 Result Time 2018-06-05 08:13:00Unknown Test Item Value Reference Range Comments Unknown (test code = 787-2) 78 fL Unknown 80-94 F Ordering Physician UnknownLaboratory Ovyhinl4511-64-73 08:13:00Identifier 48409- 6 Result Time 2018-06-05 08:13:00Unknown Test Item Value Reference Range Comments Unknown (test code = 786-4) 31 g/dL Unknown 31-36 F Ordering Physician UnknownLaboratory Deyebko6809-09-62 08:13:00Identifier 69849- 6 Result Time 2018-06-05 08:13:00Unknown Test Item Value Reference Range Comments Unknown (test code = 785-6) 24 pg Unknown 27-31 F Ordering Physician UnknownLaboratory Apeuljv1972-70-98 08:13:00Identifier 50502- 6 Result Time 2018-06-05 08:13:00Unknown Test Item Value Reference Range Comments Unknown (test code = 736-9) 5.4 % Unknown Unknown F Ordering Physician UnknownLaboratory Ogtwgmb3735-60-69 08:13:00Identifier 41375- 6 Result Time 2018-06-05 08:13:00Unknown Test Item Value Reference Range Comments Unknown (test code = 718-7) 12.3 g/dL Unknown 14.0-18.0 F Ordering Physician UnknownLaboratory Fhkzqqc6751-96-71 08:13:00Identifier 53742- 6 Result Time 2018-06-05 08:13:00Unknown Test Item Value Reference Range Comments Unknown (test code = 4544-3) 40 % Unknown 36-46 F Ordering Physician UnknownLaboratory Ewziwio6284-39-15 08:13:00Identifier 34611- 6 Result Time 2018-06-05 08:13:00Unknown Test Item Value Reference Range Comments Unknown (test code = 713-8) 0.8 % Unknown Unknown F Ordering Physician UnknownLaboratory Unobzar0195-16-41 08:13:00Identifier 70322- 6 Result Time 2018-06-05 08:13:00Unknown Test Item Value Reference Range Comments Unknown (test code = 706-2) 0.5 % Unknown Unknown F Ordering Physician UnknownLaboratory Skxbdof6406-94-25 08:13:00Identifier 26944- 6 Result Time 2018-06-05 08:13:00Unknown Test Item Value Reference Range Comments Unknown (test code = FZB1746) 23.2 10^3/ul Unknown 1.5-7.7 F Ordering Physician UnknownLaboratory Sxlgujx0232-90-46 08:13:00Identifier 28231- 6 Result Time 2018-06-05 08:13:00Unknown Test Item Value Reference Range Comments Unknown (test code = 742-7) 2.4 10^3/ul Unknown 0-0.8 F Ordering Physician UnknownLaboratory Qfytiyq0221-51-13 08:13:00Identifier 08116- 6 Result Time 2018-06-05 08:13:00Unknown Test Item Value Reference Range Comments Unknown (test code = 731-0) 1.5 10^3/ul Unknown 1.0-4.8 F Ordering Physician UnknownLaboratory Yecdvaf4030-92-59 08:13:00Identifier 59111- 6 Result Time 2018-06-05 08:13:00Unknown Test Item Value Reference Range Comments Unknown (test code = 711-2) 0.2 10^3/ul Unknown 0-0.6 F Ordering Physician UnknownLaboratory Xhdrssk0037-45-36 08:13:00Identifier 82831- 6 Result Time 2018-06-05 08:13:00Unknown Test Item Value Reference Range Comments Unknown (test code = 704-7) 0.1 10^3/ul Unknown 0-0.2 F Ordering Physician UnknownLaboratory Mpdusky6073-42-00 06:46:00Identifier 04330- 6 Result Time 2018-06-04 06:46:00Unknown Test Item Value Reference Range Comments Unknown (test code = 91174-1) 0.05 ng/mL Unknown Unknown F Ordering Physician UnknownLaboratory Bmctlzn5010-40-99 06:46:00Identifier 89640- 6 Result Time 2018-06-04 06:46:00Unknown Test Item Value Reference Range Comments Unknown (test code = 2777-1) 2.8 mg/dL Unknown 2.5-5.0 F Ordering Physician UnknownLaboratory Pbqlwxq3370-35-47 06:46:00Identifier 23578- 6 Result Time 2018-06-04 06:46:00Unknown Test Item Value Reference Range Comments Unknown (test code = 11445-7) 2.5 mg/dL Unknown 1.9-2.7 F Ordering Physician UnknownLaboratory Xkbwiyz8535-16-57 10:48:00Identifier 56485- 6 Result Time 2018-06-03 10:48:00Unknown Test Item Value Reference Range Comments Unknown (test code = NullTestCode) 6.0 Unknown 5-9 F Ordering Physician UnknownLaboratory Guyylvy4807-20-94 10:48:00Identifier 64705- 6 Result Time 2018-06-03 10:48:00Unknown Test Item Value Reference Range Comments Unknown (test code = 46347-4) 1.013 Unknown 1.010-1.030 F Ordering Physician UnknownLaboratory Ibbfgyi9170-94-47 10:15:00Identifier 54327- 6 Result Time 2018-06-03 10:15:00Unknown Test Item Value Reference Range Comments Unknown (test code = 3016-3) 3.38 mcIU/mL Unknown 0.34-5.60 F Ordering Physician UnknownLaboratory Qbbvnqd9634-52-67 10:15:00Identifier 94935- 6 Result Time 2018-06-03 10:15:00Unknown Test Item Value Reference Range Comments Unknown (test code = 28311-5) 1.14 Unknown 0.77-1.02 F Ordering Physician UnknownLaboratory Opxayah4341-03-93 10:15:00Identifier 43308- 6 Result Time 2018-06-03 10:15:00Unknown Test Item Value Reference Range Comments Unknown (test code = 37124-9) 365 pg/mL Unknown Unknown F Ordering Physician UnknownLaboratory Njjiels5068-12-95 10:15:00Identifier 96786- 6 Result Time 2018-06-03 10:15:00Unknown Test Item Value Reference Range Comments Unknown (test code = 2885-2) 8.9 g/dL Unknown 6.4-8.9 F Ordering Physician UnknownLaboratory Eanaimh9572-99-41 10:15:00Identifier 01459- 6 Result Time 2018-06-03 10:15:00Unknown Test Item Value Reference Range Comments Unknown (test code = 1975-2) 0.60 mg/dL Unknown 0.2-1.0 F Ordering Physician UnknownLaboratory Ztfhufu7826-80-42 10:15:00Identifier 37350- 6 Result Time 2018-06-03 10:15:00Unknown Test Item Value Reference Range Comments Unknown (test code = NullTestCode) 4.9 g/dL Unknown 2-4 F Ordering Physician UnknownLaboratory Ajjnoas1770-00-47 10:15:00Identifier 76558- 6 Result Time 2018-06-03 10:15:00Unknown Test Item Value Reference Range Comments Unknown (test code = 1988-5) 11.17 mg/L Unknown 0-8.00 F Ordering Physician UnknownLaboratory Njaosfl5536-06-69 10:15:00Identifier 88225- 6 Result Time 2018-06-03 10:15:00Unknown Test Item Value Reference Range Comments Unknown (test code = 1920-8) 25 U/L Unknown 13-39 F Ordering Physician UnknownLaboratory Gssjkkc3079-64-44 10:15:00Identifier 44634- 6 Result Time 2018-06-03 10:15:00Unknown Test Item Value Reference Range Comments Unknown (test code = 6768-6) 153 U/L Unknown 34-104 F Ordering Physician UnknownLaboratory Ogkcdbb5127-83-25 10:15:00Identifier 79371- 6 Result Time 2018-06-03 10:15:00Unknown Test Item Value Reference Range Comments Unknown (test code = 1759-0) 0.8 Unknown 1-3 F Ordering Physician UnknownLaboratory Pwhndjf2670-62-28 10:15:00Identifier 84830- 6 Result Time 2018-06-03 10:15:00Unknown Test Item Value Reference Range Comments Unknown (test code = 77374-4) 4.0 g/dL Unknown 3.2-5.2 F Ordering Physician UnknownLaboratory Zrcbmvc2517-64-35 10:15:00Identifier 42849- 6 Result Time 2018-06-03 10:15:00Unknown Test Item Value Reference Range Comments Unknown (test code = 1742-6) 13 U/L Unknown 7-52 F Ordering Physician UnknownLaboratory Mgxmpmt6052-90-87 10:15:00Identifier 44038- 6 Result Time 2018-06-03 10:15:00Unknown Test Item Value Reference Range Comments Unknown (test code = 2524-7) 0.9 mmol/L Unknown 0.5-2.0 F Ordering Physician Unknown
--- OUTSIDE RECORDS SUMMARY | 2019-01-21 16:47 | XMS REPORT ---
:1930 Author Organization [facility] Care Team Providers Name Role Phone Unavailable [...] Result Comments Laboratory Studies 2018-06-05 08:13:00 Identifier [id number] Result Time Unknown 2018-06-05 08:13:00 Test Item Value Reference Range Comments Unknown (test code = 2951-2) 136 mmol/L Unknown 135-145 F Ordering Physician UnknownLaboratory Bovbvhn0627-60-64 08:13:00Identifier 11469- 6 Result Time 2018-06-05 08:13:00Unknown Test Item Value Reference Range Comments Unknown (test code = 2823-3) 4.0 mmol/L Unknown 3.5-5.0 F Ordering Physician UnknownLaboratory Vpxjezm1192-55-54 08:13:00Identifier 26595- 6 Result Time 2018-06-05 08:13:00Unknown Test Item Value Reference Range Comments Unknown (test code = 2345-7) 87 mg/dL Unknown 70-100 F Ordering Physician UnknownLaboratory Czdirtl8673-70-60 08:13:00Identifier 63956- 6 Result Time 2018-06-05 08:13:00Unknown Test Item Value Reference Range Comments Unknown (test code = 60034-8) 46.9 Unknown Unknown F Ordering Physician UnknownLaboratory Dapfnfs1025-05-20 08:13:00Identifier 05305- 6 Result Time 2018-06-05 08:13:00Unknown Test Item Value Reference Range Comments Unknown (test code = NullTestCode) 56.7 Unknown Unknown F Ordering Physician UnknownLaboratory Kwpqgta4639-35-04 08:13:00Identifier 92687- 6 Result Time 2018-06-05 08:13:00Unknown Test Item Value Reference Range Comments Unknown (test code = 2160-0) 1.43 mg/dL Unknown 0.67-1.17 F Ordering Physician UnknownLaboratory Dybopfj0626-81-39 08:13:00Identifier 77761- 6 Result Time 2018-06-05 08:13:00Unknown Test Item Value Reference Range Comments Unknown (test code = 2075-0) 104 mmol/L Unknown 101-111 F Ordering Physician UnknownLaboratory Jbluxbo4263-31-96 08:13:00Identifier 64857- 6 Result Time 2018-06-05 08:13:00Unknown Test Item Value Reference Range Comments Unknown (test code = 2028-9) 24 mmol/L Unknown 22-32 F Ordering Physician UnknownLaboratory Tffzcqa6139-98-07 08:13:00Identifier 34668- 6 Result Time 2018-06-05 08:13:00Unknown Test Item Value Reference Range Comments Unknown (test code = 99001-5) 9.0 mg/dL Unknown 8.6-10.3 F Ordering Physician UnknownLaboratory Vazgmgk0337-24-52 08:13:00Identifier 65551- 6 Result Time 2018-06-05 08:13:00Unknown Test Item Value Reference Range Comments Unknown (test code = 3094-0) 24 mg/dL Unknown 6-24 F Ordering Physician UnknownLaboratory Ispdhdo9253-22-93 08:13:00Identifier 48999- 6 Result Time 2018-06-05 08:13:00Unknown Test Item Value Reference Range Comments Unknown (test code = 3097-3) 16.8 Unknown 8-20 F Ordering Physician UnknownLaboratory Mbwrvbl6001-44-91 08:13:00Identifier 48998- 6 Result Time 2018-06-05 08:13:00Unknown Test Item Value Reference Range Comments Unknown (test code = 90393-4) 8 mmol/L Unknown 2-11 F Ordering Physician UnknownLaboratory Bostyns3314-93-44 08:13:00Identifier 99648- 6 Result Time 2018-06-05 08:13:00Unknown Test Item Value Reference Range Comments Unknown (test code = 56363-3) 27.4 10^3/uL Unknown 3.5-10.8 F Ordering Physician UnknownLaboratory Wetdcbz3666-44-43 08:13:00Identifier 95505- 6 Result Time 2018-06-05 08:13:00Unknown Test Item Value Reference Range Comments Unknown (test code = 788-0) 24 % Unknown 10.5-15 F Ordering Physician UnknownLaboratory Gsqhmdk0295-52-88 08:13:00Identifier 96087- 6 Result Time 2018-06-05 08:13:00Unknown Test Item Value Reference Range Comments Unknown (test code = 789-8) 5.19 10^6 /uL Unknown 4.18-5.48 F Ordering Physician UnknownLaboratory Eaxxico1258-10-40 08:13:00Identifier 50190- 6 Result Time 2018-06-05 08:13:00Unknown Test Item Value Reference Range Comments Unknown (test code = 777-3) 330 10^3/uL Unknown 150-450 F Ordering Physician UnknownLaboratory Hacvxns0175-34-29 08:13:00Identifier 94270- 6 Result Time 2018-06-05 08:13:00Unknown Test Item Value Reference Range Comments Unknown (test code = 79808-4) 0 Unknown Unknown F Ordering Physician UnknownLaboratory Gcqzobt2288-09-89 08:13:00Identifier 88700- 6 Result Time 2018-06-05 08:13:00Unknown Test Item Value Reference Range Comments Unknown (test code = 771-6) 0 10^3/ul Unknown Unknown F Ordering Physician UnknownLaboratory Tgymqrf7973-30-26 08:13:00Identifier 62111- 6 Result Time 2018-06-05 08:13:00Unknown Test Item Value Reference Range Comments Unknown (test code = 770-8) 84.7 % Unknown Unknown F Ordering Physician UnknownLaboratory Eqsxxsc1218-97-86 08:13:00Identifier 88806- 6 Result Time 2018-06-05 08:13:00Unknown Test Item Value Reference Range Comments Unknown (test code = 5905-5) 8.6 % Unknown Unknown F Ordering Physician UnknownLaboratory Qfcvftk6865-05-02 08:13:00Identifier 74905- 6 Result Time 2018-06-05 08:13:00Unknown Test Item Value Reference Range Comments Unknown (test code = 42094-5) 8.6 fL Unknown 7.4-10.4 F Ordering Physician UnknownLaboratory Lupirsr9123-88-36 08:13:00Identifier 13023- 6 Result Time 2018-06-05 08:13:00Unknown Test Item Value Reference Range Comments Unknown (test code = 787-2) 78 fL Unknown 80-94 F Ordering Physician UnknownLaboratory Nppaiuz6484-09-89 08:13:00Identifier 55448- 6 Result Time 2018-06-05 08:13:00Unknown Test Item Value Reference Range Comments Unknown (test code = 786-4) 31 g/dL Unknown 31-36 F Ordering Physician UnknownLaboratory Vylqcqu5068-41-73 08:13:00Identifier 72226- 6 Result Time 2018-06-05 08:13:00Unknown Test Item Value Reference Range Comments Unknown (test code = 785-6) 24 pg Unknown 27-31 F Ordering Physician UnknownLaboratory Kknqmws5647-74-35 08:13:00Identifier 47137- 6 Result Time 2018-06-05 08:13:00Unknown Test Item Value Reference Range Comments Unknown (test code = 736-9) 5.4 % Unknown Unknown F Ordering Physician UnknownLaboratory Negfldx7404-85-87 08:13:00Identifier 60833- 6 Result Time 2018-06-05 08:13:00Unknown Test Item Value Reference Range Comments Unknown (test code = 718-7) 12.3 g/dL Unknown 14.0-18.0 F Ordering Physician UnknownLaboratory Yqguhtz0217-46-49 08:13:00Identifier 47846- 6 Result Time 2018-06-05 08:13:00Unknown Test Item Value Reference Range Comments Unknown (test code = 4544-3) 40 % Unknown 36-46 F Ordering Physician UnknownLaboratory Mmfnzod6283-79-65 08:13:00Identifier 71354- 6 Result Time 2018-06-05 08:13:00Unknown Test Item Value Reference Range Comments Unknown (test code = 713-8) 0.8 % Unknown Unknown F Ordering Physician UnknownLaboratory Zobrvgp5068-34-72 08:13:00Identifier 03613- 6 Result Time 2018-06-05 08:13:00Unknown Test Item Value Reference Range Comments Unknown (test code = 706-2) 0.5 % Unknown Unknown F Ordering Physician UnknownLaboratory Mqemvcl2729-44-45 08:13:00Identifier 41566- 6 Result Time 2018-06-05 08:13:00Unknown Test Item Value Reference Range Comments Unknown (test code = XXP8588) 23.2 10^3/ul Unknown 1.5-7.7 F Ordering Physician UnknownLaboratory Vuawekz6785-56-36 08:13:00Identifier 96532- 6 Result Time 2018-06-05 08:13:00Unknown Test Item Value Reference Range Comments Unknown (test code = 742-7) 2.4 10^3/ul Unknown 0-0.8 F Ordering Physician UnknownLaboratory Ploqcqg4957-35-90 08:13:00Identifier 74189- 6 Result Time 2018-06-05 08:13:00Unknown Test Item Value Reference Range Comments Unknown (test code = 731-0) 1.5 10^3/ul Unknown 1.0-4.8 F Ordering Physician UnknownLaboratory Foytrxr7331-73-09 08:13:00Identifier 59951- 6 Result Time 2018-06-05 08:13:00Unknown Test Item Value Reference Range Comments Unknown (test code = 711-2) 0.2 10^3/ul Unknown 0-0.6 F Ordering Physician UnknownLaboratory Scswuue5807-17-29 08:13:00Identifier 94453- 6 Result Time 2018-06-05 08:13:00Unknown Test Item Value Reference Range Comments Unknown (test code = 704-7) 0.1 10^3/ul Unknown 0-0.2 F Ordering Physician UnknownLaboratory Cwfnoyw7931-16-22 06:46:00Identifier 27607- 6 Result Time 2018-06-04 06:46:00Unknown Test Item Value Reference Range Comments Unknown (test code = 26729-2) 0.05 ng/mL Unknown Unknown F Ordering Physician UnknownLaboratory Dskhvlj6236-14-94 06:46:00Identifier 73774- 6 Result Time 2018-06-04 06:46:00Unknown Test Item Value Reference Range Comments Unknown (test code = 2777-1) 2.8 mg/dL Unknown 2.5-5.0 F Ordering Physician UnknownLaboratory Pgbalxq8513-92-30 06:46:00Identifier 64919- 6 Result Time 2018-06-04 06:46:00Unknown Test Item Value Reference Range Comments Unknown (test code = 07022-9) 2.5 mg/dL Unknown 1.9-2.7 F Ordering Physician UnknownLaboratory Xscdbur7701-40-39 10:48:00Identifier 45491- 6 Result Time 2018-06-03 10:48:00Unknown Test Item Value Reference Range Comments Unknown (test code = NullTestCode) 6.0 Unknown 5-9 F Ordering Physician UnknownLaboratory Dzyqetm4501-13-36 10:48:00Identifier 99852- 6 Result Time 2018-06-03 10:48:00Unknown Test Item Value Reference Range Comments Unknown (test code = 97365-9) 1.013 Unknown 1.010-1.030 F Ordering Physician UnknownLaboratory Fkqjshd2848-60-42 10:15:00Identifier 28932- 6 Result Time 2018-06-03 10:15:00Unknown Test Item Value Reference Range Comments Unknown (test code = 3016-3) 3.38 mcIU/mL Unknown 0.34-5.60 F Ordering Physician UnknownLaboratory Zwlfnyq4555-83-24 10:15:00Identifier 41652- 6 Result Time 2018-06-03 10:15:00Unknown Test Item Value Reference Range Comments Unknown (test code = 63879-0) 1.14 Unknown 0.77-1.02 F Ordering Physician UnknownLaboratory Bqbbpjx6531-39-53 10:15:00Identifier 75572- 6 Result Time 2018-06-03 10:15:00Unknown Test Item Value Reference Range Comments Unknown (test code = 35060-2) 365 pg/mL Unknown Unknown F Ordering Physician UnknownLaboratory Mhhumau1799-81-93 10:15:00Identifier 13306- 6 Result Time 2018-06-03 10:15:00Unknown Test Item Value Reference Range Comments Unknown (test code = 2885-2) 8.9 g/dL Unknown 6.4-8.9 F Ordering Physician UnknownLaboratory Mabphcb8450-00-42 10:15:00Identifier 45139- 6 Result Time 2018-06-03 10:15:00Unknown Test Item Value Reference Range Comments Unknown (test code = 1975-2) 0.60 mg/dL Unknown 0.2-1.0 F Ordering Physician UnknownLaboratory Fptmxhd0149-06-59 10:15:00Identifier 59264- 6 Result Time 2018-06-03 10:15:00Unknown Test Item Value Reference Range Comments Unknown (test code = NullTestCode) 4.9 g/dL Unknown 2-4 F Ordering Physician UnknownLaboratory Deqytpc1522-26-50 10:15:00Identifier 77112- 6 Result Time 2018-06-03 10:15:00Unknown Test Item Value Reference Range Comments Unknown (test code = 1988-5) 11.17 mg/L Unknown 0-8.00 F Ordering Physician UnknownLaboratory Wsattcd4036-81-58 10:15:00Identifier 02402- 6 Result Time 2018-06-03 10:15:00Unknown Test Item Value Reference Range Comments Unknown (test code = 1920-8) 25 U/L Unknown 13-39 F Ordering Physician UnknownLaboratory Ngtepbh8063-59-64 10:15:00Identifier 77428- 6 Result Time 2018-06-03 10:15:00Unknown Test Item Value Reference Range Comments Unknown (test code = 6768-6) 153 U/L Unknown 34-104 F Ordering Physician UnknownLaboratory Behyxfl4352-78-01 10:15:00Identifier 55224- 6 Result Time 2018-06-03 10:15:00Unknown Test Item Value Reference Range Comments Unknown (test code = 1759-0) 0.8 Unknown 1-3 F Ordering Physician UnknownLaboratory Fdvafmj1913-22-09 10:15:00Identifier 74659- 6 Result Time 2018-06-03 10:15:00Unknown Test Item Value Reference Range Comments Unknown (test code = 56261-5) 4.0 g/dL Unknown 3.2-5.2 F Ordering Physician UnknownLaboratory Midvljq1243-83-11 10:15:00Identifier 52656- 6 Result Time 2018-06-03 10:15:00Unknown Test Item Value Reference Range Comments Unknown (test code = 1742-6) 13 U/L Unknown 7-52 F Ordering Physician UnknownLaboratory Iptnnho2017-04-73 10:15:00Identifier 98244- 6 Result Time 2018-06-03 10:15:00Unknown Test Item Value Reference Range Comments Unknown (test code = 2524-7) 0.9 mmol/L Unknown 0.5-2.0 F Ordering Physician Unknown
--- OUTSIDE RECORDS SUMMARY | 2019-01-21 16:47 | XMS REPORT ---
:1930 Author Organization [facility] Care Team Providers Name Role Phone Unavailable [...] Result Comments Laboratory Studies 2018-06-05 08:13:00 Identifier [id number] Result Time Unknown 2018-06-05 08:13:00 Test Item Value Reference Range Comments Unknown (test code = 2951-2) 136 mmol/L Unknown 135-145 F Ordering Physician UnknownLaboratory Mdnqkgl3939-18-47 08:13:00Identifier 65612- 6 Result Time 2018-06-05 08:13:00Unknown Test Item Value Reference Range Comments Unknown (test code = 2823-3) 4.0 mmol/L Unknown 3.5-5.0 F Ordering Physician UnknownLaboratory Wkhsjnr1680-78-03 08:13:00Identifier 12666- 6 Result Time 2018-06-05 08:13:00Unknown Test Item Value Reference Range Comments Unknown (test code = 2345-7) 87 mg/dL Unknown 70-100 F Ordering Physician UnknownLaboratory Xdlbdvl4905-49-21 08:13:00Identifier 60495- 6 Result Time 2018-06-05 08:13:00Unknown Test Item Value Reference Range Comments Unknown (test code = 10610-9) 46.9 Unknown Unknown F Ordering Physician UnknownLaboratory Bbvmgbz7858-57-87 08:13:00Identifier 07298- 6 Result Time 2018-06-05 08:13:00Unknown Test Item Value Reference Range Comments Unknown (test code = NullTestCode) 56.7 Unknown Unknown F Ordering Physician UnknownLaboratory Gwekezl8450-66-46 08:13:00Identifier 43663- 6 Result Time 2018-06-05 08:13:00Unknown Test Item Value Reference Range Comments Unknown (test code = 2160-0) 1.43 mg/dL Unknown 0.67-1.17 F Ordering Physician UnknownLaboratory Twbdgjb9081-00-92 08:13:00Identifier 15180- 6 Result Time 2018-06-05 08:13:00Unknown Test Item Value Reference Range Comments Unknown (test code = 2075-0) 104 mmol/L Unknown 101-111 F Ordering Physician UnknownLaboratory Utqeher2056-50-75 08:13:00Identifier 00250- 6 Result Time 2018-06-05 08:13:00Unknown Test Item Value Reference Range Comments Unknown (test code = 2028-9) 24 mmol/L Unknown 22-32 F Ordering Physician UnknownLaboratory Yuksilx9932-21-04 08:13:00Identifier 43220- 6 Result Time 2018-06-05 08:13:00Unknown Test Item Value Reference Range Comments Unknown (test code = 97579-4) 9.0 mg/dL Unknown 8.6-10.3 F Ordering Physician UnknownLaboratory Nwogokv8521-68-20 08:13:00Identifier 71619- 6 Result Time 2018-06-05 08:13:00Unknown Test Item Value Reference Range Comments Unknown (test code = 3094-0) 24 mg/dL Unknown 6-24 F Ordering Physician UnknownLaboratory Gfuqnzt5880-03-87 08:13:00Identifier 17059- 6 Result Time 2018-06-05 08:13:00Unknown Test Item Value Reference Range Comments Unknown (test code = 3097-3) 16.8 Unknown 8-20 F Ordering Physician UnknownLaboratory Lmnzsvi4716-51-22 08:13:00Identifier 59877- 6 Result Time 2018-06-05 08:13:00Unknown Test Item Value Reference Range Comments Unknown (test code = 46911-4) 8 mmol/L Unknown 2-11 F Ordering Physician UnknownLaboratory Sudhfkk5537-32-18 08:13:00Identifier 86877- 6 Result Time 2018-06-05 08:13:00Unknown Test Item Value Reference Range Comments Unknown (test code = 52458-5) 27.4 10^3/uL Unknown 3.5-10.8 F Ordering Physician UnknownLaboratory Yhtmbnj0341-93-56 08:13:00Identifier 34651- 6 Result Time 2018-06-05 08:13:00Unknown Test Item Value Reference Range Comments Unknown (test code = 788-0) 24 % Unknown 10.5-15 F Ordering Physician UnknownLaboratory Ybpwlhn5150-63-30 08:13:00Identifier 62251- 6 Result Time 2018-06-05 08:13:00Unknown Test Item Value Reference Range Comments Unknown (test code = 789-8) 5.19 10^6 /uL Unknown 4.18-5.48 F Ordering Physician UnknownLaboratory Ltxfyqv1672-67-44 08:13:00Identifier 85959- 6 Result Time 2018-06-05 08:13:00Unknown Test Item Value Reference Range Comments Unknown (test code = 777-3) 330 10^3/uL Unknown 150-450 F Ordering Physician UnknownLaboratory Cftmrjt0700-62-37 08:13:00Identifier 06623- 6 Result Time 2018-06-05 08:13:00Unknown Test Item Value Reference Range Comments Unknown (test code = 61504-0) 0 Unknown Unknown F Ordering Physician UnknownLaboratory Prubtwo7543-89-47 08:13:00Identifier 37634- 6 Result Time 2018-06-05 08:13:00Unknown Test Item Value Reference Range Comments Unknown (test code = 771-6) 0 10^3/ul Unknown Unknown F Ordering Physician UnknownLaboratory Akowrbd3325-10-45 08:13:00Identifier 97368- 6 Result Time 2018-06-05 08:13:00Unknown Test Item Value Reference Range Comments Unknown (test code = 770-8) 84.7 % Unknown Unknown F Ordering Physician UnknownLaboratory Pvupsvu4133-12-03 08:13:00Identifier 39540- 6 Result Time 2018-06-05 08:13:00Unknown Test Item Value Reference Range Comments Unknown (test code = 5905-5) 8.6 % Unknown Unknown F Ordering Physician UnknownLaboratory Rhaveoc0304-36-97 08:13:00Identifier 90145- 6 Result Time 2018-06-05 08:13:00Unknown Test Item Value Reference Range Comments Unknown (test code = 09263-6) 8.6 fL Unknown 7.4-10.4 F Ordering Physician UnknownLaboratory Rdnlcuz4308-84-60 08:13:00Identifier 19056- 6 Result Time 2018-06-05 08:13:00Unknown Test Item Value Reference Range Comments Unknown (test code = 787-2) 78 fL Unknown 80-94 F Ordering Physician UnknownLaboratory Qlpuszb4348-49-72 08:13:00Identifier 72768- 6 Result Time 2018-06-05 08:13:00Unknown Test Item Value Reference Range Comments Unknown (test code = 786-4) 31 g/dL Unknown 31-36 F Ordering Physician UnknownLaboratory Vihokds1340-89-10 08:13:00Identifier 75576- 6 Result Time 2018-06-05 08:13:00Unknown Test Item Value Reference Range Comments Unknown (test code = 785-6) 24 pg Unknown 27-31 F Ordering Physician UnknownLaboratory Yypjjmg1688-32-70 08:13:00Identifier 17974- 6 Result Time 2018-06-05 08:13:00Unknown Test Item Value Reference Range Comments Unknown (test code = 736-9) 5.4 % Unknown Unknown F Ordering Physician UnknownLaboratory Fhqodzz9057-66-84 08:13:00Identifier 31387- 6 Result Time 2018-06-05 08:13:00Unknown Test Item Value Reference Range Comments Unknown (test code = 718-7) 12.3 g/dL Unknown 14.0-18.0 F Ordering Physician UnknownLaboratory Tpmcvht7001-62-35 08:13:00Identifier 29869- 6 Result Time 2018-06-05 08:13:00Unknown Test Item Value Reference Range Comments Unknown (test code = 4544-3) 40 % Unknown 36-46 F Ordering Physician UnknownLaboratory Yguohxe4403-12-37 08:13:00Identifier 30047- 6 Result Time 2018-06-05 08:13:00Unknown Test Item Value Reference Range Comments Unknown (test code = 713-8) 0.8 % Unknown Unknown F Ordering Physician UnknownLaboratory Cvzqzuk6412-00-49 08:13:00Identifier 91672- 6 Result Time 2018-06-05 08:13:00Unknown Test Item Value Reference Range Comments Unknown (test code = 706-2) 0.5 % Unknown Unknown F Ordering Physician UnknownLaboratory Rgmntfl1399-06-34 08:13:00Identifier 64414- 6 Result Time 2018-06-05 08:13:00Unknown Test Item Value Reference Range Comments Unknown (test code = FJK9285) 23.2 10^3/ul Unknown 1.5-7.7 F Ordering Physician UnknownLaboratory Gczasho2307-70-93 08:13:00Identifier 76065- 6 Result Time 2018-06-05 08:13:00Unknown Test Item Value Reference Range Comments Unknown (test code = 742-7) 2.4 10^3/ul Unknown 0-0.8 F Ordering Physician UnknownLaboratory Fyzsfre2871-67-94 08:13:00Identifier 58937- 6 Result Time 2018-06-05 08:13:00Unknown Test Item Value Reference Range Comments Unknown (test code = 731-0) 1.5 10^3/ul Unknown 1.0-4.8 F Ordering Physician UnknownLaboratory Ufcgtff0634-24-17 08:13:00Identifier 58059- 6 Result Time 2018-06-05 08:13:00Unknown Test Item Value Reference Range Comments Unknown (test code = 711-2) 0.2 10^3/ul Unknown 0-0.6 F Ordering Physician UnknownLaboratory Czwbmbf0162-47-32 08:13:00Identifier 64500- 6 Result Time 2018-06-05 08:13:00Unknown Test Item Value Reference Range Comments Unknown (test code = 704-7) 0.1 10^3/ul Unknown 0-0.2 F Ordering Physician UnknownLaboratory Wizfdrb0924-26-38 06:46:00Identifier 35534- 6 Result Time 2018-06-04 06:46:00Unknown Test Item Value Reference Range Comments Unknown (test code = 65282-9) 0.05 ng/mL Unknown Unknown F Ordering Physician UnknownLaboratory Sagoipz6197-98-28 06:46:00Identifier 38189- 6 Result Time 2018-06-04 06:46:00Unknown Test Item Value Reference Range Comments Unknown (test code = 2777-1) 2.8 mg/dL Unknown 2.5-5.0 F Ordering Physician UnknownLaboratory Nznzlzk0018-64-16 06:46:00Identifier 86942- 6 Result Time 2018-06-04 06:46:00Unknown Test Item Value Reference Range Comments Unknown (test code = 26676-4) 2.5 mg/dL Unknown 1.9-2.7 F Ordering Physician UnknownLaboratory Ynngavh0096-58-65 10:48:00Identifier 46395- 6 Result Time 2018-06-03 10:48:00Unknown Test Item Value Reference Range Comments Unknown (test code = NullTestCode) 6.0 Unknown 5-9 F Ordering Physician UnknownLaboratory Fplhmwo1413-49-95 10:48:00Identifier 99148- 6 Result Time 2018-06-03 10:48:00Unknown Test Item Value Reference Range Comments Unknown (test code = 90663-9) 1.013 Unknown 1.010-1.030 F Ordering Physician UnknownLaboratory Wyvpnaj2923-50-85 10:15:00Identifier 11632- 6 Result Time 2018-06-03 10:15:00Unknown Test Item Value Reference Range Comments Unknown (test code = 3016-3) 3.38 mcIU/mL Unknown 0.34-5.60 F Ordering Physician UnknownLaboratory Sjgwgkf1233-52-56 10:15:00Identifier 23610- 6 Result Time 2018-06-03 10:15:00Unknown Test Item Value Reference Range Comments Unknown (test code = 31984-2) 1.14 Unknown 0.77-1.02 F Ordering Physician UnknownLaboratory Vzbqtho8293-61-73 10:15:00Identifier 84664- 6 Result Time 2018-06-03 10:15:00Unknown Test Item Value Reference Range Comments Unknown (test code = 63084-7) 365 pg/mL Unknown Unknown F Ordering Physician UnknownLaboratory Bkvpbzp5249-04-90 10:15:00Identifier 69696- 6 Result Time 2018-06-03 10:15:00Unknown Test Item Value Reference Range Comments Unknown (test code = 2885-2) 8.9 g/dL Unknown 6.4-8.9 F Ordering Physician UnknownLaboratory Kcixkht5627-03-64 10:15:00Identifier 85175- 6 Result Time 2018-06-03 10:15:00Unknown Test Item Value Reference Range Comments Unknown (test code = 1975-2) 0.60 mg/dL Unknown 0.2-1.0 F Ordering Physician UnknownLaboratory Vgffppn5294-12-05 10:15:00Identifier 11691- 6 Result Time 2018-06-03 10:15:00Unknown Test Item Value Reference Range Comments Unknown (test code = NullTestCode) 4.9 g/dL Unknown 2-4 F Ordering Physician UnknownLaboratory Btdbczt2475-16-50 10:15:00Identifier 71668- 6 Result Time 2018-06-03 10:15:00Unknown Test Item Value Reference Range Comments Unknown (test code = 1988-5) 11.17 mg/L Unknown 0-8.00 F Ordering Physician UnknownLaboratory Nidcnck7998-80-37 10:15:00Identifier 74987- 6 Result Time 2018-06-03 10:15:00Unknown Test Item Value Reference Range Comments Unknown (test code = 1920-8) 25 U/L Unknown 13-39 F Ordering Physician UnknownLaboratory Lmhesar7296-70-13 10:15:00Identifier 15731- 6 Result Time 2018-06-03 10:15:00Unknown Test Item Value Reference Range Comments Unknown (test code = 6768-6) 153 U/L Unknown 34-104 F Ordering Physician UnknownLaboratory Qfvgzck9359-05-05 10:15:00Identifier 27254- 6 Result Time 2018-06-03 10:15:00Unknown Test Item Value Reference Range Comments Unknown (test code = 1759-0) 0.8 Unknown 1-3 F Ordering Physician UnknownLaboratory Yucbtra4448-79-83 10:15:00Identifier 59646- 6 Result Time 2018-06-03 10:15:00Unknown Test Item Value Reference Range Comments Unknown (test code = 24800-4) 4.0 g/dL Unknown 3.2-5.2 F Ordering Physician UnknownLaboratory Ckptvtj0832-26-66 10:15:00Identifier 79898- 6 Result Time 2018-06-03 10:15:00Unknown Test Item Value Reference Range Comments Unknown (test code = 1742-6) 13 U/L Unknown 7-52 F Ordering Physician UnknownLaboratory Ixxoxgu1036-32-82 10:15:00Identifier 22075- 6 Result Time 2018-06-03 10:15:00Unknown Test Item Value Reference Range Comments Unknown (test code = 2524-7) 0.9 mmol/L Unknown 0.5-2.0 F Ordering Physician Unknown
--- OUTSIDE RECORDS SUMMARY | 2019-01-21 16:47 | XMS REPORT | Continuity of Care Document ---
:1930 External Reference #:[id number] Author Name Deidre Cooley DO (transmitted by agent of provider Lacy Vazquez) Address [address] [place] [id number] Care Team Providers Name Role Phone Deidre Cooley DO - Hospitalist Care Team Information Hired Hand Kenroy Glasgow MAJOR ASSEMBLER - Nurse Care Team Information Hired Hand [phone] Practitioner Problems Active Problems Provider Date Cellulitis of left lower limb Brandi Riojas M.D. Onset: 10/14/2017 Essential hypertension Brandi Riojas M.D. Onset: 10/14/2017 Gastroesophageal reflux disease YEIMY Black Onset: 10/15/2017 Polycythemia vera (clinical) YEIMY Black Onset: 10/15/2017 Social History Type Date Description Comments Sex Unknown Tobacco Use Start: Unknown End: Former Cigarette Smoker Unknown Smoking Status Reviewed: 01/21/19 Former Cigarette Smoker ETOH Use Denies alcohol use Tobacco Use Start: Unknown End: Patient is a former smoker Unknown Recreational Drug Use Denies Drug Use Exercise Type/Frequency Exercises regularly Allergies, Adverse Reactions, Alerts Description No Known Drug Allergies Medications Active Medications SIG Qnty Indications Ordering Provider Date Topiramate take one tab in 270tabs R51 Kenroy Glasgow, 11/19/2018 25mg Tablets the am and two N.P. tabs at night Atorvastatin Calcium by mouth every 30tabs I65.1 Deidre Cooley, 2018 40mg night DO Tablets Clopidogrel Bisulfate take one tab 90tabs I65.1 Deidre Cooley, 06/06/2018 daily DO 75mg Tablets Verapamil HCL ER 1/2 tab by 45tabs I65.1 Deidre Cooley, 06/29/2017 120mg mouth once a DO Tablets ER day. Multivitamin Adult 1 by mouth Unknown every day Tablets Magnesium 1 by mouth Unknown 400mg Tablets every day Hydroxyurea 1 by mouth 90caps Deidre Cooley, 500mg every other day DO Capsules Pantoprazole Sodium 2 by mouth 180tabs Deidre Cooley, 40mg every day DO Tablets DR Calcium 600/Vitamin D3 1 by mouth Unknown every day [id number] Tablets Calcium Magnesium And Unknown Zinc With D3 History Medications Topiramate 1 by mouth 30tabs R51 Austin Rivero, 10/24/2018 - 25mg daily M.D. 11/19/2018 Tablets Aspirin 81 1 by mouth Dedire Cooley, DO 08/06/2018 - 81mg every day(2-3 10/23/[address] times a week) Immunizations CPT Code Status Date Vaccine Lot # [id number] Given 11/26/2018 Pneumonia Vaccine [id number] Vital Signs Date Vital Result Comment 01/21/2019 10:58am Height 71 inches 5'11" Weight 170.00 lb Heart Rate 68 /min BP Systolic 135 mmHg BP Diastolic 71 mmHg Body Temperature 97.4 F O2 % BldC Oximetry 95 % BMI (Body Mass Index) 23.7 kg/m2 12/19/2018 11:03am Height 71 inches 5'11" Weight 170.00 lb Heart Rate 78 /min BP Systolic 132 mmHg BP Diastolic 62 mmHg BMI (Body Mass Index) 23.7 kg/m2 Results Test Acquired Facility Test Result H/L Range Note Date Protein 12/31/2018 [facility] Total 9.3 g/dL Abnormal 6.3 - 7.[address] Protein([address]) [phone] Albumin 3.8 g/dL 3.4-4.7 Alpha-1 Globulin 0.3 g/dL 0.1-0.3 Alpha-2 Globulin 1.1 g/dL Abnormal 0.6-1.0 Beta Globulin 1.3 g/dL Abnormal 0.7-1.2 Gamma Globulin 2.9 g/dL Abnormal 0.6-1.6 Albumin/Globulin Ratio 0.68 Impression See Comment 1 Protein 12/31/2018 [facility] Total 988 Abnormal <229 [address] Protein(Pep) mg/24h Urine (24HR) [place] [address] Urine [phone] Collection Duration 24 h Urine Volume 1900 mL Total Protein Concentration 52 mg/dL Albumin 64 % 3 Alpha-1 Globulin 4 % 4 Alpha-2 Globulin 5 % 5 Beta Globulin 9 % 6 Gamma Globulin 17 % 7 Albumin/Globulin Ratio 1.81 Impression See Comment 8 Laboratory test 12/31/2018 [facility] GGTP 362 U/L High 9- 64.[address] [place] [address] [phone] Hepatitis C 12/31/2018 [facility] HCV Index 0.02 s/c Antibody [address] [place] [address] [phone] Hepatitis C Antibody Negative Negative CBC Auto 12/23/2018 [facility] White Blood 39.4 10^3/uL High 3.5-10.[address] [place] [address] [phone] Red Blood Count 5.74 10^6/uL High 4.18-5.48 Hemoglobin 12.9 g/dL Low 14.0-18.0 Hematocrit 43 % Normal 42-52 Mean Corpuscular Volume 75 fL Low 80-94 9 Mean Corpuscular Hemoglobin 23 pg Low 27-31 Mean Corpuscular HGB Conc 30 g/dL Low 31-36 Red Cell Distribution Width 19 % High 10-15 Platelet Count 349 10^3/uL Normal 150-450 Mean Platelet Volume 9.3 fL Normal 7.4-10.4 Abs Neutrophils 33.1 10^3/uL High 1.5-7.7 Abs Lymphocytes 1.7 10^3/uL Normal 1.0-4.8 Abs Monocytes 3.6 10^3/uL High 0-0.8 Abs Eosinophils 0.7 10^3/uL High 0-0.6 Abs Basophils 0.3 10^3/uL High 0-0.2 Abs Nucleated RBC 0.0 10^3/uL Granulocyte % 84.0 % Lymphocyte % 4.3 % Monocyte % 9.0 % Eosinophil % 1.9 % Basophil % 0.8 % Nucleated Red Blood Cells % 0.0 Comp Metabolic 12/23/2018 [facility] Sodium 138 mmol/L Normal 135-[address] [place] [address] [phone] Potassium 4.5 mmol/L Normal 3.5-5.0 Chloride 106 mmol/L Normal 101-111 Co2 Carbon Dioxide 25 mmol/L Normal 22-32 Anion Gap 7 mmol/L Normal 2-11 Glucose 70 mg/dL Normal 70-100 Blood Urea Nitrogen 25 mg/dL High 6-24 Creatinine 1.46 mg/dL High 0.67-1.17 BUN/Creatinine Ratio 17.1 Normal 8-20 Calcium 9.5 mg/dL Normal 8.6-10.3 Total Protein 8.3 g/dL Normal 6.4-8.9 Albumin 4.0 g/dL Normal 3.2-5.2 Globulin 4.3 g/dL High 2-4 Albumin/Globulin Ratio 0.9 Low 1-3 Total Bilirubin 0.40 mg/dL Normal 0.2-1.0 Alkaline Phosphatase 489 U/L High 34-104 Alt 109 U/L High 7-52 Ast 99 U/L High 13-39 Egfr Non- 45.8 >60 Egfr 55.4 >60 10 Manual 12/23/2018 [facility] Immature 4.0 % Normal 0-9 [place] [address] [phone] Neutrophil % 83.0 % Band % 1.0 % Normal 0-8 Lymphocytes % 5.0 % Monocytes % 5.0 % Eosinophils % 2.0 % Basophil % 1.0 % Metamyelocytes % 2.0 % Normal 0-2 Myelocytes % 1.0 % Normal 0-1 Microcytosis 1+ Polychromasia 1+ Laboratory test 12/23/2018 [facility] Pathologist (SEE [address] Review NOTE) [place] [address] [phone] Protein 12/19/2018 [facility] Total 8.4 g/dL Abnormal 6.[address] Protein([place]ep) [place] [address] 7.9 [phone] Albumin 3.4 g/dL 3.4-4.7 Alpha-1 Globulin 0.3 g/dL 0.1-0.3 Alpha-2 Globulin 1.0 g/dL 0.6-1.0 Beta Globulin 1.2 g/dL 0.7-1.2 Gamma Globulin 2.6 g/dL Abnormal 0.6-1.6 Albumin/Globulin Ratio 0.68 Impression See Comment 12 Immunofixation See Comment 13 Laboratory test 12/19/2018 [facility] Anti Nuclear 0.5 U [address] [place] [address] [place] [address] [phone] Lyme Disease AB 12/19/2018 [facility] IgG Immunoblot Negative Immunoblot WB [address] [place] [address] [place] [address] [phone] IgG detected against p41, p39 kDa IgM Immunoblot Negative IgM detected against p41 kDa Lyme Disease Interpretation See Comment 15 Laboratory test 12/19/2018 [facility] Pathologist Review (SEE NOTE) [address] [place] [address] [place] [address] [phone] Miscellaneous Test See Comment 17 Manual Differential 12/19/2018 [facility] Platelet Morphology Large [address] [place] [address] [place] [address] [phone] Immature Granulocytes 10.0 % High 0-9 Neutrophil % 78.0 % Band % 9.0 % High 0-8 Lymphocytes % 4.0 % Monocytes % 7.0 % Eosinophils % 1.0 % Metamyelocytes % 1.0 % Normal 0-2 Macrocytosis 1+ Microcytosis 1+ Protein 12/19/2018 [facility] Total 8.4 Abnormal 6.3 - Electrophoresis [address] [place] [address] Protein(Pep) g/dL 7.9 [place] [address] [phone] Albumin 3.4 g/dL 3.4-4.7 Alpha-1 Globulin 0.3 g/dL 0.1-0.3 Alpha-2 Globulin 1.0 g/dL 0.6-1.0 Beta Globulin 1.2 g/dL 0.7-1.2 Gamma Globulin 2.6 g/dL Abnormal 0.6-1.6 Albumin/Globulin Ratio 0.68 Impression See Comment 18 Laboratory 12/19/2018 [facility] TSH (Thyroid 2.85 Normal 0.34 -5.60 test finding [address] [place] [address] Stim Horm) mcIU/[place] [address] [phone] Free T4 (Free Thyroxine) 0.60 ng/dL Low 0.61-1.12 Anti Nuclear Antibody 0.5 U 19 Erythrocyte Sed Rate 23 mm/Hr High 0-19 C Reactive Protein 9.71 mg/L High <8.01 Vitamin B12 12/19/2018 [facility] Vitamin B12 > 1450 High 180- 914 [address] pg/[place] [address] [phone] Folic Acid (Folate) 16.44 ng/mL >3.99 Comp Metabolic 12/19/2018 [facility] Sodium 139 mmol/L Normal 135-[address] [place] [address] [phone] Potassium 4.3 mmol/L Normal 3.5-5.0 Chloride 108 mmol/L Normal 101-111 Co2 Carbon Dioxide 24 mmol/L Normal 22-32 Anion Gap 7 mmol/L Normal 2-11 Glucose 79 mg/dL Normal 70-100 Blood Urea Nitrogen 24 mg/dL Normal 6-24 Creatinine 1.47 mg/dL High 0.67-1.17 BUN/Creatinine Ratio 16.3 Normal 8-20 Calcium 9.4 mg/dL Normal 8.6-10.3 Total Protein 8.4 g/dL Normal 6.4-8.9 Albumin 3.9 g/dL Normal 3.2-5.2 Globulin 4.5 g/dL High 2-4 Albumin/Globulin Ratio 0.9 Low 1-3 Total Bilirubin 0.40 mg/dL Normal 0.2-1.0 Alkaline Phosphatase 328 U/L High 34-104 Alt 55 U/L High 7-52 Ast 59 U/L High 13-39 Egfr Non- 45.4 >60 Egfr 55.0 >60 21 CBC Auto 12/19/2018 [facility] White Blood 26.6 10^3/uL High 3.5-10.[address] [place] [address] [phone] Red Blood Count 5.82 10^6/uL High 4.18-5.48 Hemoglobin 13.3 g/dL Low 14.0-18.0 Hematocrit 44 % Normal 42-52 Mean Corpuscular Volume 75 fL Low 80-94 Mean Corpuscular Hemoglobin 23 pg Low 27-31 Mean Corpuscular HGB Conc 31 g/dL Normal 31-36 Red Cell Distribution Width 20 % High 10-15 Platelet Count 129 10^3/uL Low 150-450 Mean Platelet Volume 9.5 fL Normal 7.4-10.4 Abs Neutrophils 22.5 10^3/uL High 1.5-7.7 Abs Lymphocytes 1.2 10^3/uL Normal 1.0-4.8 Abs Monocytes 2.1 10^3/uL High 0-0.8 Abs Eosinophils 0.5 10^3/uL Normal 0-0.6 Abs Basophils 0.4 10^3/uL High 0-0.2 Abs Nucleated RBC 0.0 10^3/uL Granulocyte % 84.5 % Lymphocyte % 4.4 % Monocyte % 7.7 % Eosinophil % 1.9 % Basophil % 1.5 % Nucleated Red Blood Cells % 0.0 1 Small abnormality in gamma fraction. Polyclonal hypergammaglobulinemia Test Performed by: [place] [address] [employer]: Naldo Tao M.D. Ph.D.; CLIA# [id number] 2 ADDITIONAL INFORMATION On 08/15/2016 the total protein assay method changed resulting in approximately a 15% increase in protein values. 3 632 mg/24 h 4 40 mg/24 h 5 49 mg/24 h 6 89 mg/24 h 7 168 mg/24 h 8 All fractions present, no apparent M-spike. Due to the elevated protein, suggest monoclonal protein study ([facility]) if clinically indicated. Test Performed by: [address] [address] [employer]: Naldo Tao M.D. Ph.D.; CLIA# [id number] Test Performed by: [place] [address] [employer]or: Naldo Tao M.D. Ph.D.; CLIA# [id number] 9 Consistent with Previous Results Reported on 12/19/18. 10 Because ethnic data is not always readily available, this report includes an eGFR for both -Americans and non- Americans. The National Kidney Disease Education Program (NKDEP) does not endorse the use of the MDRD equation for patients that are not between the ages of 18 and 70, are , have extremes of body size, muscle mass, or nutritional status, or are non- or non-. According to the National Kidney Foundation, irrespective of diagnosis, the stage of the disease is based on the level of kidney function: Stage Description GFR(mL/min/1.73 m(2)) 1 Kidney damage with normal or decreased GFR 90 2 Kidney damage with mild decrease in GFR 60-89 3 Moderate decrease in GFR 30-59 4 Severe decrease in GFR 15-29 5 Kidney failure <15 (or dialysis) 11 Leukocytosis with absolute neutrophilia and left-shifted granulocytes. Reviewed by Brie Lebron MD 12 Small abnormality in gamma fraction. Polyclonal hypergammaglobulinemia See Immunofixation. Test Performed by: [place] [address] [employer]: Naldo Tao M.D. Ph.D.; CLIA# [id number] 13 Small monoclonal IgG lambda within the gamma fraction. Immunofixation with IgD and IgE was negative. Suggest repeat testing in 6-12 months if clinically indicated. Test Performed by: [place] [address] [employer]: Naldo Tao M.D. Ph.D.; CLIA# [id number] 14 REFERENCE VALUE <=1.0 (Negative) Test Performed by: [place] [address] [employer]or: Naldo Tao M.D. Ph.D.; CLIA# [id number] 15 Specific serologic response to B. burgdorferi infection is not detected, but cannot rule out early infection during which low or undetectable antibody levels to B. burgdorferi may be present. If clinically indicated, a new serum specimen should be submitted in 7-14 days. ADDITIONAL INFORMATION Per CDC criteria, the Lyme IgG Immunoblot is interpreted as positive if IgG-class antibodies are detected to >=5 B. burgdorferi proteins, and the Lyme IgM Immunoblot is interpreted as positive if IgM-class antibodies are detected to >=2 B. burgdorferi proteins. Immunoblot patterns not meeting these criteria should not be interpreted as positive. Epitopes from certain B. burgdorferi proteins (e.g., p41) are conserved across other bacteria, which may lead to the detection of IgM- and/or IgG-class antibodies on the Lyme disease immunoblots in patients without Lyme disease. Immunoblot should only be ordered on specimens that are positive or equivocal by a FDA-licensed Lyme disease antibody screening test (e.g., EIA). Results of the Lyme IgM immunoblot should not be considered in patients with >= 30 days of symptoms. Test Performed by: [place] [address] 16 Leukocytosis with absolute neutrophilia indicative of acute inflammatory/reactive process. Mild anemia with, cytopenia noted. Additional studies as clinically warranted. Reviewed by Dr. Dunn 17 Test Result Flag Unit RefValue Lyme Disease Serology, S Positive Negative Not diagnostic. Supplemental testing by immunoblot has been ordered by reflex. Test Performed by: [place] [address] [employer]: Naldo Tao M.D. Ph.D.; CLIA# [id number] 18 Small abnormality in gamma fraction. Polyclonal hypergammaglobulinemia See Immunofixation. Test Performed by: [facility] [place] [place] [address] [employer]or: Naldo Tao M.D. Ph.D.; CLIA# [id number] 19 REFERENCE VALUE <=1.0 (Negative) Test Performed by: [address] [place] [address] [employer]: Naldo Tao M.D. Ph.D.; CLIA# [id number] 20 Normal Range 180 to 914 Indeterminate Range 145 to 180 Deficient Range <145 21 Because ethnic data is not always readily available, this report includes an eGFR for both -Americans and non- Americans. The National Kidney Disease Education Program (NKDEP) does not endorse the use of the MDRD equation for patients that are not between the ages of 18 and 70, are , have extremes of body size, muscle mass, or nutritional status, or are non- or non-. According to the National Kidney Foundation, irrespective of diagnosis, the stage of the disease is based on the level of kidney function: Stage Description GFR(mL/min/1.73 m(2)) 1 Kidney damage with normal or decreased GFR 90 2 Kidney damage with mild decrease in GFR 60-89 3 Moderate decrease in GFR 30-59 4 Severe decrease in GFR 15-29 5 Kidney failure <15 (or dialysis) Procedures Description No Information Available Medical Devices Description No Information Available Encounters Type Date Location Provider Dx Diagnosis Office Visit 12/19/2018 [facility] Kenroy Glasgow, G90.09 Other idiopathic 11:00a [facility] N.PMaureen peripheral autonomic neuropathy R42 Dizziness and giddiness R51 Headache Office Visit 11/19/2018 9:00a [facility] Kenroy Glasgow R51 Headache [facility] NRanjan 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 D75.1 Secondary polycythemia G90.09 Other idiopathic peripheral autonomic neuropathy R42 Dizziness and giddiness Office Visit 10/24/2018 4:15p [facility] Austin Rivero R51 Headache [facility] Isela 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 neuropathy 12/19/2018 R42 Dizziness and giddiness Kenroy Glasgow, N.P. 12/19/2018 R51 Headache Kenroy Glasgow, N.P. 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 11/19/2018 D75.1 Secondary polycythemia Kenroy Glasgow, N.P. 11/19/2018 G90.09 Other idiopathic peripheral autonomic Kenroy Glasgow, N.P. neuropathy 11/19/2018 R42 Dizziness and giddiness Kenroy Glasgow, N.P. 10/24/2018 R51 Headache Austin Rivero M.D. 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 10/24/2018 D75.1 Secondary polycythemia Austin Rivero M.D. 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 DONE IN ERROR Closed [address] [place] [address] [phone] Austin Rivero M.D. Received Complete 11/03/2018 [facility] [place] [address] [place] [address] [phone] Vince Hidalgo, PH.D. Sent 07/02/[address] [place] [address] [phone]
--- OUTSIDE RECORDS SUMMARY | 2019-01-21 16:47 | XMS REPORT ---
:1930 Author Organization [facility] Care Team Providers Name Role Phone Unavailable [...] Result Comments Laboratory Studies 2018-06-05 08:13:00 Identifier [id number] Result Time Unknown 2018-06-05 08:13:00 Test Item Value Reference Range Comments Unknown (test code = 2951-2) 136 mmol/L Unknown 135-145 F Ordering Physician UnknownLaboratory Anmfhbg0857-33-33 08:13:00Identifier 77485- 6 Result Time 2018-06-05 08:13:00Unknown Test Item Value Reference Range Comments Unknown (test code = 2823-3) 4.0 mmol/L Unknown 3.5-5.0 F Ordering Physician UnknownLaboratory Duhfyif2264-69-01 08:13:00Identifier 96902- 6 Result Time 2018-06-05 08:13:00Unknown Test Item Value Reference Range Comments Unknown (test code = 2345-7) 87 mg/dL Unknown 70-100 F Ordering Physician UnknownLaboratory Rioliox9992-12-17 08:13:00Identifier 62999- 6 Result Time 2018-06-05 08:13:00Unknown Test Item Value Reference Range Comments Unknown (test code = 26356-4) 46.9 Unknown Unknown F Ordering Physician UnknownLaboratory Ifbeugo7850-25-30 08:13:00Identifier 75657- 6 Result Time 2018-06-05 08:13:00Unknown Test Item Value Reference Range Comments Unknown (test code = NullTestCode) 56.7 Unknown Unknown F Ordering Physician UnknownLaboratory Ahsjbwl0453-93-04 08:13:00Identifier 67218- 6 Result Time 2018-06-05 08:13:00Unknown Test Item Value Reference Range Comments Unknown (test code = 2160-0) 1.43 mg/dL Unknown 0.67-1.17 F Ordering Physician UnknownLaboratory Iveaauv2917-03-86 08:13:00Identifier 40044- 6 Result Time 2018-06-05 08:13:00Unknown Test Item Value Reference Range Comments Unknown (test code = 2075-0) 104 mmol/L Unknown 101-111 F Ordering Physician UnknownLaboratory Joewrxz5131-67-64 08:13:00Identifier 86253- 6 Result Time 2018-06-05 08:13:00Unknown Test Item Value Reference Range Comments Unknown (test code = 2028-9) 24 mmol/L Unknown 22-32 F Ordering Physician UnknownLaboratory Xzjrbdr9060-65-95 08:13:00Identifier 02114- 6 Result Time 2018-06-05 08:13:00Unknown Test Item Value Reference Range Comments Unknown (test code = 75238-4) 9.0 mg/dL Unknown 8.6-10.3 F Ordering Physician UnknownLaboratory Kkuexol8190-58-80 08:13:00Identifier 40132- 6 Result Time 2018-06-05 08:13:00Unknown Test Item Value Reference Range Comments Unknown (test code = 3094-0) 24 mg/dL Unknown 6-24 F Ordering Physician UnknownLaboratory Yzvjtkx7685-52-44 08:13:00Identifier 21316- 6 Result Time 2018-06-05 08:13:00Unknown Test Item Value Reference Range Comments Unknown (test code = 3097-3) 16.8 Unknown 8-20 F Ordering Physician UnknownLaboratory Tohivoa2802-58-77 08:13:00Identifier 57159- 6 Result Time 2018-06-05 08:13:00Unknown Test Item Value Reference Range Comments Unknown (test code = 90972-8) 8 mmol/L Unknown 2-11 F Ordering Physician UnknownLaboratory Ayvcygx8206-29-16 08:13:00Identifier 15249- 6 Result Time 2018-06-05 08:13:00Unknown Test Item Value Reference Range Comments Unknown (test code = 78232-0) 27.4 10^3/uL Unknown 3.5-10.8 F Ordering Physician UnknownLaboratory Sjreuke1194-19-27 08:13:00Identifier 51819- 6 Result Time 2018-06-05 08:13:00Unknown Test Item Value Reference Range Comments Unknown (test code = 788-0) 24 % Unknown 10.5-15 F Ordering Physician UnknownLaboratory Tmijxjc7501-93-41 08:13:00Identifier 30625- 6 Result Time 2018-06-05 08:13:00Unknown Test Item Value Reference Range Comments Unknown (test code = 789-8) 5.19 10^6 /uL Unknown 4.18-5.48 F Ordering Physician UnknownLaboratory Iozodhg6902-85-20 08:13:00Identifier 61463- 6 Result Time 2018-06-05 08:13:00Unknown Test Item Value Reference Range Comments Unknown (test code = 777-3) 330 10^3/uL Unknown 150-450 F Ordering Physician UnknownLaboratory Xnkvdvc4851-84-24 08:13:00Identifier 42103- 6 Result Time 2018-06-05 08:13:00Unknown Test Item Value Reference Range Comments Unknown (test code = 83760-5) 0 Unknown Unknown F Ordering Physician UnknownLaboratory Wohcyjb6272-55-66 08:13:00Identifier 84589- 6 Result Time 2018-06-05 08:13:00Unknown Test Item Value Reference Range Comments Unknown (test code = 771-6) 0 10^3/ul Unknown Unknown F Ordering Physician UnknownLaboratory Hxeudmk2734-07-80 08:13:00Identifier 34993- 6 Result Time 2018-06-05 08:13:00Unknown Test Item Value Reference Range Comments Unknown (test code = 770-8) 84.7 % Unknown Unknown F Ordering Physician UnknownLaboratory Puqmxhb6283-22-75 08:13:00Identifier 16305- 6 Result Time 2018-06-05 08:13:00Unknown Test Item Value Reference Range Comments Unknown (test code = 5905-5) 8.6 % Unknown Unknown F Ordering Physician UnknownLaboratory Zafjbcv4245-05-69 08:13:00Identifier 00697- 6 Result Time 2018-06-05 08:13:00Unknown Test Item Value Reference Range Comments Unknown (test code = 73240-7) 8.6 fL Unknown 7.4-10.4 F Ordering Physician UnknownLaboratory Vrvbwll6216-93-63 08:13:00Identifier 57893- 6 Result Time 2018-06-05 08:13:00Unknown Test Item Value Reference Range Comments Unknown (test code = 787-2) 78 fL Unknown 80-94 F Ordering Physician UnknownLaboratory Eqlmidb2049-25-90 08:13:00Identifier 56666- 6 Result Time 2018-06-05 08:13:00Unknown Test Item Value Reference Range Comments Unknown (test code = 786-4) 31 g/dL Unknown 31-36 F Ordering Physician UnknownLaboratory Csrewkl3971-45-47 08:13:00Identifier 21416- 6 Result Time 2018-06-05 08:13:00Unknown Test Item Value Reference Range Comments Unknown (test code = 785-6) 24 pg Unknown 27-31 F Ordering Physician UnknownLaboratory Ttghosl1627-26-02 08:13:00Identifier 63611- 6 Result Time 2018-06-05 08:13:00Unknown Test Item Value Reference Range Comments Unknown (test code = 736-9) 5.4 % Unknown Unknown F Ordering Physician UnknownLaboratory Ishvwqz6926-73-64 08:13:00Identifier 66290- 6 Result Time 2018-06-05 08:13:00Unknown Test Item Value Reference Range Comments Unknown (test code = 718-7) 12.3 g/dL Unknown 14.0-18.0 F Ordering Physician UnknownLaboratory Asbnhme6285-50-34 08:13:00Identifier 11191- 6 Result Time 2018-06-05 08:13:00Unknown Test Item Value Reference Range Comments Unknown (test code = 4544-3) 40 % Unknown 36-46 F Ordering Physician UnknownLaboratory Gsrrbel2407-47-64 08:13:00Identifier 89273- 6 Result Time 2018-06-05 08:13:00Unknown Test Item Value Reference Range Comments Unknown (test code = 713-8) 0.8 % Unknown Unknown F Ordering Physician UnknownLaboratory Gfvjdmv2509-24-06 08:13:00Identifier 92436- 6 Result Time 2018-06-05 08:13:00Unknown Test Item Value Reference Range Comments Unknown (test code = 706-2) 0.5 % Unknown Unknown F Ordering Physician UnknownLaboratory Fmykpzr4505-02-73 08:13:00Identifier 86116- 6 Result Time 2018-06-05 08:13:00Unknown Test Item Value Reference Range Comments Unknown (test code = HHT0188) 23.2 10^3/ul Unknown 1.5-7.7 F Ordering Physician UnknownLaboratory Evvozqt3612-83-66 08:13:00Identifier 85863- 6 Result Time 2018-06-05 08:13:00Unknown Test Item Value Reference Range Comments Unknown (test code = 742-7) 2.4 10^3/ul Unknown 0-0.8 F Ordering Physician UnknownLaboratory Rggjoxo0569-71-46 08:13:00Identifier 30595- 6 Result Time 2018-06-05 08:13:00Unknown Test Item Value Reference Range Comments Unknown (test code = 731-0) 1.5 10^3/ul Unknown 1.0-4.8 F Ordering Physician UnknownLaboratory Nhithhy4567-22-20 08:13:00Identifier 78742- 6 Result Time 2018-06-05 08:13:00Unknown Test Item Value Reference Range Comments Unknown (test code = 711-2) 0.2 10^3/ul Unknown 0-0.6 F Ordering Physician UnknownLaboratory Sdpipea6031-37-80 08:13:00Identifier 35524- 6 Result Time 2018-06-05 08:13:00Unknown Test Item Value Reference Range Comments Unknown (test code = 704-7) 0.1 10^3/ul Unknown 0-0.2 F Ordering Physician UnknownLaboratory Chrzgbz3468-56-74 06:46:00Identifier 88892- 6 Result Time 2018-06-04 06:46:00Unknown Test Item Value Reference Range Comments Unknown (test code = 64850-7) 0.05 ng/mL Unknown Unknown F Ordering Physician UnknownLaboratory Flnflug0020-78-96 06:46:00Identifier 52863- 6 Result Time 2018-06-04 06:46:00Unknown Test Item Value Reference Range Comments Unknown (test code = 2777-1) 2.8 mg/dL Unknown 2.5-5.0 F Ordering Physician UnknownLaboratory Ksguirl1997-08-61 06:46:00Identifier 30654- 6 Result Time 2018-06-04 06:46:00Unknown Test Item Value Reference Range Comments Unknown (test code = 13399-6) 2.5 mg/dL Unknown 1.9-2.7 F Ordering Physician UnknownLaboratory Qucfypp6596-36-83 10:48:00Identifier 59571- 6 Result Time 2018-06-03 10:48:00Unknown Test Item Value Reference Range Comments Unknown (test code = NullTestCode) 6.0 Unknown 5-9 F Ordering Physician UnknownLaboratory Ppsmzev3414-42-77 10:48:00Identifier 31285- 6 Result Time 2018-06-03 10:48:00Unknown Test Item Value Reference Range Comments Unknown (test code = 43172-9) 1.013 Unknown 1.010-1.030 F Ordering Physician UnknownLaboratory Hoofpwh2945-81-29 10:15:00Identifier 92771- 6 Result Time 2018-06-03 10:15:00Unknown Test Item Value Reference Range Comments Unknown (test code = 3016-3) 3.38 mcIU/mL Unknown 0.34-5.60 F Ordering Physician UnknownLaboratory Sqmcyyn0365-48-59 10:15:00Identifier 92181- 6 Result Time 2018-06-03 10:15:00Unknown Test Item Value Reference Range Comments Unknown (test code = 43775-6) 1.14 Unknown 0.77-1.02 F Ordering Physician UnknownLaboratory Gqbcyxo1766-41-58 10:15:00Identifier 17586- 6 Result Time 2018-06-03 10:15:00Unknown Test Item Value Reference Range Comments Unknown (test code = 11489-4) 365 pg/mL Unknown Unknown F Ordering Physician UnknownLaboratory Lkzpgcz8984-56-91 10:15:00Identifier 21903- 6 Result Time 2018-06-03 10:15:00Unknown Test Item Value Reference Range Comments Unknown (test code = 2885-2) 8.9 g/dL Unknown 6.4-8.9 F Ordering Physician UnknownLaboratory Nvafggn0700-93-45 10:15:00Identifier 97159- 6 Result Time 2018-06-03 10:15:00Unknown Test Item Value Reference Range Comments Unknown (test code = 1975-2) 0.60 mg/dL Unknown 0.2-1.0 F Ordering Physician UnknownLaboratory Wvnaxhf9545-97-91 10:15:00Identifier 75207- 6 Result Time 2018-06-03 10:15:00Unknown Test Item Value Reference Range Comments Unknown (test code = NullTestCode) 4.9 g/dL Unknown 2-4 F Ordering Physician UnknownLaboratory Mlainbl5263-84-90 10:15:00Identifier 74214- 6 Result Time 2018-06-03 10:15:00Unknown Test Item Value Reference Range Comments Unknown (test code = 1988-5) 11.17 mg/L Unknown 0-8.00 F Ordering Physician UnknownLaboratory Xjfmqet4963-39-72 10:15:00Identifier 63419- 6 Result Time 2018-06-03 10:15:00Unknown Test Item Value Reference Range Comments Unknown (test code = 1920-8) 25 U/L Unknown 13-39 F Ordering Physician UnknownLaboratory Rkwspli7977-07-84 10:15:00Identifier 74402- 6 Result Time 2018-06-03 10:15:00Unknown Test Item Value Reference Range Comments Unknown (test code = 6768-6) 153 U/L Unknown 34-104 F Ordering Physician UnknownLaboratory Hmdsefp5340-44-98 10:15:00Identifier 49647- 6 Result Time 2018-06-03 10:15:00Unknown Test Item Value Reference Range Comments Unknown (test code = 1759-0) 0.8 Unknown 1-3 F Ordering Physician UnknownLaboratory Injvwna9287-56-28 10:15:00Identifier 78837- 6 Result Time 2018-06-03 10:15:00Unknown Test Item Value Reference Range Comments Unknown (test code = 06565-1) 4.0 g/dL Unknown 3.2-5.2 F Ordering Physician UnknownLaboratory Ajprwzq4343-57-02 10:15:00Identifier 32345- 6 Result Time 2018-06-03 10:15:00Unknown Test Item Value Reference Range Comments Unknown (test code = 1742-6) 13 U/L Unknown 7-52 F Ordering Physician UnknownLaboratory Elzztws8769-16-04 10:15:00Identifier 64976- 6 Result Time 2018-06-03 10:15:00Unknown Test Item Value Reference Range Comments Unknown (test code = 2524-7) 0.9 mmol/L Unknown 0.5-2.0 F Ordering Physician Unknown
--- OUTSIDE RECORDS SUMMARY | 2019-01-21 16:47 | XMS REPORT ---
:1930 Author Organization [facility] Care Team Providers Name Role [...] Result Comments Laboratory Studies 2018-06-05 08:13:00 Identifier [id number] Result Time Unknown 2018-06-05 08:13:00 Test Item Value Reference Range Comments Unknown (test code = 2951-2) 136 mmol/L Unknown 135-145 F Ordering Physician UnknownLaboratory Uiqkkua7487-05-15 08:13:00Identifier 72093- 6 Result Time 2018-06-05 08:13:00Unknown Test Item Value Reference Range Comments Unknown (test code = 2823-3) 4.0 mmol/L Unknown 3.5-5.0 F Ordering Physician UnknownLaboratory Wmddixc3526-19-14 08:13:00Identifier 09718- 6 Result Time 2018-06-05 08:13:00Unknown Test Item Value Reference Range Comments Unknown (test code = 2345-7) 87 mg/dL Unknown 70-100 F Ordering Physician UnknownLaboratory Qzhczxe7503-67-32 08:13:00Identifier 50720- 6 Result Time 2018-06-05 08:13:00Unknown Test Item Value Reference Range Comments Unknown (test code = 41178-1) 46.9 Unknown Unknown F Ordering Physician UnknownLaboratory Aevkefs2473-74-56 08:13:00Identifier 46075- 6 Result Time 2018-06-05 08:13:00Unknown Test Item Value Reference Range Comments Unknown (test code = NullTestCode) 56.7 Unknown Unknown F Ordering Physician UnknownLaboratory Opqvjcg8620-57-99 08:13:00Identifier 18842- 6 Result Time 2018-06-05 08:13:00Unknown Test Item Value Reference Range Comments Unknown (test code = 2160-0) 1.43 mg/dL Unknown 0.67-1.17 F Ordering Physician UnknownLaboratory Bgftjmy7845-05-22 08:13:00Identifier 13212- 6 Result Time 2018-06-05 08:13:00Unknown Test Item Value Reference Range Comments Unknown (test code = 2075-0) 104 mmol/L Unknown 101-111 F Ordering Physician UnknownLaboratory Hvlaxvw6404-85-61 08:13:00Identifier 20271- 6 Result Time 2018-06-05 08:13:00Unknown Test Item Value Reference Range Comments Unknown (test code = 2028-9) 24 mmol/L Unknown 22-32 F Ordering Physician UnknownLaboratory Lmtican1388-55-80 08:13:00Identifier 40910- 6 Result Time 2018-06-05 08:13:00Unknown Test Item Value Reference Range Comments Unknown (test code = 65874-8) 9.0 mg/dL Unknown 8.6-10.3 F Ordering Physician UnknownLaboratory Slciaik0707-13-78 08:13:00Identifier 87214- 6 Result Time 2018-06-05 08:13:00Unknown Test Item Value Reference Range Comments Unknown (test code = 3094-0) 24 mg/dL Unknown 6-24 F Ordering Physician UnknownLaboratory Nbynniq0469-06-70 08:13:00Identifier 95224- 6 Result Time 2018-06-05 08:13:00Unknown Test Item Value Reference Range Comments Unknown (test code = 3097-3) 16.8 Unknown 8-20 F Ordering Physician UnknownLaboratory Pfsukzp8965-56-53 08:13:00Identifier 29937- 6 Result Time 2018-06-05 08:13:00Unknown Test Item Value Reference Range Comments Unknown (test code = 55968-9) 8 mmol/L Unknown 2-11 F Ordering Physician UnknownLaboratory Rovbcbx2567-05-38 08:13:00Identifier 09543- 6 Result Time 2018-06-05 08:13:00Unknown Test Item Value Reference Range Comments Unknown (test code = 30271-8) 27.4 10^3/uL Unknown 3.5-10.8 F Ordering Physician UnknownLaboratory Cxbxwem8028-73-62 08:13:00Identifier 74213- 6 Result Time 2018-06-05 08:13:00Unknown Test Item Value Reference Range Comments Unknown (test code = 788-0) 24 % Unknown 10.5-15 F Ordering Physician UnknownLaboratory Hazofsz3932-66-50 08:13:00Identifier 16293- 6 Result Time 2018-06-05 08:13:00Unknown Test Item Value Reference Range Comments Unknown (test code = 789-8) 5.19 10^6 /uL Unknown 4.18-5.48 F Ordering Physician UnknownLaboratory Djlejif5789-72-75 08:13:00Identifier 74926- 6 Result Time 2018-06-05 08:13:00Unknown Test Item Value Reference Range Comments Unknown (test code = 777-3) 330 10^3/uL Unknown 150-450 F Ordering Physician UnknownLaboratory Fwagbkv2799-70-25 08:13:00Identifier 84296- 6 Result Time 2018-06-05 08:13:00Unknown Test Item Value Reference Range Comments Unknown (test code = 67004-7) 0 Unknown Unknown F Ordering Physician UnknownLaboratory Drqdrxy4778-19-33 08:13:00Identifier 49122- 6 Result Time 2018-06-05 08:13:00Unknown Test Item Value Reference Range Comments Unknown (test code = 771-6) 0 10^3/ul Unknown Unknown F Ordering Physician UnknownLaboratory Tqpryze0367-84-59 08:13:00Identifier 00039- 6 Result Time 2018-06-05 08:13:00Unknown Test Item Value Reference Range Comments Unknown (test code = 770-8) 84.7 % Unknown Unknown F Ordering Physician UnknownLaboratory Qpagfqm8899-98-35 08:13:00Identifier 09616- 6 Result Time 2018-06-05 08:13:00Unknown Test Item Value Reference Range Comments Unknown (test code = 5905-5) 8.6 % Unknown Unknown F Ordering Physician UnknownLaboratory Lgmxgep0931-37-73 08:13:00Identifier 75334- 6 Result Time 2018-06-05 08:13:00Unknown Test Item Value Reference Range Comments Unknown (test code = 20905-0) 8.6 fL Unknown 7.4-10.4 F Ordering Physician UnknownLaboratory Bhrfnkq6312-90-48 08:13:00Identifier 07101- 6 Result Time 2018-06-05 08:13:00Unknown Test Item Value Reference Range Comments Unknown (test code = 787-2) 78 fL Unknown 80-94 F Ordering Physician UnknownLaboratory Qioopvl2220-72-84 08:13:00Identifier 91682- 6 Result Time 2018-06-05 08:13:00Unknown Test Item Value Reference Range Comments Unknown (test code = 786-4) 31 g/dL Unknown 31-36 F Ordering Physician UnknownLaboratory Auyeqeg5921-91-23 08:13:00Identifier 88148- 6 Result Time 2018-06-05 08:13:00Unknown Test Item Value Reference Range Comments Unknown (test code = 785-6) 24 pg Unknown 27-31 F Ordering Physician UnknownLaboratory Whihmpj2207-29-99 08:13:00Identifier 98637- 6 Result Time 2018-06-05 08:13:00Unknown Test Item Value Reference Range Comments Unknown (test code = 736-9) 5.4 % Unknown Unknown F Ordering Physician UnknownLaboratory Xuwnwla3565-61-29 08:13:00Identifier 15021- 6 Result Time 2018-06-05 08:13:00Unknown Test Item Value Reference Range Comments Unknown (test code = 718-7) 12.3 g/dL Unknown 14.0-18.0 F Ordering Physician UnknownLaboratory Xsodzrw2931-79-91 08:13:00Identifier 74025- 6 Result Time 2018-06-05 08:13:00Unknown Test Item Value Reference Range Comments Unknown (test code = 4544-3) 40 % Unknown 36-46 F Ordering Physician UnknownLaboratory Kcnwbgg6640-30-14 08:13:00Identifier 80323- 6 Result Time 2018-06-05 08:13:00Unknown Test Item Value Reference Range Comments Unknown (test code = 713-8) 0.8 % Unknown Unknown F Ordering Physician UnknownLaboratory Eiedcab6028-94-24 08:13:00Identifier 57995- 6 Result Time 2018-06-05 08:13:00Unknown Test Item Value Reference Range Comments Unknown (test code = 706-2) 0.5 % Unknown Unknown F Ordering Physician UnknownLaboratory Qxtvxtc1026-14-65 08:13:00Identifier 67008- 6 Result Time 2018-06-05 08:13:00Unknown Test Item Value Reference Range Comments Unknown (test code = AUD9839) 23.2 10^3/ul Unknown 1.5-7.7 F Ordering Physician UnknownLaboratory Wtprzhp4183-06-24 08:13:00Identifier 44033- 6 Result Time 2018-06-05 08:13:00Unknown Test Item Value Reference Range Comments Unknown (test code = 742-7) 2.4 10^3/ul Unknown 0-0.8 F Ordering Physician UnknownLaboratory Lpkzvjz9706-96-03 08:13:00Identifier 14292- 6 Result Time 2018-06-05 08:13:00Unknown Test Item Value Reference Range Comments Unknown (test code = 731-0) 1.5 10^3/ul Unknown 1.0-4.8 F Ordering Physician UnknownLaboratory Fkndefv5356-02-40 08:13:00Identifier 79749- 6 Result Time 2018-06-05 08:13:00Unknown Test Item Value Reference Range Comments Unknown (test code = 711-2) 0.2 10^3/ul Unknown 0-0.6 F Ordering Physician UnknownLaboratory Mtxhcnm0320-03-46 08:13:00Identifier 82119- 6 Result Time 2018-06-05 08:13:00Unknown Test Item Value Reference Range Comments Unknown (test code = 704-7) 0.1 10^3/ul Unknown 0-0.2 F Ordering Physician UnknownLaboratory Ajxqqag2442-85-70 06:46:00Identifier 96703- 6 Result Time 2018-06-04 06:46:00Unknown Test Item Value Reference Range Comments Unknown (test code = 92640-7) 0.05 ng/mL Unknown Unknown F Ordering Physician UnknownLaboratory Nnzesrp2973-09-96 06:46:00Identifier 76274- 6 Result Time 2018-06-04 06:46:00Unknown Test Item Value Reference Range Comments Unknown (test code = 2777-1) 2.8 mg/dL Unknown 2.5-5.0 F Ordering Physician UnknownLaboratory Lfauhwh3254-38-56 06:46:00Identifier 76244- 6 Result Time 2018-06-04 06:46:00Unknown Test Item Value Reference Range Comments Unknown (test code = 78741-7) 2.5 mg/dL Unknown 1.9-2.7 F Ordering Physician UnknownLaboratory Yibrtyk0822-32-75 10:48:00Identifier 91756- 6 Result Time 2018-06-03 10:48:00Unknown Test Item Value Reference Range Comments Unknown (test code = NullTestCode) 6.0 Unknown 5-9 F Ordering Physician UnknownLaboratory Intoxhz4578-10-29 10:48:00Identifier 96959- 6 Result Time 2018-06-03 10:48:00Unknown Test Item Value Reference Range Comments Unknown (test code = 10847-3) 1.013 Unknown 1.010-1.030 F Ordering Physician UnknownLaboratory Qelxetd7747-20-70 10:15:00Identifier 98601- 6 Result Time 2018-06-03 10:15:00Unknown Test Item Value Reference Range Comments Unknown (test code = 3016-3) 3.38 mcIU/mL Unknown 0.34-5.60 F Ordering Physician UnknownLaboratory Ysblena7190-66-47 10:15:00Identifier 75398- 6 Result Time 2018-06-03 10:15:00Unknown Test Item Value Reference Range Comments Unknown (test code = 21287-5) 1.14 Unknown 0.77-1.02 F Ordering Physician UnknownLaboratory Qotvtje0434-79-63 10:15:00Identifier 51864- 6 Result Time 2018-06-03 10:15:00Unknown Test Item Value Reference Range Comments Unknown (test code = 95425-4) 365 pg/mL Unknown Unknown F Ordering Physician UnknownLaboratory Pxklxal4138-49-06 10:15:00Identifier 87336- 6 Result Time 2018-06-03 10:15:00Unknown Test Item Value Reference Range Comments Unknown (test code = 2885-2) 8.9 g/dL Unknown 6.4-8.9 F Ordering Physician UnknownLaboratory Tlsqzgq0902-33-24 10:15:00Identifier 34881- 6 Result Time 2018-06-03 10:15:00Unknown Test Item Value Reference Range Comments Unknown (test code = 1975-2) 0.60 mg/dL Unknown 0.2-1.0 F Ordering Physician UnknownLaboratory Ybfixnu9736-73-37 10:15:00Identifier 53127- 6 Result Time 2018-06-03 10:15:00Unknown Test Item Value Reference Range Comments Unknown (test code = NullTestCode) 4.9 g/dL Unknown 2-4 F Ordering Physician UnknownLaboratory Gcdvcxx9680-51-47 10:15:00Identifier 60184- 6 Result Time 2018-06-03 10:15:00Unknown Test Item Value Reference Range Comments Unknown (test code = 1988-5) 11.17 mg/L Unknown 0-8.00 F Ordering Physician UnknownLaboratory Gycxnaw9210-40-21 10:15:00Identifier 06640- 6 Result Time 2018-06-03 10:15:00Unknown Test Item Value Reference Range Comments Unknown (test code = 1920-8) 25 U/L Unknown 13-39 F Ordering Physician UnknownLaboratory Asoxjwu3877-14-13 10:15:00Identifier 81636- 6 Result Time 2018-06-03 10:15:00Unknown Test Item Value Reference Range Comments Unknown (test code = 6768-6) 153 U/L Unknown 34-104 F Ordering Physician UnknownLaboratory Xeaznjl2539-67-61 10:15:00Identifier 04045- 6 Result Time 2018-06-03 10:15:00Unknown Test Item Value Reference Range Comments Unknown (test code = 1759-0) 0.8 Unknown 1-3 F Ordering Physician UnknownLaboratory Jkgzwyg7578-29-26 10:15:00Identifier 42405- 6 Result Time 2018-06-03 10:15:00Unknown Test Item Value Reference Range Comments Unknown (test code = 37522-6) 4.0 g/dL Unknown 3.2-5.2 F Ordering Physician UnknownLaboratory Ulmttwj3217-64-74 10:15:00Identifier 23774- 6 Result Time 2018-06-03 10:15:00Unknown Test Item Value Reference Range Comments Unknown (test code = 1742-6) 13 U/L Unknown 7-52 F Ordering Physician UnknownLaboratory Hqarzae2346-86-32 10:15:00Identifier 62453- 6 Result Time 2018-06-03 10:15:00Unknown Test Item Value Reference Range Comments Unknown (test code = 2524-7) 0.9 mmol/L Unknown 0.5-2.0 F Ordering Physician Unknown
--- OUTSIDE RECORDS SUMMARY | 2019-01-21 16:47 | XMS REPORT ---
:1930 Author Organization [facility] Care Team Providers Name Role [...] Result Comments Laboratory Studies 2018-06-05 08:13:00 Identifier [id number] Result Time Unknown 2018-06-05 08:13:00 Test Item Value Reference Range Comments Unknown (test code = 2951-2) 136 mmol/L Unknown 135-145 F Ordering Physician UnknownLaboratory Ipvsudz6288-12-71 08:13:00Identifier 22732- 6 Result Time 2018-06-05 08:13:00Unknown Test Item Value Reference Range Comments Unknown (test code = 2823-3) 4.0 mmol/L Unknown 3.5-5.0 F Ordering Physician UnknownLaboratory Jxqzojn1152-95-06 08:13:00Identifier 77612- 6 Result Time 2018-06-05 08:13:00Unknown Test Item Value Reference Range Comments Unknown (test code = 2345-7) 87 mg/dL Unknown 70-100 F Ordering Physician UnknownLaboratory Ikngknh8097-66-31 08:13:00Identifier 59874- 6 Result Time 2018-06-05 08:13:00Unknown Test Item Value Reference Range Comments Unknown (test code = 98463-4) 46.9 Unknown Unknown F Ordering Physician UnknownLaboratory Mahotjo8229-46-94 08:13:00Identifier 64929- 6 Result Time 2018-06-05 08:13:00Unknown Test Item Value Reference Range Comments Unknown (test code = NullTestCode) 56.7 Unknown Unknown F Ordering Physician UnknownLaboratory Vgmvuxh6417-95-61 08:13:00Identifier 36640- 6 Result Time 2018-06-05 08:13:00Unknown Test Item Value Reference Range Comments Unknown (test code = 2160-0) 1.43 mg/dL Unknown 0.67-1.17 F Ordering Physician UnknownLaboratory Aspyfqu2746-68-16 08:13:00Identifier 82450- 6 Result Time 2018-06-05 08:13:00Unknown Test Item Value Reference Range Comments Unknown (test code = 2075-0) 104 mmol/L Unknown 101-111 F Ordering Physician UnknownLaboratory Oasgrzd1315-09-56 08:13:00Identifier 16036- 6 Result Time 2018-06-05 08:13:00Unknown Test Item Value Reference Range Comments Unknown (test code = 2028-9) 24 mmol/L Unknown 22-32 F Ordering Physician UnknownLaboratory Gabhmpw8373-88-07 08:13:00Identifier 27916- 6 Result Time 2018-06-05 08:13:00Unknown Test Item Value Reference Range Comments Unknown (test code = 08749-5) 9.0 mg/dL Unknown 8.6-10.3 F Ordering Physician UnknownLaboratory Yskihym7729-72-89 08:13:00Identifier 66469- 6 Result Time 2018-06-05 08:13:00Unknown Test Item Value Reference Range Comments Unknown (test code = 3094-0) 24 mg/dL Unknown 6-24 F Ordering Physician UnknownLaboratory Rwwdzps4544-47-47 08:13:00Identifier 22910- 6 Result Time 2018-06-05 08:13:00Unknown Test Item Value Reference Range Comments Unknown (test code = 3097-3) 16.8 Unknown 8-20 F Ordering Physician UnknownLaboratory Ncmvxci0275-24-24 08:13:00Identifier 08981- 6 Result Time 2018-06-05 08:13:00Unknown Test Item Value Reference Range Comments Unknown (test code = 71866-1) 8 mmol/L Unknown 2-11 F Ordering Physician UnknownLaboratory Wjnsjty0800-87-08 08:13:00Identifier 63559- 6 Result Time 2018-06-05 08:13:00Unknown Test Item Value Reference Range Comments Unknown (test code = 18003-7) 27.4 10^3/uL Unknown 3.5-10.8 F Ordering Physician UnknownLaboratory Rshvsiy2634-79-35 08:13:00Identifier 30270- 6 Result Time 2018-06-05 08:13:00Unknown Test Item Value Reference Range Comments Unknown (test code = 788-0) 24 % Unknown 10.5-15 F Ordering Physician UnknownLaboratory Bcibxpv8062-56-19 08:13:00Identifier 74725- 6 Result Time 2018-06-05 08:13:00Unknown Test Item Value Reference Range Comments Unknown (test code = 789-8) 5.19 10^6 /uL Unknown 4.18-5.48 F Ordering Physician UnknownLaboratory Zovmldl4104-35-39 08:13:00Identifier 00946- 6 Result Time 2018-06-05 08:13:00Unknown Test Item Value Reference Range Comments Unknown (test code = 777-3) 330 10^3/uL Unknown 150-450 F Ordering Physician UnknownLaboratory Ybfaxdi2829-65-63 08:13:00Identifier 54934- 6 Result Time 2018-06-05 08:13:00Unknown Test Item Value Reference Range Comments Unknown (test code = 49709-0) 0 Unknown Unknown F Ordering Physician UnknownLaboratory Dngeywt0959-19-62 08:13:00Identifier 14618- 6 Result Time 2018-06-05 08:13:00Unknown Test Item Value Reference Range Comments Unknown (test code = 771-6) 0 10^3/ul Unknown Unknown F Ordering Physician UnknownLaboratory Mjisedw5290-08-01 08:13:00Identifier 87614- 6 Result Time 2018-06-05 08:13:00Unknown Test Item Value Reference Range Comments Unknown (test code = 770-8) 84.7 % Unknown Unknown F Ordering Physician UnknownLaboratory Hhjpdtt4734-55-03 08:13:00Identifier 25194- 6 Result Time 2018-06-05 08:13:00Unknown Test Item Value Reference Range Comments Unknown (test code = 5905-5) 8.6 % Unknown Unknown F Ordering Physician UnknownLaboratory Kbikzem8468-36-95 08:13:00Identifier 07079- 6 Result Time 2018-06-05 08:13:00Unknown Test Item Value Reference Range Comments Unknown (test code = 07495-8) 8.6 fL Unknown 7.4-10.4 F Ordering Physician UnknownLaboratory Sqgklpr5112-56-06 08:13:00Identifier 23203- 6 Result Time 2018-06-05 08:13:00Unknown Test Item Value Reference Range Comments Unknown (test code = 787-2) 78 fL Unknown 80-94 F Ordering Physician UnknownLaboratory Eqzgvvs3602-44-02 08:13:00Identifier 15481- 6 Result Time 2018-06-05 08:13:00Unknown Test Item Value Reference Range Comments Unknown (test code = 786-4) 31 g/dL Unknown 31-36 F Ordering Physician UnknownLaboratory Hhergfg0809-07-01 08:13:00Identifier 80343- 6 Result Time 2018-06-05 08:13:00Unknown Test Item Value Reference Range Comments Unknown (test code = 785-6) 24 pg Unknown 27-31 F Ordering Physician UnknownLaboratory Byoefnm0921-85-27 08:13:00Identifier 39876- 6 Result Time 2018-06-05 08:13:00Unknown Test Item Value Reference Range Comments Unknown (test code = 736-9) 5.4 % Unknown Unknown F Ordering Physician UnknownLaboratory Mlrhztw5737-71-24 08:13:00Identifier 22917- 6 Result Time 2018-06-05 08:13:00Unknown Test Item Value Reference Range Comments Unknown (test code = 718-7) 12.3 g/dL Unknown 14.0-18.0 F Ordering Physician UnknownLaboratory Qmvaltv3132-91-28 08:13:00Identifier 97926- 6 Result Time 2018-06-05 08:13:00Unknown Test Item Value Reference Range Comments Unknown (test code = 4544-3) 40 % Unknown 36-46 F Ordering Physician UnknownLaboratory Aofvjse1774-90-48 08:13:00Identifier 42584- 6 Result Time 2018-06-05 08:13:00Unknown Test Item Value Reference Range Comments Unknown (test code = 713-8) 0.8 % Unknown Unknown F Ordering Physician UnknownLaboratory Kgldbtd1828-81-47 08:13:00Identifier 30657- 6 Result Time 2018-06-05 08:13:00Unknown Test Item Value Reference Range Comments Unknown (test code = 706-2) 0.5 % Unknown Unknown F Ordering Physician UnknownLaboratory Ekwsnvq7376-05-90 08:13:00Identifier 41528- 6 Result Time 2018-06-05 08:13:00Unknown Test Item Value Reference Range Comments Unknown (test code = ICD4352) 23.2 10^3/ul Unknown 1.5-7.7 F Ordering Physician UnknownLaboratory Iwfgdmy0770-65-03 08:13:00Identifier 55095- 6 Result Time 2018-06-05 08:13:00Unknown Test Item Value Reference Range Comments Unknown (test code = 742-7) 2.4 10^3/ul Unknown 0-0.8 F Ordering Physician UnknownLaboratory Obcbkpn3664-69-03 08:13:00Identifier 39332- 6 Result Time 2018-06-05 08:13:00Unknown Test Item Value Reference Range Comments Unknown (test code = 731-0) 1.5 10^3/ul Unknown 1.0-4.8 F Ordering Physician UnknownLaboratory Vnycwen1106-38-58 08:13:00Identifier 85810- 6 Result Time 2018-06-05 08:13:00Unknown Test Item Value Reference Range Comments Unknown (test code = 711-2) 0.2 10^3/ul Unknown 0-0.6 F Ordering Physician UnknownLaboratory Quwhgul5630-72-49 08:13:00Identifier 76568- 6 Result Time 2018-06-05 08:13:00Unknown Test Item Value Reference Range Comments Unknown (test code = 704-7) 0.1 10^3/ul Unknown 0-0.2 F Ordering Physician UnknownLaboratory Oceifik2691-74-92 06:46:00Identifier 23485- 6 Result Time 2018-06-04 06:46:00Unknown Test Item Value Reference Range Comments Unknown (test code = 17777-3) 0.05 ng/mL Unknown Unknown F Ordering Physician UnknownLaboratory Ptpotrk4651-91-22 06:46:00Identifier 61077- 6 Result Time 2018-06-04 06:46:00Unknown Test Item Value Reference Range Comments Unknown (test code = 2777-1) 2.8 mg/dL Unknown 2.5-5.0 F Ordering Physician UnknownLaboratory Iiabngt3478-25-55 06:46:00Identifier 61940- 6 Result Time 2018-06-04 06:46:00Unknown Test Item Value Reference Range Comments Unknown (test code = 70664-0) 2.5 mg/dL Unknown 1.9-2.7 F Ordering Physician UnknownLaboratory Gadqmat0545-71-47 10:48:00Identifier 62394- 6 Result Time 2018-06-03 10:48:00Unknown Test Item Value Reference Range Comments Unknown (test code = NullTestCode) 6.0 Unknown 5-9 F Ordering Physician UnknownLaboratory Jbrvujd6328-35-21 10:48:00Identifier 96159- 6 Result Time 2018-06-03 10:48:00Unknown Test Item Value Reference Range Comments Unknown (test code = 85109-9) 1.013 Unknown 1.010-1.030 F Ordering Physician UnknownLaboratory Tueakar9681-68-79 10:15:00Identifier 32280- 6 Result Time 2018-06-03 10:15:00Unknown Test Item Value Reference Range Comments Unknown (test code = 3016-3) 3.38 mcIU/mL Unknown 0.34-5.60 F Ordering Physician UnknownLaboratory Wugzgum3671-33-98 10:15:00Identifier 62758- 6 Result Time 2018-06-03 10:15:00Unknown Test Item Value Reference Range Comments Unknown (test code = 84028-2) 1.14 Unknown 0.77-1.02 F Ordering Physician UnknownLaboratory Csasxon8492-63-87 10:15:00Identifier 59036- 6 Result Time 2018-06-03 10:15:00Unknown Test Item Value Reference Range Comments Unknown (test code = 89301-6) 365 pg/mL Unknown Unknown F Ordering Physician UnknownLaboratory Hbgrxxg5790-66-57 10:15:00Identifier 35308- 6 Result Time 2018-06-03 10:15:00Unknown Test Item Value Reference Range Comments Unknown (test code = 2885-2) 8.9 g/dL Unknown 6.4-8.9 F Ordering Physician UnknownLaboratory Cwckghq2715-73-94 10:15:00Identifier 12617- 6 Result Time 2018-06-03 10:15:00Unknown Test Item Value Reference Range Comments Unknown (test code = 1975-2) 0.60 mg/dL Unknown 0.2-1.0 F Ordering Physician UnknownLaboratory Hjuyrnq2079-97-05 10:15:00Identifier 16187- 6 Result Time 2018-06-03 10:15:00Unknown Test Item Value Reference Range Comments Unknown (test code = NullTestCode) 4.9 g/dL Unknown 2-4 F Ordering Physician UnknownLaboratory Mrfbtdu8574-54-37 10:15:00Identifier 64394- 6 Result Time 2018-06-03 10:15:00Unknown Test Item Value Reference Range Comments Unknown (test code = 1988-5) 11.17 mg/L Unknown 0-8.00 F Ordering Physician UnknownLaboratory Rtllqxc8498-92-48 10:15:00Identifier 79813- 6 Result Time 2018-06-03 10:15:00Unknown Test Item Value Reference Range Comments Unknown (test code = 1920-8) 25 U/L Unknown 13-39 F Ordering Physician UnknownLaboratory Bglgcci2556-63-21 10:15:00Identifier 72871- 6 Result Time 2018-06-03 10:15:00Unknown Test Item Value Reference Range Comments Unknown (test code = 6768-6) 153 U/L Unknown 34-104 F Ordering Physician UnknownLaboratory Ldhnkxt5914-73-45 10:15:00Identifier 72414- 6 Result Time 2018-06-03 10:15:00Unknown Test Item Value Reference Range Comments Unknown (test code = 1759-0) 0.8 Unknown 1-3 F Ordering Physician UnknownLaboratory Yweyksb0032-05-86 10:15:00Identifier 87684- 6 Result Time 2018-06-03 10:15:00Unknown Test Item Value Reference Range Comments Unknown (test code = 25549-2) 4.0 g/dL Unknown 3.2-5.2 F Ordering Physician UnknownLaboratory Dottgpz6285-95-94 10:15:00Identifier 70585- 6 Result Time 2018-06-03 10:15:00Unknown Test Item Value Reference Range Comments Unknown (test code = 1742-6) 13 U/L Unknown 7-52 F Ordering Physician UnknownLaboratory Edhllzp4696-01-32 10:15:00Identifier 85089- 6 Result Time 2018-06-03 10:15:00Unknown Test Item Value Reference Range Comments Unknown (test code = 2524-7) 0.9 mmol/L Unknown 0.5-2.0 F Ordering Physician Unknown
--- OUTSIDE RECORDS SUMMARY | 2019-01-21 16:47 | XMS REPORT ---
:1930 Author Organization [facility] Care Team Providers Name Role Phone Unavailable [...] Result Comments Laboratory Studies 2018-06-05 08:13:00 Identifier [id number] Result Time Unknown 2018-06-05 08:13:00 Test Item Value Reference Range Comments Unknown (test code = 2951-2) 136 mmol/L Unknown 135-145 F Ordering Physician UnknownLaboratory Nxiyirf3614-94-09 08:13:00Identifier 17115- 6 Result Time 2018-06-05 08:13:00Unknown Test Item Value Reference Range Comments Unknown (test code = 2823-3) 4.0 mmol/L Unknown 3.5-5.0 F Ordering Physician UnknownLaboratory Qofcnqs6813-05-06 08:13:00Identifier 09685- 6 Result Time 2018-06-05 08:13:00Unknown Test Item Value Reference Range Comments Unknown (test code = 2345-7) 87 mg/dL Unknown 70-100 F Ordering Physician UnknownLaboratory Owufrtn3164-09-34 08:13:00Identifier 43592- 6 Result Time 2018-06-05 08:13:00Unknown Test Item Value Reference Range Comments Unknown (test code = 92423-2) 46.9 Unknown Unknown F Ordering Physician UnknownLaboratory Parzgxd3401-49-47 08:13:00Identifier 33893- 6 Result Time 2018-06-05 08:13:00Unknown Test Item Value Reference Range Comments Unknown (test code = NullTestCode) 56.7 Unknown Unknown F Ordering Physician UnknownLaboratory Rkgcuwd1163-82-52 08:13:00Identifier 64917- 6 Result Time 2018-06-05 08:13:00Unknown Test Item Value Reference Range Comments Unknown (test code = 2160-0) 1.43 mg/dL Unknown 0.67-1.17 F Ordering Physician UnknownLaboratory Rflyezf0821-72-28 08:13:00Identifier 00555- 6 Result Time 2018-06-05 08:13:00Unknown Test Item Value Reference Range Comments Unknown (test code = 2075-0) 104 mmol/L Unknown 101-111 F Ordering Physician UnknownLaboratory Wzhybxh9980-22-13 08:13:00Identifier 79670- 6 Result Time 2018-06-05 08:13:00Unknown Test Item Value Reference Range Comments Unknown (test code = 2028-9) 24 mmol/L Unknown 22-32 F Ordering Physician UnknownLaboratory Zysddfj2818-45-67 08:13:00Identifier 49875- 6 Result Time 2018-06-05 08:13:00Unknown Test Item Value Reference Range Comments Unknown (test code = 43226-7) 9.0 mg/dL Unknown 8.6-10.3 F Ordering Physician UnknownLaboratory Vcahxqx6650-49-08 08:13:00Identifier 79861- 6 Result Time 2018-06-05 08:13:00Unknown Test Item Value Reference Range Comments Unknown (test code = 3094-0) 24 mg/dL Unknown 6-24 F Ordering Physician UnknownLaboratory Ouykumt9511-19-09 08:13:00Identifier 82718- 6 Result Time 2018-06-05 08:13:00Unknown Test Item Value Reference Range Comments Unknown (test code = 3097-3) 16.8 Unknown 8-20 F Ordering Physician UnknownLaboratory Kujmbpg2294-27-08 08:13:00Identifier 32878- 6 Result Time 2018-06-05 08:13:00Unknown Test Item Value Reference Range Comments Unknown (test code = 25879-1) 8 mmol/L Unknown 2-11 F Ordering Physician UnknownLaboratory Prpcimw7341-22-90 08:13:00Identifier 75558- 6 Result Time 2018-06-05 08:13:00Unknown Test Item Value Reference Range Comments Unknown (test code = 97273-9) 27.4 10^3/uL Unknown 3.5-10.8 F Ordering Physician UnknownLaboratory Yzhsyfy1476-34-88 08:13:00Identifier 16339- 6 Result Time 2018-06-05 08:13:00Unknown Test Item Value Reference Range Comments Unknown (test code = 788-0) 24 % Unknown 10.5-15 F Ordering Physician UnknownLaboratory Rukaauh6607-32-40 08:13:00Identifier 73284- 6 Result Time 2018-06-05 08:13:00Unknown Test Item Value Reference Range Comments Unknown (test code = 789-8) 5.19 10^6 /uL Unknown 4.18-5.48 F Ordering Physician UnknownLaboratory Ikamaqp8128-04-98 08:13:00Identifier 93855- 6 Result Time 2018-06-05 08:13:00Unknown Test Item Value Reference Range Comments Unknown (test code = 777-3) 330 10^3/uL Unknown 150-450 F Ordering Physician UnknownLaboratory Qylucpd8613-69-90 08:13:00Identifier 70634- 6 Result Time 2018-06-05 08:13:00Unknown Test Item Value Reference Range Comments Unknown (test code = 72986-9) 0 Unknown Unknown F Ordering Physician UnknownLaboratory Izybujp7877-11-43 08:13:00Identifier 62884- 6 Result Time 2018-06-05 08:13:00Unknown Test Item Value Reference Range Comments Unknown (test code = 771-6) 0 10^3/ul Unknown Unknown F Ordering Physician UnknownLaboratory Dbhtrry8546-37-50 08:13:00Identifier 42041- 6 Result Time 2018-06-05 08:13:00Unknown Test Item Value Reference Range Comments Unknown (test code = 770-8) 84.7 % Unknown Unknown F Ordering Physician UnknownLaboratory Iobkilc1368-28-04 08:13:00Identifier 99089- 6 Result Time 2018-06-05 08:13:00Unknown Test Item Value Reference Range Comments Unknown (test code = 5905-5) 8.6 % Unknown Unknown F Ordering Physician UnknownLaboratory Ykxfgof8833-19-05 08:13:00Identifier 28239- 6 Result Time 2018-06-05 08:13:00Unknown Test Item Value Reference Range Comments Unknown (test code = 16772-7) 8.6 fL Unknown 7.4-10.4 F Ordering Physician UnknownLaboratory Tcgjxks0107-94-19 08:13:00Identifier 22898- 6 Result Time 2018-06-05 08:13:00Unknown Test Item Value Reference Range Comments Unknown (test code = 787-2) 78 fL Unknown 80-94 F Ordering Physician UnknownLaboratory Vieyccp6101-42-87 08:13:00Identifier 67471- 6 Result Time 2018-06-05 08:13:00Unknown Test Item Value Reference Range Comments Unknown (test code = 786-4) 31 g/dL Unknown 31-36 F Ordering Physician UnknownLaboratory Ayzgett8088-04-56 08:13:00Identifier 95850- 6 Result Time 2018-06-05 08:13:00Unknown Test Item Value Reference Range Comments Unknown (test code = 785-6) 24 pg Unknown 27-31 F Ordering Physician UnknownLaboratory Vsxkzdw4612-64-60 08:13:00Identifier 28993- 6 Result Time 2018-06-05 08:13:00Unknown Test Item Value Reference Range Comments Unknown (test code = 736-9) 5.4 % Unknown Unknown F Ordering Physician UnknownLaboratory Vwwnnwi7486-08-45 08:13:00Identifier 77177- 6 Result Time 2018-06-05 08:13:00Unknown Test Item Value Reference Range Comments Unknown (test code = 718-7) 12.3 g/dL Unknown 14.0-18.0 F Ordering Physician UnknownLaboratory Rrymiul1679-01-13 08:13:00Identifier 13623- 6 Result Time 2018-06-05 08:13:00Unknown Test Item Value Reference Range Comments Unknown (test code = 4544-3) 40 % Unknown 36-46 F Ordering Physician UnknownLaboratory Urxlzlm8192-07-80 08:13:00Identifier 39774- 6 Result Time 2018-06-05 08:13:00Unknown Test Item Value Reference Range Comments Unknown (test code = 713-8) 0.8 % Unknown Unknown F Ordering Physician UnknownLaboratory Tffvabt2737-96-86 08:13:00Identifier 31952- 6 Result Time 2018-06-05 08:13:00Unknown Test Item Value Reference Range Comments Unknown (test code = 706-2) 0.5 % Unknown Unknown F Ordering Physician UnknownLaboratory Tbzypnc8595-02-56 08:13:00Identifier 11235- 6 Result Time 2018-06-05 08:13:00Unknown Test Item Value Reference Range Comments Unknown (test code = ZUF7548) 23.2 10^3/ul Unknown 1.5-7.7 F Ordering Physician UnknownLaboratory Fmchtls1677-09-94 08:13:00Identifier 49779- 6 Result Time 2018-06-05 08:13:00Unknown Test Item Value Reference Range Comments Unknown (test code = 742-7) 2.4 10^3/ul Unknown 0-0.8 F Ordering Physician UnknownLaboratory Dythpwl4455-30-46 08:13:00Identifier 12221- 6 Result Time 2018-06-05 08:13:00Unknown Test Item Value Reference Range Comments Unknown (test code = 731-0) 1.5 10^3/ul Unknown 1.0-4.8 F Ordering Physician UnknownLaboratory Wozcigx8576-02-20 08:13:00Identifier 08111- 6 Result Time 2018-06-05 08:13:00Unknown Test Item Value Reference Range Comments Unknown (test code = 711-2) 0.2 10^3/ul Unknown 0-0.6 F Ordering Physician UnknownLaboratory Cavtprw3333-05-78 08:13:00Identifier 53135- 6 Result Time 2018-06-05 08:13:00Unknown Test Item Value Reference Range Comments Unknown (test code = 704-7) 0.1 10^3/ul Unknown 0-0.2 F Ordering Physician UnknownLaboratory Detkqke0897-91-11 06:46:00Identifier 34446- 6 Result Time 2018-06-04 06:46:00Unknown Test Item Value Reference Range Comments Unknown (test code = 39538-3) 0.05 ng/mL Unknown Unknown F Ordering Physician UnknownLaboratory Jrlgcjw0685-78-44 06:46:00Identifier 36777- 6 Result Time 2018-06-04 06:46:00Unknown Test Item Value Reference Range Comments Unknown (test code = 2777-1) 2.8 mg/dL Unknown 2.5-5.0 F Ordering Physician UnknownLaboratory Qrjgjsp0791-46-77 06:46:00Identifier 02762- 6 Result Time 2018-06-04 06:46:00Unknown Test Item Value Reference Range Comments Unknown (test code = 17809-4) 2.5 mg/dL Unknown 1.9-2.7 F Ordering Physician UnknownLaboratory Kxncbmi1316-89-73 10:48:00Identifier 66026- 6 Result Time 2018-06-03 10:48:00Unknown Test Item Value Reference Range Comments Unknown (test code = NullTestCode) 6.0 Unknown 5-9 F Ordering Physician UnknownLaboratory Hifdopn3349-06-30 10:48:00Identifier 35189- 6 Result Time 2018-06-03 10:48:00Unknown Test Item Value Reference Range Comments Unknown (test code = 70063-4) 1.013 Unknown 1.010-1.030 F Ordering Physician UnknownLaboratory Jjogfbn5755-23-31 10:15:00Identifier 23440- 6 Result Time 2018-06-03 10:15:00Unknown Test Item Value Reference Range Comments Unknown (test code = 3016-3) 3.38 mcIU/mL Unknown 0.34-5.60 F Ordering Physician UnknownLaboratory Ulwyhol6931-05-87 10:15:00Identifier 50552- 6 Result Time 2018-06-03 10:15:00Unknown Test Item Value Reference Range Comments Unknown (test code = 92201-2) 1.14 Unknown 0.77-1.02 F Ordering Physician UnknownLaboratory Xzeylnx1698-32-20 10:15:00Identifier 99189- 6 Result Time 2018-06-03 10:15:00Unknown Test Item Value Reference Range Comments Unknown (test code = 83394-8) 365 pg/mL Unknown Unknown F Ordering Physician UnknownLaboratory Coituxl1226-16-32 10:15:00Identifier 54697- 6 Result Time 2018-06-03 10:15:00Unknown Test Item Value Reference Range Comments Unknown (test code = 2885-2) 8.9 g/dL Unknown 6.4-8.9 F Ordering Physician UnknownLaboratory Ktuephn4656-99-69 10:15:00Identifier 03050- 6 Result Time 2018-06-03 10:15:00Unknown Test Item Value Reference Range Comments Unknown (test code = 1975-2) 0.60 mg/dL Unknown 0.2-1.0 F Ordering Physician UnknownLaboratory Oulqdbq8147-89-90 10:15:00Identifier 32812- 6 Result Time 2018-06-03 10:15:00Unknown Test Item Value Reference Range Comments Unknown (test code = NullTestCode) 4.9 g/dL Unknown 2-4 F Ordering Physician UnknownLaboratory Rizcbla8928-55-46 10:15:00Identifier 45012- 6 Result Time 2018-06-03 10:15:00Unknown Test Item Value Reference Range Comments Unknown (test code = 1988-5) 11.17 mg/L Unknown 0-8.00 F Ordering Physician UnknownLaboratory Qjvrjpo4599-17-90 10:15:00Identifier 73222- 6 Result Time 2018-06-03 10:15:00Unknown Test Item Value Reference Range Comments Unknown (test code = 1920-8) 25 U/L Unknown 13-39 F Ordering Physician UnknownLaboratory Iictqek0865-24-88 10:15:00Identifier 56690- 6 Result Time 2018-06-03 10:15:00Unknown Test Item Value Reference Range Comments Unknown (test code = 6768-6) 153 U/L Unknown 34-104 F Ordering Physician UnknownLaboratory Rvoxqov3831-74-53 10:15:00Identifier 50575- 6 Result Time 2018-06-03 10:15:00Unknown Test Item Value Reference Range Comments Unknown (test code = 1759-0) 0.8 Unknown 1-3 F Ordering Physician UnknownLaboratory Ptnbjfu1957-26-74 10:15:00Identifier 89463- 6 Result Time 2018-06-03 10:15:00Unknown Test Item Value Reference Range Comments Unknown (test code = 22801-0) 4.0 g/dL Unknown 3.2-5.2 F Ordering Physician UnknownLaboratory Uwhcuqz9452-29-98 10:15:00Identifier 85130- 6 Result Time 2018-06-03 10:15:00Unknown Test Item Value Reference Range Comments Unknown (test code = 1742-6) 13 U/L Unknown 7-52 F Ordering Physician UnknownLaboratory Ufiwjhm4504-60-52 10:15:00Identifier 37903- 6 Result Time 2018-06-03 10:15:00Unknown Test Item Value Reference Range Comments Unknown (test code = 2524-7) 0.9 mmol/L Unknown 0.5-2.0 F Ordering Physician Unknown
--- OUTSIDE RECORDS SUMMARY | 2019-01-21 16:47 | XMS REPORT ---
:1930 Author Organization [facility] Care Team Providers Name Role Phone [...] Result Comments Laboratory Studies 2018-06-05 08:13:00 Identifier [id number] Result Time Unknown 2018-06-05 08:13:00 Test Item Value Reference Range Comments Unknown (test code = 2951-2) 136 mmol/L Unknown 135-145 F Ordering Physician UnknownLaboratory Cgabpmu3349-71-58 08:13:00Identifier 78316- 6 Result Time 2018-06-05 08:13:00Unknown Test Item Value Reference Range Comments Unknown (test code = 2823-3) 4.0 mmol/L Unknown 3.5-5.0 F Ordering Physician UnknownLaboratory Iltigys5980-03-25 08:13:00Identifier 43624- 6 Result Time 2018-06-05 08:13:00Unknown Test Item Value Reference Range Comments Unknown (test code = 2345-7) 87 mg/dL Unknown 70-100 F Ordering Physician UnknownLaboratory Mmuafid4515-13-78 08:13:00Identifier [id number]- 6 Result Time 2018-06-05 08:13:00Unknown Test Item Value Reference Range Comments Unknown (test code = 74557-9) 46.9 Unknown Unknown F Ordering Physician UnknownLaboratory Vcfiiyv0795-98-02 08:13:00Identifier 52718- 6 Result Time 2018-06-05 08:13:00Unknown Test Item Value Reference Range Comments Unknown (test code = NullTestCode) 56.7 Unknown Unknown F Ordering Physician UnknownLaboratory Hkcbirm0620-68-44 08:13:00Identifier 98460- 6 Result Time 2018-06-05 08:13:00Unknown Test Item Value Reference Range Comments Unknown (test code = 2160-0) 1.43 mg/dL Unknown 0.67-1.17 F Ordering Physician UnknownLaboratory Iwokggn6345-22-90 08:13:00Identifier 02644- 6 Result Time 2018-06-05 08:13:00Unknown Test Item Value Reference Range Comments Unknown (test code = 2075-0) 104 mmol/L Unknown 101-111 F Ordering Physician UnknownLaboratory Ntpglxx2473-50-50 08:13:00Identifier 92916- 6 Result Time 2018-06-05 08:13:00Unknown Test Item Value Reference Range Comments Unknown (test code = 2028-9) 24 mmol/L Unknown 22-32 F Ordering Physician UnknownLaboratory Kwuywxk2587-73-27 08:13:00Identifier 58400- 6 Result Time 2018-06-05 08:13:00Unknown Test Item Value Reference Range Comments Unknown (test code = 26056-7) 9.0 mg/dL Unknown 8.6-10.3 F Ordering Physician UnknownLaboratory Mzecqol8354-93-95 08:13:00Identifier 97913- 6 Result Time 2018-06-05 08:13:00Unknown Test Item Value Reference Range Comments Unknown (test code = 3094-0) 24 mg/dL Unknown 6-24 F Ordering Physician UnknownLaboratory Pdvvaro4867-52-68 08:13:00Identifier 37746- 6 Result Time 2018-06-05 08:13:00Unknown Test Item Value Reference Range Comments Unknown (test code = 3097-3) 16.8 Unknown 8-20 F Ordering Physician UnknownLaboratory Ibljvrm1662-28-04 08:13:00Identifier 02331- 6 Result Time 2018-06-05 08:13:00Unknown Test Item Value Reference Range Comments Unknown (test code = 49328-0) 8 mmol/L Unknown 2-11 F Ordering Physician UnknownLaboratory Xnaiwcr2032-70-81 08:13:00Identifier 70820- 6 Result Time 2018-06-05 08:13:00Unknown Test Item Value Reference Range Comments Unknown (test code = 47443-2) 27.4 10^3/uL Unknown 3.5-10.8 F Ordering Physician UnknownLaboratory Lzeglvo3688-78-72 08:13:00Identifier 02505- 6 Result Time 2018-06-05 08:13:00Unknown Test Item Value Reference Range Comments Unknown (test code = 788-0) 24 % Unknown 10.5-15 F Ordering Physician UnknownLaboratory Wwithnf7905-87-39 08:13:00Identifier 71813- 6 Result Time 2018-06-05 08:13:00Unknown Test Item Value Reference Range Comments Unknown (test code = 789-8) 5.19 10^6 /uL Unknown 4.18-5.48 F Ordering Physician UnknownLaboratory Mauojad8192-79-29 08:13:00Identifier 43001- 6 Result Time 2018-06-05 08:13:00Unknown Test Item Value Reference Range Comments Unknown (test code = 777-3) 330 10^3/uL Unknown 150-450 F Ordering Physician UnknownLaboratory Tlmpoic1090-99-26 08:13:00Identifier 64706- 6 Result Time 2018-06-05 08:13:00Unknown Test Item Value Reference Range Comments Unknown (test code = 26541-1) 0 Unknown Unknown F Ordering Physician UnknownLaboratory Kvwfpbj7380-17-77 08:13:00Identifier 85261- 6 Result Time 2018-06-05 08:13:00Unknown Test Item Value Reference Range Comments Unknown (test code = 771-6) 0 10^3/ul Unknown Unknown F Ordering Physician UnknownLaboratory Uyuxdrf3882-00-75 08:13:00Identifier 95830- 6 Result Time 2018-06-05 08:13:00Unknown Test Item Value Reference Range Comments Unknown (test code = 770-8) 84.7 % Unknown Unknown F Ordering Physician UnknownLaboratory Xphvypy6178-34-34 08:13:00Identifier 69857- 6 Result Time 2018-06-05 08:13:00Unknown Test Item Value Reference Range Comments Unknown (test code = 5905-5) 8.6 % Unknown Unknown F Ordering Physician UnknownLaboratory Benudaf1319-97-77 08:13:00Identifier 35752- 6 Result Time 2018-06-05 08:13:00Unknown Test Item Value Reference Range Comments Unknown (test code = 75982-2) 8.6 fL Unknown 7.4-10.4 F Ordering Physician UnknownLaboratory Gfhslxx7847-39-51 08:13:00Identifier 05568- 6 Result Time 2018-06-05 08:13:00Unknown Test Item Value Reference Range Comments Unknown (test code = 787-2) 78 fL Unknown 80-94 F Ordering Physician UnknownLaboratory Qgkemni8197-48-23 08:13:00Identifier 34697- 6 Result Time 2018-06-05 08:13:00Unknown Test Item Value Reference Range Comments Unknown (test code = 786-4) 31 g/dL Unknown 31-36 F Ordering Physician UnknownLaboratory Eztczjj1554-76-73 08:13:00Identifier 61604- 6 Result Time 2018-06-05 08:13:00Unknown Test Item Value Reference Range Comments Unknown (test code = 785-6) 24 pg Unknown 27-31 F Ordering Physician UnknownLaboratory Rsgqlvo7925-78-80 08:13:00Identifier 06856- 6 Result Time 2018-06-05 08:13:00Unknown Test Item Value Reference Range Comments Unknown (test code = 736-9) 5.4 % Unknown Unknown F Ordering Physician UnknownLaboratory Uzjtguh8180-37-48 08:13:00Identifier 79214- 6 Result Time 2018-06-05 08:13:00Unknown Test Item Value Reference Range Comments Unknown (test code = 718-7) 12.3 g/dL Unknown 14.0-18.0 F Ordering Physician UnknownLaboratory Gbxyxpa7534-52-07 08:13:00Identifier 82248- 6 Result Time 2018-06-05 08:13:00Unknown Test Item Value Reference Range Comments Unknown (test code = 4544-3) 40 % Unknown 36-46 F Ordering Physician UnknownLaboratory Yuoglht9672-13-76 08:13:00Identifier 19772- 6 Result Time 2018-06-05 08:13:00Unknown Test Item Value Reference Range Comments Unknown (test code = 713-8) 0.8 % Unknown Unknown F Ordering Physician UnknownLaboratory Bbkxjwh3475-76-36 08:13:00Identifier 66606- 6 Result Time 2018-06-05 08:13:00Unknown Test Item Value Reference Range Comments Unknown (test code = 706-2) 0.5 % Unknown Unknown F Ordering Physician UnknownLaboratory Tkvyjuo6393-94-96 08:13:00Identifier 16002- 6 Result Time 2018-06-05 08:13:00Unknown Test Item Value Reference Range Comments Unknown (test code = BAZ7673) 23.2 10^3/ul Unknown 1.5-7.7 F Ordering Physician UnknownLaboratory Wjhtzru8974-71-83 08:13:00Identifier 49354- 6 Result Time 2018-06-05 08:13:00Unknown Test Item Value Reference Range Comments Unknown (test code = 742-7) 2.4 10^3/ul Unknown 0-0.8 F Ordering Physician UnknownLaboratory Ytzesqb8731-14-60 08:13:00Identifier 57845- 6 Result Time 2018-06-05 08:13:00Unknown Test Item Value Reference Range Comments Unknown (test code = 731-0) 1.5 10^3/ul Unknown 1.0-4.8 F Ordering Physician UnknownLaboratory Zfhshbt4821-88-66 08:13:00Identifier 46590- 6 Result Time 2018-06-05 08:13:00Unknown Test Item Value Reference Range Comments Unknown (test code = 711-2) 0.2 10^3/ul Unknown 0-0.6 F Ordering Physician UnknownLaboratory Lvzehug4534-99-23 08:13:00Identifier 77785- 6 Result Time 2018-06-05 08:13:00Unknown Test Item Value Reference Range Comments Unknown (test code = 704-7) 0.1 10^3/ul Unknown 0-0.2 F Ordering Physician UnknownLaboratory Ypdodxd6235-19-32 06:46:00Identifier 02431- 6 Result Time 2018-06-04 06:46:00Unknown Test Item Value Reference Range Comments Unknown (test code = 19723-9) 0.05 ng/mL Unknown Unknown F Ordering Physician UnknownLaboratory Vljhbeg9811-89-26 06:46:00Identifier 25318- 6 Result Time 2018-06-04 06:46:00Unknown Test Item Value Reference Range Comments Unknown (test code = 2777-1) 2.8 mg/dL Unknown 2.5-5.0 F Ordering Physician UnknownLaboratory Vclpwol1228-50-30 06:46:00Identifier 04685- 6 Result Time 2018-06-04 06:46:00Unknown Test Item Value Reference Range Comments Unknown (test code = 13510-6) 2.5 mg/dL Unknown 1.9-2.7 F Ordering Physician UnknownLaboratory Rvckxdw7254-94-28 10:48:00Identifier 35741- 6 Result Time 2018-06-03 10:48:00Unknown Test Item Value Reference Range Comments Unknown (test code = NullTestCode) 6.0 Unknown 5-9 F Ordering Physician UnknownLaboratory Audhawf1734-85-41 10:48:00Identifier 27005- 6 Result Time 2018-06-03 10:48:00Unknown Test Item Value Reference Range Comments Unknown (test code = 33242-0) 1.013 Unknown 1.010-1.030 F Ordering Physician UnknownLaboratory Qomzehn0123-09-67 10:15:00Identifier 70250- 6 Result Time 2018-06-03 10:15:00Unknown Test Item Value Reference Range Comments Unknown (test code = 3016-3) 3.38 mcIU/mL Unknown 0.34-5.60 F Ordering Physician UnknownLaboratory Eycaovt2031-05-50 10:15:00Identifier 38838- 6 Result Time 2018-06-03 10:15:00Unknown Test Item Value Reference Range Comments Unknown (test code = 12759-5) 1.14 Unknown 0.77-1.02 F Ordering Physician UnknownLaboratory Obnysmu9543-11-98 10:15:00Identifier 38893- 6 Result Time 2018-06-03 10:15:00Unknown Test Item Value Reference Range Comments Unknown (test code = 47471-5) 365 pg/mL Unknown Unknown F Ordering Physician UnknownLaboratory Nmjhenn4188-76-28 10:15:00Identifier 65948- 6 Result Time 2018-06-03 10:15:00Unknown Test Item Value Reference Range Comments Unknown (test code = 2885-2) 8.9 g/dL Unknown 6.4-8.9 F Ordering Physician UnknownLaboratory Inzlrwn3807-24-68 10:15:00Identifier 57787- 6 Result Time 2018-06-03 10:15:00Unknown Test Item Value Reference Range Comments Unknown (test code = 1975-2) 0.60 mg/dL Unknown 0.2-1.0 F Ordering Physician UnknownLaboratory Oyfxkez2070-24-95 10:15:00Identifier 43599- 6 Result Time 2018-06-03 10:15:00Unknown Test Item Value Reference Range Comments Unknown (test code = NullTestCode) 4.9 g/dL Unknown 2-4 F Ordering Physician UnknownLaboratory Sbxongf6684-39-08 10:15:00Identifier 86646- 6 Result Time 2018-06-03 10:15:00Unknown Test Item Value Reference Range Comments Unknown (test code = 1988-5) 11.17 mg/L Unknown 0-8.00 F Ordering Physician UnknownLaboratory Rqjpxsz2929-34-94 10:15:00Identifier 71306- 6 Result Time 2018-06-03 10:15:00Unknown Test Item Value Reference Range Comments Unknown (test code = 1920-8) 25 U/L Unknown 13-39 F Ordering Physician UnknownLaboratory Hcuinlb4401-88-48 10:15:00Identifier 00616- 6 Result Time 2018-06-03 10:15:00Unknown Test Item Value Reference Range Comments Unknown (test code = 6768-6) 153 U/L Unknown 34-104 F Ordering Physician UnknownLaboratory Xljliqn2631-62-03 10:15:00Identifier 35442- 6 Result Time 2018-06-03 10:15:00Unknown Test Item Value Reference Range Comments Unknown (test code = 1759-0) 0.8 Unknown 1-3 F Ordering Physician UnknownLaboratory Ogdpajq6161-20-37 10:15:00Identifier 38150- 6 Result Time 2018-06-03 10:15:00Unknown Test Item Value Reference Range Comments Unknown (test code = 62009-9) 4.0 g/dL Unknown 3.2-5.2 F Ordering Physician UnknownLaboratory Csanexs5684-01-49 10:15:00Identifier 52683- 6 Result Time 2018-06-03 10:15:00Unknown Test Item Value Reference Range Comments Unknown (test code = 1742-6) 13 U/L Unknown 7-52 F Ordering Physician UnknownLaboratory Vvepdbp6774-75-61 10:15:00Identifier 44934- 6 Result Time 2018-06-03 10:15:00Unknown Test Item Value Reference Range Comments Unknown (test code = 2524-7) 0.9 mmol/L Unknown 0.5-2.0 F Ordering Physician Unknown
--- OUTSIDE RECORDS SUMMARY | 2019-01-21 16:47 | XMS REPORT ---
:1930 Author Organization [facility] Care Team Providers Name Role Phone Unavailable [...] Result Comments Laboratory Studies 2018-06-05 08:13:00 Identifier [id number] Result Time Unknown 2018-06-05 08:13:00 Test Item Value Reference Range Comments Unknown (test code = 2951-2) 136 mmol/L Unknown 135-145 F Ordering Physician UnknownLaboratory Ybrzxtc3595-31-73 08:13:00Identifier 33219- 6 Result Time 2018-06-05 08:13:00Unknown Test Item Value Reference Range Comments Unknown (test code = 2823-3) 4.0 mmol/L Unknown 3.5-5.0 F Ordering Physician UnknownLaboratory Bbwvhvh8489-31-79 08:13:00Identifier 78167- 6 Result Time 2018-06-05 08:13:00Unknown Test Item Value Reference Range Comments Unknown (test code = 2345-7) 87 mg/dL Unknown 70-100 F Ordering Physician UnknownLaboratory Snboocc1750-28-86 08:13:00Identifier 07399- 6 Result Time 2018-06-05 08:13:00Unknown Test Item Value Reference Range Comments Unknown (test code = 82086-5) 46.9 Unknown Unknown F Ordering Physician UnknownLaboratory Yrbgpoi6206-48-32 08:13:00Identifier 17215- 6 Result Time 2018-06-05 08:13:00Unknown Test Item Value Reference Range Comments Unknown (test code = NullTestCode) 56.7 Unknown Unknown F Ordering Physician UnknownLaboratory Rjstcsj5004-18-11 08:13:00Identifier 27408- 6 Result Time 2018-06-05 08:13:00Unknown Test Item Value Reference Range Comments Unknown (test code = 2160-0) 1.43 mg/dL Unknown 0.67-1.17 F Ordering Physician UnknownLaboratory Cwrygat0496-81-47 08:13:00Identifier 19377- 6 Result Time 2018-06-05 08:13:00Unknown Test Item Value Reference Range Comments Unknown (test code = 2075-0) 104 mmol/L Unknown 101-111 F Ordering Physician UnknownLaboratory Nweedyy9974-40-01 08:13:00Identifier 71094- 6 Result Time 2018-06-05 08:13:00Unknown Test Item Value Reference Range Comments Unknown (test code = 2028-9) 24 mmol/L Unknown 22-32 F Ordering Physician UnknownLaboratory Qiflqgi5657-50-20 08:13:00Identifier 21347- 6 Result Time 2018-06-05 08:13:00Unknown Test Item Value Reference Range Comments Unknown (test code = 56472-4) 9.0 mg/dL Unknown 8.6-10.3 F Ordering Physician UnknownLaboratory Vofmmxq2683-98-25 08:13:00Identifier 38150- 6 Result Time 2018-06-05 08:13:00Unknown Test Item Value Reference Range Comments Unknown (test code = 3094-0) 24 mg/dL Unknown 6-24 F Ordering Physician UnknownLaboratory Mfdddih9090-22-36 08:13:00Identifier 51247- 6 Result Time 2018-06-05 08:13:00Unknown Test Item Value Reference Range Comments Unknown (test code = 3097-3) 16.8 Unknown 8-20 F Ordering Physician UnknownLaboratory Gchagwm5835-89-97 08:13:00Identifier 97375- 6 Result Time 2018-06-05 08:13:00Unknown Test Item Value Reference Range Comments Unknown (test code = 46824-9) 8 mmol/L Unknown 2-11 F Ordering Physician UnknownLaboratory Vkgddeg2409-86-21 08:13:00Identifier 03355- 6 Result Time 2018-06-05 08:13:00Unknown Test Item Value Reference Range Comments Unknown (test code = 88491-1) 27.4 10^3/uL Unknown 3.5-10.8 F Ordering Physician UnknownLaboratory Frrrnyq3871-13-92 08:13:00Identifier 68303- 6 Result Time 2018-06-05 08:13:00Unknown Test Item Value Reference Range Comments Unknown (test code = 788-0) 24 % Unknown 10.5-15 F Ordering Physician UnknownLaboratory Gunhgja4776-40-08 08:13:00Identifier 97331- 6 Result Time 2018-06-05 08:13:00Unknown Test Item Value Reference Range Comments Unknown (test code = 789-8) 5.19 10^6 /uL Unknown 4.18-5.48 F Ordering Physician UnknownLaboratory Jjrsymu0187-47-04 08:13:00Identifier 30631- 6 Result Time 2018-06-05 08:13:00Unknown Test Item Value Reference Range Comments Unknown (test code = 777-3) 330 10^3/uL Unknown 150-450 F Ordering Physician UnknownLaboratory Ubeiknq0366-69-32 08:13:00Identifier 33274- 6 Result Time 2018-06-05 08:13:00Unknown Test Item Value Reference Range Comments Unknown (test code = 24297-4) 0 Unknown Unknown F Ordering Physician UnknownLaboratory Blslrid1632-73-49 08:13:00Identifier 46083- 6 Result Time 2018-06-05 08:13:00Unknown Test Item Value Reference Range Comments Unknown (test code = 771-6) 0 10^3/ul Unknown Unknown F Ordering Physician UnknownLaboratory Lygnnqx4395-75-30 08:13:00Identifier 21010- 6 Result Time 2018-06-05 08:13:00Unknown Test Item Value Reference Range Comments Unknown (test code = 770-8) 84.7 % Unknown Unknown F Ordering Physician UnknownLaboratory Jirqnla4066-18-57 08:13:00Identifier 87387- 6 Result Time 2018-06-05 08:13:00Unknown Test Item Value Reference Range Comments Unknown (test code = 5905-5) 8.6 % Unknown Unknown F Ordering Physician UnknownLaboratory Fzxknki8609-64-39 08:13:00Identifier 63804- 6 Result Time 2018-06-05 08:13:00Unknown Test Item Value Reference Range Comments Unknown (test code = 22915-2) 8.6 fL Unknown 7.4-10.4 F Ordering Physician UnknownLaboratory Plnhvgl2945-45-92 08:13:00Identifier 75819- 6 Result Time 2018-06-05 08:13:00Unknown Test Item Value Reference Range Comments Unknown (test code = 787-2) 78 fL Unknown 80-94 F Ordering Physician UnknownLaboratory Kikhboi0801-44-76 08:13:00Identifier 58112- 6 Result Time 2018-06-05 08:13:00Unknown Test Item Value Reference Range Comments Unknown (test code = 786-4) 31 g/dL Unknown 31-36 F Ordering Physician UnknownLaboratory Tpqmjmf2911-86-35 08:13:00Identifier 58063- 6 Result Time 2018-06-05 08:13:00Unknown Test Item Value Reference Range Comments Unknown (test code = 785-6) 24 pg Unknown 27-31 F Ordering Physician UnknownLaboratory Bjcqkit6452-68-77 08:13:00Identifier 39119- 6 Result Time 2018-06-05 08:13:00Unknown Test Item Value Reference Range Comments Unknown (test code = 736-9) 5.4 % Unknown Unknown F Ordering Physician UnknownLaboratory Uihmemk2175-95-35 08:13:00Identifier 49643- 6 Result Time 2018-06-05 08:13:00Unknown Test Item Value Reference Range Comments Unknown (test code = 718-7) 12.3 g/dL Unknown 14.0-18.0 F Ordering Physician UnknownLaboratory Rwewpwe8225-40-27 08:13:00Identifier 42207- 6 Result Time 2018-06-05 08:13:00Unknown Test Item Value Reference Range Comments Unknown (test code = 4544-3) 40 % Unknown 36-46 F Ordering Physician UnknownLaboratory Hqykoxz3786-73-98 08:13:00Identifier 80737- 6 Result Time 2018-06-05 08:13:00Unknown Test Item Value Reference Range Comments Unknown (test code = 713-8) 0.8 % Unknown Unknown F Ordering Physician UnknownLaboratory Qfbudwn6045-84-78 08:13:00Identifier 86775- 6 Result Time 2018-06-05 08:13:00Unknown Test Item Value Reference Range Comments Unknown (test code = 706-2) 0.5 % Unknown Unknown F Ordering Physician UnknownLaboratory Fdeuydy3811-41-18 08:13:00Identifier 10730- 6 Result Time 2018-06-05 08:13:00Unknown Test Item Value Reference Range Comments Unknown (test code = SFR8892) 23.2 10^3/ul Unknown 1.5-7.7 F Ordering Physician UnknownLaboratory Arjmlti4929-28-46 08:13:00Identifier 28645- 6 Result Time 2018-06-05 08:13:00Unknown Test Item Value Reference Range Comments Unknown (test code = 742-7) 2.4 10^3/ul Unknown 0-0.8 F Ordering Physician UnknownLaboratory Pbwppvh3284-00-76 08:13:00Identifier 80026- 6 Result Time 2018-06-05 08:13:00Unknown Test Item Value Reference Range Comments Unknown (test code = 731-0) 1.5 10^3/ul Unknown 1.0-4.8 F Ordering Physician UnknownLaboratory Kofvsot0733-14-90 08:13:00Identifier 81723- 6 Result Time 2018-06-05 08:13:00Unknown Test Item Value Reference Range Comments Unknown (test code = 711-2) 0.2 10^3/ul Unknown 0-0.6 F Ordering Physician UnknownLaboratory Qesmjhn9562-23-03 08:13:00Identifier 63929- 6 Result Time 2018-06-05 08:13:00Unknown Test Item Value Reference Range Comments Unknown (test code = 704-7) 0.1 10^3/ul Unknown 0-0.2 F Ordering Physician UnknownLaboratory Iaxwfyi0862-19-76 06:46:00Identifier 66639- 6 Result Time 2018-06-04 06:46:00Unknown Test Item Value Reference Range Comments Unknown (test code = 35527-5) 0.05 ng/mL Unknown Unknown F Ordering Physician UnknownLaboratory Ngwckor3051-17-85 06:46:00Identifier 63135- 6 Result Time 2018-06-04 06:46:00Unknown Test Item Value Reference Range Comments Unknown (test code = 2777-1) 2.8 mg/dL Unknown 2.5-5.0 F Ordering Physician UnknownLaboratory Oehgaan6305-24-30 06:46:00Identifier 76441- 6 Result Time 2018-06-04 06:46:00Unknown Test Item Value Reference Range Comments Unknown (test code = 75949-5) 2.5 mg/dL Unknown 1.9-2.7 F Ordering Physician UnknownLaboratory Pyntmbf6319-19-40 10:48:00Identifier 09770- 6 Result Time 2018-06-03 10:48:00Unknown Test Item Value Reference Range Comments Unknown (test code = NullTestCode) 6.0 Unknown 5-9 F Ordering Physician UnknownLaboratory Hwjqolj1154-30-47 10:48:00Identifier 78559- 6 Result Time 2018-06-03 10:48:00Unknown Test Item Value Reference Range Comments Unknown (test code = 09281-7) 1.013 Unknown 1.010-1.030 F Ordering Physician UnknownLaboratory Apmqvnh8452-96-30 10:15:00Identifier 56175- 6 Result Time 2018-06-03 10:15:00Unknown Test Item Value Reference Range Comments Unknown (test code = 3016-3) 3.38 mcIU/mL Unknown 0.34-5.60 F Ordering Physician UnknownLaboratory Siellrq5567-60-66 10:15:00Identifier 02918- 6 Result Time 2018-06-03 10:15:00Unknown Test Item Value Reference Range Comments Unknown (test code = 22593-3) 1.14 Unknown 0.77-1.02 F Ordering Physician UnknownLaboratory Jvbhahy7575-57-41 10:15:00Identifier 50604- 6 Result Time 2018-06-03 10:15:00Unknown Test Item Value Reference Range Comments Unknown (test code = 27793-9) 365 pg/mL Unknown Unknown F Ordering Physician UnknownLaboratory Ovstumc7621-28-42 10:15:00Identifier 92010- 6 Result Time 2018-06-03 10:15:00Unknown Test Item Value Reference Range Comments Unknown (test code = 2885-2) 8.9 g/dL Unknown 6.4-8.9 F Ordering Physician UnknownLaboratory Tubpvmv8090-47-24 10:15:00Identifier 45060- 6 Result Time 2018-06-03 10:15:00Unknown Test Item Value Reference Range Comments Unknown (test code = 1975-2) 0.60 mg/dL Unknown 0.2-1.0 F Ordering Physician UnknownLaboratory Nzoufoi3614-85-58 10:15:00Identifier 84298- 6 Result Time 2018-06-03 10:15:00Unknown Test Item Value Reference Range Comments Unknown (test code = NullTestCode) 4.9 g/dL Unknown 2-4 F Ordering Physician UnknownLaboratory Uyrwkxz7621-86-46 10:15:00Identifier 07267- 6 Result Time 2018-06-03 10:15:00Unknown Test Item Value Reference Range Comments Unknown (test code = 1988-5) 11.17 mg/L Unknown 0-8.00 F Ordering Physician UnknownLaboratory Yotvhym3050-87-27 10:15:00Identifier 17864- 6 Result Time 2018-06-03 10:15:00Unknown Test Item Value Reference Range Comments Unknown (test code = 1920-8) 25 U/L Unknown 13-39 F Ordering Physician UnknownLaboratory Otsmxwb0651-69-12 10:15:00Identifier 93048- 6 Result Time 2018-06-03 10:15:00Unknown Test Item Value Reference Range Comments Unknown (test code = 6768-6) 153 U/L Unknown 34-104 F Ordering Physician UnknownLaboratory Sieavej2188-63-89 10:15:00Identifier 01612- 6 Result Time 2018-06-03 10:15:00Unknown Test Item Value Reference Range Comments Unknown (test code = 1759-0) 0.8 Unknown 1-3 F Ordering Physician UnknownLaboratory Yauhbsi0589-23-99 10:15:00Identifier 25463- 6 Result Time 2018-06-03 10:15:00Unknown Test Item Value Reference Range Comments Unknown (test code = 84195-2) 4.0 g/dL Unknown 3.2-5.2 F Ordering Physician UnknownLaboratory Dwznybl5139-63-17 10:15:00Identifier 74207- 6 Result Time 2018-06-03 10:15:00Unknown Test Item Value Reference Range Comments Unknown (test code = 1742-6) 13 U/L Unknown 7-52 F Ordering Physician UnknownLaboratory Jbmuync7094-99-47 10:15:00Identifier 08671- 6 Result Time 2018-06-03 10:15:00Unknown Test Item Value Reference Range Comments Unknown (test code = 2524-7) 0.9 mmol/L Unknown 0.5-2.0 F Ordering Physician Unknown
--- OUTSIDE RECORDS SUMMARY | 2019-01-21 16:47 | XMS REPORT ---
:1930 Author Organization [facility] Care Team Providers Name Role [...] Result Comments Laboratory Studies 2018-06-05 08:13:00 Identifier [id number] Result Time Unknown 2018-06-05 08:13:00 Test Item Value Reference Range Comments Unknown (test code = 2951-2) 136 mmol/L Unknown 135-145 F Ordering Physician UnknownLaboratory Ndtozvj1569-18-50 08:13:00Identifier [id number]- 6 Result Time 2018-06-05 08:13:00Unknown Test Item Value Reference Range Comments Unknown (test code = 2823-3) 4.0 mmol/L Unknown 3.5-5.0 F Ordering Physician UnknownLaboratory Roqvrad1324-42-51 08:13:00Identifier [id number]- 6 Result Time 2018-06-05 08:13:00Unknown Test Item Value Reference Range Comments Unknown (test code = 2345-7) 87 mg/dL Unknown 70-100 F Ordering Physician UnknownLaboratory Nvkfedq5326-61-54 08:13:00Identifier 60690- 6 Result Time 2018-06-05 08:13:00Unknown Test Item Value Reference Range Comments Unknown (test code = 08239-1) 46.9 Unknown Unknown F Ordering Physician UnknownLaboratory Rekxmsz5627-56-51 08:13:00Identifier 01077- 6 Result Time 2018-06-05 08:13:00Unknown Test Item Value Reference Range Comments Unknown (test code = NullTestCode) 56.7 Unknown Unknown F Ordering Physician UnknownLaboratory Rgpefvp4614-23-99 08:13:00Identifier 71095- 6 Result Time 2018-06-05 08:13:00Unknown Test Item Value Reference Range Comments Unknown (test code = 2160-0) 1.43 mg/dL Unknown 0.67-1.17 F Ordering Physician UnknownLaboratory Tqppicl5884-14-31 08:13:00Identifier 94460- 6 Result Time 2018-06-05 08:13:00Unknown Test Item Value Reference Range Comments Unknown (test code = 2075-0) 104 mmol/L Unknown 101-111 F Ordering Physician UnknownLaboratory Arzlbps3450-55-10 08:13:00Identifier 46082- 6 Result Time 2018-06-05 08:13:00Unknown Test Item Value Reference Range Comments Unknown (test code = 2028-9) 24 mmol/L Unknown 22-32 F Ordering Physician UnknownLaboratory Azhjtfl1061-84-34 08:13:00Identifier 90823- 6 Result Time 2018-06-05 08:13:00Unknown Test Item Value Reference Range Comments Unknown (test code = 77915-3) 9.0 mg/dL Unknown 8.6-10.3 F Ordering Physician UnknownLaboratory Zyuhyos2932-91-01 08:13:00Identifier [id number]- 6 Result Time 2018-06-05 08:13:00Unknown Test Item Value Reference Range Comments Unknown (test code = 3094-0) 24 mg/dL Unknown 6-24 F Ordering Physician UnknownLaboratory Yzhumsa9714-85-76 08:13:00Identifier 08663- 6 Result Time 2018-06-05 08:13:00Unknown Test Item Value Reference Range Comments Unknown (test code = 3097-3) 16.8 Unknown 8-20 F Ordering Physician UnknownLaboratory Vljkzsa0392-45-99 08:13:00Identifier 73090- 6 Result Time 2018-06-05 08:13:00Unknown Test Item Value Reference Range Comments Unknown (test code = 83521-5) 8 mmol/L Unknown 2-11 F Ordering Physician UnknownLaboratory Xsiqgvs7473-76-30 08:13:00Identifier 48166- 6 Result Time 2018-06-05 08:13:00Unknown Test Item Value Reference Range Comments Unknown (test code = 44016-1) 27.4 10^3/uL Unknown 3.5-10.8 F Ordering Physician UnknownLaboratory Wmxxwsq5436-73-40 08:13:00Identifier 25030- 6 Result Time 2018-06-05 08:13:00Unknown Test Item Value Reference Range Comments Unknown (test code = 788-0) 24 % Unknown 10.5-15 F Ordering Physician UnknownLaboratory Exnfnbz8329-69-71 08:13:00Identifier 40774- 6 Result Time 2018-06-05 08:13:00Unknown Test Item Value Reference Range Comments Unknown (test code = 789-8) 5.19 10^6 /uL Unknown 4.18-5.48 F Ordering Physician UnknownLaboratory Yiwnwqz6095-33-05 08:13:00Identifier 65354- 6 Result Time 2018-06-05 08:13:00Unknown Test Item Value Reference Range Comments Unknown (test code = 777-3) 330 10^3/uL Unknown 150-450 F Ordering Physician UnknownLaboratory Toxvasb3838-73-78 08:13:00Identifier 42239- 6 Result Time 2018-06-05 08:13:00Unknown Test Item Value Reference Range Comments Unknown (test code = 70546-0) 0 Unknown Unknown F Ordering Physician UnknownLaboratory Tukkubf2779-59-01 08:13:00Identifier 97828- 6 Result Time 2018-06-05 08:13:00Unknown Test Item Value Reference Range Comments Unknown (test code = 771-6) 0 10^3/ul Unknown Unknown F Ordering Physician UnknownLaboratory Tnnjwag0591-80-65 08:13:00Identifier 37222- 6 Result Time 2018-06-05 08:13:00Unknown Test Item Value Reference Range Comments Unknown (test code = 770-8) 84.7 % Unknown Unknown F Ordering Physician UnknownLaboratory Zlmmiao1005-03-44 08:13:00Identifier 97204- 6 Result Time 2018-06-05 08:13:00Unknown Test Item Value Reference Range Comments Unknown (test code = 5905-5) 8.6 % Unknown Unknown F Ordering Physician UnknownLaboratory Xyrdura5709-76-14 08:13:00Identifier 99188- 6 Result Time 2018-06-05 08:13:00Unknown Test Item Value Reference Range Comments Unknown (test code = 06756-2) 8.6 fL Unknown 7.4-10.4 F Ordering Physician UnknownLaboratory Ctslxfo3038-71-59 08:13:00Identifier 85260- 6 Result Time 2018-06-05 08:13:00Unknown Test Item Value Reference Range Comments Unknown (test code = 787-2) 78 fL Unknown 80-94 F Ordering Physician UnknownLaboratory Qstvfcq5389-41-51 08:13:00Identifier 94465- 6 Result Time 2018-06-05 08:13:00Unknown Test Item Value Reference Range Comments Unknown (test code = 786-4) 31 g/dL Unknown 31-36 F Ordering Physician UnknownLaboratory Gonhpqd1205-97-83 08:13:00Identifier 29368- 6 Result Time 2018-06-05 08:13:00Unknown Test Item Value Reference Range Comments Unknown (test code = 785-6) 24 pg Unknown 27-31 F Ordering Physician UnknownLaboratory Rdipuvd4589-84-35 08:13:00Identifier 04155- 6 Result Time 2018-06-05 08:13:00Unknown Test Item Value Reference Range Comments Unknown (test code = 736-9) 5.4 % Unknown Unknown F Ordering Physician UnknownLaboratory Rmrwsbr4576-79-08 08:13:00Identifier 19968- 6 Result Time 2018-06-05 08:13:00Unknown Test Item Value Reference Range Comments Unknown (test code = 718-7) 12.3 g/dL Unknown 14.0-18.0 F Ordering Physician UnknownLaboratory Qqfnaca2129-74-63 08:13:00Identifier 44198- 6 Result Time 2018-06-05 08:13:00Unknown Test Item Value Reference Range Comments Unknown (test code = 4544-3) 40 % Unknown 36-46 F Ordering Physician UnknownLaboratory Xqwgfvt2725-28-76 08:13:00Identifier 94369- 6 Result Time 2018-06-05 08:13:00Unknown Test Item Value Reference Range Comments Unknown (test code = 713-8) 0.8 % Unknown Unknown F Ordering Physician UnknownLaboratory Vjtfzho6499-92-50 08:13:00Identifier 45905- 6 Result Time 2018-06-05 08:13:00Unknown Test Item Value Reference Range Comments Unknown (test code = 706-2) 0.5 % Unknown Unknown F Ordering Physician UnknownLaboratory Vhcpazw4358-30-44 08:13:00Identifier 23481- 6 Result Time 2018-06-05 08:13:00Unknown Test Item Value Reference Range Comments Unknown (test code = VGX5038) 23.2 10^3/ul Unknown 1.5-7.7 F Ordering Physician UnknownLaboratory Cmaahjx8990-72-40 08:13:00Identifier 67312- 6 Result Time 2018-06-05 08:13:00Unknown Test Item Value Reference Range Comments Unknown (test code = 742-7) 2.4 10^3/ul Unknown 0-0.8 F Ordering Physician UnknownLaboratory Vhsdyyd3102-95-67 08:13:00Identifier 68883- 6 Result Time 2018-06-05 08:13:00Unknown Test Item Value Reference Range Comments Unknown (test code = 731-0) 1.5 10^3/ul Unknown 1.0-4.8 F Ordering Physician UnknownLaboratory Huhifro3643-43-94 08:13:00Identifier 28596- 6 Result Time 2018-06-05 08:13:00Unknown Test Item Value Reference Range Comments Unknown (test code = 711-2) 0.2 10^3/ul Unknown 0-0.6 F Ordering Physician UnknownLaboratory Rlqareb3659-01-13 08:13:00Identifier 58369- 6 Result Time 2018-06-05 08:13:00Unknown Test Item Value Reference Range Comments Unknown (test code = 704-7) 0.1 10^3/ul Unknown 0-0.2 F Ordering Physician UnknownLaboratory Nxniaxf9903-56-22 06:46:00Identifier 68300- 6 Result Time 2018-06-04 06:46:00Unknown Test Item Value Reference Range Comments Unknown (test code = 04826-8) 0.05 ng/mL Unknown Unknown F Ordering Physician UnknownLaboratory Ehjbpzy4172-16-28 06:46:00Identifier 10312- 6 Result Time 2018-06-04 06:46:00Unknown Test Item Value Reference Range Comments Unknown (test code = 2777-1) 2.8 mg/dL Unknown 2.5-5.0 F Ordering Physician UnknownLaboratory Ezrkixn6008-47-38 06:46:00Identifier 43858- 6 Result Time 2018-06-04 06:46:00Unknown Test Item Value Reference Range Comments Unknown (test code = 71509-3) 2.5 mg/dL Unknown 1.9-2.7 F Ordering Physician UnknownLaboratory Ofjkveu5272-59-85 10:48:00Identifier 12663- 6 Result Time 2018-06-03 10:48:00Unknown Test Item Value Reference Range Comments Unknown (test code = NullTestCode) 6.0 Unknown 5-9 F Ordering Physician UnknownLaboratory Elpogsi5514-51-96 10:48:00Identifier 30047- 6 Result Time 2018-06-03 10:48:00Unknown Test Item Value Reference Range Comments Unknown (test code = 90912-3) 1.013 Unknown 1.010-1.030 F Ordering Physician UnknownLaboratory Sniuyty7540-01-47 10:15:00Identifier 39666- 6 Result Time 2018-06-03 10:15:00Unknown Test Item Value Reference Range Comments Unknown (test code = 3016-3) 3.38 mcIU/mL Unknown 0.34-5.60 F Ordering Physician UnknownLaboratory Pwccsvc8130-39-79 10:15:00Identifier 99439- 6 Result Time 2018-06-03 10:15:00Unknown Test Item Value Reference Range Comments Unknown (test code = 72467-0) 1.14 Unknown 0.77-1.02 F Ordering Physician UnknownLaboratory Jqxnazz7448-68-18 10:15:00Identifier 34010- 6 Result Time 2018-06-03 10:15:00Unknown Test Item Value Reference Range Comments Unknown (test code = 52621-6) 365 pg/mL Unknown Unknown F Ordering Physician UnknownLaboratory Gydhosq8482-14-70 10:15:00Identifier 00097- 6 Result Time 2018-06-03 10:15:00Unknown Test Item Value Reference Range Comments Unknown (test code = 2885-2) 8.9 g/dL Unknown 6.4-8.9 F Ordering Physician UnknownLaboratory Dagzcsn0506-83-33 10:15:00Identifier 23878- 6 Result Time 2018-06-03 10:15:00Unknown Test Item Value Reference Range Comments Unknown (test code = 1975-2) 0.60 mg/dL Unknown 0.2-1.0 F Ordering Physician UnknownLaboratory Hwyjzcf9742-86-93 10:15:00Identifier 54799- 6 Result Time 2018-06-03 10:15:00Unknown Test Item Value Reference Range Comments Unknown (test code = NullTestCode) 4.9 g/dL Unknown 2-4 F Ordering Physician UnknownLaboratory Zakgqcr8164-56-20 10:15:00Identifier 33747- 6 Result Time 2018-06-03 10:15:00Unknown Test Item Value Reference Range Comments Unknown (test code = 1988-5) 11.17 mg/L Unknown 0-8.00 F Ordering Physician UnknownLaboratory Koebmpl9331-70-63 10:15:00Identifier 39949- 6 Result Time 2018-06-03 10:15:00Unknown Test Item Value Reference Range Comments Unknown (test code = 1920-8) 25 U/L Unknown 13-39 F Ordering Physician UnknownLaboratory Bkjwmkp8897-86-87 10:15:00Identifier 14377- 6 Result Time 2018-06-03 10:15:00Unknown Test Item Value Reference Range Comments Unknown (test code = 6768-6) 153 U/L Unknown 34-104 F Ordering Physician UnknownLaboratory Awmpytf9453-05-80 10:15:00Identifier 65754- 6 Result Time 2018-06-03 10:15:00Unknown Test Item Value Reference Range Comments Unknown (test code = 1759-0) 0.8 Unknown 1-3 F Ordering Physician UnknownLaboratory Pxxkxjy3718-34-60 10:15:00Identifier 16376- 6 Result Time 2018-06-03 10:15:00Unknown Test Item Value Reference Range Comments Unknown (test code = 82792-7) 4.0 g/dL Unknown 3.2-5.2 F Ordering Physician UnknownLaboratory Bvntdhm5787-61-55 10:15:00Identifier 62378- 6 Result Time 2018-06-03 10:15:00Unknown Test Item Value Reference Range Comments Unknown (test code = 1742-6) 13 U/L Unknown 7-52 F Ordering Physician UnknownLaboratory Zklskvq7395-21-93 10:15:00Identifier 06977- 6 Result Time 2018-06-03 10:15:00Unknown Test Item Value Reference Range Comments Unknown (test code = 2524-7) 0.9 mmol/L Unknown 0.5-2.0 F Ordering Physician Unknown
--- OUTSIDE RECORDS SUMMARY | 2019-01-21 16:48 | XMS REPORT ---
:1930 Author Organization [facility] Care Team Providers Name Role Phone [...] Result Comments Laboratory Studies 2018-06-05 08:13:00 Identifier [id number] Result Time Unknown 2018-06-05 08:13:00 Test Item Value Reference Range Comments Unknown (test code = 2951-2) 136 mmol/L Unknown 135-145 F Ordering Physician UnknownLaboratory Zcrubfl7961-60-58 08:13:00Identifier 78495- 6 Result Time 2018-06-05 08:13:00Unknown Test Item Value Reference Range Comments Unknown (test code = 2823-3) 4.0 mmol/L Unknown 3.5-5.0 F Ordering Physician UnknownLaboratory Ueeemxv2445-76-48 08:13:00Identifier 19230- 6 Result Time 2018-06-05 08:13:00Unknown Test Item Value Reference Range Comments Unknown (test code = 2345-7) 87 mg/dL Unknown 70-100 F Ordering Physician UnknownLaboratory Jboymfh8580-23-79 08:13:00Identifier 33540- 6 Result Time 2018-06-05 08:13:00Unknown Test Item Value Reference Range Comments Unknown (test code = 66310-0) 46.9 Unknown Unknown F Ordering Physician UnknownLaboratory Pdbrvoa8591-86-48 08:13:00Identifier 58891- 6 Result Time 2018-06-05 08:13:00Unknown Test Item Value Reference Range Comments Unknown (test code = NullTestCode) 56.7 Unknown Unknown F Ordering Physician UnknownLaboratory Xdynbqo8543-75-73 08:13:00Identifier 79337- 6 Result Time 2018-06-05 08:13:00Unknown Test Item Value Reference Range Comments Unknown (test code = 2160-0) 1.43 mg/dL Unknown 0.67-1.17 F Ordering Physician UnknownLaboratory Xkpyfky3662-68-50 08:13:00Identifier 83131- 6 Result Time 2018-06-05 08:13:00Unknown Test Item Value Reference Range Comments Unknown (test code = 2075-0) 104 mmol/L Unknown 101-111 F Ordering Physician UnknownLaboratory Bubukml4015-32-65 08:13:00Identifier 59894- 6 Result Time 2018-06-05 08:13:00Unknown Test Item Value Reference Range Comments Unknown (test code = 2028-9) 24 mmol/L Unknown 22-32 F Ordering Physician UnknownLaboratory Byfgjmd3501-89-49 08:13:00Identifier 55108- 6 Result Time 2018-06-05 08:13:00Unknown Test Item Value Reference Range Comments Unknown (test code = 77714-8) 9.0 mg/dL Unknown 8.6-10.3 F Ordering Physician UnknownLaboratory Tlwvhao8693-51-48 08:13:00Identifier 80934- 6 Result Time 2018-06-05 08:13:00Unknown Test Item Value Reference Range Comments Unknown (test code = 3094-0) 24 mg/dL Unknown 6-24 F Ordering Physician UnknownLaboratory Mjdxyke7563-80-66 08:13:00Identifier 75993- 6 Result Time 2018-06-05 08:13:00Unknown Test Item Value Reference Range Comments Unknown (test code = 3097-3) 16.8 Unknown 8-20 F Ordering Physician UnknownLaboratory Wyxlzdm4676-96-57 08:13:00Identifier 31602- 6 Result Time 2018-06-05 08:13:00Unknown Test Item Value Reference Range Comments Unknown (test code = 18489-5) 8 mmol/L Unknown 2-11 F Ordering Physician UnknownLaboratory Amfarsv1136-63-86 08:13:00Identifier 96888- 6 Result Time 2018-06-05 08:13:00Unknown Test Item Value Reference Range Comments Unknown (test code = 86289-9) 27.4 10^3/uL Unknown 3.5-10.8 F Ordering Physician UnknownLaboratory Qsvwvnp3483-24-10 08:13:00Identifier 20738- 6 Result Time 2018-06-05 08:13:00Unknown Test Item Value Reference Range Comments Unknown (test code = 788-0) 24 % Unknown 10.5-15 F Ordering Physician UnknownLaboratory Quyfnlr0902-92-91 08:13:00Identifier 99375- 6 Result Time 2018-06-05 08:13:00Unknown Test Item Value Reference Range Comments Unknown (test code = 789-8) 5.19 10^6 /uL Unknown 4.18-5.48 F Ordering Physician UnknownLaboratory Hmpgssy4475-71-81 08:13:00Identifier 55701- 6 Result Time 2018-06-05 08:13:00Unknown Test Item Value Reference Range Comments Unknown (test code = 777-3) 330 10^3/uL Unknown 150-450 F Ordering Physician UnknownLaboratory Qjtcwqf9739-66-70 08:13:00Identifier 01432- 6 Result Time 2018-06-05 08:13:00Unknown Test Item Value Reference Range Comments Unknown (test code = 06645-5) 0 Unknown Unknown F Ordering Physician UnknownLaboratory Scotdpk1994-34-12 08:13:00Identifier 86811- 6 Result Time 2018-06-05 08:13:00Unknown Test Item Value Reference Range Comments Unknown (test code = 771-6) 0 10^3/ul Unknown Unknown F Ordering Physician UnknownLaboratory Hajxatj6928-35-65 08:13:00Identifier 51683- 6 Result Time 2018-06-05 08:13:00Unknown Test Item Value Reference Range Comments Unknown (test code = 770-8) 84.7 % Unknown Unknown F Ordering Physician UnknownLaboratory Ldgcfot7499-56-93 08:13:00Identifier 81436- 6 Result Time 2018-06-05 08:13:00Unknown Test Item Value Reference Range Comments Unknown (test code = 5905-5) 8.6 % Unknown Unknown F Ordering Physician UnknownLaboratory Srcjhil8298-41-09 08:13:00Identifier 81639- 6 Result Time 2018-06-05 08:13:00Unknown Test Item Value Reference Range Comments Unknown (test code = 88650-5) 8.6 fL Unknown 7.4-10.4 F Ordering Physician UnknownLaboratory Gctibpt2943-36-58 08:13:00Identifier 99754- 6 Result Time 2018-06-05 08:13:00Unknown Test Item Value Reference Range Comments Unknown (test code = 787-2) 78 fL Unknown 80-94 F Ordering Physician UnknownLaboratory Pwyzmbt1577-67-30 08:13:00Identifier 10668- 6 Result Time 2018-06-05 08:13:00Unknown Test Item Value Reference Range Comments Unknown (test code = 786-4) 31 g/dL Unknown 31-36 F Ordering Physician UnknownLaboratory Qxtsmyv8134-75-15 08:13:00Identifier 66021- 6 Result Time 2018-06-05 08:13:00Unknown Test Item Value Reference Range Comments Unknown (test code = 785-6) 24 pg Unknown 27-31 F Ordering Physician UnknownLaboratory Ewagzmw4928-45-99 08:13:00Identifier 17317- 6 Result Time 2018-06-05 08:13:00Unknown Test Item Value Reference Range Comments Unknown (test code = 736-9) 5.4 % Unknown Unknown F Ordering Physician UnknownLaboratory Kslkepq3718-60-00 08:13:00Identifier 25758- 6 Result Time 2018-06-05 08:13:00Unknown Test Item Value Reference Range Comments Unknown (test code = 718-7) 12.3 g/dL Unknown 14.0-18.0 F Ordering Physician UnknownLaboratory Dxkwzfp5949-96-97 08:13:00Identifier 41891- 6 Result Time 2018-06-05 08:13:00Unknown Test Item Value Reference Range Comments Unknown (test code = 4544-3) 40 % Unknown 36-46 F Ordering Physician UnknownLaboratory Cmlweyc7279-54-04 08:13:00Identifier 75997- 6 Result Time 2018-06-05 08:13:00Unknown Test Item Value Reference Range Comments Unknown (test code = 713-8) 0.8 % Unknown Unknown F Ordering Physician UnknownLaboratory Uwpaxhs4382-27-90 08:13:00Identifier 40176- 6 Result Time 2018-06-05 08:13:00Unknown Test Item Value Reference Range Comments Unknown (test code = 706-2) 0.5 % Unknown Unknown F Ordering Physician UnknownLaboratory Qwhcunt2080-53-83 08:13:00Identifier 85172- 6 Result Time 2018-06-05 08:13:00Unknown Test Item Value Reference Range Comments Unknown (test code = MCI1545) 23.2 10^3/ul Unknown 1.5-7.7 F Ordering Physician UnknownLaboratory Alwwirp8588-74-56 08:13:00Identifier 47994- 6 Result Time 2018-06-05 08:13:00Unknown Test Item Value Reference Range Comments Unknown (test code = 742-7) 2.4 10^3/ul Unknown 0-0.8 F Ordering Physician UnknownLaboratory Nomtunx5692-26-17 08:13:00Identifier 30076- 6 Result Time 2018-06-05 08:13:00Unknown Test Item Value Reference Range Comments Unknown (test code = 731-0) 1.5 10^3/ul Unknown 1.0-4.8 F Ordering Physician UnknownLaboratory Yhbdieq8171-72-91 08:13:00Identifier 68562- 6 Result Time 2018-06-05 08:13:00Unknown Test Item Value Reference Range Comments Unknown (test code = 711-2) 0.2 10^3/ul Unknown 0-0.6 F Ordering Physician UnknownLaboratory Hgbnvjh9219-01-90 08:13:00Identifier 03382- 6 Result Time 2018-06-05 08:13:00Unknown Test Item Value Reference Range Comments Unknown (test code = 704-7) 0.1 10^3/ul Unknown 0-0.2 F Ordering Physician UnknownLaboratory Etjyhoo3228-68-77 06:46:00Identifier 92109- 6 Result Time 2018-06-04 06:46:00Unknown Test Item Value Reference Range Comments Unknown (test code = 31953-9) 0.05 ng/mL Unknown Unknown F Ordering Physician UnknownLaboratory Ugmptth8581-64-94 06:46:00Identifier 56410- 6 Result Time 2018-06-04 06:46:00Unknown Test Item Value Reference Range Comments Unknown (test code = 2777-1) 2.8 mg/dL Unknown 2.5-5.0 F Ordering Physician UnknownLaboratory Sncxadj9617-99-25 06:46:00Identifier 67999- 6 Result Time 2018-06-04 06:46:00Unknown Test Item Value Reference Range Comments Unknown (test code = 46717-8) 2.5 mg/dL Unknown 1.9-2.7 F Ordering Physician UnknownLaboratory Nbxcwoh7977-92-34 10:48:00Identifier 18022- 6 Result Time 2018-06-03 10:48:00Unknown Test Item Value Reference Range Comments Unknown (test code = NullTestCode) 6.0 Unknown 5-9 F Ordering Physician UnknownLaboratory Hhbfyyd8201-72-60 10:48:00Identifier 83045- 6 Result Time 2018-06-03 10:48:00Unknown Test Item Value Reference Range Comments Unknown (test code = 10694-5) 1.013 Unknown 1.010-1.030 F Ordering Physician UnknownLaboratory Hrrudja6741-90-61 10:15:00Identifier 75308- 6 Result Time 2018-06-03 10:15:00Unknown Test Item Value Reference Range Comments Unknown (test code = 3016-3) 3.38 mcIU/mL Unknown 0.34-5.60 F Ordering Physician UnknownLaboratory Nxbyasx5918-59-16 10:15:00Identifier 92710- 6 Result Time 2018-06-03 10:15:00Unknown Test Item Value Reference Range Comments Unknown (test code = 37762-2) 1.14 Unknown 0.77-1.02 F Ordering Physician UnknownLaboratory Faaorru0049-06-39 10:15:00Identifier 08348- 6 Result Time 2018-06-03 10:15:00Unknown Test Item Value Reference Range Comments Unknown (test code = 48249-8) 365 pg/mL Unknown Unknown F Ordering Physician UnknownLaboratory Hoiprab5971-37-56 10:15:00Identifier 82795- 6 Result Time 2018-06-03 10:15:00Unknown Test Item Value Reference Range Comments Unknown (test code = 2885-2) 8.9 g/dL Unknown 6.4-8.9 F Ordering Physician UnknownLaboratory Hvynqae0996-97-51 10:15:00Identifier 57341- 6 Result Time 2018-06-03 10:15:00Unknown Test Item Value Reference Range Comments Unknown (test code = 1975-2) 0.60 mg/dL Unknown 0.2-1.0 F Ordering Physician UnknownLaboratory Slzrxjl7919-25-29 10:15:00Identifier 28782- 6 Result Time 2018-06-03 10:15:00Unknown Test Item Value Reference Range Comments Unknown (test code = NullTestCode) 4.9 g/dL Unknown 2-4 F Ordering Physician UnknownLaboratory Lyorjyw3914-88-20 10:15:00Identifier 17505- 6 Result Time 2018-06-03 10:15:00Unknown Test Item Value Reference Range Comments Unknown (test code = 1988-5) 11.17 mg/L Unknown 0-8.00 F Ordering Physician UnknownLaboratory Hyoewbu7133-86-37 10:15:00Identifier 58369- 6 Result Time 2018-06-03 10:15:00Unknown Test Item Value Reference Range Comments Unknown (test code = 1920-8) 25 U/L Unknown 13-39 F Ordering Physician UnknownLaboratory Jvligfw2305-57-51 10:15:00Identifier 10922- 6 Result Time 2018-06-03 10:15:00Unknown Test Item Value Reference Range Comments Unknown (test code = 6768-6) 153 U/L Unknown 34-104 F Ordering Physician UnknownLaboratory Oajxdhz6319-21-96 10:15:00Identifier 42532- 6 Result Time 2018-06-03 10:15:00Unknown Test Item Value Reference Range Comments Unknown (test code = 1759-0) 0.8 Unknown 1-3 F Ordering Physician UnknownLaboratory Ylcghyh6881-17-51 10:15:00Identifier 69098- 6 Result Time 2018-06-03 10:15:00Unknown Test Item Value Reference Range Comments Unknown (test code = 20761-5) 4.0 g/dL Unknown 3.2-5.2 F Ordering Physician UnknownLaboratory Jbnnlxs3130-80-50 10:15:00Identifier 66861- 6 Result Time 2018-06-03 10:15:00Unknown Test Item Value Reference Range Comments Unknown (test code = 1742-6) 13 U/L Unknown 7-52 F Ordering Physician UnknownLaboratory Qzqbiab8421-88-59 10:15:00Identifier 32125- 6 Result Time 2018-06-03 10:15:00Unknown Test Item Value Reference Range Comments Unknown (test code = 2524-7) 0.9 mmol/L Unknown 0.5-2.0 F Ordering Physician Unknown
--- OUTSIDE RECORDS SUMMARY | 2019-01-21 16:48 | XMS REPORT ---
:1930 Author Organization [facility] Care Team Providers Name Role Phone Unavailable Unavailable Unavailable Problems This patient has no known problems. Allergies, Adverse Reactions, Alerts Allergy Allergy Status Severity Reaction(s) Onset Inactive Treating Comments Name Type Date Date Clinician Uncoded Unknown Active Unknown Reaction 2018-05 Interface free-text allergy Medications Ordered Filled Start Stop Current [...] Result Comments Laboratory Studies 2018-06-05 08:13:00 Identifier [id number] Result Time Unknown 2018-06-05 08:13:00 Test Item Value Reference Range Comments Unknown (test code = 2951-2) 136 mmol/L Unknown 135-145 F Ordering Physician UnknownLaboratory Wmhmrst4639-13-35 08:13:00Identifier 32246- 6 Result Time 2018-06-05 08:13:00Unknown Test Item Value Reference Range Comments Unknown (test code = 2823-3) 4.0 mmol/L Unknown 3.5-5.0 F Ordering Physician UnknownLaboratory Usnmicg7094-03-47 08:13:00Identifier 13140- 6 Result Time 2018-06-05 08:13:00Unknown Test Item Value Reference Range Comments Unknown (test code = 2345-7) 87 mg/dL Unknown 70-100 F Ordering Physician UnknownLaboratory Dmxtfbr7937-94-27 08:13:00Identifier 03408- 6 Result Time 2018-06-05 08:13:00Unknown Test Item Value Reference Range Comments Unknown (test code = 05762-1) 46.9 Unknown Unknown F Ordering Physician UnknownLaboratory Usmbzfj3612-30-80 08:13:00Identifier 74072- 6 Result Time 2018-06-05 08:13:00Unknown Test Item Value Reference Range Comments Unknown (test code = NullTestCode) 56.7 Unknown Unknown F Ordering Physician UnknownLaboratory Blsaozk0318-89-61 08:13:00Identifier 91841- 6 Result Time 2018-06-05 08:13:00Unknown Test Item Value Reference Range Comments Unknown (test code = 2160-0) 1.43 mg/dL Unknown 0.67-1.17 F Ordering Physician UnknownLaboratory Xjjnugd1044-89-27 08:13:00Identifier 12000- 6 Result Time 2018-06-05 08:13:00Unknown Test Item Value Reference Range Comments Unknown (test code = 2075-0) 104 mmol/L Unknown 101-111 F Ordering Physician UnknownLaboratory Jeamhkg2333-02-16 08:13:00Identifier 50491- 6 Result Time 2018-06-05 08:13:00Unknown Test Item Value Reference Range Comments Unknown (test code = 2028-9) 24 mmol/L Unknown 22-32 F Ordering Physician UnknownLaboratory Xwcltnn1133-25-85 08:13:00Identifier 34756- 6 Result Time 2018-06-05 08:13:00Unknown Test Item Value Reference Range Comments Unknown (test code = 00200-6) 9.0 mg/dL Unknown 8.6-10.3 F Ordering Physician UnknownLaboratory Xdsfazr4006-08-06 08:13:00Identifier 16537- 6 Result Time 2018-06-05 08:13:00Unknown Test Item Value Reference Range Comments Unknown (test code = 3094-0) 24 mg/dL Unknown 6-24 F Ordering Physician UnknownLaboratory Csluyax9185-41-05 08:13:00Identifier 88127- 6 Result Time 2018-06-05 08:13:00Unknown Test Item Value Reference Range Comments Unknown (test code = 3097-3) 16.8 Unknown 8-20 F Ordering Physician UnknownLaboratory Hgtvmbp5215-74-52 08:13:00Identifier 56368- 6 Result Time 2018-06-05 08:13:00Unknown Test Item Value Reference Range Comments Unknown (test code = 22466-9) 8 mmol/L Unknown 2-11 F Ordering Physician UnknownLaboratory Bvkjsvy5482-68-21 08:13:00Identifier 36826- 6 Result Time 2018-06-05 08:13:00Unknown Test Item Value Reference Range Comments Unknown (test code = 49416-4) 27.4 10^3/uL Unknown 3.5-10.8 F Ordering Physician UnknownLaboratory Uhbkkda9783-63-49 08:13:00Identifier 63566- 6 Result Time 2018-06-05 08:13:00Unknown Test Item Value Reference Range Comments Unknown (test code = 788-0) 24 % Unknown 10.5-15 F Ordering Physician UnknownLaboratory Hysxdbu3679-02-47 08:13:00Identifier 15754- 6 Result Time 2018-06-05 08:13:00Unknown Test Item Value Reference Range Comments Unknown (test code = 789-8) 5.19 10^6 /uL Unknown 4.18-5.48 F Ordering Physician UnknownLaboratory Coxfcso8603-81-96 08:13:00Identifier 05275- 6 Result Time 2018-06-05 08:13:00Unknown Test Item Value Reference Range Comments Unknown (test code = 777-3) 330 10^3/uL Unknown 150-450 F Ordering Physician UnknownLaboratory Galogwa5371-72-76 08:13:00Identifier 74565- 6 Result Time 2018-06-05 08:13:00Unknown Test Item Value Reference Range Comments Unknown (test code = 72862-6) 0 Unknown Unknown F Ordering Physician UnknownLaboratory Prnvino0561-54-43 08:13:00Identifier 10469- 6 Result Time 2018-06-05 08:13:00Unknown Test Item Value Reference Range Comments Unknown (test code = 771-6) 0 10^3/ul Unknown Unknown F Ordering Physician UnknownLaboratory Gnazugd6656-80-89 08:13:00Identifier 55501- 6 Result Time 2018-06-05 08:13:00Unknown Test Item Value Reference Range Comments Unknown (test code = 770-8) 84.7 % Unknown Unknown F Ordering Physician UnknownLaboratory Fisvtfa9930-98-55 08:13:00Identifier 32701- 6 Result Time 2018-06-05 08:13:00Unknown Test Item Value Reference Range Comments Unknown (test code = 5905-5) 8.6 % Unknown Unknown F Ordering Physician UnknownLaboratory Gqpfqzr7278-05-27 08:13:00Identifier 03532- 6 Result Time 2018-06-05 08:13:00Unknown Test Item Value Reference Range Comments Unknown (test code = 72707-7) 8.6 fL Unknown 7.4-10.4 F Ordering Physician UnknownLaboratory Whuaaek2427-35-21 08:13:00Identifier 19695- 6 Result Time 2018-06-05 08:13:00Unknown Test Item Value Reference Range Comments Unknown (test code = 787-2) 78 fL Unknown 80-94 F Ordering Physician UnknownLaboratory Jqexkmz8030-51-90 08:13:00Identifier 87084- 6 Result Time 2018-06-05 08:13:00Unknown Test Item Value Reference Range Comments Unknown (test code = 786-4) 31 g/dL Unknown 31-36 F Ordering Physician UnknownLaboratory Fdmacjp3791-12-11 08:13:00Identifier 28889- 6 Result Time 2018-06-05 08:13:00Unknown Test Item Value Reference Range Comments Unknown (test code = 785-6) 24 pg Unknown 27-31 F Ordering Physician UnknownLaboratory Jlxyywq3035-38-76 08:13:00Identifier 59594- 6 Result Time 2018-06-05 08:13:00Unknown Test Item Value Reference Range Comments Unknown (test code = 736-9) 5.4 % Unknown Unknown F Ordering Physician UnknownLaboratory Qjfiwuu6287-82-81 08:13:00Identifier 69239- 6 Result Time 2018-06-05 08:13:00Unknown Test Item Value Reference Range Comments Unknown (test code = 718-7) 12.3 g/dL Unknown 14.0-18.0 F Ordering Physician UnknownLaboratory Stjdyhn1605-48-92 08:13:00Identifier 99858- 6 Result Time 2018-06-05 08:13:00Unknown Test Item Value Reference Range Comments Unknown (test code = 4544-3) 40 % Unknown 36-46 F Ordering Physician UnknownLaboratory Uayenzr0985-88-35 08:13:00Identifier 88050- 6 Result Time 2018-06-05 08:13:00Unknown Test Item Value Reference Range Comments Unknown (test code = 713-8) 0.8 % Unknown Unknown F Ordering Physician UnknownLaboratory Vyruseb5810-80-96 08:13:00Identifier 66188- 6 Result Time 2018-06-05 08:13:00Unknown Test Item Value Reference Range Comments Unknown (test code = 706-2) 0.5 % Unknown Unknown F Ordering Physician UnknownLaboratory Bcjhmsw1968-86-10 08:13:00Identifier 88057- 6 Result Time 2018-06-05 08:13:00Unknown Test Item Value Reference Range Comments Unknown (test code = LVC7358) 23.2 10^3/ul Unknown 1.5-7.7 F Ordering Physician UnknownLaboratory Ykhfdhg2660-89-36 08:13:00Identifier 33664- 6 Result Time 2018-06-05 08:13:00Unknown Test Item Value Reference Range Comments Unknown (test code = 742-7) 2.4 10^3/ul Unknown 0-0.8 F Ordering Physician UnknownLaboratory Duedfeq8752-39-29 08:13:00Identifier 56767- 6 Result Time 2018-06-05 08:13:00Unknown Test Item Value Reference Range Comments Unknown (test code = 731-0) 1.5 10^3/ul Unknown 1.0-4.8 F Ordering Physician UnknownLaboratory Qjcsgnn4151-94-95 08:13:00Identifier 04506- 6 Result Time 2018-06-05 08:13:00Unknown Test Item Value Reference Range Comments Unknown (test code = 711-2) 0.2 10^3/ul Unknown 0-0.6 F Ordering Physician UnknownLaboratory Qcswxiz6679-82-60 08:13:00Identifier 06049- 6 Result Time 2018-06-05 08:13:00Unknown Test Item Value Reference Range Comments Unknown (test code = 704-7) 0.1 10^3/ul Unknown 0-0.2 F Ordering Physician UnknownLaboratory Rliipbq4303-45-80 06:46:00Identifier 34472- 6 Result Time 2018-06-04 06:46:00Unknown Test Item Value Reference Range Comments Unknown (test code = 43618-5) 0.05 ng/mL Unknown Unknown F Ordering Physician UnknownLaboratory Ikebshs2140-65-71 06:46:00Identifier 36542- 6 Result Time 2018-06-04 06:46:00Unknown Test Item Value Reference Range Comments Unknown (test code = 2777-1) 2.8 mg/dL Unknown 2.5-5.0 F Ordering Physician UnknownLaboratory Afjrpll9417-01-85 06:46:00Identifier 05093- 6 Result Time 2018-06-04 06:46:00Unknown Test Item Value Reference Range Comments Unknown (test code = 86660-6) 2.5 mg/dL Unknown 1.9-2.7 F Ordering Physician UnknownLaboratory Vfrsdcw8242-17-40 10:48:00Identifier 22443- 6 Result Time 2018-06-03 10:48:00Unknown Test Item Value Reference Range Comments Unknown (test code = NullTestCode) 6.0 Unknown 5-9 F Ordering Physician UnknownLaboratory Cdbczin0954-97-12 10:48:00Identifier 67202- 6 Result Time 2018-06-03 10:48:00Unknown Test Item Value Reference Range Comments Unknown (test code = 07685-4) 1.013 Unknown 1.010-1.030 F Ordering Physician UnknownLaboratory Ksslect4410-86-74 10:15:00Identifier 87026- 6 Result Time 2018-06-03 10:15:00Unknown Test Item Value Reference Range Comments Unknown (test code = 3016-3) 3.38 mcIU/mL Unknown 0.34-5.60 F Ordering Physician UnknownLaboratory Gjdspnp5717-41-04 10:15:00Identifier 74101- 6 Result Time 2018-06-03 10:15:00Unknown Test Item Value Reference Range Comments Unknown (test code = 02797-8) 1.14 Unknown 0.77-1.02 F Ordering Physician UnknownLaboratory Xokiyyo8206-27-45 10:15:00Identifier 83169- 6 Result Time 2018-06-03 10:15:00Unknown Test Item Value Reference Range Comments Unknown (test code = 34857-0) 365 pg/mL Unknown Unknown F Ordering Physician UnknownLaboratory Goncrxn8248-50-38 10:15:00Identifier 88402- 6 Result Time 2018-06-03 10:15:00Unknown Test Item Value Reference Range Comments Unknown (test code = 2885-2) 8.9 g/dL Unknown 6.4-8.9 F Ordering Physician UnknownLaboratory Kpmqqsd9457-18-26 10:15:00Identifier 92178- 6 Result Time 2018-06-03 10:15:00Unknown Test Item Value Reference Range Comments Unknown (test code = 1975-2) 0.60 mg/dL Unknown 0.2-1.0 F Ordering Physician UnknownLaboratory Zqzpfba5685-10-48 10:15:00Identifier 18680- 6 Result Time 2018-06-03 10:15:00Unknown Test Item Value Reference Range Comments Unknown (test code = NullTestCode) 4.9 g/dL Unknown 2-4 F Ordering Physician UnknownLaboratory Roimmnl9668-58-61 10:15:00Identifier 25229- 6 Result Time 2018-06-03 10:15:00Unknown Test Item Value Reference Range Comments Unknown (test code = 1988-5) 11.17 mg/L Unknown 0-8.00 F Ordering Physician UnknownLaboratory Ybdkxvt6370-93-76 10:15:00Identifier 63703- 6 Result Time 2018-06-03 10:15:00Unknown Test Item Value Reference Range Comments Unknown (test code = 1920-8) 25 U/L Unknown 13-39 F Ordering Physician UnknownLaboratory Owqldej0077-74-63 10:15:00Identifier 38284- 6 Result Time 2018-06-03 10:15:00Unknown Test Item Value Reference Range Comments Unknown (test code = 6768-6) 153 U/L Unknown 34-104 F Ordering Physician UnknownLaboratory Mytjwqk4697-75-81 10:15:00Identifier 67683- 6 Result Time 2018-06-03 10:15:00Unknown Test Item Value Reference Range Comments Unknown (test code = 1759-0) 0.8 Unknown 1-3 F Ordering Physician UnknownLaboratory Qikmhqp5408-28-99 10:15:00Identifier 26378- 6 Result Time 2018-06-03 10:15:00Unknown Test Item Value Reference Range Comments Unknown (test code = 30490-1) 4.0 g/dL Unknown 3.2-5.2 F Ordering Physician UnknownLaboratory Ijyskhz4300-56-05 10:15:00Identifier 53183- 6 Result Time 2018-06-03 10:15:00Unknown Test Item Value Reference Range Comments Unknown (test code = 1742-6) 13 U/L Unknown 7-52 F Ordering Physician UnknownLaboratory Twdgwpw6280-66-13 10:15:00Identifier 03653- 6 Result Time 2018-06-03 10:15:00Unknown Test Item Value Reference Range Comments Unknown (test code = 2524-7) 0.9 mmol/L Unknown 0.5-2.0 F Ordering Physician Unknown
--- OUTSIDE RECORDS SUMMARY | 2019-01-21 16:48 | XMS REPORT ---
:1930 Author Organization [facility] Care Team Providers Name Role Phone [...] Result Comments Laboratory Studies 2018-06-05 08:13:00 Identifier [id number] Result Time Unknown 2018-06-05 08:13:00 Test Item Value Reference Range Comments Unknown (test code = 2951-2) 136 mmol/L Unknown 135-145 F Ordering Physician UnknownLaboratory Etydmuf8120-80-32 08:13:00Identifier 93264- 6 Result Time 2018-06-05 08:13:00Unknown Test Item Value Reference Range Comments Unknown (test code = 2823-3) 4.0 mmol/L Unknown 3.5-5.0 F Ordering Physician UnknownLaboratory Ecbmnfb0844-64-44 08:13:00Identifier 25267- 6 Result Time 2018-06-05 08:13:00Unknown Test Item Value Reference Range Comments Unknown (test code = 2345-7) 87 mg/dL Unknown 70-100 F Ordering Physician UnknownLaboratory Cnsierd8492-62-95 08:13:00Identifier 59271- 6 Result Time 2018-06-05 08:13:00Unknown Test Item Value Reference Range Comments Unknown (test code = 30224-1) 46.9 Unknown Unknown F Ordering Physician UnknownLaboratory Bduweyr5252-90-87 08:13:00Identifier 74639- 6 Result Time 2018-06-05 08:13:00Unknown Test Item Value Reference Range Comments Unknown (test code = NullTestCode) 56.7 Unknown Unknown F Ordering Physician UnknownLaboratory Flarnpc7306-81-40 08:13:00Identifier 93111- 6 Result Time 2018-06-05 08:13:00Unknown Test Item Value Reference Range Comments Unknown (test code = 2160-0) 1.43 mg/dL Unknown 0.67-1.17 F Ordering Physician UnknownLaboratory Hdgyxdy6688-27-20 08:13:00Identifier 04469- 6 Result Time 2018-06-05 08:13:00Unknown Test Item Value Reference Range Comments Unknown (test code = 2075-0) 104 mmol/L Unknown 101-111 F Ordering Physician UnknownLaboratory Pscneci0864-58-72 08:13:00Identifier 56009- 6 Result Time 2018-06-05 08:13:00Unknown Test Item Value Reference Range Comments Unknown (test code = 2028-9) 24 mmol/L Unknown 22-32 F Ordering Physician UnknownLaboratory Sighpdk3715-25-25 08:13:00Identifier 69393- 6 Result Time 2018-06-05 08:13:00Unknown Test Item Value Reference Range Comments Unknown (test code = 10710-1) 9.0 mg/dL Unknown 8.6-10.3 F Ordering Physician UnknownLaboratory Usxxmbv7846-45-81 08:13:00Identifier 88170- 6 Result Time 2018-06-05 08:13:00Unknown Test Item Value Reference Range Comments Unknown (test code = 3094-0) 24 mg/dL Unknown 6-24 F Ordering Physician UnknownLaboratory Cjzlxxv9291-65-06 08:13:00Identifier 55470- 6 Result Time 2018-06-05 08:13:00Unknown Test Item Value Reference Range Comments Unknown (test code = 3097-3) 16.8 Unknown 8-20 F Ordering Physician UnknownLaboratory Eytatbh2081-72-78 08:13:00Identifier 07120- 6 Result Time 2018-06-05 08:13:00Unknown Test Item Value Reference Range Comments Unknown (test code = 96366-3) 8 mmol/L Unknown 2-11 F Ordering Physician UnknownLaboratory Ybehxcx4635-41-97 08:13:00Identifier 55643- 6 Result Time 2018-06-05 08:13:00Unknown Test Item Value Reference Range Comments Unknown (test code = 85423-8) 27.4 10^3/uL Unknown 3.5-10.8 F Ordering Physician UnknownLaboratory Qlavvgw5783-24-23 08:13:00Identifier 75059- 6 Result Time 2018-06-05 08:13:00Unknown Test Item Value Reference Range Comments Unknown (test code = 788-0) 24 % Unknown 10.5-15 F Ordering Physician UnknownLaboratory Lkfhyhu8308-08-92 08:13:00Identifier 58032- 6 Result Time 2018-06-05 08:13:00Unknown Test Item Value Reference Range Comments Unknown (test code = 789-8) 5.19 10^6 /uL Unknown 4.18-5.48 F Ordering Physician UnknownLaboratory Jjwelwz8664-52-81 08:13:00Identifier 28817- 6 Result Time 2018-06-05 08:13:00Unknown Test Item Value Reference Range Comments Unknown (test code = 777-3) 330 10^3/uL Unknown 150-450 F Ordering Physician UnknownLaboratory Trltgiv8440-88-69 08:13:00Identifier 40811- 6 Result Time 2018-06-05 08:13:00Unknown Test Item Value Reference Range Comments Unknown (test code = 65643-3) 0 Unknown Unknown F Ordering Physician UnknownLaboratory Dmrkrwm1141-56-59 08:13:00Identifier 30201- 6 Result Time 2018-06-05 08:13:00Unknown Test Item Value Reference Range Comments Unknown (test code = 771-6) 0 10^3/ul Unknown Unknown F Ordering Physician UnknownLaboratory Waefgzt5904-08-57 08:13:00Identifier 01688- 6 Result Time 2018-06-05 08:13:00Unknown Test Item Value Reference Range Comments Unknown (test code = 770-8) 84.7 % Unknown Unknown F Ordering Physician UnknownLaboratory Znyphyl8469-47-86 08:13:00Identifier 66124- 6 Result Time 2018-06-05 08:13:00Unknown Test Item Value Reference Range Comments Unknown (test code = 5905-5) 8.6 % Unknown Unknown F Ordering Physician UnknownLaboratory Hbepfbe1290-07-12 08:13:00Identifier 31033- 6 Result Time 2018-06-05 08:13:00Unknown Test Item Value Reference Range Comments Unknown (test code = 30252-6) 8.6 fL Unknown 7.4-10.4 F Ordering Physician UnknownLaboratory Wzxezvn0394-48-79 08:13:00Identifier 12808- 6 Result Time 2018-06-05 08:13:00Unknown Test Item Value Reference Range Comments Unknown (test code = 787-2) 78 fL Unknown 80-94 F Ordering Physician UnknownLaboratory Iwxjdmm1958-75-85 08:13:00Identifier 79919- 6 Result Time 2018-06-05 08:13:00Unknown Test Item Value Reference Range Comments Unknown (test code = 786-4) 31 g/dL Unknown 31-36 F Ordering Physician UnknownLaboratory Udjpeeh8019-24-09 08:13:00Identifier 50928- 6 Result Time 2018-06-05 08:13:00Unknown Test Item Value Reference Range Comments Unknown (test code = 785-6) 24 pg Unknown 27-31 F Ordering Physician UnknownLaboratory Nbfojnm6286-91-48 08:13:00Identifier 38521- 6 Result Time 2018-06-05 08:13:00Unknown Test Item Value Reference Range Comments Unknown (test code = 736-9) 5.4 % Unknown Unknown F Ordering Physician UnknownLaboratory Qxrexls1876-75-48 08:13:00Identifier 92170- 6 Result Time 2018-06-05 08:13:00Unknown Test Item Value Reference Range Comments Unknown (test code = 718-7) 12.3 g/dL Unknown 14.0-18.0 F Ordering Physician UnknownLaboratory Zvdejur7080-51-27 08:13:00Identifier 75214- 6 Result Time 2018-06-05 08:13:00Unknown Test Item Value Reference Range Comments Unknown (test code = 4544-3) 40 % Unknown 36-46 F Ordering Physician UnknownLaboratory Nnjefrz6095-21-21 08:13:00Identifier 70968- 6 Result Time 2018-06-05 08:13:00Unknown Test Item Value Reference Range Comments Unknown (test code = 713-8) 0.8 % Unknown Unknown F Ordering Physician UnknownLaboratory Hlovkux2457-04-71 08:13:00Identifier 09112- 6 Result Time 2018-06-05 08:13:00Unknown Test Item Value Reference Range Comments Unknown (test code = 706-2) 0.5 % Unknown Unknown F Ordering Physician UnknownLaboratory Azppbfg9869-77-61 08:13:00Identifier 19704- 6 Result Time 2018-06-05 08:13:00Unknown Test Item Value Reference Range Comments Unknown (test code = ZZO9241) 23.2 10^3/ul Unknown 1.5-7.7 F Ordering Physician UnknownLaboratory Mmyhklx3015-17-49 08:13:00Identifier 02748- 6 Result Time 2018-06-05 08:13:00Unknown Test Item Value Reference Range Comments Unknown (test code = 742-7) 2.4 10^3/ul Unknown 0-0.8 F Ordering Physician UnknownLaboratory Thbmidr4957-08-43 08:13:00Identifier 58455- 6 Result Time 2018-06-05 08:13:00Unknown Test Item Value Reference Range Comments Unknown (test code = 731-0) 1.5 10^3/ul Unknown 1.0-4.8 F Ordering Physician UnknownLaboratory Ubrhnqa7175-58-46 08:13:00Identifier 14667- 6 Result Time 2018-06-05 08:13:00Unknown Test Item Value Reference Range Comments Unknown (test code = 711-2) 0.2 10^3/ul Unknown 0-0.6 F Ordering Physician UnknownLaboratory Nubezha9641-11-17 08:13:00Identifier 95544- 6 Result Time 2018-06-05 08:13:00Unknown Test Item Value Reference Range Comments Unknown (test code = 704-7) 0.1 10^3/ul Unknown 0-0.2 F Ordering Physician UnknownLaboratory Kcakjpc2698-95-93 06:46:00Identifier 31267- 6 Result Time 2018-06-04 06:46:00Unknown Test Item Value Reference Range Comments Unknown (test code = 70927-2) 0.05 ng/mL Unknown Unknown F Ordering Physician UnknownLaboratory Gqbhaci6985-76-85 06:46:00Identifier 68647- 6 Result Time 2018-06-04 06:46:00Unknown Test Item Value Reference Range Comments Unknown (test code = 2777-1) 2.8 mg/dL Unknown 2.5-5.0 F Ordering Physician UnknownLaboratory Ffcbdhr0835-60-80 06:46:00Identifier 94559- 6 Result Time 2018-06-04 06:46:00Unknown Test Item Value Reference Range Comments Unknown (test code = 78052-7) 2.5 mg/dL Unknown 1.9-2.7 F Ordering Physician UnknownLaboratory Omrqklk5697-42-47 10:48:00Identifier 68647- 6 Result Time 2018-06-03 10:48:00Unknown Test Item Value Reference Range Comments Unknown (test code = NullTestCode) 6.0 Unknown 5-9 F Ordering Physician UnknownLaboratory Eqvkdfj3166-10-12 10:48:00Identifier 64292- 6 Result Time 2018-06-03 10:48:00Unknown Test Item Value Reference Range Comments Unknown (test code = 60442-6) 1.013 Unknown 1.010-1.030 F Ordering Physician UnknownLaboratory Ruoqacn8719-09-48 10:15:00Identifier 12045- 6 Result Time 2018-06-03 10:15:00Unknown Test Item Value Reference Range Comments Unknown (test code = 3016-3) 3.38 mcIU/mL Unknown 0.34-5.60 F Ordering Physician UnknownLaboratory Krjomgu9194-11-40 10:15:00Identifier 39206- 6 Result Time 2018-06-03 10:15:00Unknown Test Item Value Reference Range Comments Unknown (test code = 50034-9) 1.14 Unknown 0.77-1.02 F Ordering Physician UnknownLaboratory Yynfwmt0681-15-77 10:15:00Identifier 35786- 6 Result Time 2018-06-03 10:15:00Unknown Test Item Value Reference Range Comments Unknown (test code = 73528-5) 365 pg/mL Unknown Unknown F Ordering Physician UnknownLaboratory Gdyksmu6077-40-29 10:15:00Identifier 88950- 6 Result Time 2018-06-03 10:15:00Unknown Test Item Value Reference Range Comments Unknown (test code = 2885-2) 8.9 g/dL Unknown 6.4-8.9 F Ordering Physician UnknownLaboratory Mzpmqwo8452-84-43 10:15:00Identifier 63074- 6 Result Time 2018-06-03 10:15:00Unknown Test Item Value Reference Range Comments Unknown (test code = 1975-2) 0.60 mg/dL Unknown 0.2-1.0 F Ordering Physician UnknownLaboratory Afeucei3281-06-53 10:15:00Identifier 81702- 6 Result Time 2018-06-03 10:15:00Unknown Test Item Value Reference Range Comments Unknown (test code = NullTestCode) 4.9 g/dL Unknown 2-4 F Ordering Physician UnknownLaboratory Gcttabd3104-40-09 10:15:00Identifier 24089- 6 Result Time 2018-06-03 10:15:00Unknown Test Item Value Reference Range Comments Unknown (test code = 1988-5) 11.17 mg/L Unknown 0-8.00 F Ordering Physician UnknownLaboratory Uiyonvi2011-79-74 10:15:00Identifier 45567- 6 Result Time 2018-06-03 10:15:00Unknown Test Item Value Reference Range Comments Unknown (test code = 1920-8) 25 U/L Unknown 13-39 F Ordering Physician UnknownLaboratory Zyjoqgi0589-47-49 10:15:00Identifier 79545- 6 Result Time 2018-06-03 10:15:00Unknown Test Item Value Reference Range Comments Unknown (test code = 6768-6) 153 U/L Unknown 34-104 F Ordering Physician UnknownLaboratory Mkwxofs4633-90-34 10:15:00Identifier 82693- 6 Result Time 2018-06-03 10:15:00Unknown Test Item Value Reference Range Comments Unknown (test code = 1759-0) 0.8 Unknown 1-3 F Ordering Physician UnknownLaboratory Fojgpox2395-06-58 10:15:00Identifier 19728- 6 Result Time 2018-06-03 10:15:00Unknown Test Item Value Reference Range Comments Unknown (test code = 27576-3) 4.0 g/dL Unknown 3.2-5.2 F Ordering Physician UnknownLaboratory Nufihzq6955-47-88 10:15:00Identifier 54183- 6 Result Time 2018-06-03 10:15:00Unknown Test Item Value Reference Range Comments Unknown (test code = 1742-6) 13 U/L Unknown 7-52 F Ordering Physician UnknownLaboratory Sespqln3726-06-31 10:15:00Identifier 14814- 6 Result Time 2018-06-03 10:15:00Unknown Test Item Value Reference Range Comments Unknown (test code = 2524-7) 0.9 mmol/L Unknown 0.5-2.0 F Ordering Physician Unknown
--- OUTSIDE RECORDS SUMMARY | 2019-01-21 16:48 | XMS REPORT ---
:1930 Author Organization [facility] Care Team Providers Name Role [...] Result Comments Laboratory Studies 2018-06-05 08:13:00 Identifier [id number] Result Time Unknown 2018-06-05 08:13:00 Test Item Value Reference Range Comments Unknown (test code = 2951-2) 136 mmol/L Unknown 135-145 F Ordering Physician UnknownLaboratory Olmzdrd1069-61-96 08:13:00Identifier [id number]- 6 Result Time 2018-06-05 08:13:00Unknown Test Item Value Reference Range Comments Unknown (test code = 2823-3) 4.0 mmol/L Unknown 3.5-5.0 F Ordering Physician UnknownLaboratory Zpzbpas6383-99-51 08:13:00Identifier 35523- 6 Result Time 2018-06-05 08:13:00Unknown Test Item Value Reference Range Comments Unknown (test code = 2345-7) 87 mg/dL Unknown 70-100 F Ordering Physician UnknownLaboratory Zrnnwcu5991-63-65 08:13:00Identifier 60404- 6 Result Time 2018-06-05 08:13:00Unknown Test Item Value Reference Range Comments Unknown (test code = 67137-5) 46.9 Unknown Unknown F Ordering Physician UnknownLaboratory Ftabuft8184-23-53 08:13:00Identifier 02815- 6 Result Time 2018-06-05 08:13:00Unknown Test Item Value Reference Range Comments Unknown (test code = NullTestCode) 56.7 Unknown Unknown F Ordering Physician UnknownLaboratory Xjpcnlg3620-81-81 08:13:00Identifier 81225- 6 Result Time 2018-06-05 08:13:00Unknown Test Item Value Reference Range Comments Unknown (test code = 2160-0) 1.43 mg/dL Unknown 0.67-1.17 F Ordering Physician UnknownLaboratory Zfneqij8055-46-77 08:13:00Identifier 90564- 6 Result Time 2018-06-05 08:13:00Unknown Test Item Value Reference Range Comments Unknown (test code = 2075-0) 104 mmol/L Unknown 101-111 F Ordering Physician UnknownLaboratory Dcxqczm1666-63-12 08:13:00Identifier 31097- 6 Result Time 2018-06-05 08:13:00Unknown Test Item Value Reference Range Comments Unknown (test code = 2028-9) 24 mmol/L Unknown 22-32 F Ordering Physician UnknownLaboratory Iqsbzaq6041-03-91 08:13:00Identifier 28238- 6 Result Time 2018-06-05 08:13:00Unknown Test Item Value Reference Range Comments Unknown (test code = 84499-4) 9.0 mg/dL Unknown 8.6-10.3 F Ordering Physician UnknownLaboratory Hhheyqn0458-37-49 08:13:00Identifier 02358- 6 Result Time 2018-06-05 08:13:00Unknown Test Item Value Reference Range Comments Unknown (test code = 3094-0) 24 mg/dL Unknown 6-24 F Ordering Physician UnknownLaboratory Iogablc4232-22-18 08:13:00Identifier 31289- 6 Result Time 2018-06-05 08:13:00Unknown Test Item Value Reference Range Comments Unknown (test code = 3097-3) 16.8 Unknown 8-20 F Ordering Physician UnknownLaboratory Dbagufq2400-26-10 08:13:00Identifier 35513- 6 Result Time 2018-06-05 08:13:00Unknown Test Item Value Reference Range Comments Unknown (test code = 35405-5) 8 mmol/L Unknown 2-11 F Ordering Physician UnknownLaboratory Ytuhcgh2282-08-83 08:13:00Identifier 99124- 6 Result Time 2018-06-05 08:13:00Unknown Test Item Value Reference Range Comments Unknown (test code = 93156-8) 27.4 10^3/uL Unknown 3.5-10.8 F Ordering Physician UnknownLaboratory Okfutmg2303-76-31 08:13:00Identifier 09477- 6 Result Time 2018-06-05 08:13:00Unknown Test Item Value Reference Range Comments Unknown (test code = 788-0) 24 % Unknown 10.5-15 F Ordering Physician UnknownLaboratory Zgurgkr3692-46-27 08:13:00Identifier 54390- 6 Result Time 2018-06-05 08:13:00Unknown Test Item Value Reference Range Comments Unknown (test code = 789-8) 5.19 10^6 /uL Unknown 4.18-5.48 F Ordering Physician UnknownLaboratory Lknhoux5542-97-45 08:13:00Identifier 61558- 6 Result Time 2018-06-05 08:13:00Unknown Test Item Value Reference Range Comments Unknown (test code = 777-3) 330 10^3/uL Unknown 150-450 F Ordering Physician UnknownLaboratory Yixwsps2019-34-95 08:13:00Identifier 62135- 6 Result Time 2018-06-05 08:13:00Unknown Test Item Value Reference Range Comments Unknown (test code = 69907-8) 0 Unknown Unknown F Ordering Physician UnknownLaboratory Bolcuxa1845-54-62 08:13:00Identifier 67948- 6 Result Time 2018-06-05 08:13:00Unknown Test Item Value Reference Range Comments Unknown (test code = 771-6) 0 10^3/ul Unknown Unknown F Ordering Physician UnknownLaboratory Gmemkiu8746-02-12 08:13:00Identifier 89020- 6 Result Time 2018-06-05 08:13:00Unknown Test Item Value Reference Range Comments Unknown (test code = 770-8) 84.7 % Unknown Unknown F Ordering Physician UnknownLaboratory Pxeyobk7399-53-31 08:13:00Identifier 63707- 6 Result Time 2018-06-05 08:13:00Unknown Test Item Value Reference Range Comments Unknown (test code = 5905-5) 8.6 % Unknown Unknown F Ordering Physician UnknownLaboratory Kmppioo0240-37-45 08:13:00Identifier 47583- 6 Result Time 2018-06-05 08:13:00Unknown Test Item Value Reference Range Comments Unknown (test code = 42129-1) 8.6 fL Unknown 7.4-10.4 F Ordering Physician UnknownLaboratory Cowmosg1750-16-71 08:13:00Identifier 16157- 6 Result Time 2018-06-05 08:13:00Unknown Test Item Value Reference Range Comments Unknown (test code = 787-2) 78 fL Unknown 80-94 F Ordering Physician UnknownLaboratory Plsrffm4119-24-56 08:13:00Identifier 00579- 6 Result Time 2018-06-05 08:13:00Unknown Test Item Value Reference Range Comments Unknown (test code = 786-4) 31 g/dL Unknown 31-36 F Ordering Physician UnknownLaboratory Uscrsyi4245-18-98 08:13:00Identifier 67001- 6 Result Time 2018-06-05 08:13:00Unknown Test Item Value Reference Range Comments Unknown (test code = 785-6) 24 pg Unknown 27-31 F Ordering Physician UnknownLaboratory Shoocga0916-11-68 08:13:00Identifier 49847- 6 Result Time 2018-06-05 08:13:00Unknown Test Item Value Reference Range Comments Unknown (test code = 736-9) 5.4 % Unknown Unknown F Ordering Physician UnknownLaboratory Wdzwyyp5478-11-26 08:13:00Identifier 31765- 6 Result Time 2018-06-05 08:13:00Unknown Test Item Value Reference Range Comments Unknown (test code = 718-7) 12.3 g/dL Unknown 14.0-18.0 F Ordering Physician UnknownLaboratory Ewxbcyv2017-26-21 08:13:00Identifier 74517- 6 Result Time 2018-06-05 08:13:00Unknown Test Item Value Reference Range Comments Unknown (test code = 4544-3) 40 % Unknown 36-46 F Ordering Physician UnknownLaboratory Haghmfp8527-82-16 08:13:00Identifier 15255- 6 Result Time 2018-06-05 08:13:00Unknown Test Item Value Reference Range Comments Unknown (test code = 713-8) 0.8 % Unknown Unknown F Ordering Physician UnknownLaboratory Vqiywmw6389-07-30 08:13:00Identifier 45091- 6 Result Time 2018-06-05 08:13:00Unknown Test Item Value Reference Range Comments Unknown (test code = 706-2) 0.5 % Unknown Unknown F Ordering Physician UnknownLaboratory Qpcktnw1686-05-49 08:13:00Identifier 09647- 6 Result Time 2018-06-05 08:13:00Unknown Test Item Value Reference Range Comments Unknown (test code = EMV2880) 23.2 10^3/ul Unknown 1.5-7.7 F Ordering Physician UnknownLaboratory Jdozpur8590-37-92 08:13:00Identifier 09544- 6 Result Time 2018-06-05 08:13:00Unknown Test Item Value Reference Range Comments Unknown (test code = 742-7) 2.4 10^3/ul Unknown 0-0.8 F Ordering Physician UnknownLaboratory Fwucxwh0487-47-67 08:13:00Identifier 50799- 6 Result Time 2018-06-05 08:13:00Unknown Test Item Value Reference Range Comments Unknown (test code = 731-0) 1.5 10^3/ul Unknown 1.0-4.8 F Ordering Physician UnknownLaboratory Lvadvoy1265-11-01 08:13:00Identifier 99667- 6 Result Time 2018-06-05 08:13:00Unknown Test Item Value Reference Range Comments Unknown (test code = 711-2) 0.2 10^3/ul Unknown 0-0.6 F Ordering Physician UnknownLaboratory Lkhjjnp8271-80-18 08:13:00Identifier 67638- 6 Result Time 2018-06-05 08:13:00Unknown Test Item Value Reference Range Comments Unknown (test code = 704-7) 0.1 10^3/ul Unknown 0-0.2 F Ordering Physician UnknownLaboratory Eovzhob9044-33-61 06:46:00Identifier 64588- 6 Result Time 2018-06-04 06:46:00Unknown Test Item Value Reference Range Comments Unknown (test code = 97588-0) 0.05 ng/mL Unknown Unknown F Ordering Physician UnknownLaboratory Vbjtxsx3685-83-94 06:46:00Identifier 28520- 6 Result Time 2018-06-04 06:46:00Unknown Test Item Value Reference Range Comments Unknown (test code = 2777-1) 2.8 mg/dL Unknown 2.5-5.0 F Ordering Physician UnknownLaboratory Ivjqrpd3011-57-57 06:46:00Identifier 77452- 6 Result Time 2018-06-04 06:46:00Unknown Test Item Value Reference Range Comments Unknown (test code = 31778-2) 2.5 mg/dL Unknown 1.9-2.7 F Ordering Physician UnknownLaboratory Uulzzxb5755-19-37 10:48:00Identifier 08066- 6 Result Time 2018-06-03 10:48:00Unknown Test Item Value Reference Range Comments Unknown (test code = NullTestCode) 6.0 Unknown 5-9 F Ordering Physician UnknownLaboratory Dsrybbs8897-20-52 10:48:00Identifier 86167- 6 Result Time 2018-06-03 10:48:00Unknown Test Item Value Reference Range Comments Unknown (test code = 51970-5) 1.013 Unknown 1.010-1.030 F Ordering Physician UnknownLaboratory Pxsadah3595-84-45 10:15:00Identifier 49970- 6 Result Time 2018-06-03 10:15:00Unknown Test Item Value Reference Range Comments Unknown (test code = 3016-3) 3.38 mcIU/mL Unknown 0.34-5.60 F Ordering Physician UnknownLaboratory Oiflura2718-55-29 10:15:00Identifier 58408- 6 Result Time 2018-06-03 10:15:00Unknown Test Item Value Reference Range Comments Unknown (test code = 34579-7) 1.14 Unknown 0.77-1.02 F Ordering Physician UnknownLaboratory Cqkpnxn1678-70-87 10:15:00Identifier 08599- 6 Result Time 2018-06-03 10:15:00Unknown Test Item Value Reference Range Comments Unknown (test code = 36836-9) 365 pg/mL Unknown Unknown F Ordering Physician UnknownLaboratory Fnronje8758-91-05 10:15:00Identifier 97506- 6 Result Time 2018-06-03 10:15:00Unknown Test Item Value Reference Range Comments Unknown (test code = 2885-2) 8.9 g/dL Unknown 6.4-8.9 F Ordering Physician UnknownLaboratory Vetqwyl3846-11-26 10:15:00Identifier 81928- 6 Result Time 2018-06-03 10:15:00Unknown Test Item Value Reference Range Comments Unknown (test code = 1975-2) 0.60 mg/dL Unknown 0.2-1.0 F Ordering Physician UnknownLaboratory Nplqxdz1743-05-03 10:15:00Identifier 20341- 6 Result Time 2018-06-03 10:15:00Unknown Test Item Value Reference Range Comments Unknown (test code = NullTestCode) 4.9 g/dL Unknown 2-4 F Ordering Physician UnknownLaboratory Kqkifya6005-50-57 10:15:00Identifier 86263- 6 Result Time 2018-06-03 10:15:00Unknown Test Item Value Reference Range Comments Unknown (test code = 1988-5) 11.17 mg/L Unknown 0-8.00 F Ordering Physician UnknownLaboratory Mygyolm5034-20-01 10:15:00Identifier 54334- 6 Result Time 2018-06-03 10:15:00Unknown Test Item Value Reference Range Comments Unknown (test code = 1920-8) 25 U/L Unknown 13-39 F Ordering Physician UnknownLaboratory Tmvlynb7158-58-71 10:15:00Identifier 92197- 6 Result Time 2018-06-03 10:15:00Unknown Test Item Value Reference Range Comments Unknown (test code = 6768-6) 153 U/L Unknown 34-104 F Ordering Physician UnknownLaboratory Knborls0182-20-15 10:15:00Identifier 14583- 6 Result Time 2018-06-03 10:15:00Unknown Test Item Value Reference Range Comments Unknown (test code = 1759-0) 0.8 Unknown 1-3 F Ordering Physician UnknownLaboratory Xficaiw0744-26-47 10:15:00Identifier 21220- 6 Result Time 2018-06-03 10:15:00Unknown Test Item Value Reference Range Comments Unknown (test code = 88132-1) 4.0 g/dL Unknown 3.2-5.2 F Ordering Physician UnknownLaboratory Vdwduea8927-07-86 10:15:00Identifier 35709- 6 Result Time 2018-06-03 10:15:00Unknown Test Item Value Reference Range Comments Unknown (test code = 1742-6) 13 U/L Unknown 7-52 F Ordering Physician UnknownLaboratory Vovmnmu6952-91-57 10:15:00Identifier 58963- 6 Result Time 2018-06-03 10:15:00Unknown Test Item Value Reference Range Comments Unknown (test code = 2524-7) 0.9 mmol/L Unknown 0.5-2.0 F Ordering Physician Unknown
--- OUTSIDE RECORDS SUMMARY | 2019-01-21 16:48 | XMS REPORT ---
:1930 Author Organization [facility] Care Team Providers Name Role Phone Unavailable [...] Result Comments Laboratory Studies 2018-06-05 08:13:00 Identifier [id number] Result Time Unknown 2018-06-05 08:13:00 Test Item Value Reference Range Comments Unknown (test code = 2951-2) 136 mmol/L Unknown 135-145 F Ordering Physician UnknownLaboratory Mvbicgc3718-67-69 08:13:00Identifier 65178- 6 Result Time 2018-06-05 08:13:00Unknown Test Item Value Reference Range Comments Unknown (test code = 2823-3) 4.0 mmol/L Unknown 3.5-5.0 F Ordering Physician UnknownLaboratory Nqzqesi7471-57-67 08:13:00Identifier 76256- 6 Result Time 2018-06-05 08:13:00Unknown Test Item Value Reference Range Comments Unknown (test code = 2345-7) 87 mg/dL Unknown 70-100 F Ordering Physician UnknownLaboratory Hntfxpl8057-70-41 08:13:00Identifier 83053- 6 Result Time 2018-06-05 08:13:00Unknown Test Item Value Reference Range Comments Unknown (test code = 54203-8) 46.9 Unknown Unknown F Ordering Physician UnknownLaboratory Nfyftzy4383-05-71 08:13:00Identifier 53626- 6 Result Time 2018-06-05 08:13:00Unknown Test Item Value Reference Range Comments Unknown (test code = NullTestCode) 56.7 Unknown Unknown F Ordering Physician UnknownLaboratory Jxnzipj6821-22-01 08:13:00Identifier 36284- 6 Result Time 2018-06-05 08:13:00Unknown Test Item Value Reference Range Comments Unknown (test code = 2160-0) 1.43 mg/dL Unknown 0.67-1.17 F Ordering Physician UnknownLaboratory Nuyophh3473-34-61 08:13:00Identifier 12984- 6 Result Time 2018-06-05 08:13:00Unknown Test Item Value Reference Range Comments Unknown (test code = 2075-0) 104 mmol/L Unknown 101-111 F Ordering Physician UnknownLaboratory Edttswv7832-72-08 08:13:00Identifier 44726- 6 Result Time 2018-06-05 08:13:00Unknown Test Item Value Reference Range Comments Unknown (test code = 2028-9) 24 mmol/L Unknown 22-32 F Ordering Physician UnknownLaboratory Mayzsoj0486-62-88 08:13:00Identifier 42358- 6 Result Time 2018-06-05 08:13:00Unknown Test Item Value Reference Range Comments Unknown (test code = 67226-4) 9.0 mg/dL Unknown 8.6-10.3 F Ordering Physician UnknownLaboratory Xwsazir4228-27-20 08:13:00Identifier 42398- 6 Result Time 2018-06-05 08:13:00Unknown Test Item Value Reference Range Comments Unknown (test code = 3094-0) 24 mg/dL Unknown 6-24 F Ordering Physician UnknownLaboratory Isdpzot6551-20-83 08:13:00Identifier 08053- 6 Result Time 2018-06-05 08:13:00Unknown Test Item Value Reference Range Comments Unknown (test code = 3097-3) 16.8 Unknown 8-20 F Ordering Physician UnknownLaboratory Hwendxu4290-65-25 08:13:00Identifier 57640- 6 Result Time 2018-06-05 08:13:00Unknown Test Item Value Reference Range Comments Unknown (test code = 48180-2) 8 mmol/L Unknown 2-11 F Ordering Physician UnknownLaboratory Brtwohx5051-65-28 08:13:00Identifier 93393- 6 Result Time 2018-06-05 08:13:00Unknown Test Item Value Reference Range Comments Unknown (test code = 15837-7) 27.4 10^3/uL Unknown 3.5-10.8 F Ordering Physician UnknownLaboratory Xzefdlq3052-19-31 08:13:00Identifier 54591- 6 Result Time 2018-06-05 08:13:00Unknown Test Item Value Reference Range Comments Unknown (test code = 788-0) 24 % Unknown 10.5-15 F Ordering Physician UnknownLaboratory Sittwur2092-83-00 08:13:00Identifier 94440- 6 Result Time 2018-06-05 08:13:00Unknown Test Item Value Reference Range Comments Unknown (test code = 789-8) 5.19 10^6 /uL Unknown 4.18-5.48 F Ordering Physician UnknownLaboratory Qyybzxx4350-60-16 08:13:00Identifier 53078- 6 Result Time 2018-06-05 08:13:00Unknown Test Item Value Reference Range Comments Unknown (test code = 777-3) 330 10^3/uL Unknown 150-450 F Ordering Physician UnknownLaboratory Kvmyffz6898-84-90 08:13:00Identifier 57311- 6 Result Time 2018-06-05 08:13:00Unknown Test Item Value Reference Range Comments Unknown (test code = 37613-6) 0 Unknown Unknown F Ordering Physician UnknownLaboratory Ivkglan8276-38-38 08:13:00Identifier 21099- 6 Result Time 2018-06-05 08:13:00Unknown Test Item Value Reference Range Comments Unknown (test code = 771-6) 0 10^3/ul Unknown Unknown F Ordering Physician UnknownLaboratory Gnivoaw0505-90-00 08:13:00Identifier 23435- 6 Result Time 2018-06-05 08:13:00Unknown Test Item Value Reference Range Comments Unknown (test code = 770-8) 84.7 % Unknown Unknown F Ordering Physician UnknownLaboratory Xmtaojk8574-48-72 08:13:00Identifier 68536- 6 Result Time 2018-06-05 08:13:00Unknown Test Item Value Reference Range Comments Unknown (test code = 5905-5) 8.6 % Unknown Unknown F Ordering Physician UnknownLaboratory Rxdyjvg8426-91-70 08:13:00Identifier 68130- 6 Result Time 2018-06-05 08:13:00Unknown Test Item Value Reference Range Comments Unknown (test code = 15499-9) 8.6 fL Unknown 7.4-10.4 F Ordering Physician UnknownLaboratory Yiygbom1604-72-26 08:13:00Identifier 44013- 6 Result Time 2018-06-05 08:13:00Unknown Test Item Value Reference Range Comments Unknown (test code = 787-2) 78 fL Unknown 80-94 F Ordering Physician UnknownLaboratory Gpmdxkj2034-11-96 08:13:00Identifier 15622- 6 Result Time 2018-06-05 08:13:00Unknown Test Item Value Reference Range Comments Unknown (test code = 786-4) 31 g/dL Unknown 31-36 F Ordering Physician UnknownLaboratory Khidqjl8763-22-51 08:13:00Identifier 21172- 6 Result Time 2018-06-05 08:13:00Unknown Test Item Value Reference Range Comments Unknown (test code = 785-6) 24 pg Unknown 27-31 F Ordering Physician UnknownLaboratory Kvvfwnp9152-95-97 08:13:00Identifier 82625- 6 Result Time 2018-06-05 08:13:00Unknown Test Item Value Reference Range Comments Unknown (test code = 736-9) 5.4 % Unknown Unknown F Ordering Physician UnknownLaboratory Pmwmlmt3079-57-38 08:13:00Identifier 04307- 6 Result Time 2018-06-05 08:13:00Unknown Test Item Value Reference Range Comments Unknown (test code = 718-7) 12.3 g/dL Unknown 14.0-18.0 F Ordering Physician UnknownLaboratory Ywdbahi5985-18-91 08:13:00Identifier 76635- 6 Result Time 2018-06-05 08:13:00Unknown Test Item Value Reference Range Comments Unknown (test code = 4544-3) 40 % Unknown 36-46 F Ordering Physician UnknownLaboratory Mmrhcni1001-90-02 08:13:00Identifier 16937- 6 Result Time 2018-06-05 08:13:00Unknown Test Item Value Reference Range Comments Unknown (test code = 713-8) 0.8 % Unknown Unknown F Ordering Physician UnknownLaboratory Wurpfmw3622-81-16 08:13:00Identifier 21372- 6 Result Time 2018-06-05 08:13:00Unknown Test Item Value Reference Range Comments Unknown (test code = 706-2) 0.5 % Unknown Unknown F Ordering Physician UnknownLaboratory Afldxdw2768-91-47 08:13:00Identifier 91454- 6 Result Time 2018-06-05 08:13:00Unknown Test Item Value Reference Range Comments Unknown (test code = NKM4298) 23.2 10^3/ul Unknown 1.5-7.7 F Ordering Physician UnknownLaboratory Rjhgmla4868-42-95 08:13:00Identifier 88161- 6 Result Time 2018-06-05 08:13:00Unknown Test Item Value Reference Range Comments Unknown (test code = 742-7) 2.4 10^3/ul Unknown 0-0.8 F Ordering Physician UnknownLaboratory Slsjxxk2351-89-10 08:13:00Identifier 06621- 6 Result Time 2018-06-05 08:13:00Unknown Test Item Value Reference Range Comments Unknown (test code = 731-0) 1.5 10^3/ul Unknown 1.0-4.8 F Ordering Physician UnknownLaboratory Tljbqua1773-61-01 08:13:00Identifier 23639- 6 Result Time 2018-06-05 08:13:00Unknown Test Item Value Reference Range Comments Unknown (test code = 711-2) 0.2 10^3/ul Unknown 0-0.6 F Ordering Physician UnknownLaboratory Thdabmn6904-10-55 08:13:00Identifier 87291- 6 Result Time 2018-06-05 08:13:00Unknown Test Item Value Reference Range Comments Unknown (test code = 704-7) 0.1 10^3/ul Unknown 0-0.2 F Ordering Physician UnknownLaboratory Qxsdsae2194-87-09 06:46:00Identifier 21720- 6 Result Time 2018-06-04 06:46:00Unknown Test Item Value Reference Range Comments Unknown (test code = 61556-5) 0.05 ng/mL Unknown Unknown F Ordering Physician UnknownLaboratory Ltydpgn4535-03-99 06:46:00Identifier 55345- 6 Result Time 2018-06-04 06:46:00Unknown Test Item Value Reference Range Comments Unknown (test code = 2777-1) 2.8 mg/dL Unknown 2.5-5.0 F Ordering Physician UnknownLaboratory Cxrmlvv8120-51-07 06:46:00Identifier 29354- 6 Result Time 2018-06-04 06:46:00Unknown Test Item Value Reference Range Comments Unknown (test code = 52262-5) 2.5 mg/dL Unknown 1.9-2.7 F Ordering Physician UnknownLaboratory Bwywtib2943-37-34 10:48:00Identifier 66056- 6 Result Time 2018-06-03 10:48:00Unknown Test Item Value Reference Range Comments Unknown (test code = NullTestCode) 6.0 Unknown 5-9 F Ordering Physician UnknownLaboratory Lfjccuk5981-42-17 10:48:00Identifier 48245- 6 Result Time 2018-06-03 10:48:00Unknown Test Item Value Reference Range Comments Unknown (test code = 38704-9) 1.013 Unknown 1.010-1.030 F Ordering Physician UnknownLaboratory Gvyiqhm1213-82-16 10:15:00Identifier 24093- 6 Result Time 2018-06-03 10:15:00Unknown Test Item Value Reference Range Comments Unknown (test code = 3016-3) 3.38 mcIU/mL Unknown 0.34-5.60 F Ordering Physician UnknownLaboratory Dyowegf2329-44-57 10:15:00Identifier 00127- 6 Result Time 2018-06-03 10:15:00Unknown Test Item Value Reference Range Comments Unknown (test code = 44944-5) 1.14 Unknown 0.77-1.02 F Ordering Physician UnknownLaboratory Ubimzpu8618-32-15 10:15:00Identifier 54756- 6 Result Time 2018-06-03 10:15:00Unknown Test Item Value Reference Range Comments Unknown (test code = 95262-3) 365 pg/mL Unknown Unknown F Ordering Physician UnknownLaboratory Huzuggw2961-05-05 10:15:00Identifier 04967- 6 Result Time 2018-06-03 10:15:00Unknown Test Item Value Reference Range Comments Unknown (test code = 2885-2) 8.9 g/dL Unknown 6.4-8.9 F Ordering Physician UnknownLaboratory Azbmlyj6102-43-30 10:15:00Identifier 38889- 6 Result Time 2018-06-03 10:15:00Unknown Test Item Value Reference Range Comments Unknown (test code = 1975-2) 0.60 mg/dL Unknown 0.2-1.0 F Ordering Physician UnknownLaboratory Qvugkll2004-89-72 10:15:00Identifier 22705- 6 Result Time 2018-06-03 10:15:00Unknown Test Item Value Reference Range Comments Unknown (test code = NullTestCode) 4.9 g/dL Unknown 2-4 F Ordering Physician UnknownLaboratory Nawerlo3750-48-49 10:15:00Identifier 47159- 6 Result Time 2018-06-03 10:15:00Unknown Test Item Value Reference Range Comments Unknown (test code = 1988-5) 11.17 mg/L Unknown 0-8.00 F Ordering Physician UnknownLaboratory Hurjoyu6521-51-00 10:15:00Identifier 46722- 6 Result Time 2018-06-03 10:15:00Unknown Test Item Value Reference Range Comments Unknown (test code = 1920-8) 25 U/L Unknown 13-39 F Ordering Physician UnknownLaboratory Rvvwxma2390-81-05 10:15:00Identifier 23415- 6 Result Time 2018-06-03 10:15:00Unknown Test Item Value Reference Range Comments Unknown (test code = 6768-6) 153 U/L Unknown 34-104 F Ordering Physician UnknownLaboratory Nfegpqm5337-15-42 10:15:00Identifier 88730- 6 Result Time 2018-06-03 10:15:00Unknown Test Item Value Reference Range Comments Unknown (test code = 1759-0) 0.8 Unknown 1-3 F Ordering Physician UnknownLaboratory Htthbui0610-57-64 10:15:00Identifier 70379- 6 Result Time 2018-06-03 10:15:00Unknown Test Item Value Reference Range Comments Unknown (test code = 31038-3) 4.0 g/dL Unknown 3.2-5.2 F Ordering Physician UnknownLaboratory Soulhqp2690-53-25 10:15:00Identifier 14355- 6 Result Time 2018-06-03 10:15:00Unknown Test Item Value Reference Range Comments Unknown (test code = 1742-6) 13 U/L Unknown 7-52 F Ordering Physician UnknownLaboratory Dpqgfyc1133-33-16 10:15:00Identifier 75253- 6 Result Time 2018-06-03 10:15:00Unknown Test Item Value Reference Range Comments Unknown (test code = 2524-7) 0.9 mmol/L Unknown 0.5-2.0 F Ordering Physician Unknown
--- OUTSIDE RECORDS SUMMARY | 2019-01-21 16:48 | XMS REPORT | Continuity of Care Document ---
:1930 External Reference #:[id number] Author Name Deidre Cooely DO (transmitted by agent of provider Adelina Flowers) Address [address] [place] [id number] Care Team Providers Name Role Phone Deidre Cooley DO - Hospitalist Care Team Information Software Support Representative Problems Active Problems Provider Date Cellulitis of left lower limb Brandi Riojas M.D. Onset: 10/14/2017 Essential hypertension Brandi Riojas M.D. Onset: 10/14/2017 Gastroesophageal reflux disease YEIMY Black Onset: 10/15/2017 Polycythemia vera (clinical) YEIMY Black Onset: 10/15/2017 Social History Type Date Description Comments Sex Unknown Tobacco Use Start: Unknown End: Former Cigarette Smoker Unknown Smoking Status Reviewed: 11/26/18 Former Cigarette Smoker ETOH Use Denies alcohol use Tobacco Use Start: Unknown End: Patient is a former smoker Unknown Recreational Drug Use Denies Drug Use Exercise Type/Frequency Exercises regularly Allergies, Adverse Reactions, Alerts Description No Known Drug Allergies Medications Active Medications SIG Qnty Indications Ordering Provider Date Topiramate take one tab 60tabs R51 Kenroy Glasgow, 11/19/2018 25mg Tablets twice a day N.P. Atorvastatin Calcium by mouth every 30tabs I65.1 Deidre Cooley, 2018 40mg night DO Tablets Clopidogrel Bisulfate take one tab 90tabs I65.1 Deidre Cooley, 06/06/2018 75mg daily DO Tablets Verapamil HCL ER 1/2 tab by 45tabs I65.1 Deidre Cooley, 06/29/2017 120mg mouth once a DO Tablets ER day. Multivitamin Adult 1 by mouth Unknown Tablets every day Magnesium 1 by mouth Unknown 400mg Tablets every day Acetaminophen 2 by mouth Unknown 500mg Tablets twice a day prn Hydroxyurea 1 by mouth 90caps Deidre Cooley, 500mg Capsules every other day DO Pantoprazole Sodium 1 by mouth 90tabs Rodger Casey MD 40mg every day Tablets DR Calcium 600/Vitamin D3 1 by mouth Unknown every day [id number] Tablets Calcium Magnesium And Unknown Zinc With D3 History Medications Topiramate 1 by mouth 30tabs R51 Austin Rivero, 10/24/2018 - 25mg daily M.D. 11/19/2018 Tablets Aspirin 81 1 by mouth Deidre Cooley, 08/06/2018 - 81mg every day(2-3 10/23/[address] times a week) Immunizations CPT Code Status Date Vaccine Lot # [id number] Given 11/26/2018 Pneumonia Vaccine [id number] Vital Signs Date Vital Result Comment 11/26/2018 9:06am Height 71 inches 5'11" Weight 171.38 lb Heart Rate 57 /min BP Systolic 142 mmHg BP Diastolic 80 mmHg Body Temperature 97.4 F O2 % BldC Oximetry 98 % BMI (Body Mass Index) 23.9 kg/m2 11/19/2018 8:51am Height 71 inches 5'11" Weight 170.00 lb Heart Rate 90 /min BP Systolic 134 mmHg BP Diastolic 82 mmHg BMI (Body Mass Index) 23.7 kg/m2 Results Description No Information Available Procedures Date Code Description Status 06/17/2018 29643 EKG Tracing & Interpretation Completed 06/04/2018 00909 ECHO Transthorasic Realtime 2D W Doppler & Color Flow Hosp Completed 06/03/2018 72948 EKG Tracing & Interpretation Completed 06/03/2018 66584 EKG Tracing & Interpretation Completed Medical Devices Description No Information Available Encounters Type Date Location Provider Dx Diagnosis Office Visit 11/19/2018 [facility] Kenroy Glasgow, R51 Headache 9:00a Services Of Freezing Room Worker N.P. 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 I10 Essential (primary) hypertension I44.7 Left bundle-branch block, unspecified Office Visit 06/06/2018 2:00p DO Not Use Care Deidre I65.1 Occlusion and Connections Senner, DO stenosis of Clinic-Freezing Room Worker basilar artery I35.0 Nonrheumatic aortic (valve) stenosis I10 Essential (primary) hypertension J18.9 Pneumonia, unspecified organism Office Visit 06/05/2018 [facility] [place] A40.3 Sepsis due to 10:56a Assoc,cha Velarde MD Streptococcus Hospitalists pneumoniae R79.89 Other specified abnormal findings of blood chemistry D75.1 Secondary polycythemia I10 Essential (primary) hypertension K21.9 Gastro-esophageal reflux disease without esophagitis E87.6 Hypokalemia E83.42 Hypomagnesemia Office Visit 06/04/2018 10:55a [facility] [place] J18.9 Pneumonia, Assoc,cha Velarde MD unspecified Hospitalists organism I10 Essential (primary) hypertension Office Visit 06/03/2018 10:55a [facility] [place] J18.9 Pneumonia, Assoc,cha Velarde MD unspecified Hospitalists organism R79.89 Other specified abnormal findings of blood chemistry D75.1 Secondary polycythemia I10 Essential (primary) hypertension K21.9 Gastro-esophageal reflux disease without esophagitis E87.6 Hypokalemia E83.42 Hypomagnesemia Assessments Date Code Description Provider 11/26/2018 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 11/19/2018 D75.1 Secondary polycythemia Kenroymichelle Glasgow, N.P. 11/19/2018 G90.09 Other idiopathic peripheral autonomic Kenroymichelle Glasgow, N.P. neuropathy 11/19/2018 R42 Dizziness and giddiness Kenroymichelle Glasgow, N.P. 10/24/2018 R51 Headache Austin Rivero M.D. 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 10/24/2018 D75.1 Secondary polycythemia Austin Rivero M.D. 10/24/2018 G90.09 Other idiopathic peripheral autonomic Austin Rivero M.D. 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 Dennis Blanco, DO [facility] 06/17/2018 I10 Essential (primary) hypertension Dennis Blanco, DO [facility] 06/17/2018 I44.7 Left bundle-branch block, unspecified Dennis Blanco, DO [facility] 06/06/2018 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 Deidre Cooley, DO 06/06/2018 I35.0 Nonrheumatic aortic (valve) stenosis Deidre Cooley, DO 06/06/2018 I10 Essential (primary) hypertension Deidre Cooley, DO 06/06/2018 J18.9 Pneumonia, unspecified organism Deidre Cooley, DO 06/05/2018 A40.3 Sepsis due to Streptococcus pneumoniae [place] Velarde MD 06/05/2018 R79.89 Other specified abnormal findings of blood [place] Velarde MD chemistry 06/05/2018 D75.1 Secondary polycythemia [place] Velarde MD 06/05/2018 I10 Essential (primary) hypertension [place] Velarde MD 06/05/2018 K21.9 Gastro-esophageal reflux disease without [place] Velarde MD esophagitis 06/05/2018 E87.6 Hypokalemia [place] Velarde MD 06/05/2018 E83.42 Hypomagnesemia [place] Velarde MD 06/04/2018 R94.31 Abnormal electrocardiogram [ECG] [EKG] Bora Graves M.D. 06/04/2018 J18.9 Pneumonia, unspecified organism [place] Velarde MD 06/04/2018 I10 Essential (primary) hypertension [place] Velarde MD 06/03/2018 J18.9 Pneumonia, unspecified organism [place] Velarde MD 06/03/2018 R94.31 Abnormal electrocardiogram [ECG] [EKG] Nurse Visit IC 06/03/2018 R79.89 Other specified abnormal findings of blood [place] Velarde MD chemistry 06/03/2018 I35.0 Nonrheumatic aortic (valve) stenosis Bora Graves M.D. 06/03/2018 D75.1 Secondary polycythemia [place] Velarde MD 06/03/2018 R68.83 Chills (without fever) Bora Graves M.D. 06/03/2018 I10 Essential (primary) hypertension [place] Velarde MD 06/03/2018 R53.1 Weakness Bora Graves M.D. 06/03/2018 K21.9 Gastro-esophageal reflux disease without [place] Velarde MD esophagitis 06/03/2018 I44.7 Left bundle-branch block, unspecified Bora Graves M.D. 06/03/2018 E87.6 Hypokalemia [place] Velarde MD 06/03/2018 E83.42 Hypomagnesemia [place] Velarde MD Plan of Treatment Future Appointment(s):12/19/2018 11:00 am - Kenroy Glasgow N.P. at [facility]11/26/2018 - Deidre Cooley, DOI65.1 Occlusion and stenosis of basilar arteryComments:I will reach out to Dr. Maxwell's office to get the angiogram [id number] Secondary polycythemiaComments:following with Dr. Vega, continue [id number] Encounter for immunization Functional Status Description No Information Available Mental Status Description No Information Available Referrals Refer to Dr Reason for Referral Status Appt Date Austin Rivero M.D. Received Complete 11/03/2018 [address] [place] [place] [address] [phone] Vince Hidalgo, PH.D. Sent 07/02/[address] [place] [address] [phone] Vince Hidalgo, PH.D. Sent [address] [place] [address] [phone]
--- OUTSIDE RECORDS SUMMARY | 2019-01-21 16:48 | XMS REPORT | Continuity of Care Document ---
:1930 External Reference #:[id number] Author Name Kenroy Glasgow N.P. (transmitted by agent of provider Aracelis Madison) Address [address] [facility], [place] [address] Care Team Providers Name Role Phone Deidre Cooley DO - Hospitalist Care Team Information Paste Thinner Problems Active Problems Provider Date Cellulitis of left lower limb Brandi Riojas M.D. Onset: 10/14/2017 Essential hypertension Brandi Riojas M.D. Onset: 10/14/2017 Gastroesophageal reflux disease YEIMY Black Onset: 10/15/2017 Polycythemia vera (clinical) YEIMY Black Onset: 10/15/2017 Social History Type Date Description Comments Sex Unknown Tobacco Use Start: Unknown End: Former Cigarette Smoker Unknown Smoking Status Reviewed: 12/19/18 Former Cigarette Smoker ETOH Use Denies alcohol [...] Calcium by mouth every 30tabs I65.1 Deidre Cooley DO 2018 40mg night Tablets Clopidogrel Bisulfate take one tab 90tabs I65.1 Deidre Cooley DO 2018 daily 75mg Tablets Verapamil HCL ER 1/2 tab by 45tabs I65.1 Deidre Cooley DO 06/29/2017 120mg mouth once a Tablets ER day. Multivitamin Adult 1 by mouth Unknown every day Tablets Magnesium 1 by mouth Unknown 400mg Tablets every day Hydroxyurea 1 by mouth 90caps Deidre Cooley, DO 500mg every other day Capsules Pantoprazole Sodium 1 by mouth 90tabs Rodger Casey MD 40mg every day Tablets DR Calcium 600/Vitamin D3 1 by mouth Unknown every day [id number] Tablets Calcium Magnesium And Unknown Zinc With D3 History Medications Topiramate 1 by mouth 30tabs R51 Austin Rivero, 10/24/2018 - 25mg daily M.DMaureen 11/19/2018 Tablets Aspirin 81 1 by mouth Deidre oColey DO 08/06/2018 - 81mg every day(2-3 10/23/[address] times a week) Immunizations CPT Code Status Date Vaccine Lot # [id number] Given 11/26/2018 Pneumonia Vaccine [id number] Vital Signs Date Vital Result Comment 12/19/2018 11:03am Height 71 inches 5'11" Weight 170.00 lb Heart Rate 78 /min BP Systolic 132 mmHg BP Diastolic 62 mmHg BMI (Body Mass Index) 23.7 kg/m2 11/26/2018 9:06am Height 71 inches 5'11" Weight 171.38 lb Heart Rate 57 /min BP Systolic 142 mmHg BP Diastolic 80 mmHg Body Temperature 97.4 F O2 % BldC Oximetry 98 % BMI (Body Mass Index) 23.9 kg/m2 Results Description No Information Available Procedures Description No Information Available Medical Devices Description No Information Available Encounters Type Date Location Provider Dx Diagnosis Office Visit 11/19/2018 [facility] Kenroy Glasgow, R51 Headache 9:00a 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 Internal eDidre Cooley, I65.1 Occlusion and Medicine - Suite DO stenosis of R basilar artery I10 Essential (primary) hypertension I35.0 Nonrheumatic aortic (valve) stenosis R51 Headache D45 Polycythemia vera Assessments Date Code Description Provider 12/19/2018 G90.09 Other idiopathic peripheral autonomic Kenroy Glasgow, N.P. neuropathy 12/19/2018 R42 Dizziness and giddiness Kenroy Glasgow, N.P. 12/19/2018 R51 Headache Kenroy Glasgow, N.P. 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 11/19/2018 D75.1 Secondary polycythemia Kenroy Glasgow, N.P. 11/19/2018 G90.09 Other idiopathic peripheral autonomic Kenroy Glasgow, N.P. neuropathy 11/19/2018 R42 Dizziness and giddiness Kenroy Glasgow, N.P. 10/24/2018 R51 Headache Austin Rivero M.D. 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 10/24/2018 D75.1 Secondary polycythemia Austin Rivero M.D. 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 at [facility]12/19/2018 - Kenroy Glasgow N.P.G90.09 Other idiopathic peripheral autonomic neuropathyNew Therapy:Physical TherapyFollow up: follow before you leave your [id number] Dizziness and giddinessRecommendations: Make follow up with Dr Nava51 Headache Functional Status Description No Information Available Mental Status Description No Information Available Referrals Refer to Reason for Referral Status Appt Date Austin Rivero M.D. Received Complete 11/03/2018 [address] [place] [address] [place] [address] [phone] Vince Hidalgo, PH.D. Sent 07/02/2018 [facility] [place] [address] [phone]
--- OUTSIDE RECORDS SUMMARY | 2019-01-21 16:48 | XMS REPORT ---
:1930 Author Organization [facility] Care Team Providers Name Role Phone Unavailable [...] Result Comments Laboratory Studies 2018-06-05 08:13:00 Identifier [id number] Result Time Unknown 2018-06-05 08:13:00 Test Item Value Reference Range Comments Unknown (test code = 2951-2) 136 mmol/L Unknown 135-145 F Ordering Physician UnknownLaboratory Pfaolrz1585-08-15 08:13:00Identifier [id number]- 6 Result Time 2018-06-05 08:13:00Unknown Test Item Value Reference Range Comments Unknown (test code = 2823-3) 4.0 mmol/L Unknown 3.5-5.0 F Ordering Physician UnknownLaboratory Brrbcst8860-61-95 08:13:00Identifier 75570- 6 Result Time 2018-06-05 08:13:00Unknown Test Item Value Reference Range Comments Unknown (test code = 2345-7) 87 mg/dL Unknown 70-100 F Ordering Physician UnknownLaboratory Nvqafaf3832-51-56 08:13:00Identifier 53246- 6 Result Time 2018-06-05 08:13:00Unknown Test Item Value Reference Range Comments Unknown (test code = 44695-9) 46.9 Unknown Unknown F Ordering Physician UnknownLaboratory Erizore6840-45-90 08:13:00Identifier 62324- 6 Result Time 2018-06-05 08:13:00Unknown Test Item Value Reference Range Comments Unknown (test code = NullTestCode) 56.7 Unknown Unknown F Ordering Physician UnknownLaboratory Bekwoyz8491-77-54 08:13:00Identifier 56646- 6 Result Time 2018-06-05 08:13:00Unknown Test Item Value Reference Range Comments Unknown (test code = 2160-0) 1.43 mg/dL Unknown 0.67-1.17 F Ordering Physician UnknownLaboratory Hvcjerm1439-45-84 08:13:00Identifier 59678- 6 Result Time 2018-06-05 08:13:00Unknown Test Item Value Reference Range Comments Unknown (test code = 2075-0) 104 mmol/L Unknown 101-111 F Ordering Physician UnknownLaboratory Ziktnoa3540-85-97 08:13:00Identifier 32309- 6 Result Time 2018-06-05 08:13:00Unknown Test Item Value Reference Range Comments Unknown (test code = 2028-9) 24 mmol/L Unknown 22-32 F Ordering Physician UnknownLaboratory Flyinge2365-91-95 08:13:00Identifier 98934- 6 Result Time 2018-06-05 08:13:00Unknown Test Item Value Reference Range Comments Unknown (test code = 03705-5) 9.0 mg/dL Unknown 8.6-10.3 F Ordering Physician UnknownLaboratory Rgxqwjv9446-08-16 08:13:00Identifier 91780- 6 Result Time 2018-06-05 08:13:00Unknown Test Item Value Reference Range Comments Unknown (test code = 3094-0) 24 mg/dL Unknown 6-24 F Ordering Physician UnknownLaboratory Zpniego3922-78-34 08:13:00Identifier 12423- 6 Result Time 2018-06-05 08:13:00Unknown Test Item Value Reference Range Comments Unknown (test code = 3097-3) 16.8 Unknown 8-20 F Ordering Physician UnknownLaboratory Qfiyiso9625-16-29 08:13:00Identifier 84265- 6 Result Time 2018-06-05 08:13:00Unknown Test Item Value Reference Range Comments Unknown (test code = 16853-1) 8 mmol/L Unknown 2-11 F Ordering Physician UnknownLaboratory Nqzrxyu3751-73-74 08:13:00Identifier 35406- 6 Result Time 2018-06-05 08:13:00Unknown Test Item Value Reference Range Comments Unknown (test code = 98771-0) 27.4 10^3/uL Unknown 3.5-10.8 F Ordering Physician UnknownLaboratory Brbgxdz2605-39-29 08:13:00Identifier 33993- 6 Result Time 2018-06-05 08:13:00Unknown Test Item Value Reference Range Comments Unknown (test code = 788-0) 24 % Unknown 10.5-15 F Ordering Physician UnknownLaboratory Acinrwe0633-55-51 08:13:00Identifier 55176- 6 Result Time 2018-06-05 08:13:00Unknown Test Item Value Reference Range Comments Unknown (test code = 789-8) 5.19 10^6 /uL Unknown 4.18-5.48 F Ordering Physician UnknownLaboratory Gnghjft3893-06-74 08:13:00Identifier 78372- 6 Result Time 2018-06-05 08:13:00Unknown Test Item Value Reference Range Comments Unknown (test code = 777-3) 330 10^3/uL Unknown 150-450 F Ordering Physician UnknownLaboratory Ljqvgjm1124-36-63 08:13:00Identifier 06534- 6 Result Time 2018-06-05 08:13:00Unknown Test Item Value Reference Range Comments Unknown (test code = 93289-1) 0 Unknown Unknown F Ordering Physician UnknownLaboratory Zylduyx6832-48-86 08:13:00Identifier 96336- 6 Result Time 2018-06-05 08:13:00Unknown Test Item Value Reference Range Comments Unknown (test code = 771-6) 0 10^3/ul Unknown Unknown F Ordering Physician UnknownLaboratory Stdrnzz8033-49-27 08:13:00Identifier 00822- 6 Result Time 2018-06-05 08:13:00Unknown Test Item Value Reference Range Comments Unknown (test code = 770-8) 84.7 % Unknown Unknown F Ordering Physician UnknownLaboratory Zxwjblk5337-47-30 08:13:00Identifier 39982- 6 Result Time 2018-06-05 08:13:00Unknown Test Item Value Reference Range Comments Unknown (test code = 5905-5) 8.6 % Unknown Unknown F Ordering Physician UnknownLaboratory Xyriqqx2371-04-26 08:13:00Identifier 62289- 6 Result Time 2018-06-05 08:13:00Unknown Test Item Value Reference Range Comments Unknown (test code = 40915-2) 8.6 fL Unknown 7.4-10.4 F Ordering Physician UnknownLaboratory Mszrhks8770-90-62 08:13:00Identifier 11817- 6 Result Time 2018-06-05 08:13:00Unknown Test Item Value Reference Range Comments Unknown (test code = 787-2) 78 fL Unknown 80-94 F Ordering Physician UnknownLaboratory Miujvth6938-67-95 08:13:00Identifier 56158- 6 Result Time 2018-06-05 08:13:00Unknown Test Item Value Reference Range Comments Unknown (test code = 786-4) 31 g/dL Unknown 31-36 F Ordering Physician UnknownLaboratory Dwgjnan3957-10-01 08:13:00Identifier 42014- 6 Result Time 2018-06-05 08:13:00Unknown Test Item Value Reference Range Comments Unknown (test code = 785-6) 24 pg Unknown 27-31 F Ordering Physician UnknownLaboratory Tetdlmk1730-46-70 08:13:00Identifier 47942- 6 Result Time 2018-06-05 08:13:00Unknown Test Item Value Reference Range Comments Unknown (test code = 736-9) 5.4 % Unknown Unknown F Ordering Physician UnknownLaboratory Qnctquv2037-45-02 08:13:00Identifier 99897- 6 Result Time 2018-06-05 08:13:00Unknown Test Item Value Reference Range Comments Unknown (test code = 718-7) 12.3 g/dL Unknown 14.0-18.0 F Ordering Physician UnknownLaboratory Kedlnfy8005-82-60 08:13:00Identifier 28209- 6 Result Time 2018-06-05 08:13:00Unknown Test Item Value Reference Range Comments Unknown (test code = 4544-3) 40 % Unknown 36-46 F Ordering Physician UnknownLaboratory Mqkvwwj5912-36-96 08:13:00Identifier 72790- 6 Result Time 2018-06-05 08:13:00Unknown Test Item Value Reference Range Comments Unknown (test code = 713-8) 0.8 % Unknown Unknown F Ordering Physician UnknownLaboratory Oepnouo2690-87-57 08:13:00Identifier 75802- 6 Result Time 2018-06-05 08:13:00Unknown Test Item Value Reference Range Comments Unknown (test code = 706-2) 0.5 % Unknown Unknown F Ordering Physician UnknownLaboratory Yykxonj7226-57-30 08:13:00Identifier 20781- 6 Result Time 2018-06-05 08:13:00Unknown Test Item Value Reference Range Comments Unknown (test code = ADA7082) 23.2 10^3/ul Unknown 1.5-7.7 F Ordering Physician UnknownLaboratory Gxvhtzl1150-15-98 08:13:00Identifier 27102- 6 Result Time 2018-06-05 08:13:00Unknown Test Item Value Reference Range Comments Unknown (test code = 742-7) 2.4 10^3/ul Unknown 0-0.8 F Ordering Physician UnknownLaboratory Ndwlynn3490-43-55 08:13:00Identifier 29972- 6 Result Time 2018-06-05 08:13:00Unknown Test Item Value Reference Range Comments Unknown (test code = 731-0) 1.5 10^3/ul Unknown 1.0-4.8 F Ordering Physician UnknownLaboratory Ybgzmes1648-96-89 08:13:00Identifier 59423- 6 Result Time 2018-06-05 08:13:00Unknown Test Item Value Reference Range Comments Unknown (test code = 711-2) 0.2 10^3/ul Unknown 0-0.6 F Ordering Physician UnknownLaboratory Qcoymgk3706-53-85 08:13:00Identifier 84554- 6 Result Time 2018-06-05 08:13:00Unknown Test Item Value Reference Range Comments Unknown (test code = 704-7) 0.1 10^3/ul Unknown 0-0.2 F Ordering Physician UnknownLaboratory Yxixvxt5407-59-01 06:46:00Identifier 63415- 6 Result Time 2018-06-04 06:46:00Unknown Test Item Value Reference Range Comments Unknown (test code = 08569-9) 0.05 ng/mL Unknown Unknown F Ordering Physician UnknownLaboratory Vxhpjfu7565-15-26 06:46:00Identifier 71397- 6 Result Time 2018-06-04 06:46:00Unknown Test Item Value Reference Range Comments Unknown (test code = 2777-1) 2.8 mg/dL Unknown 2.5-5.0 F Ordering Physician UnknownLaboratory Uahvgmd9991-35-16 06:46:00Identifier 73321- 6 Result Time 2018-06-04 06:46:00Unknown Test Item Value Reference Range Comments Unknown (test code = 80372-9) 2.5 mg/dL Unknown 1.9-2.7 F Ordering Physician UnknownLaboratory Xvbrkub3164-07-22 10:48:00Identifier 79965- 6 Result Time 2018-06-03 10:48:00Unknown Test Item Value Reference Range Comments Unknown (test code = NullTestCode) 6.0 Unknown 5-9 F Ordering Physician UnknownLaboratory Dpicdxx6845-42-98 10:48:00Identifier 86657- 6 Result Time 2018-06-03 10:48:00Unknown Test Item Value Reference Range Comments Unknown (test code = 52861-1) 1.013 Unknown 1.010-1.030 F Ordering Physician UnknownLaboratory Etpgttx2601-37-95 10:15:00Identifier 90923- 6 Result Time 2018-06-03 10:15:00Unknown Test Item Value Reference Range Comments Unknown (test code = 3016-3) 3.38 mcIU/mL Unknown 0.34-5.60 F Ordering Physician UnknownLaboratory Shnqzdp6931-60-62 10:15:00Identifier 90211- 6 Result Time 2018-06-03 10:15:00Unknown Test Item Value Reference Range Comments Unknown (test code = 87486-4) 1.14 Unknown 0.77-1.02 F Ordering Physician UnknownLaboratory Sricipk8680-13-68 10:15:00Identifier 02547- 6 Result Time 2018-06-03 10:15:00Unknown Test Item Value Reference Range Comments Unknown (test code = 78099-3) 365 pg/mL Unknown Unknown F Ordering Physician UnknownLaboratory Nzfvihw0602-66-15 10:15:00Identifier 71775- 6 Result Time 2018-06-03 10:15:00Unknown Test Item Value Reference Range Comments Unknown (test code = 2885-2) 8.9 g/dL Unknown 6.4-8.9 F Ordering Physician UnknownLaboratory Faaznia5883-50-19 10:15:00Identifier 81863- 6 Result Time 2018-06-03 10:15:00Unknown Test Item Value Reference Range Comments Unknown (test code = 1975-2) 0.60 mg/dL Unknown 0.2-1.0 F Ordering Physician UnknownLaboratory Dyozskd5567-21-86 10:15:00Identifier 36137- 6 Result Time 2018-06-03 10:15:00Unknown Test Item Value Reference Range Comments Unknown (test code = NullTestCode) 4.9 g/dL Unknown 2-4 F Ordering Physician UnknownLaboratory Tjdfxva6012-40-97 10:15:00Identifier 74962- 6 Result Time 2018-06-03 10:15:00Unknown Test Item Value Reference Range Comments Unknown (test code = 1988-5) 11.17 mg/L Unknown 0-8.00 F Ordering Physician UnknownLaboratory Scxgehr9245-46-20 10:15:00Identifier 61945- 6 Result Time 2018-06-03 10:15:00Unknown Test Item Value Reference Range Comments Unknown (test code = 1920-8) 25 U/L Unknown 13-39 F Ordering Physician UnknownLaboratory Rktznyr0016-13-34 10:15:00Identifier 97953- 6 Result Time 2018-06-03 10:15:00Unknown Test Item Value Reference Range Comments Unknown (test code = 6768-6) 153 U/L Unknown 34-104 F Ordering Physician UnknownLaboratory Rimfnmz7818-57-58 10:15:00Identifier 01162- 6 Result Time 2018-06-03 10:15:00Unknown Test Item Value Reference Range Comments Unknown (test code = 1759-0) 0.8 Unknown 1-3 F Ordering Physician UnknownLaboratory Jbmxrqt7591-73-73 10:15:00Identifier 25321- 6 Result Time 2018-06-03 10:15:00Unknown Test Item Value Reference Range Comments Unknown (test code = 06354-0) 4.0 g/dL Unknown 3.2-5.2 F Ordering Physician UnknownLaboratory Kreyzpo0753-34-52 10:15:00Identifier 31975- 6 Result Time 2018-06-03 10:15:00Unknown Test Item Value Reference Range Comments Unknown (test code = 1742-6) 13 U/L Unknown 7-52 F Ordering Physician UnknownLaboratory Rgitjtp4978-32-57 10:15:00Identifier 73271- 6 Result Time 2018-06-03 10:15:00Unknown Test Item Value Reference Range Comments Unknown (test code = 2524-7) 0.9 mmol/L Unknown 0.5-2.0 F Ordering Physician Unknown
--- OUTSIDE RECORDS SUMMARY | 2019-01-21 16:48 | XMS REPORT ---
:1930 Author Organization [facility] Care Team Providers Name Role Phone [...] Result Comments Laboratory Studies 2018-06-05 08:13:00 Identifier [id number] Result Time Unknown 2018-06-05 08:13:00 Test Item Value Reference Range Comments Unknown (test code = 2951-2) 136 mmol/L Unknown 135-145 F Ordering Physician UnknownLaboratory Kkqexsd8986-76-10 08:13:00Identifier 91323- 6 Result Time 2018-06-05 08:13:00Unknown Test Item Value Reference Range Comments Unknown (test code = 2823-3) 4.0 mmol/L Unknown 3.5-5.0 F Ordering Physician UnknownLaboratory Txgydae7665-67-07 08:13:00Identifier 36308- 6 Result Time 2018-06-05 08:13:00Unknown Test Item Value Reference Range Comments Unknown (test code = 2345-7) 87 mg/dL Unknown 70-100 F Ordering Physician UnknownLaboratory Powyest4313-99-64 08:13:00Identifier 90916- 6 Result Time 2018-06-05 08:13:00Unknown Test Item Value Reference Range Comments Unknown (test code = 90590-3) 46.9 Unknown Unknown F Ordering Physician UnknownLaboratory Uhbcieh3670-82-30 08:13:00Identifier 00342- 6 Result Time 2018-06-05 08:13:00Unknown Test Item Value Reference Range Comments Unknown (test code = NullTestCode) 56.7 Unknown Unknown F Ordering Physician UnknownLaboratory Ybrcdof0815-91-79 08:13:00Identifier 90494- 6 Result Time 2018-06-05 08:13:00Unknown Test Item Value Reference Range Comments Unknown (test code = 2160-0) 1.43 mg/dL Unknown 0.67-1.17 F Ordering Physician UnknownLaboratory Kgbzwvw4072-32-15 08:13:00Identifier 75877- 6 Result Time 2018-06-05 08:13:00Unknown Test Item Value Reference Range Comments Unknown (test code = 2075-0) 104 mmol/L Unknown 101-111 F Ordering Physician UnknownLaboratory Bhmeamy9861-76-51 08:13:00Identifier 56600- 6 Result Time 2018-06-05 08:13:00Unknown Test Item Value Reference Range Comments Unknown (test code = 2028-9) 24 mmol/L Unknown 22-32 F Ordering Physician UnknownLaboratory Ntvstha7484-58-67 08:13:00Identifier 93115- 6 Result Time 2018-06-05 08:13:00Unknown Test Item Value Reference Range Comments Unknown (test code = 28295-3) 9.0 mg/dL Unknown 8.6-10.3 F Ordering Physician UnknownLaboratory Kxwjevc3249-55-32 08:13:00Identifier 71109- 6 Result Time 2018-06-05 08:13:00Unknown Test Item Value Reference Range Comments Unknown (test code = 3094-0) 24 mg/dL Unknown 6-24 F Ordering Physician UnknownLaboratory Arrsoar2155-93-41 08:13:00Identifier 96763- 6 Result Time 2018-06-05 08:13:00Unknown Test Item Value Reference Range Comments Unknown (test code = 3097-3) 16.8 Unknown 8-20 F Ordering Physician UnknownLaboratory Kfncwbg3352-80-39 08:13:00Identifier 98443- 6 Result Time 2018-06-05 08:13:00Unknown Test Item Value Reference Range Comments Unknown (test code = 51569-2) 8 mmol/L Unknown 2-11 F Ordering Physician UnknownLaboratory Pxitcff8271-43-20 08:13:00Identifier 16967- 6 Result Time 2018-06-05 08:13:00Unknown Test Item Value Reference Range Comments Unknown (test code = 05050-9) 27.4 10^3/uL Unknown 3.5-10.8 F Ordering Physician UnknownLaboratory Stfojkb9034-73-01 08:13:00Identifier 04386- 6 Result Time 2018-06-05 08:13:00Unknown Test Item Value Reference Range Comments Unknown (test code = 788-0) 24 % Unknown 10.5-15 F Ordering Physician UnknownLaboratory Tjqgreb5074-96-16 08:13:00Identifier 49462- 6 Result Time 2018-06-05 08:13:00Unknown Test Item Value Reference Range Comments Unknown (test code = 789-8) 5.19 10^6 /uL Unknown 4.18-5.48 F Ordering Physician UnknownLaboratory Wopcuzl4358-92-55 08:13:00Identifier 90831- 6 Result Time 2018-06-05 08:13:00Unknown Test Item Value Reference Range Comments Unknown (test code = 777-3) 330 10^3/uL Unknown 150-450 F Ordering Physician UnknownLaboratory Fypjoeu6389-35-63 08:13:00Identifier 04929- 6 Result Time 2018-06-05 08:13:00Unknown Test Item Value Reference Range Comments Unknown (test code = 09182-7) 0 Unknown Unknown F Ordering Physician UnknownLaboratory Kyedsuu5884-50-10 08:13:00Identifier 07813- 6 Result Time 2018-06-05 08:13:00Unknown Test Item Value Reference Range Comments Unknown (test code = 771-6) 0 10^3/ul Unknown Unknown F Ordering Physician UnknownLaboratory Fljqutd5940-71-38 08:13:00Identifier 15306- 6 Result Time 2018-06-05 08:13:00Unknown Test Item Value Reference Range Comments Unknown (test code = 770-8) 84.7 % Unknown Unknown F Ordering Physician UnknownLaboratory Noxrejr1110-74-96 08:13:00Identifier 03391- 6 Result Time 2018-06-05 08:13:00Unknown Test Item Value Reference Range Comments Unknown (test code = 5905-5) 8.6 % Unknown Unknown F Ordering Physician UnknownLaboratory Vuekrsb3443-40-09 08:13:00Identifier 05466- 6 Result Time 2018-06-05 08:13:00Unknown Test Item Value Reference Range Comments Unknown (test code = 33418-8) 8.6 fL Unknown 7.4-10.4 F Ordering Physician UnknownLaboratory Ahkmbcb1521-68-53 08:13:00Identifier 11143- 6 Result Time 2018-06-05 08:13:00Unknown Test Item Value Reference Range Comments Unknown (test code = 787-2) 78 fL Unknown 80-94 F Ordering Physician UnknownLaboratory Rsjgjtz4939-99-27 08:13:00Identifier 00672- 6 Result Time 2018-06-05 08:13:00Unknown Test Item Value Reference Range Comments Unknown (test code = 786-4) 31 g/dL Unknown 31-36 F Ordering Physician UnknownLaboratory Hpijpgk5072-14-44 08:13:00Identifier 72359- 6 Result Time 2018-06-05 08:13:00Unknown Test Item Value Reference Range Comments Unknown (test code = 785-6) 24 pg Unknown 27-31 F Ordering Physician UnknownLaboratory Njgnrcl6971-50-62 08:13:00Identifier 32696- 6 Result Time 2018-06-05 08:13:00Unknown Test Item Value Reference Range Comments Unknown (test code = 736-9) 5.4 % Unknown Unknown F Ordering Physician UnknownLaboratory Lvuhndm5900-72-40 08:13:00Identifier 34962- 6 Result Time 2018-06-05 08:13:00Unknown Test Item Value Reference Range Comments Unknown (test code = 718-7) 12.3 g/dL Unknown 14.0-18.0 F Ordering Physician UnknownLaboratory Jainsla6521-83-36 08:13:00Identifier 61433- 6 Result Time 2018-06-05 08:13:00Unknown Test Item Value Reference Range Comments Unknown (test code = 4544-3) 40 % Unknown 36-46 F Ordering Physician UnknownLaboratory Nqypiwo3463-20-28 08:13:00Identifier 17254- 6 Result Time 2018-06-05 08:13:00Unknown Test Item Value Reference Range Comments Unknown (test code = 713-8) 0.8 % Unknown Unknown F Ordering Physician UnknownLaboratory Qnxsjcy3380-37-61 08:13:00Identifier 55502- 6 Result Time 2018-06-05 08:13:00Unknown Test Item Value Reference Range Comments Unknown (test code = 706-2) 0.5 % Unknown Unknown F Ordering Physician UnknownLaboratory Fehiguf1275-32-12 08:13:00Identifier 01112- 6 Result Time 2018-06-05 08:13:00Unknown Test Item Value Reference Range Comments Unknown (test code = HAQ9887) 23.2 10^3/ul Unknown 1.5-7.7 F Ordering Physician UnknownLaboratory Vfapldw8893-35-53 08:13:00Identifier 91617- 6 Result Time 2018-06-05 08:13:00Unknown Test Item Value Reference Range Comments Unknown (test code = 742-7) 2.4 10^3/ul Unknown 0-0.8 F Ordering Physician UnknownLaboratory Ndfdeif5863-70-92 08:13:00Identifier 85945- 6 Result Time 2018-06-05 08:13:00Unknown Test Item Value Reference Range Comments Unknown (test code = 731-0) 1.5 10^3/ul Unknown 1.0-4.8 F Ordering Physician UnknownLaboratory Mtwgqbt9055-93-33 08:13:00Identifier 44188- 6 Result Time 2018-06-05 08:13:00Unknown Test Item Value Reference Range Comments Unknown (test code = 711-2) 0.2 10^3/ul Unknown 0-0.6 F Ordering Physician UnknownLaboratory Reskwyl4576-98-65 08:13:00Identifier 04041- 6 Result Time 2018-06-05 08:13:00Unknown Test Item Value Reference Range Comments Unknown (test code = 704-7) 0.1 10^3/ul Unknown 0-0.2 F Ordering Physician UnknownLaboratory Xjlfgza8298-93-21 06:46:00Identifier 19736- 6 Result Time 2018-06-04 06:46:00Unknown Test Item Value Reference Range Comments Unknown (test code = 88462-0) 0.05 ng/mL Unknown Unknown F Ordering Physician UnknownLaboratory Kkatlzf2465-45-17 06:46:00Identifier 03310- 6 Result Time 2018-06-04 06:46:00Unknown Test Item Value Reference Range Comments Unknown (test code = 2777-1) 2.8 mg/dL Unknown 2.5-5.0 F Ordering Physician UnknownLaboratory Ucneegc8987-66-01 06:46:00Identifier 86820- 6 Result Time 2018-06-04 06:46:00Unknown Test Item Value Reference Range Comments Unknown (test code = 86892-8) 2.5 mg/dL Unknown 1.9-2.7 F Ordering Physician UnknownLaboratory Bjwxspo4552-03-11 10:48:00Identifier 78712- 6 Result Time 2018-06-03 10:48:00Unknown Test Item Value Reference Range Comments Unknown (test code = NullTestCode) 6.0 Unknown 5-9 F Ordering Physician UnknownLaboratory Vkyjxfr7109-47-50 10:48:00Identifier 46142- 6 Result Time 2018-06-03 10:48:00Unknown Test Item Value Reference Range Comments Unknown (test code = 42454-7) 1.013 Unknown 1.010-1.030 F Ordering Physician UnknownLaboratory Fdtopel9657-89-51 10:15:00Identifier 62592- 6 Result Time 2018-06-03 10:15:00Unknown Test Item Value Reference Range Comments Unknown (test code = 3016-3) 3.38 mcIU/mL Unknown 0.34-5.60 F Ordering Physician UnknownLaboratory Bkhhqht1456-38-38 10:15:00Identifier 91594- 6 Result Time 2018-06-03 10:15:00Unknown Test Item Value Reference Range Comments Unknown (test code = 85494-4) 1.14 Unknown 0.77-1.02 F Ordering Physician UnknownLaboratory Hfkotxl1552-32-64 10:15:00Identifier 57265- 6 Result Time 2018-06-03 10:15:00Unknown Test Item Value Reference Range Comments Unknown (test code = 00266-6) 365 pg/mL Unknown Unknown F Ordering Physician UnknownLaboratory Tudhimc7028-64-46 10:15:00Identifier 68531- 6 Result Time 2018-06-03 10:15:00Unknown Test Item Value Reference Range Comments Unknown (test code = 2885-2) 8.9 g/dL Unknown 6.4-8.9 F Ordering Physician UnknownLaboratory Rzcxdwk7979-09-86 10:15:00Identifier 08909- 6 Result Time 2018-06-03 10:15:00Unknown Test Item Value Reference Range Comments Unknown (test code = 1975-2) 0.60 mg/dL Unknown 0.2-1.0 F Ordering Physician UnknownLaboratory Zauvjtj9698-16-20 10:15:00Identifier 94379- 6 Result Time 2018-06-03 10:15:00Unknown Test Item Value Reference Range Comments Unknown (test code = NullTestCode) 4.9 g/dL Unknown 2-4 F Ordering Physician UnknownLaboratory Xurkkck1773-41-05 10:15:00Identifier 13655- 6 Result Time 2018-06-03 10:15:00Unknown Test Item Value Reference Range Comments Unknown (test code = 1988-5) 11.17 mg/L Unknown 0-8.00 F Ordering Physician UnknownLaboratory Zxpdund5732-91-96 10:15:00Identifier 89056- 6 Result Time 2018-06-03 10:15:00Unknown Test Item Value Reference Range Comments Unknown (test code = 1920-8) 25 U/L Unknown 13-39 F Ordering Physician UnknownLaboratory Nirkgav7257-83-04 10:15:00Identifier 16462- 6 Result Time 2018-06-03 10:15:00Unknown Test Item Value Reference Range Comments Unknown (test code = 6768-6) 153 U/L Unknown 34-104 F Ordering Physician UnknownLaboratory Owcffji5818-41-40 10:15:00Identifier 37464- 6 Result Time 2018-06-03 10:15:00Unknown Test Item Value Reference Range Comments Unknown (test code = 1759-0) 0.8 Unknown 1-3 F Ordering Physician UnknownLaboratory Netbxkh2576-78-28 10:15:00Identifier 01282- 6 Result Time 2018-06-03 10:15:00Unknown Test Item Value Reference Range Comments Unknown (test code = 98468-2) 4.0 g/dL Unknown 3.2-5.2 F Ordering Physician UnknownLaboratory Suvarjq5690-11-54 10:15:00Identifier 61542- 6 Result Time 2018-06-03 10:15:00Unknown Test Item Value Reference Range Comments Unknown (test code = 1742-6) 13 U/L Unknown 7-52 F Ordering Physician UnknownLaboratory Ncibthp7442-31-93 10:15:00Identifier 99234- 6 Result Time 2018-06-03 10:15:00Unknown Test Item Value Reference Range Comments Unknown (test code = 2524-7) 0.9 mmol/L Unknown 0.5-2.0 F Ordering Physician Unknown
--- OUTSIDE RECORDS SUMMARY | 2019-01-21 16:48 | XMS REPORT ---
:1930 Author Organization [facility] Care Team Providers Name Role Phone Unavailable [...] Result Comments Laboratory Studies 2018-06-05 08:13:00 Identifier [id number] Result Time Unknown 2018-06-05 08:13:00 Test Item Value Reference Range Comments Unknown (test code = 2951-2) 136 mmol/L Unknown 135-145 F Ordering Physician UnknownLaboratory Ihnelmh9082-18-49 08:13:00Identifier 73440- 6 Result Time 2018-06-05 08:13:00Unknown Test Item Value Reference Range Comments Unknown (test code = 2823-3) 4.0 mmol/L Unknown 3.5-5.0 F Ordering Physician UnknownLaboratory Hzmrund1403-73-61 08:13:00Identifier 00569- 6 Result Time 2018-06-05 08:13:00Unknown Test Item Value Reference Range Comments Unknown (test code = 2345-7) 87 mg/dL Unknown 70-100 F Ordering Physician UnknownLaboratory Raivkjw8335-93-06 08:13:00Identifier 92399- 6 Result Time 2018-06-05 08:13:00Unknown Test Item Value Reference Range Comments Unknown (test code = 96477-0) 46.9 Unknown Unknown F Ordering Physician UnknownLaboratory Lxyckdw8829-88-17 08:13:00Identifier 55760- 6 Result Time 2018-06-05 08:13:00Unknown Test Item Value Reference Range Comments Unknown (test code = NullTestCode) 56.7 Unknown Unknown F Ordering Physician UnknownLaboratory Tsscykp0568-26-06 08:13:00Identifier 68558- 6 Result Time 2018-06-05 08:13:00Unknown Test Item Value Reference Range Comments Unknown (test code = 2160-0) 1.43 mg/dL Unknown 0.67-1.17 F Ordering Physician UnknownLaboratory Pkmswrt4503-91-61 08:13:00Identifier 38356- 6 Result Time 2018-06-05 08:13:00Unknown Test Item Value Reference Range Comments Unknown (test code = 2075-0) 104 mmol/L Unknown 101-111 F Ordering Physician UnknownLaboratory Rcxuyjv8123-69-17 08:13:00Identifier 41173- 6 Result Time 2018-06-05 08:13:00Unknown Test Item Value Reference Range Comments Unknown (test code = 2028-9) 24 mmol/L Unknown 22-32 F Ordering Physician UnknownLaboratory Ncoubtt7369-27-88 08:13:00Identifier 00328- 6 Result Time 2018-06-05 08:13:00Unknown Test Item Value Reference Range Comments Unknown (test code = 97189-0) 9.0 mg/dL Unknown 8.6-10.3 F Ordering Physician UnknownLaboratory Huhgjyd9567-78-96 08:13:00Identifier 99089- 6 Result Time 2018-06-05 08:13:00Unknown Test Item Value Reference Range Comments Unknown (test code = 3094-0) 24 mg/dL Unknown 6-24 F Ordering Physician UnknownLaboratory Rglazvp6820-44-38 08:13:00Identifier 04105- 6 Result Time 2018-06-05 08:13:00Unknown Test Item Value Reference Range Comments Unknown (test code = 3097-3) 16.8 Unknown 8-20 F Ordering Physician UnknownLaboratory Ugidbzh2768-74-39 08:13:00Identifier 19916- 6 Result Time 2018-06-05 08:13:00Unknown Test Item Value Reference Range Comments Unknown (test code = 30894-9) 8 mmol/L Unknown 2-11 F Ordering Physician UnknownLaboratory Oriebrb7817-35-39 08:13:00Identifier 93083- 6 Result Time 2018-06-05 08:13:00Unknown Test Item Value Reference Range Comments Unknown (test code = 59194-8) 27.4 10^3/uL Unknown 3.5-10.8 F Ordering Physician UnknownLaboratory Sfljncx6349-82-52 08:13:00Identifier 66460- 6 Result Time 2018-06-05 08:13:00Unknown Test Item Value Reference Range Comments Unknown (test code = 788-0) 24 % Unknown 10.5-15 F Ordering Physician UnknownLaboratory Duziiqq6494-78-25 08:13:00Identifier 63152- 6 Result Time 2018-06-05 08:13:00Unknown Test Item Value Reference Range Comments Unknown (test code = 789-8) 5.19 10^6 /uL Unknown 4.18-5.48 F Ordering Physician UnknownLaboratory Bhptpby0060-65-69 08:13:00Identifier 91671- 6 Result Time 2018-06-05 08:13:00Unknown Test Item Value Reference Range Comments Unknown (test code = 777-3) 330 10^3/uL Unknown 150-450 F Ordering Physician UnknownLaboratory Rcmqskp7428-34-10 08:13:00Identifier 66069- 6 Result Time 2018-06-05 08:13:00Unknown Test Item Value Reference Range Comments Unknown (test code = 29522-5) 0 Unknown Unknown F Ordering Physician UnknownLaboratory Qweqtdy1504-25-23 08:13:00Identifier 90908- 6 Result Time 2018-06-05 08:13:00Unknown Test Item Value Reference Range Comments Unknown (test code = 771-6) 0 10^3/ul Unknown Unknown F Ordering Physician UnknownLaboratory Dktozvv8069-96-09 08:13:00Identifier 31403- 6 Result Time 2018-06-05 08:13:00Unknown Test Item Value Reference Range Comments Unknown (test code = 770-8) 84.7 % Unknown Unknown F Ordering Physician UnknownLaboratory Gzmrtdj5843-53-14 08:13:00Identifier 61907- 6 Result Time 2018-06-05 08:13:00Unknown Test Item Value Reference Range Comments Unknown (test code = 5905-5) 8.6 % Unknown Unknown F Ordering Physician UnknownLaboratory Npuzyke4277-96-07 08:13:00Identifier 35732- 6 Result Time 2018-06-05 08:13:00Unknown Test Item Value Reference Range Comments Unknown (test code = 22428-7) 8.6 fL Unknown 7.4-10.4 F Ordering Physician UnknownLaboratory Vrruvkz8889-83-68 08:13:00Identifier 19437- 6 Result Time 2018-06-05 08:13:00Unknown Test Item Value Reference Range Comments Unknown (test code = 787-2) 78 fL Unknown 80-94 F Ordering Physician UnknownLaboratory Erpvmgy7027-57-03 08:13:00Identifier 13362- 6 Result Time 2018-06-05 08:13:00Unknown Test Item Value Reference Range Comments Unknown (test code = 786-4) 31 g/dL Unknown 31-36 F Ordering Physician UnknownLaboratory Azxzayh4067-74-56 08:13:00Identifier 87527- 6 Result Time 2018-06-05 08:13:00Unknown Test Item Value Reference Range Comments Unknown (test code = 785-6) 24 pg Unknown 27-31 F Ordering Physician UnknownLaboratory Fonucjt0400-16-42 08:13:00Identifier 11925- 6 Result Time 2018-06-05 08:13:00Unknown Test Item Value Reference Range Comments Unknown (test code = 736-9) 5.4 % Unknown Unknown F Ordering Physician UnknownLaboratory Xrszscl1914-31-36 08:13:00Identifier 01969- 6 Result Time 2018-06-05 08:13:00Unknown Test Item Value Reference Range Comments Unknown (test code = 718-7) 12.3 g/dL Unknown 14.0-18.0 F Ordering Physician UnknownLaboratory Jqpjrfx3318-50-38 08:13:00Identifier 82160- 6 Result Time 2018-06-05 08:13:00Unknown Test Item Value Reference Range Comments Unknown (test code = 4544-3) 40 % Unknown 36-46 F Ordering Physician UnknownLaboratory Zeuywiw7357-98-52 08:13:00Identifier 60056- 6 Result Time 2018-06-05 08:13:00Unknown Test Item Value Reference Range Comments Unknown (test code = 713-8) 0.8 % Unknown Unknown F Ordering Physician UnknownLaboratory Xibivvv4526-54-53 08:13:00Identifier 26695- 6 Result Time 2018-06-05 08:13:00Unknown Test Item Value Reference Range Comments Unknown (test code = 706-2) 0.5 % Unknown Unknown F Ordering Physician UnknownLaboratory Zoyxfdc7510-10-60 08:13:00Identifier 82877- 6 Result Time 2018-06-05 08:13:00Unknown Test Item Value Reference Range Comments Unknown (test code = CMB8364) 23.2 10^3/ul Unknown 1.5-7.7 F Ordering Physician UnknownLaboratory Hvqjnhj2616-30-26 08:13:00Identifier 62031- 6 Result Time 2018-06-05 08:13:00Unknown Test Item Value Reference Range Comments Unknown (test code = 742-7) 2.4 10^3/ul Unknown 0-0.8 F Ordering Physician UnknownLaboratory Dxfurmj9299-86-38 08:13:00Identifier 88434- 6 Result Time 2018-06-05 08:13:00Unknown Test Item Value Reference Range Comments Unknown (test code = 731-0) 1.5 10^3/ul Unknown 1.0-4.8 F Ordering Physician UnknownLaboratory Mfywasu1877-46-13 08:13:00Identifier 20244- 6 Result Time 2018-06-05 08:13:00Unknown Test Item Value Reference Range Comments Unknown (test code = 711-2) 0.2 10^3/ul Unknown 0-0.6 F Ordering Physician UnknownLaboratory Qlodfqc1465-41-61 08:13:00Identifier 85534- 6 Result Time 2018-06-05 08:13:00Unknown Test Item Value Reference Range Comments Unknown (test code = 704-7) 0.1 10^3/ul Unknown 0-0.2 F Ordering Physician UnknownLaboratory Irlzyko2464-57-71 06:46:00Identifier 06138- 6 Result Time 2018-06-04 06:46:00Unknown Test Item Value Reference Range Comments Unknown (test code = 22450-6) 0.05 ng/mL Unknown Unknown F Ordering Physician UnknownLaboratory Qifzveg1139-41-02 06:46:00Identifier 16212- 6 Result Time 2018-06-04 06:46:00Unknown Test Item Value Reference Range Comments Unknown (test code = 2777-1) 2.8 mg/dL Unknown 2.5-5.0 F Ordering Physician UnknownLaboratory Harbyfa0155-84-18 06:46:00Identifier 78120- 6 Result Time 2018-06-04 06:46:00Unknown Test Item Value Reference Range Comments Unknown (test code = 37294-5) 2.5 mg/dL Unknown 1.9-2.7 F Ordering Physician UnknownLaboratory Omuzhqo1839-75-31 10:48:00Identifier 65656- 6 Result Time 2018-06-03 10:48:00Unknown Test Item Value Reference Range Comments Unknown (test code = NullTestCode) 6.0 Unknown 5-9 F Ordering Physician UnknownLaboratory Anwwhtf9676-65-90 10:48:00Identifier 38889- 6 Result Time 2018-06-03 10:48:00Unknown Test Item Value Reference Range Comments Unknown (test code = 32810-9) 1.013 Unknown 1.010-1.030 F Ordering Physician UnknownLaboratory Fteiyhh3608-42-85 10:15:00Identifier 36689- 6 Result Time 2018-06-03 10:15:00Unknown Test Item Value Reference Range Comments Unknown (test code = 3016-3) 3.38 mcIU/mL Unknown 0.34-5.60 F Ordering Physician UnknownLaboratory Joljxvy9064-21-85 10:15:00Identifier 66269- 6 Result Time 2018-06-03 10:15:00Unknown Test Item Value Reference Range Comments Unknown (test code = 05783-8) 1.14 Unknown 0.77-1.02 F Ordering Physician UnknownLaboratory Agjflvi6140-34-01 10:15:00Identifier 46802- 6 Result Time 2018-06-03 10:15:00Unknown Test Item Value Reference Range Comments Unknown (test code = 08402-8) 365 pg/mL Unknown Unknown F Ordering Physician UnknownLaboratory Iuquqpa1693-54-56 10:15:00Identifier 16883- 6 Result Time 2018-06-03 10:15:00Unknown Test Item Value Reference Range Comments Unknown (test code = 2885-2) 8.9 g/dL Unknown 6.4-8.9 F Ordering Physician UnknownLaboratory Hvqsxkc2736-84-66 10:15:00Identifier 84602- 6 Result Time 2018-06-03 10:15:00Unknown Test Item Value Reference Range Comments Unknown (test code = 1975-2) 0.60 mg/dL Unknown 0.2-1.0 F Ordering Physician UnknownLaboratory Eetiinr2412-56-70 10:15:00Identifier 97590- 6 Result Time 2018-06-03 10:15:00Unknown Test Item Value Reference Range Comments Unknown (test code = NullTestCode) 4.9 g/dL Unknown 2-4 F Ordering Physician UnknownLaboratory Cmvywyc9515-66-71 10:15:00Identifier 49442- 6 Result Time 2018-06-03 10:15:00Unknown Test Item Value Reference Range Comments Unknown (test code = 1988-5) 11.17 mg/L Unknown 0-8.00 F Ordering Physician UnknownLaboratory Uceniey6487-12-15 10:15:00Identifier 35172- 6 Result Time 2018-06-03 10:15:00Unknown Test Item Value Reference Range Comments Unknown (test code = 1920-8) 25 U/L Unknown 13-39 F Ordering Physician UnknownLaboratory Yjlftfe2653-38-69 10:15:00Identifier 52075- 6 Result Time 2018-06-03 10:15:00Unknown Test Item Value Reference Range Comments Unknown (test code = 6768-6) 153 U/L Unknown 34-104 F Ordering Physician UnknownLaboratory Hvilhjh4140-78-44 10:15:00Identifier 73883- 6 Result Time 2018-06-03 10:15:00Unknown Test Item Value Reference Range Comments Unknown (test code = 1759-0) 0.8 Unknown 1-3 F Ordering Physician UnknownLaboratory Mutwujd1865-75-11 10:15:00Identifier 94277- 6 Result Time 2018-06-03 10:15:00Unknown Test Item Value Reference Range Comments Unknown (test code = 00184-2) 4.0 g/dL Unknown 3.2-5.2 F Ordering Physician UnknownLaboratory Iyqubyd3436-16-53 10:15:00Identifier 92562- 6 Result Time 2018-06-03 10:15:00Unknown Test Item Value Reference Range Comments Unknown (test code = 1742-6) 13 U/L Unknown 7-52 F Ordering Physician UnknownLaboratory Ydixlkr5473-88-43 10:15:00Identifier 84446- 6 Result Time 2018-06-03 10:15:00Unknown Test Item Value Reference Range Comments Unknown (test code = 2524-7) 0.9 mmol/L Unknown 0.5-2.0 F Ordering Physician Unknown
--- OUTSIDE RECORDS SUMMARY | 2019-01-21 16:48 | XMS REPORT ---
:1930 Author Organization [facility] Care Team Providers Name Role Phone [...] Result Comments Laboratory Studies 2018-06-05 08:13:00 Identifier [id number] Result Time Unknown 2018-06-05 08:13:00 Test Item Value Reference Range Comments Unknown (test code = 2951-2) 136 mmol/L Unknown 135-145 F Ordering Physician UnknownLaboratory Wwteyrf2861-12-54 08:13:00Identifier 54364- 6 Result Time 2018-06-05 08:13:00Unknown Test Item Value Reference Range Comments Unknown (test code = 2823-3) 4.0 mmol/L Unknown 3.5-5.0 F Ordering Physician UnknownLaboratory Ckwivbj8922-60-33 08:13:00Identifier 99511- 6 Result Time 2018-06-05 08:13:00Unknown Test Item Value Reference Range Comments Unknown (test code = 2345-7) 87 mg/dL Unknown 70-100 F Ordering Physician UnknownLaboratory Xyqhumk9510-94-28 08:13:00Identifier 62781- 6 Result Time 2018-06-05 08:13:00Unknown Test Item Value Reference Range Comments Unknown (test code = 04143-9) 46.9 Unknown Unknown F Ordering Physician UnknownLaboratory Xygzngn8790-65-12 08:13:00Identifier 92202- 6 Result Time 2018-06-05 08:13:00Unknown Test Item Value Reference Range Comments Unknown (test code = NullTestCode) 56.7 Unknown Unknown F Ordering Physician UnknownLaboratory Weuqkwr3567-20-66 08:13:00Identifier 79607- 6 Result Time 2018-06-05 08:13:00Unknown Test Item Value Reference Range Comments Unknown (test code = 2160-0) 1.43 mg/dL Unknown 0.67-1.17 F Ordering Physician UnknownLaboratory Rikqhue0663-38-32 08:13:00Identifier 96829- 6 Result Time 2018-06-05 08:13:00Unknown Test Item Value Reference Range Comments Unknown (test code = 2075-0) 104 mmol/L Unknown 101-111 F Ordering Physician UnknownLaboratory Vwrgrgg9848-45-07 08:13:00Identifier 79554- 6 Result Time 2018-06-05 08:13:00Unknown Test Item Value Reference Range Comments Unknown (test code = 2028-9) 24 mmol/L Unknown 22-32 F Ordering Physician UnknownLaboratory Guxixuw9959-60-85 08:13:00Identifier 90400- 6 Result Time 2018-06-05 08:13:00Unknown Test Item Value Reference Range Comments Unknown (test code = 88613-3) 9.0 mg/dL Unknown 8.6-10.3 F Ordering Physician UnknownLaboratory Jkvqczu5179-72-63 08:13:00Identifier 56781- 6 Result Time 2018-06-05 08:13:00Unknown Test Item Value Reference Range Comments Unknown (test code = 3094-0) 24 mg/dL Unknown 6-24 F Ordering Physician UnknownLaboratory Ngydchi1734-41-18 08:13:00Identifier 02427- 6 Result Time 2018-06-05 08:13:00Unknown Test Item Value Reference Range Comments Unknown (test code = 3097-3) 16.8 Unknown 8-20 F Ordering Physician UnknownLaboratory Gmsymao8939-62-77 08:13:00Identifier 22353- 6 Result Time 2018-06-05 08:13:00Unknown Test Item Value Reference Range Comments Unknown (test code = 70575-6) 8 mmol/L Unknown 2-11 F Ordering Physician UnknownLaboratory Akbecsi5607-60-85 08:13:00Identifier 07847- 6 Result Time 2018-06-05 08:13:00Unknown Test Item Value Reference Range Comments Unknown (test code = 34875-7) 27.4 10^3/uL Unknown 3.5-10.8 F Ordering Physician UnknownLaboratory Yjqrwan3416-73-63 08:13:00Identifier 27459- 6 Result Time 2018-06-05 08:13:00Unknown Test Item Value Reference Range Comments Unknown (test code = 788-0) 24 % Unknown 10.5-15 F Ordering Physician UnknownLaboratory Trldivw3460-77-15 08:13:00Identifier 56045- 6 Result Time 2018-06-05 08:13:00Unknown Test Item Value Reference Range Comments Unknown (test code = 789-8) 5.19 10^6 /uL Unknown 4.18-5.48 F Ordering Physician UnknownLaboratory Avuuwag3543-21-10 08:13:00Identifier 65989- 6 Result Time 2018-06-05 08:13:00Unknown Test Item Value Reference Range Comments Unknown (test code = 777-3) 330 10^3/uL Unknown 150-450 F Ordering Physician UnknownLaboratory Xdmspzq7836-72-56 08:13:00Identifier 52520- 6 Result Time 2018-06-05 08:13:00Unknown Test Item Value Reference Range Comments Unknown (test code = 84607-2) 0 Unknown Unknown F Ordering Physician UnknownLaboratory Etdwdko1389-19-23 08:13:00Identifier 92420- 6 Result Time 2018-06-05 08:13:00Unknown Test Item Value Reference Range Comments Unknown (test code = 771-6) 0 10^3/ul Unknown Unknown F Ordering Physician UnknownLaboratory Ongagsz0675-77-43 08:13:00Identifier 48649- 6 Result Time 2018-06-05 08:13:00Unknown Test Item Value Reference Range Comments Unknown (test code = 770-8) 84.7 % Unknown Unknown F Ordering Physician UnknownLaboratory Gogysey1483-89-70 08:13:00Identifier 53366- 6 Result Time 2018-06-05 08:13:00Unknown Test Item Value Reference Range Comments Unknown (test code = 5905-5) 8.6 % Unknown Unknown F Ordering Physician UnknownLaboratory Rscsgzv8143-39-73 08:13:00Identifier 59396- 6 Result Time 2018-06-05 08:13:00Unknown Test Item Value Reference Range Comments Unknown (test code = 58343-3) 8.6 fL Unknown 7.4-10.4 F Ordering Physician UnknownLaboratory Bzkjkhz2645-57-83 08:13:00Identifier 91245- 6 Result Time 2018-06-05 08:13:00Unknown Test Item Value Reference Range Comments Unknown (test code = 787-2) 78 fL Unknown 80-94 F Ordering Physician UnknownLaboratory Nyicgbm5810-70-84 08:13:00Identifier 96334- 6 Result Time 2018-06-05 08:13:00Unknown Test Item Value Reference Range Comments Unknown (test code = 786-4) 31 g/dL Unknown 31-36 F Ordering Physician UnknownLaboratory Itpidfo1982-06-20 08:13:00Identifier 35484- 6 Result Time 2018-06-05 08:13:00Unknown Test Item Value Reference Range Comments Unknown (test code = 785-6) 24 pg Unknown 27-31 F Ordering Physician UnknownLaboratory Tjaohcv5591-13-57 08:13:00Identifier 71286- 6 Result Time 2018-06-05 08:13:00Unknown Test Item Value Reference Range Comments Unknown (test code = 736-9) 5.4 % Unknown Unknown F Ordering Physician UnknownLaboratory Zoiklsp2170-47-76 08:13:00Identifier 27460- 6 Result Time 2018-06-05 08:13:00Unknown Test Item Value Reference Range Comments Unknown (test code = 718-7) 12.3 g/dL Unknown 14.0-18.0 F Ordering Physician UnknownLaboratory Wcjdgeq5703-26-74 08:13:00Identifier 92428- 6 Result Time 2018-06-05 08:13:00Unknown Test Item Value Reference Range Comments Unknown (test code = 4544-3) 40 % Unknown 36-46 F Ordering Physician UnknownLaboratory Rlaxfnj9156-52-51 08:13:00Identifier 24002- 6 Result Time 2018-06-05 08:13:00Unknown Test Item Value Reference Range Comments Unknown (test code = 713-8) 0.8 % Unknown Unknown F Ordering Physician UnknownLaboratory Ouszach4938-06-49 08:13:00Identifier 02716- 6 Result Time 2018-06-05 08:13:00Unknown Test Item Value Reference Range Comments Unknown (test code = 706-2) 0.5 % Unknown Unknown F Ordering Physician UnknownLaboratory Alhlsex7239-43-07 08:13:00Identifier 76524- 6 Result Time 2018-06-05 08:13:00Unknown Test Item Value Reference Range Comments Unknown (test code = HFQ9459) 23.2 10^3/ul Unknown 1.5-7.7 F Ordering Physician UnknownLaboratory Azgzfjb7271-55-00 08:13:00Identifier 07117- 6 Result Time 2018-06-05 08:13:00Unknown Test Item Value Reference Range Comments Unknown (test code = 742-7) 2.4 10^3/ul Unknown 0-0.8 F Ordering Physician UnknownLaboratory Ouelucn0966-37-72 08:13:00Identifier 94556- 6 Result Time 2018-06-05 08:13:00Unknown Test Item Value Reference Range Comments Unknown (test code = 731-0) 1.5 10^3/ul Unknown 1.0-4.8 F Ordering Physician UnknownLaboratory Vgxhgnn9005-12-65 08:13:00Identifier 33017- 6 Result Time 2018-06-05 08:13:00Unknown Test Item Value Reference Range Comments Unknown (test code = 711-2) 0.2 10^3/ul Unknown 0-0.6 F Ordering Physician UnknownLaboratory Rcwlceq9218-11-17 08:13:00Identifier 03262- 6 Result Time 2018-06-05 08:13:00Unknown Test Item Value Reference Range Comments Unknown (test code = 704-7) 0.1 10^3/ul Unknown 0-0.2 F Ordering Physician UnknownLaboratory Bvohluo0000-37-86 06:46:00Identifier 84507- 6 Result Time 2018-06-04 06:46:00Unknown Test Item Value Reference Range Comments Unknown (test code = 77719-7) 0.05 ng/mL Unknown Unknown F Ordering Physician UnknownLaboratory Ygpgodb0401-26-77 06:46:00Identifier 22028- 6 Result Time 2018-06-04 06:46:00Unknown Test Item Value Reference Range Comments Unknown (test code = 2777-1) 2.8 mg/dL Unknown 2.5-5.0 F Ordering Physician UnknownLaboratory Zrgwexi0064-78-42 06:46:00Identifier 38610- 6 Result Time 2018-06-04 06:46:00Unknown Test Item Value Reference Range Comments Unknown (test code = 18761-1) 2.5 mg/dL Unknown 1.9-2.7 F Ordering Physician UnknownLaboratory Etibhje3479-95-00 10:48:00Identifier 28974- 6 Result Time 2018-06-03 10:48:00Unknown Test Item Value Reference Range Comments Unknown (test code = NullTestCode) 6.0 Unknown 5-9 F Ordering Physician UnknownLaboratory Fkqohzi2898-99-48 10:48:00Identifier 30815- 6 Result Time 2018-06-03 10:48:00Unknown Test Item Value Reference Range Comments Unknown (test code = 77051-5) 1.013 Unknown 1.010-1.030 F Ordering Physician UnknownLaboratory Vyvrwbl6229-51-92 10:15:00Identifier 39867- 6 Result Time 2018-06-03 10:15:00Unknown Test Item Value Reference Range Comments Unknown (test code = 3016-3) 3.38 mcIU/mL Unknown 0.34-5.60 F Ordering Physician UnknownLaboratory Lnczlve6490-79-20 10:15:00Identifier 78633- 6 Result Time 2018-06-03 10:15:00Unknown Test Item Value Reference Range Comments Unknown (test code = 33701-4) 1.14 Unknown 0.77-1.02 F Ordering Physician UnknownLaboratory Mnkivcp2719-46-05 10:15:00Identifier 47422- 6 Result Time 2018-06-03 10:15:00Unknown Test Item Value Reference Range Comments Unknown (test code = 75899-2) 365 pg/mL Unknown Unknown F Ordering Physician UnknownLaboratory Scqxowz1976-19-21 10:15:00Identifier 69168- 6 Result Time 2018-06-03 10:15:00Unknown Test Item Value Reference Range Comments Unknown (test code = 2885-2) 8.9 g/dL Unknown 6.4-8.9 F Ordering Physician UnknownLaboratory Pfwamnv2034-34-13 10:15:00Identifier 88578- 6 Result Time 2018-06-03 10:15:00Unknown Test Item Value Reference Range Comments Unknown (test code = 1975-2) 0.60 mg/dL Unknown 0.2-1.0 F Ordering Physician UnknownLaboratory Rhrhdwa0616-17-57 10:15:00Identifier 31083- 6 Result Time 2018-06-03 10:15:00Unknown Test Item Value Reference Range Comments Unknown (test code = NullTestCode) 4.9 g/dL Unknown 2-4 F Ordering Physician UnknownLaboratory Cberubi5583-49-91 10:15:00Identifier 30122- 6 Result Time 2018-06-03 10:15:00Unknown Test Item Value Reference Range Comments Unknown (test code = 1988-5) 11.17 mg/L Unknown 0-8.00 F Ordering Physician UnknownLaboratory Yqzgcsh9751-93-37 10:15:00Identifier 31225- 6 Result Time 2018-06-03 10:15:00Unknown Test Item Value Reference Range Comments Unknown (test code = 1920-8) 25 U/L Unknown 13-39 F Ordering Physician UnknownLaboratory Mhuhzlz7898-04-59 10:15:00Identifier 57888- 6 Result Time 2018-06-03 10:15:00Unknown Test Item Value Reference Range Comments Unknown (test code = 6768-6) 153 U/L Unknown 34-104 F Ordering Physician UnknownLaboratory Pbiakff1048-01-73 10:15:00Identifier 95120- 6 Result Time 2018-06-03 10:15:00Unknown Test Item Value Reference Range Comments Unknown (test code = 1759-0) 0.8 Unknown 1-3 F Ordering Physician UnknownLaboratory Vdzsxtr1477-43-55 10:15:00Identifier 97445- 6 Result Time 2018-06-03 10:15:00Unknown Test Item Value Reference Range Comments Unknown (test code = 60949-3) 4.0 g/dL Unknown 3.2-5.2 F Ordering Physician UnknownLaboratory Tlcpmnc7474-59-47 10:15:00Identifier 79340- 6 Result Time 2018-06-03 10:15:00Unknown Test Item Value Reference Range Comments Unknown (test code = 1742-6) 13 U/L Unknown 7-52 F Ordering Physician UnknownLaboratory Opraejo1750-60-72 10:15:00Identifier 44420- 6 Result Time 2018-06-03 10:15:00Unknown Test Item Value Reference Range Comments Unknown (test code = 2524-7) 0.9 mmol/L Unknown 0.5-2.0 F Ordering Physician Unknown
[2019-01-21] MEDS ORDERED: Iodixanol* (CONTRAST) 320 MG/ML 100 ML SDV IV ONE (16:51)
[2019-01-21 16:52] LABS: Hematocrit 39 % (42-52); Mean Corpuscular HGB Conc 30 g/dL (31-36); Mean Corpuscular Hemoglobin 22 pg (27-31); Mean Corpuscular Volume 74 fL (80-94); Mean Platelet Volume 9.2 fL (7.4-10.4); Platelet Count 647 10^3/uL (150-450); Red Blood Count 5.35 10^6 /uL (4.18-5.48); Red Cell Distribution Width 24 % (10-15)
--- NOTE | 2019-01-21 17:23 | CONS ---
CC: Dr. Varela; Dr. Deidre Cooley; Dr. Rivero * CONSULTATION REPORT: DATE OF CONSULT: 01/21/19 - EMERGENCY DEPT ATTENDING PHYSICIAN WHILE IN THE HOSPITAL: Dr. Austin Rivero (report dictated by Dung Glasgow NP). REQUESTING PHYSICIAN IN CONSULT: Dr. Varela. PRIMARY CARE PROVIDER: Dr. Diedre Cooley. REASON FOR NEUROLOGICAL CONSULTATION: Evaluation of headache. HISTORY OF PRESENT ILLNESS: Mr. Chavez is an 88-year-old male patient who carries a history of basilar artery stenosis, polycythemia vera, GERD, essential hypertension, aortic stenosis, polymyalgia rheumatica, left bundle branch block, who comes into the ER today stating that over the last 6 to 7 days he has had a worsening headache which he describes it as a pressure involving his entire head. He feels like his head is going to pop up. He also has been complaining of feeling more dizzy. He states that over the last 6 to 7 days, he has been getting much worse with the headache. He denies having any visual changes. The patient states that he continued to have dizziness when he has a bad headache. He states that since the last time I saw him in November he had been taking his Topamax 2 tablets at bedtime, 1 tablet in the morning and according to his and the patient he had been feeling better. The notes that in addition to the worsening headache he has been having a little bit more difficulty with his speech and it seems a little bit more slurred. She also notes that he has been having episodes like this in the past and just normally that the episode does not last this long. The notes and the patient notes that he did see Dr. Horton today and according to them it was stated to them that from a neurosurgical standpoint there was nothing more that could be offered at this point. He continues to take the Plavix for the basilar artery stenosis. He denies having any loss of consciousness. He has not fallen. He has not had any trauma. He just notes that the headache is much worse. He has really been unable to tolerate it. The only new characteristic for this headache is it is lasting longer and is more intense in nature. He overall is tolerating the Topamax well. He was evaluated by Dr. Cooley today. There was concern because his headache was worse and the fact that he was having slurred speech and he presented to our ER. NIH Stroke Scale was performed. His NIH Stroke Scale was 1 due to the fact that he did have some slurred speech. The patient was evaluated by myself and Dr. Rivero. PAST MEDICAL HISTORY: Significant for: 1. Basilar artery stenosis. 2. Headaches. 3. Aortic stenosis. 4. Hypertension. 5. GERD. 6. Polycythemia vera. 7. History of PMR. 8. Left bundle branch block. PAST SURGICAL HISTORY: He has had: 1. Hip surgery. 2. Laparoscopy. 3. Elias fundoplication. 4. Hernia repair. HOME MEDICATIONS: Include: 1. Topamax. He is taking 1 tablet in the morning, 2 tablets at night. 2. Lipitor 40 mg daily. 3. Plavix 75 mg daily. 4. Verapamil 120 mg tablet. He takes half a tablet daily. 5. Multivitamin 1 tablet daily. 6. Magnesium 400 mg daily. 7. Hydroxyurea 500 mg daily. 8. Protonix 40 mg daily. 9. Calcium with vitamin D 1 tablet by mouth daily. 10. Calcium, magnesium, and zinc with vitamin D3 one tablet daily. ALLERGIES TO MEDICATIONS: Include no known drug allergies. FAMILY HISTORY: His father had a brain aneurysm. Mother was a drinker. SOCIAL HISTORY: He is . He is a gary. He is a former smoker. PHYSICAL EXAM: Vital Signs: Blood pressure 124/58 with a pulse of 65, respirations 16, O2 saturation 98%, temperature 98.4. General: At this time, Mr. Chavez is an 88-year-old male patient. He is sitting in the ED stretcher. He does not appear to be in any acute distress. He is well nourished and well developed. HEENT: Head: Atraumatic, normocephalic. Eyes: EOMs intact. Sclerae anicteric and not pale. Throat: Oral mucosa appears to be moist. No oropharyngeal erythema. Neck was supple. Heart: Sounds S1, S2. Regular rate and rhythm. He had a grade 3 murmur in the aortic listening area. Lungs: Clear to auscultation bilaterally. Abdomen was soft, flat, nontender. Bowel sounds were present. Extremities: Pulses were 2+ throughout. He is moving all 4 extremities with 5/5 strength. Neurologically, he is awake, he is alert, he is oriented x3. His speech was slightly slurred. There was mild dysarthria noted. It was slightly slurred. He had no aphasia noted. His pupils were equal and reactive to light. EOMs were intact. Visual kam were intact to confrontation. Face was symmetric bilaterally. Sensation intact. Tongue midline. Palate elevated symmetrically. Motor: Again, he had 5/5 strength in the upper and lower extremities. He is moving all 4 extremities. No drift was noted. Sensation was grossly intact to light touch. No evidence of neglect was noted. Tsrzyk-pp-arvv was intact bilaterally. Ecsa-bo-rwby was intact bilaterally. No tremors were noted. Deep tendon reflexes were symmetric in the biceps, brachioradialis, patella 1+ bilaterally. His gait was noted to be wide based with a shuffle, slightly unsteady. Romberg, minimal sway with eyes open, moderate sway with eyes closed. No other gross focal neuro deficits were noted. Skin: Intact. DIAGNOSTIC STUDIES/LAB DATA: Labs are pending at this point. Old medical records were reviewed. ASSESSMENT AND PLAN: Mr. Chavez is an 88-year-old male patient with a complex medical history, referred to the ER today for complaints of worsening headache. We were asked to evaluate in consult for recommendations. Recommendations going forward at this point are: Headache. At this point, this could represent a recurrence of his typical headaches; however, given the complexity of the basilar artery stenosis and the fact that they have worsened, I do recommend imaging. He does have a history of polycythemia vera and I do recommend a CTV to rule out clots. I would like to get the records from Dr. Horton. He did see the patient today. At this point , I do not believe the headache is coming from the basilar artery stenosis. I discussed this with Dr. Rivero and he did evaluate the patient today as well and he was in agreement. We would like to increase his Topamax to 2 tablets twice a day for a total of 50 mg twice a day as it was helping previously. We will hydrate him in the ER and reevaluate him to see how he does. I have asked the to call me on to let me know how he is doing. We want to see him next week. I have asked them to have the records from Dr. Horton sent over. He knows to drink plenty of water with the Topamax. He knows that it can cause kidney stones, paresthesias, and weight loss. I have asked the ER to obtain a CT of the brain. I have asked them to also obtain a CTV as well. CT of the brain is actually back and it does show no acute intracranial pathology, chronic small vessel ischemic change noted. If CTV is negative and the patient does return to baseline, he can be discharged safely home with the increased Topamax. I discussed the case today with Dr. Rivero. Again, he was present for the evaluation and was in agreement with the plan. DUNG GLASGOW, TECHNICIAN [employer] [id number]/CPS #: [id number] LAMIN
[2019-01-21 17:43] LABS: Polychromasia 1+
[2019-01-21 17:44] LABS: Microcytosis 1+
[2019-01-21 17:45] LABS: ABS Basophils 0.3 10^3/ul (0-0.2); ABS Eosinophils 0.3 10^3/ul (0-0.6); ABS Lymphocytes 1.9 10^3/ul (1.0-4.8); ABS Monocytes 4.8 10^3/ul (0-0.8); ABS Neutrophils 38.8 10^3/ul (1.5-7.7); Eosinophil % 0.6 %; Lymphocyte % 4.2 %
[2019-01-21 18:51] VITALS: BP 129/72
== END 2019-01-21 18:51 | disposition home or self-care (01) ==
LOC: ED 14:15
DX: R51 Headache (principal); D45 Polycythemia vera; I10 Essential (primary) hypertension; I35.0 Nonrheumatic aortic (valve) stenosis; K21.9 Gastro-esophageal reflux disease without esophagitis; Z86.73 Personal history of transient ischemic attack (TIA), and cerebral infarction without residual deficits; Z87.891 Personal history of nicotine dependence; Z79.01 Long term (current) use of anticoagulants; Z79.899 Other long term (current) drug therapy
CPT/HCPCS: 36415; 70450; 70496; 80048; 85025; 85060; 93005; 99283; A9270-GY; Q9967

== ENCOUNTER 2019-06-13 09:22 | Emergency (ER) | payer MEDICARE ==
--- OUTSIDE RECORDS SUMMARY | 2019-06-13 09:56 | XMS REPORT ---
:1930 Author Organization [facility] Care Team Providers Name [...] Result Comments Laboratory Studies 2018-06-05 08:13:00 Identifier [id number] Result Time Unknown 2018-06-05 08:13:00 Test Item Value Reference Range Comments Unknown (test code = 2951-2) 136 mmol/L Unknown 135-145 F Ordering Physician UnknownLaboratory Mojjytr4166-35-75 08:13:00Identifier [id number]- 6 Result Time 2018-06-05 08:13:00Unknown Test Item Value Reference Range Comments Unknown (test code = 2823-3) 4.0 mmol/L Unknown 3.5-5.0 F Ordering Physician UnknownLaboratory Nozcqkj6233-08-78 08:13:00Identifier [id number]- 6 Result Time 2018-06-05 08:13:00Unknown Test Item Value Reference Range Comments Unknown (test code = 2345-7) 87 mg/dL Unknown 70-100 F Ordering Physician UnknownLaboratory Avsmrax3518-33-67 08:13:00Identifier 77583- 6 Result Time 2018-06-05 08:13:00Unknown Test Item Value Reference Range Comments Unknown (test code = 20791-3) 46.9 Unknown Unknown F Ordering Physician UnknownLaboratory Njovidd9822-45-05 08:13:00Identifier 40625- 6 Result Time 2018-06-05 08:13:00Unknown Test Item Value Reference Range Comments Unknown (test code = NullTestCode) 56.7 Unknown Unknown F Ordering Physician UnknownLaboratory Tvullpn3612-97-94 08:13:00Identifier [id number]- 6 Result Time 2018-06-05 08:13:00Unknown Test Item Value Reference Range Comments Unknown (test code = 2160-0) 1.43 mg/dL Unknown 0.67-1.17 F Ordering Physician UnknownLaboratory Pvxdiok7950-93-17 08:13:00Identifier [id number]- 6 Result Time 2018-06-05 08:13:00Unknown Test Item Value Reference Range Comments Unknown (test code = 2075-0) 104 mmol/L Unknown 101-111 F Ordering Physician UnknownLaboratory Psdkssp9090-85-17 08:13:00Identifier [id number]- 6 Result Time 2018-06-05 08:13:00Unknown Test Item Value Reference Range Comments Unknown (test code = 2028-9) 24 mmol/L Unknown 22-32 F Ordering Physician UnknownLaboratory Dxoorgz0027-19-92 08:13:00Identifier 45945- 6 Result Time 2018-06-05 08:13:00Unknown Test Item Value Reference Range Comments Unknown (test code = 82552-1) 9.0 mg/dL Unknown 8.6-10.3 F Ordering Physician UnknownLaboratory Ukvmnsi1169-77-90 08:13:00Identifier 91787- 6 Result Time 2018-06-05 08:13:00Unknown Test Item Value Reference Range Comments Unknown (test code = 3094-0) 24 mg/dL Unknown 6-24 F Ordering Physician UnknownLaboratory Lzhmsdy9102-56-11 08:13:00Identifier 93604- 6 Result Time 2018-06-05 08:13:00Unknown Test Item Value Reference Range Comments Unknown (test code = 3097-3) 16.8 Unknown 8-20 F Ordering Physician UnknownLaboratory Dlmbmen7639-25-67 08:13:00Identifier [id number]- 6 Result Time 2018-06-05 08:13:00Unknown Test Item Value Reference Range Comments Unknown (test code = 80527-4) 8 mmol/L Unknown 2-11 F Ordering Physician UnknownLaboratory Yvpuqik7639-90-47 08:13:00Identifier 60371- 6 Result Time 2018-06-05 08:13:00Unknown Test Item Value Reference Range Comments Unknown (test code = 49963-3) 27.4 10^3/uL Unknown 3.5-10.8 F Ordering Physician UnknownLaboratory Kydpbiw8609-81-69 08:13:00Identifier 25336- 6 Result Time 2018-06-05 08:13:00Unknown Test Item Value Reference Range Comments Unknown (test code = 788-0) 24 % Unknown 10.5-15 F Ordering Physician UnknownLaboratory Ragqmev4873-68-72 08:13:00Identifier 32282- 6 Result Time 2018-06-05 08:13:00Unknown Test Item Value Reference Range Comments Unknown (test code = 789-8) 5.19 10^6 /uL Unknown 4.18-5.48 F Ordering Physician UnknownLaboratory Tvybyth9474-05-85 08:13:00Identifier 51549- 6 Result Time 2018-06-05 08:13:00Unknown Test Item Value Reference Range Comments Unknown (test code = 777-3) 330 10^3/uL Unknown 150-450 F Ordering Physician UnknownLaboratory Cqpxcpl9306-46-63 08:13:00Identifier 30633- 6 Result Time 2018-06-05 08:13:00Unknown Test Item Value Reference Range Comments Unknown (test code = 34466-3) 0 Unknown Unknown F Ordering Physician UnknownLaboratory Iatupwx6182-88-00 08:13:00Identifier [id number]- 6 Result Time 2018-06-05 08:13:00Unknown Test Item Value Reference Range Comments Unknown (test code = 771-6) 0 10^3/ul Unknown Unknown F Ordering Physician UnknownLaboratory Yvulkdi9531-66-42 08:13:00Identifier 60610- 6 Result Time 2018-06-05 08:13:00Unknown Test Item Value Reference Range Comments Unknown (test code = 770-8) 84.7 % Unknown Unknown F Ordering Physician UnknownLaboratory Bjladln9308-21-17 08:13:00Identifier 47460- 6 Result Time 2018-06-05 08:13:00Unknown Test Item Value Reference Range Comments Unknown (test code = 5905-5) 8.6 % Unknown Unknown F Ordering Physician UnknownLaboratory Uzcnyzl2423-16-78 08:13:00Identifier 94281- 6 Result Time 2018-06-05 08:13:00Unknown Test Item Value Reference Range Comments Unknown (test code = 97148-9) 8.6 fL Unknown 7.4-10.4 F Ordering Physician UnknownLaboratory Jarmkvn0891-28-13 08:13:00Identifier [id number]- 6 Result Time 2018-06-05 08:13:00Unknown Test Item Value Reference Range Comments Unknown (test code = 787-2) 78 fL Unknown 80-94 F Ordering Physician UnknownLaboratory Dhqbmae8193-65-76 08:13:00Identifier 57692- 6 Result Time 2018-06-05 08:13:00Unknown Test Item Value Reference Range Comments Unknown (test code = 786-4) 31 g/dL Unknown 31-36 F Ordering Physician UnknownLaboratory Rontjto2534-43-04 08:13:00Identifier 28669- 6 Result Time 2018-06-05 08:13:00Unknown Test Item Value Reference Range Comments Unknown (test code = 785-6) 24 pg Unknown 27-31 F Ordering Physician UnknownLaboratory Zztgfzp9619-31-95 08:13:00Identifier 80484- 6 Result Time 2018-06-05 08:13:00Unknown Test Item Value Reference Range Comments Unknown (test code = 736-9) 5.4 % Unknown Unknown F Ordering Physician UnknownLaboratory Ccjqrad0889-65-44 08:13:00Identifier 88486- 6 Result Time 2018-06-05 08:13:00Unknown Test Item Value Reference Range Comments Unknown (test code = 718-7) 12.3 g/dL Unknown 14.0-18.0 F Ordering Physician UnknownLaboratory Naufmmd4447-12-26 08:13:00Identifier 99867- 6 Result Time 2018-06-05 08:13:00Unknown Test Item Value Reference Range Comments Unknown (test code = 4544-3) 40 % Unknown 36-46 F Ordering Physician UnknownLaboratory Vgjnmij4392-97-87 08:13:00Identifier 88413- 6 Result Time 2018-06-05 08:13:00Unknown Test Item Value Reference Range Comments Unknown (test code = 713-8) 0.8 % Unknown Unknown F Ordering Physician UnknownLaboratory Amyzlxg2044-45-80 08:13:00Identifier 98313- 6 Result Time 2018-06-05 08:13:00Unknown Test Item Value Reference Range Comments Unknown (test code = 706-2) 0.5 % Unknown Unknown F Ordering Physician UnknownLaboratory Wbkpvob2961-56-83 08:13:00Identifier 25461- 6 Result Time 2018-06-05 08:13:00Unknown Test Item Value Reference Range Comments Unknown (test code = VXR1169) 23.2 10^3/ul Unknown 1.5-7.7 F Ordering Physician UnknownLaboratory Imsxwbp1570-30-25 08:13:00Identifier 84463- 6 Result Time 2018-06-05 08:13:00Unknown Test Item Value Reference Range Comments Unknown (test code = 742-7) 2.4 10^3/ul Unknown 0-0.8 F Ordering Physician UnknownLaboratory Vvclbxf6800-47-80 08:13:00Identifier 19914- 6 Result Time 2018-06-05 08:13:00Unknown Test Item Value Reference Range Comments Unknown (test code = 731-0) 1.5 10^3/ul Unknown 1.0-4.8 F Ordering Physician UnknownLaboratory Ddbbxku4715-67-15 08:13:00Identifier 56354- 6 Result Time 2018-06-05 08:13:00Unknown Test Item Value Reference Range Comments Unknown (test code = 711-2) 0.2 10^3/ul Unknown 0-0.6 F Ordering Physician UnknownLaboratory Qjjiuoe3147-49-66 08:13:00Identifier 80281- 6 Result Time 2018-06-05 08:13:00Unknown Test Item Value Reference Range Comments Unknown (test code = 704-7) 0.1 10^3/ul Unknown 0-0.2 F Ordering Physician UnknownLaboratory Avdgqre4775-35-43 06:46:00Identifier 63597- 6 Result Time 2018-06-04 06:46:00Unknown Test Item Value Reference Range Comments Unknown (test code = 63964-2) 0.05 ng/mL Unknown Unknown F Ordering Physician UnknownLaboratory Rydwgbf6533-17-19 06:46:00Identifier 51371- 6 Result Time 2018-06-04 06:46:00Unknown Test Item Value Reference Range Comments Unknown (test code = 2777-1) 2.8 mg/dL Unknown 2.5-5.0 F Ordering Physician UnknownLaboratory Auxywxo4598-09-77 06:46:00Identifier 31804- 6 Result Time 2018-06-04 06:46:00Unknown Test Item Value Reference Range Comments Unknown (test code = 87636-9) 2.5 mg/dL Unknown 1.9-2.7 F Ordering Physician UnknownLaboratory Ocjyaqe7382-26-53 10:48:00Identifier 80594- 6 Result Time 2018-06-03 10:48:00Unknown Test Item Value Reference Range Comments Unknown (test code = NullTestCode) 6.0 Unknown 5-9 F Ordering Physician UnknownLaboratory Iqekbwj1486-21-65 10:48:00Identifier 85594- 6 Result Time 2018-06-03 10:48:00Unknown Test Item Value Reference Range Comments Unknown (test code = 23068-8) 1.013 Unknown 1.010-1.030 F Ordering Physician UnknownLaboratory Ykeachg0813-31-26 10:15:00Identifier 23417- 6 Result Time 2018-06-03 10:15:00Unknown Test Item Value Reference Range Comments Unknown (test code = 3016-3) 3.38 mcIU/mL Unknown 0.34-5.60 F Ordering Physician UnknownLaboratory Fwnscem5103-23-00 10:15:00Identifier 45220- 6 Result Time 2018-06-03 10:15:00Unknown Test Item Value Reference Range Comments Unknown (test code = 41887-1) 1.14 Unknown 0.77-1.02 F Ordering Physician UnknownLaboratory Uumrkht9059-29-89 10:15:00Identifier 38194- 6 Result Time 2018-06-03 10:15:00Unknown Test Item Value Reference Range Comments Unknown (test code = 57452-6) 365 pg/mL Unknown Unknown F Ordering Physician UnknownLaboratory Rvbasnt3498-06-92 10:15:00Identifier 52134- 6 Result Time 2018-06-03 10:15:00Unknown Test Item Value Reference Range Comments Unknown (test code = 2885-2) 8.9 g/dL Unknown 6.4-8.9 F Ordering Physician UnknownLaboratory Ktroxxp0782-87-17 10:15:00Identifier 95781- 6 Result Time 2018-06-03 10:15:00Unknown Test Item Value Reference Range Comments Unknown (test code = 1975-2) 0.60 mg/dL Unknown 0.2-1.0 F Ordering Physician UnknownLaboratory Jyenbgf3400-03-60 10:15:00Identifier 20607- 6 Result Time 2018-06-03 10:15:00Unknown Test Item Value Reference Range Comments Unknown (test code = NullTestCode) 4.9 g/dL Unknown 2-4 F Ordering Physician UnknownLaboratory Exiskbo2226-07-89 10:15:00Identifier 46316- 6 Result Time 2018-06-03 10:15:00Unknown Test Item Value Reference Range Comments Unknown (test code = 1988-5) 11.17 mg/L Unknown 0-8.00 F Ordering Physician UnknownLaboratory Jfmtgob0214-05-58 10:15:00Identifier 29357- 6 Result Time 2018-06-03 10:15:00Unknown Test Item Value Reference Range Comments Unknown (test code = 1920-8) 25 U/L Unknown 13-39 F Ordering Physician UnknownLaboratory Bfcemdb8660-80-31 10:15:00Identifier 34837- 6 Result Time 2018-06-03 10:15:00Unknown Test Item Value Reference Range Comments Unknown (test code = 6768-6) 153 U/L Unknown 34-104 F Ordering Physician UnknownLaboratory Hohxqka7204-22-49 10:15:00Identifier 84648- 6 Result Time 2018-06-03 10:15:00Unknown Test Item Value Reference Range Comments Unknown (test code = 1759-0) 0.8 Unknown 1-3 F Ordering Physician UnknownLaboratory Ryedgmb3397-51-21 10:15:00Identifier 60486- 6 Result Time 2018-06-03 10:15:00Unknown Test Item Value Reference Range Comments Unknown (test code = 42187-4) 4.0 g/dL Unknown 3.2-5.2 F Ordering Physician UnknownLaboratory Piqrnjc3646-72-00 10:15:00Identifier 94763- 6 Result Time 2018-06-03 10:15:00Unknown Test Item Value Reference Range Comments Unknown (test code = 1742-6) 13 U/L Unknown 7-52 F Ordering Physician UnknownLaboratory Ecnwnzc4041-88-79 10:15:00Identifier 45913- 6 Result Time 2018-06-03 10:15:00Unknown Test Item Value Reference Range Comments Unknown (test code = 2524-7) 0.9 mmol/L Unknown 0.5-2.0 F Ordering Physician Unknown
--- OUTSIDE RECORDS SUMMARY | 2019-06-13 09:56 | XMS REPORT ---
:1930 Author Organization [facility] Care Team Providers Name Role Phone [...] 4-15 capsule,del capsule,del ayed ayed release release verapamiL verapamiL No Unknown Unknown Unknown ER 120 mg [...] Result Comments Laboratory Studies 2018-06-05 08:13:00 Identifier [id number] Result Time Unknown 2018-06-05 08:13:00 Test Item Value Reference Range Comments Unknown (test code = 2951-2) 136 mmol/L Unknown 135-145 F Ordering Physician UnknownLaboratory Bapplue3234-03-86 08:13:00Identifier 68011- 6 Result Time 2018-06-05 08:13:00Unknown Test Item Value Reference Range Comments Unknown (test code = 2823-3) 4.0 mmol/L Unknown 3.5-5.0 F Ordering Physician UnknownLaboratory Smctgik5882-38-31 08:13:00Identifier 38448- 6 Result Time 2018-06-05 08:13:00Unknown Test Item Value Reference Range Comments Unknown (test code = 2345-7) 87 mg/dL Unknown 70-100 F Ordering Physician UnknownLaboratory Irgqhex9189-03-87 08:13:00Identifier 37590- 6 Result Time 2018-06-05 08:13:00Unknown Test Item Value Reference Range Comments Unknown (test code = 02510-3) 46.9 Unknown Unknown F Ordering Physician UnknownLaboratory Ptyzuak9841-15-21 08:13:00Identifier 78460- 6 Result Time 2018-06-05 08:13:00Unknown Test Item Value Reference Range Comments Unknown (test code = NullTestCode) 56.7 Unknown Unknown F Ordering Physician UnknownLaboratory Ujzvtre9955-80-31 08:13:00Identifier 19997- 6 Result Time 2018-06-05 08:13:00Unknown Test Item Value Reference Range Comments Unknown (test code = 2160-0) 1.43 mg/dL Unknown 0.67-1.17 F Ordering Physician UnknownLaboratory Bjktxvg1009-06-15 08:13:00Identifier 93930- 6 Result Time 2018-06-05 08:13:00Unknown Test Item Value Reference Range Comments Unknown (test code = 2075-0) 104 mmol/L Unknown 101-111 F Ordering Physician UnknownLaboratory Sexykuq5777-55-90 08:13:00Identifier 19364- 6 Result Time 2018-06-05 08:13:00Unknown Test Item Value Reference Range Comments Unknown (test code = 2028-9) 24 mmol/L Unknown 22-32 F Ordering Physician UnknownLaboratory Vxrzmkw2463-44-76 08:13:00Identifier 18254- 6 Result Time 2018-06-05 08:13:00Unknown Test Item Value Reference Range Comments Unknown (test code = 19414-4) 9.0 mg/dL Unknown 8.6-10.3 F Ordering Physician UnknownLaboratory Dlpseta6616-60-87 08:13:00Identifier 74851- 6 Result Time 2018-06-05 08:13:00Unknown Test Item Value Reference Range Comments Unknown (test code = 3094-0) 24 mg/dL Unknown 6-24 F Ordering Physician UnknownLaboratory Qxilynz7028-33-53 08:13:00Identifier 51690- 6 Result Time 2018-06-05 08:13:00Unknown Test Item Value Reference Range Comments Unknown (test code = 3097-3) 16.8 Unknown 8-20 F Ordering Physician UnknownLaboratory Luqqjei2597-91-99 08:13:00Identifier 67225- 6 Result Time 2018-06-05 08:13:00Unknown Test Item Value Reference Range Comments Unknown (test code = 98620-5) 8 mmol/L Unknown 2-11 F Ordering Physician UnknownLaboratory Oynksbb4559-90-74 08:13:00Identifier 99116- 6 Result Time 2018-06-05 08:13:00Unknown Test Item Value Reference Range Comments Unknown (test code = 38173-2) 27.4 10^3/uL Unknown 3.5-10.8 F Ordering Physician UnknownLaboratory Ushongf2495-20-01 08:13:00Identifier 33320- 6 Result Time 2018-06-05 08:13:00Unknown Test Item Value Reference Range Comments Unknown (test code = 788-0) 24 % Unknown 10.5-15 F Ordering Physician UnknownLaboratory Ldoftso4216-12-55 08:13:00Identifier 43356- 6 Result Time 2018-06-05 08:13:00Unknown Test Item Value Reference Range Comments Unknown (test code = 789-8) 5.19 10^6 /uL Unknown 4.18-5.48 F Ordering Physician UnknownLaboratory Igmuthc6879-12-33 08:13:00Identifier 95117- 6 Result Time 2018-06-05 08:13:00Unknown Test Item Value Reference Range Comments Unknown (test code = 777-3) 330 10^3/uL Unknown 150-450 F Ordering Physician UnknownLaboratory Wwolppg9592-49-21 08:13:00Identifier 71508- 6 Result Time 2018-06-05 08:13:00Unknown Test Item Value Reference Range Comments Unknown (test code = 44367-8) 0 Unknown Unknown F Ordering Physician UnknownLaboratory Tbggjfl2100-93-61 08:13:00Identifier 16954- 6 Result Time 2018-06-05 08:13:00Unknown Test Item Value Reference Range Comments Unknown (test code = 771-6) 0 10^3/ul Unknown Unknown F Ordering Physician UnknownLaboratory Zfphozy2487-03-88 08:13:00Identifier 65654- 6 Result Time 2018-06-05 08:13:00Unknown Test Item Value Reference Range Comments Unknown (test code = 770-8) 84.7 % Unknown Unknown F Ordering Physician UnknownLaboratory Idmspns4694-68-63 08:13:00Identifier 79975- 6 Result Time 2018-06-05 08:13:00Unknown Test Item Value Reference Range Comments Unknown (test code = 5905-5) 8.6 % Unknown Unknown F Ordering Physician UnknownLaboratory Qdqyiql1781-10-40 08:13:00Identifier 81879- 6 Result Time 2018-06-05 08:13:00Unknown Test Item Value Reference Range Comments Unknown (test code = 40788-4) 8.6 fL Unknown 7.4-10.4 F Ordering Physician UnknownLaboratory Oqrqroo5526-65-26 08:13:00Identifier 65137- 6 Result Time 2018-06-05 08:13:00Unknown Test Item Value Reference Range Comments Unknown (test code = 787-2) 78 fL Unknown 80-94 F Ordering Physician UnknownLaboratory Toruagq2640-82-89 08:13:00Identifier 62703- 6 Result Time 2018-06-05 08:13:00Unknown Test Item Value Reference Range Comments Unknown (test code = 786-4) 31 g/dL Unknown 31-36 F Ordering Physician UnknownLaboratory Lcfogbt5340-07-04 08:13:00Identifier 71228- 6 Result Time 2018-06-05 08:13:00Unknown Test Item Value Reference Range Comments Unknown (test code = 785-6) 24 pg Unknown 27-31 F Ordering Physician UnknownLaboratory Ggnulka3347-23-02 08:13:00Identifier 61508- 6 Result Time 2018-06-05 08:13:00Unknown Test Item Value Reference Range Comments Unknown (test code = 736-9) 5.4 % Unknown Unknown F Ordering Physician UnknownLaboratory Giwhlge4143-27-19 08:13:00Identifier 30322- 6 Result Time 2018-06-05 08:13:00Unknown Test Item Value Reference Range Comments Unknown (test code = 718-7) 12.3 g/dL Unknown 14.0-18.0 F Ordering Physician UnknownLaboratory Zdzqdua9927-05-91 08:13:00Identifier 85077- 6 Result Time 2018-06-05 08:13:00Unknown Test Item Value Reference Range Comments Unknown (test code = 4544-3) 40 % Unknown 36-46 F Ordering Physician UnknownLaboratory Ycrujuj4684-50-14 08:13:00Identifier 78173- 6 Result Time 2018-06-05 08:13:00Unknown Test Item Value Reference Range Comments Unknown (test code = 713-8) 0.8 % Unknown Unknown F Ordering Physician UnknownLaboratory Tepvukd1653-46-90 08:13:00Identifier 18505- 6 Result Time 2018-06-05 08:13:00Unknown Test Item Value Reference Range Comments Unknown (test code = 706-2) 0.5 % Unknown Unknown F Ordering Physician UnknownLaboratory Hblxyai9679-22-39 08:13:00Identifier 45248- 6 Result Time 2018-06-05 08:13:00Unknown Test Item Value Reference Range Comments Unknown (test code = ZLT7863) 23.2 10^3/ul Unknown 1.5-7.7 F Ordering Physician UnknownLaboratory Ysptbjf8051-72-65 08:13:00Identifier 00414- 6 Result Time 2018-06-05 08:13:00Unknown Test Item Value Reference Range Comments Unknown (test code = 742-7) 2.4 10^3/ul Unknown 0-0.8 F Ordering Physician UnknownLaboratory Nnbokhm1994-20-18 08:13:00Identifier 65450- 6 Result Time 2018-06-05 08:13:00Unknown Test Item Value Reference Range Comments Unknown (test code = 731-0) 1.5 10^3/ul Unknown 1.0-4.8 F Ordering Physician UnknownLaboratory Ylpntvm7876-97-59 08:13:00Identifier 34016- 6 Result Time 2018-06-05 08:13:00Unknown Test Item Value Reference Range Comments Unknown (test code = 711-2) 0.2 10^3/ul Unknown 0-0.6 F Ordering Physician UnknownLaboratory Lnjqfcd1938-84-93 08:13:00Identifier 12138- 6 Result Time 2018-06-05 08:13:00Unknown Test Item Value Reference Range Comments Unknown (test code = 704-7) 0.1 10^3/ul Unknown 0-0.2 F Ordering Physician UnknownLaboratory Aamsaqn7739-74-91 06:46:00Identifier 04134- 6 Result Time 2018-06-04 06:46:00Unknown Test Item Value Reference Range Comments Unknown (test code = 98172-9) 0.05 ng/mL Unknown Unknown F Ordering Physician UnknownLaboratory Bauqgao3876-39-38 06:46:00Identifier 22045- 6 Result Time 2018-06-04 06:46:00Unknown Test Item Value Reference Range Comments Unknown (test code = 2777-1) 2.8 mg/dL Unknown 2.5-5.0 F Ordering Physician UnknownLaboratory Wmsujhl4010-94-64 06:46:00Identifier 07390- 6 Result Time 2018-06-04 06:46:00Unknown Test Item Value Reference Range Comments Unknown (test code = 78135-6) 2.5 mg/dL Unknown 1.9-2.7 F Ordering Physician UnknownLaboratory Uvfjioj9131-50-70 10:48:00Identifier 60647- 6 Result Time 2018-06-03 10:48:00Unknown Test Item Value Reference Range Comments Unknown (test code = NullTestCode) 6.0 Unknown 5-9 F Ordering Physician UnknownLaboratory Koieobm7163-20-96 10:48:00Identifier 34527- 6 Result Time 2018-06-03 10:48:00Unknown Test Item Value Reference Range Comments Unknown (test code = 39111-9) 1.013 Unknown 1.010-1.030 F Ordering Physician UnknownLaboratory Ubnecyb2365-25-41 10:15:00Identifier 30949- 6 Result Time 2018-06-03 10:15:00Unknown Test Item Value Reference Range Comments Unknown (test code = 3016-3) 3.38 mcIU/mL Unknown 0.34-5.60 F Ordering Physician UnknownLaboratory Itvqvwx9856-40-37 10:15:00Identifier 10004- 6 Result Time 2018-06-03 10:15:00Unknown Test Item Value Reference Range Comments Unknown (test code = 03596-3) 1.14 Unknown 0.77-1.02 F Ordering Physician UnknownLaboratory Bqtvfbo1103-76-22 10:15:00Identifier 98139- 6 Result Time 2018-06-03 10:15:00Unknown Test Item Value Reference Range Comments Unknown (test code = 35406-9) 365 pg/mL Unknown Unknown F Ordering Physician UnknownLaboratory Tzubxfw8975-87-84 10:15:00Identifier 52281- 6 Result Time 2018-06-03 10:15:00Unknown Test Item Value Reference Range Comments Unknown (test code = 2885-2) 8.9 g/dL Unknown 6.4-8.9 F Ordering Physician UnknownLaboratory Jnflqkt6462-13-87 10:15:00Identifier 75223- 6 Result Time 2018-06-03 10:15:00Unknown Test Item Value Reference Range Comments Unknown (test code = 1975-2) 0.60 mg/dL Unknown 0.2-1.0 F Ordering Physician UnknownLaboratory Lfjblok8106-40-97 10:15:00Identifier 15827- 6 Result Time 2018-06-03 10:15:00Unknown Test Item Value Reference Range Comments Unknown (test code = NullTestCode) 4.9 g/dL Unknown 2-4 F Ordering Physician UnknownLaboratory Sorkocc8791-41-50 10:15:00Identifier 26754- 6 Result Time 2018-06-03 10:15:00Unknown Test Item Value Reference Range Comments Unknown (test code = 1988-5) 11.17 mg/L Unknown 0-8.00 F Ordering Physician UnknownLaboratory Ukuqrxb0675-66-30 10:15:00Identifier 09849- 6 Result Time 2018-06-03 10:15:00Unknown Test Item Value Reference Range Comments Unknown (test code = 1920-8) 25 U/L Unknown 13-39 F Ordering Physician UnknownLaboratory Jybjvpr2418-22-08 10:15:00Identifier 91207- 6 Result Time 2018-06-03 10:15:00Unknown Test Item Value Reference Range Comments Unknown (test code = 6768-6) 153 U/L Unknown 34-104 F Ordering Physician UnknownLaboratory Bhhfzzs4925-99-27 10:15:00Identifier 56525- 6 Result Time 2018-06-03 10:15:00Unknown Test Item Value Reference Range Comments Unknown (test code = 1759-0) 0.8 Unknown 1-3 F Ordering Physician UnknownLaboratory Myudwig2165-89-72 10:15:00Identifier 37377- 6 Result Time 2018-06-03 10:15:00Unknown Test Item Value Reference Range Comments Unknown (test code = 71411-0) 4.0 g/dL Unknown 3.2-5.2 F Ordering Physician UnknownLaboratory Lbeomim2921-56-08 10:15:00Identifier 37479- 6 Result Time 2018-06-03 10:15:00Unknown Test Item Value Reference Range Comments Unknown (test code = 1742-6) 13 U/L Unknown 7-52 F Ordering Physician UnknownLaboratory Svrxdhw4844-24-71 10:15:00Identifier 72119- 6 Result Time 2018-06-03 10:15:00Unknown Test Item Value Reference Range Comments Unknown (test code = 2524-7) 0.9 mmol/L Unknown 0.5-2.0 F Ordering Physician Unknown
--- OUTSIDE RECORDS SUMMARY | 2019-06-13 09:56 | XMS REPORT ---
:1930 Author Organization [facility] Care Team Providers Name Role Phone [...] Result Comments Laboratory Studies 2018-06-05 08:13:00 Identifier [id number] Result Time Unknown 2018-06-05 08:13:00 Test Item Value Reference Range Comments Unknown (test code = 2951-2) 136 mmol/L Unknown 135-145 F Ordering Physician UnknownLaboratory Vkyrglf5050-66-10 08:13:00Identifier 95171- 6 Result Time 2018-06-05 08:13:00Unknown Test Item Value Reference Range Comments Unknown (test code = 2823-3) 4.0 mmol/L Unknown 3.5-5.0 F Ordering Physician UnknownLaboratory Vgvpqbk4308-71-53 08:13:00Identifier 23382- 6 Result Time 2018-06-05 08:13:00Unknown Test Item Value Reference Range Comments Unknown (test code = 2345-7) 87 mg/dL Unknown 70-100 F Ordering Physician UnknownLaboratory Maxvqex8338-65-60 08:13:00Identifier 04564- 6 Result Time 2018-06-05 08:13:00Unknown Test Item Value Reference Range Comments Unknown (test code = 80050-4) 46.9 Unknown Unknown F Ordering Physician UnknownLaboratory Aqquhqx0716-80-70 08:13:00Identifier 03028- 6 Result Time 2018-06-05 08:13:00Unknown Test Item Value Reference Range Comments Unknown (test code = NullTestCode) 56.7 Unknown Unknown F Ordering Physician UnknownLaboratory Sktoczq2057-96-80 08:13:00Identifier 96432- 6 Result Time 2018-06-05 08:13:00Unknown Test Item Value Reference Range Comments Unknown (test code = 2160-0) 1.43 mg/dL Unknown 0.67-1.17 F Ordering Physician UnknownLaboratory Xsjpcil7047-39-43 08:13:00Identifier 26752- 6 Result Time 2018-06-05 08:13:00Unknown Test Item Value Reference Range Comments Unknown (test code = 2075-0) 104 mmol/L Unknown 101-111 F Ordering Physician UnknownLaboratory Sewzxrz5456-43-92 08:13:00Identifier 60974- 6 Result Time 2018-06-05 08:13:00Unknown Test Item Value Reference Range Comments Unknown (test code = 2028-9) 24 mmol/L Unknown 22-32 F Ordering Physician UnknownLaboratory Jjxycxg8409-87-14 08:13:00Identifier 02797- 6 Result Time 2018-06-05 08:13:00Unknown Test Item Value Reference Range Comments Unknown (test code = 03238-1) 9.0 mg/dL Unknown 8.6-10.3 F Ordering Physician UnknownLaboratory Rrherpx9972-40-07 08:13:00Identifier 56619- 6 Result Time 2018-06-05 08:13:00Unknown Test Item Value Reference Range Comments Unknown (test code = 3094-0) 24 mg/dL Unknown 6-24 F Ordering Physician UnknownLaboratory Kdbhnhs8515-68-99 08:13:00Identifier 12245- 6 Result Time 2018-06-05 08:13:00Unknown Test Item Value Reference Range Comments Unknown (test code = 3097-3) 16.8 Unknown 8-20 F Ordering Physician UnknownLaboratory Jjurqpt4716-02-50 08:13:00Identifier 29278- 6 Result Time 2018-06-05 08:13:00Unknown Test Item Value Reference Range Comments Unknown (test code = 95573-1) 8 mmol/L Unknown 2-11 F Ordering Physician UnknownLaboratory Oppacgi0432-60-54 08:13:00Identifier 35093- 6 Result Time 2018-06-05 08:13:00Unknown Test Item Value Reference Range Comments Unknown (test code = 41748-2) 27.4 10^3/uL Unknown 3.5-10.8 F Ordering Physician UnknownLaboratory Pxolvpf3134-70-73 08:13:00Identifier 36697- 6 Result Time 2018-06-05 08:13:00Unknown Test Item Value Reference Range Comments Unknown (test code = 788-0) 24 % Unknown 10.5-15 F Ordering Physician UnknownLaboratory Oejzves8929-64-85 08:13:00Identifier 03789- 6 Result Time 2018-06-05 08:13:00Unknown Test Item Value Reference Range Comments Unknown (test code = 789-8) 5.19 10^6 /uL Unknown 4.18-5.48 F Ordering Physician UnknownLaboratory Vbtgftz4407-21-55 08:13:00Identifier 99976- 6 Result Time 2018-06-05 08:13:00Unknown Test Item Value Reference Range Comments Unknown (test code = 777-3) 330 10^3/uL Unknown 150-450 F Ordering Physician UnknownLaboratory Qtnmbsk3856-73-61 08:13:00Identifier 48621- 6 Result Time 2018-06-05 08:13:00Unknown Test Item Value Reference Range Comments Unknown (test code = 81065-2) 0 Unknown Unknown F Ordering Physician UnknownLaboratory Itbgaai7372-02-35 08:13:00Identifier 48438- 6 Result Time 2018-06-05 08:13:00Unknown Test Item Value Reference Range Comments Unknown (test code = 771-6) 0 10^3/ul Unknown Unknown F Ordering Physician UnknownLaboratory Hntcwoo9160-49-29 08:13:00Identifier 91408- 6 Result Time 2018-06-05 08:13:00Unknown Test Item Value Reference Range Comments Unknown (test code = 770-8) 84.7 % Unknown Unknown F Ordering Physician UnknownLaboratory Vauocqa6915-02-81 08:13:00Identifier 80913- 6 Result Time 2018-06-05 08:13:00Unknown Test Item Value Reference Range Comments Unknown (test code = 5905-5) 8.6 % Unknown Unknown F Ordering Physician UnknownLaboratory Dqgwyge7839-47-66 08:13:00Identifier 96834- 6 Result Time 2018-06-05 08:13:00Unknown Test Item Value Reference Range Comments Unknown (test code = 57710-7) 8.6 fL Unknown 7.4-10.4 F Ordering Physician UnknownLaboratory Iyluguc3387-57-93 08:13:00Identifier 40599- 6 Result Time 2018-06-05 08:13:00Unknown Test Item Value Reference Range Comments Unknown (test code = 787-2) 78 fL Unknown 80-94 F Ordering Physician UnknownLaboratory Dlbvuow6295-61-97 08:13:00Identifier 74273- 6 Result Time 2018-06-05 08:13:00Unknown Test Item Value Reference Range Comments Unknown (test code = 786-4) 31 g/dL Unknown 31-36 F Ordering Physician UnknownLaboratory Usqhjhu7346-43-41 08:13:00Identifier 86020- 6 Result Time 2018-06-05 08:13:00Unknown Test Item Value Reference Range Comments Unknown (test code = 785-6) 24 pg Unknown 27-31 F Ordering Physician UnknownLaboratory Crhrvyz1868-71-94 08:13:00Identifier 93919- 6 Result Time 2018-06-05 08:13:00Unknown Test Item Value Reference Range Comments Unknown (test code = 736-9) 5.4 % Unknown Unknown F Ordering Physician UnknownLaboratory Zixqoak2323-14-33 08:13:00Identifier 42690- 6 Result Time 2018-06-05 08:13:00Unknown Test Item Value Reference Range Comments Unknown (test code = 718-7) 12.3 g/dL Unknown 14.0-18.0 F Ordering Physician UnknownLaboratory Xaaepnq9899-44-08 08:13:00Identifier 23867- 6 Result Time 2018-06-05 08:13:00Unknown Test Item Value Reference Range Comments Unknown (test code = 4544-3) 40 % Unknown 36-46 F Ordering Physician UnknownLaboratory Hfcgayr3275-40-20 08:13:00Identifier 58784- 6 Result Time 2018-06-05 08:13:00Unknown Test Item Value Reference Range Comments Unknown (test code = 713-8) 0.8 % Unknown Unknown F Ordering Physician UnknownLaboratory Ziavvpa8537-96-60 08:13:00Identifier 80035- 6 Result Time 2018-06-05 08:13:00Unknown Test Item Value Reference Range Comments Unknown (test code = 706-2) 0.5 % Unknown Unknown F Ordering Physician UnknownLaboratory Vwjhyor7749-54-51 08:13:00Identifier 18741- 6 Result Time 2018-06-05 08:13:00Unknown Test Item Value Reference Range Comments Unknown (test code = TST8180) 23.2 10^3/ul Unknown 1.5-7.7 F Ordering Physician UnknownLaboratory Nmrpsep3233-02-35 08:13:00Identifier 23191- 6 Result Time 2018-06-05 08:13:00Unknown Test Item Value Reference Range Comments Unknown (test code = 742-7) 2.4 10^3/ul Unknown 0-0.8 F Ordering Physician UnknownLaboratory Ddomkfb8546-49-36 08:13:00Identifier 03827- 6 Result Time 2018-06-05 08:13:00Unknown Test Item Value Reference Range Comments Unknown (test code = 731-0) 1.5 10^3/ul Unknown 1.0-4.8 F Ordering Physician UnknownLaboratory Uawudcm2305-70-46 08:13:00Identifier 38976- 6 Result Time 2018-06-05 08:13:00Unknown Test Item Value Reference Range Comments Unknown (test code = 711-2) 0.2 10^3/ul Unknown 0-0.6 F Ordering Physician UnknownLaboratory Fsyhmkb5647-81-85 08:13:00Identifier 60167- 6 Result Time 2018-06-05 08:13:00Unknown Test Item Value Reference Range Comments Unknown (test code = 704-7) 0.1 10^3/ul Unknown 0-0.2 F Ordering Physician UnknownLaboratory Pgivwgl2903-26-55 06:46:00Identifier 23433- 6 Result Time 2018-06-04 06:46:00Unknown Test Item Value Reference Range Comments Unknown (test code = 62146-5) 0.05 ng/mL Unknown Unknown F Ordering Physician UnknownLaboratory Apttdlp1220-94-83 06:46:00Identifier 76822- 6 Result Time 2018-06-04 06:46:00Unknown Test Item Value Reference Range Comments Unknown (test code = 2777-1) 2.8 mg/dL Unknown 2.5-5.0 F Ordering Physician UnknownLaboratory Pdgohoq0704-08-35 06:46:00Identifier 55279- 6 Result Time 2018-06-04 06:46:00Unknown Test Item Value Reference Range Comments Unknown (test code = 22623-7) 2.5 mg/dL Unknown 1.9-2.7 F Ordering Physician UnknownLaboratory Leepyyi1302-53-98 10:48:00Identifier 49944- 6 Result Time 2018-06-03 10:48:00Unknown Test Item Value Reference Range Comments Unknown (test code = NullTestCode) 6.0 Unknown 5-9 F Ordering Physician UnknownLaboratory Mmuopvv3887-54-96 10:48:00Identifier 74210- 6 Result Time 2018-06-03 10:48:00Unknown Test Item Value Reference Range Comments Unknown (test code = 62845-2) 1.013 Unknown 1.010-1.030 F Ordering Physician UnknownLaboratory Hmlnszy6193-80-93 10:15:00Identifier 34374- 6 Result Time 2018-06-03 10:15:00Unknown Test Item Value Reference Range Comments Unknown (test code = 3016-3) 3.38 mcIU/mL Unknown 0.34-5.60 F Ordering Physician UnknownLaboratory Yvjtypg4040-49-68 10:15:00Identifier 69876- 6 Result Time 2018-06-03 10:15:00Unknown Test Item Value Reference Range Comments Unknown (test code = 54196-4) 1.14 Unknown 0.77-1.02 F Ordering Physician UnknownLaboratory Ilzfjkq5305-66-40 10:15:00Identifier 91914- 6 Result Time 2018-06-03 10:15:00Unknown Test Item Value Reference Range Comments Unknown (test code = 58460-2) 365 pg/mL Unknown Unknown F Ordering Physician UnknownLaboratory Nbojlzl3086-26-59 10:15:00Identifier 13361- 6 Result Time 2018-06-03 10:15:00Unknown Test Item Value Reference Range Comments Unknown (test code = 2885-2) 8.9 g/dL Unknown 6.4-8.9 F Ordering Physician UnknownLaboratory Htiidwp1229-06-46 10:15:00Identifier 27045- 6 Result Time 2018-06-03 10:15:00Unknown Test Item Value Reference Range Comments Unknown (test code = 1975-2) 0.60 mg/dL Unknown 0.2-1.0 F Ordering Physician UnknownLaboratory Crfjcez6674-42-48 10:15:00Identifier 89832- 6 Result Time 2018-06-03 10:15:00Unknown Test Item Value Reference Range Comments Unknown (test code = NullTestCode) 4.9 g/dL Unknown 2-4 F Ordering Physician UnknownLaboratory Aebfwzu8845-70-52 10:15:00Identifier 91120- 6 Result Time 2018-06-03 10:15:00Unknown Test Item Value Reference Range Comments Unknown (test code = 1988-5) 11.17 mg/L Unknown 0-8.00 F Ordering Physician UnknownLaboratory Pihttvt5952-09-63 10:15:00Identifier 30590- 6 Result Time 2018-06-03 10:15:00Unknown Test Item Value Reference Range Comments Unknown (test code = 1920-8) 25 U/L Unknown 13-39 F Ordering Physician UnknownLaboratory Jaeiyco5656-64-13 10:15:00Identifier 63147- 6 Result Time 2018-06-03 10:15:00Unknown Test Item Value Reference Range Comments Unknown (test code = 6768-6) 153 U/L Unknown 34-104 F Ordering Physician UnknownLaboratory Rkeennh7423-76-03 10:15:00Identifier 42496- 6 Result Time 2018-06-03 10:15:00Unknown Test Item Value Reference Range Comments Unknown (test code = 1759-0) 0.8 Unknown 1-3 F Ordering Physician UnknownLaboratory Mxtnbxk4544-10-74 10:15:00Identifier 68246- 6 Result Time 2018-06-03 10:15:00Unknown Test Item Value Reference Range Comments Unknown (test code = 79996-2) 4.0 g/dL Unknown 3.2-5.2 F Ordering Physician UnknownLaboratory Fhrlmdw1522-58-69 10:15:00Identifier 12880- 6 Result Time 2018-06-03 10:15:00Unknown Test Item Value Reference Range Comments Unknown (test code = 1742-6) 13 U/L Unknown 7-52 F Ordering Physician UnknownLaboratory Immwfjy7612-79-89 10:15:00Identifier 76175- 6 Result Time 2018-06-03 10:15:00Unknown Test Item Value Reference Range Comments Unknown (test code = 2524-7) 0.9 mmol/L Unknown 0.5-2.0 F Ordering Physician Unknown
--- OUTSIDE RECORDS SUMMARY | 2019-06-13 09:56 | XMS REPORT ---
:1930 Author Organization [facility] Team Providers Name Role Phone [...] Result Comments Laboratory Studies 2018-06-05 08:13:00 Identifier [id number] Result Time Unknown 2018-06-05 08:13:00 Test Item Value Reference Range Comments Unknown (test code = 2951-2) 136 mmol/L Unknown 135-145 F Ordering Physician UnknownLaboratory Zcmcnzb3081-91-34 08:13:00Identifier 63906- 6 Result Time 2018-06-05 08:13:00Unknown Test Item Value Reference Range Comments Unknown (test code = 2823-3) 4.0 mmol/L Unknown 3.5-5.0 F Ordering Physician UnknownLaboratory Ojbtwob0801-62-35 08:13:00Identifier 77294- 6 Result Time 2018-06-05 08:13:00Unknown Test Item Value Reference Range Comments Unknown (test code = 2345-7) 87 mg/dL Unknown 70-100 F Ordering Physician UnknownLaboratory Cksdzdu6074-50-50 08:13:00Identifier 12002- 6 Result Time 2018-06-05 08:13:00Unknown Test Item Value Reference Range Comments Unknown (test code = 11278-1) 46.9 Unknown Unknown F Ordering Physician UnknownLaboratory Qerszkd9486-28-60 08:13:00Identifier 91224- 6 Result Time 2018-06-05 08:13:00Unknown Test Item Value Reference Range Comments Unknown (test code = NullTestCode) 56.7 Unknown Unknown F Ordering Physician UnknownLaboratory Yiaoiyd6723-80-89 08:13:00Identifier 88803- 6 Result Time 2018-06-05 08:13:00Unknown Test Item Value Reference Range Comments Unknown (test code = 2160-0) 1.43 mg/dL Unknown 0.67-1.17 F Ordering Physician UnknownLaboratory Lpypbwk9583-33-48 08:13:00Identifier 59926- 6 Result Time 2018-06-05 08:13:00Unknown Test Item Value Reference Range Comments Unknown (test code = 2075-0) 104 mmol/L Unknown 101-111 F Ordering Physician UnknownLaboratory Ngjybby6659-92-01 08:13:00Identifier 29651- 6 Result Time 2018-06-05 08:13:00Unknown Test Item Value Reference Range Comments Unknown (test code = 2028-9) 24 mmol/L Unknown 22-32 F Ordering Physician UnknownLaboratory Njxshiy7178-26-47 08:13:00Identifier 23186- 6 Result Time 2018-06-05 08:13:00Unknown Test Item Value Reference Range Comments Unknown (test code = 16581-5) 9.0 mg/dL Unknown 8.6-10.3 F Ordering Physician UnknownLaboratory Tllmoti0636-70-53 08:13:00Identifier 23665- 6 Result Time 2018-06-05 08:13:00Unknown Test Item Value Reference Range Comments Unknown (test code = 3094-0) 24 mg/dL Unknown 6-24 F Ordering Physician UnknownLaboratory Ojfjhzo9290-71-99 08:13:00Identifier 68260- 6 Result Time 2018-06-05 08:13:00Unknown Test Item Value Reference Range Comments Unknown (test code = 3097-3) 16.8 Unknown 8-20 F Ordering Physician UnknownLaboratory Bcvhyif1819-78-98 08:13:00Identifier 51537- 6 Result Time 2018-06-05 08:13:00Unknown Test Item Value Reference Range Comments Unknown (test code = 53023-7) 8 mmol/L Unknown 2-11 F Ordering Physician UnknownLaboratory Bseslfv9353-48-98 08:13:00Identifier 13644- 6 Result Time 2018-06-05 08:13:00Unknown Test Item Value Reference Range Comments Unknown (test code = 55187-9) 27.4 10^3/uL Unknown 3.5-10.8 F Ordering Physician UnknownLaboratory Rswumri6006-31-83 08:13:00Identifier 05268- 6 Result Time 2018-06-05 08:13:00Unknown Test Item Value Reference Range Comments Unknown (test code = 788-0) 24 % Unknown 10.5-15 F Ordering Physician UnknownLaboratory Avemcwk4711-23-88 08:13:00Identifier 56227- 6 Result Time 2018-06-05 08:13:00Unknown Test Item Value Reference Range Comments Unknown (test code = 789-8) 5.19 10^6 /uL Unknown 4.18-5.48 F Ordering Physician UnknownLaboratory Mtctmkl1553-58-32 08:13:00Identifier 51263- 6 Result Time 2018-06-05 08:13:00Unknown Test Item Value Reference Range Comments Unknown (test code = 777-3) 330 10^3/uL Unknown 150-450 F Ordering Physician UnknownLaboratory Srvdjnk5340-70-19 08:13:00Identifier 30372- 6 Result Time 2018-06-05 08:13:00Unknown Test Item Value Reference Range Comments Unknown (test code = 31758-6) 0 Unknown Unknown F Ordering Physician UnknownLaboratory Uomolrc2958-43-93 08:13:00Identifier 15165- 6 Result Time 2018-06-05 08:13:00Unknown Test Item Value Reference Range Comments Unknown (test code = 771-6) 0 10^3/ul Unknown Unknown F Ordering Physician UnknownLaboratory Fogcong4966-76-70 08:13:00Identifier 30692- 6 Result Time 2018-06-05 08:13:00Unknown Test Item Value Reference Range Comments Unknown (test code = 770-8) 84.7 % Unknown Unknown F Ordering Physician UnknownLaboratory Ohentoa5062-69-96 08:13:00Identifier 50664- 6 Result Time 2018-06-05 08:13:00Unknown Test Item Value Reference Range Comments Unknown (test code = 5905-5) 8.6 % Unknown Unknown F Ordering Physician UnknownLaboratory Bornzcd5432-10-45 08:13:00Identifier 11717- 6 Result Time 2018-06-05 08:13:00Unknown Test Item Value Reference Range Comments Unknown (test code = 11825-6) 8.6 fL Unknown 7.4-10.4 F Ordering Physician UnknownLaboratory Xfrvupp4414-55-00 08:13:00Identifier 99008- 6 Result Time 2018-06-05 08:13:00Unknown Test Item Value Reference Range Comments Unknown (test code = 787-2) 78 fL Unknown 80-94 F Ordering Physician UnknownLaboratory Ipapykg5430-56-53 08:13:00Identifier 31485- 6 Result Time 2018-06-05 08:13:00Unknown Test Item Value Reference Range Comments Unknown (test code = 786-4) 31 g/dL Unknown 31-36 F Ordering Physician UnknownLaboratory Cmafbkf4884-76-28 08:13:00Identifier 23447- 6 Result Time 2018-06-05 08:13:00Unknown Test Item Value Reference Range Comments Unknown (test code = 785-6) 24 pg Unknown 27-31 F Ordering Physician UnknownLaboratory Brxlkxj7381-29-29 08:13:00Identifier 85808- 6 Result Time 2018-06-05 08:13:00Unknown Test Item Value Reference Range Comments Unknown (test code = 736-9) 5.4 % Unknown Unknown F Ordering Physician UnknownLaboratory Sljthlr0202-64-05 08:13:00Identifier 80001- 6 Result Time 2018-06-05 08:13:00Unknown Test Item Value Reference Range Comments Unknown (test code = 718-7) 12.3 g/dL Unknown 14.0-18.0 F Ordering Physician UnknownLaboratory Jhahxmr9744-09-22 08:13:00Identifier 36871- 6 Result Time 2018-06-05 08:13:00Unknown Test Item Value Reference Range Comments Unknown (test code = 4544-3) 40 % Unknown 36-46 F Ordering Physician UnknownLaboratory Rzeujpk5361-61-81 08:13:00Identifier 62177- 6 Result Time 2018-06-05 08:13:00Unknown Test Item Value Reference Range Comments Unknown (test code = 713-8) 0.8 % Unknown Unknown F Ordering Physician UnknownLaboratory Jibqoro1098-94-76 08:13:00Identifier 67629- 6 Result Time 2018-06-05 08:13:00Unknown Test Item Value Reference Range Comments Unknown (test code = 706-2) 0.5 % Unknown Unknown F Ordering Physician UnknownLaboratory Zsxolhf7111-70-05 08:13:00Identifier 71844- 6 Result Time 2018-06-05 08:13:00Unknown Test Item Value Reference Range Comments Unknown (test code = JMQ2351) 23.2 10^3/ul Unknown 1.5-7.7 F Ordering Physician UnknownLaboratory Aqmkufn5000-36-29 08:13:00Identifier 42683- 6 Result Time 2018-06-05 08:13:00Unknown Test Item Value Reference Range Comments Unknown (test code = 742-7) 2.4 10^3/ul Unknown 0-0.8 F Ordering Physician UnknownLaboratory Bufgbtp5081-72-78 08:13:00Identifier 19854- 6 Result Time 2018-06-05 08:13:00Unknown Test Item Value Reference Range Comments Unknown (test code = 731-0) 1.5 10^3/ul Unknown 1.0-4.8 F Ordering Physician UnknownLaboratory Vlfimyw0139-85-50 08:13:00Identifier 49296- 6 Result Time 2018-06-05 08:13:00Unknown Test Item Value Reference Range Comments Unknown (test code = 711-2) 0.2 10^3/ul Unknown 0-0.6 F Ordering Physician UnknownLaboratory Zbjkiov2960-36-42 08:13:00Identifier 44946- 6 Result Time 2018-06-05 08:13:00Unknown Test Item Value Reference Range Comments Unknown (test code = 704-7) 0.1 10^3/ul Unknown 0-0.2 F Ordering Physician UnknownLaboratory Mqmkylo4138-73-82 06:46:00Identifier 10023- 6 Result Time 2018-06-04 06:46:00Unknown Test Item Value Reference Range Comments Unknown (test code = 72222-6) 0.05 ng/mL Unknown Unknown F Ordering Physician UnknownLaboratory Ckmqmvc3490-25-38 06:46:00Identifier 46734- 6 Result Time 2018-06-04 06:46:00Unknown Test Item Value Reference Range Comments Unknown (test code = 2777-1) 2.8 mg/dL Unknown 2.5-5.0 F Ordering Physician UnknownLaboratory Slmwsth5078-92-77 06:46:00Identifier 20107- 6 Result Time 2018-06-04 06:46:00Unknown Test Item Value Reference Range Comments Unknown (test code = 09673-7) 2.5 mg/dL Unknown 1.9-2.7 F Ordering Physician UnknownLaboratory Cafigxa0171-25-69 10:48:00Identifier 68129- 6 Result Time 2018-06-03 10:48:00Unknown Test Item Value Reference Range Comments Unknown (test code = NullTestCode) 6.0 Unknown 5-9 F Ordering Physician UnknownLaboratory Flrdcby6204-12-70 10:48:00Identifier 55662- 6 Result Time 2018-06-03 10:48:00Unknown Test Item Value Reference Range Comments Unknown (test code = 50065-7) 1.013 Unknown 1.010-1.030 F Ordering Physician UnknownLaboratory Jmjxlqk6808-81-27 10:15:00Identifier 96620- 6 Result Time 2018-06-03 10:15:00Unknown Test Item Value Reference Range Comments Unknown (test code = 3016-3) 3.38 mcIU/mL Unknown 0.34-5.60 F Ordering Physician UnknownLaboratory Vxdzuse3935-44-72 10:15:00Identifier 09515- 6 Result Time 2018-06-03 10:15:00Unknown Test Item Value Reference Range Comments Unknown (test code = 90955-3) 1.14 Unknown 0.77-1.02 F Ordering Physician UnknownLaboratory Lcymspf6989-59-83 10:15:00Identifier 32613- 6 Result Time 2018-06-03 10:15:00Unknown Test Item Value Reference Range Comments Unknown (test code = 84688-5) 365 pg/mL Unknown Unknown F Ordering Physician UnknownLaboratory Xswnoog5304-32-98 10:15:00Identifier 72496- 6 Result Time 2018-06-03 10:15:00Unknown Test Item Value Reference Range Comments Unknown (test code = 2885-2) 8.9 g/dL Unknown 6.4-8.9 F Ordering Physician UnknownLaboratory Vdhsmgn7002-42-42 10:15:00Identifier 43574- 6 Result Time 2018-06-03 10:15:00Unknown Test Item Value Reference Range Comments Unknown (test code = 1975-2) 0.60 mg/dL Unknown 0.2-1.0 F Ordering Physician UnknownLaboratory Ragxdog0044-24-70 10:15:00Identifier 35038- 6 Result Time 2018-06-03 10:15:00Unknown Test Item Value Reference Range Comments Unknown (test code = NullTestCode) 4.9 g/dL Unknown 2-4 F Ordering Physician UnknownLaboratory Ulkfuwz2994-16-20 10:15:00Identifier 46485- 6 Result Time 2018-06-03 10:15:00Unknown Test Item Value Reference Range Comments Unknown (test code = 1988-5) 11.17 mg/L Unknown 0-8.00 F Ordering Physician UnknownLaboratory Eskywux5549-73-16 10:15:00Identifier 60572- 6 Result Time 2018-06-03 10:15:00Unknown Test Item Value Reference Range Comments Unknown (test code = 1920-8) 25 U/L Unknown 13-39 F Ordering Physician UnknownLaboratory Jdoovco9588-18-63 10:15:00Identifier 14598- 6 Result Time 2018-06-03 10:15:00Unknown Test Item Value Reference Range Comments Unknown (test code = 6768-6) 153 U/L Unknown 34-104 F Ordering Physician UnknownLaboratory Azrpevt9576-72-39 10:15:00Identifier 03405- 6 Result Time 2018-06-03 10:15:00Unknown Test Item Value Reference Range Comments Unknown (test code = 1759-0) 0.8 Unknown 1-3 F Ordering Physician UnknownLaboratory Izcdudf1627-56-82 10:15:00Identifier 35393- 6 Result Time 2018-06-03 10:15:00Unknown Test Item Value Reference Range Comments Unknown (test code = 95521-3) 4.0 g/dL Unknown 3.2-5.2 F Ordering Physician UnknownLaboratory Xeppjik9240-59-74 10:15:00Identifier 57480- 6 Result Time 2018-06-03 10:15:00Unknown Test Item Value Reference Range Comments Unknown (test code = 1742-6) 13 U/L Unknown 7-52 F Ordering Physician UnknownLaboratory Ujttppx1329-63-22 10:15:00Identifier 94164- 6 Result Time 2018-06-03 10:15:00Unknown Test Item Value Reference Range Comments Unknown (test code = 2524-7) 0.9 mmol/L Unknown 0.5-2.0 F Ordering Physician Unknown
--- OUTSIDE RECORDS SUMMARY | 2019-06-13 09:56 | XMS REPORT ---
:1930 Author Organization [facility] Team Providers Name Role Phone Unavailable [...] Result Comments Laboratory Studies 2018-06-05 08:13:00 Identifier [id number] Result Time Unknown 2018-06-05 08:13:00 Test Item Value Reference Range Comments Unknown (test code = 2951-2) 136 mmol/L Unknown 135-145 F Ordering Physician UnknownLaboratory Ellqduz9512-48-03 08:13:00Identifier 21790- 6 Result Time 2018-06-05 08:13:00Unknown Test Item Value Reference Range Comments Unknown (test code = 2823-3) 4.0 mmol/L Unknown 3.5-5.0 F Ordering Physician UnknownLaboratory Emcxytg0243-06-82 08:13:00Identifier 25281- 6 Result Time 2018-06-05 08:13:00Unknown Test Item Value Reference Range Comments Unknown (test code = 2345-7) 87 mg/dL Unknown 70-100 F Ordering Physician UnknownLaboratory Otzkjlm1607-26-13 08:13:00Identifier 06009- 6 Result Time 2018-06-05 08:13:00Unknown Test Item Value Reference Range Comments Unknown (test code = 77100-1) 46.9 Unknown Unknown F Ordering Physician UnknownLaboratory Qabafua5611-34-63 08:13:00Identifier 18907- 6 Result Time 2018-06-05 08:13:00Unknown Test Item Value Reference Range Comments Unknown (test code = NullTestCode) 56.7 Unknown Unknown F Ordering Physician UnknownLaboratory Phkqweb3521-63-32 08:13:00Identifier 62114- 6 Result Time 2018-06-05 08:13:00Unknown Test Item Value Reference Range Comments Unknown (test code = 2160-0) 1.43 mg/dL Unknown 0.67-1.17 F Ordering Physician UnknownLaboratory Dsmhiac2432-88-95 08:13:00Identifier 13529- 6 Result Time 2018-06-05 08:13:00Unknown Test Item Value Reference Range Comments Unknown (test code = 2075-0) 104 mmol/L Unknown 101-111 F Ordering Physician UnknownLaboratory Pbhdztu6142-98-87 08:13:00Identifier 06414- 6 Result Time 2018-06-05 08:13:00Unknown Test Item Value Reference Range Comments Unknown (test code = 2028-9) 24 mmol/L Unknown 22-32 F Ordering Physician UnknownLaboratory Tchnbdt8369-41-33 08:13:00Identifier 14353- 6 Result Time 2018-06-05 08:13:00Unknown Test Item Value Reference Range Comments Unknown (test code = 46299-2) 9.0 mg/dL Unknown 8.6-10.3 F Ordering Physician UnknownLaboratory Ismcobx9604-37-69 08:13:00Identifier 57369- 6 Result Time 2018-06-05 08:13:00Unknown Test Item Value Reference Range Comments Unknown (test code = 3094-0) 24 mg/dL Unknown 6-24 F Ordering Physician UnknownLaboratory Sbifykv1790-78-67 08:13:00Identifier 45558- 6 Result Time 2018-06-05 08:13:00Unknown Test Item Value Reference Range Comments Unknown (test code = 3097-3) 16.8 Unknown 8-20 F Ordering Physician UnknownLaboratory Mhjfeoo9784-25-94 08:13:00Identifier 28578- 6 Result Time 2018-06-05 08:13:00Unknown Test Item Value Reference Range Comments Unknown (test code = 06977-7) 8 mmol/L Unknown 2-11 F Ordering Physician UnknownLaboratory Foqfkeh4604-96-33 08:13:00Identifier 14466- 6 Result Time 2018-06-05 08:13:00Unknown Test Item Value Reference Range Comments Unknown (test code = 31044-3) 27.4 10^3/uL Unknown 3.5-10.8 F Ordering Physician UnknownLaboratory Cuvhgdo8715-08-32 08:13:00Identifier 15953- 6 Result Time 2018-06-05 08:13:00Unknown Test Item Value Reference Range Comments Unknown (test code = 788-0) 24 % Unknown 10.5-15 F Ordering Physician UnknownLaboratory Chskkir7862-33-24 08:13:00Identifier 19730- 6 Result Time 2018-06-05 08:13:00Unknown Test Item Value Reference Range Comments Unknown (test code = 789-8) 5.19 10^6 /uL Unknown 4.18-5.48 F Ordering Physician UnknownLaboratory Rbheetv6723-10-98 08:13:00Identifier 46396- 6 Result Time 2018-06-05 08:13:00Unknown Test Item Value Reference Range Comments Unknown (test code = 777-3) 330 10^3/uL Unknown 150-450 F Ordering Physician UnknownLaboratory Vzpcdza5075-62-18 08:13:00Identifier 83251- 6 Result Time 2018-06-05 08:13:00Unknown Test Item Value Reference Range Comments Unknown (test code = 42048-7) 0 Unknown Unknown F Ordering Physician UnknownLaboratory Gghrnxk0419-88-00 08:13:00Identifier 00828- 6 Result Time 2018-06-05 08:13:00Unknown Test Item Value Reference Range Comments Unknown (test code = 771-6) 0 10^3/ul Unknown Unknown F Ordering Physician UnknownLaboratory Vkeefcw6590-51-18 08:13:00Identifier 01374- 6 Result Time 2018-06-05 08:13:00Unknown Test Item Value Reference Range Comments Unknown (test code = 770-8) 84.7 % Unknown Unknown F Ordering Physician UnknownLaboratory Mamdjdp0589-46-25 08:13:00Identifier 96043- 6 Result Time 2018-06-05 08:13:00Unknown Test Item Value Reference Range Comments Unknown (test code = 5905-5) 8.6 % Unknown Unknown F Ordering Physician UnknownLaboratory Fuihkix3771-65-48 08:13:00Identifier 79156- 6 Result Time 2018-06-05 08:13:00Unknown Test Item Value Reference Range Comments Unknown (test code = 37890-1) 8.6 fL Unknown 7.4-10.4 F Ordering Physician UnknownLaboratory Boxzikx0102-08-41 08:13:00Identifier 81659- 6 Result Time 2018-06-05 08:13:00Unknown Test Item Value Reference Range Comments Unknown (test code = 787-2) 78 fL Unknown 80-94 F Ordering Physician UnknownLaboratory Gtnkrni7607-78-29 08:13:00Identifier 91109- 6 Result Time 2018-06-05 08:13:00Unknown Test Item Value Reference Range Comments Unknown (test code = 786-4) 31 g/dL Unknown 31-36 F Ordering Physician UnknownLaboratory Buuzfri9978-21-92 08:13:00Identifier 86529- 6 Result Time 2018-06-05 08:13:00Unknown Test Item Value Reference Range Comments Unknown (test code = 785-6) 24 pg Unknown 27-31 F Ordering Physician UnknownLaboratory Qercijc5525-10-63 08:13:00Identifier 82931- 6 Result Time 2018-06-05 08:13:00Unknown Test Item Value Reference Range Comments Unknown (test code = 736-9) 5.4 % Unknown Unknown F Ordering Physician UnknownLaboratory Pabddlu0923-81-01 08:13:00Identifier 40497- 6 Result Time 2018-06-05 08:13:00Unknown Test Item Value Reference Range Comments Unknown (test code = 718-7) 12.3 g/dL Unknown 14.0-18.0 F Ordering Physician UnknownLaboratory Snrhuws2034-54-70 08:13:00Identifier 31952- 6 Result Time 2018-06-05 08:13:00Unknown Test Item Value Reference Range Comments Unknown (test code = 4544-3) 40 % Unknown 36-46 F Ordering Physician UnknownLaboratory Djwusgu9706-36-07 08:13:00Identifier 45152- 6 Result Time 2018-06-05 08:13:00Unknown Test Item Value Reference Range Comments Unknown (test code = 713-8) 0.8 % Unknown Unknown F Ordering Physician UnknownLaboratory Uhbmoew8609-02-94 08:13:00Identifier 49910- 6 Result Time 2018-06-05 08:13:00Unknown Test Item Value Reference Range Comments Unknown (test code = 706-2) 0.5 % Unknown Unknown F Ordering Physician UnknownLaboratory Hktutfw3421-52-95 08:13:00Identifier 70337- 6 Result Time 2018-06-05 08:13:00Unknown Test Item Value Reference Range Comments Unknown (test code = DPY7460) 23.2 10^3/ul Unknown 1.5-7.7 F Ordering Physician UnknownLaboratory Jbgwguo2135-21-95 08:13:00Identifier 36496- 6 Result Time 2018-06-05 08:13:00Unknown Test Item Value Reference Range Comments Unknown (test code = 742-7) 2.4 10^3/ul Unknown 0-0.8 F Ordering Physician UnknownLaboratory Ktgurqt1966-35-95 08:13:00Identifier 86149- 6 Result Time 2018-06-05 08:13:00Unknown Test Item Value Reference Range Comments Unknown (test code = 731-0) 1.5 10^3/ul Unknown 1.0-4.8 F Ordering Physician UnknownLaboratory Xqhjdaw9624-13-54 08:13:00Identifier 50157- 6 Result Time 2018-06-05 08:13:00Unknown Test Item Value Reference Range Comments Unknown (test code = 711-2) 0.2 10^3/ul Unknown 0-0.6 F Ordering Physician UnknownLaboratory Dxjoqlt1020-02-14 08:13:00Identifier 18508- 6 Result Time 2018-06-05 08:13:00Unknown Test Item Value Reference Range Comments Unknown (test code = 704-7) 0.1 10^3/ul Unknown 0-0.2 F Ordering Physician UnknownLaboratory Ivwkplw5538-85-58 06:46:00Identifier 79644- 6 Result Time 2018-06-04 06:46:00Unknown Test Item Value Reference Range Comments Unknown (test code = 02453-9) 0.05 ng/mL Unknown Unknown F Ordering Physician UnknownLaboratory Tmqwezy5709-34-65 06:46:00Identifier 29256- 6 Result Time 2018-06-04 06:46:00Unknown Test Item Value Reference Range Comments Unknown (test code = 2777-1) 2.8 mg/dL Unknown 2.5-5.0 F Ordering Physician UnknownLaboratory Ppcswpx2571-04-47 06:46:00Identifier 95160- 6 Result Time 2018-06-04 06:46:00Unknown Test Item Value Reference Range Comments Unknown (test code = 88076-0) 2.5 mg/dL Unknown 1.9-2.7 F Ordering Physician UnknownLaboratory Rctvawb0754-97-16 10:48:00Identifier 17791- 6 Result Time 2018-06-03 10:48:00Unknown Test Item Value Reference Range Comments Unknown (test code = NullTestCode) 6.0 Unknown 5-9 F Ordering Physician UnknownLaboratory Wwduedp2111-99-54 10:48:00Identifier 00682- 6 Result Time 2018-06-03 10:48:00Unknown Test Item Value Reference Range Comments Unknown (test code = 49349-5) 1.013 Unknown 1.010-1.030 F Ordering Physician UnknownLaboratory Zwefoah6977-15-97 10:15:00Identifier 62216- 6 Result Time 2018-06-03 10:15:00Unknown Test Item Value Reference Range Comments Unknown (test code = 3016-3) 3.38 mcIU/mL Unknown 0.34-5.60 F Ordering Physician UnknownLaboratory Vcxrbek0791-44-85 10:15:00Identifier 54650- 6 Result Time 2018-06-03 10:15:00Unknown Test Item Value Reference Range Comments Unknown (test code = 84386-6) 1.14 Unknown 0.77-1.02 F Ordering Physician UnknownLaboratory Cmebkuj5078-96-21 10:15:00Identifier 87079- 6 Result Time 2018-06-03 10:15:00Unknown Test Item Value Reference Range Comments Unknown (test code = 74561-2) 365 pg/mL Unknown Unknown F Ordering Physician UnknownLaboratory Nacizvy8260-54-43 10:15:00Identifier 04376- 6 Result Time 2018-06-03 10:15:00Unknown Test Item Value Reference Range Comments Unknown (test code = 2885-2) 8.9 g/dL Unknown 6.4-8.9 F Ordering Physician UnknownLaboratory Zsbfgeb8988-77-81 10:15:00Identifier 04056- 6 Result Time 2018-06-03 10:15:00Unknown Test Item Value Reference Range Comments Unknown (test code = 1975-2) 0.60 mg/dL Unknown 0.2-1.0 F Ordering Physician UnknownLaboratory Jazqfyh1648-22-41 10:15:00Identifier 79647- 6 Result Time 2018-06-03 10:15:00Unknown Test Item Value Reference Range Comments Unknown (test code = NullTestCode) 4.9 g/dL Unknown 2-4 F Ordering Physician UnknownLaboratory Njaisdy2103-78-99 10:15:00Identifier 25528- 6 Result Time 2018-06-03 10:15:00Unknown Test Item Value Reference Range Comments Unknown (test code = 1988-5) 11.17 mg/L Unknown 0-8.00 F Ordering Physician UnknownLaboratory Mtncweu3914-72-55 10:15:00Identifier 04637- 6 Result Time 2018-06-03 10:15:00Unknown Test Item Value Reference Range Comments Unknown (test code = 1920-8) 25 U/L Unknown 13-39 F Ordering Physician UnknownLaboratory Fftwoqq9903-05-03 10:15:00Identifier 28775- 6 Result Time 2018-06-03 10:15:00Unknown Test Item Value Reference Range Comments Unknown (test code = 6768-6) 153 U/L Unknown 34-104 F Ordering Physician UnknownLaboratory Doeulak8308-32-88 10:15:00Identifier 23348- 6 Result Time 2018-06-03 10:15:00Unknown Test Item Value Reference Range Comments Unknown (test code = 1759-0) 0.8 Unknown 1-3 F Ordering Physician UnknownLaboratory Zcwgtly3283-02-30 10:15:00Identifier 25299- 6 Result Time 2018-06-03 10:15:00Unknown Test Item Value Reference Range Comments Unknown (test code = 35065-8) 4.0 g/dL Unknown 3.2-5.2 F Ordering Physician UnknownLaboratory Gaiefxa0201-24-62 10:15:00Identifier 82572- 6 Result Time 2018-06-03 10:15:00Unknown Test Item Value Reference Range Comments Unknown (test code = 1742-6) 13 U/L Unknown 7-52 F Ordering Physician UnknownLaboratory Lkgxtop7370-76-87 10:15:00Identifier 81344- 6 Result Time 2018-06-03 10:15:00Unknown Test Item Value Reference Range Comments Unknown (test code = 2524-7) 0.9 mmol/L Unknown 0.5-2.0 F Ordering Physician Unknown
--- OUTSIDE RECORDS SUMMARY | 2019-06-13 09:56 | XMS REPORT ---
:1930 Author Organization [facility] Care Team Providers Name Role [...] Result Comments Laboratory Studies 2018-06-05 08:13:00 Identifier [id number] Result Time Unknown 2018-06-05 08:13:00 Test Item Value Reference Range Comments Unknown (test code = 2951-2) 136 mmol/L Unknown 135-145 F Ordering Physician UnknownLaboratory Wjqfixh7295-82-05 08:13:00Identifier 97504- 6 Result Time 2018-06-05 08:13:00Unknown Test Item Value Reference Range Comments Unknown (test code = 2823-3) 4.0 mmol/L Unknown 3.5-5.0 F Ordering Physician UnknownLaboratory Gtbbbth9296-15-03 08:13:00Identifier 43401- 6 Result Time 2018-06-05 08:13:00Unknown Test Item Value Reference Range Comments Unknown (test code = 2345-7) 87 mg/dL Unknown 70-100 F Ordering Physician UnknownLaboratory Blyfcqc5713-54-19 08:13:00Identifier 95370- 6 Result Time 2018-06-05 08:13:00Unknown Test Item Value Reference Range Comments Unknown (test code = 03234-1) 46.9 Unknown Unknown F Ordering Physician UnknownLaboratory Jpnzkka9047-50-82 08:13:00Identifier 04898- 6 Result Time 2018-06-05 08:13:00Unknown Test Item Value Reference Range Comments Unknown (test code = NullTestCode) 56.7 Unknown Unknown F Ordering Physician UnknownLaboratory Dpagilg5311-95-82 08:13:00Identifier 39306- 6 Result Time 2018-06-05 08:13:00Unknown Test Item Value Reference Range Comments Unknown (test code = 2160-0) 1.43 mg/dL Unknown 0.67-1.17 F Ordering Physician UnknownLaboratory Wpgswey1106-72-82 08:13:00Identifier 58578- 6 Result Time 2018-06-05 08:13:00Unknown Test Item Value Reference Range Comments Unknown (test code = 2075-0) 104 mmol/L Unknown 101-111 F Ordering Physician UnknownLaboratory Qeupiqq5702-81-60 08:13:00Identifier 57765- 6 Result Time 2018-06-05 08:13:00Unknown Test Item Value Reference Range Comments Unknown (test code = 2028-9) 24 mmol/L Unknown 22-32 F Ordering Physician UnknownLaboratory Eqdqabg4903-05-90 08:13:00Identifier 43582- 6 Result Time 2018-06-05 08:13:00Unknown Test Item Value Reference Range Comments Unknown (test code = 18601-3) 9.0 mg/dL Unknown 8.6-10.3 F Ordering Physician UnknownLaboratory Gahelig9018-54-22 08:13:00Identifier 30381- 6 Result Time 2018-06-05 08:13:00Unknown Test Item Value Reference Range Comments Unknown (test code = 3094-0) 24 mg/dL Unknown 6-24 F Ordering Physician UnknownLaboratory Jyyzxbm2642-16-56 08:13:00Identifier 96786- 6 Result Time 2018-06-05 08:13:00Unknown Test Item Value Reference Range Comments Unknown (test code = 3097-3) 16.8 Unknown 8-20 F Ordering Physician UnknownLaboratory Necjedw9771-36-93 08:13:00Identifier 49040- 6 Result Time 2018-06-05 08:13:00Unknown Test Item Value Reference Range Comments Unknown (test code = 58391-1) 8 mmol/L Unknown 2-11 F Ordering Physician UnknownLaboratory Sllrddt6542-12-38 08:13:00Identifier 77796- 6 Result Time 2018-06-05 08:13:00Unknown Test Item Value Reference Range Comments Unknown (test code = 50436-2) 27.4 10^3/uL Unknown 3.5-10.8 F Ordering Physician UnknownLaboratory Xtnaetw7561-12-05 08:13:00Identifier 44660- 6 Result Time 2018-06-05 08:13:00Unknown Test Item Value Reference Range Comments Unknown (test code = 788-0) 24 % Unknown 10.5-15 F Ordering Physician UnknownLaboratory Uxnnplc7689-00-90 08:13:00Identifier 36539- 6 Result Time 2018-06-05 08:13:00Unknown Test Item Value Reference Range Comments Unknown (test code = 789-8) 5.19 10^6 /uL Unknown 4.18-5.48 F Ordering Physician UnknownLaboratory Lyxfjhq3089-03-40 08:13:00Identifier 41834- 6 Result Time 2018-06-05 08:13:00Unknown Test Item Value Reference Range Comments Unknown (test code = 777-3) 330 10^3/uL Unknown 150-450 F Ordering Physician UnknownLaboratory Filcwfv0691-49-37 08:13:00Identifier 79481- 6 Result Time 2018-06-05 08:13:00Unknown Test Item Value Reference Range Comments Unknown (test code = 03083-9) 0 Unknown Unknown F Ordering Physician UnknownLaboratory Iclcllk5819-45-18 08:13:00Identifier 18821- 6 Result Time 2018-06-05 08:13:00Unknown Test Item Value Reference Range Comments Unknown (test code = 771-6) 0 10^3/ul Unknown Unknown F Ordering Physician UnknownLaboratory Ndbfkge3433-48-03 08:13:00Identifier 75860- 6 Result Time 2018-06-05 08:13:00Unknown Test Item Value Reference Range Comments Unknown (test code = 770-8) 84.7 % Unknown Unknown F Ordering Physician UnknownLaboratory Tmjeipi1851-41-26 08:13:00Identifier 74336- 6 Result Time 2018-06-05 08:13:00Unknown Test Item Value Reference Range Comments Unknown (test code = 5905-5) 8.6 % Unknown Unknown F Ordering Physician UnknownLaboratory Dgbhevw8822-94-55 08:13:00Identifier 65810- 6 Result Time 2018-06-05 08:13:00Unknown Test Item Value Reference Range Comments Unknown (test code = 65000-8) 8.6 fL Unknown 7.4-10.4 F Ordering Physician UnknownLaboratory Gyvnqkd2397-06-50 08:13:00Identifier 57000- 6 Result Time 2018-06-05 08:13:00Unknown Test Item Value Reference Range Comments Unknown (test code = 787-2) 78 fL Unknown 80-94 F Ordering Physician UnknownLaboratory Uomgqyj3897-98-47 08:13:00Identifier 38073- 6 Result Time 2018-06-05 08:13:00Unknown Test Item Value Reference Range Comments Unknown (test code = 786-4) 31 g/dL Unknown 31-36 F Ordering Physician UnknownLaboratory Csjxgml0229-45-51 08:13:00Identifier 05391- 6 Result Time 2018-06-05 08:13:00Unknown Test Item Value Reference Range Comments Unknown (test code = 785-6) 24 pg Unknown 27-31 F Ordering Physician UnknownLaboratory Jbhcgph3599-94-45 08:13:00Identifier 52182- 6 Result Time 2018-06-05 08:13:00Unknown Test Item Value Reference Range Comments Unknown (test code = 736-9) 5.4 % Unknown Unknown F Ordering Physician UnknownLaboratory Eyxgatz9602-24-41 08:13:00Identifier 64053- 6 Result Time 2018-06-05 08:13:00Unknown Test Item Value Reference Range Comments Unknown (test code = 718-7) 12.3 g/dL Unknown 14.0-18.0 F Ordering Physician UnknownLaboratory Xvdmuua0667-58-19 08:13:00Identifier 48676- 6 Result Time 2018-06-05 08:13:00Unknown Test Item Value Reference Range Comments Unknown (test code = 4544-3) 40 % Unknown 36-46 F Ordering Physician UnknownLaboratory Ftncnps9811-18-20 08:13:00Identifier 81457- 6 Result Time 2018-06-05 08:13:00Unknown Test Item Value Reference Range Comments Unknown (test code = 713-8) 0.8 % Unknown Unknown F Ordering Physician UnknownLaboratory Vqyublw6167-20-51 08:13:00Identifier 32606- 6 Result Time 2018-06-05 08:13:00Unknown Test Item Value Reference Range Comments Unknown (test code = 706-2) 0.5 % Unknown Unknown F Ordering Physician UnknownLaboratory Wvgilnn5879-36-54 08:13:00Identifier 44400- 6 Result Time 2018-06-05 08:13:00Unknown Test Item Value Reference Range Comments Unknown (test code = SGG3246) 23.2 10^3/ul Unknown 1.5-7.7 F Ordering Physician UnknownLaboratory Mpsprvf0286-84-93 08:13:00Identifier 17115- 6 Result Time 2018-06-05 08:13:00Unknown Test Item Value Reference Range Comments Unknown (test code = 742-7) 2.4 10^3/ul Unknown 0-0.8 F Ordering Physician UnknownLaboratory Jlddxed3558-08-35 08:13:00Identifier 19076- 6 Result Time 2018-06-05 08:13:00Unknown Test Item Value Reference Range Comments Unknown (test code = 731-0) 1.5 10^3/ul Unknown 1.0-4.8 F Ordering Physician UnknownLaboratory Npbtpmb9627-72-94 08:13:00Identifier 39000- 6 Result Time 2018-06-05 08:13:00Unknown Test Item Value Reference Range Comments Unknown (test code = 711-2) 0.2 10^3/ul Unknown 0-0.6 F Ordering Physician UnknownLaboratory Xonttqr5074-91-22 08:13:00Identifier 42144- 6 Result Time 2018-06-05 08:13:00Unknown Test Item Value Reference Range Comments Unknown (test code = 704-7) 0.1 10^3/ul Unknown 0-0.2 F Ordering Physician UnknownLaboratory Gjgexhx3561-90-30 06:46:00Identifier 08575- 6 Result Time 2018-06-04 06:46:00Unknown Test Item Value Reference Range Comments Unknown (test code = 89067-4) 0.05 ng/mL Unknown Unknown F Ordering Physician UnknownLaboratory Hjbrseg0483-88-39 06:46:00Identifier 30721- 6 Result Time 2018-06-04 06:46:00Unknown Test Item Value Reference Range Comments Unknown (test code = 2777-1) 2.8 mg/dL Unknown 2.5-5.0 F Ordering Physician UnknownLaboratory Lhpavie9840-44-06 06:46:00Identifier 52187- 6 Result Time 2018-06-04 06:46:00Unknown Test Item Value Reference Range Comments Unknown (test code = 78245-3) 2.5 mg/dL Unknown 1.9-2.7 F Ordering Physician UnknownLaboratory Krvfpdh3197-52-97 10:48:00Identifier 31070- 6 Result Time 2018-06-03 10:48:00Unknown Test Item Value Reference Range Comments Unknown (test code = NullTestCode) 6.0 Unknown 5-9 F Ordering Physician UnknownLaboratory Xtzwygm9404-07-16 10:48:00Identifier 81443- 6 Result Time 2018-06-03 10:48:00Unknown Test Item Value Reference Range Comments Unknown (test code = 35942-9) 1.013 Unknown 1.010-1.030 F Ordering Physician UnknownLaboratory Xdjacod8967-64-79 10:15:00Identifier 50806- 6 Result Time 2018-06-03 10:15:00Unknown Test Item Value Reference Range Comments Unknown (test code = 3016-3) 3.38 mcIU/mL Unknown 0.34-5.60 F Ordering Physician UnknownLaboratory Qqtajhi3620-18-13 10:15:00Identifier 35350- 6 Result Time 2018-06-03 10:15:00Unknown Test Item Value Reference Range Comments Unknown (test code = 93807-5) 1.14 Unknown 0.77-1.02 F Ordering Physician UnknownLaboratory Xamqbkj6140-19-34 10:15:00Identifier 03848- 6 Result Time 2018-06-03 10:15:00Unknown Test Item Value Reference Range Comments Unknown (test code = 21605-0) 365 pg/mL Unknown Unknown F Ordering Physician UnknownLaboratory Ixujqfs0224-25-24 10:15:00Identifier 83370- 6 Result Time 2018-06-03 10:15:00Unknown Test Item Value Reference Range Comments Unknown (test code = 2885-2) 8.9 g/dL Unknown 6.4-8.9 F Ordering Physician UnknownLaboratory Wmsaqyk8612-03-78 10:15:00Identifier 68568- 6 Result Time 2018-06-03 10:15:00Unknown Test Item Value Reference Range Comments Unknown (test code = 1975-2) 0.60 mg/dL Unknown 0.2-1.0 F Ordering Physician UnknownLaboratory Qrnapms7597-13-40 10:15:00Identifier 51186- 6 Result Time 2018-06-03 10:15:00Unknown Test Item Value Reference Range Comments Unknown (test code = NullTestCode) 4.9 g/dL Unknown 2-4 F Ordering Physician UnknownLaboratory Xvavowp1280-63-35 10:15:00Identifier 65487- 6 Result Time 2018-06-03 10:15:00Unknown Test Item Value Reference Range Comments Unknown (test code = 1988-5) 11.17 mg/L Unknown 0-8.00 F Ordering Physician UnknownLaboratory Gwbvinl4712-32-69 10:15:00Identifier 64708- 6 Result Time 2018-06-03 10:15:00Unknown Test Item Value Reference Range Comments Unknown (test code = 1920-8) 25 U/L Unknown 13-39 F Ordering Physician UnknownLaboratory Qclpzns7661-10-30 10:15:00Identifier 24330- 6 Result Time 2018-06-03 10:15:00Unknown Test Item Value Reference Range Comments Unknown (test code = 6768-6) 153 U/L Unknown 34-104 F Ordering Physician UnknownLaboratory Ujkfsjf0086-93-26 10:15:00Identifier 76367- 6 Result Time 2018-06-03 10:15:00Unknown Test Item Value Reference Range Comments Unknown (test code = 1759-0) 0.8 Unknown 1-3 F Ordering Physician UnknownLaboratory Zjscdio4219-09-70 10:15:00Identifier 01321- 6 Result Time 2018-06-03 10:15:00Unknown Test Item Value Reference Range Comments Unknown (test code = 82775-4) 4.0 g/dL Unknown 3.2-5.2 F Ordering Physician UnknownLaboratory Zgghgwi4055-42-49 10:15:00Identifier 13989- 6 Result Time 2018-06-03 10:15:00Unknown Test Item Value Reference Range Comments Unknown (test code = 1742-6) 13 U/L Unknown 7-52 F Ordering Physician UnknownLaboratory Bquxzwo2541-35-86 10:15:00Identifier 57169- 6 Result Time 2018-06-03 10:15:00Unknown Test Item Value Reference Range Comments Unknown (test code = 2524-7) 0.9 mmol/L Unknown 0.5-2.0 F Ordering Physician Unknown
--- OUTSIDE RECORDS SUMMARY | 2019-06-13 09:56 | XMS REPORT ---
:1930 Author Organization [facility] Care Team Providers Name Role [...] Result Comments Laboratory Studies 2018-06-05 08:13:00 Identifier [id number] Result Time Unknown 2018-06-05 08:13:00 Test Item Value Reference Range Comments Unknown (test code = 2951-2) 136 mmol/L Unknown 135-145 F Ordering Physician UnknownLaboratory Cfwwbvu8370-90-44 08:13:00Identifier 60812- 6 Result Time 2018-06-05 08:13:00Unknown Test Item Value Reference Range Comments Unknown (test code = 2823-3) 4.0 mmol/L Unknown 3.5-5.0 F Ordering Physician UnknownLaboratory Luwqknt2316-13-93 08:13:00Identifier 05190- 6 Result Time 2018-06-05 08:13:00Unknown Test Item Value Reference Range Comments Unknown (test code = 2345-7) 87 mg/dL Unknown 70-100 F Ordering Physician UnknownLaboratory Gezdcat3424-66-94 08:13:00Identifier 83360- 6 Result Time 2018-06-05 08:13:00Unknown Test Item Value Reference Range Comments Unknown (test code = 25995-7) 46.9 Unknown Unknown F Ordering Physician UnknownLaboratory Hsspiba0437-18-35 08:13:00Identifier 32550- 6 Result Time 2018-06-05 08:13:00Unknown Test Item Value Reference Range Comments Unknown (test code = NullTestCode) 56.7 Unknown Unknown F Ordering Physician UnknownLaboratory Kslypwd5281-90-27 08:13:00Identifier 74885- 6 Result Time 2018-06-05 08:13:00Unknown Test Item Value Reference Range Comments Unknown (test code = 2160-0) 1.43 mg/dL Unknown 0.67-1.17 F Ordering Physician UnknownLaboratory Ekkcpfv7637-00-09 08:13:00Identifier 15514- 6 Result Time 2018-06-05 08:13:00Unknown Test Item Value Reference Range Comments Unknown (test code = 2075-0) 104 mmol/L Unknown 101-111 F Ordering Physician UnknownLaboratory Fpzssvi2060-10-56 08:13:00Identifier 56969- 6 Result Time 2018-06-05 08:13:00Unknown Test Item Value Reference Range Comments Unknown (test code = 2028-9) 24 mmol/L Unknown 22-32 F Ordering Physician UnknownLaboratory Sjwandi3443-71-85 08:13:00Identifier 58837- 6 Result Time 2018-06-05 08:13:00Unknown Test Item Value Reference Range Comments Unknown (test code = 05704-8) 9.0 mg/dL Unknown 8.6-10.3 F Ordering Physician UnknownLaboratory Efyhood5693-03-03 08:13:00Identifier 57099- 6 Result Time 2018-06-05 08:13:00Unknown Test Item Value Reference Range Comments Unknown (test code = 3094-0) 24 mg/dL Unknown 6-24 F Ordering Physician UnknownLaboratory Mzhhytn0927-93-71 08:13:00Identifier 32256- 6 Result Time 2018-06-05 08:13:00Unknown Test Item Value Reference Range Comments Unknown (test code = 3097-3) 16.8 Unknown 8-20 F Ordering Physician UnknownLaboratory Mlddfac1513-09-46 08:13:00Identifier 30049- 6 Result Time 2018-06-05 08:13:00Unknown Test Item Value Reference Range Comments Unknown (test code = 48593-9) 8 mmol/L Unknown 2-11 F Ordering Physician UnknownLaboratory Pexyrch7446-58-98 08:13:00Identifier 54240- 6 Result Time 2018-06-05 08:13:00Unknown Test Item Value Reference Range Comments Unknown (test code = 72313-3) 27.4 10^3/uL Unknown 3.5-10.8 F Ordering Physician UnknownLaboratory Yjvgdvq8712-54-38 08:13:00Identifier 12063- 6 Result Time 2018-06-05 08:13:00Unknown Test Item Value Reference Range Comments Unknown (test code = 788-0) 24 % Unknown 10.5-15 F Ordering Physician UnknownLaboratory Gyxaerl5097-29-05 08:13:00Identifier 15184- 6 Result Time 2018-06-05 08:13:00Unknown Test Item Value Reference Range Comments Unknown (test code = 789-8) 5.19 10^6 /uL Unknown 4.18-5.48 F Ordering Physician UnknownLaboratory Mkfllse6922-59-70 08:13:00Identifier 59389- 6 Result Time 2018-06-05 08:13:00Unknown Test Item Value Reference Range Comments Unknown (test code = 777-3) 330 10^3/uL Unknown 150-450 F Ordering Physician UnknownLaboratory Kyetwbs3604-33-31 08:13:00Identifier 37064- 6 Result Time 2018-06-05 08:13:00Unknown Test Item Value Reference Range Comments Unknown (test code = 24158-8) 0 Unknown Unknown F Ordering Physician UnknownLaboratory Mgdhwvd1722-56-48 08:13:00Identifier 47342- 6 Result Time 2018-06-05 08:13:00Unknown Test Item Value Reference Range Comments Unknown (test code = 771-6) 0 10^3/ul Unknown Unknown F Ordering Physician UnknownLaboratory Jdbwteh0912-83-39 08:13:00Identifier 21247- 6 Result Time 2018-06-05 08:13:00Unknown Test Item Value Reference Range Comments Unknown (test code = 770-8) 84.7 % Unknown Unknown F Ordering Physician UnknownLaboratory Xhvyyju6547-08-06 08:13:00Identifier 91186- 6 Result Time 2018-06-05 08:13:00Unknown Test Item Value Reference Range Comments Unknown (test code = 5905-5) 8.6 % Unknown Unknown F Ordering Physician UnknownLaboratory Krbnfzd4775-97-78 08:13:00Identifier 57876- 6 Result Time 2018-06-05 08:13:00Unknown Test Item Value Reference Range Comments Unknown (test code = 82369-4) 8.6 fL Unknown 7.4-10.4 F Ordering Physician UnknownLaboratory Tihsvqg2892-14-61 08:13:00Identifier 71047- 6 Result Time 2018-06-05 08:13:00Unknown Test Item Value Reference Range Comments Unknown (test code = 787-2) 78 fL Unknown 80-94 F Ordering Physician UnknownLaboratory Ystownj2966-07-77 08:13:00Identifier 60028- 6 Result Time 2018-06-05 08:13:00Unknown Test Item Value Reference Range Comments Unknown (test code = 786-4) 31 g/dL Unknown 31-36 F Ordering Physician UnknownLaboratory Tkvxnft3883-63-20 08:13:00Identifier 36325- 6 Result Time 2018-06-05 08:13:00Unknown Test Item Value Reference Range Comments Unknown (test code = 785-6) 24 pg Unknown 27-31 F Ordering Physician UnknownLaboratory Ivvyexy5358-52-25 08:13:00Identifier 69194- 6 Result Time 2018-06-05 08:13:00Unknown Test Item Value Reference Range Comments Unknown (test code = 736-9) 5.4 % Unknown Unknown F Ordering Physician UnknownLaboratory Efamets5016-14-20 08:13:00Identifier 40216- 6 Result Time 2018-06-05 08:13:00Unknown Test Item Value Reference Range Comments Unknown (test code = 718-7) 12.3 g/dL Unknown 14.0-18.0 F Ordering Physician UnknownLaboratory Ndpxpkl7306-95-49 08:13:00Identifier 27400- 6 Result Time 2018-06-05 08:13:00Unknown Test Item Value Reference Range Comments Unknown (test code = 4544-3) 40 % Unknown 36-46 F Ordering Physician UnknownLaboratory Vidafnh2437-50-49 08:13:00Identifier 53452- 6 Result Time 2018-06-05 08:13:00Unknown Test Item Value Reference Range Comments Unknown (test code = 713-8) 0.8 % Unknown Unknown F Ordering Physician UnknownLaboratory Gogplwl7885-81-63 08:13:00Identifier 75756- 6 Result Time 2018-06-05 08:13:00Unknown Test Item Value Reference Range Comments Unknown (test code = 706-2) 0.5 % Unknown Unknown F Ordering Physician UnknownLaboratory Zqrkamx4858-38-67 08:13:00Identifier 48523- 6 Result Time 2018-06-05 08:13:00Unknown Test Item Value Reference Range Comments Unknown (test code = IOH0677) 23.2 10^3/ul Unknown 1.5-7.7 F Ordering Physician UnknownLaboratory Nkowuai1117-66-57 08:13:00Identifier 98184- 6 Result Time 2018-06-05 08:13:00Unknown Test Item Value Reference Range Comments Unknown (test code = 742-7) 2.4 10^3/ul Unknown 0-0.8 F Ordering Physician UnknownLaboratory Mlgbtvr9467-06-28 08:13:00Identifier 71322- 6 Result Time 2018-06-05 08:13:00Unknown Test Item Value Reference Range Comments Unknown (test code = 731-0) 1.5 10^3/ul Unknown 1.0-4.8 F Ordering Physician UnknownLaboratory Lvzqytl8212-08-16 08:13:00Identifier 45285- 6 Result Time 2018-06-05 08:13:00Unknown Test Item Value Reference Range Comments Unknown (test code = 711-2) 0.2 10^3/ul Unknown 0-0.6 F Ordering Physician UnknownLaboratory Cospjlb6372-97-19 08:13:00Identifier 64591- 6 Result Time 2018-06-05 08:13:00Unknown Test Item Value Reference Range Comments Unknown (test code = 704-7) 0.1 10^3/ul Unknown 0-0.2 F Ordering Physician UnknownLaboratory Udpsftt5166-35-25 06:46:00Identifier 60981- 6 Result Time 2018-06-04 06:46:00Unknown Test Item Value Reference Range Comments Unknown (test code = 08624-6) 0.05 ng/mL Unknown Unknown F Ordering Physician UnknownLaboratory Nsywktf3273-82-87 06:46:00Identifier 34325- 6 Result Time 2018-06-04 06:46:00Unknown Test Item Value Reference Range Comments Unknown (test code = 2777-1) 2.8 mg/dL Unknown 2.5-5.0 F Ordering Physician UnknownLaboratory Kjvwkee5860-09-25 06:46:00Identifier 16804- 6 Result Time 2018-06-04 06:46:00Unknown Test Item Value Reference Range Comments Unknown (test code = 64107-8) 2.5 mg/dL Unknown 1.9-2.7 F Ordering Physician UnknownLaboratory Eblnnqg7849-76-61 10:48:00Identifier 89594- 6 Result Time 2018-06-03 10:48:00Unknown Test Item Value Reference Range Comments Unknown (test code = NullTestCode) 6.0 Unknown 5-9 F Ordering Physician UnknownLaboratory Iuafdsk0243-26-98 10:48:00Identifier 31868- 6 Result Time 2018-06-03 10:48:00Unknown Test Item Value Reference Range Comments Unknown (test code = 04292-4) 1.013 Unknown 1.010-1.030 F Ordering Physician UnknownLaboratory Uezngak0625-12-96 10:15:00Identifier 43137- 6 Result Time 2018-06-03 10:15:00Unknown Test Item Value Reference Range Comments Unknown (test code = 3016-3) 3.38 mcIU/mL Unknown 0.34-5.60 F Ordering Physician UnknownLaboratory Carzlof8412-97-78 10:15:00Identifier 76400- 6 Result Time 2018-06-03 10:15:00Unknown Test Item Value Reference Range Comments Unknown (test code = 93177-2) 1.14 Unknown 0.77-1.02 F Ordering Physician UnknownLaboratory Jomcnlz3831-66-23 10:15:00Identifier 06758- 6 Result Time 2018-06-03 10:15:00Unknown Test Item Value Reference Range Comments Unknown (test code = 54279-2) 365 pg/mL Unknown Unknown F Ordering Physician UnknownLaboratory Zctjkjs3008-42-61 10:15:00Identifier 32561- 6 Result Time 2018-06-03 10:15:00Unknown Test Item Value Reference Range Comments Unknown (test code = 2885-2) 8.9 g/dL Unknown 6.4-8.9 F Ordering Physician UnknownLaboratory Lrjymaj2882-65-16 10:15:00Identifier 21252- 6 Result Time 2018-06-03 10:15:00Unknown Test Item Value Reference Range Comments Unknown (test code = 1975-2) 0.60 mg/dL Unknown 0.2-1.0 F Ordering Physician UnknownLaboratory Efikqrx8197-13-71 10:15:00Identifier 71794- 6 Result Time 2018-06-03 10:15:00Unknown Test Item Value Reference Range Comments Unknown (test code = NullTestCode) 4.9 g/dL Unknown 2-4 F Ordering Physician UnknownLaboratory Gyrenko6655-89-79 10:15:00Identifier 86555- 6 Result Time 2018-06-03 10:15:00Unknown Test Item Value Reference Range Comments Unknown (test code = 1988-5) 11.17 mg/L Unknown 0-8.00 F Ordering Physician UnknownLaboratory Tpynfcg0765-85-18 10:15:00Identifier 19515- 6 Result Time 2018-06-03 10:15:00Unknown Test Item Value Reference Range Comments Unknown (test code = 1920-8) 25 U/L Unknown 13-39 F Ordering Physician UnknownLaboratory Kimcbqn4483-25-63 10:15:00Identifier 58946- 6 Result Time 2018-06-03 10:15:00Unknown Test Item Value Reference Range Comments Unknown (test code = 6768-6) 153 U/L Unknown 34-104 F Ordering Physician UnknownLaboratory Vuydfds9287-46-11 10:15:00Identifier 67452- 6 Result Time 2018-06-03 10:15:00Unknown Test Item Value Reference Range Comments Unknown (test code = 1759-0) 0.8 Unknown 1-3 F Ordering Physician UnknownLaboratory Aacgytr9428-66-33 10:15:00Identifier 46916- 6 Result Time 2018-06-03 10:15:00Unknown Test Item Value Reference Range Comments Unknown (test code = 22177-6) 4.0 g/dL Unknown 3.2-5.2 F Ordering Physician UnknownLaboratory Uhwrcuf8320-42-58 10:15:00Identifier 01723- 6 Result Time 2018-06-03 10:15:00Unknown Test Item Value Reference Range Comments Unknown (test code = 1742-6) 13 U/L Unknown 7-52 F Ordering Physician UnknownLaboratory Ejjktvx5684-67-24 10:15:00Identifier 26331- 6 Result Time 2018-06-03 10:15:00Unknown Test Item Value Reference Range Comments Unknown (test code = 2524-7) 0.9 mmol/L Unknown 0.5-2.0 F Ordering Physician Unknown
--- OUTSIDE RECORDS SUMMARY | 2019-06-13 09:56 | XMS REPORT ---
:1930 Author Organization [facility] Care Team Providers Name Role Phone [...] Result Comments Laboratory Studies 2018-06-05 08:13:00 Identifier [id number] Result Time Unknown 2018-06-05 08:13:00 Test Item Value Reference Range Comments Unknown (test code = 2951-2) 136 mmol/L Unknown 135-145 F Ordering Physician UnknownLaboratory Yxtrpzo7870-08-12 08:13:00Identifier 76236- 6 Result Time 2018-06-05 08:13:00Unknown Test Item Value Reference Range Comments Unknown (test code = 2823-3) 4.0 mmol/L Unknown 3.5-5.0 F Ordering Physician UnknownLaboratory Lrcgkbq4176-33-41 08:13:00Identifier 70494- 6 Result Time 2018-06-05 08:13:00Unknown Test Item Value Reference Range Comments Unknown (test code = 2345-7) 87 mg/dL Unknown 70-100 F Ordering Physician UnknownLaboratory Xhcctrj8890-32-13 08:13:00Identifier 82783- 6 Result Time 2018-06-05 08:13:00Unknown Test Item Value Reference Range Comments Unknown (test code = 46348-7) 46.9 Unknown Unknown F Ordering Physician UnknownLaboratory Xrqodng0090-62-48 08:13:00Identifier 65187- 6 Result Time 2018-06-05 08:13:00Unknown Test Item Value Reference Range Comments Unknown (test code = NullTestCode) 56.7 Unknown Unknown F Ordering Physician UnknownLaboratory Dzzeneg0839-63-56 08:13:00Identifier 74318- 6 Result Time 2018-06-05 08:13:00Unknown Test Item Value Reference Range Comments Unknown (test code = 2160-0) 1.43 mg/dL Unknown 0.67-1.17 F Ordering Physician UnknownLaboratory Ffafxji2415-28-18 08:13:00Identifier 96833- 6 Result Time 2018-06-05 08:13:00Unknown Test Item Value Reference Range Comments Unknown (test code = 2075-0) 104 mmol/L Unknown 101-111 F Ordering Physician UnknownLaboratory Gthwwzl7171-50-38 08:13:00Identifier 05465- 6 Result Time 2018-06-05 08:13:00Unknown Test Item Value Reference Range Comments Unknown (test code = 2028-9) 24 mmol/L Unknown 22-32 F Ordering Physician UnknownLaboratory Qzzcfql4022-94-52 08:13:00Identifier 67688- 6 Result Time 2018-06-05 08:13:00Unknown Test Item Value Reference Range Comments Unknown (test code = 49312-8) 9.0 mg/dL Unknown 8.6-10.3 F Ordering Physician UnknownLaboratory Mztnfor4197-29-93 08:13:00Identifier 87780- 6 Result Time 2018-06-05 08:13:00Unknown Test Item Value Reference Range Comments Unknown (test code = 3094-0) 24 mg/dL Unknown 6-24 F Ordering Physician UnknownLaboratory Wabgfan1763-74-33 08:13:00Identifier 36191- 6 Result Time 2018-06-05 08:13:00Unknown Test Item Value Reference Range Comments Unknown (test code = 3097-3) 16.8 Unknown 8-20 F Ordering Physician UnknownLaboratory Qtavbiq5182-11-66 08:13:00Identifier 95235- 6 Result Time 2018-06-05 08:13:00Unknown Test Item Value Reference Range Comments Unknown (test code = 18787-6) 8 mmol/L Unknown 2-11 F Ordering Physician UnknownLaboratory Bkeobia6180-00-98 08:13:00Identifier 60084- 6 Result Time 2018-06-05 08:13:00Unknown Test Item Value Reference Range Comments Unknown (test code = 38340-5) 27.4 10^3/uL Unknown 3.5-10.8 F Ordering Physician UnknownLaboratory Zkdbgpt6379-35-81 08:13:00Identifier 64433- 6 Result Time 2018-06-05 08:13:00Unknown Test Item Value Reference Range Comments Unknown (test code = 788-0) 24 % Unknown 10.5-15 F Ordering Physician UnknownLaboratory Uujxmdi6055-60-07 08:13:00Identifier 30113- 6 Result Time 2018-06-05 08:13:00Unknown Test Item Value Reference Range Comments Unknown (test code = 789-8) 5.19 10^6 /uL Unknown 4.18-5.48 F Ordering Physician UnknownLaboratory Haxegpf8942-28-92 08:13:00Identifier 33422- 6 Result Time 2018-06-05 08:13:00Unknown Test Item Value Reference Range Comments Unknown (test code = 777-3) 330 10^3/uL Unknown 150-450 F Ordering Physician UnknownLaboratory Routnhu9688-86-66 08:13:00Identifier 82525- 6 Result Time 2018-06-05 08:13:00Unknown Test Item Value Reference Range Comments Unknown (test code = 10327-0) 0 Unknown Unknown F Ordering Physician UnknownLaboratory Jaezrew8614-45-51 08:13:00Identifier 99106- 6 Result Time 2018-06-05 08:13:00Unknown Test Item Value Reference Range Comments Unknown (test code = 771-6) 0 10^3/ul Unknown Unknown F Ordering Physician UnknownLaboratory Ajwosbk3632-16-40 08:13:00Identifier 43653- 6 Result Time 2018-06-05 08:13:00Unknown Test Item Value Reference Range Comments Unknown (test code = 770-8) 84.7 % Unknown Unknown F Ordering Physician UnknownLaboratory Sibyujm4255-12-07 08:13:00Identifier 21410- 6 Result Time 2018-06-05 08:13:00Unknown Test Item Value Reference Range Comments Unknown (test code = 5905-5) 8.6 % Unknown Unknown F Ordering Physician UnknownLaboratory Lhvwjms3218-97-15 08:13:00Identifier 02931- 6 Result Time 2018-06-05 08:13:00Unknown Test Item Value Reference Range Comments Unknown (test code = 85608-5) 8.6 fL Unknown 7.4-10.4 F Ordering Physician UnknownLaboratory Qqekhbv7664-73-40 08:13:00Identifier 67021- 6 Result Time 2018-06-05 08:13:00Unknown Test Item Value Reference Range Comments Unknown (test code = 787-2) 78 fL Unknown 80-94 F Ordering Physician UnknownLaboratory Idlziko5751-91-21 08:13:00Identifier 67333- 6 Result Time 2018-06-05 08:13:00Unknown Test Item Value Reference Range Comments Unknown (test code = 786-4) 31 g/dL Unknown 31-36 F Ordering Physician UnknownLaboratory Xrikrqx2348-53-31 08:13:00Identifier 45948- 6 Result Time 2018-06-05 08:13:00Unknown Test Item Value Reference Range Comments Unknown (test code = 785-6) 24 pg Unknown 27-31 F Ordering Physician UnknownLaboratory Rrbawsy3105-69-19 08:13:00Identifier 75559- 6 Result Time 2018-06-05 08:13:00Unknown Test Item Value Reference Range Comments Unknown (test code = 736-9) 5.4 % Unknown Unknown F Ordering Physician UnknownLaboratory Vhyislf7833-38-26 08:13:00Identifier 31634- 6 Result Time 2018-06-05 08:13:00Unknown Test Item Value Reference Range Comments Unknown (test code = 718-7) 12.3 g/dL Unknown 14.0-18.0 F Ordering Physician UnknownLaboratory Toxycgv2018-12-43 08:13:00Identifier 50692- 6 Result Time 2018-06-05 08:13:00Unknown Test Item Value Reference Range Comments Unknown (test code = 4544-3) 40 % Unknown 36-46 F Ordering Physician UnknownLaboratory Acjajnx1751-06-63 08:13:00Identifier 75384- 6 Result Time 2018-06-05 08:13:00Unknown Test Item Value Reference Range Comments Unknown (test code = 713-8) 0.8 % Unknown Unknown F Ordering Physician UnknownLaboratory Bkevont6780-24-83 08:13:00Identifier 89779- 6 Result Time 2018-06-05 08:13:00Unknown Test Item Value Reference Range Comments Unknown (test code = 706-2) 0.5 % Unknown Unknown F Ordering Physician UnknownLaboratory Xuezcoc3411-98-73 08:13:00Identifier 33890- 6 Result Time 2018-06-05 08:13:00Unknown Test Item Value Reference Range Comments Unknown (test code = BYY7195) 23.2 10^3/ul Unknown 1.5-7.7 F Ordering Physician UnknownLaboratory Ccvwebb6729-83-72 08:13:00Identifier 49707- 6 Result Time 2018-06-05 08:13:00Unknown Test Item Value Reference Range Comments Unknown (test code = 742-7) 2.4 10^3/ul Unknown 0-0.8 F Ordering Physician UnknownLaboratory Jcwvdxo4492-52-97 08:13:00Identifier 69863- 6 Result Time 2018-06-05 08:13:00Unknown Test Item Value Reference Range Comments Unknown (test code = 731-0) 1.5 10^3/ul Unknown 1.0-4.8 F Ordering Physician UnknownLaboratory Lnmwcaz6955-66-34 08:13:00Identifier 99148- 6 Result Time 2018-06-05 08:13:00Unknown Test Item Value Reference Range Comments Unknown (test code = 711-2) 0.2 10^3/ul Unknown 0-0.6 F Ordering Physician UnknownLaboratory Xvwtaio8971-75-18 08:13:00Identifier 42099- 6 Result Time 2018-06-05 08:13:00Unknown Test Item Value Reference Range Comments Unknown (test code = 704-7) 0.1 10^3/ul Unknown 0-0.2 F Ordering Physician UnknownLaboratory Eattcbp4961-40-41 06:46:00Identifier 17651- 6 Result Time 2018-06-04 06:46:00Unknown Test Item Value Reference Range Comments Unknown (test code = 12927-2) 0.05 ng/mL Unknown Unknown F Ordering Physician UnknownLaboratory Zjovqrb6045-37-32 06:46:00Identifier 42453- 6 Result Time 2018-06-04 06:46:00Unknown Test Item Value Reference Range Comments Unknown (test code = 2777-1) 2.8 mg/dL Unknown 2.5-5.0 F Ordering Physician UnknownLaboratory Secyirc3557-35-23 06:46:00Identifier 20728- 6 Result Time 2018-06-04 06:46:00Unknown Test Item Value Reference Range Comments Unknown (test code = 77961-6) 2.5 mg/dL Unknown 1.9-2.7 F Ordering Physician UnknownLaboratory Qidesde6888-64-79 10:48:00Identifier 84303- 6 Result Time 2018-06-03 10:48:00Unknown Test Item Value Reference Range Comments Unknown (test code = NullTestCode) 6.0 Unknown 5-9 F Ordering Physician UnknownLaboratory Qpwlbit8909-55-23 10:48:00Identifier 93435- 6 Result Time 2018-06-03 10:48:00Unknown Test Item Value Reference Range Comments Unknown (test code = 02890-1) 1.013 Unknown 1.010-1.030 F Ordering Physician UnknownLaboratory Lkxccqd3739-49-00 10:15:00Identifier 10438- 6 Result Time 2018-06-03 10:15:00Unknown Test Item Value Reference Range Comments Unknown (test code = 3016-3) 3.38 mcIU/mL Unknown 0.34-5.60 F Ordering Physician UnknownLaboratory Ucwekgb8190-69-47 10:15:00Identifier 38592- 6 Result Time 2018-06-03 10:15:00Unknown Test Item Value Reference Range Comments Unknown (test code = 32191-1) 1.14 Unknown 0.77-1.02 F Ordering Physician UnknownLaboratory Ciqeudh0647-53-31 10:15:00Identifier 41510- 6 Result Time 2018-06-03 10:15:00Unknown Test Item Value Reference Range Comments Unknown (test code = 14866-2) 365 pg/mL Unknown Unknown F Ordering Physician UnknownLaboratory Wzdzbid3267-40-23 10:15:00Identifier 75121- 6 Result Time 2018-06-03 10:15:00Unknown Test Item Value Reference Range Comments Unknown (test code = 2885-2) 8.9 g/dL Unknown 6.4-8.9 F Ordering Physician UnknownLaboratory Evglpaf2316-28-09 10:15:00Identifier 79883- 6 Result Time 2018-06-03 10:15:00Unknown Test Item Value Reference Range Comments Unknown (test code = 1975-2) 0.60 mg/dL Unknown 0.2-1.0 F Ordering Physician UnknownLaboratory Bncbawg8056-49-63 10:15:00Identifier 79918- 6 Result Time 2018-06-03 10:15:00Unknown Test Item Value Reference Range Comments Unknown (test code = NullTestCode) 4.9 g/dL Unknown 2-4 F Ordering Physician UnknownLaboratory Knvdcpb8782-47-62 10:15:00Identifier 66736- 6 Result Time 2018-06-03 10:15:00Unknown Test Item Value Reference Range Comments Unknown (test code = 1988-5) 11.17 mg/L Unknown 0-8.00 F Ordering Physician UnknownLaboratory Stnvbjd8855-99-22 10:15:00Identifier 55473- 6 Result Time 2018-06-03 10:15:00Unknown Test Item Value Reference Range Comments Unknown (test code = 1920-8) 25 U/L Unknown 13-39 F Ordering Physician UnknownLaboratory Meozjal0780-71-18 10:15:00Identifier 00126- 6 Result Time 2018-06-03 10:15:00Unknown Test Item Value Reference Range Comments Unknown (test code = 6768-6) 153 U/L Unknown 34-104 F Ordering Physician UnknownLaboratory Othhvvy7499-91-74 10:15:00Identifier 62783- 6 Result Time 2018-06-03 10:15:00Unknown Test Item Value Reference Range Comments Unknown (test code = 1759-0) 0.8 Unknown 1-3 F Ordering Physician UnknownLaboratory Ftewiqr6650-76-13 10:15:00Identifier 53407- 6 Result Time 2018-06-03 10:15:00Unknown Test Item Value Reference Range Comments Unknown (test code = 54742-7) 4.0 g/dL Unknown 3.2-5.2 F Ordering Physician UnknownLaboratory Mtutimy6646-51-77 10:15:00Identifier 01206- 6 Result Time 2018-06-03 10:15:00Unknown Test Item Value Reference Range Comments Unknown (test code = 1742-6) 13 U/L Unknown 7-52 F Ordering Physician UnknownLaboratory Tvyxkxt4600-84-78 10:15:00Identifier 59332- 6 Result Time 2018-06-03 10:15:00Unknown Test Item Value Reference Range Comments Unknown (test code = 2524-7) 0.9 mmol/L Unknown 0.5-2.0 F Ordering Physician Unknown
--- OUTSIDE RECORDS SUMMARY | 2019-06-13 09:57 | XMS REPORT ---
:1930 Author Organization [facility] Care Team Providers Name Role Phone [...] Result Comments Laboratory Studies 2018-06-05 08:13:00 Identifier [id number] Result Time Unknown 2018-06-05 08:13:00 Test Item Value Reference Range Comments Unknown (test code = 2951-2) 136 mmol/L Unknown 135-145 F Ordering Physician UnknownLaboratory Jsrxysb9253-79-67 08:13:00Identifier 18151- 6 Result Time 2018-06-05 08:13:00Unknown Test Item Value Reference Range Comments Unknown (test code = 2823-3) 4.0 mmol/L Unknown 3.5-5.0 F Ordering Physician UnknownLaboratory Tkbhytg7001-22-82 08:13:00Identifier 83121- 6 Result Time 2018-06-05 08:13:00Unknown Test Item Value Reference Range Comments Unknown (test code = 2345-7) 87 mg/dL Unknown 70-100 F Ordering Physician UnknownLaboratory Imbtadw6427-11-72 08:13:00Identifier 30405- 6 Result Time 2018-06-05 08:13:00Unknown Test Item Value Reference Range Comments Unknown (test code = 91173-6) 46.9 Unknown Unknown F Ordering Physician UnknownLaboratory Wezsxhi6481-70-61 08:13:00Identifier 94645- 6 Result Time 2018-06-05 08:13:00Unknown Test Item Value Reference Range Comments Unknown (test code = NullTestCode) 56.7 Unknown Unknown F Ordering Physician UnknownLaboratory Fyumbnv0698-88-80 08:13:00Identifier 65938- 6 Result Time 2018-06-05 08:13:00Unknown Test Item Value Reference Range Comments Unknown (test code = 2160-0) 1.43 mg/dL Unknown 0.67-1.17 F Ordering Physician UnknownLaboratory Kwhfqjv4886-09-35 08:13:00Identifier 36299- 6 Result Time 2018-06-05 08:13:00Unknown Test Item Value Reference Range Comments Unknown (test code = 2075-0) 104 mmol/L Unknown 101-111 F Ordering Physician UnknownLaboratory Reezttp5648-94-07 08:13:00Identifier 14728- 6 Result Time 2018-06-05 08:13:00Unknown Test Item Value Reference Range Comments Unknown (test code = 2028-9) 24 mmol/L Unknown 22-32 F Ordering Physician UnknownLaboratory Flxanlt0135-27-83 08:13:00Identifier 96130- 6 Result Time 2018-06-05 08:13:00Unknown Test Item Value Reference Range Comments Unknown (test code = 99558-3) 9.0 mg/dL Unknown 8.6-10.3 F Ordering Physician UnknownLaboratory Fzwsccb3658-77-46 08:13:00Identifier 34343- 6 Result Time 2018-06-05 08:13:00Unknown Test Item Value Reference Range Comments Unknown (test code = 3094-0) 24 mg/dL Unknown 6-24 F Ordering Physician UnknownLaboratory Flxxyll5511-46-02 08:13:00Identifier 54769- 6 Result Time 2018-06-05 08:13:00Unknown Test Item Value Reference Range Comments Unknown (test code = 3097-3) 16.8 Unknown 8-20 F Ordering Physician UnknownLaboratory Bmgiavp8863-56-64 08:13:00Identifier 35428- 6 Result Time 2018-06-05 08:13:00Unknown Test Item Value Reference Range Comments Unknown (test code = 74060-5) 8 mmol/L Unknown 2-11 F Ordering Physician UnknownLaboratory Ewjbzco7095-41-84 08:13:00Identifier 89358- 6 Result Time 2018-06-05 08:13:00Unknown Test Item Value Reference Range Comments Unknown (test code = 68432-6) 27.4 10^3/uL Unknown 3.5-10.8 F Ordering Physician UnknownLaboratory Gwafjph6089-85-47 08:13:00Identifier 28570- 6 Result Time 2018-06-05 08:13:00Unknown Test Item Value Reference Range Comments Unknown (test code = 788-0) 24 % Unknown 10.5-15 F Ordering Physician UnknownLaboratory Fwwwuda2932-06-11 08:13:00Identifier 50406- 6 Result Time 2018-06-05 08:13:00Unknown Test Item Value Reference Range Comments Unknown (test code = 789-8) 5.19 10^6 /uL Unknown 4.18-5.48 F Ordering Physician UnknownLaboratory Xwgktlx4795-36-53 08:13:00Identifier 75866- 6 Result Time 2018-06-05 08:13:00Unknown Test Item Value Reference Range Comments Unknown (test code = 777-3) 330 10^3/uL Unknown 150-450 F Ordering Physician UnknownLaboratory Gpfyysb1971-53-60 08:13:00Identifier 49840- 6 Result Time 2018-06-05 08:13:00Unknown Test Item Value Reference Range Comments Unknown (test code = 80184-0) 0 Unknown Unknown F Ordering Physician UnknownLaboratory Vyhokwd8308-48-50 08:13:00Identifier 97126- 6 Result Time 2018-06-05 08:13:00Unknown Test Item Value Reference Range Comments Unknown (test code = 771-6) 0 10^3/ul Unknown Unknown F Ordering Physician UnknownLaboratory Oodgkge6287-68-04 08:13:00Identifier 06395- 6 Result Time 2018-06-05 08:13:00Unknown Test Item Value Reference Range Comments Unknown (test code = 770-8) 84.7 % Unknown Unknown F Ordering Physician UnknownLaboratory Kauolrv9571-72-67 08:13:00Identifier 39537- 6 Result Time 2018-06-05 08:13:00Unknown Test Item Value Reference Range Comments Unknown (test code = 5905-5) 8.6 % Unknown Unknown F Ordering Physician UnknownLaboratory Ryuslnq8453-63-83 08:13:00Identifier 62830- 6 Result Time 2018-06-05 08:13:00Unknown Test Item Value Reference Range Comments Unknown (test code = 10743-6) 8.6 fL Unknown 7.4-10.4 F Ordering Physician UnknownLaboratory Ejnodsa1541-97-71 08:13:00Identifier 37031- 6 Result Time 2018-06-05 08:13:00Unknown Test Item Value Reference Range Comments Unknown (test code = 787-2) 78 fL Unknown 80-94 F Ordering Physician UnknownLaboratory Gkkqaea6246-01-11 08:13:00Identifier 24781- 6 Result Time 2018-06-05 08:13:00Unknown Test Item Value Reference Range Comments Unknown (test code = 786-4) 31 g/dL Unknown 31-36 F Ordering Physician UnknownLaboratory Aejpjys5186-51-70 08:13:00Identifier 77410- 6 Result Time 2018-06-05 08:13:00Unknown Test Item Value Reference Range Comments Unknown (test code = 785-6) 24 pg Unknown 27-31 F Ordering Physician UnknownLaboratory Vwhcpze2398-22-94 08:13:00Identifier 22132- 6 Result Time 2018-06-05 08:13:00Unknown Test Item Value Reference Range Comments Unknown (test code = 736-9) 5.4 % Unknown Unknown F Ordering Physician UnknownLaboratory Uzlmfey3304-53-16 08:13:00Identifier 30730- 6 Result Time 2018-06-05 08:13:00Unknown Test Item Value Reference Range Comments Unknown (test code = 718-7) 12.3 g/dL Unknown 14.0-18.0 F Ordering Physician UnknownLaboratory Qlzoqhm2969-99-78 08:13:00Identifier 49516- 6 Result Time 2018-06-05 08:13:00Unknown Test Item Value Reference Range Comments Unknown (test code = 4544-3) 40 % Unknown 36-46 F Ordering Physician UnknownLaboratory Ohmfdaf8075-77-24 08:13:00Identifier 57442- 6 Result Time 2018-06-05 08:13:00Unknown Test Item Value Reference Range Comments Unknown (test code = 713-8) 0.8 % Unknown Unknown F Ordering Physician UnknownLaboratory Hehxwfd1786-09-49 08:13:00Identifier 91380- 6 Result Time 2018-06-05 08:13:00Unknown Test Item Value Reference Range Comments Unknown (test code = 706-2) 0.5 % Unknown Unknown F Ordering Physician UnknownLaboratory Yvhrdjb7823-90-12 08:13:00Identifier 85566- 6 Result Time 2018-06-05 08:13:00Unknown Test Item Value Reference Range Comments Unknown (test code = DIV6523) 23.2 10^3/ul Unknown 1.5-7.7 F Ordering Physician UnknownLaboratory Ymkanim0625-93-54 08:13:00Identifier 05313- 6 Result Time 2018-06-05 08:13:00Unknown Test Item Value Reference Range Comments Unknown (test code = 742-7) 2.4 10^3/ul Unknown 0-0.8 F Ordering Physician UnknownLaboratory Lpxunlm5971-31-87 08:13:00Identifier 85783- 6 Result Time 2018-06-05 08:13:00Unknown Test Item Value Reference Range Comments Unknown (test code = 731-0) 1.5 10^3/ul Unknown 1.0-4.8 F Ordering Physician UnknownLaboratory Zkazwoi0428-57-11 08:13:00Identifier 26156- 6 Result Time 2018-06-05 08:13:00Unknown Test Item Value Reference Range Comments Unknown (test code = 711-2) 0.2 10^3/ul Unknown 0-0.6 F Ordering Physician UnknownLaboratory Saoujvs1646-19-91 08:13:00Identifier 79936- 6 Result Time 2018-06-05 08:13:00Unknown Test Item Value Reference Range Comments Unknown (test code = 704-7) 0.1 10^3/ul Unknown 0-0.2 F Ordering Physician UnknownLaboratory Tavcqrb0357-59-42 06:46:00Identifier 74277- 6 Result Time 2018-06-04 06:46:00Unknown Test Item Value Reference Range Comments Unknown (test code = 63483-5) 0.05 ng/mL Unknown Unknown F Ordering Physician UnknownLaboratory Ezxvhub1828-39-20 06:46:00Identifier 07410- 6 Result Time 2018-06-04 06:46:00Unknown Test Item Value Reference Range Comments Unknown (test code = 2777-1) 2.8 mg/dL Unknown 2.5-5.0 F Ordering Physician UnknownLaboratory Ngcedec8772-51-80 06:46:00Identifier 31409- 6 Result Time 2018-06-04 06:46:00Unknown Test Item Value Reference Range Comments Unknown (test code = 17784-0) 2.5 mg/dL Unknown 1.9-2.7 F Ordering Physician UnknownLaboratory Tqggnhz8593-48-17 10:48:00Identifier 04126- 6 Result Time 2018-06-03 10:48:00Unknown Test Item Value Reference Range Comments Unknown (test code = NullTestCode) 6.0 Unknown 5-9 F Ordering Physician UnknownLaboratory Zzikvmu0407-66-80 10:48:00Identifier 34892- 6 Result Time 2018-06-03 10:48:00Unknown Test Item Value Reference Range Comments Unknown (test code = 96940-0) 1.013 Unknown 1.010-1.030 F Ordering Physician UnknownLaboratory Ujaumtj7811-35-98 10:15:00Identifier 62194- 6 Result Time 2018-06-03 10:15:00Unknown Test Item Value Reference Range Comments Unknown (test code = 3016-3) 3.38 mcIU/mL Unknown 0.34-5.60 F Ordering Physician UnknownLaboratory Iivetxy0415-80-02 10:15:00Identifier 20289- 6 Result Time 2018-06-03 10:15:00Unknown Test Item Value Reference Range Comments Unknown (test code = 13598-3) 1.14 Unknown 0.77-1.02 F Ordering Physician UnknownLaboratory Ddipkhz2832-21-79 10:15:00Identifier 71464- 6 Result Time 2018-06-03 10:15:00Unknown Test Item Value Reference Range Comments Unknown (test code = 98881-6) 365 pg/mL Unknown Unknown F Ordering Physician UnknownLaboratory Pzoaucs9836-17-19 10:15:00Identifier 28687- 6 Result Time 2018-06-03 10:15:00Unknown Test Item Value Reference Range Comments Unknown (test code = 2885-2) 8.9 g/dL Unknown 6.4-8.9 F Ordering Physician UnknownLaboratory Qagsclj2730-20-07 10:15:00Identifier 03985- 6 Result Time 2018-06-03 10:15:00Unknown Test Item Value Reference Range Comments Unknown (test code = 1975-2) 0.60 mg/dL Unknown 0.2-1.0 F Ordering Physician UnknownLaboratory Hftlhxj2097-52-86 10:15:00Identifier 85003- 6 Result Time 2018-06-03 10:15:00Unknown Test Item Value Reference Range Comments Unknown (test code = NullTestCode) 4.9 g/dL Unknown 2-4 F Ordering Physician UnknownLaboratory Eljevku4114-53-50 10:15:00Identifier 91641- 6 Result Time 2018-06-03 10:15:00Unknown Test Item Value Reference Range Comments Unknown (test code = 1988-5) 11.17 mg/L Unknown 0-8.00 F Ordering Physician UnknownLaboratory Hfmusxm1778-78-41 10:15:00Identifier 81946- 6 Result Time 2018-06-03 10:15:00Unknown Test Item Value Reference Range Comments Unknown (test code = 1920-8) 25 U/L Unknown 13-39 F Ordering Physician UnknownLaboratory Ysirhbs1491-11-16 10:15:00Identifier 57943- 6 Result Time 2018-06-03 10:15:00Unknown Test Item Value Reference Range Comments Unknown (test code = 6768-6) 153 U/L Unknown 34-104 F Ordering Physician UnknownLaboratory Pkpaffe2321-42-62 10:15:00Identifier 60758- 6 Result Time 2018-06-03 10:15:00Unknown Test Item Value Reference Range Comments Unknown (test code = 1759-0) 0.8 Unknown 1-3 F Ordering Physician UnknownLaboratory Wyqafas5893-14-42 10:15:00Identifier 52287- 6 Result Time 2018-06-03 10:15:00Unknown Test Item Value Reference Range Comments Unknown (test code = 83480-3) 4.0 g/dL Unknown 3.2-5.2 F Ordering Physician UnknownLaboratory Onkxbjl1162-90-22 10:15:00Identifier 44893- 6 Result Time 2018-06-03 10:15:00Unknown Test Item Value Reference Range Comments Unknown (test code = 1742-6) 13 U/L Unknown 7-52 F Ordering Physician UnknownLaboratory Opsxwkw2405-77-77 10:15:00Identifier 02519- 6 Result Time 2018-06-03 10:15:00Unknown Test Item Value Reference Range Comments Unknown (test code = 2524-7) 0.9 mmol/L Unknown 0.5-2.0 F Ordering Physician Unknown
--- OUTSIDE RECORDS SUMMARY | 2019-06-13 09:57 | XMS REPORT ---
:1930 Author Organization [facility] Care Team Providers Name Role Phone Unavailable [...] Result Comments Laboratory Studies 2018-06-05 08:13:00 Identifier [id number] Result Time Unknown 2018-06-05 08:13:00 Test Item Value Reference Range Comments Unknown (test code = 2951-2) 136 mmol/L Unknown 135-145 F Ordering Physician UnknownLaboratory Kjgxzix3346-21-06 08:13:00Identifier 70049- 6 Result Time 2018-06-05 08:13:00Unknown Test Item Value Reference Range Comments Unknown (test code = 2823-3) 4.0 mmol/L Unknown 3.5-5.0 F Ordering Physician UnknownLaboratory Asmdake4839-75-37 08:13:00Identifier 73639- 6 Result Time 2018-06-05 08:13:00Unknown Test Item Value Reference Range Comments Unknown (test code = 2345-7) 87 mg/dL Unknown 70-100 F Ordering Physician UnknownLaboratory Ezslbrg7543-73-41 08:13:00Identifier 03658- 6 Result Time 2018-06-05 08:13:00Unknown Test Item Value Reference Range Comments Unknown (test code = 02757-5) 46.9 Unknown Unknown F Ordering Physician UnknownLaboratory Njyacxc7550-26-76 08:13:00Identifier 59829- 6 Result Time 2018-06-05 08:13:00Unknown Test Item Value Reference Range Comments Unknown (test code = NullTestCode) 56.7 Unknown Unknown F Ordering Physician UnknownLaboratory Oordfve7709-04-54 08:13:00Identifier 55092- 6 Result Time 2018-06-05 08:13:00Unknown Test Item Value Reference Range Comments Unknown (test code = 2160-0) 1.43 mg/dL Unknown 0.67-1.17 F Ordering Physician UnknownLaboratory Psccgpw9204-95-75 08:13:00Identifier 65515- 6 Result Time 2018-06-05 08:13:00Unknown Test Item Value Reference Range Comments Unknown (test code = 2075-0) 104 mmol/L Unknown 101-111 F Ordering Physician UnknownLaboratory Dhquaqz3951-97-37 08:13:00Identifier 17741- 6 Result Time 2018-06-05 08:13:00Unknown Test Item Value Reference Range Comments Unknown (test code = 2028-9) 24 mmol/L Unknown 22-32 F Ordering Physician UnknownLaboratory Fiscact2366-45-98 08:13:00Identifier 27103- 6 Result Time 2018-06-05 08:13:00Unknown Test Item Value Reference Range Comments Unknown (test code = 81440-8) 9.0 mg/dL Unknown 8.6-10.3 F Ordering Physician UnknownLaboratory Wxdfffl3040-33-42 08:13:00Identifier 82343- 6 Result Time 2018-06-05 08:13:00Unknown Test Item Value Reference Range Comments Unknown (test code = 3094-0) 24 mg/dL Unknown 6-24 F Ordering Physician UnknownLaboratory Iauvorb0334-64-40 08:13:00Identifier 40330- 6 Result Time 2018-06-05 08:13:00Unknown Test Item Value Reference Range Comments Unknown (test code = 3097-3) 16.8 Unknown 8-20 F Ordering Physician UnknownLaboratory Srvxkqm0309-17-41 08:13:00Identifier 35433- 6 Result Time 2018-06-05 08:13:00Unknown Test Item Value Reference Range Comments Unknown (test code = 38060-2) 8 mmol/L Unknown 2-11 F Ordering Physician UnknownLaboratory Itxizjt2124-48-55 08:13:00Identifier 43147- 6 Result Time 2018-06-05 08:13:00Unknown Test Item Value Reference Range Comments Unknown (test code = 89844-5) 27.4 10^3/uL Unknown 3.5-10.8 F Ordering Physician UnknownLaboratory Liwmahn4925-72-46 08:13:00Identifier 41901- 6 Result Time 2018-06-05 08:13:00Unknown Test Item Value Reference Range Comments Unknown (test code = 788-0) 24 % Unknown 10.5-15 F Ordering Physician UnknownLaboratory Krevjcc2115-07-78 08:13:00Identifier 55611- 6 Result Time 2018-06-05 08:13:00Unknown Test Item Value Reference Range Comments Unknown (test code = 789-8) 5.19 10^6 /uL Unknown 4.18-5.48 F Ordering Physician UnknownLaboratory Aumkbwd9004-43-61 08:13:00Identifier 94540- 6 Result Time 2018-06-05 08:13:00Unknown Test Item Value Reference Range Comments Unknown (test code = 777-3) 330 10^3/uL Unknown 150-450 F Ordering Physician UnknownLaboratory Defopos9885-83-68 08:13:00Identifier 59723- 6 Result Time 2018-06-05 08:13:00Unknown Test Item Value Reference Range Comments Unknown (test code = 90367-7) 0 Unknown Unknown F Ordering Physician UnknownLaboratory Vwdtafg8806-68-44 08:13:00Identifier 94259- 6 Result Time 2018-06-05 08:13:00Unknown Test Item Value Reference Range Comments Unknown (test code = 771-6) 0 10^3/ul Unknown Unknown F Ordering Physician UnknownLaboratory Wtzshrx9613-52-27 08:13:00Identifier 33263- 6 Result Time 2018-06-05 08:13:00Unknown Test Item Value Reference Range Comments Unknown (test code = 770-8) 84.7 % Unknown Unknown F Ordering Physician UnknownLaboratory Vseqxmy4599-28-72 08:13:00Identifier 50860- 6 Result Time 2018-06-05 08:13:00Unknown Test Item Value Reference Range Comments Unknown (test code = 5905-5) 8.6 % Unknown Unknown F Ordering Physician UnknownLaboratory Alntjws6458-90-90 08:13:00Identifier 81935- 6 Result Time 2018-06-05 08:13:00Unknown Test Item Value Reference Range Comments Unknown (test code = 26314-7) 8.6 fL Unknown 7.4-10.4 F Ordering Physician UnknownLaboratory Kqojmsf7029-59-48 08:13:00Identifier 26333- 6 Result Time 2018-06-05 08:13:00Unknown Test Item Value Reference Range Comments Unknown (test code = 787-2) 78 fL Unknown 80-94 F Ordering Physician UnknownLaboratory Clbbnpa2526-69-25 08:13:00Identifier 33753- 6 Result Time 2018-06-05 08:13:00Unknown Test Item Value Reference Range Comments Unknown (test code = 786-4) 31 g/dL Unknown 31-36 F Ordering Physician UnknownLaboratory Bzxzokc7256-97-75 08:13:00Identifier 11622- 6 Result Time 2018-06-05 08:13:00Unknown Test Item Value Reference Range Comments Unknown (test code = 785-6) 24 pg Unknown 27-31 F Ordering Physician UnknownLaboratory Lbofgpb8022-76-69 08:13:00Identifier 85442- 6 Result Time 2018-06-05 08:13:00Unknown Test Item Value Reference Range Comments Unknown (test code = 736-9) 5.4 % Unknown Unknown F Ordering Physician UnknownLaboratory Bsmtpep2519-25-73 08:13:00Identifier 99429- 6 Result Time 2018-06-05 08:13:00Unknown Test Item Value Reference Range Comments Unknown (test code = 718-7) 12.3 g/dL Unknown 14.0-18.0 F Ordering Physician UnknownLaboratory Ehmypsv0920-21-41 08:13:00Identifier 16249- 6 Result Time 2018-06-05 08:13:00Unknown Test Item Value Reference Range Comments Unknown (test code = 4544-3) 40 % Unknown 36-46 F Ordering Physician UnknownLaboratory Lyyxfkz8859-86-76 08:13:00Identifier 49705- 6 Result Time 2018-06-05 08:13:00Unknown Test Item Value Reference Range Comments Unknown (test code = 713-8) 0.8 % Unknown Unknown F Ordering Physician UnknownLaboratory Fmblbkc9777-38-87 08:13:00Identifier 13313- 6 Result Time 2018-06-05 08:13:00Unknown Test Item Value Reference Range Comments Unknown (test code = 706-2) 0.5 % Unknown Unknown F Ordering Physician UnknownLaboratory Hcnwyqj8175-70-44 08:13:00Identifier 58866- 6 Result Time 2018-06-05 08:13:00Unknown Test Item Value Reference Range Comments Unknown (test code = CXE9369) 23.2 10^3/ul Unknown 1.5-7.7 F Ordering Physician UnknownLaboratory Lsljrrj3630-87-16 08:13:00Identifier 02243- 6 Result Time 2018-06-05 08:13:00Unknown Test Item Value Reference Range Comments Unknown (test code = 742-7) 2.4 10^3/ul Unknown 0-0.8 F Ordering Physician UnknownLaboratory Opnrabh2018-12-30 08:13:00Identifier 00783- 6 Result Time 2018-06-05 08:13:00Unknown Test Item Value Reference Range Comments Unknown (test code = 731-0) 1.5 10^3/ul Unknown 1.0-4.8 F Ordering Physician UnknownLaboratory Jwjhesm4145-06-91 08:13:00Identifier 64138- 6 Result Time 2018-06-05 08:13:00Unknown Test Item Value Reference Range Comments Unknown (test code = 711-2) 0.2 10^3/ul Unknown 0-0.6 F Ordering Physician UnknownLaboratory Bqjwcqv9245-07-29 08:13:00Identifier 87483- 6 Result Time 2018-06-05 08:13:00Unknown Test Item Value Reference Range Comments Unknown (test code = 704-7) 0.1 10^3/ul Unknown 0-0.2 F Ordering Physician UnknownLaboratory Qgiblpm5748-10-90 06:46:00Identifier 87758- 6 Result Time 2018-06-04 06:46:00Unknown Test Item Value Reference Range Comments Unknown (test code = 13539-3) 0.05 ng/mL Unknown Unknown F Ordering Physician UnknownLaboratory Sihjoys8985-96-75 06:46:00Identifier 53372- 6 Result Time 2018-06-04 06:46:00Unknown Test Item Value Reference Range Comments Unknown (test code = 2777-1) 2.8 mg/dL Unknown 2.5-5.0 F Ordering Physician UnknownLaboratory Alpvmfv6984-39-18 06:46:00Identifier 75591- 6 Result Time 2018-06-04 06:46:00Unknown Test Item Value Reference Range Comments Unknown (test code = 24612-4) 2.5 mg/dL Unknown 1.9-2.7 F Ordering Physician UnknownLaboratory Dndvvrd2543-15-90 10:48:00Identifier 03310- 6 Result Time 2018-06-03 10:48:00Unknown Test Item Value Reference Range Comments Unknown (test code = NullTestCode) 6.0 Unknown 5-9 F Ordering Physician UnknownLaboratory Urqjddi5928-23-08 10:48:00Identifier 48138- 6 Result Time 2018-06-03 10:48:00Unknown Test Item Value Reference Range Comments Unknown (test code = 89723-0) 1.013 Unknown 1.010-1.030 F Ordering Physician UnknownLaboratory Kllixkg5928-04-06 10:15:00Identifier 09302- 6 Result Time 2018-06-03 10:15:00Unknown Test Item Value Reference Range Comments Unknown (test code = 3016-3) 3.38 mcIU/mL Unknown 0.34-5.60 F Ordering Physician UnknownLaboratory Uefwgxd3707-66-27 10:15:00Identifier 05992- 6 Result Time 2018-06-03 10:15:00Unknown Test Item Value Reference Range Comments Unknown (test code = 29130-9) 1.14 Unknown 0.77-1.02 F Ordering Physician UnknownLaboratory Wnlxonr2548-62-41 10:15:00Identifier 61512- 6 Result Time 2018-06-03 10:15:00Unknown Test Item Value Reference Range Comments Unknown (test code = 69675-3) 365 pg/mL Unknown Unknown F Ordering Physician UnknownLaboratory Mnvqkwc0677-76-99 10:15:00Identifier 72831- 6 Result Time 2018-06-03 10:15:00Unknown Test Item Value Reference Range Comments Unknown (test code = 2885-2) 8.9 g/dL Unknown 6.4-8.9 F Ordering Physician UnknownLaboratory Tniivfr8794-14-81 10:15:00Identifier 68577- 6 Result Time 2018-06-03 10:15:00Unknown Test Item Value Reference Range Comments Unknown (test code = 1975-2) 0.60 mg/dL Unknown 0.2-1.0 F Ordering Physician UnknownLaboratory Buubdkx9712-35-53 10:15:00Identifier 92584- 6 Result Time 2018-06-03 10:15:00Unknown Test Item Value Reference Range Comments Unknown (test code = NullTestCode) 4.9 g/dL Unknown 2-4 F Ordering Physician UnknownLaboratory Honqruz4862-42-75 10:15:00Identifier 20546- 6 Result Time 2018-06-03 10:15:00Unknown Test Item Value Reference Range Comments Unknown (test code = 1988-5) 11.17 mg/L Unknown 0-8.00 F Ordering Physician UnknownLaboratory Ekmmmrt3248-93-23 10:15:00Identifier 47394- 6 Result Time 2018-06-03 10:15:00Unknown Test Item Value Reference Range Comments Unknown (test code = 1920-8) 25 U/L Unknown 13-39 F Ordering Physician UnknownLaboratory Oulrrti1984-64-24 10:15:00Identifier 78989- 6 Result Time 2018-06-03 10:15:00Unknown Test Item Value Reference Range Comments Unknown (test code = 6768-6) 153 U/L Unknown 34-104 F Ordering Physician UnknownLaboratory Nyqodpu3410-13-20 10:15:00Identifier 68446- 6 Result Time 2018-06-03 10:15:00Unknown Test Item Value Reference Range Comments Unknown (test code = 1759-0) 0.8 Unknown 1-3 F Ordering Physician UnknownLaboratory Itheyeu8164-53-36 10:15:00Identifier 41542- 6 Result Time 2018-06-03 10:15:00Unknown Test Item Value Reference Range Comments Unknown (test code = 00228-2) 4.0 g/dL Unknown 3.2-5.2 F Ordering Physician UnknownLaboratory Gesadee2603-99-17 10:15:00Identifier 97920- 6 Result Time 2018-06-03 10:15:00Unknown Test Item Value Reference Range Comments Unknown (test code = 1742-6) 13 U/L Unknown 7-52 F Ordering Physician UnknownLaboratory Hmdqecr4102-13-24 10:15:00Identifier 48880- 6 Result Time 2018-06-03 10:15:00Unknown Test Item Value Reference Range Comments Unknown (test code = 2524-7) 0.9 mmol/L Unknown 0.5-2.0 F Ordering Physician Unknown
--- OUTSIDE RECORDS SUMMARY | 2019-06-13 09:57 | XMS REPORT ---
[...] Result Comments Laboratory Studies 2018-06-05 08:13:00 Identifier 28813-7 Result Time Unknown 2018-06-05 08:13:00 Test Item Value Reference Range Comments Unknown (test code = 2951-2) 136 mmol/L Unknown 135-145 F Ordering Physician UnknownLaboratory Pqokepa7145-64-33 08:13:00Identifier 88826- 6 Result Time 2018-06-05 08:13:00Unknown Test Item Value Reference Range Comments Unknown (test code = 2823-3) 4.0 mmol/L Unknown 3.5-5.0 F Ordering Physician UnknownLaboratory Pplidwd2509-61-73 08:13:00Identifier 20026- 6 Result Time 2018-06-05 08:13:00Unknown Test Item Value Reference Range Comments Unknown (test code = 2345-7) 87 mg/dL Unknown 70-100 F Ordering Physician UnknownLaboratory Sqoungn0675-45-79 08:13:00Identifier 52427- 6 Result Time 2018-06-05 08:13:00Unknown Test Item Value Reference Range Comments Unknown (test code = 56310-6) 46.9 Unknown Unknown F Ordering Physician UnknownLaboratory Pxnofdf3509-90-77 08:13:00Identifier 27781- 6 Result Time 2018-06-05 08:13:00Unknown Test Item Value Reference Range Comments Unknown (test code = NullTestCode) 56.7 Unknown Unknown F Ordering Physician UnknownLaboratory Cazslqy8874-80-97 08:13:00Identifier 44576- 6 Result Time 2018-06-05 08:13:00Unknown Test Item Value Reference Range Comments Unknown (test code = 2160-0) 1.43 mg/dL Unknown 0.67-1.17 F Ordering Physician UnknownLaboratory Lkyjgaj5470-83-68 08:13:00Identifier 06592- 6 Result Time 2018-06-05 08:13:00Unknown Test Item Value Reference Range Comments Unknown (test code = 2075-0) 104 mmol/L Unknown 101-111 F Ordering Physician UnknownLaboratory Cguhjcy5354-86-17 08:13:00Identifier 96143- 6 Result Time 2018-06-05 08:13:00Unknown Test Item Value Reference Range Comments Unknown (test code = 2028-9) 24 mmol/L Unknown 22-32 F Ordering Physician UnknownLaboratory Gpppkww1344-18-36 08:13:00Identifier 30431- 6 Result Time 2018-06-05 08:13:00Unknown Test Item Value Reference Range Comments Unknown (test code = 66024-0) 9.0 mg/dL Unknown 8.6-10.3 F Ordering Physician UnknownLaboratory Daqjziq6325-20-79 08:13:00Identifier 71991- 6 Result Time 2018-06-05 08:13:00Unknown Test Item Value Reference Range Comments Unknown (test code = 3094-0) 24 mg/dL Unknown 6-24 F Ordering Physician UnknownLaboratory Zmnsabd3588-30-87 08:13:00Identifier 98642- 6 Result Time 2018-06-05 08:13:00Unknown Test Item Value Reference Range Comments Unknown (test code = 3097-3) 16.8 Unknown 8-20 F Ordering Physician UnknownLaboratory Nvbcftw1668-26-19 08:13:00Identifier 30443- 6 Result Time 2018-06-05 08:13:00Unknown Test Item Value Reference Range Comments Unknown (test code = 84428-2) 8 mmol/L Unknown 2-11 F Ordering Physician UnknownLaboratory Gfbxihg5835-56-90 08:13:00Identifier 53979- 6 Result Time 2018-06-05 08:13:00Unknown Test Item Value Reference Range Comments Unknown (test code = 76725-8) 27.4 10^3/uL Unknown 3.5-10.8 F Ordering Physician UnknownLaboratory Ofykaxe3414-43-65 08:13:00Identifier 49162- 6 Result Time 2018-06-05 08:13:00Unknown Test Item Value Reference Range Comments Unknown (test code = 788-0) 24 % Unknown 10.5-15 F Ordering Physician UnknownLaboratory Hcyxpgb4264-79-10 08:13:00Identifier 00609- 6 Result Time 2018-06-05 08:13:00Unknown Test Item Value Reference Range Comments Unknown (test code = 789-8) 5.19 10^6 /uL Unknown 4.18-5.48 F Ordering Physician UnknownLaboratory Glyetkg7623-15-73 08:13:00Identifier 87815- 6 Result Time 2018-06-05 08:13:00Unknown Test Item Value Reference Range Comments Unknown (test code = 777-3) 330 10^3/uL Unknown 150-450 F Ordering Physician UnknownLaboratory Myeagbu2569-10-57 08:13:00Identifier 40071- 6 Result Time 2018-06-05 08:13:00Unknown Test Item Value Reference Range Comments Unknown (test code = 03583-5) 0 Unknown Unknown F Ordering Physician UnknownLaboratory Qbifuzz0543-97-23 08:13:00Identifier 53868- 6 Result Time 2018-06-05 08:13:00Unknown Test Item Value Reference Range Comments Unknown (test code = 771-6) 0 10^3/ul Unknown Unknown F Ordering Physician UnknownLaboratory Mqperue6959-68-25 08:13:00Identifier 30548- 6 Result Time 2018-06-05 08:13:00Unknown Test Item Value Reference Range Comments Unknown (test code = 770-8) 84.7 % Unknown Unknown F Ordering Physician UnknownLaboratory Rdrcnqo1061-35-96 08:13:00Identifier 82471- 6 Result Time 2018-06-05 08:13:00Unknown Test Item Value Reference Range Comments Unknown (test code = 5905-5) 8.6 % Unknown Unknown F Ordering Physician UnknownLaboratory Sljmjod1846-32-64 08:13:00Identifier 06357- 6 Result Time 2018-06-05 08:13:00Unknown Test Item Value Reference Range Comments Unknown (test code = 27849-0) 8.6 fL Unknown 7.4-10.4 F Ordering Physician UnknownLaboratory Rgewnrr8826-40-75 08:13:00Identifier 04113- 6 Result Time 2018-06-05 08:13:00Unknown Test Item Value Reference Range Comments Unknown (test code = 787-2) 78 fL Unknown 80-94 F Ordering Physician UnknownLaboratory Ofemyxq6215-05-08 08:13:00Identifier 69690- 6 Result Time 2018-06-05 08:13:00Unknown Test Item Value Reference Range Comments Unknown (test code = 786-4) 31 g/dL Unknown 31-36 F Ordering Physician UnknownLaboratory Ftsdpgy6517-34-68 08:13:00Identifier 91020- 6 Result Time 2018-06-05 08:13:00Unknown Test Item Value Reference Range Comments Unknown (test code = 785-6) 24 pg Unknown 27-31 F Ordering Physician UnknownLaboratory Fnswcff3185-58-41 08:13:00Identifier 31333- 6 Result Time 2018-06-05 08:13:00Unknown Test Item Value Reference Range Comments Unknown (test code = 736-9) 5.4 % Unknown Unknown F Ordering Physician UnknownLaboratory Mcimxfz4766-88-01 08:13:00Identifier 12847- 6 Result Time 2018-06-05 08:13:00Unknown Test Item Value Reference Range Comments Unknown (test code = 718-7) 12.3 g/dL Unknown 14.0-18.0 F Ordering Physician UnknownLaboratory Kujltel2082-43-47 08:13:00Identifier 26772- 6 Result Time 2018-06-05 08:13:00Unknown Test Item Value Reference Range Comments Unknown (test code = 4544-3) 40 % Unknown 36-46 F Ordering Physician UnknownLaboratory Sausuae5925-83-65 08:13:00Identifier 77961- 6 Result Time 2018-06-05 08:13:00Unknown Test Item Value Reference Range Comments Unknown (test code = 713-8) 0.8 % Unknown Unknown F Ordering Physician UnknownLaboratory Nqitjws5369-76-83 08:13:00Identifier 63739- 6 Result Time 2018-06-05 08:13:00Unknown Test Item Value Reference Range Comments Unknown (test code = 706-2) 0.5 % Unknown Unknown F Ordering Physician UnknownLaboratory Fhkujpx4344-99-20 08:13:00Identifier 91428- 6 Result Time 2018-06-05 08:13:00Unknown Test Item Value Reference Range Comments Unknown (test code = XHV6743) 23.2 10^3/ul Unknown 1.5-7.7 F Ordering Physician UnknownLaboratory Ptvxuoz1509-95-11 08:13:00Identifier 98741- 6 Result Time 2018-06-05 08:13:00Unknown Test Item Value Reference Range Comments Unknown (test code = 742-7) 2.4 10^3/ul Unknown 0-0.8 F Ordering Physician UnknownLaboratory Iadcmfb7196-96-78 08:13:00Identifier 63463- 6 Result Time 2018-06-05 08:13:00Unknown Test Item Value Reference Range Comments Unknown (test code = 731-0) 1.5 10^3/ul Unknown 1.0-4.8 F Ordering Physician UnknownLaboratory Mfvldxy6659-65-38 08:13:00Identifier 08968- 6 Result Time 2018-06-05 08:13:00Unknown Test Item Value Reference Range Comments Unknown (test code = 711-2) 0.2 10^3/ul Unknown 0-0.6 F Ordering Physician UnknownLaboratory Rjezrsn6180-05-05 08:13:00Identifier 63076- 6 Result Time 2018-06-05 08:13:00Unknown Test Item Value Reference Range Comments Unknown (test code = 704-7) 0.1 10^3/ul Unknown 0-0.2 F Ordering Physician UnknownLaboratory Rqqpmhh0525-06-93 06:46:00Identifier 40962- 6 Result Time 2018-06-04 06:46:00Unknown Test Item Value Reference Range Comments Unknown (test code = 01946-5) 0.05 ng/mL Unknown Unknown F Ordering Physician UnknownLaboratory Rlrdwlg0834-29-99 06:46:00Identifier 88591- 6 Result Time 2018-06-04 06:46:00Unknown Test Item Value Reference Range Comments Unknown (test code = 2777-1) 2.8 mg/dL Unknown 2.5-5.0 F Ordering Physician UnknownLaboratory Ljofjqm2540-65-34 06:46:00Identifier 26892- 6 Result Time 2018-06-04 06:46:00Unknown Test Item Value Reference Range Comments Unknown (test code = 77790-1) 2.5 mg/dL Unknown 1.9-2.7 F Ordering Physician UnknownLaboratory Qwuugxw1822-47-27 10:48:00Identifier 76845- 6 Result Time 2018-06-03 10:48:00Unknown Test Item Value Reference Range Comments Unknown (test code = NullTestCode) 6.0 Unknown 5-9 F Ordering Physician UnknownLaboratory Mcemmip1478-12-16 10:48:00Identifier 06110- 6 Result Time 2018-06-03 10:48:00Unknown Test Item Value Reference Range Comments Unknown (test code = 42644-2) 1.013 Unknown 1.010-1.030 F Ordering Physician UnknownLaboratory Kiztglr6878-89-02 10:15:00Identifier 83791- 6 Result Time 2018-06-03 10:15:00Unknown Test Item Value Reference Range Comments Unknown (test code = 3016-3) 3.38 mcIU/mL Unknown 0.34-5.60 F Ordering Physician UnknownLaboratory Ztiuecv0099-28-25 10:15:00Identifier 32279- 6 Result Time 2018-06-03 10:15:00Unknown Test Item Value Reference Range Comments Unknown (test code = 13778-0) 1.14 Unknown 0.77-1.02 F Ordering Physician UnknownLaboratory Meqzvsg6661-24-45 10:15:00Identifier 02791- 6 Result Time 2018-06-03 10:15:00Unknown Test Item Value Reference Range Comments Unknown (test code = 19157-4) 365 pg/mL Unknown Unknown F Ordering Physician UnknownLaboratory Dadffeq9602-13-70 10:15:00Identifier 48783- 6 Result Time 2018-06-03 10:15:00Unknown Test Item Value Reference Range Comments Unknown (test code = 2885-2) 8.9 g/dL Unknown 6.4-8.9 F Ordering Physician UnknownLaboratory Dfzhntn0266-85-40 10:15:00Identifier 37114- 6 Result Time 2018-06-03 10:15:00Unknown Test Item Value Reference Range Comments Unknown (test code = 1975-2) 0.60 mg/dL Unknown 0.2-1.0 F Ordering Physician UnknownLaboratory Hyaawvv2869-34-14 10:15:00Identifier 83938- 6 Result Time 2018-06-03 10:15:00Unknown Test Item Value Reference Range Comments Unknown (test code = NullTestCode) 4.9 g/dL Unknown 2-4 F Ordering Physician UnknownLaboratory Uemfuoo3048-63-71 10:15:00Identifier 86338- 6 Result Time 2018-06-03 10:15:00Unknown Test Item Value Reference Range Comments Unknown (test code = 1988-5) 11.17 mg/L Unknown 0-8.00 F Ordering Physician UnknownLaboratory Ghcxopb2811-77-82 10:15:00Identifier 91770- 6 Result Time 2018-06-03 10:15:00Unknown Test Item Value Reference Range Comments Unknown (test code = 1920-8) 25 U/L Unknown 13-39 F Ordering Physician UnknownLaboratory Bcsxyma0146-15-43 10:15:00Identifier 36587- 6 Result Time 2018-06-03 10:15:00Unknown Test Item Value Reference Range Comments Unknown (test code = 6768-6) 153 U/L Unknown 34-104 F Ordering Physician UnknownLaboratory Kgnvdtv7197-48-02 10:15:00Identifier 87102- 6 Result Time 2018-06-03 10:15:00Unknown Test Item Value Reference Range Comments Unknown (test code = 1759-0) 0.8 Unknown 1-3 F Ordering Physician UnknownLaboratory Azvtexo5792-09-18 10:15:00Identifier 85198- 6 Result Time 2018-06-03 10:15:00Unknown Test Item Value Reference Range Comments Unknown (test code = 33651-5) 4.0 g/dL Unknown 3.2-5.2 F Ordering Physician UnknownLaboratory Xiqviwr3636-41-47 10:15:00Identifier 94678- 6 Result Time 2018-06-03 10:15:00Unknown Test Item Value Reference Range Comments Unknown (test code = 1742-6) 13 U/L Unknown 7-52 F Ordering Physician UnknownLaboratory Gedqkxj8353-80-28 10:15:00Identifier 56813- 6 Result Time 2018-06-03 10:15:00Unknown Test Item Value Reference Range Comments Unknown (test code = 2524-7) 0.9 mmol/L Unknown 0.5-2.0 F Ordering Physician Unknown
--- OUTSIDE RECORDS SUMMARY | 2019-06-13 09:57 | XMS REPORT ---
:1930 Author Organization [facility] Care Team Providers Name Role Phone [...] Result Comments Laboratory Studies 2018-06-05 08:13:00 Identifier [id number] Result Time Unknown 2018-06-05 08:13:00 Test Item Value Reference Range Comments Unknown (test code = 2951-2) 136 mmol/L Unknown 135-145 F Ordering Physician UnknownLaboratory Lddxnpt7105-44-35 08:13:00Identifier 16084- 6 Result Time 2018-06-05 08:13:00Unknown Test Item Value Reference Range Comments Unknown (test code = 2823-3) 4.0 mmol/L Unknown 3.5-5.0 F Ordering Physician UnknownLaboratory Xnwgwnh0149-34-13 08:13:00Identifier 00986- 6 Result Time 2018-06-05 08:13:00Unknown Test Item Value Reference Range Comments Unknown (test code = 2345-7) 87 mg/dL Unknown 70-100 F Ordering Physician UnknownLaboratory Hhfjhzf9264-89-23 08:13:00Identifier 67315- 6 Result Time 2018-06-05 08:13:00Unknown Test Item Value Reference Range Comments Unknown (test code = 56512-9) 46.9 Unknown Unknown F Ordering Physician UnknownLaboratory Offzfay8832-34-38 08:13:00Identifier 48566- 6 Result Time 2018-06-05 08:13:00Unknown Test Item Value Reference Range Comments Unknown (test code = NullTestCode) 56.7 Unknown Unknown F Ordering Physician UnknownLaboratory Ijgprld6999-98-21 08:13:00Identifier 80785- 6 Result Time 2018-06-05 08:13:00Unknown Test Item Value Reference Range Comments Unknown (test code = 2160-0) 1.43 mg/dL Unknown 0.67-1.17 F Ordering Physician UnknownLaboratory Abovodj2684-38-73 08:13:00Identifier 93914- 6 Result Time 2018-06-05 08:13:00Unknown Test Item Value Reference Range Comments Unknown (test code = 2075-0) 104 mmol/L Unknown 101-111 F Ordering Physician UnknownLaboratory Haxzuak7099-01-71 08:13:00Identifier 70231- 6 Result Time 2018-06-05 08:13:00Unknown Test Item Value Reference Range Comments Unknown (test code = 2028-9) 24 mmol/L Unknown 22-32 F Ordering Physician UnknownLaboratory Ltarjrx5160-57-97 08:13:00Identifier 22124- 6 Result Time 2018-06-05 08:13:00Unknown Test Item Value Reference Range Comments Unknown (test code = 95407-5) 9.0 mg/dL Unknown 8.6-10.3 F Ordering Physician UnknownLaboratory Psqzcqm6782-95-58 08:13:00Identifier 53201- 6 Result Time 2018-06-05 08:13:00Unknown Test Item Value Reference Range Comments Unknown (test code = 3094-0) 24 mg/dL Unknown 6-24 F Ordering Physician UnknownLaboratory Kjckzxb4116-55-78 08:13:00Identifier 80974- 6 Result Time 2018-06-05 08:13:00Unknown Test Item Value Reference Range Comments Unknown (test code = 3097-3) 16.8 Unknown 8-20 F Ordering Physician UnknownLaboratory Ipemxdo6331-28-94 08:13:00Identifier 63149- 6 Result Time 2018-06-05 08:13:00Unknown Test Item Value Reference Range Comments Unknown (test code = 26231-6) 8 mmol/L Unknown 2-11 F Ordering Physician UnknownLaboratory Ahhxqyy3134-78-61 08:13:00Identifier 15231- 6 Result Time 2018-06-05 08:13:00Unknown Test Item Value Reference Range Comments Unknown (test code = 86743-5) 27.4 10^3/uL Unknown 3.5-10.8 F Ordering Physician UnknownLaboratory Zvzmhki4308-16-31 08:13:00Identifier 18187- 6 Result Time 2018-06-05 08:13:00Unknown Test Item Value Reference Range Comments Unknown (test code = 788-0) 24 % Unknown 10.5-15 F Ordering Physician UnknownLaboratory Ntokaio8314-54-43 08:13:00Identifier 79827- 6 Result Time 2018-06-05 08:13:00Unknown Test Item Value Reference Range Comments Unknown (test code = 789-8) 5.19 10^6 /uL Unknown 4.18-5.48 F Ordering Physician UnknownLaboratory Ehnsvbm1496-59-10 08:13:00Identifier 63680- 6 Result Time 2018-06-05 08:13:00Unknown Test Item Value Reference Range Comments Unknown (test code = 777-3) 330 10^3/uL Unknown 150-450 F Ordering Physician UnknownLaboratory Bngyrzs1710-99-51 08:13:00Identifier 03442- 6 Result Time 2018-06-05 08:13:00Unknown Test Item Value Reference Range Comments Unknown (test code = 90017-9) 0 Unknown Unknown F Ordering Physician UnknownLaboratory Mrnzpad5557-44-66 08:13:00Identifier 79849- 6 Result Time 2018-06-05 08:13:00Unknown Test Item Value Reference Range Comments Unknown (test code = 771-6) 0 10^3/ul Unknown Unknown F Ordering Physician UnknownLaboratory Jyxtfti9973-83-89 08:13:00Identifier 82724- 6 Result Time 2018-06-05 08:13:00Unknown Test Item Value Reference Range Comments Unknown (test code = 770-8) 84.7 % Unknown Unknown F Ordering Physician UnknownLaboratory Vgzfpqt3523-01-05 08:13:00Identifier 65278- 6 Result Time 2018-06-05 08:13:00Unknown Test Item Value Reference Range Comments Unknown (test code = 5905-5) 8.6 % Unknown Unknown F Ordering Physician UnknownLaboratory Nwmsgmp5593-86-32 08:13:00Identifier 07878- 6 Result Time 2018-06-05 08:13:00Unknown Test Item Value Reference Range Comments Unknown (test code = 83284-9) 8.6 fL Unknown 7.4-10.4 F Ordering Physician UnknownLaboratory Jiexfeu5527-92-92 08:13:00Identifier 85702- 6 Result Time 2018-06-05 08:13:00Unknown Test Item Value Reference Range Comments Unknown (test code = 787-2) 78 fL Unknown 80-94 F Ordering Physician UnknownLaboratory Ncjosah6697-50-38 08:13:00Identifier 72219- 6 Result Time 2018-06-05 08:13:00Unknown Test Item Value Reference Range Comments Unknown (test code = 786-4) 31 g/dL Unknown 31-36 F Ordering Physician UnknownLaboratory Vzchjjg9210-74-16 08:13:00Identifier 69702- 6 Result Time 2018-06-05 08:13:00Unknown Test Item Value Reference Range Comments Unknown (test code = 785-6) 24 pg Unknown 27-31 F Ordering Physician UnknownLaboratory Wgrdbqc0819-29-87 08:13:00Identifier 81696- 6 Result Time 2018-06-05 08:13:00Unknown Test Item Value Reference Range Comments Unknown (test code = 736-9) 5.4 % Unknown Unknown F Ordering Physician UnknownLaboratory Nlkhuck1755-68-05 08:13:00Identifier 19712- 6 Result Time 2018-06-05 08:13:00Unknown Test Item Value Reference Range Comments Unknown (test code = 718-7) 12.3 g/dL Unknown 14.0-18.0 F Ordering Physician UnknownLaboratory Vuhnkbs1339-23-03 08:13:00Identifier 68618- 6 Result Time 2018-06-05 08:13:00Unknown Test Item Value Reference Range Comments Unknown (test code = 4544-3) 40 % Unknown 36-46 F Ordering Physician UnknownLaboratory Lisyrtg0448-43-25 08:13:00Identifier 00654- 6 Result Time 2018-06-05 08:13:00Unknown Test Item Value Reference Range Comments Unknown (test code = 713-8) 0.8 % Unknown Unknown F Ordering Physician UnknownLaboratory Kuwwude2543-54-81 08:13:00Identifier 24079- 6 Result Time 2018-06-05 08:13:00Unknown Test Item Value Reference Range Comments Unknown (test code = 706-2) 0.5 % Unknown Unknown F Ordering Physician UnknownLaboratory Hwpueip8386-53-08 08:13:00Identifier 75985- 6 Result Time 2018-06-05 08:13:00Unknown Test Item Value Reference Range Comments Unknown (test code = HAZ6924) 23.2 10^3/ul Unknown 1.5-7.7 F Ordering Physician UnknownLaboratory Noktnzy5531-88-12 08:13:00Identifier 92436- 6 Result Time 2018-06-05 08:13:00Unknown Test Item Value Reference Range Comments Unknown (test code = 742-7) 2.4 10^3/ul Unknown 0-0.8 F Ordering Physician UnknownLaboratory Oiugbce4641-29-18 08:13:00Identifier 14336- 6 Result Time 2018-06-05 08:13:00Unknown Test Item Value Reference Range Comments Unknown (test code = 731-0) 1.5 10^3/ul Unknown 1.0-4.8 F Ordering Physician UnknownLaboratory Oggbaou4604-15-97 08:13:00Identifier 94038- 6 Result Time 2018-06-05 08:13:00Unknown Test Item Value Reference Range Comments Unknown (test code = 711-2) 0.2 10^3/ul Unknown 0-0.6 F Ordering Physician UnknownLaboratory Riphspz6425-25-12 08:13:00Identifier 20127- 6 Result Time 2018-06-05 08:13:00Unknown Test Item Value Reference Range Comments Unknown (test code = 704-7) 0.1 10^3/ul Unknown 0-0.2 F Ordering Physician UnknownLaboratory Nxfkafa8570-48-46 06:46:00Identifier 04365- 6 Result Time 2018-06-04 06:46:00Unknown Test Item Value Reference Range Comments Unknown (test code = 29862-0) 0.05 ng/mL Unknown Unknown F Ordering Physician UnknownLaboratory Qwkbaqe1082-26-56 06:46:00Identifier 70914- 6 Result Time 2018-06-04 06:46:00Unknown Test Item Value Reference Range Comments Unknown (test code = 2777-1) 2.8 mg/dL Unknown 2.5-5.0 F Ordering Physician UnknownLaboratory Ptljviq6334-49-57 06:46:00Identifier 44849- 6 Result Time 2018-06-04 06:46:00Unknown Test Item Value Reference Range Comments Unknown (test code = 12701-8) 2.5 mg/dL Unknown 1.9-2.7 F Ordering Physician UnknownLaboratory Fgifsfq7489-24-45 10:48:00Identifier 45685- 6 Result Time 2018-06-03 10:48:00Unknown Test Item Value Reference Range Comments Unknown (test code = NullTestCode) 6.0 Unknown 5-9 F Ordering Physician UnknownLaboratory Azndiju8330-13-26 10:48:00Identifier 23639- 6 Result Time 2018-06-03 10:48:00Unknown Test Item Value Reference Range Comments Unknown (test code = 21332-5) 1.013 Unknown 1.010-1.030 F Ordering Physician UnknownLaboratory Bnjppuk8966-16-27 10:15:00Identifier 50934- 6 Result Time 2018-06-03 10:15:00Unknown Test Item Value Reference Range Comments Unknown (test code = 3016-3) 3.38 mcIU/mL Unknown 0.34-5.60 F Ordering Physician UnknownLaboratory Nuqdqyy1701-59-07 10:15:00Identifier 49815- 6 Result Time 2018-06-03 10:15:00Unknown Test Item Value Reference Range Comments Unknown (test code = 96756-5) 1.14 Unknown 0.77-1.02 F Ordering Physician UnknownLaboratory Loyiyaj6588-01-78 10:15:00Identifier 42652- 6 Result Time 2018-06-03 10:15:00Unknown Test Item Value Reference Range Comments Unknown (test code = 70721-1) 365 pg/mL Unknown Unknown F Ordering Physician UnknownLaboratory Zepxfrp9304-85-35 10:15:00Identifier 21975- 6 Result Time 2018-06-03 10:15:00Unknown Test Item Value Reference Range Comments Unknown (test code = 2885-2) 8.9 g/dL Unknown 6.4-8.9 F Ordering Physician UnknownLaboratory Krnhnfj9350-23-31 10:15:00Identifier 51591- 6 Result Time 2018-06-03 10:15:00Unknown Test Item Value Reference Range Comments Unknown (test code = 1975-2) 0.60 mg/dL Unknown 0.2-1.0 F Ordering Physician UnknownLaboratory Ufernub4765-83-82 10:15:00Identifier 34592- 6 Result Time 2018-06-03 10:15:00Unknown Test Item Value Reference Range Comments Unknown (test code = NullTestCode) 4.9 g/dL Unknown 2-4 F Ordering Physician UnknownLaboratory Hzcqqxg8525-69-29 10:15:00Identifier 06096- 6 Result Time 2018-06-03 10:15:00Unknown Test Item Value Reference Range Comments Unknown (test code = 1988-5) 11.17 mg/L Unknown 0-8.00 F Ordering Physician UnknownLaboratory Bntywqi0903-20-49 10:15:00Identifier 05276- 6 Result Time 2018-06-03 10:15:00Unknown Test Item Value Reference Range Comments Unknown (test code = 1920-8) 25 U/L Unknown 13-39 F Ordering Physician UnknownLaboratory Pikibct5008-93-62 10:15:00Identifier 10936- 6 Result Time 2018-06-03 10:15:00Unknown Test Item Value Reference Range Comments Unknown (test code = 6768-6) 153 U/L Unknown 34-104 F Ordering Physician UnknownLaboratory Wolpsgg6587-53-58 10:15:00Identifier 52619- 6 Result Time 2018-06-03 10:15:00Unknown Test Item Value Reference Range Comments Unknown (test code = 1759-0) 0.8 Unknown 1-3 F Ordering Physician UnknownLaboratory Ndxmtey6546-61-09 10:15:00Identifier 57762- 6 Result Time 2018-06-03 10:15:00Unknown Test Item Value Reference Range Comments Unknown (test code = 66792-8) 4.0 g/dL Unknown 3.2-5.2 F Ordering Physician UnknownLaboratory Ztgkorh8794-89-23 10:15:00Identifier 50857- 6 Result Time 2018-06-03 10:15:00Unknown Test Item Value Reference Range Comments Unknown (test code = 1742-6) 13 U/L Unknown 7-52 F Ordering Physician UnknownLaboratory Bzokbbv2054-83-12 10:15:00Identifier 80046- 6 Result Time 2018-06-03 10:15:00Unknown Test Item Value Reference Range Comments Unknown (test code = 2524-7) 0.9 mmol/L Unknown 0.5-2.0 F Ordering Physician Unknown
--- OUTSIDE RECORDS SUMMARY | 2019-06-13 09:57 | XMS REPORT ---
:1930 Author Organization [facility] Care Team Providers Name [...] Result Comments Laboratory Studies 2018-06-05 08:13:00 Identifier [id number] Result Time Unknown 2018-06-05 08:13:00 Test Item Value Reference Range Comments Unknown (test code = 2951-2) 136 mmol/L Unknown 135-145 F Ordering Physician UnknownLaboratory Irleenj2252-67-62 08:13:00Identifier 96099- 6 Result Time 2018-06-05 08:13:00Unknown Test Item Value Reference Range Comments Unknown (test code = 2823-3) 4.0 mmol/L Unknown 3.5-5.0 F Ordering Physician UnknownLaboratory Anktlvt0450-42-84 08:13:00Identifier 53640- 6 Result Time 2018-06-05 08:13:00Unknown Test Item Value Reference Range Comments Unknown (test code = 2345-7) 87 mg/dL Unknown 70-100 F Ordering Physician UnknownLaboratory Hkpmpqf4646-80-49 08:13:00Identifier 67069- 6 Result Time 2018-06-05 08:13:00Unknown Test Item Value Reference Range Comments Unknown (test code = 44350-6) 46.9 Unknown Unknown F Ordering Physician UnknownLaboratory Qbkvmod5245-67-89 08:13:00Identifier 74961- 6 Result Time 2018-06-05 08:13:00Unknown Test Item Value Reference Range Comments Unknown (test code = NullTestCode) 56.7 Unknown Unknown F Ordering Physician UnknownLaboratory Xfqzabz1181-91-47 08:13:00Identifier 69967- 6 Result Time 2018-06-05 08:13:00Unknown Test Item Value Reference Range Comments Unknown (test code = 2160-0) 1.43 mg/dL Unknown 0.67-1.17 F Ordering Physician UnknownLaboratory Nwszqbw7973-18-12 08:13:00Identifier 00779- 6 Result Time 2018-06-05 08:13:00Unknown Test Item Value Reference Range Comments Unknown (test code = 2075-0) 104 mmol/L Unknown 101-111 F Ordering Physician UnknownLaboratory Kpvorxm2966-54-71 08:13:00Identifier 84460- 6 Result Time 2018-06-05 08:13:00Unknown Test Item Value Reference Range Comments Unknown (test code = 2028-9) 24 mmol/L Unknown 22-32 F Ordering Physician UnknownLaboratory Oyiyyan7089-44-82 08:13:00Identifier 04523- 6 Result Time 2018-06-05 08:13:00Unknown Test Item Value Reference Range Comments Unknown (test code = 35731-6) 9.0 mg/dL Unknown 8.6-10.3 F Ordering Physician UnknownLaboratory Lhtozbp4156-43-63 08:13:00Identifier 09613- 6 Result Time 2018-06-05 08:13:00Unknown Test Item Value Reference Range Comments Unknown (test code = 3094-0) 24 mg/dL Unknown 6-24 F Ordering Physician UnknownLaboratory Gtcgwlo0895-30-05 08:13:00Identifier 36990- 6 Result Time 2018-06-05 08:13:00Unknown Test Item Value Reference Range Comments Unknown (test code = 3097-3) 16.8 Unknown 8-20 F Ordering Physician UnknownLaboratory Zxlpqqo7031-23-48 08:13:00Identifier 50335- 6 Result Time 2018-06-05 08:13:00Unknown Test Item Value Reference Range Comments Unknown (test code = 29197-9) 8 mmol/L Unknown 2-11 F Ordering Physician UnknownLaboratory Vzrdjmh5081-41-31 08:13:00Identifier 74457- 6 Result Time 2018-06-05 08:13:00Unknown Test Item Value Reference Range Comments Unknown (test code = 28488-8) 27.4 10^3/uL Unknown 3.5-10.8 F Ordering Physician UnknownLaboratory Ejgcgzd3459-84-68 08:13:00Identifier 42513- 6 Result Time 2018-06-05 08:13:00Unknown Test Item Value Reference Range Comments Unknown (test code = 788-0) 24 % Unknown 10.5-15 F Ordering Physician UnknownLaboratory Utffoil0676-49-79 08:13:00Identifier 28923- 6 Result Time 2018-06-05 08:13:00Unknown Test Item Value Reference Range Comments Unknown (test code = 789-8) 5.19 10^6 /uL Unknown 4.18-5.48 F Ordering Physician UnknownLaboratory Yurwazl7654-53-63 08:13:00Identifier 12010- 6 Result Time 2018-06-05 08:13:00Unknown Test Item Value Reference Range Comments Unknown (test code = 777-3) 330 10^3/uL Unknown 150-450 F Ordering Physician UnknownLaboratory Yezqfxh5502-52-34 08:13:00Identifier 85762- 6 Result Time 2018-06-05 08:13:00Unknown Test Item Value Reference Range Comments Unknown (test code = 70722-1) 0 Unknown Unknown F Ordering Physician UnknownLaboratory Zvcltma1976-22-17 08:13:00Identifier 72791- 6 Result Time 2018-06-05 08:13:00Unknown Test Item Value Reference Range Comments Unknown (test code = 771-6) 0 10^3/ul Unknown Unknown F Ordering Physician UnknownLaboratory Awjiluy1407-18-63 08:13:00Identifier 03654- 6 Result Time 2018-06-05 08:13:00Unknown Test Item Value Reference Range Comments Unknown (test code = 770-8) 84.7 % Unknown Unknown F Ordering Physician UnknownLaboratory Kfthzrj4056-84-87 08:13:00Identifier 16364- 6 Result Time 2018-06-05 08:13:00Unknown Test Item Value Reference Range Comments Unknown (test code = 5905-5) 8.6 % Unknown Unknown F Ordering Physician UnknownLaboratory Hpaowkc0365-94-48 08:13:00Identifier 30708- 6 Result Time 2018-06-05 08:13:00Unknown Test Item Value Reference Range Comments Unknown (test code = 60882-4) 8.6 fL Unknown 7.4-10.4 F Ordering Physician UnknownLaboratory Fbslfgt7675-55-05 08:13:00Identifier 07789- 6 Result Time 2018-06-05 08:13:00Unknown Test Item Value Reference Range Comments Unknown (test code = 787-2) 78 fL Unknown 80-94 F Ordering Physician UnknownLaboratory Eoornov5380-76-07 08:13:00Identifier 07572- 6 Result Time 2018-06-05 08:13:00Unknown Test Item Value Reference Range Comments Unknown (test code = 786-4) 31 g/dL Unknown 31-36 F Ordering Physician UnknownLaboratory Kwcyobb5037-01-48 08:13:00Identifier 08548- 6 Result Time 2018-06-05 08:13:00Unknown Test Item Value Reference Range Comments Unknown (test code = 785-6) 24 pg Unknown 27-31 F Ordering Physician UnknownLaboratory Wkohuxh7368-49-40 08:13:00Identifier 07375- 6 Result Time 2018-06-05 08:13:00Unknown Test Item Value Reference Range Comments Unknown (test code = 736-9) 5.4 % Unknown Unknown F Ordering Physician UnknownLaboratory Hapbbgx1981-40-79 08:13:00Identifier 37510- 6 Result Time 2018-06-05 08:13:00Unknown Test Item Value Reference Range Comments Unknown (test code = 718-7) 12.3 g/dL Unknown 14.0-18.0 F Ordering Physician UnknownLaboratory Nnorbhk3781-69-94 08:13:00Identifier 31249- 6 Result Time 2018-06-05 08:13:00Unknown Test Item Value Reference Range Comments Unknown (test code = 4544-3) 40 % Unknown 36-46 F Ordering Physician UnknownLaboratory Bgphuuw1705-12-51 08:13:00Identifier 32846- 6 Result Time 2018-06-05 08:13:00Unknown Test Item Value Reference Range Comments Unknown (test code = 713-8) 0.8 % Unknown Unknown F Ordering Physician UnknownLaboratory Qzuoxbd1013-82-49 08:13:00Identifier 87996- 6 Result Time 2018-06-05 08:13:00Unknown Test Item Value Reference Range Comments Unknown (test code = 706-2) 0.5 % Unknown Unknown F Ordering Physician UnknownLaboratory Kbwvssr8421-06-07 08:13:00Identifier 20149- 6 Result Time 2018-06-05 08:13:00Unknown Test Item Value Reference Range Comments Unknown (test code = CUZ9840) 23.2 10^3/ul Unknown 1.5-7.7 F Ordering Physician UnknownLaboratory Wbuitot9607-85-46 08:13:00Identifier 27157- 6 Result Time 2018-06-05 08:13:00Unknown Test Item Value Reference Range Comments Unknown (test code = 742-7) 2.4 10^3/ul Unknown 0-0.8 F Ordering Physician UnknownLaboratory Zfowkob7699-14-93 08:13:00Identifier 58647- 6 Result Time 2018-06-05 08:13:00Unknown Test Item Value Reference Range Comments Unknown (test code = 731-0) 1.5 10^3/ul Unknown 1.0-4.8 F Ordering Physician UnknownLaboratory Uoxshxn1640-56-11 08:13:00Identifier 24900- 6 Result Time 2018-06-05 08:13:00Unknown Test Item Value Reference Range Comments Unknown (test code = 711-2) 0.2 10^3/ul Unknown 0-0.6 F Ordering Physician UnknownLaboratory Ieejuyt4019-04-78 08:13:00Identifier 39339- 6 Result Time 2018-06-05 08:13:00Unknown Test Item Value Reference Range Comments Unknown (test code = 704-7) 0.1 10^3/ul Unknown 0-0.2 F Ordering Physician UnknownLaboratory Dxrmykp3004-69-41 06:46:00Identifier 82926- 6 Result Time 2018-06-04 06:46:00Unknown Test Item Value Reference Range Comments Unknown (test code = 40514-3) 0.05 ng/mL Unknown Unknown F Ordering Physician UnknownLaboratory Ukwyebz4793-61-07 06:46:00Identifier 86662- 6 Result Time 2018-06-04 06:46:00Unknown Test Item Value Reference Range Comments Unknown (test code = 2777-1) 2.8 mg/dL Unknown 2.5-5.0 F Ordering Physician UnknownLaboratory Koqocno9971-40-01 06:46:00Identifier 06880- 6 Result Time 2018-06-04 06:46:00Unknown Test Item Value Reference Range Comments Unknown (test code = 66828-6) 2.5 mg/dL Unknown 1.9-2.7 F Ordering Physician UnknownLaboratory Wopxjdi6365-39-67 10:48:00Identifier 41830- 6 Result Time 2018-06-03 10:48:00Unknown Test Item Value Reference Range Comments Unknown (test code = NullTestCode) 6.0 Unknown 5-9 F Ordering Physician UnknownLaboratory Iaunvps6602-13-48 10:48:00Identifier 98678- 6 Result Time 2018-06-03 10:48:00Unknown Test Item Value Reference Range Comments Unknown (test code = 91833-3) 1.013 Unknown 1.010-1.030 F Ordering Physician UnknownLaboratory Uffhcyv9857-59-31 10:15:00Identifier 69988- 6 Result Time 2018-06-03 10:15:00Unknown Test Item Value Reference Range Comments Unknown (test code = 3016-3) 3.38 mcIU/mL Unknown 0.34-5.60 F Ordering Physician UnknownLaboratory Gvxbknw1736-71-99 10:15:00Identifier 01238- 6 Result Time 2018-06-03 10:15:00Unknown Test Item Value Reference Range Comments Unknown (test code = 31299-5) 1.14 Unknown 0.77-1.02 F Ordering Physician UnknownLaboratory Fmrzqhl0948-88-48 10:15:00Identifier 24588- 6 Result Time 2018-06-03 10:15:00Unknown Test Item Value Reference Range Comments Unknown (test code = 59296-8) 365 pg/mL Unknown Unknown F Ordering Physician UnknownLaboratory Yzvixzd7616-81-00 10:15:00Identifier 52306- 6 Result Time 2018-06-03 10:15:00Unknown Test Item Value Reference Range Comments Unknown (test code = 2885-2) 8.9 g/dL Unknown 6.4-8.9 F Ordering Physician UnknownLaboratory Yawstie5122-51-17 10:15:00Identifier 03602- 6 Result Time 2018-06-03 10:15:00Unknown Test Item Value Reference Range Comments Unknown (test code = 1975-2) 0.60 mg/dL Unknown 0.2-1.0 F Ordering Physician UnknownLaboratory Pdemgeh4067-69-17 10:15:00Identifier 24564- 6 Result Time 2018-06-03 10:15:00Unknown Test Item Value Reference Range Comments Unknown (test code = NullTestCode) 4.9 g/dL Unknown 2-4 F Ordering Physician UnknownLaboratory Ucxtmas5501-13-57 10:15:00Identifier 77764- 6 Result Time 2018-06-03 10:15:00Unknown Test Item Value Reference Range Comments Unknown (test code = 1988-5) 11.17 mg/L Unknown 0-8.00 F Ordering Physician UnknownLaboratory Omnjdif7059-69-64 10:15:00Identifier 92981- 6 Result Time 2018-06-03 10:15:00Unknown Test Item Value Reference Range Comments Unknown (test code = 1920-8) 25 U/L Unknown 13-39 F Ordering Physician UnknownLaboratory Fgzzllh2505-33-13 10:15:00Identifier 88934- 6 Result Time 2018-06-03 10:15:00Unknown Test Item Value Reference Range Comments Unknown (test code = 6768-6) 153 U/L Unknown 34-104 F Ordering Physician UnknownLaboratory Jcdpwsy9488-67-39 10:15:00Identifier 15096- 6 Result Time 2018-06-03 10:15:00Unknown Test Item Value Reference Range Comments Unknown (test code = 1759-0) 0.8 Unknown 1-3 F Ordering Physician UnknownLaboratory Mbjapya1955-78-26 10:15:00Identifier 23873- 6 Result Time 2018-06-03 10:15:00Unknown Test Item Value Reference Range Comments Unknown (test code = 51674-2) 4.0 g/dL Unknown 3.2-5.2 F Ordering Physician UnknownLaboratory Rjykogp7011-89-44 10:15:00Identifier 54268- 6 Result Time 2018-06-03 10:15:00Unknown Test Item Value Reference Range Comments Unknown (test code = 1742-6) 13 U/L Unknown 7-52 F Ordering Physician UnknownLaboratory Ojppjbc7009-92-42 10:15:00Identifier 77643- 6 Result Time 2018-06-03 10:15:00Unknown Test Item Value Reference Range Comments Unknown (test code = 2524-7) 0.9 mmol/L Unknown 0.5-2.0 F Ordering Physician Unknown
--- OUTSIDE RECORDS SUMMARY | 2019-06-13 09:57 | XMS REPORT ---
[...] Result Comments Laboratory Studies 2018-06-05 08:13:00 Identifier [id number] Result Time Unknown 2018-06-05 08:13:00 Test Item Value Reference Range Comments Unknown (test code = 2951-2) 136 mmol/L Unknown 135-145 F Ordering Physician UnknownLaboratory Mokcjkn5923-38-24 08:13:00Identifier 10438- 6 Result Time 2018-06-05 08:13:00Unknown Test Item Value Reference Range Comments Unknown (test code = 2823-3) 4.0 mmol/L Unknown 3.5-5.0 F Ordering Physician UnknownLaboratory Phgtcfy6267-09-05 08:13:00Identifier 75020- 6 Result Time 2018-06-05 08:13:00Unknown Test Item Value Reference Range Comments Unknown (test code = 2345-7) 87 mg/dL Unknown 70-100 F Ordering Physician UnknownLaboratory Mucxsxl9034-58-06 08:13:00Identifier 32397- 6 Result Time 2018-06-05 08:13:00Unknown Test Item Value Reference Range Comments Unknown (test code = 58148-8) 46.9 Unknown Unknown F Ordering Physician UnknownLaboratory Wzwslos0722-69-12 08:13:00Identifier 51842- 6 Result Time 2018-06-05 08:13:00Unknown Test Item Value Reference Range Comments Unknown (test code = NullTestCode) 56.7 Unknown Unknown F Ordering Physician UnknownLaboratory Ysdfdil3433-98-74 08:13:00Identifier 92270- 6 Result Time 2018-06-05 08:13:00Unknown Test Item Value Reference Range Comments Unknown (test code = 2160-0) 1.43 mg/dL Unknown 0.67-1.17 F Ordering Physician UnknownLaboratory Ejwedyl7176-84-55 08:13:00Identifier 99970- 6 Result Time 2018-06-05 08:13:00Unknown Test Item Value Reference Range Comments Unknown (test code = 2075-0) 104 mmol/L Unknown 101-111 F Ordering Physician UnknownLaboratory Nlejxhj4644-74-99 08:13:00Identifier 39153- 6 Result Time 2018-06-05 08:13:00Unknown Test Item Value Reference Range Comments Unknown (test code = 2028-9) 24 mmol/L Unknown 22-32 F Ordering Physician UnknownLaboratory Rqgjwlo0867-03-76 08:13:00Identifier 91271- 6 Result Time 2018-06-05 08:13:00Unknown Test Item Value Reference Range Comments Unknown (test code = 37889-7) 9.0 mg/dL Unknown 8.6-10.3 F Ordering Physician UnknownLaboratory Pmyzhbf4992-23-31 08:13:00Identifier 18663- 6 Result Time 2018-06-05 08:13:00Unknown Test Item Value Reference Range Comments Unknown (test code = 3094-0) 24 mg/dL Unknown 6-24 F Ordering Physician UnknownLaboratory Saexznp2679-65-48 08:13:00Identifier 35749- 6 Result Time 2018-06-05 08:13:00Unknown Test Item Value Reference Range Comments Unknown (test code = 3097-3) 16.8 Unknown 8-20 F Ordering Physician UnknownLaboratory Zjvfija0980-61-96 08:13:00Identifier 35648- 6 Result Time 2018-06-05 08:13:00Unknown Test Item Value Reference Range Comments Unknown (test code = 65651-8) 8 mmol/L Unknown 2-11 F Ordering Physician UnknownLaboratory Qsjzluq4538-20-38 08:13:00Identifier 68368- 6 Result Time 2018-06-05 08:13:00Unknown Test Item Value Reference Range Comments Unknown (test code = 21973-7) 27.4 10^3/uL Unknown 3.5-10.8 F Ordering Physician UnknownLaboratory Jmssbsa9349-52-28 08:13:00Identifier 26988- 6 Result Time 2018-06-05 08:13:00Unknown Test Item Value Reference Range Comments Unknown (test code = 788-0) 24 % Unknown 10.5-15 F Ordering Physician UnknownLaboratory Vwevqil7809-06-66 08:13:00Identifier 11898- 6 Result Time 2018-06-05 08:13:00Unknown Test Item Value Reference Range Comments Unknown (test code = 789-8) 5.19 10^6 /uL Unknown 4.18-5.48 F Ordering Physician UnknownLaboratory Psmagvi8163-19-42 08:13:00Identifier 86676- 6 Result Time 2018-06-05 08:13:00Unknown Test Item Value Reference Range Comments Unknown (test code = 777-3) 330 10^3/uL Unknown 150-450 F Ordering Physician UnknownLaboratory Snnkcry0355-83-30 08:13:00Identifier 49630- 6 Result Time 2018-06-05 08:13:00Unknown Test Item Value Reference Range Comments Unknown (test code = 08057-0) 0 Unknown Unknown F Ordering Physician UnknownLaboratory Zauhcgh7869-09-57 08:13:00Identifier 23485- 6 Result Time 2018-06-05 08:13:00Unknown Test Item Value Reference Range Comments Unknown (test code = 771-6) 0 10^3/ul Unknown Unknown F Ordering Physician UnknownLaboratory Sflzhkz6734-20-34 08:13:00Identifier 59179- 6 Result Time 2018-06-05 08:13:00Unknown Test Item Value Reference Range Comments Unknown (test code = 770-8) 84.7 % Unknown Unknown F Ordering Physician UnknownLaboratory Hvipgsl6965-04-95 08:13:00Identifier 91294- 6 Result Time 2018-06-05 08:13:00Unknown Test Item Value Reference Range Comments Unknown (test code = 5905-5) 8.6 % Unknown Unknown F Ordering Physician UnknownLaboratory Pkhvllc5649-42-15 08:13:00Identifier 99953- 6 Result Time 2018-06-05 08:13:00Unknown Test Item Value Reference Range Comments Unknown (test code = 26085-3) 8.6 fL Unknown 7.4-10.4 F Ordering Physician UnknownLaboratory Bdajzpg6764-88-44 08:13:00Identifier 83975- 6 Result Time 2018-06-05 08:13:00Unknown Test Item Value Reference Range Comments Unknown (test code = 787-2) 78 fL Unknown 80-94 F Ordering Physician UnknownLaboratory Whkcatt9022-65-16 08:13:00Identifier 35491- 6 Result Time 2018-06-05 08:13:00Unknown Test Item Value Reference Range Comments Unknown (test code = 786-4) 31 g/dL Unknown 31-36 F Ordering Physician UnknownLaboratory Ugtirnk5198-44-70 08:13:00Identifier 63129- 6 Result Time 2018-06-05 08:13:00Unknown Test Item Value Reference Range Comments Unknown (test code = 785-6) 24 pg Unknown 27-31 F Ordering Physician UnknownLaboratory Ceapxrg3358-93-64 08:13:00Identifier 40942- 6 Result Time 2018-06-05 08:13:00Unknown Test Item Value Reference Range Comments Unknown (test code = 736-9) 5.4 % Unknown Unknown F Ordering Physician UnknownLaboratory Oejhhuo2767-47-76 08:13:00Identifier 40685- 6 Result Time 2018-06-05 08:13:00Unknown Test Item Value Reference Range Comments Unknown (test code = 718-7) 12.3 g/dL Unknown 14.0-18.0 F Ordering Physician UnknownLaboratory Uwoovfb7455-93-75 08:13:00Identifier 26593- 6 Result Time 2018-06-05 08:13:00Unknown Test Item Value Reference Range Comments Unknown (test code = 4544-3) 40 % Unknown 36-46 F Ordering Physician UnknownLaboratory Hcvhdiw0296-62-10 08:13:00Identifier 69465- 6 Result Time 2018-06-05 08:13:00Unknown Test Item Value Reference Range Comments Unknown (test code = 713-8) 0.8 % Unknown Unknown F Ordering Physician UnknownLaboratory Wqafdgo3164-22-07 08:13:00Identifier 13432- 6 Result Time 2018-06-05 08:13:00Unknown Test Item Value Reference Range Comments Unknown (test code = 706-2) 0.5 % Unknown Unknown F Ordering Physician UnknownLaboratory Sktvdbc6514-72-08 08:13:00Identifier 61276- 6 Result Time 2018-06-05 08:13:00Unknown Test Item Value Reference Range Comments Unknown (test code = DZX1108) 23.2 10^3/ul Unknown 1.5-7.7 F Ordering Physician UnknownLaboratory Vhkjvmg9777-60-76 08:13:00Identifier 17477- 6 Result Time 2018-06-05 08:13:00Unknown Test Item Value Reference Range Comments Unknown (test code = 742-7) 2.4 10^3/ul Unknown 0-0.8 F Ordering Physician UnknownLaboratory Kcdnqqa5316-21-30 08:13:00Identifier 46894- 6 Result Time 2018-06-05 08:13:00Unknown Test Item Value Reference Range Comments Unknown (test code = 731-0) 1.5 10^3/ul Unknown 1.0-4.8 F Ordering Physician UnknownLaboratory Yflirte9840-50-51 08:13:00Identifier 62237- 6 Result Time 2018-06-05 08:13:00Unknown Test Item Value Reference Range Comments Unknown (test code = 711-2) 0.2 10^3/ul Unknown 0-0.6 F Ordering Physician UnknownLaboratory Wdsruzu5249-12-79 08:13:00Identifier 27930- 6 Result Time 2018-06-05 08:13:00Unknown Test Item Value Reference Range Comments Unknown (test code = 704-7) 0.1 10^3/ul Unknown 0-0.2 F Ordering Physician UnknownLaboratory Khmnpme8724-23-41 06:46:00Identifier 92036- 6 Result Time 2018-06-04 06:46:00Unknown Test Item Value Reference Range Comments Unknown (test code = 11325-7) 0.05 ng/mL Unknown Unknown F Ordering Physician UnknownLaboratory Ixmfpat4467-07-78 06:46:00Identifier 09558- 6 Result Time 2018-06-04 06:46:00Unknown Test Item Value Reference Range Comments Unknown (test code = 2777-1) 2.8 mg/dL Unknown 2.5-5.0 F Ordering Physician UnknownLaboratory Cdxekyp4632-94-36 06:46:00Identifier 42071- 6 Result Time 2018-06-04 06:46:00Unknown Test Item Value Reference Range Comments Unknown (test code = 30345-8) 2.5 mg/dL Unknown 1.9-2.7 F Ordering Physician UnknownLaboratory Qxaypsc6440-68-43 10:48:00Identifier 66145- 6 Result Time 2018-06-03 10:48:00Unknown Test Item Value Reference Range Comments Unknown (test code = NullTestCode) 6.0 Unknown 5-9 F Ordering Physician UnknownLaboratory Xvkvqfb0761-48-50 10:48:00Identifier 14879- 6 Result Time 2018-06-03 10:48:00Unknown Test Item Value Reference Range Comments Unknown (test code = 50852-5) 1.013 Unknown 1.010-1.030 F Ordering Physician UnknownLaboratory Wjpchxt0464-69-83 10:15:00Identifier 78327- 6 Result Time 2018-06-03 10:15:00Unknown Test Item Value Reference Range Comments Unknown (test code = 3016-3) 3.38 mcIU/mL Unknown 0.34-5.60 F Ordering Physician UnknownLaboratory Jtlsogt9558-01-43 10:15:00Identifier 64039- 6 Result Time 2018-06-03 10:15:00Unknown Test Item Value Reference Range Comments Unknown (test code = 83640-3) 1.14 Unknown 0.77-1.02 F Ordering Physician UnknownLaboratory Vwbqefj6476-29-89 10:15:00Identifier 16715- 6 Result Time 2018-06-03 10:15:00Unknown Test Item Value Reference Range Comments Unknown (test code = 70028-3) 365 pg/mL Unknown Unknown F Ordering Physician UnknownLaboratory Kzqwstt3452-82-36 10:15:00Identifier 43202- 6 Result Time 2018-06-03 10:15:00Unknown Test Item Value Reference Range Comments Unknown (test code = 2885-2) 8.9 g/dL Unknown 6.4-8.9 F Ordering Physician UnknownLaboratory Buvivlf4821-58-16 10:15:00Identifier 96446- 6 Result Time 2018-06-03 10:15:00Unknown Test Item Value Reference Range Comments Unknown (test code = 1975-2) 0.60 mg/dL Unknown 0.2-1.0 F Ordering Physician UnknownLaboratory Jeankgw7787-13-69 10:15:00Identifier 33408- 6 Result Time 2018-06-03 10:15:00Unknown Test Item Value Reference Range Comments Unknown (test code = NullTestCode) 4.9 g/dL Unknown 2-4 F Ordering Physician UnknownLaboratory Rvrzsty8468-26-44 10:15:00Identifier 71439- 6 Result Time 2018-06-03 10:15:00Unknown Test Item Value Reference Range Comments Unknown (test code = 1988-5) 11.17 mg/L Unknown 0-8.00 F Ordering Physician UnknownLaboratory Avbzwwq9610-64-89 10:15:00Identifier 85782- 6 Result Time 2018-06-03 10:15:00Unknown Test Item Value Reference Range Comments Unknown (test code = 1920-8) 25 U/L Unknown 13-39 F Ordering Physician UnknownLaboratory Ngwrfir6149-74-45 10:15:00Identifier 94610- 6 Result Time 2018-06-03 10:15:00Unknown Test Item Value Reference Range Comments Unknown (test code = 6768-6) 153 U/L Unknown 34-104 F Ordering Physician UnknownLaboratory Svdepre4935-09-62 10:15:00Identifier 44062- 6 Result Time 2018-06-03 10:15:00Unknown Test Item Value Reference Range Comments Unknown (test code = 1759-0) 0.8 Unknown 1-3 F Ordering Physician UnknownLaboratory Gkpfath4628-74-87 10:15:00Identifier 06985- 6 Result Time 2018-06-03 10:15:00Unknown Test Item Value Reference Range Comments Unknown (test code = 03929-0) 4.0 g/dL Unknown 3.2-5.2 F Ordering Physician UnknownLaboratory Hjatsbi9138-92-84 10:15:00Identifier 96408- 6 Result Time 2018-06-03 10:15:00Unknown Test Item Value Reference Range Comments Unknown (test code = 1742-6) 13 U/L Unknown 7-52 F Ordering Physician UnknownLaboratory Rpgncfd5922-08-59 10:15:00Identifier 05421- 6 Result Time 2018-06-03 10:15:00Unknown Test Item Value Reference Range Comments Unknown (test code = 2524-7) 0.9 mmol/L Unknown 0.5-2.0 F Ordering Physician Unknown
--- OUTSIDE RECORDS SUMMARY | 2019-06-13 09:57 | XMS REPORT ---
[...] Result Comments Laboratory Studies 2018-06-05 08:13:00 Identifier [id number] Result Time Unknown 2018-06-05 08:13:00 Test Item Value Reference Range Comments Unknown (test code = 2951-2) 136 mmol/L Unknown 135-145 F Ordering Physician UnknownLaboratory Aexklez6883-11-17 08:13:00Identifier 02442- 6 Result Time 2018-06-05 08:13:00Unknown Test Item Value Reference Range Comments Unknown (test code = 2823-3) 4.0 mmol/L Unknown 3.5-5.0 F Ordering Physician UnknownLaboratory Nbnsxms8982-68-32 08:13:00Identifier 17849- 6 Result Time 2018-06-05 08:13:00Unknown Test Item Value Reference Range Comments Unknown (test code = 2345-7) 87 mg/dL Unknown 70-100 F Ordering Physician UnknownLaboratory Mmvxlqm8940-66-79 08:13:00Identifier 27354- 6 Result Time 2018-06-05 08:13:00Unknown Test Item Value Reference Range Comments Unknown (test code = 57606-0) 46.9 Unknown Unknown F Ordering Physician UnknownLaboratory Wyaqwyf7097-33-67 08:13:00Identifier 10156- 6 Result Time 2018-06-05 08:13:00Unknown Test Item Value Reference Range Comments Unknown (test code = NullTestCode) 56.7 Unknown Unknown F Ordering Physician UnknownLaboratory Sahwooc2962-61-01 08:13:00Identifier 85068- 6 Result Time 2018-06-05 08:13:00Unknown Test Item Value Reference Range Comments Unknown (test code = 2160-0) 1.43 mg/dL Unknown 0.67-1.17 F Ordering Physician UnknownLaboratory Tmqvfmh1639-73-59 08:13:00Identifier 77021- 6 Result Time 2018-06-05 08:13:00Unknown Test Item Value Reference Range Comments Unknown (test code = 2075-0) 104 mmol/L Unknown 101-111 F Ordering Physician UnknownLaboratory Uviizgs5038-63-50 08:13:00Identifier 90992- 6 Result Time 2018-06-05 08:13:00Unknown Test Item Value Reference Range Comments Unknown (test code = 2028-9) 24 mmol/L Unknown 22-32 F Ordering Physician UnknownLaboratory Jogarsc6901-53-67 08:13:00Identifier 04816- 6 Result Time 2018-06-05 08:13:00Unknown Test Item Value Reference Range Comments Unknown (test code = 13844-8) 9.0 mg/dL Unknown 8.6-10.3 F Ordering Physician UnknownLaboratory Jfkjuzf3168-07-15 08:13:00Identifier 02590- 6 Result Time 2018-06-05 08:13:00Unknown Test Item Value Reference Range Comments Unknown (test code = 3094-0) 24 mg/dL Unknown 6-24 F Ordering Physician UnknownLaboratory Cshqtbg7684-05-59 08:13:00Identifier 49224- 6 Result Time 2018-06-05 08:13:00Unknown Test Item Value Reference Range Comments Unknown (test code = 3097-3) 16.8 Unknown 8-20 F Ordering Physician UnknownLaboratory Oeffgjm2786-91-67 08:13:00Identifier 52969- 6 Result Time 2018-06-05 08:13:00Unknown Test Item Value Reference Range Comments Unknown (test code = 00804-9) 8 mmol/L Unknown 2-11 F Ordering Physician UnknownLaboratory Wywalum8831-91-57 08:13:00Identifier 42598- 6 Result Time 2018-06-05 08:13:00Unknown Test Item Value Reference Range Comments Unknown (test code = 26077-5) 27.4 10^3/uL Unknown 3.5-10.8 F Ordering Physician UnknownLaboratory Zeyjkab8889-41-98 08:13:00Identifier 30100- 6 Result Time 2018-06-05 08:13:00Unknown Test Item Value Reference Range Comments Unknown (test code = 788-0) 24 % Unknown 10.5-15 F Ordering Physician UnknownLaboratory Chmqabj6922-29-20 08:13:00Identifier 45966- 6 Result Time 2018-06-05 08:13:00Unknown Test Item Value Reference Range Comments Unknown (test code = 789-8) 5.19 10^6 /uL Unknown 4.18-5.48 F Ordering Physician UnknownLaboratory Ibhxchk1292-94-15 08:13:00Identifier 16074- 6 Result Time 2018-06-05 08:13:00Unknown Test Item Value Reference Range Comments Unknown (test code = 777-3) 330 10^3/uL Unknown 150-450 F Ordering Physician UnknownLaboratory Goaopyk6845-22-66 08:13:00Identifier 30793- 6 Result Time 2018-06-05 08:13:00Unknown Test Item Value Reference Range Comments Unknown (test code = 49073-0) 0 Unknown Unknown F Ordering Physician UnknownLaboratory Ircrdqe9679-31-30 08:13:00Identifier 71493- 6 Result Time 2018-06-05 08:13:00Unknown Test Item Value Reference Range Comments Unknown (test code = 771-6) 0 10^3/ul Unknown Unknown F Ordering Physician UnknownLaboratory Thyptuj8714-19-77 08:13:00Identifier 33807- 6 Result Time 2018-06-05 08:13:00Unknown Test Item Value Reference Range Comments Unknown (test code = 770-8) 84.7 % Unknown Unknown F Ordering Physician UnknownLaboratory Hiyqklv8680-54-25 08:13:00Identifier 22956- 6 Result Time 2018-06-05 08:13:00Unknown Test Item Value Reference Range Comments Unknown (test code = 5905-5) 8.6 % Unknown Unknown F Ordering Physician UnknownLaboratory Ayeanrx1155-24-15 08:13:00Identifier 01867- 6 Result Time 2018-06-05 08:13:00Unknown Test Item Value Reference Range Comments Unknown (test code = 35173-4) 8.6 fL Unknown 7.4-10.4 F Ordering Physician UnknownLaboratory Gkvmyvw6180-40-97 08:13:00Identifier 68091- 6 Result Time 2018-06-05 08:13:00Unknown Test Item Value Reference Range Comments Unknown (test code = 787-2) 78 fL Unknown 80-94 F Ordering Physician UnknownLaboratory Lpcboev6091-94-88 08:13:00Identifier 05053- 6 Result Time 2018-06-05 08:13:00Unknown Test Item Value Reference Range Comments Unknown (test code = 786-4) 31 g/dL Unknown 31-36 F Ordering Physician UnknownLaboratory Wbfuivf3628-14-96 08:13:00Identifier 12342- 6 Result Time 2018-06-05 08:13:00Unknown Test Item Value Reference Range Comments Unknown (test code = 785-6) 24 pg Unknown 27-31 F Ordering Physician UnknownLaboratory Xvhplth3159-70-79 08:13:00Identifier 92902- 6 Result Time 2018-06-05 08:13:00Unknown Test Item Value Reference Range Comments Unknown (test code = 736-9) 5.4 % Unknown Unknown F Ordering Physician UnknownLaboratory Zvosuhk5870-79-51 08:13:00Identifier 48111- 6 Result Time 2018-06-05 08:13:00Unknown Test Item Value Reference Range Comments Unknown (test code = 718-7) 12.3 g/dL Unknown 14.0-18.0 F Ordering Physician UnknownLaboratory Ekowsth4405-91-15 08:13:00Identifier 92210- 6 Result Time 2018-06-05 08:13:00Unknown Test Item Value Reference Range Comments Unknown (test code = 4544-3) 40 % Unknown 36-46 F Ordering Physician UnknownLaboratory Bcbufsf0888-64-68 08:13:00Identifier 70589- 6 Result Time 2018-06-05 08:13:00Unknown Test Item Value Reference Range Comments Unknown (test code = 713-8) 0.8 % Unknown Unknown F Ordering Physician UnknownLaboratory Crvadmp9992-79-68 08:13:00Identifier 58587- 6 Result Time 2018-06-05 08:13:00Unknown Test Item Value Reference Range Comments Unknown (test code = 706-2) 0.5 % Unknown Unknown F Ordering Physician UnknownLaboratory Xescnju3547-81-10 08:13:00Identifier 26326- 6 Result Time 2018-06-05 08:13:00Unknown Test Item Value Reference Range Comments Unknown (test code = KZH2316) 23.2 10^3/ul Unknown 1.5-7.7 F Ordering Physician UnknownLaboratory Gljgusx1874-31-58 08:13:00Identifier 89826- 6 Result Time 2018-06-05 08:13:00Unknown Test Item Value Reference Range Comments Unknown (test code = 742-7) 2.4 10^3/ul Unknown 0-0.8 F Ordering Physician UnknownLaboratory Cknmfbq7586-70-58 08:13:00Identifier 26462- 6 Result Time 2018-06-05 08:13:00Unknown Test Item Value Reference Range Comments Unknown (test code = 731-0) 1.5 10^3/ul Unknown 1.0-4.8 F Ordering Physician UnknownLaboratory Qoxgqzg0460-70-71 08:13:00Identifier 26713- 6 Result Time 2018-06-05 08:13:00Unknown Test Item Value Reference Range Comments Unknown (test code = 711-2) 0.2 10^3/ul Unknown 0-0.6 F Ordering Physician UnknownLaboratory Ferwwxy3560-44-77 08:13:00Identifier 04475- 6 Result Time 2018-06-05 08:13:00Unknown Test Item Value Reference Range Comments Unknown (test code = 704-7) 0.1 10^3/ul Unknown 0-0.2 F Ordering Physician UnknownLaboratory Evlbeao0705-02-66 06:46:00Identifier 66086- 6 Result Time 2018-06-04 06:46:00Unknown Test Item Value Reference Range Comments Unknown (test code = 32687-9) 0.05 ng/mL Unknown Unknown F Ordering Physician UnknownLaboratory Jmtxdnu4402-15-51 06:46:00Identifier 26571- 6 Result Time 2018-06-04 06:46:00Unknown Test Item Value Reference Range Comments Unknown (test code = 2777-1) 2.8 mg/dL Unknown 2.5-5.0 F Ordering Physician UnknownLaboratory Sfyrwxy9098-18-76 06:46:00Identifier 50215- 6 Result Time 2018-06-04 06:46:00Unknown Test Item Value Reference Range Comments Unknown (test code = 13369-3) 2.5 mg/dL Unknown 1.9-2.7 F Ordering Physician UnknownLaboratory Nlxgqkq3493-16-35 10:48:00Identifier 69830- 6 Result Time 2018-06-03 10:48:00Unknown Test Item Value Reference Range Comments Unknown (test code = NullTestCode) 6.0 Unknown 5-9 F Ordering Physician UnknownLaboratory Pkeyhct1359-65-38 10:48:00Identifier 54283- 6 Result Time 2018-06-03 10:48:00Unknown Test Item Value Reference Range Comments Unknown (test code = 75798-5) 1.013 Unknown 1.010-1.030 F Ordering Physician UnknownLaboratory Gefmqpt2835-60-44 10:15:00Identifier 62783- 6 Result Time 2018-06-03 10:15:00Unknown Test Item Value Reference Range Comments Unknown (test code = 3016-3) 3.38 mcIU/mL Unknown 0.34-5.60 F Ordering Physician UnknownLaboratory Rmpvjgl3532-74-25 10:15:00Identifier 65619- 6 Result Time 2018-06-03 10:15:00Unknown Test Item Value Reference Range Comments Unknown (test code = 43415-1) 1.14 Unknown 0.77-1.02 F Ordering Physician UnknownLaboratory Rodknli6652-36-46 10:15:00Identifier 43424- 6 Result Time 2018-06-03 10:15:00Unknown Test Item Value Reference Range Comments Unknown (test code = 79265-8) 365 pg/mL Unknown Unknown F Ordering Physician UnknownLaboratory Nbjyajt5005-27-00 10:15:00Identifier 40263- 6 Result Time 2018-06-03 10:15:00Unknown Test Item Value Reference Range Comments Unknown (test code = 2885-2) 8.9 g/dL Unknown 6.4-8.9 F Ordering Physician UnknownLaboratory Rwuxooo7427-54-60 10:15:00Identifier 65361- 6 Result Time 2018-06-03 10:15:00Unknown Test Item Value Reference Range Comments Unknown (test code = 1975-2) 0.60 mg/dL Unknown 0.2-1.0 F Ordering Physician UnknownLaboratory Zenaoia4917-95-19 10:15:00Identifier 69107- 6 Result Time 2018-06-03 10:15:00Unknown Test Item Value Reference Range Comments Unknown (test code = NullTestCode) 4.9 g/dL Unknown 2-4 F Ordering Physician UnknownLaboratory Kniqekm2989-13-95 10:15:00Identifier 66415- 6 Result Time 2018-06-03 10:15:00Unknown Test Item Value Reference Range Comments Unknown (test code = 1988-5) 11.17 mg/L Unknown 0-8.00 F Ordering Physician UnknownLaboratory Cnzazvy9420-21-66 10:15:00Identifier 60614- 6 Result Time 2018-06-03 10:15:00Unknown Test Item Value Reference Range Comments Unknown (test code = 1920-8) 25 U/L Unknown 13-39 F Ordering Physician UnknownLaboratory Iusqand0454-65-94 10:15:00Identifier 75543- 6 Result Time 2018-06-03 10:15:00Unknown Test Item Value Reference Range Comments Unknown (test code = 6768-6) 153 U/L Unknown 34-104 F Ordering Physician UnknownLaboratory Heyddbg8161-33-79 10:15:00Identifier 35461- 6 Result Time 2018-06-03 10:15:00Unknown Test Item Value Reference Range Comments Unknown (test code = 1759-0) 0.8 Unknown 1-3 F Ordering Physician UnknownLaboratory Dlwtapy5258-28-70 10:15:00Identifier 09911- 6 Result Time 2018-06-03 10:15:00Unknown Test Item Value Reference Range Comments Unknown (test code = 92685-1) 4.0 g/dL Unknown 3.2-5.2 F Ordering Physician UnknownLaboratory Ynazewt7450-82-38 10:15:00Identifier 32106- 6 Result Time 2018-06-03 10:15:00Unknown Test Item Value Reference Range Comments Unknown (test code = 1742-6) 13 U/L Unknown 7-52 F Ordering Physician UnknownLaboratory Lvcuupq0613-06-17 10:15:00Identifier 84438- 6 Result Time 2018-06-03 10:15:00Unknown Test Item Value Reference Range Comments Unknown (test code = 2524-7) 0.9 mmol/L Unknown 0.5-2.0 F Ordering Physician Unknown
--- OUTSIDE RECORDS SUMMARY | 2019-06-13 09:57 | XMS REPORT ---
:1930 Author Organization [facility] Care Team Providers Name Role Phone Unavailable [...] Result Comments Laboratory Studies 2018-06-05 08:13:00 Identifier [id number] Result Time Unknown 2018-06-05 08:13:00 Test Item Value Reference Range Comments Unknown (test code = 2951-2) 136 mmol/L Unknown 135-145 F Ordering Physician UnknownLaboratory Nbsnyfn1255-45-33 08:13:00Identifier 61444- 6 Result Time 2018-06-05 08:13:00Unknown Test Item Value Reference Range Comments Unknown (test code = 2823-3) 4.0 mmol/L Unknown 3.5-5.0 F Ordering Physician UnknownLaboratory Chrhwqs8532-61-65 08:13:00Identifier 55000- 6 Result Time 2018-06-05 08:13:00Unknown Test Item Value Reference Range Comments Unknown (test code = 2345-7) 87 mg/dL Unknown 70-100 F Ordering Physician UnknownLaboratory Ponufib7739-39-37 08:13:00Identifier 40150- 6 Result Time 2018-06-05 08:13:00Unknown Test Item Value Reference Range Comments Unknown (test code = 42262-8) 46.9 Unknown Unknown F Ordering Physician UnknownLaboratory Szhcktq8064-96-89 08:13:00Identifier 71266- 6 Result Time 2018-06-05 08:13:00Unknown Test Item Value Reference Range Comments Unknown (test code = NullTestCode) 56.7 Unknown Unknown F Ordering Physician UnknownLaboratory Wbnoppk7229-55-81 08:13:00Identifier 20672- 6 Result Time 2018-06-05 08:13:00Unknown Test Item Value Reference Range Comments Unknown (test code = 2160-0) 1.43 mg/dL Unknown 0.67-1.17 F Ordering Physician UnknownLaboratory Fhxpfah8535-17-07 08:13:00Identifier 28436- 6 Result Time 2018-06-05 08:13:00Unknown Test Item Value Reference Range Comments Unknown (test code = 2075-0) 104 mmol/L Unknown 101-111 F Ordering Physician UnknownLaboratory Fxmjvvj8858-76-04 08:13:00Identifier 32633- 6 Result Time 2018-06-05 08:13:00Unknown Test Item Value Reference Range Comments Unknown (test code = 2028-9) 24 mmol/L Unknown 22-32 F Ordering Physician UnknownLaboratory Suibbmh0538-40-68 08:13:00Identifier 13929- 6 Result Time 2018-06-05 08:13:00Unknown Test Item Value Reference Range Comments Unknown (test code = 50322-1) 9.0 mg/dL Unknown 8.6-10.3 F Ordering Physician UnknownLaboratory Rjvoaer3191-48-06 08:13:00Identifier 40181- 6 Result Time 2018-06-05 08:13:00Unknown Test Item Value Reference Range Comments Unknown (test code = 3094-0) 24 mg/dL Unknown 6-24 F Ordering Physician UnknownLaboratory Etmsntc8545-27-19 08:13:00Identifier 15959- 6 Result Time 2018-06-05 08:13:00Unknown Test Item Value Reference Range Comments Unknown (test code = 3097-3) 16.8 Unknown 8-20 F Ordering Physician UnknownLaboratory Getpbhj2507-11-93 08:13:00Identifier 93929- 6 Result Time 2018-06-05 08:13:00Unknown Test Item Value Reference Range Comments Unknown (test code = 37920-0) 8 mmol/L Unknown 2-11 F Ordering Physician UnknownLaboratory Qkpxvfj7695-02-70 08:13:00Identifier 11204- 6 Result Time 2018-06-05 08:13:00Unknown Test Item Value Reference Range Comments Unknown (test code = 77051-6) 27.4 10^3/uL Unknown 3.5-10.8 F Ordering Physician UnknownLaboratory Micmqaq1780-49-33 08:13:00Identifier 14694- 6 Result Time 2018-06-05 08:13:00Unknown Test Item Value Reference Range Comments Unknown (test code = 788-0) 24 % Unknown 10.5-15 F Ordering Physician UnknownLaboratory Ntffcwy5721-35-28 08:13:00Identifier 55712- 6 Result Time 2018-06-05 08:13:00Unknown Test Item Value Reference Range Comments Unknown (test code = 789-8) 5.19 10^6 /uL Unknown 4.18-5.48 F Ordering Physician UnknownLaboratory Fdptijl1311-38-90 08:13:00Identifier 80308- 6 Result Time 2018-06-05 08:13:00Unknown Test Item Value Reference Range Comments Unknown (test code = 777-3) 330 10^3/uL Unknown 150-450 F Ordering Physician UnknownLaboratory Nktdazt1138-60-84 08:13:00Identifier 04572- 6 Result Time 2018-06-05 08:13:00Unknown Test Item Value Reference Range Comments Unknown (test code = 13623-0) 0 Unknown Unknown F Ordering Physician UnknownLaboratory Svobcnm8874-02-48 08:13:00Identifier 60256- 6 Result Time 2018-06-05 08:13:00Unknown Test Item Value Reference Range Comments Unknown (test code = 771-6) 0 10^3/ul Unknown Unknown F Ordering Physician UnknownLaboratory Znjnfvi9548-76-84 08:13:00Identifier 85255- 6 Result Time 2018-06-05 08:13:00Unknown Test Item Value Reference Range Comments Unknown (test code = 770-8) 84.7 % Unknown Unknown F Ordering Physician UnknownLaboratory Fplvzbl8334-80-02 08:13:00Identifier 99340- 6 Result Time 2018-06-05 08:13:00Unknown Test Item Value Reference Range Comments Unknown (test code = 5905-5) 8.6 % Unknown Unknown F Ordering Physician UnknownLaboratory Htdjkul8349-49-06 08:13:00Identifier 09301- 6 Result Time 2018-06-05 08:13:00Unknown Test Item Value Reference Range Comments Unknown (test code = 88983-9) 8.6 fL Unknown 7.4-10.4 F Ordering Physician UnknownLaboratory Hlspdzg8188-79-62 08:13:00Identifier 63982- 6 Result Time 2018-06-05 08:13:00Unknown Test Item Value Reference Range Comments Unknown (test code = 787-2) 78 fL Unknown 80-94 F Ordering Physician UnknownLaboratory Zvocrqg3989-81-88 08:13:00Identifier 53400- 6 Result Time 2018-06-05 08:13:00Unknown Test Item Value Reference Range Comments Unknown (test code = 786-4) 31 g/dL Unknown 31-36 F Ordering Physician UnknownLaboratory Lglhqoc9942-73-57 08:13:00Identifier 25557- 6 Result Time 2018-06-05 08:13:00Unknown Test Item Value Reference Range Comments Unknown (test code = 785-6) 24 pg Unknown 27-31 F Ordering Physician UnknownLaboratory Mtpytnn3022-44-31 08:13:00Identifier 96777- 6 Result Time 2018-06-05 08:13:00Unknown Test Item Value Reference Range Comments Unknown (test code = 736-9) 5.4 % Unknown Unknown F Ordering Physician UnknownLaboratory Kwyhasc8275-81-11 08:13:00Identifier 60158- 6 Result Time 2018-06-05 08:13:00Unknown Test Item Value Reference Range Comments Unknown (test code = 718-7) 12.3 g/dL Unknown 14.0-18.0 F Ordering Physician UnknownLaboratory Rjplgav2129-97-41 08:13:00Identifier 30011- 6 Result Time 2018-06-05 08:13:00Unknown Test Item Value Reference Range Comments Unknown (test code = 4544-3) 40 % Unknown 36-46 F Ordering Physician UnknownLaboratory Tkzbdtw0128-82-75 08:13:00Identifier 80999- 6 Result Time 2018-06-05 08:13:00Unknown Test Item Value Reference Range Comments Unknown (test code = 713-8) 0.8 % Unknown Unknown F Ordering Physician UnknownLaboratory Tvngdfz9557-80-41 08:13:00Identifier 72863- 6 Result Time 2018-06-05 08:13:00Unknown Test Item Value Reference Range Comments Unknown (test code = 706-2) 0.5 % Unknown Unknown F Ordering Physician UnknownLaboratory Cqmxvwq3462-27-91 08:13:00Identifier 01250- 6 Result Time 2018-06-05 08:13:00Unknown Test Item Value Reference Range Comments Unknown (test code = EME9013) 23.2 10^3/ul Unknown 1.5-7.7 F Ordering Physician UnknownLaboratory Dngdlsr8133-44-31 08:13:00Identifier 85434- 6 Result Time 2018-06-05 08:13:00Unknown Test Item Value Reference Range Comments Unknown (test code = 742-7) 2.4 10^3/ul Unknown 0-0.8 F Ordering Physician UnknownLaboratory Crzdstt2651-84-05 08:13:00Identifier 28041- 6 Result Time 2018-06-05 08:13:00Unknown Test Item Value Reference Range Comments Unknown (test code = 731-0) 1.5 10^3/ul Unknown 1.0-4.8 F Ordering Physician UnknownLaboratory Wtbefxn6856-98-79 08:13:00Identifier 60309- 6 Result Time 2018-06-05 08:13:00Unknown Test Item Value Reference Range Comments Unknown (test code = 711-2) 0.2 10^3/ul Unknown 0-0.6 F Ordering Physician UnknownLaboratory Cjzkhsu2484-03-50 08:13:00Identifier 61984- 6 Result Time 2018-06-05 08:13:00Unknown Test Item Value Reference Range Comments Unknown (test code = 704-7) 0.1 10^3/ul Unknown 0-0.2 F Ordering Physician UnknownLaboratory Ydfqqmo4072-44-25 06:46:00Identifier 94563- 6 Result Time 2018-06-04 06:46:00Unknown Test Item Value Reference Range Comments Unknown (test code = 73611-4) 0.05 ng/mL Unknown Unknown F Ordering Physician UnknownLaboratory Gofuyxy3914-62-79 06:46:00Identifier 55769- 6 Result Time 2018-06-04 06:46:00Unknown Test Item Value Reference Range Comments Unknown (test code = 2777-1) 2.8 mg/dL Unknown 2.5-5.0 F Ordering Physician UnknownLaboratory Ktvkgzi2068-90-39 06:46:00Identifier 51419- 6 Result Time 2018-06-04 06:46:00Unknown Test Item Value Reference Range Comments Unknown (test code = 36316-3) 2.5 mg/dL Unknown 1.9-2.7 F Ordering Physician UnknownLaboratory Lqgenoe6912-84-06 10:48:00Identifier 31450- 6 Result Time 2018-06-03 10:48:00Unknown Test Item Value Reference Range Comments Unknown (test code = NullTestCode) 6.0 Unknown 5-9 F Ordering Physician UnknownLaboratory Vbeeism3648-22-94 10:48:00Identifier 99922- 6 Result Time 2018-06-03 10:48:00Unknown Test Item Value Reference Range Comments Unknown (test code = 69046-1) 1.013 Unknown 1.010-1.030 F Ordering Physician UnknownLaboratory Czujayw4867-91-55 10:15:00Identifier 77276- 6 Result Time 2018-06-03 10:15:00Unknown Test Item Value Reference Range Comments Unknown (test code = 3016-3) 3.38 mcIU/mL Unknown 0.34-5.60 F Ordering Physician UnknownLaboratory Fuexniy9433-86-13 10:15:00Identifier 92938- 6 Result Time 2018-06-03 10:15:00Unknown Test Item Value Reference Range Comments Unknown (test code = 89659-9) 1.14 Unknown 0.77-1.02 F Ordering Physician UnknownLaboratory Wtgymed3073-98-60 10:15:00Identifier 94572- 6 Result Time 2018-06-03 10:15:00Unknown Test Item Value Reference Range Comments Unknown (test code = 73697-8) 365 pg/mL Unknown Unknown F Ordering Physician UnknownLaboratory Wyydxkv2677-24-07 10:15:00Identifier 13260- 6 Result Time 2018-06-03 10:15:00Unknown Test Item Value Reference Range Comments Unknown (test code = 2885-2) 8.9 g/dL Unknown 6.4-8.9 F Ordering Physician UnknownLaboratory Bwofqpi1054-51-48 10:15:00Identifier 61324- 6 Result Time 2018-06-03 10:15:00Unknown Test Item Value Reference Range Comments Unknown (test code = 1975-2) 0.60 mg/dL Unknown 0.2-1.0 F Ordering Physician UnknownLaboratory Frereyj9656-77-08 10:15:00Identifier 27544- 6 Result Time 2018-06-03 10:15:00Unknown Test Item Value Reference Range Comments Unknown (test code = NullTestCode) 4.9 g/dL Unknown 2-4 F Ordering Physician UnknownLaboratory Olewbch5050-99-70 10:15:00Identifier 68413- 6 Result Time 2018-06-03 10:15:00Unknown Test Item Value Reference Range Comments Unknown (test code = 1988-5) 11.17 mg/L Unknown 0-8.00 F Ordering Physician UnknownLaboratory Lcajsnd9298-93-79 10:15:00Identifier 20614- 6 Result Time 2018-06-03 10:15:00Unknown Test Item Value Reference Range Comments Unknown (test code = 1920-8) 25 U/L Unknown 13-39 F Ordering Physician UnknownLaboratory Hyeyaqu6232-41-88 10:15:00Identifier 56056- 6 Result Time 2018-06-03 10:15:00Unknown Test Item Value Reference Range Comments Unknown (test code = 6768-6) 153 U/L Unknown 34-104 F Ordering Physician UnknownLaboratory Zumrmlg5549-71-77 10:15:00Identifier 10869- 6 Result Time 2018-06-03 10:15:00Unknown Test Item Value Reference Range Comments Unknown (test code = 1759-0) 0.8 Unknown 1-3 F Ordering Physician UnknownLaboratory Uubrawy4020-41-63 10:15:00Identifier 61344- 6 Result Time 2018-06-03 10:15:00Unknown Test Item Value Reference Range Comments Unknown (test code = 73028-7) 4.0 g/dL Unknown 3.2-5.2 F Ordering Physician UnknownLaboratory Deylysh3162-97-97 10:15:00Identifier 36966- 6 Result Time 2018-06-03 10:15:00Unknown Test Item Value Reference Range Comments Unknown (test code = 1742-6) 13 U/L Unknown 7-52 F Ordering Physician UnknownLaboratory Birzzfz0359-39-05 10:15:00Identifier 24732- 6 Result Time 2018-06-03 10:15:00Unknown Test Item Value Reference Range Comments Unknown (test code = 2524-7) 0.9 mmol/L Unknown 0.5-2.0 F Ordering Physician Unknown
--- OUTSIDE RECORDS SUMMARY | 2019-06-13 09:57 | XMS REPORT ---
[...] Result Comments Laboratory Studies 2018-06-05 08:13:00 Identifier 30273-7 Result Time Unknown 2018-06-05 08:13:00 Test Item Value Reference Range Comments Unknown (test code = 2951-2) 136 mmol/L Unknown 135-145 F Ordering Physician UnknownLaboratory Ueelwob9935-73-19 08:13:00Identifier 62248- 6 Result Time 2018-06-05 08:13:00Unknown Test Item Value Reference Range Comments Unknown (test code = 2823-3) 4.0 mmol/L Unknown 3.5-5.0 F Ordering Physician UnknownLaboratory Wrkpqju3115-34-76 08:13:00Identifier 88366- 6 Result Time 2018-06-05 08:13:00Unknown Test Item Value Reference Range Comments Unknown (test code = 2345-7) 87 mg/dL Unknown 70-100 F Ordering Physician UnknownLaboratory Qbzujfa8781-24-17 08:13:00Identifier 49891- 6 Result Time 2018-06-05 08:13:00Unknown Test Item Value Reference Range Comments Unknown (test code = 98060-2) 46.9 Unknown Unknown F Ordering Physician UnknownLaboratory Fmduyac0649-71-13 08:13:00Identifier 16650- 6 Result Time 2018-06-05 08:13:00Unknown Test Item Value Reference Range Comments Unknown (test code = NullTestCode) 56.7 Unknown Unknown F Ordering Physician UnknownLaboratory Ncchjln3858-44-71 08:13:00Identifier 05263- 6 Result Time 2018-06-05 08:13:00Unknown Test Item Value Reference Range Comments Unknown (test code = 2160-0) 1.43 mg/dL Unknown 0.67-1.17 F Ordering Physician UnknownLaboratory Qgrwjlr1801-33-70 08:13:00Identifier 46548- 6 Result Time 2018-06-05 08:13:00Unknown Test Item Value Reference Range Comments Unknown (test code = 2075-0) 104 mmol/L Unknown 101-111 F Ordering Physician UnknownLaboratory Limflhq7590-98-64 08:13:00Identifier 11623- 6 Result Time 2018-06-05 08:13:00Unknown Test Item Value Reference Range Comments Unknown (test code = 2028-9) 24 mmol/L Unknown 22-32 F Ordering Physician UnknownLaboratory Mpsymkw4653-32-12 08:13:00Identifier 20063- 6 Result Time 2018-06-05 08:13:00Unknown Test Item Value Reference Range Comments Unknown (test code = 89592-4) 9.0 mg/dL Unknown 8.6-10.3 F Ordering Physician UnknownLaboratory Hmzsouy5254-90-64 08:13:00Identifier 97612- 6 Result Time 2018-06-05 08:13:00Unknown Test Item Value Reference Range Comments Unknown (test code = 3094-0) 24 mg/dL Unknown 6-24 F Ordering Physician UnknownLaboratory Xogpbtn4694-45-84 08:13:00Identifier 91001- 6 Result Time 2018-06-05 08:13:00Unknown Test Item Value Reference Range Comments Unknown (test code = 3097-3) 16.8 Unknown 8-20 F Ordering Physician UnknownLaboratory Cpwxjzp3892-09-25 08:13:00Identifier 50420- 6 Result Time 2018-06-05 08:13:00Unknown Test Item Value Reference Range Comments Unknown (test code = 52297-5) 8 mmol/L Unknown 2-11 F Ordering Physician UnknownLaboratory Dbixetc9703-14-21 08:13:00Identifier 18077- 6 Result Time 2018-06-05 08:13:00Unknown Test Item Value Reference Range Comments Unknown (test code = 50083-3) 27.4 10^3/uL Unknown 3.5-10.8 F Ordering Physician UnknownLaboratory Ebvqirp2981-01-34 08:13:00Identifier 01727- 6 Result Time 2018-06-05 08:13:00Unknown Test Item Value Reference Range Comments Unknown (test code = 788-0) 24 % Unknown 10.5-15 F Ordering Physician UnknownLaboratory Npqevwy5241-33-65 08:13:00Identifier 78338- 6 Result Time 2018-06-05 08:13:00Unknown Test Item Value Reference Range Comments Unknown (test code = 789-8) 5.19 10^6 /uL Unknown 4.18-5.48 F Ordering Physician UnknownLaboratory Pkohqmp4227-35-23 08:13:00Identifier 71125- 6 Result Time 2018-06-05 08:13:00Unknown Test Item Value Reference Range Comments Unknown (test code = 777-3) 330 10^3/uL Unknown 150-450 F Ordering Physician UnknownLaboratory Jqgwevk5072-50-52 08:13:00Identifier 45549- 6 Result Time 2018-06-05 08:13:00Unknown Test Item Value Reference Range Comments Unknown (test code = 76148-2) 0 Unknown Unknown F Ordering Physician UnknownLaboratory Dgdxjze9503-22-81 08:13:00Identifier 14453- 6 Result Time 2018-06-05 08:13:00Unknown Test Item Value Reference Range Comments Unknown (test code = 771-6) 0 10^3/ul Unknown Unknown F Ordering Physician UnknownLaboratory Ubszsed7932-58-62 08:13:00Identifier 99950- 6 Result Time 2018-06-05 08:13:00Unknown Test Item Value Reference Range Comments Unknown (test code = 770-8) 84.7 % Unknown Unknown F Ordering Physician UnknownLaboratory Btpihra1047-82-61 08:13:00Identifier 89434- 6 Result Time 2018-06-05 08:13:00Unknown Test Item Value Reference Range Comments Unknown (test code = 5905-5) 8.6 % Unknown Unknown F Ordering Physician UnknownLaboratory Ayicawl7941-09-96 08:13:00Identifier 30866- 6 Result Time 2018-06-05 08:13:00Unknown Test Item Value Reference Range Comments Unknown (test code = 67327-4) 8.6 fL Unknown 7.4-10.4 F Ordering Physician UnknownLaboratory Lnmxsnz2212-99-48 08:13:00Identifier 39107- 6 Result Time 2018-06-05 08:13:00Unknown Test Item Value Reference Range Comments Unknown (test code = 787-2) 78 fL Unknown 80-94 F Ordering Physician UnknownLaboratory Snqsbaz7620-17-74 08:13:00Identifier 35063- 6 Result Time 2018-06-05 08:13:00Unknown Test Item Value Reference Range Comments Unknown (test code = 786-4) 31 g/dL Unknown 31-36 F Ordering Physician UnknownLaboratory Xbbinmm3608-09-62 08:13:00Identifier 84049- 6 Result Time 2018-06-05 08:13:00Unknown Test Item Value Reference Range Comments Unknown (test code = 785-6) 24 pg Unknown 27-31 F Ordering Physician UnknownLaboratory Dlyftyr5174-74-45 08:13:00Identifier 74072- 6 Result Time 2018-06-05 08:13:00Unknown Test Item Value Reference Range Comments Unknown (test code = 736-9) 5.4 % Unknown Unknown F Ordering Physician UnknownLaboratory Bgluxbf8206-00-85 08:13:00Identifier 47935- 6 Result Time 2018-06-05 08:13:00Unknown Test Item Value Reference Range Comments Unknown (test code = 718-7) 12.3 g/dL Unknown 14.0-18.0 F Ordering Physician UnknownLaboratory Gposqev0516-88-13 08:13:00Identifier 45727- 6 Result Time 2018-06-05 08:13:00Unknown Test Item Value Reference Range Comments Unknown (test code = 4544-3) 40 % Unknown 36-46 F Ordering Physician UnknownLaboratory Kxkxhbw9431-44-64 08:13:00Identifier 80096- 6 Result Time 2018-06-05 08:13:00Unknown Test Item Value Reference Range Comments Unknown (test code = 713-8) 0.8 % Unknown Unknown F Ordering Physician UnknownLaboratory Cweetyl7364-97-97 08:13:00Identifier 66956- 6 Result Time 2018-06-05 08:13:00Unknown Test Item Value Reference Range Comments Unknown (test code = 706-2) 0.5 % Unknown Unknown F Ordering Physician UnknownLaboratory Cwewtco5247-73-50 08:13:00Identifier 77256- 6 Result Time 2018-06-05 08:13:00Unknown Test Item Value Reference Range Comments Unknown (test code = OBV0256) 23.2 10^3/ul Unknown 1.5-7.7 F Ordering Physician UnknownLaboratory Yzlvjyp8864-96-92 08:13:00Identifier 15717- 6 Result Time 2018-06-05 08:13:00Unknown Test Item Value Reference Range Comments Unknown (test code = 742-7) 2.4 10^3/ul Unknown 0-0.8 F Ordering Physician UnknownLaboratory Wmjfuuk9218-41-89 08:13:00Identifier 36728- 6 Result Time 2018-06-05 08:13:00Unknown Test Item Value Reference Range Comments Unknown (test code = 731-0) 1.5 10^3/ul Unknown 1.0-4.8 F Ordering Physician UnknownLaboratory Svhpwfu5229-15-89 08:13:00Identifier 27002- 6 Result Time 2018-06-05 08:13:00Unknown Test Item Value Reference Range Comments Unknown (test code = 711-2) 0.2 10^3/ul Unknown 0-0.6 F Ordering Physician UnknownLaboratory Pkubohs6352-75-72 08:13:00Identifier 80235- 6 Result Time 2018-06-05 08:13:00Unknown Test Item Value Reference Range Comments Unknown (test code = 704-7) 0.1 10^3/ul Unknown 0-0.2 F Ordering Physician UnknownLaboratory Lqrypmx1963-70-36 06:46:00Identifier 91301- 6 Result Time 2018-06-04 06:46:00Unknown Test Item Value Reference Range Comments Unknown (test code = 82269-0) 0.05 ng/mL Unknown Unknown F Ordering Physician UnknownLaboratory Bxpkwke1051-56-82 06:46:00Identifier 04544- 6 Result Time 2018-06-04 06:46:00Unknown Test Item Value Reference Range Comments Unknown (test code = 2777-1) 2.8 mg/dL Unknown 2.5-5.0 F Ordering Physician UnknownLaboratory Xfgtrvt5698-27-96 06:46:00Identifier 45357- 6 Result Time 2018-06-04 06:46:00Unknown Test Item Value Reference Range Comments Unknown (test code = 07094-2) 2.5 mg/dL Unknown 1.9-2.7 F Ordering Physician UnknownLaboratory Tgkurmn0779-58-58 10:48:00Identifier 38573- 6 Result Time 2018-06-03 10:48:00Unknown Test Item Value Reference Range Comments Unknown (test code = NullTestCode) 6.0 Unknown 5-9 F Ordering Physician UnknownLaboratory Iyobphh0290-74-82 10:48:00Identifier 87741- 6 Result Time 2018-06-03 10:48:00Unknown Test Item Value Reference Range Comments Unknown (test code = 78456-3) 1.013 Unknown 1.010-1.030 F Ordering Physician UnknownLaboratory Ghusgzp4642-90-05 10:15:00Identifier 69068- 6 Result Time 2018-06-03 10:15:00Unknown Test Item Value Reference Range Comments Unknown (test code = 3016-3) 3.38 mcIU/mL Unknown 0.34-5.60 F Ordering Physician UnknownLaboratory Pdluzcn3733-08-73 10:15:00Identifier 09930- 6 Result Time 2018-06-03 10:15:00Unknown Test Item Value Reference Range Comments Unknown (test code = 01763-3) 1.14 Unknown 0.77-1.02 F Ordering Physician UnknownLaboratory Qmoosko1147-40-57 10:15:00Identifier 04684- 6 Result Time 2018-06-03 10:15:00Unknown Test Item Value Reference Range Comments Unknown (test code = 88993-0) 365 pg/mL Unknown Unknown F Ordering Physician UnknownLaboratory Blszwhp6230-02-95 10:15:00Identifier 97532- 6 Result Time 2018-06-03 10:15:00Unknown Test Item Value Reference Range Comments Unknown (test code = 2885-2) 8.9 g/dL Unknown 6.4-8.9 F Ordering Physician UnknownLaboratory Oghpwor4076-21-11 10:15:00Identifier 99140- 6 Result Time 2018-06-03 10:15:00Unknown Test Item Value Reference Range Comments Unknown (test code = 1975-2) 0.60 mg/dL Unknown 0.2-1.0 F Ordering Physician UnknownLaboratory Fueysxn1892-53-81 10:15:00Identifier 14481- 6 Result Time 2018-06-03 10:15:00Unknown Test Item Value Reference Range Comments Unknown (test code = NullTestCode) 4.9 g/dL Unknown 2-4 F Ordering Physician UnknownLaboratory Avzbwwn6475-64-53 10:15:00Identifier 59493- 6 Result Time 2018-06-03 10:15:00Unknown Test Item Value Reference Range Comments Unknown (test code = 1988-5) 11.17 mg/L Unknown 0-8.00 F Ordering Physician UnknownLaboratory Jwdhofv0945-02-32 10:15:00Identifier 05765- 6 Result Time 2018-06-03 10:15:00Unknown Test Item Value Reference Range Comments Unknown (test code = 1920-8) 25 U/L Unknown 13-39 F Ordering Physician UnknownLaboratory Uypiteu3726-34-13 10:15:00Identifier 08883- 6 Result Time 2018-06-03 10:15:00Unknown Test Item Value Reference Range Comments Unknown (test code = 6768-6) 153 U/L Unknown 34-104 F Ordering Physician UnknownLaboratory Tfkhhqb7675-81-59 10:15:00Identifier 34604- 6 Result Time 2018-06-03 10:15:00Unknown Test Item Value Reference Range Comments Unknown (test code = 1759-0) 0.8 Unknown 1-3 F Ordering Physician UnknownLaboratory Ftmyayo3996-77-70 10:15:00Identifier 58890- 6 Result Time 2018-06-03 10:15:00Unknown Test Item Value Reference Range Comments Unknown (test code = 69806-6) 4.0 g/dL Unknown 3.2-5.2 F Ordering Physician UnknownLaboratory Tcibncf4006-70-26 10:15:00Identifier 56371- 6 Result Time 2018-06-03 10:15:00Unknown Test Item Value Reference Range Comments Unknown (test code = 1742-6) 13 U/L Unknown 7-52 F Ordering Physician UnknownLaboratory Qwoxuky4222-11-81 10:15:00Identifier 21503- 6 Result Time 2018-06-03 10:15:00Unknown Test Item Value Reference Range Comments Unknown (test code = 2524-7) 0.9 mmol/L Unknown 0.5-2.0 F Ordering Physician Unknown
--- OUTSIDE RECORDS SUMMARY | 2019-06-13 09:57 | XMS REPORT ---
[...] Result Comments Laboratory Studies 2018-06-05 08:13:00 Identifier [id number] Result Time Unknown 2018-06-05 08:13:00 Test Item Value Reference Range Comments Unknown (test code = 2951-2) 136 mmol/L Unknown 135-145 F Ordering Physician UnknownLaboratory Wgzxfdc9261-63-09 08:13:00Identifier 32284- 6 Result Time 2018-06-05 08:13:00Unknown Test Item Value Reference Range Comments Unknown (test code = 2823-3) 4.0 mmol/L Unknown 3.5-5.0 F Ordering Physician UnknownLaboratory Swlpmiz6767-12-61 08:13:00Identifier 87227- 6 Result Time 2018-06-05 08:13:00Unknown Test Item Value Reference Range Comments Unknown (test code = 2345-7) 87 mg/dL Unknown 70-100 F Ordering Physician UnknownLaboratory Bgibayx1741-97-10 08:13:00Identifier 66620- 6 Result Time 2018-06-05 08:13:00Unknown Test Item Value Reference Range Comments Unknown (test code = 61485-1) 46.9 Unknown Unknown F Ordering Physician UnknownLaboratory Esiqxnp7250-22-57 08:13:00Identifier 92095- 6 Result Time 2018-06-05 08:13:00Unknown Test Item Value Reference Range Comments Unknown (test code = NullTestCode) 56.7 Unknown Unknown F Ordering Physician UnknownLaboratory Pygmerm8349-10-87 08:13:00Identifier 59246- 6 Result Time 2018-06-05 08:13:00Unknown Test Item Value Reference Range Comments Unknown (test code = 2160-0) 1.43 mg/dL Unknown 0.67-1.17 F Ordering Physician UnknownLaboratory Mudgvei9242-44-74 08:13:00Identifier 75814- 6 Result Time 2018-06-05 08:13:00Unknown Test Item Value Reference Range Comments Unknown (test code = 2075-0) 104 mmol/L Unknown 101-111 F Ordering Physician UnknownLaboratory Kquptob5421-59-15 08:13:00Identifier 27116- 6 Result Time 2018-06-05 08:13:00Unknown Test Item Value Reference Range Comments Unknown (test code = 2028-9) 24 mmol/L Unknown 22-32 F Ordering Physician UnknownLaboratory Ydhypfb3315-13-70 08:13:00Identifier 62921- 6 Result Time 2018-06-05 08:13:00Unknown Test Item Value Reference Range Comments Unknown (test code = 84176-6) 9.0 mg/dL Unknown 8.6-10.3 F Ordering Physician UnknownLaboratory Tagmlqt7428-32-86 08:13:00Identifier 05529- 6 Result Time 2018-06-05 08:13:00Unknown Test Item Value Reference Range Comments Unknown (test code = 3094-0) 24 mg/dL Unknown 6-24 F Ordering Physician UnknownLaboratory Dbukjaf1797-32-03 08:13:00Identifier 79091- 6 Result Time 2018-06-05 08:13:00Unknown Test Item Value Reference Range Comments Unknown (test code = 3097-3) 16.8 Unknown 8-20 F Ordering Physician UnknownLaboratory Srphzli4066-47-60 08:13:00Identifier 64212- 6 Result Time 2018-06-05 08:13:00Unknown Test Item Value Reference Range Comments Unknown (test code = 73270-0) 8 mmol/L Unknown 2-11 F Ordering Physician UnknownLaboratory Byoreac2761-52-12 08:13:00Identifier 94288- 6 Result Time 2018-06-05 08:13:00Unknown Test Item Value Reference Range Comments Unknown (test code = 70141-5) 27.4 10^3/uL Unknown 3.5-10.8 F Ordering Physician UnknownLaboratory Mgiylcm8606-15-82 08:13:00Identifier 83721- 6 Result Time 2018-06-05 08:13:00Unknown Test Item Value Reference Range Comments Unknown (test code = 788-0) 24 % Unknown 10.5-15 F Ordering Physician UnknownLaboratory Lwewxfd9330-97-22 08:13:00Identifier 52730- 6 Result Time 2018-06-05 08:13:00Unknown Test Item Value Reference Range Comments Unknown (test code = 789-8) 5.19 10^6 /uL Unknown 4.18-5.48 F Ordering Physician UnknownLaboratory Gdctora5277-79-69 08:13:00Identifier 88283- 6 Result Time 2018-06-05 08:13:00Unknown Test Item Value Reference Range Comments Unknown (test code = 777-3) 330 10^3/uL Unknown 150-450 F Ordering Physician UnknownLaboratory Ctmkger0869-79-96 08:13:00Identifier 45496- 6 Result Time 2018-06-05 08:13:00Unknown Test Item Value Reference Range Comments Unknown (test code = 55689-9) 0 Unknown Unknown F Ordering Physician UnknownLaboratory Jkfbdlp5238-65-70 08:13:00Identifier 13640- 6 Result Time 2018-06-05 08:13:00Unknown Test Item Value Reference Range Comments Unknown (test code = 771-6) 0 10^3/ul Unknown Unknown F Ordering Physician UnknownLaboratory Tomlbdb5809-75-90 08:13:00Identifier 51503- 6 Result Time 2018-06-05 08:13:00Unknown Test Item Value Reference Range Comments Unknown (test code = 770-8) 84.7 % Unknown Unknown F Ordering Physician UnknownLaboratory Pvqewau4446-63-82 08:13:00Identifier 80186- 6 Result Time 2018-06-05 08:13:00Unknown Test Item Value Reference Range Comments Unknown (test code = 5905-5) 8.6 % Unknown Unknown F Ordering Physician UnknownLaboratory Gnrhtnu8634-92-52 08:13:00Identifier 63315- 6 Result Time 2018-06-05 08:13:00Unknown Test Item Value Reference Range Comments Unknown (test code = 31183-4) 8.6 fL Unknown 7.4-10.4 F Ordering Physician UnknownLaboratory Ygrpdzj0278-65-01 08:13:00Identifier 15380- 6 Result Time 2018-06-05 08:13:00Unknown Test Item Value Reference Range Comments Unknown (test code = 787-2) 78 fL Unknown 80-94 F Ordering Physician UnknownLaboratory Zbacjiy7443-25-71 08:13:00Identifier 23174- 6 Result Time 2018-06-05 08:13:00Unknown Test Item Value Reference Range Comments Unknown (test code = 786-4) 31 g/dL Unknown 31-36 F Ordering Physician UnknownLaboratory Wjacvum8071-91-25 08:13:00Identifier 41132- 6 Result Time 2018-06-05 08:13:00Unknown Test Item Value Reference Range Comments Unknown (test code = 785-6) 24 pg Unknown 27-31 F Ordering Physician UnknownLaboratory Ljkhpxz3498-60-39 08:13:00Identifier 17131- 6 Result Time 2018-06-05 08:13:00Unknown Test Item Value Reference Range Comments Unknown (test code = 736-9) 5.4 % Unknown Unknown F Ordering Physician UnknownLaboratory Augiwbu0278-60-07 08:13:00Identifier 41836- 6 Result Time 2018-06-05 08:13:00Unknown Test Item Value Reference Range Comments Unknown (test code = 718-7) 12.3 g/dL Unknown 14.0-18.0 F Ordering Physician UnknownLaboratory Mkekhqe9353-36-31 08:13:00Identifier 15524- 6 Result Time 2018-06-05 08:13:00Unknown Test Item Value Reference Range Comments Unknown (test code = 4544-3) 40 % Unknown 36-46 F Ordering Physician UnknownLaboratory Ktkkari4335-74-49 08:13:00Identifier 53148- 6 Result Time 2018-06-05 08:13:00Unknown Test Item Value Reference Range Comments Unknown (test code = 713-8) 0.8 % Unknown Unknown F Ordering Physician UnknownLaboratory Lewctgn1651-36-37 08:13:00Identifier 28364- 6 Result Time 2018-06-05 08:13:00Unknown Test Item Value Reference Range Comments Unknown (test code = 706-2) 0.5 % Unknown Unknown F Ordering Physician UnknownLaboratory Ytwnwds9474-60-48 08:13:00Identifier 68716- 6 Result Time 2018-06-05 08:13:00Unknown Test Item Value Reference Range Comments Unknown (test code = LKH1328) 23.2 10^3/ul Unknown 1.5-7.7 F Ordering Physician UnknownLaboratory Abevtke8220-40-42 08:13:00Identifier 18392- 6 Result Time 2018-06-05 08:13:00Unknown Test Item Value Reference Range Comments Unknown (test code = 742-7) 2.4 10^3/ul Unknown 0-0.8 F Ordering Physician UnknownLaboratory Jbsolkr2467-92-60 08:13:00Identifier 21231- 6 Result Time 2018-06-05 08:13:00Unknown Test Item Value Reference Range Comments Unknown (test code = 731-0) 1.5 10^3/ul Unknown 1.0-4.8 F Ordering Physician UnknownLaboratory Apuweyr5620-69-94 08:13:00Identifier 86910- 6 Result Time 2018-06-05 08:13:00Unknown Test Item Value Reference Range Comments Unknown (test code = 711-2) 0.2 10^3/ul Unknown 0-0.6 F Ordering Physician UnknownLaboratory Wknfvjt1308-60-02 08:13:00Identifier 54048- 6 Result Time 2018-06-05 08:13:00Unknown Test Item Value Reference Range Comments Unknown (test code = 704-7) 0.1 10^3/ul Unknown 0-0.2 F Ordering Physician UnknownLaboratory Edjrpbm2137-18-48 06:46:00Identifier 92886- 6 Result Time 2018-06-04 06:46:00Unknown Test Item Value Reference Range Comments Unknown (test code = 99045-8) 0.05 ng/mL Unknown Unknown F Ordering Physician UnknownLaboratory Byajkkf2272-19-75 06:46:00Identifier 62805- 6 Result Time 2018-06-04 06:46:00Unknown Test Item Value Reference Range Comments Unknown (test code = 2777-1) 2.8 mg/dL Unknown 2.5-5.0 F Ordering Physician UnknownLaboratory Fvnkkge6452-46-26 06:46:00Identifier 26175- 6 Result Time 2018-06-04 06:46:00Unknown Test Item Value Reference Range Comments Unknown (test code = 17244-8) 2.5 mg/dL Unknown 1.9-2.7 F Ordering Physician UnknownLaboratory Yebyawm8272-17-98 10:48:00Identifier 75146- 6 Result Time 2018-06-03 10:48:00Unknown Test Item Value Reference Range Comments Unknown (test code = NullTestCode) 6.0 Unknown 5-9 F Ordering Physician UnknownLaboratory Uuvdlnr7728-26-60 10:48:00Identifier 00791- 6 Result Time 2018-06-03 10:48:00Unknown Test Item Value Reference Range Comments Unknown (test code = 21991-1) 1.013 Unknown 1.010-1.030 F Ordering Physician UnknownLaboratory Yoldivg1003-27-30 10:15:00Identifier 17938- 6 Result Time 2018-06-03 10:15:00Unknown Test Item Value Reference Range Comments Unknown (test code = 3016-3) 3.38 mcIU/mL Unknown 0.34-5.60 F Ordering Physician UnknownLaboratory Qhnaxsc8979-16-50 10:15:00Identifier 07401- 6 Result Time 2018-06-03 10:15:00Unknown Test Item Value Reference Range Comments Unknown (test code = 50559-8) 1.14 Unknown 0.77-1.02 F Ordering Physician UnknownLaboratory Ckzujie3305-53-51 10:15:00Identifier 04486- 6 Result Time 2018-06-03 10:15:00Unknown Test Item Value Reference Range Comments Unknown (test code = 57032-0) 365 pg/mL Unknown Unknown F Ordering Physician UnknownLaboratory Uybjaal9112-40-44 10:15:00Identifier 34595- 6 Result Time 2018-06-03 10:15:00Unknown Test Item Value Reference Range Comments Unknown (test code = 2885-2) 8.9 g/dL Unknown 6.4-8.9 F Ordering Physician UnknownLaboratory Kppprap5995-45-20 10:15:00Identifier 87031- 6 Result Time 2018-06-03 10:15:00Unknown Test Item Value Reference Range Comments Unknown (test code = 1975-2) 0.60 mg/dL Unknown 0.2-1.0 F Ordering Physician UnknownLaboratory Blkuxap0347-64-75 10:15:00Identifier 21329- 6 Result Time 2018-06-03 10:15:00Unknown Test Item Value Reference Range Comments Unknown (test code = NullTestCode) 4.9 g/dL Unknown 2-4 F Ordering Physician UnknownLaboratory Xygmtfv6088-98-54 10:15:00Identifier 54461- 6 Result Time 2018-06-03 10:15:00Unknown Test Item Value Reference Range Comments Unknown (test code = 1988-5) 11.17 mg/L Unknown 0-8.00 F Ordering Physician UnknownLaboratory Lnxzsve6062-03-35 10:15:00Identifier 09221- 6 Result Time 2018-06-03 10:15:00Unknown Test Item Value Reference Range Comments Unknown (test code = 1920-8) 25 U/L Unknown 13-39 F Ordering Physician UnknownLaboratory Xlbhrmx9092-19-99 10:15:00Identifier 63026- 6 Result Time 2018-06-03 10:15:00Unknown Test Item Value Reference Range Comments Unknown (test code = 6768-6) 153 U/L Unknown 34-104 F Ordering Physician UnknownLaboratory Tmkvero1460-42-18 10:15:00Identifier 54977- 6 Result Time 2018-06-03 10:15:00Unknown Test Item Value Reference Range Comments Unknown (test code = 1759-0) 0.8 Unknown 1-3 F Ordering Physician UnknownLaboratory Lhnzqch4270-03-93 10:15:00Identifier 14900- 6 Result Time 2018-06-03 10:15:00Unknown Test Item Value Reference Range Comments Unknown (test code = 22447-2) 4.0 g/dL Unknown 3.2-5.2 F Ordering Physician UnknownLaboratory Isdwpas6561-93-46 10:15:00Identifier 65661- 6 Result Time 2018-06-03 10:15:00Unknown Test Item Value Reference Range Comments Unknown (test code = 1742-6) 13 U/L Unknown 7-52 F Ordering Physician UnknownLaboratory Vemhjif7810-95-84 10:15:00Identifier 76813- 6 Result Time 2018-06-03 10:15:00Unknown Test Item Value Reference Range Comments Unknown (test code = 2524-7) 0.9 mmol/L Unknown 0.5-2.0 F Ordering Physician Unknown
--- OUTSIDE RECORDS SUMMARY | 2019-06-13 09:57 | XMS REPORT ---
[...] Result Comments Laboratory Studies 2018-06-05 08:13:00 Identifier [id number] Result Time Unknown 2018-06-05 08:13:00 Test Item Value Reference Range Comments Unknown (test code = 2951-2) 136 mmol/L Unknown 135-145 F Ordering Physician UnknownLaboratory Bzwiggg6543-07-85 08:13:00Identifier 62198- 6 Result Time 2018-06-05 08:13:00Unknown Test Item Value Reference Range Comments Unknown (test code = 2823-3) 4.0 mmol/L Unknown 3.5-5.0 F Ordering Physician UnknownLaboratory Rtzjtks5696-95-66 08:13:00Identifier 41945- 6 Result Time 2018-06-05 08:13:00Unknown Test Item Value Reference Range Comments Unknown (test code = 2345-7) 87 mg/dL Unknown 70-100 F Ordering Physician UnknownLaboratory Kxcacgg5500-67-47 08:13:00Identifier 89266- 6 Result Time 2018-06-05 08:13:00Unknown Test Item Value Reference Range Comments Unknown (test code = 93571-6) 46.9 Unknown Unknown F Ordering Physician UnknownLaboratory Dnuaion0206-39-70 08:13:00Identifier 33195- 6 Result Time 2018-06-05 08:13:00Unknown Test Item Value Reference Range Comments Unknown (test code = NullTestCode) 56.7 Unknown Unknown F Ordering Physician UnknownLaboratory Wmjucfg0452-39-05 08:13:00Identifier 95717- 6 Result Time 2018-06-05 08:13:00Unknown Test Item Value Reference Range Comments Unknown (test code = 2160-0) 1.43 mg/dL Unknown 0.67-1.17 F Ordering Physician UnknownLaboratory Ewdcecs6175-82-47 08:13:00Identifier 29307- 6 Result Time 2018-06-05 08:13:00Unknown Test Item Value Reference Range Comments Unknown (test code = 2075-0) 104 mmol/L Unknown 101-111 F Ordering Physician UnknownLaboratory Gdervqh2453-35-67 08:13:00Identifier 54448- 6 Result Time 2018-06-05 08:13:00Unknown Test Item Value Reference Range Comments Unknown (test code = 2028-9) 24 mmol/L Unknown 22-32 F Ordering Physician UnknownLaboratory Rayxhro5508-41-36 08:13:00Identifier 23546- 6 Result Time 2018-06-05 08:13:00Unknown Test Item Value Reference Range Comments Unknown (test code = 01514-1) 9.0 mg/dL Unknown 8.6-10.3 F Ordering Physician UnknownLaboratory Ymubqrr2032-95-61 08:13:00Identifier 69858- 6 Result Time 2018-06-05 08:13:00Unknown Test Item Value Reference Range Comments Unknown (test code = 3094-0) 24 mg/dL Unknown 6-24 F Ordering Physician UnknownLaboratory Zgfimua1715-26-39 08:13:00Identifier 24028- 6 Result Time 2018-06-05 08:13:00Unknown Test Item Value Reference Range Comments Unknown (test code = 3097-3) 16.8 Unknown 8-20 F Ordering Physician UnknownLaboratory Uldjzuw1354-91-25 08:13:00Identifier 50146- 6 Result Time 2018-06-05 08:13:00Unknown Test Item Value Reference Range Comments Unknown (test code = 54041-3) 8 mmol/L Unknown 2-11 F Ordering Physician UnknownLaboratory Lvvmmhp8122-74-54 08:13:00Identifier 44182- 6 Result Time 2018-06-05 08:13:00Unknown Test Item Value Reference Range Comments Unknown (test code = 10870-9) 27.4 10^3/uL Unknown 3.5-10.8 F Ordering Physician UnknownLaboratory Fpvuqum4618-66-54 08:13:00Identifier 87412- 6 Result Time 2018-06-05 08:13:00Unknown Test Item Value Reference Range Comments Unknown (test code = 788-0) 24 % Unknown 10.5-15 F Ordering Physician UnknownLaboratory Rhvymhh0192-82-23 08:13:00Identifier 05782- 6 Result Time 2018-06-05 08:13:00Unknown Test Item Value Reference Range Comments Unknown (test code = 789-8) 5.19 10^6 /uL Unknown 4.18-5.48 F Ordering Physician UnknownLaboratory Sgypzpi6962-33-82 08:13:00Identifier 07832- 6 Result Time 2018-06-05 08:13:00Unknown Test Item Value Reference Range Comments Unknown (test code = 777-3) 330 10^3/uL Unknown 150-450 F Ordering Physician UnknownLaboratory Rogknqw4454-54-48 08:13:00Identifier 56124- 6 Result Time 2018-06-05 08:13:00Unknown Test Item Value Reference Range Comments Unknown (test code = 42862-2) 0 Unknown Unknown F Ordering Physician UnknownLaboratory Cyesycc4611-20-25 08:13:00Identifier 27059- 6 Result Time 2018-06-05 08:13:00Unknown Test Item Value Reference Range Comments Unknown (test code = 771-6) 0 10^3/ul Unknown Unknown F Ordering Physician UnknownLaboratory Lzyqcrj1554-13-03 08:13:00Identifier 49597- 6 Result Time 2018-06-05 08:13:00Unknown Test Item Value Reference Range Comments Unknown (test code = 770-8) 84.7 % Unknown Unknown F Ordering Physician UnknownLaboratory Xgtzumf1864-97-85 08:13:00Identifier 40639- 6 Result Time 2018-06-05 08:13:00Unknown Test Item Value Reference Range Comments Unknown (test code = 5905-5) 8.6 % Unknown Unknown F Ordering Physician UnknownLaboratory Dzyvuvc2991-09-22 08:13:00Identifier 27306- 6 Result Time 2018-06-05 08:13:00Unknown Test Item Value Reference Range Comments Unknown (test code = 51875-8) 8.6 fL Unknown 7.4-10.4 F Ordering Physician UnknownLaboratory Nfbfgsi5128-37-63 08:13:00Identifier 14670- 6 Result Time 2018-06-05 08:13:00Unknown Test Item Value Reference Range Comments Unknown (test code = 787-2) 78 fL Unknown 80-94 F Ordering Physician UnknownLaboratory Sluuaqs2006-42-83 08:13:00Identifier 28265- 6 Result Time 2018-06-05 08:13:00Unknown Test Item Value Reference Range Comments Unknown (test code = 786-4) 31 g/dL Unknown 31-36 F Ordering Physician UnknownLaboratory Zyazkfg3982-59-06 08:13:00Identifier 55935- 6 Result Time 2018-06-05 08:13:00Unknown Test Item Value Reference Range Comments Unknown (test code = 785-6) 24 pg Unknown 27-31 F Ordering Physician UnknownLaboratory Twfnwes8060-25-52 08:13:00Identifier 11177- 6 Result Time 2018-06-05 08:13:00Unknown Test Item Value Reference Range Comments Unknown (test code = 736-9) 5.4 % Unknown Unknown F Ordering Physician UnknownLaboratory Xmlaybo2695-08-12 08:13:00Identifier 08534- 6 Result Time 2018-06-05 08:13:00Unknown Test Item Value Reference Range Comments Unknown (test code = 718-7) 12.3 g/dL Unknown 14.0-18.0 F Ordering Physician UnknownLaboratory Ydmkkgw7985-46-84 08:13:00Identifier 98330- 6 Result Time 2018-06-05 08:13:00Unknown Test Item Value Reference Range Comments Unknown (test code = 4544-3) 40 % Unknown 36-46 F Ordering Physician UnknownLaboratory Kpgkqdz2908-32-31 08:13:00Identifier 10527- 6 Result Time 2018-06-05 08:13:00Unknown Test Item Value Reference Range Comments Unknown (test code = 713-8) 0.8 % Unknown Unknown F Ordering Physician UnknownLaboratory Jnnykif1031-70-78 08:13:00Identifier 65797- 6 Result Time 2018-06-05 08:13:00Unknown Test Item Value Reference Range Comments Unknown (test code = 706-2) 0.5 % Unknown Unknown F Ordering Physician UnknownLaboratory Xubdlxu6589-74-50 08:13:00Identifier 40140- 6 Result Time 2018-06-05 08:13:00Unknown Test Item Value Reference Range Comments Unknown (test code = QIN4370) 23.2 10^3/ul Unknown 1.5-7.7 F Ordering Physician UnknownLaboratory Esvixfa0747-87-58 08:13:00Identifier 31255- 6 Result Time 2018-06-05 08:13:00Unknown Test Item Value Reference Range Comments Unknown (test code = 742-7) 2.4 10^3/ul Unknown 0-0.8 F Ordering Physician UnknownLaboratory Oshtxbi8635-61-38 08:13:00Identifier 06344- 6 Result Time 2018-06-05 08:13:00Unknown Test Item Value Reference Range Comments Unknown (test code = 731-0) 1.5 10^3/ul Unknown 1.0-4.8 F Ordering Physician UnknownLaboratory Gwzknbd4361-34-95 08:13:00Identifier 41777- 6 Result Time 2018-06-05 08:13:00Unknown Test Item Value Reference Range Comments Unknown (test code = 711-2) 0.2 10^3/ul Unknown 0-0.6 F Ordering Physician UnknownLaboratory Cvrumvo4145-90-51 08:13:00Identifier 43137- 6 Result Time 2018-06-05 08:13:00Unknown Test Item Value Reference Range Comments Unknown (test code = 704-7) 0.1 10^3/ul Unknown 0-0.2 F Ordering Physician UnknownLaboratory Wriahgo8091-92-09 06:46:00Identifier 01998- 6 Result Time 2018-06-04 06:46:00Unknown Test Item Value Reference Range Comments Unknown (test code = 09274-8) 0.05 ng/mL Unknown Unknown F Ordering Physician UnknownLaboratory Pqeragi2570-11-14 06:46:00Identifier 57834- 6 Result Time 2018-06-04 06:46:00Unknown Test Item Value Reference Range Comments Unknown (test code = 2777-1) 2.8 mg/dL Unknown 2.5-5.0 F Ordering Physician UnknownLaboratory Mcfbtcp5574-45-45 06:46:00Identifier 72232- 6 Result Time 2018-06-04 06:46:00Unknown Test Item Value Reference Range Comments Unknown (test code = 67808-4) 2.5 mg/dL Unknown 1.9-2.7 F Ordering Physician UnknownLaboratory Osiwgkv8396-13-38 10:48:00Identifier 94698- 6 Result Time 2018-06-03 10:48:00Unknown Test Item Value Reference Range Comments Unknown (test code = NullTestCode) 6.0 Unknown 5-9 F Ordering Physician UnknownLaboratory Uvsyoif5132-14-56 10:48:00Identifier 37559- 6 Result Time 2018-06-03 10:48:00Unknown Test Item Value Reference Range Comments Unknown (test code = 09183-6) 1.013 Unknown 1.010-1.030 F Ordering Physician UnknownLaboratory Qkoalzy8933-13-62 10:15:00Identifier 95342- 6 Result Time 2018-06-03 10:15:00Unknown Test Item Value Reference Range Comments Unknown (test code = 3016-3) 3.38 mcIU/mL Unknown 0.34-5.60 F Ordering Physician UnknownLaboratory Dwbugqj3045-76-04 10:15:00Identifier 27513- 6 Result Time 2018-06-03 10:15:00Unknown Test Item Value Reference Range Comments Unknown (test code = 77999-4) 1.14 Unknown 0.77-1.02 F Ordering Physician UnknownLaboratory Gootemg1296-41-33 10:15:00Identifier 92062- 6 Result Time 2018-06-03 10:15:00Unknown Test Item Value Reference Range Comments Unknown (test code = 56191-1) 365 pg/mL Unknown Unknown F Ordering Physician UnknownLaboratory Ajhfpok7246-73-62 10:15:00Identifier 28806- 6 Result Time 2018-06-03 10:15:00Unknown Test Item Value Reference Range Comments Unknown (test code = 2885-2) 8.9 g/dL Unknown 6.4-8.9 F Ordering Physician UnknownLaboratory Nrvxivt5103-32-60 10:15:00Identifier 08609- 6 Result Time 2018-06-03 10:15:00Unknown Test Item Value Reference Range Comments Unknown (test code = 1975-2) 0.60 mg/dL Unknown 0.2-1.0 F Ordering Physician UnknownLaboratory Hvayrsw9638-50-75 10:15:00Identifier 08953- 6 Result Time 2018-06-03 10:15:00Unknown Test Item Value Reference Range Comments Unknown (test code = NullTestCode) 4.9 g/dL Unknown 2-4 F Ordering Physician UnknownLaboratory Gxiznbj0037-10-04 10:15:00Identifier 55962- 6 Result Time 2018-06-03 10:15:00Unknown Test Item Value Reference Range Comments Unknown (test code = 1988-5) 11.17 mg/L Unknown 0-8.00 F Ordering Physician UnknownLaboratory Zbwhbhw3176-70-69 10:15:00Identifier 52232- 6 Result Time 2018-06-03 10:15:00Unknown Test Item Value Reference Range Comments Unknown (test code = 1920-8) 25 U/L Unknown 13-39 F Ordering Physician UnknownLaboratory Qqdtosr1441-14-75 10:15:00Identifier 20990- 6 Result Time 2018-06-03 10:15:00Unknown Test Item Value Reference Range Comments Unknown (test code = 6768-6) 153 U/L Unknown 34-104 F Ordering Physician UnknownLaboratory Jeqtqjp2031-91-65 10:15:00Identifier 28705- 6 Result Time 2018-06-03 10:15:00Unknown Test Item Value Reference Range Comments Unknown (test code = 1759-0) 0.8 Unknown 1-3 F Ordering Physician UnknownLaboratory Zojevtz1126-64-67 10:15:00Identifier 55856- 6 Result Time 2018-06-03 10:15:00Unknown Test Item Value Reference Range Comments Unknown (test code = 19276-9) 4.0 g/dL Unknown 3.2-5.2 F Ordering Physician UnknownLaboratory Imgpoha0246-58-96 10:15:00Identifier 25880- 6 Result Time 2018-06-03 10:15:00Unknown Test Item Value Reference Range Comments Unknown (test code = 1742-6) 13 U/L Unknown 7-52 F Ordering Physician UnknownLaboratory Kbykyse1422-58-05 10:15:00Identifier 70016- 6 Result Time 2018-06-03 10:15:00Unknown Test Item Value Reference Range Comments Unknown (test code = 2524-7) 0.9 mmol/L Unknown 0.5-2.0 F Ordering Physician Unknown
--- OUTSIDE RECORDS SUMMARY | 2019-06-13 09:57 | XMS REPORT ---
:1930 Author Organization [facility] Care Team Providers Name Role Phone [...] Result Comments Laboratory Studies 2018-06-05 08:13:00 Identifier [id number] Result Time Unknown 2018-06-05 08:13:00 Test Item Value Reference Range Comments Unknown (test code = 2951-2) 136 mmol/L Unknown 135-145 F Ordering Physician UnknownLaboratory Sbcetvl9758-80-84 08:13:00Identifier 92731- 6 Result Time 2018-06-05 08:13:00Unknown Test Item Value Reference Range Comments Unknown (test code = 2823-3) 4.0 mmol/L Unknown 3.5-5.0 F Ordering Physician UnknownLaboratory Brtduvo7115-15-76 08:13:00Identifier 01698- 6 Result Time 2018-06-05 08:13:00Unknown Test Item Value Reference Range Comments Unknown (test code = 2345-7) 87 mg/dL Unknown 70-100 F Ordering Physician UnknownLaboratory Iqpeesn5738-80-97 08:13:00Identifier 39537- 6 Result Time 2018-06-05 08:13:00Unknown Test Item Value Reference Range Comments Unknown (test code = 85025-9) 46.9 Unknown Unknown F Ordering Physician UnknownLaboratory Hfaoojk4457-93-34 08:13:00Identifier 69802- 6 Result Time 2018-06-05 08:13:00Unknown Test Item Value Reference Range Comments Unknown (test code = NullTestCode) 56.7 Unknown Unknown F Ordering Physician UnknownLaboratory Ygzhugr2403-39-53 08:13:00Identifier 02893- 6 Result Time 2018-06-05 08:13:00Unknown Test Item Value Reference Range Comments Unknown (test code = 2160-0) 1.43 mg/dL Unknown 0.67-1.17 F Ordering Physician UnknownLaboratory Yygpgiv6393-30-43 08:13:00Identifier 69742- 6 Result Time 2018-06-05 08:13:00Unknown Test Item Value Reference Range Comments Unknown (test code = 2075-0) 104 mmol/L Unknown 101-111 F Ordering Physician UnknownLaboratory Oajcjeu0760-67-44 08:13:00Identifier 59518- 6 Result Time 2018-06-05 08:13:00Unknown Test Item Value Reference Range Comments Unknown (test code = 2028-9) 24 mmol/L Unknown 22-32 F Ordering Physician UnknownLaboratory Fidvolu0191-93-40 08:13:00Identifier 76634- 6 Result Time 2018-06-05 08:13:00Unknown Test Item Value Reference Range Comments Unknown (test code = 08034-1) 9.0 mg/dL Unknown 8.6-10.3 F Ordering Physician UnknownLaboratory Prvdubc1695-86-47 08:13:00Identifier 61911- 6 Result Time 2018-06-05 08:13:00Unknown Test Item Value Reference Range Comments Unknown (test code = 3094-0) 24 mg/dL Unknown 6-24 F Ordering Physician UnknownLaboratory Rrtisti1248-75-02 08:13:00Identifier 19445- 6 Result Time 2018-06-05 08:13:00Unknown Test Item Value Reference Range Comments Unknown (test code = 3097-3) 16.8 Unknown 8-20 F Ordering Physician UnknownLaboratory Dnekazn9785-68-42 08:13:00Identifier 85854- 6 Result Time 2018-06-05 08:13:00Unknown Test Item Value Reference Range Comments Unknown (test code = 33291-7) 8 mmol/L Unknown 2-11 F Ordering Physician UnknownLaboratory Yypwijc1403-77-77 08:13:00Identifier 92521- 6 Result Time 2018-06-05 08:13:00Unknown Test Item Value Reference Range Comments Unknown (test code = 50058-5) 27.4 10^3/uL Unknown 3.5-10.8 F Ordering Physician UnknownLaboratory Atykpij9491-70-49 08:13:00Identifier 03217- 6 Result Time 2018-06-05 08:13:00Unknown Test Item Value Reference Range Comments Unknown (test code = 788-0) 24 % Unknown 10.5-15 F Ordering Physician UnknownLaboratory Gpzldbj4502-02-03 08:13:00Identifier 24665- 6 Result Time 2018-06-05 08:13:00Unknown Test Item Value Reference Range Comments Unknown (test code = 789-8) 5.19 10^6 /uL Unknown 4.18-5.48 F Ordering Physician UnknownLaboratory Hmliojd4747-56-17 08:13:00Identifier 43706- 6 Result Time 2018-06-05 08:13:00Unknown Test Item Value Reference Range Comments Unknown (test code = 777-3) 330 10^3/uL Unknown 150-450 F Ordering Physician UnknownLaboratory Ezrnrhe7368-00-33 08:13:00Identifier 70973- 6 Result Time 2018-06-05 08:13:00Unknown Test Item Value Reference Range Comments Unknown (test code = 08374-5) 0 Unknown Unknown F Ordering Physician UnknownLaboratory Ztlklhf5540-78-55 08:13:00Identifier 79446- 6 Result Time 2018-06-05 08:13:00Unknown Test Item Value Reference Range Comments Unknown (test code = 771-6) 0 10^3/ul Unknown Unknown F Ordering Physician UnknownLaboratory Qjfyypw8016-79-99 08:13:00Identifier 01461- 6 Result Time 2018-06-05 08:13:00Unknown Test Item Value Reference Range Comments Unknown (test code = 770-8) 84.7 % Unknown Unknown F Ordering Physician UnknownLaboratory Qfgalqm3155-95-65 08:13:00Identifier 53005- 6 Result Time 2018-06-05 08:13:00Unknown Test Item Value Reference Range Comments Unknown (test code = 5905-5) 8.6 % Unknown Unknown F Ordering Physician UnknownLaboratory Gtrsqdn4286-07-75 08:13:00Identifier 43283- 6 Result Time 2018-06-05 08:13:00Unknown Test Item Value Reference Range Comments Unknown (test code = 37646-7) 8.6 fL Unknown 7.4-10.4 F Ordering Physician UnknownLaboratory Kfusppu6090-10-05 08:13:00Identifier 05901- 6 Result Time 2018-06-05 08:13:00Unknown Test Item Value Reference Range Comments Unknown (test code = 787-2) 78 fL Unknown 80-94 F Ordering Physician UnknownLaboratory Qyelgks8187-77-84 08:13:00Identifier 05557- 6 Result Time 2018-06-05 08:13:00Unknown Test Item Value Reference Range Comments Unknown (test code = 786-4) 31 g/dL Unknown 31-36 F Ordering Physician UnknownLaboratory Mtetvxe0519-49-10 08:13:00Identifier 98956- 6 Result Time 2018-06-05 08:13:00Unknown Test Item Value Reference Range Comments Unknown (test code = 785-6) 24 pg Unknown 27-31 F Ordering Physician UnknownLaboratory Efjudlz0449-69-07 08:13:00Identifier 37793- 6 Result Time 2018-06-05 08:13:00Unknown Test Item Value Reference Range Comments Unknown (test code = 736-9) 5.4 % Unknown Unknown F Ordering Physician UnknownLaboratory Yaokorl1222-24-15 08:13:00Identifier 06074- 6 Result Time 2018-06-05 08:13:00Unknown Test Item Value Reference Range Comments Unknown (test code = 718-7) 12.3 g/dL Unknown 14.0-18.0 F Ordering Physician UnknownLaboratory Jtvamol4498-10-51 08:13:00Identifier 98485- 6 Result Time 2018-06-05 08:13:00Unknown Test Item Value Reference Range Comments Unknown (test code = 4544-3) 40 % Unknown 36-46 F Ordering Physician UnknownLaboratory Cbbtxrz4457-28-01 08:13:00Identifier 53764- 6 Result Time 2018-06-05 08:13:00Unknown Test Item Value Reference Range Comments Unknown (test code = 713-8) 0.8 % Unknown Unknown F Ordering Physician UnknownLaboratory Qwjrelh3835-05-48 08:13:00Identifier 46532- 6 Result Time 2018-06-05 08:13:00Unknown Test Item Value Reference Range Comments Unknown (test code = 706-2) 0.5 % Unknown Unknown F Ordering Physician UnknownLaboratory Fgzxlnp2519-84-90 08:13:00Identifier 52946- 6 Result Time 2018-06-05 08:13:00Unknown Test Item Value Reference Range Comments Unknown (test code = BYV2742) 23.2 10^3/ul Unknown 1.5-7.7 F Ordering Physician UnknownLaboratory Plvhosm5512-20-84 08:13:00Identifier 61212- 6 Result Time 2018-06-05 08:13:00Unknown Test Item Value Reference Range Comments Unknown (test code = 742-7) 2.4 10^3/ul Unknown 0-0.8 F Ordering Physician UnknownLaboratory Xxogmoh8750-53-58 08:13:00Identifier 85497- 6 Result Time 2018-06-05 08:13:00Unknown Test Item Value Reference Range Comments Unknown (test code = 731-0) 1.5 10^3/ul Unknown 1.0-4.8 F Ordering Physician UnknownLaboratory Nsxyzar0163-72-37 08:13:00Identifier 03697- 6 Result Time 2018-06-05 08:13:00Unknown Test Item Value Reference Range Comments Unknown (test code = 711-2) 0.2 10^3/ul Unknown 0-0.6 F Ordering Physician UnknownLaboratory Ccctomy9332-83-83 08:13:00Identifier 84581- 6 Result Time 2018-06-05 08:13:00Unknown Test Item Value Reference Range Comments Unknown (test code = 704-7) 0.1 10^3/ul Unknown 0-0.2 F Ordering Physician UnknownLaboratory Mnvgxif3148-10-71 06:46:00Identifier 48657- 6 Result Time 2018-06-04 06:46:00Unknown Test Item Value Reference Range Comments Unknown (test code = 94079-4) 0.05 ng/mL Unknown Unknown F Ordering Physician UnknownLaboratory Fqlyaxf6571-64-10 06:46:00Identifier 56529- 6 Result Time 2018-06-04 06:46:00Unknown Test Item Value Reference Range Comments Unknown (test code = 2777-1) 2.8 mg/dL Unknown 2.5-5.0 F Ordering Physician UnknownLaboratory Nwnjepu3197-66-78 06:46:00Identifier 13160- 6 Result Time 2018-06-04 06:46:00Unknown Test Item Value Reference Range Comments Unknown (test code = 57435-1) 2.5 mg/dL Unknown 1.9-2.7 F Ordering Physician UnknownLaboratory Acjrrie5792-71-47 10:48:00Identifier 67974- 6 Result Time 2018-06-03 10:48:00Unknown Test Item Value Reference Range Comments Unknown (test code = NullTestCode) 6.0 Unknown 5-9 F Ordering Physician UnknownLaboratory Gzasowg6059-96-56 10:48:00Identifier 44935- 6 Result Time 2018-06-03 10:48:00Unknown Test Item Value Reference Range Comments Unknown (test code = 91271-9) 1.013 Unknown 1.010-1.030 F Ordering Physician UnknownLaboratory Mtlfoxa5316-82-75 10:15:00Identifier 43779- 6 Result Time 2018-06-03 10:15:00Unknown Test Item Value Reference Range Comments Unknown (test code = 3016-3) 3.38 mcIU/mL Unknown 0.34-5.60 F Ordering Physician UnknownLaboratory Uwpydmt0160-24-81 10:15:00Identifier 90640- 6 Result Time 2018-06-03 10:15:00Unknown Test Item Value Reference Range Comments Unknown (test code = 50705-6) 1.14 Unknown 0.77-1.02 F Ordering Physician UnknownLaboratory Tjbcaxe4230-92-62 10:15:00Identifier 77554- 6 Result Time 2018-06-03 10:15:00Unknown Test Item Value Reference Range Comments Unknown (test code = 90731-7) 365 pg/mL Unknown Unknown F Ordering Physician UnknownLaboratory Ligutaj8033-28-72 10:15:00Identifier 03145- 6 Result Time 2018-06-03 10:15:00Unknown Test Item Value Reference Range Comments Unknown (test code = 2885-2) 8.9 g/dL Unknown 6.4-8.9 F Ordering Physician UnknownLaboratory Yzizdzc9915-84-85 10:15:00Identifier 33084- 6 Result Time 2018-06-03 10:15:00Unknown Test Item Value Reference Range Comments Unknown (test code = 1975-2) 0.60 mg/dL Unknown 0.2-1.0 F Ordering Physician UnknownLaboratory Eyezrhd7832-83-60 10:15:00Identifier 46754- 6 Result Time 2018-06-03 10:15:00Unknown Test Item Value Reference Range Comments Unknown (test code = NullTestCode) 4.9 g/dL Unknown 2-4 F Ordering Physician UnknownLaboratory Kawxdvc2529-10-39 10:15:00Identifier 56870- 6 Result Time 2018-06-03 10:15:00Unknown Test Item Value Reference Range Comments Unknown (test code = 1988-5) 11.17 mg/L Unknown 0-8.00 F Ordering Physician UnknownLaboratory Qdkuhmr9289-90-02 10:15:00Identifier 42552- 6 Result Time 2018-06-03 10:15:00Unknown Test Item Value Reference Range Comments Unknown (test code = 1920-8) 25 U/L Unknown 13-39 F Ordering Physician UnknownLaboratory Hburbrl7790-10-07 10:15:00Identifier 64898- 6 Result Time 2018-06-03 10:15:00Unknown Test Item Value Reference Range Comments Unknown (test code = 6768-6) 153 U/L Unknown 34-104 F Ordering Physician UnknownLaboratory Efeouev5062-41-94 10:15:00Identifier 73189- 6 Result Time 2018-06-03 10:15:00Unknown Test Item Value Reference Range Comments Unknown (test code = 1759-0) 0.8 Unknown 1-3 F Ordering Physician UnknownLaboratory Jbpvgsd6950-65-11 10:15:00Identifier 67740- 6 Result Time 2018-06-03 10:15:00Unknown Test Item Value Reference Range Comments Unknown (test code = 85534-7) 4.0 g/dL Unknown 3.2-5.2 F Ordering Physician UnknownLaboratory Nvzdttj3765-99-07 10:15:00Identifier 81072- 6 Result Time 2018-06-03 10:15:00Unknown Test Item Value Reference Range Comments Unknown (test code = 1742-6) 13 U/L Unknown 7-52 F Ordering Physician UnknownLaboratory Wfyzsqp6598-47-87 10:15:00Identifier 75391- 6 Result Time 2018-06-03 10:15:00Unknown Test Item Value Reference Range Comments Unknown (test code = 2524-7) 0.9 mmol/L Unknown 0.5-2.0 F Ordering Physician Unknown
--- OUTSIDE RECORDS SUMMARY | 2019-06-13 09:57 | XMS REPORT ---
:1930 Author Organization [facility] Care Team Providers Name Role Phone [...] Result Comments Laboratory Studies 2018-06-05 08:13:00 Identifier [id number] Result Time Unknown 2018-06-05 08:13:00 Test Item Value Reference Range Comments Unknown (test code = 2951-2) 136 mmol/L Unknown 135-145 F Ordering Physician UnknownLaboratory Wociuib4596-80-35 08:13:00Identifier 64706- 6 Result Time 2018-06-05 08:13:00Unknown Test Item Value Reference Range Comments Unknown (test code = 2823-3) 4.0 mmol/L Unknown 3.5-5.0 F Ordering Physician UnknownLaboratory Jliphzg1760-08-48 08:13:00Identifier 93430- 6 Result Time 2018-06-05 08:13:00Unknown Test Item Value Reference Range Comments Unknown (test code = 2345-7) 87 mg/dL Unknown 70-100 F Ordering Physician UnknownLaboratory Cxfnfye9226-13-29 08:13:00Identifier 56706- 6 Result Time 2018-06-05 08:13:00Unknown Test Item Value Reference Range Comments Unknown (test code = 68014-2) 46.9 Unknown Unknown F Ordering Physician UnknownLaboratory Qekicgt4404-76-74 08:13:00Identifier 06118- 6 Result Time 2018-06-05 08:13:00Unknown Test Item Value Reference Range Comments Unknown (test code = NullTestCode) 56.7 Unknown Unknown F Ordering Physician UnknownLaboratory Zsxhqws7215-43-77 08:13:00Identifier 54723- 6 Result Time 2018-06-05 08:13:00Unknown Test Item Value Reference Range Comments Unknown (test code = 2160-0) 1.43 mg/dL Unknown 0.67-1.17 F Ordering Physician UnknownLaboratory Weekvuc6928-32-99 08:13:00Identifier 62462- 6 Result Time 2018-06-05 08:13:00Unknown Test Item Value Reference Range Comments Unknown (test code = 2075-0) 104 mmol/L Unknown 101-111 F Ordering Physician UnknownLaboratory Prnfjqh4671-09-69 08:13:00Identifier 08224- 6 Result Time 2018-06-05 08:13:00Unknown Test Item Value Reference Range Comments Unknown (test code = 2028-9) 24 mmol/L Unknown 22-32 F Ordering Physician UnknownLaboratory Yxjtpsn5676-35-15 08:13:00Identifier 22523- 6 Result Time 2018-06-05 08:13:00Unknown Test Item Value Reference Range Comments Unknown (test code = 54155-4) 9.0 mg/dL Unknown 8.6-10.3 F Ordering Physician UnknownLaboratory Vedrxfl9512-03-67 08:13:00Identifier 89364- 6 Result Time 2018-06-05 08:13:00Unknown Test Item Value Reference Range Comments Unknown (test code = 3094-0) 24 mg/dL Unknown 6-24 F Ordering Physician UnknownLaboratory Ywwqogh4672-69-20 08:13:00Identifier 07617- 6 Result Time 2018-06-05 08:13:00Unknown Test Item Value Reference Range Comments Unknown (test code = 3097-3) 16.8 Unknown 8-20 F Ordering Physician UnknownLaboratory Vzvtywn4217-51-35 08:13:00Identifier 06446- 6 Result Time 2018-06-05 08:13:00Unknown Test Item Value Reference Range Comments Unknown (test code = 84594-4) 8 mmol/L Unknown 2-11 F Ordering Physician UnknownLaboratory Oybihpy0942-71-67 08:13:00Identifier 06232- 6 Result Time 2018-06-05 08:13:00Unknown Test Item Value Reference Range Comments Unknown (test code = 16741-8) 27.4 10^3/uL Unknown 3.5-10.8 F Ordering Physician UnknownLaboratory Joqoozr0699-01-79 08:13:00Identifier 85755- 6 Result Time 2018-06-05 08:13:00Unknown Test Item Value Reference Range Comments Unknown (test code = 788-0) 24 % Unknown 10.5-15 F Ordering Physician UnknownLaboratory Fdciiat8992-32-32 08:13:00Identifier 56091- 6 Result Time 2018-06-05 08:13:00Unknown Test Item Value Reference Range Comments Unknown (test code = 789-8) 5.19 10^6 /uL Unknown 4.18-5.48 F Ordering Physician UnknownLaboratory Lublzuw4808-66-43 08:13:00Identifier 70415- 6 Result Time 2018-06-05 08:13:00Unknown Test Item Value Reference Range Comments Unknown (test code = 777-3) 330 10^3/uL Unknown 150-450 F Ordering Physician UnknownLaboratory Tsikjcf5235-17-85 08:13:00Identifier 00170- 6 Result Time 2018-06-05 08:13:00Unknown Test Item Value Reference Range Comments Unknown (test code = 63817-6) 0 Unknown Unknown F Ordering Physician UnknownLaboratory Mdbwncm3134-89-29 08:13:00Identifier 85720- 6 Result Time 2018-06-05 08:13:00Unknown Test Item Value Reference Range Comments Unknown (test code = 771-6) 0 10^3/ul Unknown Unknown F Ordering Physician UnknownLaboratory Xxhutif5389-98-73 08:13:00Identifier 58305- 6 Result Time 2018-06-05 08:13:00Unknown Test Item Value Reference Range Comments Unknown (test code = 770-8) 84.7 % Unknown Unknown F Ordering Physician UnknownLaboratory Ygsovfk0405-40-64 08:13:00Identifier 97165- 6 Result Time 2018-06-05 08:13:00Unknown Test Item Value Reference Range Comments Unknown (test code = 5905-5) 8.6 % Unknown Unknown F Ordering Physician UnknownLaboratory Gcwcpwx3156-73-71 08:13:00Identifier 99580- 6 Result Time 2018-06-05 08:13:00Unknown Test Item Value Reference Range Comments Unknown (test code = 51402-0) 8.6 fL Unknown 7.4-10.4 F Ordering Physician UnknownLaboratory Bkdtutm2914-02-20 08:13:00Identifier 75780- 6 Result Time 2018-06-05 08:13:00Unknown Test Item Value Reference Range Comments Unknown (test code = 787-2) 78 fL Unknown 80-94 F Ordering Physician UnknownLaboratory Dmphnzn9569-52-16 08:13:00Identifier 60872- 6 Result Time 2018-06-05 08:13:00Unknown Test Item Value Reference Range Comments Unknown (test code = 786-4) 31 g/dL Unknown 31-36 F Ordering Physician UnknownLaboratory Hmwrtce8148-37-56 08:13:00Identifier 03771- 6 Result Time 2018-06-05 08:13:00Unknown Test Item Value Reference Range Comments Unknown (test code = 785-6) 24 pg Unknown 27-31 F Ordering Physician UnknownLaboratory Naybpmh6697-23-57 08:13:00Identifier 68646- 6 Result Time 2018-06-05 08:13:00Unknown Test Item Value Reference Range Comments Unknown (test code = 736-9) 5.4 % Unknown Unknown F Ordering Physician UnknownLaboratory Racuswj7477-94-02 08:13:00Identifier 38980- 6 Result Time 2018-06-05 08:13:00Unknown Test Item Value Reference Range Comments Unknown (test code = 718-7) 12.3 g/dL Unknown 14.0-18.0 F Ordering Physician UnknownLaboratory Hvvootq3586-43-99 08:13:00Identifier 91214- 6 Result Time 2018-06-05 08:13:00Unknown Test Item Value Reference Range Comments Unknown (test code = 4544-3) 40 % Unknown 36-46 F Ordering Physician UnknownLaboratory Bmtnqpe4858-19-12 08:13:00Identifier 61353- 6 Result Time 2018-06-05 08:13:00Unknown Test Item Value Reference Range Comments Unknown (test code = 713-8) 0.8 % Unknown Unknown F Ordering Physician UnknownLaboratory Ihqpikh2940-62-98 08:13:00Identifier 84677- 6 Result Time 2018-06-05 08:13:00Unknown Test Item Value Reference Range Comments Unknown (test code = 706-2) 0.5 % Unknown Unknown F Ordering Physician UnknownLaboratory Sajrseq7823-22-46 08:13:00Identifier 94629- 6 Result Time 2018-06-05 08:13:00Unknown Test Item Value Reference Range Comments Unknown (test code = WNX3045) 23.2 10^3/ul Unknown 1.5-7.7 F Ordering Physician UnknownLaboratory Lkvguig2116-03-02 08:13:00Identifier 75766- 6 Result Time 2018-06-05 08:13:00Unknown Test Item Value Reference Range Comments Unknown (test code = 742-7) 2.4 10^3/ul Unknown 0-0.8 F Ordering Physician UnknownLaboratory Xvzjzsb2909-36-87 08:13:00Identifier 73353- 6 Result Time 2018-06-05 08:13:00Unknown Test Item Value Reference Range Comments Unknown (test code = 731-0) 1.5 10^3/ul Unknown 1.0-4.8 F Ordering Physician UnknownLaboratory Txtjwlq2265-60-05 08:13:00Identifier 08231- 6 Result Time 2018-06-05 08:13:00Unknown Test Item Value Reference Range Comments Unknown (test code = 711-2) 0.2 10^3/ul Unknown 0-0.6 F Ordering Physician UnknownLaboratory Zjryuvx4351-36-18 08:13:00Identifier 73740- 6 Result Time 2018-06-05 08:13:00Unknown Test Item Value Reference Range Comments Unknown (test code = 704-7) 0.1 10^3/ul Unknown 0-0.2 F Ordering Physician UnknownLaboratory Zpoembz2028-62-77 06:46:00Identifier 31695- 6 Result Time 2018-06-04 06:46:00Unknown Test Item Value Reference Range Comments Unknown (test code = 81766-7) 0.05 ng/mL Unknown Unknown F Ordering Physician UnknownLaboratory Toflnzi5826-34-87 06:46:00Identifier 38582- 6 Result Time 2018-06-04 06:46:00Unknown Test Item Value Reference Range Comments Unknown (test code = 2777-1) 2.8 mg/dL Unknown 2.5-5.0 F Ordering Physician UnknownLaboratory Gjfnybh1249-70-21 06:46:00Identifier 49189- 6 Result Time 2018-06-04 06:46:00Unknown Test Item Value Reference Range Comments Unknown (test code = 47875-9) 2.5 mg/dL Unknown 1.9-2.7 F Ordering Physician UnknownLaboratory Pqhmzai4544-72-79 10:48:00Identifier 44543- 6 Result Time 2018-06-03 10:48:00Unknown Test Item Value Reference Range Comments Unknown (test code = NullTestCode) 6.0 Unknown 5-9 F Ordering Physician UnknownLaboratory Tbabhmi2895-56-31 10:48:00Identifier 54241- 6 Result Time 2018-06-03 10:48:00Unknown Test Item Value Reference Range Comments Unknown (test code = 66542-5) 1.013 Unknown 1.010-1.030 F Ordering Physician UnknownLaboratory Gszsnzl5871-36-19 10:15:00Identifier 31831- 6 Result Time 2018-06-03 10:15:00Unknown Test Item Value Reference Range Comments Unknown (test code = 3016-3) 3.38 mcIU/mL Unknown 0.34-5.60 F Ordering Physician UnknownLaboratory Ppyftnf0356-08-87 10:15:00Identifier 45541- 6 Result Time 2018-06-03 10:15:00Unknown Test Item Value Reference Range Comments Unknown (test code = 32443-3) 1.14 Unknown 0.77-1.02 F Ordering Physician UnknownLaboratory Rxlqneh7279-75-24 10:15:00Identifier 22876- 6 Result Time 2018-06-03 10:15:00Unknown Test Item Value Reference Range Comments Unknown (test code = 60541-5) 365 pg/mL Unknown Unknown F Ordering Physician UnknownLaboratory Iutsfaw9969-12-29 10:15:00Identifier 89955- 6 Result Time 2018-06-03 10:15:00Unknown Test Item Value Reference Range Comments Unknown (test code = 2885-2) 8.9 g/dL Unknown 6.4-8.9 F Ordering Physician UnknownLaboratory Zuooigq2425-18-33 10:15:00Identifier 30325- 6 Result Time 2018-06-03 10:15:00Unknown Test Item Value Reference Range Comments Unknown (test code = 1975-2) 0.60 mg/dL Unknown 0.2-1.0 F Ordering Physician UnknownLaboratory Zuubrtk2346-96-56 10:15:00Identifier 45285- 6 Result Time 2018-06-03 10:15:00Unknown Test Item Value Reference Range Comments Unknown (test code = NullTestCode) 4.9 g/dL Unknown 2-4 F Ordering Physician UnknownLaboratory Vawsacx3147-34-92 10:15:00Identifier 40892- 6 Result Time 2018-06-03 10:15:00Unknown Test Item Value Reference Range Comments Unknown (test code = 1988-5) 11.17 mg/L Unknown 0-8.00 F Ordering Physician UnknownLaboratory Kouumil7821-49-08 10:15:00Identifier 51537- 6 Result Time 2018-06-03 10:15:00Unknown Test Item Value Reference Range Comments Unknown (test code = 1920-8) 25 U/L Unknown 13-39 F Ordering Physician UnknownLaboratory Jjlngpk4702-75-57 10:15:00Identifier 91616- 6 Result Time 2018-06-03 10:15:00Unknown Test Item Value Reference Range Comments Unknown (test code = 6768-6) 153 U/L Unknown 34-104 F Ordering Physician UnknownLaboratory Lrxfykr7107-94-12 10:15:00Identifier 44343- 6 Result Time 2018-06-03 10:15:00Unknown Test Item Value Reference Range Comments Unknown (test code = 1759-0) 0.8 Unknown 1-3 F Ordering Physician UnknownLaboratory Qzymypc4863-30-89 10:15:00Identifier 49091- 6 Result Time 2018-06-03 10:15:00Unknown Test Item Value Reference Range Comments Unknown (test code = 26577-1) 4.0 g/dL Unknown 3.2-5.2 F Ordering Physician UnknownLaboratory Vfosyzg6246-83-51 10:15:00Identifier 72030- 6 Result Time 2018-06-03 10:15:00Unknown Test Item Value Reference Range Comments Unknown (test code = 1742-6) 13 U/L Unknown 7-52 F Ordering Physician UnknownLaboratory Xyuvkgs2019-95-27 10:15:00Identifier 04615- 6 Result Time 2018-06-03 10:15:00Unknown Test Item Value Reference Range Comments Unknown (test code = 2524-7) 0.9 mmol/L Unknown 0.5-2.0 F Ordering Physician Unknown
--- OUTSIDE RECORDS SUMMARY | 2019-06-13 09:57 | XMS REPORT ---
:1930 Author Organization [facility] Care Team Providers Name Role Phone [...] Result Comments Laboratory Studies 2018-06-05 08:13:00 Identifier [id number] Result Time Unknown 2018-06-05 08:13:00 Test Item Value Reference Range Comments Unknown (test code = 2951-2) 136 mmol/L Unknown 135-145 F Ordering Physician UnknownLaboratory Aotwqlx3634-13-41 08:13:00Identifier [id number]- 6 Result Time 2018-06-05 08:13:00Unknown Test Item Value Reference Range Comments Unknown (test code = 2823-3) 4.0 mmol/L Unknown 3.5-5.0 F Ordering Physician UnknownLaboratory Lbhksgc8172-20-83 08:13:00Identifier 82990- 6 Result Time 2018-06-05 08:13:00Unknown Test Item Value Reference Range Comments Unknown (test code = 2345-7) 87 mg/dL Unknown 70-100 F Ordering Physician UnknownLaboratory Sujoysr0511-18-87 08:13:00Identifier 44709- 6 Result Time 2018-06-05 08:13:00Unknown Test Item Value Reference Range Comments Unknown (test code = 83597-0) 46.9 Unknown Unknown F Ordering Physician UnknownLaboratory Eectsti6869-44-30 08:13:00Identifier 66039- 6 Result Time 2018-06-05 08:13:00Unknown Test Item Value Reference Range Comments Unknown (test code = NullTestCode) 56.7 Unknown Unknown F Ordering Physician UnknownLaboratory Xgpfojt9535-82-30 08:13:00Identifier 84260- 6 Result Time 2018-06-05 08:13:00Unknown Test Item Value Reference Range Comments Unknown (test code = 2160-0) 1.43 mg/dL Unknown 0.67-1.17 F Ordering Physician UnknownLaboratory Sedznzo8604-05-38 08:13:00Identifier 47261- 6 Result Time 2018-06-05 08:13:00Unknown Test Item Value Reference Range Comments Unknown (test code = 2075-0) 104 mmol/L Unknown 101-111 F Ordering Physician UnknownLaboratory Otqmawn6962-97-85 08:13:00Identifier 68298- 6 Result Time 2018-06-05 08:13:00Unknown Test Item Value Reference Range Comments Unknown (test code = 2028-9) 24 mmol/L Unknown 22-32 F Ordering Physician UnknownLaboratory Uyyqfvs9888-44-59 08:13:00Identifier 64378- 6 Result Time 2018-06-05 08:13:00Unknown Test Item Value Reference Range Comments Unknown (test code = 58745-8) 9.0 mg/dL Unknown 8.6-10.3 F Ordering Physician UnknownLaboratory Fkaztex8713-59-14 08:13:00Identifier 41581- 6 Result Time 2018-06-05 08:13:00Unknown Test Item Value Reference Range Comments Unknown (test code = 3094-0) 24 mg/dL Unknown 6-24 F Ordering Physician UnknownLaboratory Vfpphra1084-41-96 08:13:00Identifier 42618- 6 Result Time 2018-06-05 08:13:00Unknown Test Item Value Reference Range Comments Unknown (test code = 3097-3) 16.8 Unknown 8-20 F Ordering Physician UnknownLaboratory Jdapnpu2544-95-20 08:13:00Identifier 08517- 6 Result Time 2018-06-05 08:13:00Unknown Test Item Value Reference Range Comments Unknown (test code = 94635-0) 8 mmol/L Unknown 2-11 F Ordering Physician UnknownLaboratory Ixwxoqg2776-15-93 08:13:00Identifier 07435- 6 Result Time 2018-06-05 08:13:00Unknown Test Item Value Reference Range Comments Unknown (test code = 23436-3) 27.4 10^3/uL Unknown 3.5-10.8 F Ordering Physician UnknownLaboratory Agekpsp6952-65-14 08:13:00Identifier 50262- 6 Result Time 2018-06-05 08:13:00Unknown Test Item Value Reference Range Comments Unknown (test code = 788-0) 24 % Unknown 10.5-15 F Ordering Physician UnknownLaboratory Svsmzef0799-58-21 08:13:00Identifier 27507- 6 Result Time 2018-06-05 08:13:00Unknown Test Item Value Reference Range Comments Unknown (test code = 789-8) 5.19 10^6 /uL Unknown 4.18-5.48 F Ordering Physician UnknownLaboratory Ytgqkqs1124-30-03 08:13:00Identifier 09696- 6 Result Time 2018-06-05 08:13:00Unknown Test Item Value Reference Range Comments Unknown (test code = 777-3) 330 10^3/uL Unknown 150-450 F Ordering Physician UnknownLaboratory Avxyfrx6307-42-50 08:13:00Identifier 48202- 6 Result Time 2018-06-05 08:13:00Unknown Test Item Value Reference Range Comments Unknown (test code = 14607-4) 0 Unknown Unknown F Ordering Physician UnknownLaboratory Luejwjt6836-41-16 08:13:00Identifier 31997- 6 Result Time 2018-06-05 08:13:00Unknown Test Item Value Reference Range Comments Unknown (test code = 771-6) 0 10^3/ul Unknown Unknown F Ordering Physician UnknownLaboratory Knxrozq4488-25-34 08:13:00Identifier 42945- 6 Result Time 2018-06-05 08:13:00Unknown Test Item Value Reference Range Comments Unknown (test code = 770-8) 84.7 % Unknown Unknown F Ordering Physician UnknownLaboratory Ldlwvxj7231-24-11 08:13:00Identifier 55119- 6 Result Time 2018-06-05 08:13:00Unknown Test Item Value Reference Range Comments Unknown (test code = 5905-5) 8.6 % Unknown Unknown F Ordering Physician UnknownLaboratory Vpscimd6640-50-10 08:13:00Identifier 01098- 6 Result Time 2018-06-05 08:13:00Unknown Test Item Value Reference Range Comments Unknown (test code = 17555-3) 8.6 fL Unknown 7.4-10.4 F Ordering Physician UnknownLaboratory Iiqpjbd8095-31-01 08:13:00Identifier 25607- 6 Result Time 2018-06-05 08:13:00Unknown Test Item Value Reference Range Comments Unknown (test code = 787-2) 78 fL Unknown 80-94 F Ordering Physician UnknownLaboratory Xmfwttt0378-11-93 08:13:00Identifier 47638- 6 Result Time 2018-06-05 08:13:00Unknown Test Item Value Reference Range Comments Unknown (test code = 786-4) 31 g/dL Unknown 31-36 F Ordering Physician UnknownLaboratory Qqykepz9430-53-41 08:13:00Identifier 22620- 6 Result Time 2018-06-05 08:13:00Unknown Test Item Value Reference Range Comments Unknown (test code = 785-6) 24 pg Unknown 27-31 F Ordering Physician UnknownLaboratory Ojvqiid5689-40-08 08:13:00Identifier 27922- 6 Result Time 2018-06-05 08:13:00Unknown Test Item Value Reference Range Comments Unknown (test code = 736-9) 5.4 % Unknown Unknown F Ordering Physician UnknownLaboratory Xolblvo4944-22-31 08:13:00Identifier 73819- 6 Result Time 2018-06-05 08:13:00Unknown Test Item Value Reference Range Comments Unknown (test code = 718-7) 12.3 g/dL Unknown 14.0-18.0 F Ordering Physician UnknownLaboratory Jmhmglm9182-80-00 08:13:00Identifier 41896- 6 Result Time 2018-06-05 08:13:00Unknown Test Item Value Reference Range Comments Unknown (test code = 4544-3) 40 % Unknown 36-46 F Ordering Physician UnknownLaboratory Mptkfre5368-59-44 08:13:00Identifier 54733- 6 Result Time 2018-06-05 08:13:00Unknown Test Item Value Reference Range Comments Unknown (test code = 713-8) 0.8 % Unknown Unknown F Ordering Physician UnknownLaboratory Desgiqh4462-51-55 08:13:00Identifier 65142- 6 Result Time 2018-06-05 08:13:00Unknown Test Item Value Reference Range Comments Unknown (test code = 706-2) 0.5 % Unknown Unknown F Ordering Physician UnknownLaboratory Wlwdefk9600-03-88 08:13:00Identifier 14689- 6 Result Time 2018-06-05 08:13:00Unknown Test Item Value Reference Range Comments Unknown (test code = GVN3386) 23.2 10^3/ul Unknown 1.5-7.7 F Ordering Physician UnknownLaboratory Bzroeqc7834-80-68 08:13:00Identifier 75101- 6 Result Time 2018-06-05 08:13:00Unknown Test Item Value Reference Range Comments Unknown (test code = 742-7) 2.4 10^3/ul Unknown 0-0.8 F Ordering Physician UnknownLaboratory Bucufie7136-07-46 08:13:00Identifier 01268- 6 Result Time 2018-06-05 08:13:00Unknown Test Item Value Reference Range Comments Unknown (test code = 731-0) 1.5 10^3/ul Unknown 1.0-4.8 F Ordering Physician UnknownLaboratory Elhuqaf3437-12-27 08:13:00Identifier 39846- 6 Result Time 2018-06-05 08:13:00Unknown Test Item Value Reference Range Comments Unknown (test code = 711-2) 0.2 10^3/ul Unknown 0-0.6 F Ordering Physician UnknownLaboratory Erzammw9743-01-91 08:13:00Identifier 88727- 6 Result Time 2018-06-05 08:13:00Unknown Test Item Value Reference Range Comments Unknown (test code = 704-7) 0.1 10^3/ul Unknown 0-0.2 F Ordering Physician UnknownLaboratory Klfsadz4413-36-46 06:46:00Identifier 70071- 6 Result Time 2018-06-04 06:46:00Unknown Test Item Value Reference Range Comments Unknown (test code = 04628-3) 0.05 ng/mL Unknown Unknown F Ordering Physician UnknownLaboratory Lljhqgo8265-46-04 06:46:00Identifier 22429- 6 Result Time 2018-06-04 06:46:00Unknown Test Item Value Reference Range Comments Unknown (test code = 2777-1) 2.8 mg/dL Unknown 2.5-5.0 F Ordering Physician UnknownLaboratory Gnumfzq1032-03-47 06:46:00Identifier 15395- 6 Result Time 2018-06-04 06:46:00Unknown Test Item Value Reference Range Comments Unknown (test code = 76602-8) 2.5 mg/dL Unknown 1.9-2.7 F Ordering Physician UnknownLaboratory Jdxyyvr6230-39-05 10:48:00Identifier 63262- 6 Result Time 2018-06-03 10:48:00Unknown Test Item Value Reference Range Comments Unknown (test code = NullTestCode) 6.0 Unknown 5-9 F Ordering Physician UnknownLaboratory Kfzlivg8545-46-70 10:48:00Identifier 64134- 6 Result Time 2018-06-03 10:48:00Unknown Test Item Value Reference Range Comments Unknown (test code = 77012-9) 1.013 Unknown 1.010-1.030 F Ordering Physician UnknownLaboratory Brqiece3324-12-56 10:15:00Identifier 04251- 6 Result Time 2018-06-03 10:15:00Unknown Test Item Value Reference Range Comments Unknown (test code = 3016-3) 3.38 mcIU/mL Unknown 0.34-5.60 F Ordering Physician UnknownLaboratory Qviuddd1488-57-45 10:15:00Identifier 78697- 6 Result Time 2018-06-03 10:15:00Unknown Test Item Value Reference Range Comments Unknown (test code = 94674-0) 1.14 Unknown 0.77-1.02 F Ordering Physician UnknownLaboratory Deswdba1501-56-68 10:15:00Identifier 91199- 6 Result Time 2018-06-03 10:15:00Unknown Test Item Value Reference Range Comments Unknown (test code = 73519-2) 365 pg/mL Unknown Unknown F Ordering Physician UnknownLaboratory Sjcklyt1301-10-06 10:15:00Identifier 37689- 6 Result Time 2018-06-03 10:15:00Unknown Test Item Value Reference Range Comments Unknown (test code = 2885-2) 8.9 g/dL Unknown 6.4-8.9 F Ordering Physician UnknownLaboratory Epefyws8381-09-74 10:15:00Identifier 87940- 6 Result Time 2018-06-03 10:15:00Unknown Test Item Value Reference Range Comments Unknown (test code = 1975-2) 0.60 mg/dL Unknown 0.2-1.0 F Ordering Physician UnknownLaboratory Letfeab5192-01-32 10:15:00Identifier 57848- 6 Result Time 2018-06-03 10:15:00Unknown Test Item Value Reference Range Comments Unknown (test code = NullTestCode) 4.9 g/dL Unknown 2-4 F Ordering Physician UnknownLaboratory Xzszwgo2905-87-42 10:15:00Identifier 03252- 6 Result Time 2018-06-03 10:15:00Unknown Test Item Value Reference Range Comments Unknown (test code = 1988-5) 11.17 mg/L Unknown 0-8.00 F Ordering Physician UnknownLaboratory Azfuyur3881-90-64 10:15:00Identifier 52246- 6 Result Time 2018-06-03 10:15:00Unknown Test Item Value Reference Range Comments Unknown (test code = 1920-8) 25 U/L Unknown 13-39 F Ordering Physician UnknownLaboratory Pctogpt9624-57-26 10:15:00Identifier 53756- 6 Result Time 2018-06-03 10:15:00Unknown Test Item Value Reference Range Comments Unknown (test code = 6768-6) 153 U/L Unknown 34-104 F Ordering Physician UnknownLaboratory Vqxlqhw3015-75-00 10:15:00Identifier 85093- 6 Result Time 2018-06-03 10:15:00Unknown Test Item Value Reference Range Comments Unknown (test code = 1759-0) 0.8 Unknown 1-3 F Ordering Physician UnknownLaboratory Sxedhcn1907-56-81 10:15:00Identifier 98487- 6 Result Time 2018-06-03 10:15:00Unknown Test Item Value Reference Range Comments Unknown (test code = 30002-0) 4.0 g/dL Unknown 3.2-5.2 F Ordering Physician UnknownLaboratory Emquoas2456-85-71 10:15:00Identifier 05951- 6 Result Time 2018-06-03 10:15:00Unknown Test Item Value Reference Range Comments Unknown (test code = 1742-6) 13 U/L Unknown 7-52 F Ordering Physician UnknownLaboratory Nttxzan9077-89-24 10:15:00Identifier 64293- 6 Result Time 2018-06-03 10:15:00Unknown Test Item Value Reference Range Comments Unknown (test code = 2524-7) 0.9 mmol/L Unknown 0.5-2.0 F Ordering Physician Unknown
--- OUTSIDE RECORDS SUMMARY | 2019-06-13 09:57 | XMS REPORT ---
:1930 Author Organization [facility] Care Team Providers Name Role Phone [...] Result Comments Laboratory Studies 2018-06-05 08:13:00 Identifier [id number] Result Time Unknown 2018-06-05 08:13:00 Test Item Value Reference Range Comments Unknown (test code = 2951-2) 136 mmol/L Unknown 135-145 F Ordering Physician UnknownLaboratory Yipdjty4793-20-68 08:13:00Identifier 64295- 6 Result Time 2018-06-05 08:13:00Unknown Test Item Value Reference Range Comments Unknown (test code = 2823-3) 4.0 mmol/L Unknown 3.5-5.0 F Ordering Physician UnknownLaboratory Xrpomgl1393-30-17 08:13:00Identifier 14571- 6 Result Time 2018-06-05 08:13:00Unknown Test Item Value Reference Range Comments Unknown (test code = 2345-7) 87 mg/dL Unknown 70-100 F Ordering Physician UnknownLaboratory Qymlbtb3255-40-43 08:13:00Identifier 92205- 6 Result Time 2018-06-05 08:13:00Unknown Test Item Value Reference Range Comments Unknown (test code = 93078-7) 46.9 Unknown Unknown F Ordering Physician UnknownLaboratory Yawmuev2284-51-41 08:13:00Identifier 72082- 6 Result Time 2018-06-05 08:13:00Unknown Test Item Value Reference Range Comments Unknown (test code = NullTestCode) 56.7 Unknown Unknown F Ordering Physician UnknownLaboratory Jelywkv1284-02-90 08:13:00Identifier 23532- 6 Result Time 2018-06-05 08:13:00Unknown Test Item Value Reference Range Comments Unknown (test code = 2160-0) 1.43 mg/dL Unknown 0.67-1.17 F Ordering Physician UnknownLaboratory Tykukuj3191-57-81 08:13:00Identifier 96574- 6 Result Time 2018-06-05 08:13:00Unknown Test Item Value Reference Range Comments Unknown (test code = 2075-0) 104 mmol/L Unknown 101-111 F Ordering Physician UnknownLaboratory Exuxion2752-20-23 08:13:00Identifier 39715- 6 Result Time 2018-06-05 08:13:00Unknown Test Item Value Reference Range Comments Unknown (test code = 2028-9) 24 mmol/L Unknown 22-32 F Ordering Physician UnknownLaboratory Knllszy6452-10-95 08:13:00Identifier 97813- 6 Result Time 2018-06-05 08:13:00Unknown Test Item Value Reference Range Comments Unknown (test code = 14727-4) 9.0 mg/dL Unknown 8.6-10.3 F Ordering Physician UnknownLaboratory Fruktlo8747-95-06 08:13:00Identifier 92657- 6 Result Time 2018-06-05 08:13:00Unknown Test Item Value Reference Range Comments Unknown (test code = 3094-0) 24 mg/dL Unknown 6-24 F Ordering Physician UnknownLaboratory Avsdlss0074-75-76 08:13:00Identifier 77743- 6 Result Time 2018-06-05 08:13:00Unknown Test Item Value Reference Range Comments Unknown (test code = 3097-3) 16.8 Unknown 8-20 F Ordering Physician UnknownLaboratory Rzmasal1998-47-29 08:13:00Identifier 69898- 6 Result Time 2018-06-05 08:13:00Unknown Test Item Value Reference Range Comments Unknown (test code = 16362-0) 8 mmol/L Unknown 2-11 F Ordering Physician UnknownLaboratory Jevdxug2925-38-19 08:13:00Identifier 73928- 6 Result Time 2018-06-05 08:13:00Unknown Test Item Value Reference Range Comments Unknown (test code = 48218-5) 27.4 10^3/uL Unknown 3.5-10.8 F Ordering Physician UnknownLaboratory Fdmdvvq0290-50-03 08:13:00Identifier 56135- 6 Result Time 2018-06-05 08:13:00Unknown Test Item Value Reference Range Comments Unknown (test code = 788-0) 24 % Unknown 10.5-15 F Ordering Physician UnknownLaboratory Huocazk5715-01-52 08:13:00Identifier 71712- 6 Result Time 2018-06-05 08:13:00Unknown Test Item Value Reference Range Comments Unknown (test code = 789-8) 5.19 10^6 /uL Unknown 4.18-5.48 F Ordering Physician UnknownLaboratory Qxqupcz9846-19-30 08:13:00Identifier 89461- 6 Result Time 2018-06-05 08:13:00Unknown Test Item Value Reference Range Comments Unknown (test code = 777-3) 330 10^3/uL Unknown 150-450 F Ordering Physician UnknownLaboratory Jjmgtpm2427-29-19 08:13:00Identifier 64917- 6 Result Time 2018-06-05 08:13:00Unknown Test Item Value Reference Range Comments Unknown (test code = 05079-8) 0 Unknown Unknown F Ordering Physician UnknownLaboratory Hlqijte2163-49-34 08:13:00Identifier 47398- 6 Result Time 2018-06-05 08:13:00Unknown Test Item Value Reference Range Comments Unknown (test code = 771-6) 0 10^3/ul Unknown Unknown F Ordering Physician UnknownLaboratory Tveioqa3719-35-59 08:13:00Identifier 34352- 6 Result Time 2018-06-05 08:13:00Unknown Test Item Value Reference Range Comments Unknown (test code = 770-8) 84.7 % Unknown Unknown F Ordering Physician UnknownLaboratory Tpgqdry3279-00-42 08:13:00Identifier 44476- 6 Result Time 2018-06-05 08:13:00Unknown Test Item Value Reference Range Comments Unknown (test code = 5905-5) 8.6 % Unknown Unknown F Ordering Physician UnknownLaboratory Emqjwfs4036-30-86 08:13:00Identifier 51450- 6 Result Time 2018-06-05 08:13:00Unknown Test Item Value Reference Range Comments Unknown (test code = 28575-4) 8.6 fL Unknown 7.4-10.4 F Ordering Physician UnknownLaboratory Iiczayf8061-87-83 08:13:00Identifier 19854- 6 Result Time 2018-06-05 08:13:00Unknown Test Item Value Reference Range Comments Unknown (test code = 787-2) 78 fL Unknown 80-94 F Ordering Physician UnknownLaboratory Wwpdoef9448-49-49 08:13:00Identifier 70862- 6 Result Time 2018-06-05 08:13:00Unknown Test Item Value Reference Range Comments Unknown (test code = 786-4) 31 g/dL Unknown 31-36 F Ordering Physician UnknownLaboratory Pjsksnn0397-61-89 08:13:00Identifier 90162- 6 Result Time 2018-06-05 08:13:00Unknown Test Item Value Reference Range Comments Unknown (test code = 785-6) 24 pg Unknown 27-31 F Ordering Physician UnknownLaboratory Ccgypwr1228-17-72 08:13:00Identifier 05788- 6 Result Time 2018-06-05 08:13:00Unknown Test Item Value Reference Range Comments Unknown (test code = 736-9) 5.4 % Unknown Unknown F Ordering Physician UnknownLaboratory Ihnglcp2836-74-78 08:13:00Identifier 17994- 6 Result Time 2018-06-05 08:13:00Unknown Test Item Value Reference Range Comments Unknown (test code = 718-7) 12.3 g/dL Unknown 14.0-18.0 F Ordering Physician UnknownLaboratory Aqekidf7181-11-26 08:13:00Identifier 81125- 6 Result Time 2018-06-05 08:13:00Unknown Test Item Value Reference Range Comments Unknown (test code = 4544-3) 40 % Unknown 36-46 F Ordering Physician UnknownLaboratory Veogdlr4964-63-03 08:13:00Identifier 74304- 6 Result Time 2018-06-05 08:13:00Unknown Test Item Value Reference Range Comments Unknown (test code = 713-8) 0.8 % Unknown Unknown F Ordering Physician UnknownLaboratory Weubnke5414-76-07 08:13:00Identifier 53984- 6 Result Time 2018-06-05 08:13:00Unknown Test Item Value Reference Range Comments Unknown (test code = 706-2) 0.5 % Unknown Unknown F Ordering Physician UnknownLaboratory Anrfvmt6244-62-61 08:13:00Identifier 03621- 6 Result Time 2018-06-05 08:13:00Unknown Test Item Value Reference Range Comments Unknown (test code = CUQ8393) 23.2 10^3/ul Unknown 1.5-7.7 F Ordering Physician UnknownLaboratory Upvvrra8365-00-95 08:13:00Identifier 32929- 6 Result Time 2018-06-05 08:13:00Unknown Test Item Value Reference Range Comments Unknown (test code = 742-7) 2.4 10^3/ul Unknown 0-0.8 F Ordering Physician UnknownLaboratory Pcnymhi2757-13-67 08:13:00Identifier 22727- 6 Result Time 2018-06-05 08:13:00Unknown Test Item Value Reference Range Comments Unknown (test code = 731-0) 1.5 10^3/ul Unknown 1.0-4.8 F Ordering Physician UnknownLaboratory Hczbfer0028-06-23 08:13:00Identifier 22178- 6 Result Time 2018-06-05 08:13:00Unknown Test Item Value Reference Range Comments Unknown (test code = 711-2) 0.2 10^3/ul Unknown 0-0.6 F Ordering Physician UnknownLaboratory Ercpwso8940-77-66 08:13:00Identifier 40508- 6 Result Time 2018-06-05 08:13:00Unknown Test Item Value Reference Range Comments Unknown (test code = 704-7) 0.1 10^3/ul Unknown 0-0.2 F Ordering Physician UnknownLaboratory Pzltjak1667-13-92 06:46:00Identifier 88935- 6 Result Time 2018-06-04 06:46:00Unknown Test Item Value Reference Range Comments Unknown (test code = 76176-7) 0.05 ng/mL Unknown Unknown F Ordering Physician UnknownLaboratory Ikazhjp6069-41-44 06:46:00Identifier 23743- 6 Result Time 2018-06-04 06:46:00Unknown Test Item Value Reference Range Comments Unknown (test code = 2777-1) 2.8 mg/dL Unknown 2.5-5.0 F Ordering Physician UnknownLaboratory Uulcmqg0338-75-90 06:46:00Identifier 70157- 6 Result Time 2018-06-04 06:46:00Unknown Test Item Value Reference Range Comments Unknown (test code = 53519-6) 2.5 mg/dL Unknown 1.9-2.7 F Ordering Physician UnknownLaboratory Bfjhepo0743-78-50 10:48:00Identifier 92828- 6 Result Time 2018-06-03 10:48:00Unknown Test Item Value Reference Range Comments Unknown (test code = NullTestCode) 6.0 Unknown 5-9 F Ordering Physician UnknownLaboratory Qyvjxft2859-33-34 10:48:00Identifier 53137- 6 Result Time 2018-06-03 10:48:00Unknown Test Item Value Reference Range Comments Unknown (test code = 89361-3) 1.013 Unknown 1.010-1.030 F Ordering Physician UnknownLaboratory Xmlezkb6552-90-01 10:15:00Identifier 77832- 6 Result Time 2018-06-03 10:15:00Unknown Test Item Value Reference Range Comments Unknown (test code = 3016-3) 3.38 mcIU/mL Unknown 0.34-5.60 F Ordering Physician UnknownLaboratory Dlrghpp6552-17-48 10:15:00Identifier 27913- 6 Result Time 2018-06-03 10:15:00Unknown Test Item Value Reference Range Comments Unknown (test code = 00215-4) 1.14 Unknown 0.77-1.02 F Ordering Physician UnknownLaboratory Ehdrjiz3656-66-21 10:15:00Identifier 41148- 6 Result Time 2018-06-03 10:15:00Unknown Test Item Value Reference Range Comments Unknown (test code = 46835-3) 365 pg/mL Unknown Unknown F Ordering Physician UnknownLaboratory Osepzna9941-25-12 10:15:00Identifier 67940- 6 Result Time 2018-06-03 10:15:00Unknown Test Item Value Reference Range Comments Unknown (test code = 2885-2) 8.9 g/dL Unknown 6.4-8.9 F Ordering Physician UnknownLaboratory Cdlaxfw0352-14-17 10:15:00Identifier 15676- 6 Result Time 2018-06-03 10:15:00Unknown Test Item Value Reference Range Comments Unknown (test code = 1975-2) 0.60 mg/dL Unknown 0.2-1.0 F Ordering Physician UnknownLaboratory Uxswcmu5964-13-59 10:15:00Identifier 09681- 6 Result Time 2018-06-03 10:15:00Unknown Test Item Value Reference Range Comments Unknown (test code = NullTestCode) 4.9 g/dL Unknown 2-4 F Ordering Physician UnknownLaboratory Yjcnyhb2437-85-45 10:15:00Identifier 14888- 6 Result Time 2018-06-03 10:15:00Unknown Test Item Value Reference Range Comments Unknown (test code = 1988-5) 11.17 mg/L Unknown 0-8.00 F Ordering Physician UnknownLaboratory Vjwnspa0360-55-75 10:15:00Identifier 48156- 6 Result Time 2018-06-03 10:15:00Unknown Test Item Value Reference Range Comments Unknown (test code = 1920-8) 25 U/L Unknown 13-39 F Ordering Physician UnknownLaboratory Opwvpwp3728-27-02 10:15:00Identifier 87520- 6 Result Time 2018-06-03 10:15:00Unknown Test Item Value Reference Range Comments Unknown (test code = 6768-6) 153 U/L Unknown 34-104 F Ordering Physician UnknownLaboratory Racewsy0004-33-17 10:15:00Identifier 99952- 6 Result Time 2018-06-03 10:15:00Unknown Test Item Value Reference Range Comments Unknown (test code = 1759-0) 0.8 Unknown 1-3 F Ordering Physician UnknownLaboratory Tdvrnoy6693-47-48 10:15:00Identifier 02643- 6 Result Time 2018-06-03 10:15:00Unknown Test Item Value Reference Range Comments Unknown (test code = 71393-4) 4.0 g/dL Unknown 3.2-5.2 F Ordering Physician UnknownLaboratory Cltvtam1105-36-29 10:15:00Identifier 35016- 6 Result Time 2018-06-03 10:15:00Unknown Test Item Value Reference Range Comments Unknown (test code = 1742-6) 13 U/L Unknown 7-52 F Ordering Physician UnknownLaboratory Jdegxby2678-67-43 10:15:00Identifier 23987- 6 Result Time 2018-06-03 10:15:00Unknown Test Item Value Reference Range Comments Unknown (test code = 2524-7) 0.9 mmol/L Unknown 0.5-2.0 F Ordering Physician Unknown
--- OUTSIDE RECORDS SUMMARY | 2019-06-13 09:57 | XMS REPORT ---
:1930 Author Organization [facility] Care Team Providers Name Role [...] Result Comments Laboratory Studies 2018-06-05 08:13:00 Identifier [id number] Result Time Unknown 2018-06-05 08:13:00 Test Item Value Reference Range Comments Unknown (test code = 2951-2) 136 mmol/L Unknown 135-145 F Ordering Physician UnknownLaboratory Ngshxtz6429-65-68 08:13:00Identifier [id number]- 6 Result Time 2018-06-05 08:13:00Unknown Test Item Value Reference Range Comments Unknown (test code = 2823-3) 4.0 mmol/L Unknown 3.5-5.0 F Ordering Physician UnknownLaboratory Ogtdouf0602-22-10 08:13:00Identifier 74711- 6 Result Time 2018-06-05 08:13:00Unknown Test Item Value Reference Range Comments Unknown (test code = 2345-7) 87 mg/dL Unknown 70-100 F Ordering Physician UnknownLaboratory Bafeyfg0258-27-43 08:13:00Identifier [id number]- 6 Result Time 2018-06-05 08:13:00Unknown Test Item Value Reference Range Comments Unknown (test code = 83167-4) 46.9 Unknown Unknown F Ordering Physician UnknownLaboratory Adomxrn0925-08-82 08:13:00Identifier 59451- 6 Result Time 2018-06-05 08:13:00Unknown Test Item Value Reference Range Comments Unknown (test code = NullTestCode) 56.7 Unknown Unknown F Ordering Physician UnknownLaboratory Hobmivy0983-81-65 08:13:00Identifier 03395- 6 Result Time 2018-06-05 08:13:00Unknown Test Item Value Reference Range Comments Unknown (test code = 2160-0) 1.43 mg/dL Unknown 0.67-1.17 F Ordering Physician UnknownLaboratory Rwredfj1788-89-15 08:13:00Identifier 10643- 6 Result Time 2018-06-05 08:13:00Unknown Test Item Value Reference Range Comments Unknown (test code = 2075-0) 104 mmol/L Unknown 101-111 F Ordering Physician UnknownLaboratory Kxjeztr9211-46-98 08:13:00Identifier 93902- 6 Result Time 2018-06-05 08:13:00Unknown Test Item Value Reference Range Comments Unknown (test code = 2028-9) 24 mmol/L Unknown 22-32 F Ordering Physician UnknownLaboratory Ewmixnm0223-85-04 08:13:00Identifier 62194- 6 Result Time 2018-06-05 08:13:00Unknown Test Item Value Reference Range Comments Unknown (test code = 15681-9) 9.0 mg/dL Unknown 8.6-10.3 F Ordering Physician UnknownLaboratory Mwgscsn0389-49-73 08:13:00Identifier 73816- 6 Result Time 2018-06-05 08:13:00Unknown Test Item Value Reference Range Comments Unknown (test code = 3094-0) 24 mg/dL Unknown 6-24 F Ordering Physician UnknownLaboratory Qizkhxz8727-48-67 08:13:00Identifier 24931- 6 Result Time 2018-06-05 08:13:00Unknown Test Item Value Reference Range Comments Unknown (test code = 3097-3) 16.8 Unknown 8-20 F Ordering Physician UnknownLaboratory Jeatmnm2292-14-36 08:13:00Identifier 01863- 6 Result Time 2018-06-05 08:13:00Unknown Test Item Value Reference Range Comments Unknown (test code = 85733-5) 8 mmol/L Unknown 2-11 F Ordering Physician UnknownLaboratory Iscjeit9254-77-27 08:13:00Identifier 28485- 6 Result Time 2018-06-05 08:13:00Unknown Test Item Value Reference Range Comments Unknown (test code = 04492-1) 27.4 10^3/uL Unknown 3.5-10.8 F Ordering Physician UnknownLaboratory Jnrdcjv8720-15-76 08:13:00Identifier 97753- 6 Result Time 2018-06-05 08:13:00Unknown Test Item Value Reference Range Comments Unknown (test code = 788-0) 24 % Unknown 10.5-15 F Ordering Physician UnknownLaboratory Vfhmtpp6210-42-55 08:13:00Identifier 90911- 6 Result Time 2018-06-05 08:13:00Unknown Test Item Value Reference Range Comments Unknown (test code = 789-8) 5.19 10^6 /uL Unknown 4.18-5.48 F Ordering Physician UnknownLaboratory Kjpxwjd2360-22-14 08:13:00Identifier 41141- 6 Result Time 2018-06-05 08:13:00Unknown Test Item Value Reference Range Comments Unknown (test code = 777-3) 330 10^3/uL Unknown 150-450 F Ordering Physician UnknownLaboratory Wiyugsl2095-62-97 08:13:00Identifier 46535- 6 Result Time 2018-06-05 08:13:00Unknown Test Item Value Reference Range Comments Unknown (test code = 16441-4) 0 Unknown Unknown F Ordering Physician UnknownLaboratory Zyuyxeh6607-35-27 08:13:00Identifier 79463- 6 Result Time 2018-06-05 08:13:00Unknown Test Item Value Reference Range Comments Unknown (test code = 771-6) 0 10^3/ul Unknown Unknown F Ordering Physician UnknownLaboratory Adheqbw7743-12-29 08:13:00Identifier 64316- 6 Result Time 2018-06-05 08:13:00Unknown Test Item Value Reference Range Comments Unknown (test code = 770-8) 84.7 % Unknown Unknown F Ordering Physician UnknownLaboratory Stlzrxh1312-16-24 08:13:00Identifier 02367- 6 Result Time 2018-06-05 08:13:00Unknown Test Item Value Reference Range Comments Unknown (test code = 5905-5) 8.6 % Unknown Unknown F Ordering Physician UnknownLaboratory Nhiyhck2865-64-81 08:13:00Identifier 65806- 6 Result Time 2018-06-05 08:13:00Unknown Test Item Value Reference Range Comments Unknown (test code = 04977-2) 8.6 fL Unknown 7.4-10.4 F Ordering Physician UnknownLaboratory Cofskdx0214-60-64 08:13:00Identifier 36330- 6 Result Time 2018-06-05 08:13:00Unknown Test Item Value Reference Range Comments Unknown (test code = 787-2) 78 fL Unknown 80-94 F Ordering Physician UnknownLaboratory Dktomof9759-36-69 08:13:00Identifier 90203- 6 Result Time 2018-06-05 08:13:00Unknown Test Item Value Reference Range Comments Unknown (test code = 786-4) 31 g/dL Unknown 31-36 F Ordering Physician UnknownLaboratory Wnvpbfv3963-52-46 08:13:00Identifier 84513- 6 Result Time 2018-06-05 08:13:00Unknown Test Item Value Reference Range Comments Unknown (test code = 785-6) 24 pg Unknown 27-31 F Ordering Physician UnknownLaboratory Fzuamrk5756-76-25 08:13:00Identifier 95272- 6 Result Time 2018-06-05 08:13:00Unknown Test Item Value Reference Range Comments Unknown (test code = 736-9) 5.4 % Unknown Unknown F Ordering Physician UnknownLaboratory Lrjvwnh9630-53-73 08:13:00Identifier 98492- 6 Result Time 2018-06-05 08:13:00Unknown Test Item Value Reference Range Comments Unknown (test code = 718-7) 12.3 g/dL Unknown 14.0-18.0 F Ordering Physician UnknownLaboratory Cdcmpbf4450-65-37 08:13:00Identifier 56676- 6 Result Time 2018-06-05 08:13:00Unknown Test Item Value Reference Range Comments Unknown (test code = 4544-3) 40 % Unknown 36-46 F Ordering Physician UnknownLaboratory Nqtljgr2721-45-87 08:13:00Identifier 86221- 6 Result Time 2018-06-05 08:13:00Unknown Test Item Value Reference Range Comments Unknown (test code = 713-8) 0.8 % Unknown Unknown F Ordering Physician UnknownLaboratory Fpakcba4014-43-28 08:13:00Identifier 99897- 6 Result Time 2018-06-05 08:13:00Unknown Test Item Value Reference Range Comments Unknown (test code = 706-2) 0.5 % Unknown Unknown F Ordering Physician UnknownLaboratory Lmuzwbs1932 08:13:00Identifier 96696- 6 Result Time 2018-06-05 08:13:00Unknown Test Item Value Reference Range Comments Unknown (test code = YAM2926) 23.2 10^3/ul Unknown 1.5-7.7 F Ordering Physician UnknownLaboratory Gmkffri3157-09-87 08:13:00Identifier 74756- 6 Result Time 2018-06-05 08:13:00Unknown Test Item Value Reference Range Comments Unknown (test code = 742-7) 2.4 10^3/ul Unknown 0-0.8 F Ordering Physician UnknownLaboratory Lhmuvzm9420-57-91 08:13:00Identifier 90761- 6 Result Time 2018-06-05 08:13:00Unknown Test Item Value Reference Range Comments Unknown (test code = 731-0) 1.5 10^3/ul Unknown 1.0-4.8 F Ordering Physician UnknownLaboratory Acnxhvq3040-37-68 08:13:00Identifier 22663- 6 Result Time 2018-06-05 08:13:00Unknown Test Item Value Reference Range Comments Unknown (test code = 711-2) 0.2 10^3/ul Unknown 0-0.6 F Ordering Physician UnknownLaboratory Racsght4764-42-79 08:13:00Identifier 19393- 6 Result Time 2018-06-05 08:13:00Unknown Test Item Value Reference Range Comments Unknown (test code = 704-7) 0.1 10^3/ul Unknown 0-0.2 F Ordering Physician UnknownLaboratory Lclhkum3929-85-08 06:46:00Identifier 87486- 6 Result Time 2018-06-04 06:46:00Unknown Test Item Value Reference Range Comments Unknown (test code = 01566-1) 0.05 ng/mL Unknown Unknown F Ordering Physician UnknownLaboratory Zmeqexh4884-90-37 06:46:00Identifier 54185- 6 Result Time 2018-06-04 06:46:00Unknown Test Item Value Reference Range Comments Unknown (test code = 2777-1) 2.8 mg/dL Unknown 2.5-5.0 F Ordering Physician UnknownLaboratory Whyothp9794-55-36 06:46:00Identifier 09780- 6 Result Time 2018-06-04 06:46:00Unknown Test Item Value Reference Range Comments Unknown (test code = 86509-1) 2.5 mg/dL Unknown 1.9-2.7 F Ordering Physician UnknownLaboratory Ayfwxfw5098-63-80 10:48:00Identifier 78221- 6 Result Time 2018-06-03 10:48:00Unknown Test Item Value Reference Range Comments Unknown (test code = NullTestCode) 6.0 Unknown 5-9 F Ordering Physician UnknownLaboratory Jbvufqv8145-07-62 10:48:00Identifier 60488- 6 Result Time 2018-06-03 10:48:00Unknown Test Item Value Reference Range Comments Unknown (test code = 53267-3) 1.013 Unknown 1.010-1.030 F Ordering Physician UnknownLaboratory Huceljl3629-47-29 10:15:00Identifier 27841- 6 Result Time 2018-06-03 10:15:00Unknown Test Item Value Reference Range Comments Unknown (test code = 3016-3) 3.38 mcIU/mL Unknown 0.34-5.60 F Ordering Physician UnknownLaboratory Nhcqmmg0491-05-02 10:15:00Identifier 97439- 6 Result Time 2018-06-03 10:15:00Unknown Test Item Value Reference Range Comments Unknown (test code = 38868-8) 1.14 Unknown 0.77-1.02 F Ordering Physician UnknownLaboratory Tljxxcf2199-19-39 10:15:00Identifier 07470- 6 Result Time 2018-06-03 10:15:00Unknown Test Item Value Reference Range Comments Unknown (test code = 98748-9) 365 pg/mL Unknown Unknown F Ordering Physician UnknownLaboratory Fovoqvd6750-00-85 10:15:00Identifier 18053- 6 Result Time 2018-06-03 10:15:00Unknown Test Item Value Reference Range Comments Unknown (test code = 2885-2) 8.9 g/dL Unknown 6.4-8.9 F Ordering Physician UnknownLaboratory Dzfghkp0236-21-35 10:15:00Identifier 95393- 6 Result Time 2018-06-03 10:15:00Unknown Test Item Value Reference Range Comments Unknown (test code = 1975-2) 0.60 mg/dL Unknown 0.2-1.0 F Ordering Physician UnknownLaboratory Dqpvfrb1096-29-49 10:15:00Identifier 07256- 6 Result Time 2018-06-03 10:15:00Unknown Test Item Value Reference Range Comments Unknown (test code = NullTestCode) 4.9 g/dL Unknown 2-4 F Ordering Physician UnknownLaboratory Kevvxbh5543-25-05 10:15:00Identifier 89346- 6 Result Time 2018-06-03 10:15:00Unknown Test Item Value Reference Range Comments Unknown (test code = 1988-5) 11.17 mg/L Unknown 0-8.00 F Ordering Physician UnknownLaboratory Mrpmvlj0466-99-84 10:15:00Identifier 91700- 6 Result Time 2018-06-03 10:15:00Unknown Test Item Value Reference Range Comments Unknown (test code = 1920-8) 25 U/L Unknown 13-39 F Ordering Physician UnknownLaboratory Brsyzcy7032-29-09 10:15:00Identifier 05707- 6 Result Time 2018-06-03 10:15:00Unknown Test Item Value Reference Range Comments Unknown (test code = 6768-6) 153 U/L Unknown 34-104 F Ordering Physician UnknownLaboratory Sjzrhlr1342-50-20 10:15:00Identifier 36927- 6 Result Time 2018-06-03 10:15:00Unknown Test Item Value Reference Range Comments Unknown (test code = 1759-0) 0.8 Unknown 1-3 F Ordering Physician UnknownLaboratory Qyvpomw8922-50-98 10:15:00Identifier 25255- 6 Result Time 2018-06-03 10:15:00Unknown Test Item Value Reference Range Comments Unknown (test code = 97994-9) 4.0 g/dL Unknown 3.2-5.2 F Ordering Physician UnknownLaboratory Wiqupma9329-34-84 10:15:00Identifier 20852- 6 Result Time 2018-06-03 10:15:00Unknown Test Item Value Reference Range Comments Unknown (test code = 1742-6) 13 U/L Unknown 7-52 F Ordering Physician UnknownLaboratory Miritac7310-84-98 10:15:00Identifier 89925- 6 Result Time 2018-06-03 10:15:00Unknown Test Item Value Reference Range Comments Unknown (test code = 2524-7) 0.9 mmol/L Unknown 0.5-2.0 F Ordering Physician Unknown
--- OUTSIDE RECORDS SUMMARY | 2019-06-13 09:57 | XMS REPORT ---
:1930 Author Organization [facility] Care Team Providers Name Role [...] Result Comments Laboratory Studies 2018-06-05 08:13:00 Identifier [id number] Result Time Unknown 2018-06-05 08:13:00 Test Item Value Reference Range Comments Unknown (test code = 2951-2) 136 mmol/L Unknown 135-145 F Ordering Physician UnknownLaboratory Qwwjabi8946-79-00 08:13:00Identifier 94504- 6 Result Time 2018-06-05 08:13:00Unknown Test Item Value Reference Range Comments Unknown (test code = 2823-3) 4.0 mmol/L Unknown 3.5-5.0 F Ordering Physician UnknownLaboratory Tfgpmsi4498-81-05 08:13:00Identifier 04454- 6 Result Time 2018-06-05 08:13:00Unknown Test Item Value Reference Range Comments Unknown (test code = 2345-7) 87 mg/dL Unknown 70-100 F Ordering Physician UnknownLaboratory Pocsgnr0640-34-82 08:13:00Identifier 97713- 6 Result Time 2018-06-05 08:13:00Unknown Test Item Value Reference Range Comments Unknown (test code = 51161-7) 46.9 Unknown Unknown F Ordering Physician UnknownLaboratory Ztsqwaz1708-96-94 08:13:00Identifier 41235- 6 Result Time 2018-06-05 08:13:00Unknown Test Item Value Reference Range Comments Unknown (test code = NullTestCode) 56.7 Unknown Unknown F Ordering Physician UnknownLaboratory Gdrsppy2874-42-55 08:13:00Identifier 06925- 6 Result Time 2018-06-05 08:13:00Unknown Test Item Value Reference Range Comments Unknown (test code = 2160-0) 1.43 mg/dL Unknown 0.67-1.17 F Ordering Physician UnknownLaboratory Vfoqokn5019-23-48 08:13:00Identifier 12918- 6 Result Time 2018-06-05 08:13:00Unknown Test Item Value Reference Range Comments Unknown (test code = 2075-0) 104 mmol/L Unknown 101-111 F Ordering Physician UnknownLaboratory Npwmxxj8114-27-90 08:13:00Identifier 82863- 6 Result Time 2018-06-05 08:13:00Unknown Test Item Value Reference Range Comments Unknown (test code = 2028-9) 24 mmol/L Unknown 22-32 F Ordering Physician UnknownLaboratory Psqjdrb7559-44-96 08:13:00Identifier 69918- 6 Result Time 2018-06-05 08:13:00Unknown Test Item Value Reference Range Comments Unknown (test code = 48940-9) 9.0 mg/dL Unknown 8.6-10.3 F Ordering Physician UnknownLaboratory Fzxzkgb6668-40-62 08:13:00Identifier 85596- 6 Result Time 2018-06-05 08:13:00Unknown Test Item Value Reference Range Comments Unknown (test code = 3094-0) 24 mg/dL Unknown 6-24 F Ordering Physician UnknownLaboratory Nikficp2171-40-00 08:13:00Identifier 83240- 6 Result Time 2018-06-05 08:13:00Unknown Test Item Value Reference Range Comments Unknown (test code = 3097-3) 16.8 Unknown 8-20 F Ordering Physician UnknownLaboratory Zqfelix9962-49-53 08:13:00Identifier 17430- 6 Result Time 2018-06-05 08:13:00Unknown Test Item Value Reference Range Comments Unknown (test code = 86495-4) 8 mmol/L Unknown 2-11 F Ordering Physician UnknownLaboratory Bllxhle0018-24-26 08:13:00Identifier 81877- 6 Result Time 2018-06-05 08:13:00Unknown Test Item Value Reference Range Comments Unknown (test code = 81408-0) 27.4 10^3/uL Unknown 3.5-10.8 F Ordering Physician UnknownLaboratory Xxgywtp0831-02-31 08:13:00Identifier 88802- 6 Result Time 2018-06-05 08:13:00Unknown Test Item Value Reference Range Comments Unknown (test code = 788-0) 24 % Unknown 10.5-15 F Ordering Physician UnknownLaboratory Wkifqri9670-97-15 08:13:00Identifier 01346- 6 Result Time 2018-06-05 08:13:00Unknown Test Item Value Reference Range Comments Unknown (test code = 789-8) 5.19 10^6 /uL Unknown 4.18-5.48 F Ordering Physician UnknownLaboratory Ukparag8750-12-09 08:13:00Identifier 86741- 6 Result Time 2018-06-05 08:13:00Unknown Test Item Value Reference Range Comments Unknown (test code = 777-3) 330 10^3/uL Unknown 150-450 F Ordering Physician UnknownLaboratory Ndcnwyw8196-82-88 08:13:00Identifier 61756- 6 Result Time 2018-06-05 08:13:00Unknown Test Item Value Reference Range Comments Unknown (test code = 55671-9) 0 Unknown Unknown F Ordering Physician UnknownLaboratory Qvmnywq2287-74-51 08:13:00Identifier 20377- 6 Result Time 2018-06-05 08:13:00Unknown Test Item Value Reference Range Comments Unknown (test code = 771-6) 0 10^3/ul Unknown Unknown F Ordering Physician UnknownLaboratory Ejenawq1834-24-90 08:13:00Identifier 02406- 6 Result Time 2018-06-05 08:13:00Unknown Test Item Value Reference Range Comments Unknown (test code = 770-8) 84.7 % Unknown Unknown F Ordering Physician UnknownLaboratory Syhwozd5101-36-90 08:13:00Identifier 22395- 6 Result Time 2018-06-05 08:13:00Unknown Test Item Value Reference Range Comments Unknown (test code = 5905-5) 8.6 % Unknown Unknown F Ordering Physician UnknownLaboratory Twpkblf4513-20-91 08:13:00Identifier 03275- 6 Result Time 2018-06-05 08:13:00Unknown Test Item Value Reference Range Comments Unknown (test code = 01551-4) 8.6 fL Unknown 7.4-10.4 F Ordering Physician UnknownLaboratory Znosoze0971-65-26 08:13:00Identifier 65333- 6 Result Time 2018-06-05 08:13:00Unknown Test Item Value Reference Range Comments Unknown (test code = 787-2) 78 fL Unknown 80-94 F Ordering Physician UnknownLaboratory Bpqteot3404-68-32 08:13:00Identifier 17985- 6 Result Time 2018-06-05 08:13:00Unknown Test Item Value Reference Range Comments Unknown (test code = 786-4) 31 g/dL Unknown 31-36 F Ordering Physician UnknownLaboratory Nbffekd2007-29-52 08:13:00Identifier 09823- 6 Result Time 2018-06-05 08:13:00Unknown Test Item Value Reference Range Comments Unknown (test code = 785-6) 24 pg Unknown 27-31 F Ordering Physician UnknownLaboratory Lmikpmo7075-68-79 08:13:00Identifier 21283- 6 Result Time 2018-06-05 08:13:00Unknown Test Item Value Reference Range Comments Unknown (test code = 736-9) 5.4 % Unknown Unknown F Ordering Physician UnknownLaboratory Jwidctg4969-32-55 08:13:00Identifier 19167- 6 Result Time 2018-06-05 08:13:00Unknown Test Item Value Reference Range Comments Unknown (test code = 718-7) 12.3 g/dL Unknown 14.0-18.0 F Ordering Physician UnknownLaboratory Qhknvon5104-21-66 08:13:00Identifier 26673- 6 Result Time 2018-06-05 08:13:00Unknown Test Item Value Reference Range Comments Unknown (test code = 4544-3) 40 % Unknown 36-46 F Ordering Physician UnknownLaboratory Uyfniog1555-05-16 08:13:00Identifier 78384- 6 Result Time 2018-06-05 08:13:00Unknown Test Item Value Reference Range Comments Unknown (test code = 713-8) 0.8 % Unknown Unknown F Ordering Physician UnknownLaboratory Nwzibda1279-15-85 08:13:00Identifier 79655- 6 Result Time 2018-06-05 08:13:00Unknown Test Item Value Reference Range Comments Unknown (test code = 706-2) 0.5 % Unknown Unknown F Ordering Physician UnknownLaboratory Vbkxtrz6188-58-42 08:13:00Identifier 93328- 6 Result Time 2018-06-05 08:13:00Unknown Test Item Value Reference Range Comments Unknown (test code = XVF8091) 23.2 10^3/ul Unknown 1.5-7.7 F Ordering Physician UnknownLaboratory Oothzkz5592-19-17 08:13:00Identifier 95895- 6 Result Time 2018-06-05 08:13:00Unknown Test Item Value Reference Range Comments Unknown (test code = 742-7) 2.4 10^3/ul Unknown 0-0.8 F Ordering Physician UnknownLaboratory Bjnahna5738-67-56 08:13:00Identifier 24058- 6 Result Time 2018-06-05 08:13:00Unknown Test Item Value Reference Range Comments Unknown (test code = 731-0) 1.5 10^3/ul Unknown 1.0-4.8 F Ordering Physician UnknownLaboratory Ifumwpt3492-22-41 08:13:00Identifier 89244- 6 Result Time 2018-06-05 08:13:00Unknown Test Item Value Reference Range Comments Unknown (test code = 711-2) 0.2 10^3/ul Unknown 0-0.6 F Ordering Physician UnknownLaboratory Rpcwyuq5523-86-86 08:13:00Identifier 87051- 6 Result Time 2018-06-05 08:13:00Unknown Test Item Value Reference Range Comments Unknown (test code = 704-7) 0.1 10^3/ul Unknown 0-0.2 F Ordering Physician UnknownLaboratory Gmicxto3539-87-15 06:46:00Identifier 94044- 6 Result Time 2018-06-04 06:46:00Unknown Test Item Value Reference Range Comments Unknown (test code = 81592-4) 0.05 ng/mL Unknown Unknown F Ordering Physician UnknownLaboratory Myrfulf9366-87-31 06:46:00Identifier 29016- 6 Result Time 2018-06-04 06:46:00Unknown Test Item Value Reference Range Comments Unknown (test code = 2777-1) 2.8 mg/dL Unknown 2.5-5.0 F Ordering Physician UnknownLaboratory Xebzgke6634-94-23 06:46:00Identifier 91860- 6 Result Time 2018-06-04 06:46:00Unknown Test Item Value Reference Range Comments Unknown (test code = 09778-8) 2.5 mg/dL Unknown 1.9-2.7 F Ordering Physician UnknownLaboratory Bhnljlg8407-82-82 10:48:00Identifier 31755- 6 Result Time 2018-06-03 10:48:00Unknown Test Item Value Reference Range Comments Unknown (test code = NullTestCode) 6.0 Unknown 5-9 F Ordering Physician UnknownLaboratory Tzbvelf6615-95-95 10:48:00Identifier 00699- 6 Result Time 2018-06-03 10:48:00Unknown Test Item Value Reference Range Comments Unknown (test code = 51650-2) 1.013 Unknown 1.010-1.030 F Ordering Physician UnknownLaboratory Nacquzw6222-13-06 10:15:00Identifier 07098- 6 Result Time 2018-06-03 10:15:00Unknown Test Item Value Reference Range Comments Unknown (test code = 3016-3) 3.38 mcIU/mL Unknown 0.34-5.60 F Ordering Physician UnknownLaboratory Zwsrzlr0690-21-37 10:15:00Identifier 82212- 6 Result Time 2018-06-03 10:15:00Unknown Test Item Value Reference Range Comments Unknown (test code = 56481-3) 1.14 Unknown 0.77-1.02 F Ordering Physician UnknownLaboratory Wiksgyk7057-26-48 10:15:00Identifier 74368- 6 Result Time 2018-06-03 10:15:00Unknown Test Item Value Reference Range Comments Unknown (test code = 95880-1) 365 pg/mL Unknown Unknown F Ordering Physician UnknownLaboratory Wxckzwj5067-52-02 10:15:00Identifier 51955- 6 Result Time 2018-06-03 10:15:00Unknown Test Item Value Reference Range Comments Unknown (test code = 2885-2) 8.9 g/dL Unknown 6.4-8.9 F Ordering Physician UnknownLaboratory Ljoayio5540-74-52 10:15:00Identifier 62824- 6 Result Time 2018-06-03 10:15:00Unknown Test Item Value Reference Range Comments Unknown (test code = 1975-2) 0.60 mg/dL Unknown 0.2-1.0 F Ordering Physician UnknownLaboratory Dovvdut7199-43-40 10:15:00Identifier 81009- 6 Result Time 2018-06-03 10:15:00Unknown Test Item Value Reference Range Comments Unknown (test code = NullTestCode) 4.9 g/dL Unknown 2-4 F Ordering Physician UnknownLaboratory Uqitebj0269-85-90 10:15:00Identifier 58016- 6 Result Time 2018-06-03 10:15:00Unknown Test Item Value Reference Range Comments Unknown (test code = 1988-5) 11.17 mg/L Unknown 0-8.00 F Ordering Physician UnknownLaboratory Tulirtw6903-28-09 10:15:00Identifier 69638- 6 Result Time 2018-06-03 10:15:00Unknown Test Item Value Reference Range Comments Unknown (test code = 1920-8) 25 U/L Unknown 13-39 F Ordering Physician UnknownLaboratory Srgyfjc1953-86-74 10:15:00Identifier 42281- 6 Result Time 2018-06-03 10:15:00Unknown Test Item Value Reference Range Comments Unknown (test code = 6768-6) 153 U/L Unknown 34-104 F Ordering Physician UnknownLaboratory Tffhkko4105-99-66 10:15:00Identifier 39348- 6 Result Time 2018-06-03 10:15:00Unknown Test Item Value Reference Range Comments Unknown (test code = 1759-0) 0.8 Unknown 1-3 F Ordering Physician UnknownLaboratory Kixazuo6891-52-07 10:15:00Identifier 84070- 6 Result Time 2018-06-03 10:15:00Unknown Test Item Value Reference Range Comments Unknown (test code = 19384-2) 4.0 g/dL Unknown 3.2-5.2 F Ordering Physician UnknownLaboratory Kkrbaph2156-19-47 10:15:00Identifier 65713- 6 Result Time 2018-06-03 10:15:00Unknown Test Item Value Reference Range Comments Unknown (test code = 1742-6) 13 U/L Unknown 7-52 F Ordering Physician UnknownLaboratory Ipruvrn2057-48-73 10:15:00Identifier 47741- 6 Result Time 2018-06-03 10:15:00Unknown Test Item Value Reference Range Comments Unknown (test code = 2524-7) 0.9 mmol/L Unknown 0.5-2.0 F Ordering Physician Unknown
[2019-06-13] MEDS ORDERED: Tranexamic Acid 1,000 MG/10 ML SDV TOPICAL ONE (10:13)
--- NOTE | 2019-06-13 10:41 | ED ---
Throat Pain/Nasal Congestion - HPI Summary HPI Summary: 89-year-old male with a significant past medical history of anemia, polycythemia vera, hypertension, aortic stenosis, benign prostatic hypertrophy, TIA whom is taking Plavix presents to the ED today with a CC of right sided epistaxis. Pt currently denies SOB, light headedness, chest pain, weakness. Patient is resting on Hospital stretcher applying pressure to his nose in no acute distress. The patient endorses history of nosebleeds and states when this episode occurred he was cleaning his nose with a washcloth. Patient is otherwise well and denies fever, shortness of breath, chest pain, abdominal pain , nausea, vomiting diarrhea, sore throat, nasal congestion, rash. - History of Current Complaint Chief Complaint: EDEpistaxis Hx Obtained From: Patient Onset/Duration: Sudden Onset, Lasting Hours Severity: Mild - Allergies/Home Medications Allergies/Adverse Reactions: Allergies Allergy/AdvReac Type Severity Reaction Status Date / Time No Known Allergies Allergy Verified 06/13/19 09:30 Home Medications: Home Medications Multivitamins/Minerals TAB* [Theragran/minerals TAB*] 1 tab PO DAILY 01/02/12 [ History Confirmed 06/13/19] Calcium Carbonate/Vitamin D3 [Calcium 600-Vit D3 800 Caplet] 1 tab PO DAILY [History Confirmed 06/13/19] Magnesium Oxide TAB* [MagOx 400 TAB*] 400 mg PO DAILY 06/03/18 [History Confirmed 06/13/19] Verapamil HCl [Verapamil ER] 60 mg PO DAILY 06/03/18 [History Confirmed 06/13/19 ] Atorvastatin* [Lipitor*] 40 mg PO QPM 01/21/19 [History Confirmed 06/13/19] Calcium Carb/D3/Magnesium/Zinc [Lj Mag Zinc + D3 Tablet] 1 each PO DAILY [History Confirmed 06/13/19] Clopidogrel TAB* [Plavix TAB*] 75 mg PO DAILY 01/21/19 [History Confirmed ] HydroxyUREA CAP* [Hydrea CAP*] 500 mg PO EVERY OTHER DAY 01/21/19 [History Confirmed 06/13/19] Pantoprazole TAB * [Protonix TAB*] 80 mg PO DAILY 01/21/19 [History Confirmed ] Topiramate TAB(*) [Topamax 25 MG tab] 50 mg PO BID 01/21/19 [History Confirmed 06/13/19] PMH/Surg Hx/FS Hx/Imm Hx Endocrine/Hematology History: Reports: Hx Anemia - iron def., taking supplement , Other Endocrine/Hematological Disorders - Polycythemia vera Denies: Hx Anticoagulant Therapy, Hx Diabetes Cardiovascular History: Reports: Hx Hypertension, Other Cardiovascular Problems/ Disorders - mild aortic stenosis Denies: Hx Angina, Hx Coronary Artery Disease, Hx Hypercholesterolemia, Hx Myocardial Infarction, Hx Pacemaker/ICD Respiratory History: Reports: Other Respiratory Problems/Disorders - RECENT PNEUMONIA 07/2016, and also in 2016, DR. DOWELL AWARE Denies: Hx Asthma, Hx Chronic Obstructive Pulmonary Disease (COPD) GI History: Reports: Hx Gastroesophageal Reflux Disease - FUNDOPLICATION SURGERY 2000, ON NEXIUM., Hx Hiatal Hernia History: Reports: Other Problems/Disorders - BPH Musculoskeletal History: Reports: Hx Arthritis, Other Musculoskeletal History - polymyalgia rheumatica Sensory History: Reports: Hx Cataracts, Hx Contacts or Glasses, Hx Hearing Aid, Hx Hearing Problem Denies: Hx Legally Blind, Hx Deafness, Other Sensory Impairments Opthamlomology History: Reports: Hx Cataracts, Hx Contacts or Glasses Denies: Hx Legally Blind, Other Sensory Impairments Neurological History: Reports: Hx Headaches - MORRISON once a day, "poor circulation back of head", Hx Transient Ischemic Attacks (TIA), Other Neuro Impairments/ Disorders - basilar artery occlusion & stenosis, dizziness Psychiatric History: Denies: Hx Panic Disorder - Surgical History Surgery Procedure, Year, and Place: 2000 LAP C[facility] FUNDOPLICATION [facility]. 2000 L HIP FRACTURE [facility]. 07/29 RIGHT INGUINAL HERNAI REPAIR Hx Anesthesia Reactions: No - Immunization History Date of Tetanus Vaccine: utd Date of Influenza Vaccine: fall 2016 Infectious Disease History: No Infectious Disease History: Denies: Traveled Outside the [place] in Last 30 Days - Family History Known Family History: Positive: None, Other - aneurysm, alcoholism - Social History Alcohol Use: Occasionally Alcohol Amount: wine or beer Hx Substance Use: No Substance Use Type: Reports: None Hx Tobacco Use: Yes Smoking Status (MU): Former Smoker Amount Used/How Often: light smoker for approx 6 yrs Review of Systems Constitutional: Negative Eyes: Negative Positive: Epistaxis. Negative: Dental Pain, Sore Throat, Ear Ache, Nasal Discharge Cardiovascular: Negative Respiratory: Negative Gastrointestinal: Negative Genitourinary: Negative Musculoskeletal: Negative Skin: Negative Neurological/Mental Status: Negative Psychological: Normal All Other Systems Reviewed And Are Negative: Yes Physical Exam - Summary Physical Exam Summary: Patient is in no acute distress. Patient has no evidence of labored breathing and is able to speak in full non-broken sentences. There is evidence of epistaxis originating from the right naris consistent with right anterior epistaxis. Patient has no significant postnasal drip. Patient does not appear extremely pallorous not suggestive of acute blood loss anemia. Triage Information Reviewed: Yes Vital Signs On Initial Exam: Initial Vitals Temp Pulse Resp BP Pulse Ox 98.1 F 48 18 170/85 100 06/13/19 09:25 06/13/19 09:25 06/13/19 09:25 06/13/19 09:25 06/13/19 09:25 Vital Signs Reviewed: Yes Appearance: Positive: Well-Appearing, No Pain Distress, Well-Nourished Skin: Positive: Warm, Skin Color Reflects Adequate Perfusion Eyes: Positive: EOMI, HOA ENT: Positive: Hearing grossly normal Respiratory/Lung Sounds: Positive: Clear to Auscultation, Breath Sounds Present Cardiovascular: Positive: RRR, S1, S2 Abdomen Description: Positive: Nontender, Soft Bowel Sounds: Positive: Present Musculoskeletal: Positive: Strength/ROM Intact Neurological: Positive: Sensory/Motor Intact, Alert, Oriented to Person Place, Time, Normal Gait, Facial Symmetry, Speech Normal Psychiatric: Positive: Normal, Affect/Mood Appropriate AVPU Assessment: Alert Procedures - Sedation Patient Received Moderate/Deep Sedation with Procedure: No Diagnostics - Vital Signs Vital Signs Temp Pulse Resp BP Pulse Ox 06/13/19 09:25 98.1 F 48 18 170/85 100 - Laboratory Result Diagrams: 06/13/19 12:11 06/13/19 12:11 Lab Statement: Any lab studies that have been ordered have been reviewed, and results considered in the medical decision making process. EENT Course/Dx - Course Course Of Treatment: Patient was evaluated in the emergency department today for a right anterior nosebleed. Vitals are noted and stable. Patient appeared to be hemodynamically unstable. Patient had no respiratory distress. Pressure was applied for approximately 15 minutes a nasal clamp which did not successfully stop bleeding. A 4 x 4 soaked with TXA was inserted into the patient's right naris for 20 minutes which was able to control bleeding for 1 hour of observation. Patient labs returned showing no significant anemia and no other concerning findings. Patient was given instructions to follow up with ENT and how to prevent nosebleeds in the future. Patient discharged to outpatient follow-up with resolved epistaxis. - Differential Diagnoses Differential Diagnoses: Epistaxis - Diagnoses Provider Diagnoses: Epistaxis - Critical Care Time Critical Care Statement: Critical care time is provided exclusive of any time spent performing procedures. Discharge ED - Sign-Out/Discharge Documenting (check all that apply): Patient Departure - Discharge Plan Condition: Stable Disposition: HOME Patient Education Materials: Nosebleed (ED) Referrals: Bora Leonardo MD [Medical Doctor] - 3 Days Additional Instructions: Please be sure not to pick your nose or blow your nose for the next 24-48 hours to prevent recurrence of nosebleed. Please follow-up with ENT in 3-5 days for further evaluation and management of nosebleeds. Please return to this emergency department immediately should you develop any new or worsening symptoms. - Billing Disposition and Condition Condition: STABLE Disposition: Home
[2019-06-13 12:28] LABS: Hematocrit 36 % (42-52); Hemoglobin 11.7 g/dL (14.0-18.0); Mean Corpuscular HGB Conc 32 g/dL (31-36); Mean Corpuscular Hemoglobin 28 pg (27-31); Mean Corpuscular Volume 88 fL (80-94); Red Blood Count 4.16 10^6 /uL (4.18-5.48); Red Cell Distribution Width 25 % (10-15)
[2019-06-13 12:32] LABS: Activated Partial Thrombo Time 29.8 seconds (26.0-38.0); INR 1.19 (0.82-1.09)
[2019-06-13 12:41] LABS: ALT 16 U/L (7-52); Albumin/Globulin Ratio 0.9 (1-3); Alkaline Phosphatase 105 U/L (34-104); BUN/Creatinine Ratio 24.3 (8-20); Blood Urea Nitrogen 36 mg/dL (6-24); CO2 Carbon Dioxide 23 mmol/L (22-32); Calcium 9.9 mg/dL (8.6-10.3); Chloride 106 mmol/L (101-111); EGFR African American 54.4 (>60); Globulin 4.5 g/dL (2-4); Glucose 93 mg/dL (70-100); Sodium 136 mmol/L (135-145); Total Protein 8.5 g/dL (6.4-8.9)
[2019-06-13 13:01] LABS: ABS Basophils 0.1 10^3/ul (0-0.2); ABS Eosinophils 0.1 10^3/ul (0-0.6); ABS Lymphocytes 1.1 10^3/ul (1.0-4.8); ABS Monocytes 1.8 10^3/ul (0-0.8); ABS Neutrophils 10.3 10^3/ul (1.5-7.7); Eosinophil % 0.8 %; Mean Platelet Volume 8.4 fL (7.4-10.4); Nucleated Red Blood Cells % 0.2; Platelet Count 294 10^3/uL (150-450); White Blood Count 13.4 10^3/uL (3.5-10.8)
[2019-06-13 13:20] LABS: Anion Gap 7 mmol/L (2-11)
[2019-06-13 13:47] VITALS: BP 145/65
== END 2019-06-13 13:45 | disposition home or self-care (01) ==
LOC: ED 09:22
DX: R04.0 Epistaxis (principal); F17.200 Nicotine dependence, unspecified, uncomplicated; D50.9 Iron deficiency anemia, unspecified; D45 Polycythemia vera; I10 Essential (primary) hypertension; K21.9 Gastro-esophageal reflux disease without esophagitis
CPT/HCPCS: 36415; 80053; 85025; 85610; 85730; 99283